=== PATIENT | male | born 1960 | race Caucasian/White ===

== ENCOUNTER → 2016-04-15 | Outpatient (CLI) | payer OTHER ==
[~2016-04-15] MED LIST: BUPR300T43 PO; CYAN100T PO; ERYTOIN6 OPL; IBUP-1451 PO; KETO2SHA TOP; LANS30CA12 PO; LISI-725 PO; METO-217 PO; NRN/300 PO; OXYC-643 PO; POLYSOL4 OPL; PRAV20TA PO; ROSU20TA PO; VENL-273 PO
--- NOTE | 2016-04-15 08:53 | DIAGNOSTIC IMAGING REPORT ---
MRI OF THE LEFT KNEE CLINICAL HISTORY: Left knee effusion. COMPARISON STUDY: Radiographs of left knee dated 04/04/2016. TECHNIQUE: MRI of the left knee was performed utilizing proton density, T1, and T2-weighted sequences in the axial, sagittal, coronal planes. IV contrast was not administered for this examination. FINDINGS: Menisci: The medial and lateral menisci are intact. Ligaments: The anterior and posterior cruciate ligaments are intact. The medial and lateral collateral ligaments are within normal limits. Extensor mechanism: The extensor mechanism is intact. There is nonspecific edema identified within the suprapatellar fat pad. Hoffa's fat pad is normal in appearance. Articular cartilage and bone: The articular cartilage is intact and well maintained all 3 compartments. Normal marrow signal is preserved of the visualized bony structures. Joint effusion: There is a small joint effusion. Soft tissues: The musculature surrounding the knee joint is normal in bulk and signal intensity. IMPRESSION: 1. There is no evidence of meniscal or ligamentous injury in the left knee. 2. There is a small joint effusion. 3. There is nonspecific edema within the suprapatellar fat pad. This could be seen in the setting of the quadriceps fat pad impingement syndrome. Clinical correlation will be required. Electronically signed by: Jesse Peguero M.D. 04/15/2016 8:50 AM Dictated Date/Time: 04/15/2016 8:42 AM
== END | disposition home or self-care (01) ==
LOC: C.MRI 07:44
PROVIDERS: ATTEND Family Medicine
DX: M23.8X2 Other internal derangements of left knee (principal); M25.462 Effusion, left knee; R60.0 Localized edema

== ENCOUNTER 2016-09-27 19:51 | Emergency (ER) | payer OTHER ==
[~2016-09-27] VITALS: Ht 185.4 cm; Wt 119.6 kg
[~2016-09-27 19:51] MED LIST changes: -CYAN100T PO; -LISI-725 PO; -OXYC-643 PO; -ROSU20TA PO
[2016-09-27 19:58] VITALS: TEMP 37.4; Ht 185.4 cm; Wt 119.6 kg
[2016-09-27] MEDS ORDERED: ROSU20TA PO (20:18)
[2016-09-27] MEDS ORDERED: CYAN100T PO (20:18)
[2016-09-27] MEDS ORDERED: LISI-725 PO (20:18)
[2016-09-27] MEDS ORDERED: OXYC-643 PO (20:18)
[2016-09-27] MEDS ORDERED: DEXAMETHASONE SOD INJ 10 MG/ML VIAL IV ONE (21:30)
[2016-09-27] MEDS ORDERED: PROCHLORPERAZINE 5 MG/ML 2 ML VIAL IV STA (21:30)
[2016-09-27] MEDS ORDERED: KETOROLAC TROMETHAMINE 30 MG/ML VIAL IV STA (21:30)
[2016-09-27] MEDS ORDERED: SODIUM CHLORIDE 0.9% 1000ML 1,000 ML IV STA (21:30)
[2016-09-27 21:31] LABS: BASO % 0.3 %; BASO ABS # 0.03 K/uL (0-0.2); COMPLETE YES; EOS % 0.7 %; HEMATOCRIT 44.1 % (42-52); IG% 0.2 %; LYMPH % 19.9 %; LYMPH ABS # 2.24 K/uL (1.2-3.4); MEAN CELL VOLUME 87.7 fL (80-100); MEAN CORPUSCULAR HEMOGLOBIN 29.6 pg (25-34); MEAN CORPUSCULAR HGB CONC 33.8 g/dl (32-36); MEAN PLATELET VOLUME 10.2 fL (7.4-10.4); MONO % 10.4 %; NEUT % 68.5 %; PLATELET COUNT 215 K/uL (130-400); RED BLOOD COUNT 5.03 M/uL (4.7-6.1); WHITE BLOOD COUNT 11.23 K/uL (4.8-10.8)
[2016-09-27 21:45] LABS: ALB/GLOB RATIO 1.2 (0.9-2); CALCIUM 8.9 mg/dl (8.5-10.1); CREATININE 1.4 mg/dl (0.60-1.40); POTASSIUM 4.2 mmol/L (3.5-5.1)
[2016-09-27 21:55] LABS: INR 0.9 (0.9-1.1); PROTHROMBIN TIME (PATIENT) 10.1 SECONDS (9.0-12.0)
--- NOTE | 2016-09-27 21:55 | DIAGNOSTIC IMAGING REPORT ---
SINGLE VIEW CHEST CLINICAL HISTORY: Change in mental status. Weakness. FINDINGS: An AP, portable, upright chest radiograph is compared to study dated 03/19/2013. The examination is degraded by portable technique, apical lordotic positioning, and patient rotation. The heart is top normal for projection. The pulmonary vasculature is noncongested. There is minimal bibasilar atelectasis. The lungs and pleural spaces are otherwise clear. No pneumothorax is seen. The bony thorax is grossly intact. IMPRESSION: No acute cardiopulmonary abnormality. Electronically signed by: Jesse Peguero M.D. 09/27/2016 9:53 PM Dictated Date/Time: 09/27/2016 9:52 PM
[2016-09-27 22:01] LABS: MAGNESIUM 2.1 mg/dl (1.8-2.4)
--- NOTE | 2016-09-27 22:24 | DIAGNOSTIC IMAGING REPORT ---
CT SCAN OF THE BRAIN WITHOUT IV CONTRAST CLINICAL HISTORY: Weakness. Change in mental status. COMPARISON STUDY: MRI of the brain dated 09/12/2012. TECHNIQUE: Unenhanced axial CT scan of the brain is performed from the vertex to the skull base. Automated dose control exposure was utilized. CT DOSE: 537.48 mGy.cm FINDINGS: Brain parenchyma: The brain parenchyma is normal in appearance. There is no hemorrhage, mass effect, or evidence of acute territorial ischemia by CT criteria. Thomas-white matter is preserved. No extra-axial fluid collection is seen. Ventricles, sulci, cisterns: Normal in configuration. Intracranial vasculature: The visualized intracranial vasculature at the skull base is normal in appearance. Calvarium: Unremarkable. Sinuses and mastoids: The visualized paranasal sinuses are clear. The mastoid air cells are well pneumatized. Orbits: The bony orbits are grossly intact. IMPRESSION: There is no hemorrhage, mass effect, or evidence of acute territorial ischemia by CT criteria. Electronically signed by: Jesse Peguero M.D. 09/27/2016 10:22 PM Dictated Date/Time: 09/27/2016 10:20 PM
--- NOTE | 2016-09-27 22:38 | EMERGENCY ROOM VISIT NOTE ---
History Report prepared by Beth: Shin Mccartney Under the Supervision of: Dr. Jian Whittington D.O. First contact with patient: 21:22 Chief Complaint: HEAD PAIN Stated Complaint: SEVERE HEAD PAIN History of Present Illness The patient is a 56 year old male who presents to the Emergency Room with complaints of a worsening headache starting three days ago. He rates his pain as a 9/10 in severity. The patient states he has had headaches before, but denies any similar to the severity of his current headache. The patient reports that he has a history of herniated discs and back surgeries. He reports that he has been feeling a recent tightness in his back and neck that has been causing pain. He reports that the recent pain has prompted him to visit his chiropractor yesterday, but denies any relief of symptoms. The patient states that the chiropractor told him to report to the ED if his symptoms worsened. He reports that he took medication to relieve his symptoms, but denies any relief of symptoms. The patient states that the headache has been worsening and is worse with movement and coughing. The patient states that due to the pain in his neck and head, his eustachian tubes feel like "they are going to burst." The patient reports that he took Oxycodone last night to aid him with sleeping. He reports that the tightness in his neck has improved since yesterday. The patient also reports a leg pain that it feels like it is bruising, a heavy sensation in his chest, and a shortness of breath. He reports that he has a history of PTSD and panic attacks and feels as if his chest pain and SOB may be stemming from these issues. He also reports that his temperature has been 99 and he always feels cold. The patient denies any history of migraines or concussions. Source of History: patient Onset: three days ago Position: head Symptom Intensity: 9/10 Quality: ache Timing: worsening Modifying Factors (Worsening): movement, other (coughing) Associated Symptoms: + neck pain, + chest pain, + SOB, + back pain Review of Systems See HPI for pertinent positives & negatives. A total of 10 systems reviewed and were otherwise negative. Past Medical & Surgical Medical Problems: (1) GERD (gastroesophageal reflux disease) (2) Herniated disc (3) Hypertension Surgical Problems: (1) Previous back surgery (2) [place] teeth removed Family History Cancer Diabetes mellitus Hypertension Social History Smoking Status: Never Smoker Marital Status: Housing Status: lives with significant other Occupation Status: employed Current/Historical Medications Scheduled Bupropion Hcl (Bupropion Hcl Xl), 300 MG PO DAILY Cyanocobalamin (Vitamin B-12), 100 MCG PO DAILY Gabapentin (Neurontin), 300 MG PO BID Ketoconazole (Topical) (Ketoconazole), 1 APPLN TOP WK Lansoprazole (Prevacid), 30 MG PO DAILY Lisinopril (Zestril), 20 MG PO QAM Metoprolol Succinate (Toprol Xl), 50 MG PO DAILY Polyethylene Glycol-Propylene (Systane), 1 DROP OPL TID Rosuvastatin Calcium (Crestor), 20 MG PO QPM Venlafaxine Hcl (Venlafaxine Hcl Er), 75 MG PO DAILY Scheduled PRN Ibuprofen Tab (Motrin), 800 MG PO TID PRN for Pain Oxycodone/Acetaminophen 5MG/325MG (Oxycodone/Acetaminophen 5MG/325MG), 1-2 TABLETS PO Q6 PRN for Pain Allergies Coded Allergies: No Known Allergies (Unverified , 09/27/16) Physical Exam Vital Signs Date Time Temp Pulse Resp B/P (MAP) Pulse Ox O2 Delivery O2 Flow Rate FiO2 09/27/16 22:21 56 16 154/95 95 09/27/16 19:58 37.4 64 20 161/101 93 Room Air Physical Exam CONSTITUTIONAL/VITAL SIGNS: Reviewed / noted above. GENERAL: Increased head pain with sitting up. Non-toxic in appearance. INTEGUMENTARY: Warm, dry, and [place]. HEAD: Normocephalic. EYES: without scleral icterus or trauma. ENT/OROPHARYNX: clear and moist. LYMPHADENOPATHY/NECK: Is supple without lymphadenopathy or meningismus. RESPIRATORY: Lungs clear and equal. CARDIOVASCULAR: Regular rate and rhythm. GI/ABDOMEN: Soft and nontender. No organomegaly or pulsatile mass. No rebound or guarding. Normal bowel sounds. EXTREMITIES: Warm and well perfused. BACK: No CVA tenderness. NEUROLOGICAL: Intact without focal deficits. PSYCHIATRIC: normal affect. MUSCULOSKELETAL: Normally developed with good muscle tone. Medical Decision & Procedures ER Provider Diagnostic Interpretation: Radiology results as stated below per my review and radiologist interpretation: CT SCAN OF THE BRAIN WITHOUT IV CONTRAST CLINICAL HISTORY: Weakness. Change in mental status. COMPARISON STUDY: MRI of the brain dated 09/12/2012. TECHNIQUE: Unenhanced axial CT scan of the brain is performed from the vertex to the skull base. Automated dose control exposure was utilized. CT DOSE: 537.48 mGy.cm FINDINGS: Brain parenchyma: The brain parenchyma is normal in appearance. There is no hemorrhage, mass effect, or evidence of acute territorial ischemia by CT criteria. Thomas-white matter is preserved. No extra-axial fluid collection is seen. Ventricles, sulci, cisterns: Normal in configuration. Intracranial vasculature: The visualized intracranial vasculature at the skull base is normal in appearance. Calvarium: Unremarkable. Sinuses and mastoids: The visualized paranasal sinuses are clear. The mastoid air cells are well pneumatized. Orbits: The bony orbits are grossly intact. IMPRESSION: There is no hemorrhage, mass effect, or evidence of acute territorial ischemia by CT criteria. Electronically signed by: Jesse Peguero M.D. 09/27/2016 10:22 PM Dictated Date/Time: 09/27/2016 10:20 PM SINGLE VIEW CHEST CLINICAL HISTORY: Change in mental status. Weakness. FINDINGS: An AP, portable, upright chest radiograph is compared to study dated 03/19/2013. The examination is degraded by portable technique, apical lordotic positioning, and patient rotation. The heart is top normal for projection. The pulmonary vasculature is noncongested. There is minimal bibasilar atelectasis. The lungs and pleural spaces are otherwise clear. No pneumothorax is seen. The bony thorax is grossly intact. IMPRESSION: No acute cardiopulmonary abnormality. Electronically signed by: Jesse Peguero M.D. 09/27/2016 9:53 PM Dictated Date/Time: 09/27/2016 9:52 PM Laboratory Results 09/27/16 20:42 Red Blood Count 5.03, Mean Corpuscular Volume 87.7, Mean Corpuscular Hemoglobin 29.6, Mean Corpuscular Hemoglobin Concent 33.8, Mean Platelet Volume 10.2, Neutrophils (%) (Auto) 68.5, Lymphocytes (%) (Auto) 19.9, Monocytes (%) (Auto) 10.4, Eosinophils (%) (Auto) 0.7, Basophils (%) (Auto) 0.3, Neutrophils # (Auto ) 7.69, Lymphocytes # (Auto) 2.24, Monocytes # (Auto) 1.17, Eosinophils # (Auto ) 0.08, Basophils # (Auto) 0.03 09/27/16 20:42 Test 09/27/16 20:40 09/27/16 20:42 Prothrombin Time 10.1 SECONDS (9.0-12.0) Prothromb Time International Ratio 0.9 (0.9-1.1) Activated Partial Thromboplast Time 26.3 SECONDS (21.0-31.0) Partial Thromboplastin Ratio 1.0 White Blood Count 11.23 K/uL (4.8-10.8) Red Blood Count 5.03 M/uL (4.7-6.1) Hemoglobin 14.9 g/dL (14.0-18.0) Hematocrit 44.1 % (42-52) Mean Corpuscular Volume 87.7 fL (80-100) Mean Corpuscular Hemoglobin 29.6 pg (25-34) Mean Corpuscular Hemoglobin Concent 33.8 g/dl (32-36) Platelet Count 215 K/uL (130-400) Mean Platelet Volume 10.2 fL (7.4-10.4) Neutrophils (%) (Auto) 68.5 % Lymphocytes (%) (Auto) 19.9 % Monocytes (%) (Auto) 10.4 % Eosinophils (%) (Auto) 0.7 % Basophils (%) (Auto) 0.3 % Neutrophils # (Auto) 7.69 K/uL (1.4-6.5) Lymphocytes # (Auto) 2.24 K/uL (1.2-3.4) Monocytes # (Auto) 1.17 K/uL (0.11-0.59) Eosinophils # (Auto) 0.08 K/uL (0-0.5) Basophils # (Auto) 0.03 K/uL (0-0.2) RDW Standard Deviation 39.6 fL (36.4-46.3) RDW Coefficient of Variation 12.4 % (11.5-14.5) Immature Granulocyte % (Auto) 0.2 % Immature Granulocyte # (Auto) 0.02 K/uL (0.00-0.02) Anion Gap 8.0 mmol/L (3-11) Est Creatinine Clear Calc Drug Dose 81.7 ml/min Estimated GFR () 65.6 Estimated GFR (Non- 56.6 BUN/Creatinine Ratio 7.0 (10-20) Calcium Level 8.9 mg/dl (8.5-10.1) Magnesium Level 2.1 mg/dl (1.8-2.4) Total Bilirubin 1.4 mg/dl (0.2-1) Aspartate Amino Transf (AST/SGOT) 18 U/L (15-37) Alanine Aminotransferase (ALT/SGPT) 29 U/L (12-78) Alkaline Phosphatase 67 U/L (45-117) Total Creatine Kinase 70 U/L (39-308) Creatine Kinase MB < 0.5 ng/ml (0.5-3.6) Creatine Kinase MB Ratio (0-3.0) Troponin I < 0.015 ng/ml (0-0.045) Total Protein 7.0 gm/dl (6.4-8.2) Albumin 3.8 gm/dl (3.4-5.0) Globulin 3.2 gm/dl (2.5-4.0) Albumin/Globulin Ratio 1.2 (0.9-2) Lipase 105 U/L (73-393) Chemistry Specimen Hemolysis Laboratory results as stated above per my review. Medications Administered Medications (Trade) Dose Ordered Sig/Christina Route Start Time Stop Time Status Last Admin Dose Admin Sodium Chloride 1,000 ml @ 999 mls/hr Q1H1M STAT IV 09/27/16 21:30 09/27/16 22:30 DC 09/27/16 21:48 999 MLS/HR Ketorolac Tromethamine (Toradol Inj) 30 mg NOW STAT IV 09/27/16 21:30 09/27/16 21:33 DC 09/27/16 21:48 30 MG Dexamethasone Sodium Phosphate (Decadron Inj) 10 mg NOW ONCE IV 09/27/16 21:30 09/27/16 21:33 DC 09/27/16 21:48 10 MG Prochlorperazine Edisylate (Compazine Inj) 10 mg NOW STAT IV 09/27/16 21:30 09/27/16 21:33 DC 09/27/16 21:48 10 MG ECG Indication: chest pain Rate (beats per minute): 60 Findings: no acute ischemic change, no ectopy ED Course 2115: Previous medical records were reviewed. The patient was evaluated in room C07. A complete history and physical examination was performed. 2129: Compazine Injection 10 mg Iv, Decadron Injection 10 mg IV, Toradol Injection 30 mg IV, Sodium Chloride 1000 ml @ 999 mls/hr 5: On reevaluation, the patient is resting comfortably. I discussed the results and findings with the patient. He verbalized agreement of the treatment plan. He was discharged home. Medical Decision Differential includes: Acute intracranial bleed, trauma, meningitis, encephalitis, increased intracranial pressure, mass or mass effect, facial or dental infection, temporal arteritis, CVA, TIA, acute hypertensive emergency, sinusitis, carbon monoxide exposure. Medication Reconciliation: I attest that I have personally reviewed the patient' s current medication list. Patient was found to have a slightly elevated blood pressure due to circumstances. I do not believe that the patient requires hypertension monitoring. This is a 56-year-old male who presents to the ED with a chief complaint of a headache for the past 4 days. He is headache is worse when he moves. He states that it is increased with coughing. He denies any recent fevers or illness. Further details are listed above. His blood pressure was hypertensive. This is likely situational. He is afebrile. His exam is essentially unremarkable other than some discomfort with sitting up during exam. He states this increases pain. He does report some sensation of eustachian tube pressure. His tympanic membranes are clear. The patient's lungs clear abdomen soft and nontender. Extremities did not reveal any abnormalities. A CT scan of the brain did not show any acute process. A chest x-ray was also negative for acute disease. CBC and complete metabolic panel were unremarkable. Troponin was negative. EKG shows a normal sinus rhythm. The patient was told the results. He was treated with IV Compazine, IV Decadron , IV fluids and IV Toradol. He is felt to be stable for discharge and outpatient follow-up. Impression Primary Impression: Headache Scribe Attestation The scribe's documentation has been prepared under my direction and personally reviewed by me in its entirety. I confirm that the note above accurately reflects all work, treatment, procedures, and medical decision making performed by me. Departure Information Dispostion Home / Self-Care Referrals Fidel Dodge MD (PCP) Patient Instructions My [facility] Additional Instructions Follow-up with your doctor for further care and evaluation in 1-2 days. Return to the emergency department for worsening or new symptoms or any concerns. You have been examined and treated today on an emergency basis only. This is not a substitute for, or an effort to provide, complete comprehensive medical care. It is impossible to recognize and treat all injuries or illnesses in a single emergency department visit. It is therefore important that you follow up closely with your doctor. Call as soon as possible for an appointment.
[2016-09-27] MEDS ORDERED: PERCOCET HOME PACK PO ONE (23:00)
[2016-09-27 23:30] VITALS: BP 158/82; PULSE 57; O2SAT 95
[2016-09-27] MEDS ORDERED: NORCO 5/325MG HOME PACK PO ONE (23:30)
== END 2016-09-27 22:30 | disposition home or self-care (01) ==
LOC: C.EDB 19:52 → C.EDC 22:30
DX: R51 Headache (principal); K21.9 Gastro-esophageal reflux disease without esophagitis; I10 Essential (primary) hypertension

== ENCOUNTER 2017-01-07 11:51 | Emergency (ER) | payer OTHER ==
[~2017-01-07] VITALS: Ht 185.4 cm; Wt 117.4 kg
[~2017-01-07 11:51] MED LIST changes: +CYAN100T PO; -ERYTOIN6 OPL; +LISI-725 PO; +OXYC-643 PO; -PRAV20TA PO; +ROSU20TA PO
[2017-01-07 11:56] VITALS: TEMP 36.8; Ht 185.4 cm; Wt 117.4 kg
[2017-01-07] MEDS ORDERED: DICL1GEL12 TOP (12:25)
[2017-01-07] MEDS ORDERED: FAMOTIDINE 20 MG TAB PO ONE (12:45)
--- NOTE | 2017-01-07 13:36 | EMERGENCY ROOM VISIT NOTE ---
History Report prepared by Beth: Lila Jorge Under the Supervision of: Dr. Nikhil Hardin M.D. First contact with patient: 12:05 Chief Complaint: ALLERGIC REACTION Stated Complaint: SWOLLEN LIPS History of Present Illness The patient is a 56 year old white male with a past medical history of HTN who presents to the ED with a cc of an episode of an allergic reaction beginning this morning. The patient woke up this morning and had some swelling of his right upper lip. He states that this has been worsening over the past 3 hours. Positive facial numbness, difficulty swallowing. Negative dental pain. Pt took a Benadryl en route to the ED. Pt denies any recent changes in creams or detergents. He had a gluten free carrot cake yesterday but denies any other new foods. He had a flu shot this week. Pt takes takes lisinopril. He has been taking a different brand of Sudafed for the past 3 days for URI symptoms. Source of History: patient, spouse/significant other Onset: this morning Position: lip Quality: other (allergic rxn) Timing: worsening, other (episode) Modifying Factors (Worsening): other (time) Note: Positive facial numbness, difficulty swallowing. Negative dental pain. Review of Systems See HPI for pertinent positives and negatives. A total of ten systems were reviewed and were otherwise negative. Past Medical & Surgical Medical Problems: (1) GERD (gastroesophageal reflux disease) (2) Herniated disc (3) Hypertension Surgical Problems: (1) Previous back surgery (2) [employer] teeth removed Family History Cancer Diabetes mellitus Hypertension Social History Smoking Status: Never Smoker Marital Status: Housing Status: lives with significant other Occupation Status: employed Current/Historical Medications Scheduled Bupropion Hcl (Bupropion Hcl Xl), 300 MG PO DAILY Cyanocobalamin (Vitamin B-12), 100 MCG PO DAILY Diclofenac Sodium (Topical) (Voltaren 1% Top Gel), 1 APPLN TOP UD Epinephrine (Epipen), 0.3 MG IM UD Gabapentin (Neurontin), 300 MG PO BID Lansoprazole (Prevacid), 30 MG PO DAILY Lisinopril (Zestril), 20 MG PO QAM Metoprolol Succinate (Toprol Xl), 50 MG PO DAILY Prednisone (Prednisone), 50 MG PO DAILY Rosuvastatin Calcium (Crestor), 20 MG PO QPM Venlafaxine Hcl (Venlafaxine Hcl Er), 75 MG PO DAILY Scheduled PRN Ibuprofen Tab (Motrin), 800 MG PO TID PRN for Pain Allergies Coded Allergies: Acetaminophen (Verified Adverse Reaction, Intermediate, extreme vomiting, 01/07/17) Oxycodone (Verified Adverse Reaction, Intermediate, extreme vomiting, ) Physical Exam Vital Signs Date Time Temp Pulse Resp B/P (MAP) Pulse Ox O2 Delivery O2 Flow Rate FiO2 01/07/17 14:52 52 16 133/84 99 01/07/17 12:56 58 18 160/88 96 Room Air 01/07/17 12:25 96 Room Air 01/07/17 12:15 Room Air 01/07/17 12:10 57 01/07/17 12:06 60 20 159/91 97 Room Air 01/07/17 11:56 36.8 59 17 154/96 99 Room Air Physical Exam GENERAL: Awake, alert, well-appearing, NAD HENT: Normocephalic, atraumatic. Fat upper lip, no stridor, no wheezing, no rash , no dental pain or swelling. Posterior oropharynx is clear. EYES: Normal conjunctiva. Sclera non-icteric. NECK: Supple. No nuchal rigidity. FROM. RESPIRATORY: CTAB, no rhonchi, wheezing, crackles CARDIAC: RRR, no MRG ABDOMEN: Soft, NTND, BS+ MSK: No chest wall TTP, no LE edema NEURO: GCS 15, CN 2-12 intact, moves all 4s on command SKIN: No rash or jaundice noted. Medical Decision & Procedures Medications Administered Medications (Trade) Dose Ordered Sig/Christina Route Start Time Stop Time Status Last Admin Dose Admin Prednisone (PredniSONE TAB) 60 mg NOW STAT PO 01/07/17 12:44 01/07/17 12:45 DC 01/07/17 12:55 60 MG Diphenhydramine HCl (Benadryl Cap) 25 mg NOW ONCE PO 01/07/17 12:45 01/07/17 12:47 DC 01/07/17 12:54 25 MG Famotidine (Pepcid Tab) 40 mg NOW ONCE PO 01/07/17 12:45 01/07/17 12:47 DC 01/07/17 12:54 40 MG ED Course 1205: The patient was evaluated in room C8. A complete history and physical exam was performed. 1244: Prednisone 60 mg PO 1245: Pepcid 40 mg PO, Benadryl 25 mg PO 1313: Upon reevaluation the patient is doing well. 1429: I reassessed the patient at this time. He is feeling better and resting comfortably. I discussed the results and treatment plan with the patient. I answered all pertaining questions that he had. He expressed understanding and verbalized agreement. The patient will be discharged home. Medical Decision The patient is a 56 year old white male with a past medical history of HTN who presents to the ED with a cc of an episode of an allergic reaction beginning this morning. Differential diagnosis: Etiologies such as allergic reaction, anaphylaxis, urticaria, Loera-Reginaldo syndrome, toxic epidermal necrolysis, erythema multiforme, cellulitis, as well as others were entertained. Patient was seen and evaluated at the bedside. Patient does have notable upper lip swelling. Patient does not have any stridor or wheezing. Patient has no evidence of urticaria. Patient denies any recent changes in lyubov, detergents, lotions, travel, diet. Patient did have a flu shot one week ago. Patient denies any other acute complaints. Patient does take lisinopril. Patient did take it this morning. Patient noticed that after waking this morning. Patient did go hunting but noticed it got progressively worse. Patient was given Benadryl, steroids, and Pepcid. Upon reassessment patient had no stridor, wheezing. His swelling did look mildly improved. Patient was told to stop taking his lisinopril. Patient was given strict follow-up, return precautions, and discharge instructions. Patient was told to return if anything got worse. Patient was also told to follow-up with his PCP as he is on multiple antihypertensives and should discuss introducing an alternative agent to the lisinopril. Patient agreed with plan of care was safely discharged home. Medication Reconcilliation Current Medication List: was personally reviewed by me Blood Pressure Screening Patient's blood pressure: Elevated blood pressure Blood pressure disposition: Referred to PCP Impression Primary Impression: Angioedema of lips Scribe Attestation The scribe's documentation has been prepared under my direction and personally reviewed by me in its entirety. I confirm that the note above accurately reflects all work, treatment, procedures, and medical decision making performed by me. Departure Information Dispostion Home / Self-Care Prescriptions Epinephrine (EPIPEN) 0.3 Mg/0.3 Ml Inj 0.3 MG IM UD, #1 BOX Prov: Nikhil Hardin M.D. 01/07/17 Prednisone (PREDNISONE) 50 Mg Tab 50 MG PO DAILY for 4 Days, #4 TAB Prov: Nikhil Hardin M.D. 01/07/17 Referrals Fidel Dodge MD (PCP) Patient Instructions My [facility] Additional Instructions Please return to the emergency department if you have worsening or recurrent symptoms not amenable to at-home treatment. Please call for a follow-up appointment with her primary care physician. Please take your medications as prescribed. If you have other concerns and/or complaints please feel free to also call your primary care physician's office or return the ED for further evaluation, management, and treatment. You may take 600 mg Ibuprofen every 6 hours as needed for pain with food for no more than 2 consecutive days. You may take tylenol 1000mg every 6 hours as needed for pain. You may take motrin and tylenol separately or at the same time. Please stop taking your lisinopril and discuss an alternative anti-hypertensive medication with your primary care physician. Take the steroids in the morning with food. You have been examined and treated today on an emergency basis only. This is not a substitute for, or an effort to provide, complete comprehensive medical care. It is impossible to recognize and treat all injuries or illnesses in a single emergency department visit. It is therefore important that you follow up closely with [facility]. Call as soon as possible for an appointment. Thank you for your time and consideration. I look forward to speaking with you again soon. Please don't hesitate to call us if you have any questions. Problem Qualifiers Primary Impression: Angioedema of lips Encounter type: initial encounter Qualified Codes: T78.3XXA - Angioneurotic edema, initial encounter
[2017-01-07] MEDS ORDERED: EPP3/2 IM (14:34)
[2017-01-07] MEDS ORDERED: PRED50TA PO (14:34)
[2017-01-07 14:52] VITALS: BP 133/84; PULSE 52; O2SAT 99
== END 2017-01-07 14:53 | disposition home or self-care (01) ==
LOC: C.EDB 11:52 → C.EDC 14:53
DX: T78.3XXA Angioneurotic edema, initial encounter (principal); X58.XXXA Exposure to other specified factors, initial encounter; I10 Essential (primary) hypertension; K21.9 Gastro-esophageal reflux disease without esophagitis; Z83.3 Family history of diabetes mellitus; Z82.49 Family history of ischemic heart disease and other diseases of the circulatory system

== ENCOUNTER 2021-02-28 20:05 | Inpatient (IN) ==
[2021-02-28] MEDS ORDERED: dexAMETHasone 6 MG in SYRINGE 0 ML IV ONE (20:22)
[2021-02-28] MEDS ORDERED: SODIUM CHLORIDE 0.9% 1000ML 1,000 ML IV ONE (20:23)
[2021-02-28 20:56] LABS: Hematocrit (blood only) 38.3 % (42-52); Hemoglobin 13.6 g/dL (14.0-18.0); Immature Granulocytes # (auto) 0.04 K/uL (0.00-0.02); Immature Granulocytes % (auto) 0.6 %; Lymphocytes # (auto) 0.66 K/uL (1.2-3.4); Lymphocytes % (auto) 9.2 %; Mean Corpuscular Hemoglobin 30.5 pg (25-34); Mean Corpuscular Hgb Conc 35.5 g/dL (32-36); Mean Corpuscular Volume 85.9 fL (80-100); Mean Platelet Volume 9.6 fL (7.4-10.4); Monocytes # (auto) 0.79 K/uL (0.11-0.59); Neutrophils # (auto) 5.67 K/uL (1.4-6.5); Neutrophils % (auto) 79.2 %; Platelet Count 197 K/uL (130-400); RDW Standard Deviation 37.9 fL (36.4-46.3); Red Blood Count 4.46 M/uL (4.7-6.1); White Blood Count 7.16 K/uL (4.8-10.8)
[2021-02-28 20:59] LABS: iSTAT Creatinine 0.8 mg/dl (0.6-1.3); iSTAT Hemoglobin 13.3 g/dl (14.0-18.0); iSTAT Ionized Calcium 1.07 mmol/l (1.12-1.32); iSTAT Potassium 3.2 mmol/L (3.3-5.0)
[2021-02-28 21:07] LABS: Partial Thromboplastin Ratio 1.2; Prothrombin Time 9.9 Seconds (9.0-12.0)
[2021-02-28 21:14] LABS: Albumin Level 2.7 gm/dl (3.4-5.0); Aspartate Aminotransferase 42 U/L (15-37); BUN Creatinine Ratio 11.5 (10-20); Blood Urea Nitrogen 10 mg/dl (7-18); Calcium 7.5 mg/dl (8.5-10.1); Carbon Dioxide 25 mmol/L (21-32); Chloride 98 mmol/L (98-107); Creatinine Clr Calc Pharmacy 120.1 ml/min; Est GFR (African American) 108.7 ml/min; Est GFR (Non-African American) 93.8 ml/min; Glucose 109 mg/dl (70-99); Magnesium 1.8 mg/dl (1.8-2.4); Potassium 3.2 mmol/L (3.5-5.1); Sodium 132 mmol/L (136-145)
[2021-02-28 21:15] LABS: Oxygen Saturation VBG 73.5 %; pH VBG 7.49 (7.36-7.41)
[2021-02-28 21:19] LABS: Alanine Aminotransferase 33 (12-78); Albumin Globulin Ratio 0.6 (0.9-2); Alkaline Phosphatase 77 U/L (45-117); Bilirubin,Total 0.7 mg/dl (0.2-1); Globulin 4.5 gm/dl (2.5-4.0); Total Protein 7.2 gm/dl (6.4-8.2); Troponin I < 0.015 ng/ml (0-0.045)
[2021-02-28] MEDS ORDERED: OPTIRAY 320 125ml IV ONE (21:35)
[2021-02-28] MEDS ORDERED: ACETAMINOPHEN 500 MG TAB PO STA (21:41)
--- NOTE | 2021-02-28 21:55 | Emergency Department Note ---
History of Present Illness General Chief Complaint: Shortness of Breath/Dyspnea Stated Complaint: COVID+, SOB, DIZZY Time Seen by Provider: 02/28/21 20:21 History of Present Illness Provider Complaint: shortness of breath and cough Onset (ago): day(s) (8) Severity: moderate Maximum Pain Intensity: 7 Current Pain Intensity: 7 Relieved By: + nothing Exacerbated By: + exertion and + coughing Context: + recent illness (Diagnosed with Covid 8 days ago) Associated symptoms: + fever, + cough, + wheezing, + sputum production and + chest congestion; no palpitations, no hemoptysis, no syncope or no abdominal sheree n Related Data Home oxygen amount: none Home Medications Medication Instructions Recorded Confirmed Type amlodipine 5 mg tablet (Norvasc) 5 mg PO QAM 01/14/21 02/12/21 History bupropion HCl 300 mg 24 hr tablet, 300 mg PO PM 01/14/21 02/12/21 History extended release carvedilol 6.25 mg tablet 6.25 mg PO BID 01/14/21 02/12/21 History cholecalciferol (vitamin D3) 25 25 mcg PO HS 01/14/21 02/12/21 History mcg (1,000 unit) capsule cyanocobalamin (vitamin B-12) 1,000 mcg PO HS 01/14/21 02/12/21 History 1,000 mcg capsule ezetimibe 10 mg tablet 10 mg PO QAM 01/14/21 02/12/21 History fluoxetine 40 mg capsule (Prozac) 40 mg PO QAM 01/14/21 02/12/21 History fluticasone propionate 50 2 spray INTRANASAL DAILY 01/14/21 02/12/21 History mcg/actuation nasal spray,suspension (Children's Flonase Allergy Relief) gabapentin 400 mg capsule 400 mg PO TID 01/14/21 02/12/21 History hydrochlorothiazide 25 mg tablet 25 mg PO QAM 01/14/21 02/12/21 History ketoconazole 2 % shampoo 1 applic TOPICAL Q14D 01/14/21 02/12/21 History lansoprazole 30 mg capsule,delayed 30 mg PO BID 01/14/21 02/12/21 History release hydrocodone bitartrate 10 mg 10 mg PO Q12H PRN 01/15/21 02/12/21 History capsule, oral only, extended rel 12 hr ibuprofen 200 mg tablet (Motrin IB) 200 mg PO Q6H PRN 01/15/21 02/12/21 History pseudoephedrine HCl 120 mg 120 mg PO Q12H PRN 01/15/21 02/12/21 History tablet,extended release (Sudafed 12 Hour) Allergies Allergy/AdvReac Type Severity Reaction Status Date / Time lisinopril Allergy Intermediate Angioedema Verified 02/28/21 21:58 pentazocine [From [facility]win] AdvReac Mild Vomiting Verified 02/28/21 21:58 Past Med/Surg History Medical History Acoustic neuroma Left ear Anxiety 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 intermittent migraines Depression GERD (gastroesophageal reflux disease) Herniated disc Lumbar/cervical > partially limitation cervical ROM per pt Hyperlipidemia Hypertension Obesity Osteoarthritis PTSD (post-traumatic stress disorder) Hx PTSD (work-related) Sleep apnea No device Spinal stenosis Surgical History H/O colonoscopy H/O excision of dermoid cyst H/O knee surgery Left x1, right x2 H/O shoulder surgery Right x2 History of anesthesia reaction Difficulty with anesthesia induction with prior colonoscopies per pt History of carpal tunnel release R/L History of esophagogastroduodenoscopy (EGD) + dilation History of tooth extraction Hx laparoscopic cholecystectomy (02/01/21) Laparoscopic cholecystectomy Dr. Lorenzo 02/01/2021 Family History Mother Colorectal cancer Father Diabetes Hypertension Social History Smoking Status: Never smoker Second Hand Exposure: No; Hx Alcohol Use: Yes Alcohol type: beer, wine and hard liquor Hx Substance Use: No Preferred Language: Tamaz[place] Communication Ability: Effective Voltage Inspector Required: No Beliefs That Will Affect Care: None marital status: Current Living Situation: Spouse current occupational status: employed and retired How many Children do You have: 2 Feels Safe at Home: Yes during the past year weight has: remained stable Assistive Devices: Contacts, Glasses and Hearing Aid - Left Review of Systems A total of 10 systems reviewed and were otherwise negative Physical Exam Vital Signs: Vital Signs - 24 hr 02/28/21 20:09 02/28/21 20:16 02/28/21 20:52 Temperature 37.2 C Temperature Source Oral Pulse Rate 82 Pulse Rate [Left A pical] Respiratory Rate 22 Respiratory Effort / Characteristics Respiratory Depth Blood Pressure 134/79 Blood Pressure [Ri ght Arm] Blood Pressure Linda n 97 Blood Pressure Linda n [Right Arm] Blood Pressure Pos ition Sitting Blood Pressure Pos ition [Right Arm] Pulse Oximetry 87 L 92 93 Oxygen Delivery Me thod Nasal Cannula Nasal Cannula Nasal Cannula Oxygen Flow Rate 4 4 Sepsis Recent Feve r Within 48 Hours Yes Sepsis New/Unexpla ined Change in Men rosalia Status N/A Sepsis Action Take n by Nursing No Action Required Pulse Oximetry Pos t Tiitration 92 02/28/21 20:53 Temperature Temperature Source Pulse Rate Pulse Rate [Left A pical] 73 Respiratory Rate 22 Respiratory Effort / Characteristics Non-Labored Sponta neous Respiratory Depth Normal Blood Pressure Blood Pressure [Ri ght Arm] 174/96 H Blood Pressure Linda n Blood Pressure Linda n [Right Arm] 122 Blood Pressure Pos ition Blood Pressure Pos ition [Right Arm] Lying Pulse Oximetry 94 Oxygen Delivery Me thod Nasal Cannula Oxygen Flow Rate 6 Sepsis Recent Feve r Within 48 Hours Sepsis New/Unexpla ined Change in Men rosalia Status Sepsis Action Take n by Nursing Pulse Oximetry Pos t Tiitration Physical Exam: Physical Exam GENERAL: He is oriented to person, place, and time. He appears well-developed and well-nourished. He does not appear distressed. HENT: Exam performed. - Head: Normocephalic and atraumatic. - Right Ear: External ear normal. No mastoid tenderness. - Left Ear: External ear normal. No mastoid tenderness. - Mouth/Throat: The oropharynx is clear and moist. No trismus in the jaw. No dental abscesses or uvula swelling. No oropharyngeal exudate or tonsillar abscesses. EYES: Conjunctivae and EOM are normal. Pupils are equal, round, and reactive to light. Right eye exhibits no discharge. Left eye exhibits no discharge. No scleral icterus. NECK: Normal range of motion. Neck supple. No JVD present. No spinous process tenderness present. No carotid bruit present. No rigidity. No tracheal deviation and normal range of motion present. No Brudzinski's sign and no Kernig's sign noted. CV: Normal rate, regular rhythm, normal heart sounds and intact distal pulses. There is no peripheral edema. Palpable radial pulses bue. PULM/CHEST: Rhonchi bilaterally. Tachypneic. ABD: The abdomen is soft. Bowel sounds are normal. He has no distension. No mass is present. There is no tenderness. There is no rebound, no guarding, no Yanes's sign and no tenderness at McBurney's point. Rovsig negative. MUSC/SKEL: Normal range of motion. There is no peripheral edema, tenderness or deformity. LYMPH: No cervical adenopathy. NEURO: He is alert and oriented to person, place, and time. He has normal strength. No cranial nerve deficit or sensory deficit. Coordination and gait normal. GCS eye subscore is 4. GCS verbal subscore is 5. GCS motor subscore is 6. Cerebellar tests wnl. SKIN: Skin is warm and dry. He is not diaphoretic. PSYCH: He has a normal mood and affect. Behavior is normal. Judgment and thought content normal. Course Course 2020: The patient was evaluated in room B7. A complete history and physical exam was performed Cardiac monitoring: An order was placed for continuous cardiac monitoring. The monitor shows a rate of 70 with sinusrhythm Patient was found to be hypoxic on room air. Patient was placed on supplemental oxygen via nasal cannula which improved his oxygen saturation. Decadron 6 mg IV ordered for the patient. 2157: Vital signs stable on supplemental oxygen. Labs are within normal limits. CTA shows no PE and shows bilateral groundglass opacities. [facility] team Dr. Beltran notified. Administered Medications Discontinued Medications Acetaminophen (Acetaminophen 500 Mg Tab) 1,000 mg PO NOW STA Stop: 02/28/21 21:42 Last Admin: 02/28/21 21:44 Dose: 1,000 mg Documented by: [id number] Dexamethasone 6 mg/ Syringe 1.5 mls @ 1 mls/min IV ONE ONE Stop: 02/28/21 20:23 Last Admin: 02/28/21 21:02 Dose: 1 mls/min Documented by: [id number] Sodium Chloride (Nss 1000ml) 1,000 mls @ 999 mls/hr IV .Q1H1M ONE Stop: 02/28/21 21:23 Last Infusion: 02/28/21 21:51 Dose: 0 mls/hr Documented by: [id number] Admin: 02/28/21 20:43 Dose: 999 mls/hr Documented by: [id number] Ioversol (Optiray 320 125ml) 120 ml IV ONCE ONE Stop: 02/28/21 21:36 Last Admin: 02/28/21 21:36 Dose: 120 ml Documented by: [id number] Medical Decision Making Laboratory Data Result diagrams: 02/28/21 20:43 02/28/21 20:43 Lab Results 02/28/21 02/28/21 02/28/21 Range/Units 20:43 20:43 20:43 WBC 7.16 (4.8-10.8) K/uL RBC 4.46 L (4.7-6.1) M/uL Hgb 13.6 L (14.0-18.0) g/dL POC Hgb (14.0-18.0) g/dl Hct 38.3 L (42-52) % POC Hct (42-52) % MCV 85.9 (80-100) fL MCH 30.5 (25-34) pg MCHC 35.5 (32-36) g/dL RDW Std Deviation 37.9 (36.4-46.3) fL RDW Coeff of Natali 12.0 (11.5-14.5) % Plt Count 197 (130-400) K/uL MPV 9.6 (7.4-10.4) fL Immature Gran % (Auto) 0.6 % Neut % (Auto) 79.2 % Lymph % (Auto) 9.2 % [place] % (Auto) 11.0 % Eos % (Auto) 0.0 % Baso % (Auto) 0.0 % Neut # (Auto) 5.67 (1.4-6.5) K/uL Lymph # (Auto) 0.66 L (1.2-3.4) K/uL [place] # (Auto) 0.79 H (0.11-0.59) K/uL Eos # (Auto) 0.00 (0-0.5) K/uL Baso # (Auto) 0.00 (0-0.2) K/uL Immature Gran # (Auto) 0.04 H (0.00-0.02) K/uL PT 9.9 (9.0-12.0) Seconds INR 1.0 (0.9-1.1) APTT 31.0 (21.0-31.0) Seconds PTT Ratio 1.2 VBG pH (7.36-7.41) VBG pCO2 (38-50) mmHg VBG pO2 mmHg VBG HCO3 mmol/L VBG O2 Saturation % VBG Base Excess mEq/L Barometric Pressure mm/Hg POC Sodium (135-144) mmol/L Sodium 132 L (136-145) mmol/L POC Potassium (3.3-5.0) mmol/L Potassium 3.2 L (3.5-5.1) mmol/L POC Chloride (101-112) mmol/L Chloride 98 (98-107) mmol/L Carbon Dioxide 25 (21-32) mmol/L POC Total CO2 (24-31) mmol/L Anion Gap 9.0 (3-11) POC Anion Gap (16-25) mmol/L POC BUN (7-18) mg/dl BUN 10 (7-18) mg/dl Creatinine 0.90 (0.6-1.4) mg/dl POC Creatinine (0.6-1.3) mg/dl Est Cr Clr Drug Dosing 120.1 ml/min Est GFR ( Amer) 108.7 ml/min Est GFR (Non-Af Amer) 93.8 ml/min BUN/Creatinine Ratio 11.5 (10-20) Glucose 109 H (70-99) mg/dl POC Glucose (other) (70-99) mg/dl Lactate (0.4-2.0) mmol/L Calcium 7.5 L (8.5-10.1) mg/dl POC Ioniz Calcium Sharon (1.12-1.32) mmol/l Magnesium 1.8 (1.8-2.4) mg/dl Total Bilirubin 0.7 (0.2-1) mg/dl AST 42 H (15-37) U/L ALT 33 (12-78) Alkaline Phosphatase 77 (45-117) U/L Troponin I < 0.015 (0-0.045) ng/ml Total Protein 7.2 (6.4-8.2) gm/dl Albumin 2.7 L (3.4-5.0) gm/dl Globulin 4.5 H (2.5-4.0) gm/dl Albumin/Globulin Ratio 0.6 L (0.9-2) Procalcitonin (0-0.5) ng/ml 02/28/21 02/28/21 02/28/21 Range/Units 20:43 20:43 20:46 WBC (4.8-10.8) K/uL RBC (4.7-6.1) M/uL Hgb (14.0-18.0) g/dL POC Hgb 13.3 L (14.0-18.0) g/dl Hct (42-52) % POC Hct 39 L (42-52) % MCV (80-100) fL MCH (25-34) pg MCHC (32-36) g/dL RDW Std Deviation (36.4-46.3) fL RDW Coeff of Natali (11.5-14.5) % Plt Count (130-400) K/uL MPV (7.4-10.4) fL Immature Gran % (Auto) % Neut % (Auto) % Lymph % (Auto) % [place] % (Auto) % Eos % (Auto) % Baso % (Auto) % Neut # (Auto) (1.4-6.5) K/uL Lymph # (Auto) (1.2-3.4) K/uL [place] # (Auto) (0.11-0.59) K/uL Eos # (Auto) (0-0.5) K/uL Baso # (Auto) (0-0.2) K/uL Immature Gran # (Auto) (0.00-0.02) K/uL PT (9.0-12.0) Seconds INR (0.9-1.1) APTT (21.0-31.0) Seconds PTT Ratio VBG pH (7.36-7.41) VBG pCO2 (38-50) mmHg VBG pO2 mmHg VBG HCO3 mmol/L VBG O2 Saturation % VBG Base Excess mEq/L Barometric Pressure mm/Hg POC Sodium 132 L (135-144) mmol/L Sodium (136-145) mmol/L POC Potassium 3.2 L (3.3-5.0) mmol/L Potassium (3.5-5.1) mmol/L POC Chloride 94 L (101-112) mmol/L Chloride (98-107) mmol/L Carbon Dioxide (21-32) mmol/L POC Total CO2 24 (24-31) mmol/L Anion Gap (3-11) POC Anion Gap 17.0 (16-25) mmol/L POC BUN 10 (7-18) mg/dl BUN (7-18) mg/dl Creatinine (0.6-1.4) mg/dl POC Creatinine 0.8 (0.6-1.3) mg/dl Est Cr Clr Drug Dosing ml/min Est GFR ( Amer) ml/min Est GFR (Non-Af Amer) ml/min BUN/Creatinine Ratio (10-20) Glucose (70-99) mg/dl POC Glucose (other) 112 H (70-99) mg/dl Lactate 1.2 (0.4-2.0) mmol/L Calcium (8.5-10.1) mg/dl POC Ioniz Calcium Sharon 1.07 L (1.12-1.32) mmol/l Magnesium (1.8-2.4) mg/dl Total Bilirubin (0.2-1) mg/dl AST (15-37) U/L ALT (12-78) Alkaline Phosphatase (45-117) U/L Troponin I (0-0.045) ng/ml Total Protein (6.4-8.2) gm/dl Albumin (3.4-5.0) gm/dl Globulin (2.5-4.0) gm/dl Albumin/Globulin Ratio (0.9-2) Procalcitonin < 0.05 (0-0.5) ng/ml 02/28/21 Range/Units 20:58 WBC (4.8-10.8) K/uL RBC (4.7-6.1) M/uL Hgb (14.0-18.0) g/dL POC Hgb (14.0-18.0) g/dl Hct (42-52) % POC Hct (42-52) % MCV (80-100) fL MCH (25-34) pg MCHC (32-36) g/dL RDW Std Deviation (36.4-46.3) fL RDW Coeff of Natali (11.5-14.5) % Plt Count (130-400) K/uL MPV (7.4-10.4) fL Immature Gran % (Auto) % Neut % (Auto) % Lymph % (Auto) % [place] % (Auto) % Eos % (Auto) % Baso % (Auto) % Neut # (Auto) (1.4-6.5) K/uL Lymph # (Auto) (1.2-3.4) K/uL [place] # (Auto) (0.11-0.59) K/uL Eos # (Auto) (0-0.5) K/uL Baso # (Auto) (0-0.2) K/uL Immature Gran # (Auto) (0.00-0.02) K/uL PT (9.0-12.0) Seconds INR (0.9-1.1) APTT (21.0-31.0) Seconds PTT Ratio VBG pH 7.49 H (7.36-7.41) VBG pCO2 33 L (38-50) mmHg VBG pO2 38 mmHg VBG HCO3 25 mmol/L VBG O2 Saturation 73.5 % VBG Base Excess 2.0 mEq/L Barometric Pressure 733.9 mm/Hg POC Sodium (135-144) mmol/L Sodium (136-145) mmol/L POC Potassium (3.3-5.0) mmol/L Potassium (3.5-5.1) mmol/L POC Chloride (101-112) mmol/L Chloride (98-107) mmol/L Carbon Dioxide (21-32) mmol/L POC Total CO2 (24-31) mmol/L Anion Gap (3-11) POC Anion Gap (16-25) mmol/L POC BUN (7-18) mg/dl BUN (7-18) mg/dl Creatinine (0.6-1.4) mg/dl POC Creatinine (0.6-1.3) mg/dl Est Cr Clr Drug Dosing ml/min Est GFR ( Amer) ml/min Est GFR (Non-Af Amer) ml/min BUN/Creatinine Ratio (10-20) Glucose (70-99) mg/dl POC Glucose (other) (70-99) mg/dl Lactate (0.4-2.0) mmol/L Calcium (8.5-10.1) mg/dl POC Ioniz Calcium Sharon (1.12-1.32) mmol/l Magnesium (1.8-2.4) mg/dl Total Bilirubin (0.2-1) mg/dl AST (15-37) U/L ALT (12-78) Alkaline Phosphatase (45-117) U/L Troponin I (0-0.045) ng/ml Total Protein (6.4-8.2) gm/dl Albumin (3.4-5.0) gm/dl Globulin (2.5-4.0) gm/dl Albumin/Globulin Ratio (0.9-2) Procalcitonin (0-0.5) ng/ml ECG Data Interpretation: Sinus rhythm with rate of 74. OH QRS and QTc intervals within normal limits. No ST elevation or ST depression. [facility] Narrative 2020: The patient was evaluated in room B7. A complete history and physical exam was performed Cardiac monitoring: An order was placed for continuous cardiac monitoring. The monitor shows a rate of 70 with sinusrhythm Patient was found to be hypoxic on room air. Patient was placed on supplemental oxygen via nasal cannula which improved his oxygen saturation. Decadron 6 mg IV ordered for the patient. 2157: Vital signs stable on supplemental oxygen. Labs are within normal limits. CTA shows no PE and shows bilateral groundglass opacities. Patient be admitted to the [facility] team Dr. Beltran notified. Impression & Plan Hypoxia, Pneumonia due to COVID-19 virus Critical Care Time Critical Care Time: Yes Total Critical Care Time: 58 I have personally spent greater than 58 minutes of critical care time in the direct management of this patient. This includes bedside care, interpretation of diagnostic studies, and testing, discussion with consultants, patient, and family members, and other required patient management activities. This 58 minutes is in excess of all separately billable procedures. Discharge Plan Visit Data Chief Complaint: Shortness of Breath/Dyspnea Stated Complaint: COVID+, SOB, DIZZY Discharge Problem: Hypoxia, Pneumonia due to COVID-19 virus Patient Disposition: Admitted As Inpatient Forms Stand Alone Forms: My [facility] Prescriptions Prescriptions: No Action fluoxetine [Prozac] 40 mg capsule 40 mg PO QAM RF: 0 bupropion HCl 300 mg tablet extended release 24 hr 300 mg PO PM RF: 0 lansoprazole 30 mg capsule,delayed release(DR/EC) 30 mg PO BID RF: 0 carvedilol 6.25 mg tablet 6.25 mg PO BID RF: 0 ezetimibe 10 mg tablet 10 mg PO QAM RF: 0 hydrochlorothiazide 25 mg tablet 25 mg PO QAM RF: 0 amlodipine [Norvasc] 5 mg tablet 5 mg PO QAM RF: 0 gabapentin 400 mg capsule 400 mg PO TID RF: 0 cyanocobalamin (vitamin B-12) 1,000 mcg capsule 1,000 mcg PO HS RF: 0 ketoconazole 2 % shampoo 1 applic topical Q14D RF: 0 fluticasone propionate [Children's Flonase Allergy Rlf] 50 mcg/actuation spray,suspension 2 spray intranasal DAILY RF: 0 cholecalciferol (vitamin D3) 25 mcg (1,000 unit) capsule 25 mcg PO HS RF: 0 pseudoephedrine HCl [Sudafed 12 Hour] 120 mg tablet extended release 120 mg PO Q12H PRN (Reason: nasal congestion) RF: 0 hydrocodone bitartrate 10 mg capsule, oral only, ER 12hr 10 mg PO Q12H PRN (Reason: Pain) RF: 0 ibuprofen [Motrin IB] 200 mg tablet 200 mg PO Q6H PRN (Reason: Pain) RF: 0 Referrals Referrals: Fidel Dodge MD [Primary Care Provider] -
[2021-02-28 22:34] LABS: Influenza A virus by PCR Negative (Neg); Influenza B virus by PCR Negative (Neg); RSV by PCR Negative (Neg)
[2021-02-28] MEDS ORDERED: POTASSIUM CHLORIDE CRTAB 20 MEQ TABCR PO STA (22:48)
[2021-02-28] MEDS ORDERED: ALBUT/IPRATROP 3MG/0.5MG NEB 3 ML VIAL NEB STA (22:49)
[2021-02-28] MEDS ORDERED: carvediloL 6.25 MG TAB PO STA (22:52)
[2021-02-28] MEDS ORDERED: MAGNESIUM SULFATE / D5W 1 GM/100 ML BAG IV ONE (23:00)
[2021-02-28 23:26] LABS: NT Pro B Type Natriuretic Pept 227 pg/ml (0-900)
--- NOTE | 2021-03-01 00:49 | History & Physical Report ---
Date of Service March 01, 2021 Assessment & Plan (1) Acute hypoxemic respiratory failure: Plan: Secondary to severe COVID-19 pneumonia hypertension, slight elevated chronic back pain, outpatient neurosurgical consultation contemplated mood disorder/PTSD, at baseline Hypokalemia secondary to poor Po intake, home diuretic Rx past tobacco abuse Medical telemetry Supplemental O2 Decadron and Remdesivir for severe COVID-19 pneumonia. (Patient was counseled regarding potential adverse effects from Remdesivir therapy and provided with patient education sheet.) Pulmonary consult if without improvement. Replace potassium, hold home diuretic until patient euvolemic DVT prophylaxis per Lovenox subcu Full code Text document was generated using [employer] voice recognition software. It may contain grammatical or spelling errors. Kindly contact undersigned for clarification of any documentation item in question. History of Present Illness Chief Complaint: Worsening shortness of breath, COVID-19 infection Primary Care Provider: Fidel Dodge MD History obtained from patient and records. Medical history significant for hypertension, hyperlipidemia, chronic back pain, mood disorder/PTSD, past tobacco abuse. Patient noted dry cough symptoms and shortness of breath about 8 days ago. Not sure about sick contacts but patient got sick at the same time as patient. Has not received COVID-19 vaccination. Chest pain with coughing. Fever chills at home poor appetite. O2 sats 70s upon arrival at the ER. Decadron administered at the ER. 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 Allergies Allergy/AdvReac Type Severity Reaction Status Date / Time lisinopril Allergy Intermediate Angioedema Verified 02/28/21 21:58 pentazocine [From [place]] AdvReac Mild Vomiting Verified 02/28/21 21:58 Home Medications Medication Instructions Recorded Confirmed Type amlodipine 5 mg tablet (Norvasc) 5 mg PO QAM 01/14/21 02/28/21 History bupropion HCl 300 mg 24 hr tablet, 300 mg PO PM 01/14/21 02/28/21 History extended release carvedilol 6.25 mg tablet 6.25 mg PO BID 01/14/21 02/28/21 History cholecalciferol (vitamin D3) 25 25 mcg PO HS 01/14/21 02/28/21 History mcg (1,000 unit) capsule cyanocobalamin (vitamin B-12) 1,000 mcg PO HS 01/14/21 02/28/21 History 1,000 mcg capsule ezetimibe 10 mg tablet 10 mg PO QAM 01/14/21 02/28/21 History fluoxetine 40 mg capsule (Prozac) 40 mg PO QAM 01/14/21 02/28/21 History fluticasone propionate 50 2 spray INTRANASAL DAILY 01/14/21 02/28/21 History mcg/actuation nasal spray,suspension (Children's Flonase Allergy Relief) gabapentin 400 mg capsule 400 mg PO TID 01/14/21 02/28/21 History hydrochlorothiazide 25 mg tablet 25 mg PO QAM 01/14/21 02/28/21 History ketoconazole 2 % shampoo 1 applic TOPICAL Q14D 01/14/21 02/28/21 History lansoprazole 30 mg capsule,delayed 30 mg PO BID 01/14/21 02/28/21 History release hydrocodone bitartrate 10 mg 10 mg PO Q12H PRN 01/15/21 02/28/21 History capsule, oral only, extended rel 12 hr ibuprofen 200 mg tablet (Motrin IB) 200 mg PO Q6H PRN 01/15/21 02/28/21 History pseudoephedrine HCl 120 mg 120 mg PO Q12H PRN 01/15/21 02/28/21 History tablet,extended release (Sudafed 12 Hour) Past Med/Surg History Medical History Acoustic neuroma Left ear Anxiety 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 intermittent migraines Depression GERD (gastroesophageal reflux disease) Herniated disc Lumbar/cervical > partially limitation cervical ROM per pt Hyperlipidemia Hypertension Obesity Osteoarthritis PTSD (post-traumatic stress disorder) Hx PTSD (work-related) Sleep apnea No device Spinal stenosis Surgical History H/O colonoscopy H/O excision of dermoid cyst H/O knee surgery Left x1, right x2 H/O shoulder surgery Right x2 History of anesthesia reaction Difficulty with anesthesia induction with prior colonoscopies per pt History of carpal tunnel release R/L History of esophagogastroduodenoscopy (EGD) + dilation History of tooth extraction Hx laparoscopic cholecystectomy (02/01/21) Laparoscopic cholecystectomy Dr. Lorenzo 02/01/2021 Family History Mother Colorectal cancer Father Diabetes Hypertension Social History Smoking Status: Never smoker Second Hand Exposure: No; Hx Alcohol Use: Yes Alcohol type: beer and hard liquor Hx Substance Use: No Preferred Language: Libyan Communication Ability: Effective Rug Clipper Required: No Beliefs That Will Affect Care: None marital status: Current Living Situation: Spouse current occupational status: employed and retired How many Children do You have: 2 Other Information That Helps Us Care for You: No Feels Safe at Home: Yes Safety Concerns: Feels Safe At This Time during the past year weight has: remained stable Assistive Devices: Contacts Review of Systems Review of Systems: As per HPI, all 10 systems reviewed, occasional memory problems attributed to multiple concussions as per patient, back pain issues; all other ROS negative Physical Exam Physical Exam: GENERAL: Slightly uncomfortable, obese, pleasant, no respiratory distress SKIN: Normal color, warm HEENT: Alopecia, Otis palpebral conjunctivae, no ptosis, dry buccal mucosa, nasal cannula in place NECK : Supple, short neck, no tenderness CHEST : Decreased breath sounds, no tenderness HEART : RRR, no obvious murmurs ABDOMEN: Some distention, nontender EXTREMITIES : No LE swelling/tenderness, no other conspicuous deformities noted NEUROLOGIC : Coherent, no facial asymmetry, no other gross focality Results & Data Results & Data ([facility]) Vital Signs (Past 12 Hours) Vital Signs Temp Pulse Pulse Resp BP BP Pulse Ox 03/01/21 00:00 69 128/83 92 02/28/21 23:41 78 22 93 02/28/21 23:02 37.7 C H 02/28/21 23:00 70 150/103 H 92 02/28/21 20:53 73 22 174/96 H 94 02/28/21 20:52 93 02/28/21 20:16 92 02/28/21 20:09 37.2 C 82 22 134/79 87 L Laboratory Results Laboratory Results WBC 7.16 K/uL (4.8-10.8) 02/28/21 20:43 RBC 4.46 M/uL (4.7-6.1) L 02/28/21 20:43 Hgb 13.6 g/dL (14.0-18.0) L 02/28/21 20:43 POC Hgb 13.3 g/dl (14.0-18.0) L 02/28/21 20:46 Hct 38.3 % (42-52) L 02/28/21 20:43 POC Hct 39 % (42-52) L 02/28/21 20:46 MCV 85.9 fL (80-100) 02/28/21 20:43 MCH 30.5 pg (25-34) 02/28/21 20:43 MCHC 35.5 g/dL (32-36) 02/28/21 20:43 RDW Std Deviation 37.9 fL (36.4-46.3) 02/28/21 20:43 RDW Coeff of Natali 12.0 % (11.5-14.5) 02/28/21 20:43 Plt Count 197 K/uL (130-400) 02/28/21 20:43 MPV 9.6 fL (7.4-10.4) 02/28/21 20:43 Immature Gran % (Auto) 0.6 % 02/28/21 20:43 Neut % (Auto) 79.2 % 02/28/21 20:43 Lymph % (Auto) 9.2 % 02/28/21 20:43 Quay % (Auto) 11.0 % 02/28/21 20:43 Eos % (Auto) 0.0 % 02/28/21 20:43 Baso % (Auto) 0.0 % 02/28/21 20:43 Neut # (Auto) 5.67 K/uL (1.4-6.5) 02/28/21 20:43 Lymph # (Auto) 0.66 K/uL (1.2-3.4) L 02/28/21 20:43 Quay # (Auto) 0.79 K/uL (0.11-0.59) H 02/28/21 20:43 Eos # (Auto) 0.00 K/uL (0-0.5) 02/28/21 20:43 Baso # (Auto) 0.00 K/uL (0-0.2) 02/28/21 20:43 Immature Gran # (Auto) 0.04 K/uL (0.00-0.02) H 02/28/21 20:43 PT 9.9 Seconds (9.0-12.0) 02/28/21 20:43 INR 1.0 (0.9-1.1) 02/28/21 20:43 APTT 31.0 Seconds (21.0-31.0) 02/28/21 20:43 PTT Ratio 1.2 02/28/21 20:43 VBG pH 7.49 (7.36-7.41) H 02/28/21 20:58 VBG pCO2 33 mmHg (38-50) L 02/28/21 20:58 VBG pO2 38 mmHg 02/28/21 20:58 VBG HCO3 25 mmol/L 02/28/21 20:58 VBG O2 Saturation 73.5 % 02/28/21 20:58 VBG Base Excess 2.0 mEq/L 02/28/21 20:58 Barometric Pressure 733.9 mm/Hg 02/28/21 20:58 POC Sodium 132 mmol/L (135-144) L 02/28/21 20:46 Sodium 132 mmol/L (136-145) L 02/28/21 20:43 POC Potassium 3.2 mmol/L (3.3-5.0) L 02/28/21 20:46 Potassium 3.2 mmol/L (3.5-5.1) L 02/28/21 20:43 POC Chloride 94 mmol/L (101-112) L 02/28/21 20:46 Chloride 98 mmol/L (98-107) 02/28/21 20:43 Carbon Dioxide 25 mmol/L (21-32) 02/28/21 20:43 POC Total CO2 24 mmol/L (24-31) 02/28/21 20:46 Anion Gap 9.0 (3-11) 02/28/21 20:43 POC Anion Gap 17.0 mmol/L (16-25) 02/28/21 20:46 POC BUN 10 mg/dl (7-18) 02/28/21 20:46 BUN 10 mg/dl (7-18) 02/28/21 20:43 Creatinine 0.90 mg/dl (0.6-1.4) 02/28/21 20:43 POC Creatinine 0.8 mg/dl (0.6-1.3) 02/28/21 20:46 Est Cr Clr Drug Dosing 120.1 ml/min 02/28/21 20:43 Est GFR ( Amer) 108.7 ml/min 02/28/21 20:43 Est GFR (Non-Af Amer) 93.8 ml/min 02/28/21 20:43 BUN/Creatinine Ratio 11.5 (10-20) 02/28/21 20:43 Glucose 109 mg/dl (70-99) H 02/28/21 20:43 POC Glucose (other) 112 mg/dl (70-99) H 02/28/21 20:46 Lactate 1.2 mmol/L (0.4-2.0) 02/28/21 20:43 Calcium 7.5 mg/dl (8.5-10.1) L 02/28/21 20:43 POC Ioniz Calcium Sharon 1.07 mmol/l (1.12-1.32) L 02/28/21 20:46 Magnesium 1.8 mg/dl (1.8-2.4) 02/28/21 20:43 Total Bilirubin 0.7 mg/dl (0.2-1) 02/28/21 20:43 AST 42 U/L (15-37) H 02/28/21 20:43 ALT 33 (12-78) 02/28/21 20:43 Alkaline Phosphatase 77 U/L (45-117) 02/28/21 20:43 Troponin I < 0.015 ng/ml (0-0.045) 02/28/21 20:43 NT-Pro-B Natriuret Pep 227 pg/ml (0-900) 02/28/21 20:43 NT-Pro-B Natriuret Pep Cancelled 02/28/21 20:43 Total Protein 7.2 gm/dl (6.4-8.2) 02/28/21 20:43 Albumin 2.7 gm/dl (3.4-5.0) L 02/28/21 20:43 Globulin 4.5 gm/dl (2.5-4.0) H 02/28/21 20:43 Albumin/Globulin Ratio 0.6 (0.9-2) L 02/28/21 20:43 Procalcitonin < 0.05 ng/ml (0-0.5) 02/28/21 20:43 SARS-CoV-2 (PCR) POSITIVE (Negative) A* 02/28/21 20:43 Influenza Type A (PCR) Negative (Neg) 02/28/21 20:43 Influenza Type B (PCR) Negative (Neg) 02/28/21 20:43 RSV (RT-PCR) Negative (Neg) 02/28/21 20:[address] chest initial read: No pulmonaryembolism. Extensive airspace opacities consistent with Covid EKG as per my interpretation:Rate 75, NSR, normal axis, T wave abnormalities over inferior and septal leads
[2021-03-01] MEDS ORDERED: BENZONATATE 100 MG CAPSULE PO ONE (00:50)
[2021-03-01] MEDS ORDERED: guaiFENesin 600 MG TABCR PO STA (00:50)
[2021-03-01] MEDS ORDERED: POTASSIUM CHLORIDE 40 MEQ in SODIUM CHLORIDE 0.9% 1000ML 1,000 ML IV ONE (01:30)
[2021-03-01] MEDS ORDERED: MELATONIN 3 MG TAB PO ONE (01:30)
[2021-03-01] MEDS ORDERED: REMDESIVIR 200 MG in SODIUM CHLORIDE 0.9% 210 ML IV ONE (01:30)
[2021-03-01] MEDS ORDERED: BENZONATATE 100 MG CAPSULE PO PRN (03:04)
[2021-03-01] MEDS ORDERED: oxyCODONE HCL IR 5 MG TAB (IMMEDIATE RELEASE) PO PRN (03:04)
[2021-03-01] MEDS ORDERED: XOPENEX/ATROVENT 1.25mg/0.5MG NEB COMBO NEB PRN (03:04)
[2021-03-01] MEDS ORDERED: PROMETHAZINE HCL 12.5 MG in SODIUM CHLORIDE 0.9% 50 ML IV PRN (03:04)
[2021-03-01] MEDS: SODIUM CHLORIDE 0.9% 10ML FLUSH IV SCH ×2 (03:15→22:48)
[2021-03-01] MEDS: IPRATROPIUM BROMIDE NEB SOLN 0.02% 2.5 ML VIAL INH PRN (05:09)
[2021-03-01] MEDS: LEVALBUTEROL 1.25MG/0.5ML NEB INH PRN (05:09)
[2021-03-01 06:20] LABS: Hematocrit (blood only) 36.9 % (42-52); Hemoglobin 12.8 g/dL (14.0-18.0); Immature Granulocytes # (auto) 0.01 K/uL (0.00-0.02); Immature Granulocytes % (auto) 0.2 %; Lymphocytes # (auto) 0.56 K/uL (1.2-3.4); Lymphocytes % (auto) 10.4 %; Mean Corpuscular Hemoglobin 29.8 pg (25-34); Mean Corpuscular Hgb Conc 34.7 g/dL (32-36); Mean Platelet Volume 9.5 fL (7.4-10.4); Monocytes # (auto) 0.47 K/uL (0.11-0.59); Monocytes % (auto) 8.7 %; Neutrophils # (auto) 4.34 K/uL (1.4-6.5); Neutrophils % (auto) 80.7 %; Platelet Count 187 K/uL (130-400); RDW Coefficient of Variation 12.1 % (11.5-14.5); RDW Standard Deviation 38.2 fL (36.4-46.3); Red Blood Count 4.29 M/uL (4.7-6.1); White Blood Count 5.38 K/uL (4.8-10.8)
[2021-03-01 06:47] LABS: Albumin Level 2.4 gm/dl (3.4-5.0); Calcium 8.3 mg/dl (8.5-10.1); Creatinine Clr Calc Pharmacy 130.6 ml/min; Est GFR (African American) 112.4 ml/min; Potassium 3.6 mmol/L (3.5-5.1)
[2021-03-01 06:49] LABS: Albumin Globulin Ratio 0.6 (0.9-2); Bilirubin,Total 0.7 mg/dl (0.2-1); C Reactive Protein 14.9 mg/dl (0-0.29); Globulin 4.2 gm/dl (2.5-4.0); Total Protein 6.6 gm/dl (6.4-8.2)
[2021-03-01] MEDS: dexAMETHasone 6 MG in SYRINGE 0 ML IV SCH (06:56)
--- NOTE | 2021-03-01 07:22 | XRay Report ---
XR chest 1V portable CLINICAL HISTORY: low o2 COMPARISON STUDY: Chest CT and chest radiograph February 28, 2021. FINDINGS: Lung volumes are normal. There is no pneumothorax or pleural the effusion. Extensive bilate ral airspace opacities are again noted. Cardiomegaly is unchanged. There has been no significant stewart ge in appearance of the chest. IMPRESSION: No significant change in extensive bilateral airspace opacities suggestive of viral pneu monia. Radiographic follow-up to ensure resolution is recommended. ACT 112: Negative or not required by law. Electronically signed by: Joseph Hurley M.D. 03/01/2021 7:20 AM
--- NOTE | 2021-03-01 07:26 | XRay Report ---
XR chest 1V portable CLINICAL HISTORY: Shortness of breath. COMPARISON STUDY: Chest radiograph September 27, 2016. Chest CT performed earlier today. FINDINGS: Lung lung volumes are at the lower limits of normal. There is no pneumothorax or pleural ef fusion. Note is made of cardiomegaly. Extensive bilateral airspace opacities persist. IMPRESSION: 1. Extensive bilateral airspace opacities suggestive of viral pneumonia. 2. Cardiomegaly. ACT 112: Negative or not required by law. Electronically signed by: Joseph Hurley M.D. 03/01/2021 7:25 AM
--- NOTE | 2021-03-01 07:37 | CT Scan Report ---
CT angio chest PE protocol CLINICAL HISTORY: Shortness of breath. Covid positive. Evaluate for pulmonary embolus COMPARISON STUDY: Portable chest from 02/28/2021 CT DOSE: 613.06 mGy.cm TECHNIQUE: CT Angio of the chest was performed.followed by image post processing with coronal, and s agittal MIP reformats. * Contrast Volume: Optiray 320, 120 ml FINDINGS: Vasculature: There is homogeneous perfusion of the pulmonary vasculature bilaterally. No intraluminal filling defects or evidence for pulmonary embolus is seen. Airway: The airway is clear. No endobronchial lesion is identified. Lungs: Extensive groundglass opacities are present throughout both lungs characteristic of a viral ty pe pneumonitis and Covid 19 pneumonia. The lungs are otherwise clear of confluent alveolar opacities, air bronchograms or pulmonary nodules. Pleura: There is no evidence for pleural effusion. There is no evidence for pneumothorax. Mediastinum: There is no evidence for pathologic adenopathy. The heart size is within normal limits. The thoracic aorta is within normal limits. There is no evidence for pericardial effusion. Upper abdomen:The adrenal glands are normal bilaterally. Surgical clips are present from previous cho lecystectomy. Osseous structures: There is no acute osseous pathology. Impression: 1. No CTA evidence for pulmonary embolus. 2. Extensive groundglass opacities are present throughout both lungs characteristic of a viral type p neumonitis and Covid 19 pneumonia. ACT 112: Negative or not required by law. Electronically signed by: Jose Emerson M.D. 03/01/2021 7:36 AM
[2021-03-01 08:46] LABS: HCO3 ABG 24 mmol/L (19-24); Oxygen Saturation ABG 97.9 % (90-95); PCO2 ABG 33 mmHg (35-46); PO2 ABG 101 mmHg (80-95); pH ABG 7.48 (7.35-7.45)
[2021-03-01] MEDS ORDERED: dexAMETHasone 6 MG in SYRINGE 0 ML IV SCH (09:00)
[2021-03-01] MEDS ORDERED: ENOXAPARIN INJ 40 MG/0.4 ML SYR SQ SCH (09:00)
[2021-03-01 09:03] LABS: Allen Test Pos (Pos)
[2021-03-01] MEDS: PANTOprazole 40 MG TAB PO SCH ×2 (10:26→22:12)
[2021-03-01] MEDS: amLODIPine BESYLATE 5 MG TAB PO SCH (10:26)
[2021-03-01] MEDS: guaiFENesin 600 MG TABCR PO SCH ×2 (10:26→22:11)
[2021-03-01] MEDS: carvediloL 6.25 MG TAB PO SCH ×2 (10:27→22:11)
[2021-03-01] MEDS: FLUTICASONE PROPIONATE NA SPR 16 GM BTL SCH (10:28)
[2021-03-01] MEDS: FLUoxetine HCL 20 MG CAP PO SCH (10:28)
[2021-03-01] MEDS: GABAPENTIN 400 MG CAP PO SCH ×3 (10:28→22:11)
[2021-03-01] MEDS: EZETIMIBE 10 MG TABLET PO SCH (10:28)
[2021-03-01] MEDS: BENZONATATE 100 MG CAPSULE PO SCH ×2 (14:09→22:10)
[2021-03-01] MEDS: ALBUT/IPRATROP 3MG/0.5MG NEB 3 ML VIAL NEB SCH ×2 (14:47→18:08)
[2021-03-01] MEDS ORDERED: LORazepam 0.5 MG TAB PO ONE (15:42)
--- NOTE | 2021-03-01 15:54 | Electrocardiogram Report ---
Test Reason : Blood Pressure : / mmHG Vent. Rate : 074 BPM Atrial Rate : 074 BPM P-R Int : 116 ms QRS Dur : 084 ms QT Int : 378 ms P-R-T Axes : 007 -01 008 degrees QTc Int : 419 ms Normal sinus rhythm Nonspecific T wave abnormality Abnormal ECG When compared with ECG of 15-JAN-2021 10:57, Nonspecific T wave abnormality now evident in Inferior leads Confirmed by Bowen Woods ([id number]) on 03/01/2021 3:53:52 PM Referred By: REFERRED SELF Confirmed By:Bowen Woods
--- NOTE | 2021-03-01 16:38 | Hospitalist Progress Note ---
Date of Service March 01, 2021 Assessment & Plan (1) Acute hypoxemic respiratory failure: Plan: Acute respiratory failure with hypoxia Multifocal COVID pneumonia COVID Screen: Positive 02/28/21 --CTA:No CTA evidence for pulmonary embolus. Extensive groundglass opacities are present throughout both lungs characteristic of a viral type pneumonitis and Covid 19 pneumonia. Procalcitonin Negative CRP:14.9 Continue Remdesivir, Dexamethasone Isolation precautions--Airborne/Contact Consult Pulmonology if needed Encourage frequent Proning Lasix as needed Albuterol PRN Continue Supplemental Oxygen as needed DVT prophylaxis on Lovenox Monitor LFTs, renal function while on Remdesivir Hyponatremia Hypokalemia Likely due to dehydration Sodium 132 Replace electrolytes as needed Home diuretics on hold Monitor Hypertension Continue Amlodipine, Carvedilol Monitor Chronic back pain Patient plans to follow up with Neurosurgery as outpatient Mood disorder/PTSD at baseline DVT Px: Lovenox SQ Code Status Full code Admission and Anticipated Discharge Date Admission Date: March 01, 2021 Subjective Patient is seen and examined at bedside States having cough with expectoration Also states shortness of breath Minimal right upper quadrant discomfort from cough, recent surgery Denies any chest pain, dizziness, nausea, abdominal pain Offers no other complaints Review of Systems Review of Systems: All systems reviewed & are unremarkable except as noted in Subjective Physical Exam Physical Exam: Physical Exam: Vitals signs as noted above General Appearance:Moderately built and nourished, no apparent distress Head: normocephalic, Atraumatic Eyes: normal inspection, EOMI Neck: supple, Trachea midline Respiratory/Chest: Decreased breath sounds, CTA Cardiovascular: S1, S2, No murmur Abdomen/GI:Soft, Non tender, Bowel sounds present Extremities/Musculoskeletal:normal inspection, no edema Neurologic/Psych:AAOX3, grossly no focal neurological deficits Skin: normal color, warm Results & Data Results & Data ([facility]) Vital Signs (Past 12 Hours) Vital Signs Pulse Pulse Pulse Resp BP Pulse Ox Pulse Ox 03/01/21 15:00 60 03/01/21 14:48 62 19 90 03/01/21 12:00 64 20 126/71 91 03/01/21 11:21 58 L 18 91 03/01/21 08:00 60 23 136/86 99 03/01/21 06:38 58 L 22 93 03/01/21 05:10 60 18 93 03/01/21 04:45 92 12/06/21 04:44 79 L Laboratory Results Short CBC 02/28/21 03/01/21 Range/Units 20:43 05:50 WBC 7.16 5.38 (4.8-10.8) K/uL Hgb 13.6 L 12.8 L (14.0-18.0) g/dL Hct 38.3 L 36.9 L (42-52) % Plt Count 197 187 (130-400) K/uL BMP 02/28/21 03/01/21 20:43 05:50 Sodium 132 L 132 L Potassium 3.2 L 3.6 Chloride 98 101 Carbon Dioxide 25 26 BUN 10 12 Creatinine 0.90 0.83 Glucose 109 H 140 H Calcium 7.5 L 8.3 L Cardiac Enzymes 02/28/21 Range/Units 20:43 Troponin I < 0.015 (0-0.045) ng/ml Liver Function 02/28/21 03/01/21 Range/Units 20:43 05:50 Total Bilirubin 0.7 0.7 (0.2-1) mg/dl AST 42 H 36 (15-37) U/L ALT 33 31 (12-78) Alkaline Phosphatase 77 72 (45-117) U/L Albumin 2.7 L 2.4 L (3.4-5.0) gm/dl
[2021-03-01] MEDS: HYDROcodone/HOMATROPINE SYRUP 5MG/1.5MG 5ML UDP PO PRN (17:16)
[2021-03-01 18:27] LABS: SARS CoV2 RNA(COVID-19) InHosp POSITIVE (Negative)
[2021-03-01] MEDS ORDERED: BARICITINIB COMMUNICATION ONE (18:28)
--- NOTE | 2021-03-01 18:36 | Communication Note ---
Date of Service: March 01, 2021 Discussed with patient regarding risks and benefits of Baricitinib. Patient understand and agrees with Proceeding to use Baricitinib. Patient states that he did not received Monoclonal antibody therapy as outpatient. Low threshold to transfer to ICU.
[2021-03-01 19:45] LABS: Allen Test Pos (Pos); Base Excess ABG -0.3 mEq/L (-9-1.8); HCO3 ABG 23 mmol/L (19-24); Oxygen Saturation ABG 96.4 % (90-95); PCO2 ABG 32 mmHg (35-46); PO2 ABG 77 mmHg (80-95); pH ABG 7.47 (7.35-7.45)
[2021-03-01] MEDS ORDERED: REMDESIVIR 100 MG in SODIUM CHLORIDE 0.9% 230 ML IV SCH (20:00)
[2021-03-01] MEDS ORDERED: CYANOCOBALAMIN (B-12) 500 MCG TABLET PO SCH (21:00)
[2021-03-01] MEDS: ENOXAPARIN INJ 40 MG/0.4 ML SYR SQ SCH (22:09)
[2021-03-01] MEDS: buPROPion XL 300 MG TABCR PO SCH (22:10)
[2021-03-01] MEDS: BARICITINIB 2 MG TAB PO SCH (22:20)
[2021-03-02] MEDS: HYDROcodone/HOMATROPINE SYRUP 5MG/1.5MG 5ML UDP PO PRN ×2 (02:49→15:23)
[2021-03-02] MEDS: ALBUT/IPRATROP 3MG/0.5MG NEB 3 ML VIAL NEB SCH (07:30)
[2021-03-02] MEDS: EZETIMIBE 10 MG TABLET PO SCH (08:00)
[2021-03-02] MEDS: BENZONATATE 100 MG CAPSULE PO SCH ×3 (08:00→19:38)
[2021-03-02] MEDS: FLUoxetine HCL 20 MG CAP PO SCH (08:00)
[2021-03-02] MEDS: PANTOprazole 40 MG TAB PO SCH ×2 (08:00→19:40)
[2021-03-02] MEDS: GABAPENTIN 400 MG CAP PO SCH ×3 (08:01→19:47)
[2021-03-02] MEDS: guaiFENesin 600 MG TABCR PO SCH ×2 (08:01→19:40)
[2021-03-02] MEDS: amLODIPine BESYLATE 5 MG TAB PO SCH (08:01)
[2021-03-02] MEDS: ENOXAPARIN INJ 40 MG/0.4 ML SYR SQ SCH ×2 (08:02→19:39)
[2021-03-02] MEDS: dexAMETHasone 6 MG in SYRINGE 0 ML IV SCH (08:03)
[2021-03-02] MEDS: FLUTICASONE PROPIONATE NA SPR 16 GM BTL SCH (08:05)
[2021-03-02] MEDS: carvediloL 6.25 MG TAB PO SCH ×2 (08:14→19:47)
[2021-03-02 09:39] LABS: Albumin Level 2.4 gm/dl (3.4-5.0); BUN Creatinine Ratio 20.6 (10-20); Bilirubin Direct 0.2 mg/dl (0-0.2); Calcium 8.5 mg/dl (8.5-10.1); Creatinine Clr Calc Pharmacy 127.4 ml/min; Est GFR (African American) 110.3 ml/min; Est GFR (Non-African American) 95.1 ml/min; Magnesium 2.2 mg/dl (1.8-2.4)
[2021-03-02 09:42] LABS: Bilirubin,Total 0.7 mg/dl (0.2-1); Total Protein 6.7 gm/dl (6.4-8.2)
[2021-03-02 10:54] LABS: Hematocrit (blood only) 38.8 % (42-52); Hemoglobin 13.2 g/dL (14.0-18.0); Mean Corpuscular Hemoglobin 29.9 pg (25-34); Mean Platelet Volume 9.5 fL (7.4-10.4); Platelet Count 286 K/uL (130-400); RDW Coefficient of Variation 12.4 % (11.5-14.5); RDW Standard Deviation 40.1 fL (36.4-46.3); Red Blood Count 4.41 M/uL (4.7-6.1); White Blood Count 11.18 K/uL (4.8-10.8)
--- NOTE | 2021-03-02 14:53 | Pulmonary Consultation ---
Date of Consultation March 02, 2021 Assessment & Plan (1) ARDS (adult respiratory distress syndrome): (2) Acute hypoxemic respiratory failure: (3) Pneumonia due to COVID-19 virus: Impression: 60-year-old unvaccinated male now with COVID-19 pneumonia, progressive hypoxemic respiratory failure and diffuse pulmonary infiltrates. Recommendations: 1. Hypoxemic respiratory failure: Secondary to ARDS. Continue supplemental oxygen titrated to keep saturations at or above 88%. If he fails oxygen, would initiate CPAP. Does not need BiPAP unless he is intolerant of the pressure. Should he fail BiPAP, could consider intubation mechanical ventilation. The patient is unclear if he wishes to pursue these interventions. He is taking it under advisement. He understands that he will likely be in the hospital for quite some time. Recommend checking BNP. Procalcitonin was normal. Try to keep a euvolemic to slightly on the dry side 2. Covid pneumonitis: The patient is appropriate for dexamethasone 6 mg daily until hypoxemia resolves or he is discharged from the hospital. He met criteria for baricitinib and this has been initiated by the primary service. Recommend self proning is much as possible. 3. DVT prophylaxis per [employer] guidelines. While the patient has a high oxygen requirement currently. He appears very comfortable and in no respiratory distress. He is at risk for clinical deterioration. Pulmonary will sign off at this point time. Feel free to contact us should he worsen clinically and require intubation or mechanical ventilation. Recommend addressing CODE STATUS and end-of-life issues before that becomes imminent. History of Present Illness Attending Physician: Froy Conway MD History of Present Illness Asked by hospitalist to evaluate this patient with hypoxemic respiratory failure secondary to COVID-19 pneumonitis. History is obtained from reviewed electronic medical record as well as interview the patient bedside. The patient is a 60-year-old unvaccinated male with a questionable prior lung history presented to the emergency room 03/01/2021 with complaints of a day history of cough. He and his have not yet received the vaccine. He had fevers chills and poor appetite. His oxygen saturations were 70% in the emergency room. He was administered Decadron and admitted to the hospitalist service. His oxygenation worsened last night. He required high flow and then BiPAP. He was initiated on baricitinib. Pulmonary was consulted for additional management. When I assessed the patient in the room he is sitting up awake and alert. He is just eaten lunch. His oxygen saturations are in the high 80% range but he exhibits no distress and states he is breathing very comfortably. He does believe that the CPAP was helpful. He is unable to proning as he recently underwent cholecystectomy but he is trying to sleep in the lateral decubitus position. He is coughing but not expectorating phlegm. No chest pain or palpitations. No significant lower extremity edema. Allergies Allergy/AdvReac Type Severity Reaction Status Date / Time lisinopril Allergy Intermediate Angioedema Verified 02/28/21 21:58 pentazocine [From [facility]] AdvReac Mild Vomiting Verified 02/28/21 21:58 Home Medications Medication Instructions Recorded Confirmed Type amlodipine 5 mg tablet (Norvasc) 5 mg PO QAM 01/14/21 02/28/21 History bupropion HCl 300 mg 24 hr tablet, 300 mg PO PM 01/14/21 02/28/21 History extended release carvedilol 6.25 mg tablet 6.25 mg PO BID 01/14/21 02/28/21 History cholecalciferol (vitamin D3) 25 25 mcg PO HS 01/14/21 02/28/21 History mcg (1,000 unit) capsule cyanocobalamin (vitamin B-12) 1,000 mcg PO HS 01/14/21 02/28/21 History 1,000 mcg capsule ezetimibe 10 mg tablet 10 mg PO QAM 01/14/21 02/28/21 History fluoxetine 40 mg capsule (Prozac) 40 mg PO QAM 01/14/21 02/28/21 History fluticasone propionate 50 2 spray INTRANASAL DAILY 01/14/21 02/28/21 History mcg/actuation nasal spray,suspension (Children's Flonase Allergy Relief) gabapentin 400 mg capsule 400 mg PO TID 01/14/21 02/28/21 History hydrochlorothiazide 25 mg tablet 25 mg PO QAM 01/14/21 02/28/21 History ketoconazole 2 % shampoo 1 applic TOPICAL Q14D 01/14/21 02/28/21 History lansoprazole 30 mg capsule,delayed 30 mg PO BID 01/14/21 02/28/21 History release hydrocodone bitartrate 10 mg 10 mg PO Q12H PRN 10/22/21 12/05/21 History capsule, oral only, extended rel 12 hr ibuprofen 200 mg tablet (Motrin IB) 200 mg PO Q6H PRN 01/15/21 02/28/21 History pseudoephedrine HCl 120 mg 120 mg PO Q12H PRN 01/15/21 02/28/21 History tablet,extended release (Sudafed 12 Hour) Patient History Medical History Acoustic neuroma Left ear Anxiety 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 intermittent migraines Depression GERD (gastroesophageal reflux disease) Herniated disc Lumbar/cervical > partially limitation cervical ROM per pt Hyperlipidemia Hypertension Obesity Osteoarthritis PTSD (post-traumatic stress disorder) Hx PTSD (work-related) Sleep apnea No device Spinal stenosis Surgical History H/O colonoscopy H/O excision of dermoid cyst H/O knee surgery Left x1, right x2 H/O shoulder surgery Right x2 History of anesthesia reaction Difficulty with anesthesia induction with prior colonoscopies per pt History of carpal tunnel release R/L History of esophagogastroduodenoscopy (EGD) + dilation History of tooth extraction Hx laparoscopic cholecystectomy (02/01/21) Laparoscopic cholecystectomy Dr. Lorenzo 02/01/2021 Family History Mother Colorectal cancer Father Diabetes Hypertension Social History Smoking Status: Never smoker Second Hand Exposure: No; Hx Alcohol Use: Yes Alcohol type: beer and hard liquor Hx Substance Use: No Preferred Language: Algerian Communication Ability: Effective Measurement And Sensing Technician Required: No Beliefs That Will Affect Care: None marital status: Current Living Situation: Spouse current occupational status: employed and retired How many Children do You have: 2 Other Information That Helps Us Care for You: No Feels Safe at Home: Yes Safety Concerns: Feels Safe At This Time during the past year weight has: remained stable Assistive Devices: BiPap Review of Systems Review of Systems: Please refer to admission H&P. No additions or deletions Physical Exam Constitutional: WD/WN, vitals as above Neck: trachea midline, no thyromegaly Respiratory: normal respiratory effort; no respiratory distress, no labored breathing and not tachypneic Auscultation: + crackles and + wheezes Cardiovascular: RRR, no murmur, no edema Gastrointestinal (Abdomen): normal bowel sounds, soft, nontender, no hepatosplenomegaly Musculoskeletal: Extremities: extremities normal to inspection Skin: no rashes, warm and dry Neurologic: Nonfocal exam Lymphatic: no cervical lymphadenopathy Results & Data Results & Data ([facility]) Vital Signs (Past 12 Hours) Vital Signs Temp Pulse Pulse Pulse Resp BP Pulse Ox 03/02/21 14:20 70 20 90 03/02/21 11:03 60 16 132/60 90 03/02/21 10:50 60 20 94 03/02/21 10:45 03/02/21 09:39 55 L 03/02/21 07:36 36.7 C 57 L 22 123/92 03/02/21 07:32 57 L 24 89 L 03/02/21 07:30 55 L 26 H 89 L 03/02/21 03:20 36.6 C 57 L 20 121/76 94 Pulse Ox 03/02/21 14:20 03/02/21 11:03 03/02/21 10:50 03/02/21 10:45 95 03/02/21 09:39 03/02/21 07:36 03/02/21 07:32 03/02/21 07:30 03/02/21 03:20 Critical Care Results & Data Vital Signs (Past 12 Hours) Vital Signs Temp Pulse Pulse Pulse Resp BP Pulse Ox 03/02/21 14:20 70 20 90 03/02/21 11:03 60 16 132/60 90 03/02/21 10:50 60 20 94 03/02/21 10:45 03/02/21 09:39 55 L 03/02/21 07:36 36.7 C 57 L 22 123/92 03/02/21 07:32 57 L 24 89 L 03/02/21 07:30 55 L 26 H 89 L 03/02/21 03:20 36.6 C 57 L 20 121/76 94 Pulse Ox 03/02/21 14:20 03/02/21 11:03 03/02/21 10:50 03/02/21 10:45 95 03/02/21 09:39 03/02/21 07:36 03/02/21 07:32 03/02/21 07:30 03/02/21 03:20 Lab & Micro Results (Past 24 Hours) RBC 4.41 M/uL (4.7-6.1) L 03/02/21 WBC 11.18 K/uL (4.8-10.8) H 03/02/21 Hgb 13.2 g/dL (14.0-18.0) L 03/02/21 Hct 38.8 % (42-52) L 03/02/21 MCV 88.0 fL (80-100) 03/02/21 MCH 29.9 pg (25-34) 03/02/21 MCHC 34.0 g/dL (32-36) 03/02/21 RDW Standard Deviation 40.1 fL (36.4-46.3) 03/02/21 RDW Coefficient of Variation 12.4 % (11.5-14.5) 03/02/21 Plt Count 286 K/uL (130-400) 03/02/21 MPV 9.5 fL (7.4-10.4) 03/02/21 Na 137 mmol/L (136-145) 03/02/21 K 4.0 mmol/L (3.5-5.1) 03/02/21 Cl 103 mmol/L (98-107) 03/02/21 CO2 27 mmol/L (21-32) 03/02/21 Anion Gap 7.0 (3-11) 03/02/21 BUN 18 mg/dl (7-18) 03/02/21 Creatinine 0.87 mg/dl (0.6-1.4) 03/02/21 Estimated GFR ( Amer) 110.3 ml/min 03/02/21 Estimated GFR (Non-Af Amer) 95.1 ml/min 03/02/21 BUN/Creatinine Ratio 20.6 (10-20) H 03/02/21 Glu 124 mg/dl (70-99) H 03/02/21 Ca 8.5 mg/dl (8.5-10.1) 03/02/21 Total Bilirubin 0.7 mg/dl (0.2-1) 03/02/21 Direct Bilirubin 0.2 mg/dl (0-0.2) 03/02/21 AST 48 U/L (15-37) H 03/02/21 ALT 42 (12-78) 03/02/21 Alkaline Phosphatase 80 U/L (45-117) 03/02/21 TP 6.7 gm/dl (6.4-8.2) 03/02/21 Albumin 2.4 gm/dl (3.4-5.0) L 03/02/21 Mg 2.2 mg/dl (1.8-2.4) 03/02/21 08:52 03/02/21 Calcium Level 8.5 mg/dl (8.5-10.1) 03/02/21 08:52 03/02/21 Blood Gas Barometric Pressure 729.1 mm/Hg 03/01/21 18:47 03/01/21 Arterial Blood pH 7.47 (7.35-7.45) H 03/01/21 18:47 03/01/21 Arterial Blood Partial Pressure CO2 32 mmHg (35-46) L 03/01/21 18:47 03/01/21 Arterial Blood Partial Pressure O2 77 mmHg (80-95) L 03/01/21 18:47 03/01/21 Arterial Blood HCO3 23 mmol/L (19-24) 03/01/21 18:47 03/01/21 Arterial Blood Base Excess -0.3 mEq/L (-9-1.8) 03/01/21 18:47 03/01/21 Arterial Blood Oxygen Saturation 96.4 % (90-95) H 03/01/21 18:47 03/01/21 Blood Gas Oxygen Given 70% 03/01/21 18:47 03/01/21 Rafa Test Pos (Pos) 03/01/21 18:47 03/01/21 Blood Gas Barometric Pressure 729.1 mm/Hg 03/01/21 18:47 03/01/21 I & O Totals 24 Hours 03/01/21 03/02/21 03/03/21 06:59 06:59 06:59 Intake Total 1350 / 1350 3080 / 3080 Output Total 1751 / 1751 Balance 1350 / 1350 1329 / 1329 Cumulative 02/28/21 20:05 thru 03/02/21 14:00 Intake Total 4430 Output Total 1751 Balance 2679 RT Ventilator Mngmt (Last Documented) Ventilator Ordered Settings Respiratory Rate 20 03/02/21 14:20 Fraction of Inspired Oxygen 100 03/02/21 14:20 Ventilator - PT Measurements Respiratory Rate 20 PG Care Time/CCT Total # of Minutes Spent Total Time Spent with Patient: Total time spent is greater than 50% in coordination of care (as documented) at patient's floor/unit and/or counseling patient: Coding Level of Care Code 16697 Inpt Consult Level 4 Diagnoses ARDS (adult respiratory distress syndrome) J80 Acute hypoxemic respiratory failure J96.01 Pneumonia due to COVID-19 virus U07.1; J12.82
[2021-03-02] MEDS ORDERED: diphenhydrAMINE Capsule 25 MG CAP PO PRN (17:25)
--- NOTE | 2021-03-02 17:44 | Hospitalist Progress Note ---
Date of Service March 02, 2021 Assessment & Plan (1) Acute hypoxemic respiratory failure: Plan: Acute respiratory failure with hypoxia Multifocal COVID pneumonia COVID Screen: Positive 02/28/21 --CTA:No CTA evidence for pulmonary embolus. Extensive groundglass opacities are present throughout both lungs characteristic of a viral type pneumonitis and Covid 19 pneumonia. Procalcitonin Negative CRP:14.9 Continue Remdesivir, Dexamethasone Also started on Baricitinib Isolation precautions--Airborne/Contact Consult Pulmonology if needed Encourage frequent Proning Lasix as needed Albuterol PRN Continue Supplemental Oxygen as needed DVT prophylaxis on Lovenox Monitor LFTs, renal function while on Remdesivir Appreciate pulmonary input Currently on high flow oxygen Hyponatremia Hypokalemia Likely due to dehydration Sodium 132>137 Replace electrolytes as needed Home diuretics on hold Monitor Resume home diuretics as able Hypertension Continue Amlodipine, Carvedilol Monitor Chronic back pain Patient plans to follow up with Neurosurgery as outpatient Mood disorder/PTSD at baseline DVT Px: Lovenox SQ Code Status Full code Admission and Anticipated Discharge Date Admission Date: March 01, 2021 Subjective Patient is seen and examined at bedside Less dyspnea today Persistent intermittent cough Denies any chest pain, dizziness, nausea, abdominal pain Currently on high flow oxygen Review of Systems Review of Systems: All systems reviewed & are unremarkable except as noted in Subjective Physical Exam Physical Exam: Physical Exam: Vitals signs as noted above General Appearance:Moderately built and nourished, no apparent distress Head: normocephalic, Atraumatic Eyes: normal inspection, EOMI Neck: supple, Trachea midline Respiratory/Chest: Decreased breath sounds, CTA Cardiovascular: S1, S2, No murmur Abdomen/GI:Soft, Non tender, Bowel sounds present Extremities/Musculoskeletal:normal inspection, no edema Neurologic/Psych:AAOX3, grossly no focal neurological deficits Skin: normal color, warm Results & Data Results & Data ([facility]) Vital Signs (Past 12 Hours) Vital Signs Temp Pulse Pulse Resp BP Pulse Ox Pulse Ox 03/02/21 14:51 37 C 61 20 124/80 93 03/02/21 14:20 70 20 90 03/02/21 11:03 60 16 132/60 90 03/02/21 10:50 60 20 94 03/02/21 10:45 95 03/02/21 09:39 55 L 03/02/21 07:36 36.7 C 57 L 22 123/92 03/02/21 07:32 57 L 24 89 L 03/02/21 07:30 55 L 26 H 89 L Laboratory Results Short CBC 03/02/21 Range/Units 08:52 WBC 11.18 H (4.8-10.8) K/uL Hgb 13.2 L (14.0-18.0) g/dL Hct 38.8 L (42-52) % Plt Count 286 D (130-400) K/uL BMP 03/02/21 08:52 Sodium 137 Potassium 4.0 Chloride 103 Carbon Dioxide 27 BUN 18 Creatinine 0.87 Glucose 124 H Calcium 8.5 Liver Function 03/02/21 Range/Units 08:52 Total Bilirubin 0.7 (0.2-1) mg/dl Direct Bilirubin 0.2 (0-0.2) mg/dl AST 48 H (15-37) U/L ALT 42 (12-78) Alkaline Phosphatase 80 (45-117) U/L Albumin 2.4 L (3.4-5.0) gm/dl
[2021-03-02] MEDS: BARICITINIB 2 MG TAB PO SCH (19:38)
[2021-03-02] MEDS: buPROPion XL 300 MG TABCR PO SCH (19:39)
[2021-03-03] MEDS: HYDROcodone/HOMATROPINE SYRUP 5MG/1.5MG 5ML UDP PO PRN ×3 (01:18→17:51)
[2021-03-03 07:14] LABS: Hematocrit (blood only) 39.5 % (42-52); Hemoglobin 13.5 g/dL (14.0-18.0); Mean Corpuscular Hemoglobin 30.4 pg (25-34); Mean Corpuscular Hgb Conc 34.2 g/dL (32-36); Mean Platelet Volume 9.4 fL (7.4-10.4); Platelet Count 321 K/uL (130-400); RDW Coefficient of Variation 12.4 % (11.5-14.5); RDW Standard Deviation 40.6 fL (36.4-46.3); Red Blood Count 4.44 M/uL (4.7-6.1); White Blood Count 12.81 K/uL (4.8-10.8)
[2021-03-03] MEDS: dexAMETHasone 6 MG in SYRINGE 0 ML IV SCH (08:00)
[2021-03-03 08:01] LABS: Albumin Level 2.5 gm/dl (3.4-5.0); BUN Creatinine Ratio 20.8 (10-20); Calcium 8.6 mg/dl (8.5-10.1); Creatinine Clr Calc Pharmacy 139.8 ml/min; Est GFR (African American) 114.1 ml/min; Est GFR (Non-African American) 98.5 ml/min; Potassium 3.8 mmol/L (3.5-5.1)
[2021-03-03] MEDS: ENOXAPARIN INJ 40 MG/0.4 ML SYR SQ SCH ×2 (08:01→20:35)
[2021-03-03] MEDS: PANTOprazole 40 MG TAB PO SCH ×2 (08:02→20:34)
[2021-03-03] MEDS: amLODIPine BESYLATE 5 MG TAB PO SCH (08:03)
[2021-03-03] MEDS: guaiFENesin 600 MG TABCR PO SCH ×2 (08:03→20:34)
[2021-03-03] MEDS: EZETIMIBE 10 MG TABLET PO SCH (08:03)
[2021-03-03] MEDS: FLUoxetine HCL 20 MG CAP PO SCH (08:03)
[2021-03-03] MEDS: GABAPENTIN 400 MG CAP PO SCH ×3 (08:03→20:34)
[2021-03-03] MEDS: BENZONATATE 100 MG CAPSULE PO SCH ×3 (08:04→20:50)
[2021-03-03] MEDS: FLUTICASONE PROPIONATE NA SPR 16 GM BTL SCH (08:05)
[2021-03-03] MEDS: carvediloL 6.25 MG TAB PO SCH ×2 (08:05→20:34)
[2021-03-03 08:48] LABS: Bilirubin Direct 0.2 mg/dl (0-0.2); Bilirubin,Total 0.8 mg/dl (0.2-1); Total Protein 6.6 gm/dl (6.4-8.2)
--- NOTE | 2021-03-03 20:21 | Hospitalist Progress Note ---
Date of Service March 03, 2021 Assessment & Plan (1) Acute hypoxemic respiratory failure: Plan: Acute respiratory failure with hypoxia Multifocal COVID pneumonia COVID Screen: Positive 02/28/21 --CTA:No CTA evidence for pulmonary embolus. Extensive groundglass opacities are present throughout both lungs characteristic of a viral type pneumonitis and Covid 19 pneumonia. Procalcitonin Negative CRP:14.9 03/04/2021 Remains on high flow O2 Increased from 30 to 40 L, 100% FiO2 Had low-grade fever today Repeat chest x-ray pending We will add cefepime and doxycycline for possible bacterial pneumonia component Lasix 20 mg IV 1 dose Continue dexamethasone day #4 Renal function, AST/ALT okay, continue baricitinib day #4 Remdesivir discontinued by pulmonary service Continue proning, incentive spirometry, flutter valve DVT prophylaxis on Lovenox Monitor LFTs, renal function while on Remdesivir Mild indirect bilirubinemia, elevated alk phos Check liver ultrasound Hyponatremia Hypokalemia Likely due to dehydration Sodium 132>137 Stable Hypertension Continue Amlodipine, Carvedilol HCTZ held Chronic back pain Patient plans to follow up with Neurosurgery as outpatient Mood disorder/PTSD at baseline DVT Px: Lovenox SQ Code Status Full code plan of care discussed with patient and his in detail and at length all questions answered they are understanding, agreeable, comfortable with the plan of care Admission and Anticipated Discharge Date Admission Date: March 01, 2021 Subjective Follow-up for COVID-19 pneumonia, hypoxic respiratory failure, etc. Seen sitting up in bed, not in distress States he feels tired Breathing is about the same, somewhat worse compared to yesterday Still has some dry cough No chest pain No abdominal pain, nausea vomiting, fevers or chills No leg pain Appetite is fair No other symptoms Review of Systems Review of Systems: all noted and negative except for above Physical Exam Physical Exam: General- oriented x 3, not in distress, speaks in sentences with no effort or accessory muscle use Eyes- anicteric Neck- no JVD Lungs-positive mild rhonchi bilaterally, no wheezing Heart- normal rate, regular rhythm; no murmurs Abdomen- normal bowel sounds, nondistended, soft, nontender Extremities- no pretibial edema, no calf tenderness Neuro- alert, oriented x 3; no gross focal neurologic deficits Skin- warm & dry Results & Data Results & Data ([facility]) Vital Signs (Past 12 Hours) Vital Signs Temp Pulse Pulse Resp BP Pulse Ox Pulse Ox 03/03/21 19:02 36.9 C 66 18 139/80 87 L 03/03/21 18:06 67 22 94 03/03/21 15:43 37.0 C 60 21 136/84 93 03/03/21 15:00 62 03/03/21 14:50 84 22 88 L 03/03/21 11:52 36.9 C 62 25 H 113/81 92 03/03/21 10:41 63 22 97 03/03/21 10:02 56 L 03/03/21 10:00 91 all noted and reviewed including below
[2021-03-03] MEDS: buPROPion XL 300 MG TABCR PO SCH (20:34)
[2021-03-03] MEDS: BARICITINIB 2 MG TAB PO SCH (20:50)
[2021-03-03] MEDS: IPRATROPIUM BROMIDE NEB SOLN 0.02% 2.5 ML VIAL INH PRN (21:19)
[2021-03-03] MEDS: LEVALBUTEROL 1.25MG/0.5ML NEB INH PRN ×2 (21:19→21:20)
[2021-03-04] MEDS: HYDROcodone/HOMATROPINE SYRUP 5MG/1.5MG 5ML UDP PO PRN ×2 (03:19→22:50)
[2021-03-04] MEDS: BENZONATATE 100 MG CAPSULE PO SCH ×3 (09:23→19:30)
[2021-03-04] MEDS: carvediloL 6.25 MG TAB PO SCH ×2 (09:23→19:30)
[2021-03-04] MEDS: dexAMETHasone 6 MG in SYRINGE 0 ML IV SCH (09:23)
[2021-03-04] MEDS: FLUoxetine HCL 20 MG CAP PO SCH (09:24)
[2021-03-04] MEDS: guaiFENesin 600 MG TABCR PO SCH ×2 (09:25→19:29)
[2021-03-04] MEDS: GABAPENTIN 400 MG CAP PO SCH ×4 (09:25→19:37)
[2021-03-04] MEDS: EZETIMIBE 10 MG TABLET PO SCH (09:25)
[2021-03-04] MEDS: amLODIPine BESYLATE 5 MG TAB PO SCH (09:25)
[2021-03-04] MEDS: FLUTICASONE PROPIONATE NA SPR 16 GM BTL SCH (09:25)
[2021-03-04] MEDS: PANTOprazole 40 MG TAB PO SCH ×2 (09:26→19:30)
[2021-03-04] MEDS: ENOXAPARIN INJ 40 MG/0.4 ML SYR SQ SCH ×2 (09:30→22:50)
[2021-03-04 11:19] LABS: Albumin Level 2.6 gm/dl (3.4-5.0); BUN Creatinine Ratio 19.4 (10-20); Bilirubin Direct 0.5 mg/dl (0-0.2); Bilirubin,Total 1.8 mg/dl (0.2-1); Calcium 8.7 mg/dl (8.5-10.1); Creatinine Clr Calc Pharmacy 120.2 ml/min; Est GFR (African American) 105.9 ml/min; Est GFR (Non-African American) 91.4 ml/min; Total Protein 6.6 gm/dl (6.4-8.2)
[2021-03-04] MEDS: ACETAMINOPHEN 325 MG TAB PO PRN (16:00)
[2021-03-04] MEDS ORDERED: CONSULT PHARMACY STA (17:51)
[2021-03-04] MEDS ORDERED: FUROSEMIDE INJ 20 MG/2 ML VIAL IV ONE (18:00)
[2021-03-04 18:06] LABS: Basophils # (auto) 0.02 K/uL (0-0.2); Basophils % (auto) 0.1 %; Hematocrit (blood only) 39.1 % (42-52); Hemoglobin 13.5 g/dL (14.0-18.0); Immature Granulocytes # (auto) 0.23 K/uL (0.00-0.02); Immature Granulocytes % (auto) 1.6 %; Lymphocytes # (auto) 1.76 K/uL (1.2-3.4); Lymphocytes % (auto) 12.2 %; Mean Corpuscular Hemoglobin 30.5 pg (25-34); Mean Corpuscular Hgb Conc 34.5 g/dL (32-36); Mean Corpuscular Volume 88.5 fL (80-100); Mean Platelet Volume 9.6 fL (7.4-10.4); Monocytes # (auto) 0.22 K/uL (0.11-0.59); Monocytes % (auto) 1.5 %; Neutrophils # (auto) 12.22 K/uL (1.4-6.5); Neutrophils % (auto) 84.6 %; Platelet Count 193 K/uL (130-400); RDW Coefficient of Variation 12.3 % (11.5-14.5); RDW Standard Deviation 39.8 fL (36.4-46.3); Red Blood Count 4.42 M/uL (4.7-6.1); White Blood Count 14.45 K/uL (4.8-10.8)
[2021-03-04] MEDS: CEFEPIME 2,000 MG in SYRINGE 0 ML IV SCH (18:47)
--- NOTE | 2021-03-04 19:25 | XRay Report ---
XR chest 1V portable CLINICAL HISTORY: ff up covid pneumonia. Low oxygen saturation COMPARISON STUDY: 03/01/2021 TECHNIQUE: 1 view of the chest FINDINGS: Single frontal view of the chest demonstrates the cardiomediastinal silhouette to be within normal li mits. Compared to the previous examination, extensive interstitial and alveolar opacities are again s een bilaterally and essentially unchanged. There is a decreased inspiratory effort on the current leonila dy with crowding the bronchovascular markings at the lung bases. There is no evidence for pleural eff usion. There is no evidence for vascular congestion. There is no acute osseous pathology. IMPRESSION: Decreased inspiration with extensive interstitial and alveolar opacities again seen bilat erally characteristic of Covid pneumonia. ACT 112: Negative or not required by law. Electronically signed by: Jose Emerson M.D. 03/04/2021 7:23 PM
[2021-03-04] MEDS: buPROPion XL 300 MG TABCR PO SCH (19:30)
[2021-03-04] MEDS: BARICITINIB 2 MG TAB PO SCH (19:31)
[2021-03-04] MEDS ORDERED: DOXYCYCLINE HYCLATE 100 MG CAP PO SCH (21:00)
--- NOTE | 2021-03-04 21:54 | Ultrasound Report ---
US liver CLINICAL HISTORY: indirect bilirubinemia, elevated alk phos. COMPARISON: None. TECHNIQUE: Multiple grayscale and color images of the right upper quadrant of the abdomen. FINDINGS: The study is limited by overlying bowel gas. Pancreas: Valgus cannot be visualized. Liver: The liver is homogeneous in echogenicity There is no evidence for a focal mass. There is no in trahepatic biliary duct dilatation. There is hepatopedal flow within the main portal vein. There is e vidence for small cysts of the liver adjacent to this site measuring 1.3 cm. Gallbladder: The patient is status post cholecystectomy. Common Bile Duct: (CBD): It is normal in size measuring 3 mm. Inferior Vena Cava (IVC): The imaged IVC is patent. Right kidney: There is no evidence for hydronephrosis, calculus or gross renal mass. The kidney is n ormal in size. IMPRESSION: 1. Limited study with nonvisualization of the pancreas. 2. The liver is normal in size and echogenicity. Incidental note is made of a small cyst within the liver. ACT 112: Negative or not required by law. Electronically signed by: Jose Emerson M.D. 03/04/2021 9:52 PM
[2021-03-04] MEDS: DOXYCYCLINE SUSP 25 MG/5 ML 60ML PO SCH (22:50)
[2021-03-05] MEDS: CEFEPIME 2,000 MG in SYRINGE 0 ML IV SCH ×3 (01:52→18:11)
[2021-03-05 07:59] LABS: Basophils # (auto) 0.02 K/uL (0-0.2); Basophils % (auto) 0.1 %; Eosinophils # (auto) 0.01 K/uL (0-0.5); Eosinophils % (auto) 0.1 %; Hematocrit (blood only) 36.6 % (42-52); Hemoglobin 12.4 g/dL (14.0-18.0); Immature Granulocytes % (auto) 3.7 %; Lymphocytes # (auto) 1.14 K/uL (1.2-3.4); Lymphocytes % (auto) 8.4 %; Mean Corpuscular Hemoglobin 29.9 pg (25-34); Mean Corpuscular Hgb Conc 33.9 g/dL (32-36); Mean Corpuscular Volume 88.2 fL (80-100); Mean Platelet Volume 10.3 fL (7.4-10.4); Monocytes # (auto) 1.24 K/uL (0.11-0.59); Monocytes % (auto) 9.2 %; Neutrophils # (auto) 10.63 K/uL (1.4-6.5); Neutrophils % (auto) 78.5 %; Platelet Count 168 K/uL (130-400); RDW Coefficient of Variation 12.4 % (11.5-14.5); Red Blood Count 4.15 M/uL (4.7-6.1); White Blood Count 13.54 K/uL (4.8-10.8)
[2021-03-05 08:37] LABS: Albumin Level 2.3 gm/dl (3.4-5.0); BUN Creatinine Ratio 22.7 (10-20); Calcium 8.2 mg/dl (8.5-10.1); Creatinine Clr Calc Pharmacy 134.9 ml/min; Est GFR (African American) 113.5 ml/min; Potassium 3.8 mmol/L (3.5-5.1)
[2021-03-05 08:39] LABS: Bilirubin Direct 0.3 mg/dl (0-0.2); Bilirubin,Total 1.4 mg/dl (0.2-1); Total Protein 5.9 gm/dl (6.4-8.2)
[2021-03-05] MEDS: PANTOprazole 40 MG TAB PO SCH ×2 (09:07→20:34)
[2021-03-05] MEDS: BENZONATATE 100 MG CAPSULE PO SCH ×3 (09:07→20:30)
[2021-03-05] MEDS: EZETIMIBE 10 MG TABLET PO SCH (09:07)
[2021-03-05] MEDS: FLUoxetine HCL 20 MG CAP PO SCH (09:07)
[2021-03-05] MEDS: amLODIPine BESYLATE 5 MG TAB PO SCH (09:07)
[2021-03-05] MEDS: DOXYCYCLINE SUSP 25 MG/5 ML 60ML PO SCH ×2 (09:08→20:32)
[2021-03-05] MEDS: carvediloL 6.25 MG TAB PO SCH ×2 (09:08→20:32)
[2021-03-05] MEDS: FLUTICASONE PROPIONATE NA SPR 16 GM BTL SCH (09:08)
[2021-03-05] MEDS: ENOXAPARIN INJ 40 MG/0.4 ML SYR SQ SCH ×2 (09:08→20:33)
[2021-03-05] MEDS: dexAMETHasone 6 MG in SYRINGE 0 ML IV SCH (09:08)
[2021-03-05] MEDS: guaiFENesin 600 MG TABCR PO SCH ×2 (09:09→20:34)
[2021-03-05] MEDS: GABAPENTIN 400 MG CAP PO SCH ×3 (09:09→20:34)
[2021-03-05] MEDS ORDERED: FUROSEMIDE INJ 20 MG/2 ML VIAL IV ONE (10:11)
--- NOTE | 2021-03-05 17:18 | Hospitalist Progress Note ---
Date of Service March 05, 2021 Assessment & Plan (1) Acute hypoxemic respiratory failure: Plan: Acute respiratory failure with hypoxia Multifocal COVID pneumonia COVID Screen: Positive 02/28/21 --CTA:No CTA evidence for pulmonary embolus. Extensive groundglass opacities are present throughout both lungs characteristic of a viral type pneumonitis and Covid 19 pneumonia. Procalcitonin Negative CRP:14.9 03/05/21 Remains on high flow O2 100%, 4 L Intermittently on BiPAP while sleeping Appears slightly clinically improved compared to yesterday Continue dexamethasone day #5, baricitinib day #5 Continue cefepime and doxycycline day #2 Lasix 20 g IV given this morning Renal function, AST/ALT okay Remdesivir discontinued by pulmonary service Continue proning, incentive spirometry, flutter valve DVT prophylaxis on Lovenox Mild indirect bilirubinemia, elevated alk phos Improving Liver ultrasound:The liver is normal in size and echogenicity. Incidental note is made of a small cyst within the liver. Hyponatremia Hypokalemia Likely due to dehydration Sodium 132>137 Stable Hypertension Continue Amlodipine, Carvedilol, HCTZ Chronic back pain Patient plans to follow up with Neurosurgery as outpatient Mood disorder/PTSD at baseline DVT Px: Lovenox SQ Code Status Full code plan of care discussed with patient and his in detail and at length all questions answered they are understanding, agreeable, comfortable with the plan of care Admission and Anticipated Discharge Date Admission Date: March 01, 2021 Subjective Follow-up for COVID-19 pneumonia with acute hypoxic respiratory failure, etc. Seen sitting up in chair, not in distress On BiPAP States he feels slightly better today Breathing slightly better No chest pain No leg pain No other symptoms Review of Systems Review of Systems: all noted and negative except for above Physical Exam Physical Exam: General- oriented x 3, not in distress, speaks in sentences wi th no effort or accessory muscle use Eyes- anicteric Neck- no JVD Lungs- mild rhonchi bilaterally, better air entry bilaterally No wheezing Heart- normal rate, regular rhythm; no murmurs Abdomen- normal bowel sounds, nondistended, soft, nontender Extremities- no pretibial edema, no calf tenderness Neuro- alert, oriented x 3; no gross focal neurologic deficits Skin- warm & dry Results & Data Results & Data ([facility]) Vital Signs (Past 12 Hours) Vital Signs Temp Pulse Pulse Resp BP Pulse Ox Pulse Ox 03/05/21 15:47 36.4 C L 66 21 129/65 98 03/05/21 14:19 58 L 27 H 92 03/05/21 11:19 81 20 88 L 03/05/21 10:00 100 03/05/21 07:45 58 L 03/05/21 07:09 36.9 C 59 L 18 125/64 96 03/05/21 06:54 58 L 24 93 all noted and reviewed including below
[2021-03-05] MEDS: BARICITINIB 2 MG TAB PO SCH (20:30)
[2021-03-05] MEDS: buPROPion XL 300 MG TABCR PO SCH (20:33)
[2021-03-06] MEDS ORDERED: ENOXAPARIN INJ 60 MG/0.6 ML SYR SQ ONE (00:45)
[2021-03-06] MEDS: CEFEPIME 2,000 MG in SYRINGE 0 ML IV SCH ×3 (01:55→17:13)
[2021-03-06] MEDS ORDERED: ENOXAPARIN INJ 120 MG/0.8 ML SYR SQ SCH (05:00)
[2021-03-06 06:23] LABS: Basophils # (auto) 0.04 K/uL (0-0.2); Basophils % (auto) 0.3 %; Eosinophils # (auto) 0.03 K/uL (0-0.5); Eosinophils % (auto) 0.2 %; Hematocrit (blood only) 36.4 % (42-52); Hemoglobin 12.3 g/dL (14.0-18.0); Immature Granulocytes # (auto) 0.66 K/uL (0.00-0.02); Immature Granulocytes % (auto) 4.2 %; Lymphocytes # (auto) 1.35 K/uL (1.2-3.4); Lymphocytes % (auto) 8.6 %; Mean Corpuscular Hemoglobin 29.9 pg (25-34); Mean Corpuscular Hgb Conc 33.8 g/dL (32-36); Mean Corpuscular Volume 88.6 fL (80-100); Mean Platelet Volume 9.8 fL (7.4-10.4); Monocytes # (auto) 1.97 K/uL (0.11-0.59); Monocytes % (auto) 12.5 %; Neutrophils # (auto) 11.66 K/uL (1.4-6.5); Neutrophils % (auto) 74.2 %; Platelet Count 246 K/uL (130-400); RDW Coefficient of Variation 12.4 % (11.5-14.5); Red Blood Count 4.11 M/uL (4.7-6.1); White Blood Count 15.71 K/uL (4.8-10.8)
[2021-03-06 06:54] LABS: Albumin Level 2.2 gm/dl (3.4-5.0); Calcium 8.4 mg/dl (8.5-10.1); Creatinine Clr Calc Pharmacy 124.9 ml/min; Est GFR (African American) 110.3 ml/min; Est GFR (Non-African American) 95.1 ml/min; Potassium 3.9 mmol/L (3.5-5.1)
[2021-03-06 06:59] LABS: Bilirubin Direct 0.3 mg/dl (0-0.2); C Reactive Protein 9.4 mg/dl (0-0.29); Total Protein 6.1 gm/dl (6.4-8.2)
--- NOTE | 2021-03-06 08:10 | Ultrasound Report ---
US venous doppler LE RT CLINICAL HISTORY: right calf pain and swelling. covid. dvt? COMPARISON: None available at the time of this dictation. TECHNIQUE: Right lower extremity real-time compression venous ultrasound with Color Doppler imaging. Utilizing real-time ultrasonic imaging multiple real time high-resolution ultrasonic images with comp ression and noncompression maneuvers of the deep venous system in addition to color doppler imaging w ere performed from the common femoral vein through the proximal calf veins. FINDINGS: There is evidence for thrombus within the posterior tibial vein and peroneal vein. However, does not extend more proximally into the popliteal vein. The common femoral and superficial femoral veins are also patent. Impression: Deep vein is thrombosis within the posterior tibial and peroneal veins of the calf. ACT 112: Negative or not required by law. Electronically signed by: Jose Emerson M.D. 03/06/2021 8:08 AM
[2021-03-06] MEDS: BENZONATATE 100 MG CAPSULE PO SCH ×3 (09:43→20:20)
[2021-03-06] MEDS: PANTOprazole 40 MG TAB PO SCH ×2 (09:43→20:22)
[2021-03-06] MEDS: ENOXAPARIN INJ 120 MG/0.8 ML SYR SQ SCH ×2 (09:43→20:22)
[2021-03-06] MEDS: dexAMETHasone 6 MG in SYRINGE 0 ML IV SCH (09:43)
[2021-03-06] MEDS: guaiFENesin 600 MG TABCR PO SCH ×2 (09:43→20:23)
[2021-03-06] MEDS: carvediloL 6.25 MG TAB PO SCH ×2 (09:44→20:21)
[2021-03-06] MEDS: DOXYCYCLINE SUSP 25 MG/5 ML 60ML PO SCH ×2 (09:44→20:23)
[2021-03-06] MEDS: FLUTICASONE PROPIONATE NA SPR 16 GM BTL SCH (09:44)
[2021-03-06] MEDS: amLODIPine BESYLATE 5 MG TAB PO SCH (09:45)
[2021-03-06] MEDS: EZETIMIBE 10 MG TABLET PO SCH (09:45)
[2021-03-06] MEDS: GABAPENTIN 400 MG CAP PO SCH ×3 (09:45→20:20)
[2021-03-06] MEDS: FLUoxetine HCL 20 MG CAP PO SCH (09:45)
--- NOTE | 2021-03-06 18:45 | Hospitalist Progress Note ---
Date of Service March 06, 2021 Assessment & Plan (1) Acute hypoxemic respiratory failure: Plan: Acute respiratory failure with hypoxia Multifocal COVID pneumonia COVID Screen: Positive 02/28/21 --CTA:No CTA evidence for pulmonary embolus. Extensive groundglass opacities are present throughout both lungs characteristic of a viral type pneumonitis and Covid 19 pneumonia. Procalcitonin Negative CRP:14.9 03/06/2021 Subjectively feels better today Was able to decrease high flow O2 from 100% to 75% Intermittently on BiPAP while sleeping Continue dexamethasone day #6/10 baricitinib day #6--> discussed with skull grinder Dr. Mcmanus, recommend to discontinue for now in light of acute DVTs Continue cefepime and doxycycline day #3 Lasix 20 g IV tomorrow Renal function, AST/ALT good Remdesivir discontinued by pulmonary service Continue proning, incentive spirometry, flutter valve Deep venous thrombosis posterior tibial and peroneal veins In the setting of COVID-19 infection, baricitinib use Patient reports family history of blood clots Lovenox prophylactic dose changed to therapeutic dose 120 mg subcu twice daily Consider NOACs on discharge Mild indirect bilirubinemia, elevated alk phos Resolved Liver ultrasound:The liver is normal in size and echogenicity. Incidental note is made of a small cyst within the liver. Hyponatremia Hypokalemia Likely due to dehydration Sodium 132>137 Stable Hypertension Continue Amlodipine, Carvedilol, HCTZ Chronic back pain Patient plans to follow up with Neurosurgery as outpatient Mood disorder/PTSD at baseline DVT Px: Lovenox SQ Code Status Full code plan of care discussed with patient and his in detail and at length all questions answered they are understanding, agreeable, comfortable with the plan of care Admission and Anticipated Discharge Date Admission Date: March 01, 2021 Subjective Follow-up for acute hypoxic respiratory failure, COVID-19 pneumonia, etc. Seen sitting up in edge of the bed, on high flow oxygen 75% States he feels improved today compared to yesterday Breathing seems to be easier today No chest pain, minimal cough Reports mild discomfort right lower leg Appetite improving No other symptoms Review of Systems Review of Systems: all noted and negative except for above Physical Exam Physical Exam: General- oriented x 3, not in distress, speaks in sentences with no effort or accessory muscle use Eyes- anicteric Neck- no JVD Lungs-bilateral bibasilar crackles, no wheezing Heart- normal rate, regular rhythm; no murmurs Abdomen- normal bowel sounds, nondistended, soft, nontender Extremities-right lower extremity: Mild edema, warmth, no tenderness Left lower extremity: Trace edema No warmth or tenderness Neuro- alert, oriented x 3; no gross focal neurologic deficits Skin- warm & dry Results & Data Results & Data ([facility]) Vital Signs (Past 12 Hours) Vital Signs Temp Pulse Pulse Resp BP Pulse Ox Pulse Ox 03/06/21 16:11 36.8 C 68 18 136/82 92 03/06/21 14:56 81 24 94 03/06/21 13:48 18 93 03/06/21 12:46 36.8 C 64 20 125/78 95 03/06/21 10:42 87 26 H 94 03/06/21 10:00 85 L 03/06/21 08:08 36.8 C 68 22 129/76 92 03/06/21 07:49 89 24 96 03/06/21 07:48 89 24 99 all noted and reviewed including below
[2021-03-06] MEDS: hydroCHLOROthiazide 25 MG TAB PO SCH (20:19)
[2021-03-06] MEDS: buPROPion XL 300 MG TABCR PO SCH (20:22)
[2021-03-06] MEDS: MELATONIN 3 MG TAB PO PRN (20:26)
[2021-03-07] MEDS: CEFEPIME 2,000 MG in SYRINGE 0 ML IV SCH ×3 (03:11→17:13)
[2021-03-07 08:06] LABS: Basophils # (auto) 0.04 K/uL (0-0.2); Basophils % (auto) 0.2 %; Eosinophils # (auto) 0.13 K/uL (0-0.5); Eosinophils % (auto) 0.7 %; Hematocrit (blood only) 36.5 % (42-52); Hemoglobin 12.4 g/dL (14.0-18.0); Immature Granulocytes # (auto) 0.86 K/uL (0.00-0.02); Immature Granulocytes % (auto) 4.8 %; Lymphocytes % (auto) 7.9 %; Mean Corpuscular Hemoglobin 29.9 pg (25-34); Mean Platelet Volume 10.4 fL (7.4-10.4); Monocytes # (auto) 1.66 K/uL (0.11-0.59); Monocytes % (auto) 9.3 %; Neutrophils # (auto) 13.72 K/uL (1.4-6.5); Neutrophils % (auto) 77.1 %; Platelet Count 328 K/uL (130-400); RDW Coefficient of Variation 12.4 % (11.5-14.5); RDW Standard Deviation 40.1 fL (36.4-46.3); Red Blood Count 4.15 M/uL (4.7-6.1); White Blood Count 17.81 K/uL (4.8-10.8)
[2021-03-07 08:41] LABS: Albumin Level 2.2 gm/dl (3.4-5.0); BUN Creatinine Ratio 26.2 (10-20); Bilirubin Direct 0.2 mg/dl (0-0.2); C Reactive Protein 4.93 mg/dl (0-0.29); Calcium 8.4 mg/dl (8.5-10.1); Creatinine Clr Calc Pharmacy 134.3 ml/min; Est GFR (African American) 113.5 ml/min; Potassium 4.1 mmol/L (3.5-5.1)
[2021-03-07 08:45] LABS: Bilirubin,Total 0.8 mg/dl (0.2-1)
[2021-03-07] MEDS ORDERED: FUROSEMIDE INJ 20 MG/2 ML VIAL IV ONE (09:15)
[2021-03-07] MEDS: GABAPENTIN 400 MG CAP PO SCH ×3 (09:28→20:49)
[2021-03-07] MEDS: BENZONATATE 100 MG CAPSULE PO SCH ×3 (09:32→20:48)
[2021-03-07] MEDS: FLUTICASONE PROPIONATE NA SPR 16 GM BTL SCH (09:32)
[2021-03-07] MEDS: dexAMETHasone 6 MG in SYRINGE 0 ML IV SCH (09:32)
[2021-03-07] MEDS: DOXYCYCLINE SUSP 25 MG/5 ML 60ML PO SCH ×2 (09:33→20:46)
[2021-03-07] MEDS: EZETIMIBE 10 MG TABLET PO SCH (09:33)
[2021-03-07] MEDS: carvediloL 6.25 MG TAB PO SCH ×2 (09:33→20:47)
[2021-03-07] MEDS: ENOXAPARIN INJ 120 MG/0.8 ML SYR SQ SCH ×2 (09:33→20:47)
[2021-03-07] MEDS: amLODIPine BESYLATE 5 MG TAB PO SCH (09:33)
[2021-03-07] MEDS: FLUoxetine HCL 20 MG CAP PO SCH (09:34)
[2021-03-07] MEDS: hydroCHLOROthiazide 25 MG TAB PO SCH (09:34)
[2021-03-07] MEDS: PANTOprazole 40 MG TAB PO SCH ×2 (09:34→20:48)
[2021-03-07] MEDS: guaiFENesin 600 MG TABCR PO SCH ×2 (09:35→20:48)
--- NOTE | 2021-03-07 11:15 | Hospitalist Progress Note ---
Date of Service March 07, 2021 Assessment & Plan (1) Acute hypoxemic respiratory failure: Plan: Acute respiratory failure with hypoxia Multifocal COVID pneumonia COVID Screen: Positive 02/28/21 --CTA:No CTA evidence for pulmonary embolus. Extensive groundglass opacities are present throughout both lungs characteristic of a viral type pneumonitis and Covid 19 pneumonia. Procalcitonin Negative CRP:14.9 03/07/2021 Subjectively feels about the same CRP down from 13 to 4 Was able to decrease high flow O2 from 100% to 75%--> remains on 60-80% Intermittently on BiPAP while sleeping Continue dexamethasone day #7/ baricitinib day #6--> discussed with professor of surgery Dr. Mcmanus, recommend to discontinue for now in light of acute DVTs (03/06/21) Continue cefepime and doxycycline day #4/7 Lasix 20 g IV Renal function, AST/ALT good Remdesivir discontinued by pulmonary service Continue proning, incentive spirometry, flutter valve Deep venous thrombosis posterior tibial and peroneal veins In the setting of COVID-19 infection, baricitinib use Patient reports family history of blood clots Lovenox prophylactic dose changed to therapeutic dose 120 mg subcu twice daily Consider NOACs on discharge Mild indirect bilirubinemia, elevated alk phos Resolved Liver ultrasound:The liver is normal in size and echogenicity. Incidental note is made of a small cyst within the liver. Hyponatremia Hypokalemia Likely due to dehydration Sodium 132>137 Stable Hypertension Continue Amlodipine, Carvedilol, HCTZ Chronic back pain Patient plans to follow up with Neurosurgery as outpatient Mood disorder/PTSD at baseline DVT Px: Lovenox SQ Code Status Full code plan of care discussed with patient and his in detail and at length all questions answered they are understanding, agreeable, comfortable with the plan of care Admission and Anticipated Discharge Date Admission Date: March 01, 2021 Subjective ff up for acute respiratory failure, covid 19 pneumonia, etc. seen sitting up at the edge of the bed on high flo2 o2, 80% Fi02 not in distress, conversant, very pleasant states he feels about the same as yesterday breathing is about the same has intermittent dry cough no chest pain no palpitations, dizziness, nausea/vomiting no leg pain no other symptoms Review of Systems Review of Systems: all noted and negative except for above Physical Exam Physical Exam: General- oriented x 3, not in distress, speaks in sentences with no effort or accessory muscle use Eyes- anicteric Neck- no JVD Lungs- mild rales at the bases, no wheezing good air entry BL Heart- normal rate, regular rhythm; no murmurs Abdomen- normal bowel sounds, nondistended, soft, nontender Extremities- RLE mild edema, no erythema/warmth/tenderness LLE essentially normal Neuro- alert, oriented x 3; no gross focal neurologic deficits Skin- warm & dry Results & Data Results & Data ([facility]) Vital Signs (Past 12 Hours) Vital Signs Temp Pulse Pulse Resp BP Pulse Ox Pulse Ox 03/07/21 10:00 91 03/07/21 08:05 36.9 C 63 22 138/77 90 03/07/21 07:43 59 L 03/07/21 03:36 36.6 C 70 20 136/80 96 03/07/21 03:09 62 23 95 all noted and reviewed including below
[2021-03-07] MEDS: buPROPion XL 300 MG TABCR PO SCH (20:49)
[2021-03-08] MEDS: CEFEPIME 2,000 MG in SYRINGE 0 ML IV SCH ×3 (03:13→17:00)
[2021-03-08 07:18] LABS: Hematocrit (blood only) 37.8 % (42-52); Hemoglobin 12.8 g/dL (14.0-18.0); Mean Corpuscular Hemoglobin 29.9 pg (25-34); Mean Corpuscular Hgb Conc 33.9 g/dL (32-36); Mean Corpuscular Volume 88.3 fL (80-100); Mean Platelet Volume 10.5 fL (7.4-10.4); Platelet Count 384 K/uL (130-400); RDW Coefficient of Variation 12.5 % (11.5-14.5); Red Blood Count 4.28 M/uL (4.7-6.1); White Blood Count 20.19 K/uL (4.8-10.8)
[2021-03-08 07:35] LABS: Basophils # (auto) 0.03 K/uL (0-0.2); Basophils % (auto) 0.1 %; Eosinophils # (auto) 0.15 K/uL (0-0.5); Eosinophils % (auto) 0.7 %; Immature Granulocytes # (auto) 1.11 K/uL (0.00-0.02); Immature Granulocytes % (auto) 5.5 %; Lymphocytes % (auto) 6.9 %; Monocytes # (auto) 1.92 K/uL (0.11-0.59); Monocytes % (auto) 9.5 %; Neutrophils # (auto) 15.58 K/uL (1.4-6.5); Neutrophils % (auto) 77.3 %
[2021-03-08 07:38] LABS: Albumin Level 2.3 gm/dl (3.4-5.0); BUN Creatinine Ratio 25.3 (10-20); Bilirubin Direct 0.2 mg/dl (0-0.2); Calcium 8.8 mg/dl (8.5-10.1); Est GFR (African American) 109.2 ml/min; Est GFR (Non-African American) 94.3 ml/min; Potassium 3.9 mmol/L (3.5-5.1)
[2021-03-08 07:41] LABS: C Reactive Protein 7.12 mg/dl (0-0.29); Total Protein 6.6 gm/dl (6.4-8.2)
[2021-03-08] MEDS: DOXYCYCLINE SUSP 25 MG/5 ML 60ML PO SCH ×2 (07:59→20:38)
[2021-03-08] MEDS: dexAMETHasone 6 MG in SYRINGE 0 ML IV SCH (07:59)
[2021-03-08] MEDS: FLUTICASONE PROPIONATE NA SPR 16 GM BTL SCH (07:59)
[2021-03-08] MEDS: carvediloL 6.25 MG TAB PO SCH ×2 (08:00→20:38)
[2021-03-08] MEDS: amLODIPine BESYLATE 5 MG TAB PO SCH (08:00)
[2021-03-08] MEDS: BENZONATATE 100 MG CAPSULE PO SCH ×3 (08:00→20:38)
[2021-03-08] MEDS: PANTOprazole 40 MG TAB PO SCH ×2 (08:00→20:38)
[2021-03-08] MEDS: EZETIMIBE 10 MG TABLET PO SCH (08:01)
[2021-03-08] MEDS: ENOXAPARIN INJ 120 MG/0.8 ML SYR SQ SCH ×2 (08:01→20:38)
[2021-03-08] MEDS: FLUoxetine HCL 20 MG CAP PO SCH (08:01)
[2021-03-08] MEDS: guaiFENesin 600 MG TABCR PO SCH ×2 (08:02→20:38)
[2021-03-08] MEDS: GABAPENTIN 400 MG CAP PO SCH ×3 (08:02→20:37)
[2021-03-08] MEDS: hydroCHLOROthiazide 25 MG TAB PO SCH (08:02)
[2021-03-08] MEDS ORDERED: FUROSEMIDE INJ 20 MG/2 ML VIAL IV ONE ×2 (11:50→16:14)
--- NOTE | 2021-03-08 12:56 | XRay Report ---
XR chest 1V portable HISTORY: Shortness of breath. ff up covid pneumonia COMPARISON: Chest 03/04/2021. FINDINGS: No pneumothorax. No pleural effusions. The heart remains mildly enlarged. Extensive bilater al airspace opacities most pronounced within the lower lung zones are again noted. This is similar to the prior study and consistent with a viral pneumonia. IMPRESSION: No significant change in extensive bilateral airspace opacities consistent with a viral pneumonia. ACT 112: Negative or not required by law. Electronically signed by: Sree Natarajan M.D. 03/08/2021 12:55 PM
--- NOTE | 2021-03-08 16:32 | Hospitalist Progress Note ---
Date of Service March 08, 2021 Assessment & Plan (1) Acute hypoxemic respiratory failure: Plan: Acute respiratory failure with hypoxia Multifocal COVID pneumonia COVID Screen: Positive 02/28/21 --CTA:No CTA evidence for pulmonary embolus. Extensive groundglass opacities are present throughout both lungs characteristic of a viral type pneumonitis and Covid 19 pneumonia. Procalcitonin Negative CRP:14.9 03/08/2021 Clinically the same as yesterday CRP down from 13 to 4.9--> 7 Was able to decrease high flow O2 from 100% to 75%--> remains at 75% Intermittently on BiPAP while sleeping Continue dexamethasone day #8/10 baricitinib day #6--> discussed with water resources engineer Dr. Mcmanus, recommend to discontinue for now in light of acute DVTs (03/06/21) Continue cefepime and doxycycline day #5/7 Lasix 20 g IV given today Renal function, AST/ALT good Remdesivir discontinued by pulmonary service Continue proning, incentive spirometry, flutter valve Deep venous thrombosis posterior tibial and peroneal veins In the setting of COVID-19 infection, baricitinib use Patient reports family history of blood clots Lovenox prophylactic dose changed to therapeutic dose 120 mg subcu twice daily Consider NOACs on discharge Mild indirect bilirubinemia, elevated alk phos Resolved Liver ultrasound:The liver is normal in size and echogenicity. Incidental note is made of a small cyst within the liver. Hyponatremia Hypokalemia Likely due to dehydration Sodium 132>137 Stable Hypertension Continue Amlodipine, Carvedilol, HCTZ Chronic back pain Patient plans to follow up with Neurosurgery as outpatient Mood disorder/PTSD at baseline DVT Px: Lovenox SQ Code Status Full code plan of care discussed with patient and his over the phone in detail and at length all questions answered they are understanding, agreeable, comfortable with the plan of care Admission and Anticipated Discharge Date Admission Date: March 01, 2021 Subjective Follow-up for acute hypoxic respiratory failure, COVID-19 pneumonia, etc. Seen resting in bed, sitting in bed, comfortable, not in distress, on high flow oxygen 7 5% FiO2 States he has some dyspnea today but feels it might be psychological Intermittent dry cough No chest pain No fevers or chills No abdominal pain, nausea vomiting, leg pain No other symptoms Patient reassured Review of Systems Review of Systems: all noted and negative except for above Physical Exam Physical Exam: General- oriented x 3, not in distress, speaks in sentences with no effort or accessory muscle use Eyes- anicteric Neck- no JVD Lungs-positive mild rales bilateral bases, no wheezing Heart- normal rate, regular rhythm; no murmurs Abdomen- normal bowel sounds, nondistended, soft, nontender Extremities-no edema right lower leg, no warmth or tenderness Left lower extremity essentially normal Neuro- alert, oriented x 3; no gross focal neurologic deficits Skin- warm & dry Results & Data Results & Data ([facility]) Vital Signs (Past 12 Hours) Vital Signs Temp Pulse Pulse Pulse Resp BP Pulse Ox 03/08/21 15:45 80 20 93 03/08/21 15:38 36.5 C 64 25 H 126/79 94 03/08/21 12:03 36.8 C 61 25 H 131/60 97 03/08/21 11:22 65 25 H 98 03/08/21 10:00 03/08/21 09:23 94 03/08/21 07:52 67 26 H 91 03/08/21 07:41 36.7 C 62 23 137/70 92 03/08/21 07:19 60 Pulse Ox 03/08/21 15:45 03/08/21 15:38 03/08/21 12:03 03/08/21 11:22 03/08/21 10:00 96 03/08/21 09:23 03/08/21 07:52 03/08/21 07:41 03/08/21 07:19 all noted and reviewed including below
[2021-03-08] MEDS: buPROPion XL 300 MG TABCR PO SCH (20:38)
[2021-03-09] MEDS: CEFEPIME 2,000 MG in SYRINGE 0 ML IV SCH ×3 (01:43→17:26)
[2021-03-09 06:57] LABS: Hematocrit (blood only) 37.7 % (42-52); Hemoglobin 12.7 g/dL (14.0-18.0); Mean Corpuscular Hemoglobin 29.5 pg (25-34); Mean Corpuscular Hgb Conc 33.7 g/dL (32-36); Mean Corpuscular Volume 87.7 fL (80-100); Platelet Count 414 K/uL (130-400); RDW Coefficient of Variation 12.5 % (11.5-14.5); RDW Standard Deviation 40.1 fL (36.4-46.3); White Blood Count 21.66 K/uL (4.8-10.8)
[2021-03-09 07:27] LABS: Basophils # (auto) 0.06 K/uL (0-0.2); Basophils % (auto) 0.3 %; Eosinophils # (auto) 0.16 K/uL (0-0.5); Eosinophils % (auto) 0.7 %; Immature Granulocytes # (auto) 0.95 K/uL (0.00-0.02); Immature Granulocytes % (auto) 4.4 %; Lymphocytes # (auto) 1.32 K/uL (1.2-3.4); Lymphocytes % (auto) 6.1 %; Monocytes # (auto) 2.18 K/uL (0.11-0.59); Monocytes % (auto) 10.1 %; Neutrophils # (auto) 16.99 K/uL (1.4-6.5); Neutrophils % (auto) 78.4 %
[2021-03-09 07:32] LABS: Albumin Level 2.3 gm/dl (3.4-5.0); BUN Creatinine Ratio 25.4 (10-20); Bilirubin Direct 0.2 mg/dl (0-0.2); Calcium 9.2 mg/dl (8.5-10.1); Creatinine Clr Calc Pharmacy 118.5 ml/min; Est GFR (African American) 107.3 ml/min; Est GFR (Non-African American) 92.6 ml/min; Potassium 3.7 mmol/L (3.5-5.1)
[2021-03-09 07:34] LABS: Bilirubin,Total 0.9 mg/dl (0.2-1); C Reactive Protein 7.15 mg/dl (0-0.29); Total Protein 6.6 gm/dl (6.4-8.2)
[2021-03-09] MEDS: PANTOprazole 40 MG TAB PO SCH ×2 (08:21→20:21)
[2021-03-09] MEDS: hydroCHLOROthiazide 25 MG TAB PO SCH (08:21)
[2021-03-09] MEDS: guaiFENesin 600 MG TABCR PO SCH ×2 (08:21→20:21)
[2021-03-09] MEDS: FLUTICASONE PROPIONATE NA SPR 16 GM BTL SCH (08:22)
[2021-03-09] MEDS: FLUoxetine HCL 20 MG CAP PO SCH (08:22)
[2021-03-09] MEDS: GABAPENTIN 400 MG CAP PO SCH ×3 (08:22→20:20)
[2021-03-09] MEDS: ENOXAPARIN INJ 120 MG/0.8 ML SYR SQ SCH ×2 (08:23→20:21)
[2021-03-09] MEDS: EZETIMIBE 10 MG TABLET PO SCH (08:23)
[2021-03-09] MEDS: dexAMETHasone 6 MG in SYRINGE 0 ML IV SCH (08:24)
[2021-03-09] MEDS: DOXYCYCLINE SUSP 25 MG/5 ML 60ML PO SCH ×2 (08:24→20:21)
[2021-03-09] MEDS: BENZONATATE 100 MG CAPSULE PO SCH ×3 (08:25→20:20)
[2021-03-09] MEDS: amLODIPine BESYLATE 5 MG TAB PO SCH (08:25)
[2021-03-09] MEDS: carvediloL 6.25 MG TAB PO SCH ×2 (12:48→20:20)
--- NOTE | 2021-03-09 13:21 | Hospitalist Progress Note ---
Date of Service March 09, 2021 Assessment & Plan (1) Acute hypoxemic respiratory failure: Plan: Acute respiratory failure with hypoxia Multifocal COVID pneumonia COVID Screen: Positive 02/28/21 --CTA:No CTA evidence for pulmonary embolus. Extensive groundglass opacities are present throughout both lungs characteristic of a viral type pneumonitis and Covid 19 pneumonia. Procalcitonin Negative CRP:14.9 03/09/2021 Subjectively feels improved today CRP down from 13 to 4.9--> 7--> 7 Was able to decrease high flow O2 from 100% to 75%--> remains at 75% ( 3 days now) Intermittently on BiPAP while sleeping Continue dexamethasone day 9/ baricitinib given for 6 days--> discussed with capping machine operator Dr. Mcmanus, recommended to discontinue for now in light of acute DVTs (03/06/21) Continue cefepime and doxycycline day #6/7 Received Lasix 20 g IV yesterday Renal function, AST/ALT good Remdesivir discontinued by pulmonary service Continue proning, incentive spirometry, flutter valve Deep venous thrombosis posterior tibial and peroneal veins In the setting of COVID-19 infection, baricitinib use Patient reports family history of blood clots Continue Lovenox 120 mg subcu twice daily Consider NOAC on discharge Mild indirect bilirubinemia, elevated alk phos Resolved Liver ultrasound:The liver is normal in size and echogenicity. Incidental note is made of a small cyst within the liver. Hyponatremia Hypokalemia Likely due to dehydration Sodium 132>137 Stable Hypertension Continue Amlodipine, Carvedilol, HCTZ Chronic back pain Patient plans to follow up with Neurosurgery as outpatient Mood disorder/PTSD at baseline DVT Px: Lovenox SQ Code Status Full code plan of care discussed with patient and his over the phone in detail and at length all questions answered they are understanding, agreeable, comfortable with the plan of care Admission and Anticipated Discharge Date Admission Date: March 01, 2021 Subjective Follow-up for acute hypoxic respiratory failure, Covid pneumonia, etc. Seen sitting up at the edge of the bed, resting, on high flow oxygen at 75% FiO2 States he feels slightly better today Breathing slightly better No chest pain Mild right lower extremity discomfort No other symptoms Review of Systems Review of Systems: all noted and negative except for above Physical Exam Physical Exam: General- oriented x 3, not in distress, speaks in sentences with no effort or accessory muscle use Eyes- anicteric Neck- no JVD Lungs-mild crackles at the bases, no wheezing Heart- normal rate, regular rhythm; no murmurs Abdomen- normal bowel sounds, nondistended, soft, nontender Extremities-minimal right lower extremity edema, no calf tenderness Neuro- alert, oriented x 3; no gross focal neurologic deficits Skin- warm & dry Results & Data Results & Data ([facility]) Vital Signs (Past 12 Hours) Vital Signs Temp Pulse Pulse Pulse Resp BP Pulse Ox 03/09/21 11:36 36.8 C 62 22 129/63 96 03/09/21 11:20 65 18 92 03/09/21 08:00 62 03/09/21 07:40 36.9 C 62 22 91/68 L 92 03/09/21 07:15 88 22 93 03/09/21 04:40 60 26 H 90 03/09/21 03:52 36.8 C 61 24 147/83 H 84 L all noted and reviewed including below
[2021-03-09] MEDS: buPROPion XL 300 MG TABCR PO SCH (20:21)
[2021-03-10] MEDS: CEFEPIME 2,000 MG in SYRINGE 0 ML IV SCH ×3 (01:07→17:18)
[2021-03-10 08:23] LABS: Albumin Level 2.3 gm/dl (3.4-5.0); BUN Creatinine Ratio 26.9 (10-20); Bilirubin Direct 0.2 mg/dl (0-0.2); C Reactive Protein 6.68 mg/dl (0-0.29); Creatinine Clr Calc Pharmacy 123.9 ml/min; Est GFR (African American) 110.3 ml/min; Est GFR (Non-African American) 95.1 ml/min; Potassium 3.9 mmol/L (3.5-5.1)
[2021-03-10 08:26] LABS: Bilirubin,Total 0.9 mg/dl (0.2-1); Total Protein 6.3 gm/dl (6.4-8.2)
[2021-03-10] MEDS: dexAMETHasone 6 MG in SYRINGE 0 ML IV SCH (08:49)
[2021-03-10] MEDS: DOXYCYCLINE SUSP 25 MG/5 ML 60ML PO SCH ×2 (08:49→20:05)
[2021-03-10] MEDS: carvediloL 6.25 MG TAB PO SCH ×2 (08:50→20:05)
[2021-03-10] MEDS: ENOXAPARIN INJ 120 MG/0.8 ML SYR SQ SCH ×2 (08:50→20:06)
[2021-03-10] MEDS: GABAPENTIN 400 MG CAP PO SCH ×3 (08:51→20:06)
[2021-03-10] MEDS: PANTOprazole 40 MG TAB PO SCH ×2 (08:51→20:06)
[2021-03-10] MEDS: hydroCHLOROthiazide 25 MG TAB PO SCH (08:51)
[2021-03-10] MEDS: FLUTICASONE PROPIONATE NA SPR 16 GM BTL SCH (08:51)
[2021-03-10] MEDS: FLUoxetine HCL 20 MG CAP PO SCH (08:52)
[2021-03-10] MEDS: amLODIPine BESYLATE 5 MG TAB PO SCH (08:52)
[2021-03-10] MEDS: EZETIMIBE 10 MG TABLET PO SCH (08:52)
[2021-03-10] MEDS: BENZONATATE 100 MG CAPSULE PO SCH ×3 (08:52→20:06)
[2021-03-10] MEDS: guaiFENesin 600 MG TABCR PO SCH ×2 (08:53→20:06)
[2021-03-10] MEDS: buPROPion XL 300 MG TABCR PO SCH (20:06)
--- NOTE | 2021-03-10 21:59 | Hospitalist Progress Note ---
Date of Service March 10, 2021 Assessment & Plan (1) Acute hypoxemic respiratory failure: Plan: Acute respiratory failure with hypoxia Multifocal COVID pneumonia COVID Screen: Positive 02/28/21 --CTA:No CTA evidence for pulmonary embolus. Extensive groundglass opacities are present throughout both lungs characteristic of a viral type pneumonitis and Covid 19 pneumonia. Procalcitonin Negative CRP:14.9 03/09/2021 Subjectively feels improved today CRP down from 13 to 4.9--> 7--> 7 Was able to decrease high flow O2 from 100% to 75%--> remains at 75% ( 3 days now) Intermittently on BiPAP while sleeping Continue dexamethasone day 12/04 baricitinib given for 6 days--> discussed with examiner of currency Dr. Mcmanus, recommended to discontinue for now in light of acute DVTs (03/06/21) Continue cefepime and doxycycline day #7/ Will discontinue IV abx Renal function, AST/ALT good Remdesivir discontinued by pulmonary service Continue proning, incentive spirometry, flutter valve Will consider to give lasix 20mg x1 Deep venous thrombosis posterior tibial and peroneal veins In the setting of COVID-19 infection, baricitinib use Patient reports family history of blood clots Continue Lovenox 120 mg subcu twice daily Consider NOAC on discharge Mild indirect bilirubinemia, elevated alk phos Resolved Liver ultrasound:The liver is normal in size and echogenicity. Incidental note is made of a small cyst within the liver. Hyponatremia Hypokalemia Likely due to dehydration Sodium 132>137 Stable Hypertension Continue Amlodipine, Carvedilol, HCTZ Chronic back pain Patient plans to follow up with Neurosurgery as outpatient Mood disorder/PTSD at baseline DVT Px: Lovenox SQ Code Status Full code plan of care discussed with patient and his over the phone in detail and at length all questions answered they are understanding, agreeable, comfortable with the plan of care Admission and Anticipated Discharge Date Admission Date: March 01, 2021 Subjective Pt was seen and examined for follow up acute hypoxic respiratory failure due to Covid pneumonia Sitting at the the edge of the bed, resting, on high flow oxygen oxygen supplement He said that he feels a little better today compare to yesterday He said that with minimal exertion his oxygen level dropped denies any chest pain, palpitation, dizziness and fever Review of Systems Review of Systems: All systems reviewed & are unremarkable except as noted in Subjective Physical Exam Physical Exam: General- No acute distress Head- atraumatic Eyes- PERRL, EOMI, ENT- oropharynx clear Neck- supple, no JVD Lungs- diminished BS Heart- regular rhythm; no murmur Abdomen- normal bowel sounds, soft, nontender Extremities- no calf tenderness Neuro- alert, oriented x 3; PERRL, EOMI; no facial palsy; no dysarthria Skin- warm & dry Results & Data Results & Data ([facility]) Vital Signs (Past 12 Hours) Vital Signs Temp Pulse Pulse Resp BP Pulse Ox 03/10/21 19:33 68 24 98 03/10/21 19:01 36.6 C 67 18 137/78 99 03/10/21 15:54 65 03/10/21 15:47 36.6 C 59 L 23 120/63 97 03/10/21 15:12 63 24 98 03/10/21 11:22 59 L 15 96 03/10/21 11:02 36.4 C L 55 L 23 119/69 95 03/10/21 10:13 60
[2021-03-11] MEDS: CEFEPIME 2,000 MG in SYRINGE 0 ML IV SCH ×2 (01:43→09:15)
[2021-03-11] MEDS: dexAMETHasone 6 MG in SYRINGE 0 ML IV SCH (08:29)
[2021-03-11] MEDS: FLUTICASONE PROPIONATE NA SPR 16 GM BTL SCH (08:30)
[2021-03-11] MEDS: FLUoxetine HCL 20 MG CAP PO SCH (08:30)
[2021-03-11] MEDS: hydroCHLOROthiazide 25 MG TAB PO SCH (08:30)
[2021-03-11] MEDS: ENOXAPARIN INJ 120 MG/0.8 ML SYR SQ SCH ×2 (08:30→19:27)
[2021-03-11] MEDS: DOXYCYCLINE SUSP 25 MG/5 ML 60ML PO SCH (08:30)
[2021-03-11] MEDS: PANTOprazole 40 MG TAB PO SCH ×2 (08:31→19:28)
[2021-03-11] MEDS: carvediloL 6.25 MG TAB PO SCH ×2 (08:31→19:27)
[2021-03-11] MEDS: GABAPENTIN 400 MG CAP PO SCH ×3 (08:31→19:27)
[2021-03-11] MEDS: BENZONATATE 100 MG CAPSULE PO SCH ×3 (08:31→19:25)
[2021-03-11] MEDS: amLODIPine BESYLATE 5 MG TAB PO SCH (08:32)
[2021-03-11] MEDS: guaiFENesin 600 MG TABCR PO SCH ×2 (08:32→19:28)
[2021-03-11] MEDS: EZETIMIBE 10 MG TABLET PO SCH (08:33)
[2021-03-11] MEDS ORDERED: FUROSEMIDE INJ 20 MG/2 ML VIAL IV ONE (08:55)
[2021-03-11] MEDS: buPROPion XL 300 MG TABCR PO SCH (19:26)
[2021-03-11] MEDS: ACETYLCYSTEINE 10% INHAL SOLN 4 ML **DISPENSED BY RESP. INH SCH (20:31)
[2021-03-11] MEDS: LEVALBUTEROL 1.25MG/0.5ML NEB INH PRN (20:31)
--- NOTE | 2021-03-11 22:08 | Hospitalist Progress Note ---
Date of Service March 11, 2021 Assessment & Plan (1) Acute hypoxemic respiratory failure: Plan: Acute respiratory failure with hypoxia Multifocal COVID pneumonia COVID Screen: Positive 02/28/21 CTA:No CTA evidence for pulmonary embolus. Extensive groundglass opacities are present throughout both lungs characteristic of a viral type pneumonitis Procalcitonin Negative CRP down from 13 to 4.9--> 7--> 7-->6 Continue to require high flow oxygen at 80% Intermittently on BiPAP while sleeping Completed dexamethasone 10 days course baricitinib given for 6 days--> discussed with farmworker dairy Dr. Mcmanus, recommended to discontinue for now in light of acute DVTs (03/06/21) Completed 7days course of abx with cefepime and doxycycline day #09/30 Remdesivir discontinued by pulmonary service Continue proning, incentive spirometry, flutter valve Lasix 20mg IV given today x1 Deep venous thrombosis posterior tibial and peroneal veins In the setting of COVID-19 infection, baricitinib use Patient reports family history of blood clots Continue Lovenox 120 mg subcu twice daily Consider NOAC on discharge Mild indirect bilirubinemia, elevated alk phos Resolved Liver ultrasound:The liver is normal in size and echogenicity. Incidental note is made of a small cyst within the liver. Hyponatremia Hypokalemia Likely due to dehydration Sodium 132>137 Stable Hypertension Continue Amlodipine, Carvedilol, HCTZ Chronic back pain Patient plans to follow up with Neurosurgery as outpatient Mood disorder/PTSD at baseline DVT Px: Lovenox SQ Code Status Full code Disposition Spoke to and provided with updates and answered all her questions Admission and Anticipated Discharge Date Admission Date: March 01, 2021 Subjective Pt was seen and examined for follow up acute hypoxic respiratory failure due to Covid pneumonia Sitting at the the edge of the bed, resting, on high flow oxygen oxygen supplement He said that he feels a l better today compare to yesterday I spoke to today over the phone and provided with update and answered all the questions denies any chest pain, palpitation, dizziness and fever Review of Systems Review of Systems: All systems reviewed & are unremarkable except as noted in Subjective Physical Exam Physical Exam: General- No acute distress Head- atraumatic Eyes- PERRL, EOMI, ENT- oropharynx clear Neck- supple, no JVD Lungs- diminished BS Heart- regular rhythm; no murmur Abdomen- normal bowel sounds, soft, nontender Extremities- no calf tenderness Neuro- alert, oriented x 3; PERRL, EOMI; no facial palsy; no dysarthria Skin- warm & dry Results & Data Results & Data ([facility]) Vital Signs (Past 12 Hours) Vital Signs Temp Pulse Pulse Pulse Resp BP Pulse Ox 03/11/21 20:31 74 18 97 03/11/21 19:24 36.5 C 64 25 H 139/81 95 03/11/21 15:07 72 22 96 03/11/21 14:30 70 03/11/21 11:25 37.3 C 87 22 118/69 97 03/11/21 11:11 68 22 89 L
[2021-03-12] MEDS: ACETYLCYSTEINE 10% INHAL SOLN 4 ML **DISPENSED BY RESP. INH SCH ×2 (07:00→20:23)
[2021-03-12] MEDS: EZETIMIBE 10 MG TABLET PO SCH (07:54)
[2021-03-12] MEDS: PANTOprazole 40 MG TAB PO SCH ×2 (07:54→19:46)
[2021-03-12] MEDS: FLUoxetine HCL 20 MG CAP PO SCH (07:55)
[2021-03-12] MEDS: hydroCHLOROthiazide 25 MG TAB PO SCH (07:55)
[2021-03-12] MEDS: amLODIPine BESYLATE 5 MG TAB PO SCH (07:56)
[2021-03-12] MEDS: GABAPENTIN 400 MG CAP PO SCH ×3 (07:56→19:47)
[2021-03-12] MEDS: guaiFENesin 600 MG TABCR PO SCH ×2 (07:57→19:45)
[2021-03-12] MEDS: BENZONATATE 100 MG CAPSULE PO SCH ×3 (07:57→19:46)
[2021-03-12] MEDS: carvediloL 6.25 MG TAB PO SCH ×2 (07:57→19:47)
[2021-03-12] MEDS: FLUTICASONE PROPIONATE NA SPR 16 GM BTL SCH (07:57)
[2021-03-12] MEDS: dexAMETHasone 6 MG in SYRINGE 0 ML IV SCH (07:58)
[2021-03-12] MEDS: ENOXAPARIN INJ 120 MG/0.8 ML SYR SQ SCH ×2 (07:58→19:48)
[2021-03-12] MEDS: HYDROcodone/HOMATROPINE SYRUP 5MG/1.5MG 5ML UDP PO PRN (19:45)
[2021-03-12] MEDS: buPROPion XL 300 MG TABCR PO SCH (19:47)
[2021-03-12] MEDS: ALBUT/IPRATROP 3MG/0.5MG NEB 3 ML VIAL NEB PRN (20:23)
--- NOTE | 2021-03-12 22:42 | Hospitalist Progress Note ---
Date of Service March 12, 2021 Assessment & Plan (1) Acute hypoxemic respiratory failure: Plan: Acute respiratory failure with hypoxia Multifocal COVID pneumonia COVID Screen: Positive 02/28/21 CTA:No CTA evidence for pulmonary embolus. Extensive groundglass opacities are present throughout both lungs characteristic of a viral type pneumonitis Procalcitonin Negative CRP down from 13 to 4.9--> 7--> 7-->6 Continue to require high flow oxygen at 80% Intermittently on BiPAP while sleeping Completed dexamethasone 10 days course baricitinib given for 6 days--> discussed with slat basket maker helper machine Dr. Mcmanus, recommended to discontinue for now in light of acute DVTs (03/06/21) Completed 7days course of abx with cefepime and doxycycline day #09/30 Remdesivir discontinued by pulmonary service Continue proning, incentive spirometry, flutter valve Will consider to give Lasix 20mg today Deep venous thrombosis posterior tibial and peroneal veins In the setting of COVID-19 infection, baricitinib use Patient reports family history of blood clots Continue Lovenox 120 mg subcu twice daily Consider NOAC on discharge Mild indirect bilirubinemia, elevated alk phos Resolved Liver ultrasound:The liver is normal in size and echogenicity. Incidental note is made of a small cyst within the liver. Hyponatremia Hypokalemia Likely due to dehydration Sodium 132>137 Stable Hypertension Continue Amlodipine, Carvedilol, HCTZ Chronic back pain Patient plans to follow up with Neurosurgery as outpatient Mood disorder/PTSD at baseline DVT Px: Lovenox SQ Code Status Full code Disposition Spoke to yesterday and provided with updates and answered all her questions Admission and Anticipated Discharge Date Admission Date: March 01, 2021 Subjective Pt was seen and examined for follow up acute hypoxic respiratory failure due to Covid pneumonia Sitting at the the edge of the bed, resting, on high flow oxygen oxygen suppleme nt He said that he feels a l better today compare to yesterday denies any chest pain, palpitation, dizziness and fever Physical Exam Physical Exam: General- No acute distress Head- atraumatic Eyes- PERRL, EOMI, ENT- oropharynx clear Neck- supple, no JVD Lungs- diminished BS Heart- regular rhythm; no murmur Abdomen- normal bowel sounds, soft, nontender Extremities- no calf tenderness Neuro- alert, oriented x 3; PERRL, EOMI; no facial palsy; no dysarthria Skin- warm & dry Results & Data Results & Data ([facility]) Vital Signs (Past 12 Hours) Vital Signs Temp Pulse Pulse Pulse Resp BP Pulse Ox 03/12/21 20:24 64 24 96 03/12/21 19:45 36.4 C L 65 22 130/80 97 03/12/21 15:10 36.3 C L 67 33 H 130/75 94 03/12/21 12: 36.3 C L 62 26 H 149/81 H 93 03/12/21 12:02 77 20 96 03/12/21 11:00 56 L
[2021-03-13] MEDS: HYDROcodone/HOMATROPINE SYRUP 5MG/1.5MG 5ML UDP PO PRN ×3 (04:20→17:00)
[2021-03-13] MEDS: ACETYLCYSTEINE 10% INHAL SOLN 4 ML **DISPENSED BY RESP. INH SCH ×2 (07:57→20:28)
[2021-03-13] MEDS: carvediloL 6.25 MG TAB PO SCH ×2 (08:21→19:44)
[2021-03-13] MEDS: PANTOprazole 40 MG TAB PO SCH ×2 (08:21→19:45)
[2021-03-13] MEDS: GABAPENTIN 400 MG CAP PO SCH ×3 (08:21→19:45)
[2021-03-13] MEDS: ENOXAPARIN INJ 120 MG/0.8 ML SYR SQ SCH ×2 (08:22→19:44)
[2021-03-13] MEDS: hydroCHLOROthiazide 25 MG TAB PO SCH (08:22)
[2021-03-13] MEDS: amLODIPine BESYLATE 5 MG TAB PO SCH (08:22)
[2021-03-13] MEDS: guaiFENesin 600 MG TABCR PO SCH ×2 (08:22→19:45)
[2021-03-13] MEDS: FLUoxetine HCL 20 MG CAP PO SCH (08:22)
[2021-03-13] MEDS: BENZONATATE 100 MG CAPSULE PO SCH ×3 (08:22→19:45)
[2021-03-13] MEDS: EZETIMIBE 10 MG TABLET PO SCH (08:22)
[2021-03-13] MEDS: FLUTICASONE PROPIONATE NA SPR 16 GM BTL SCH (08:23)
[2021-03-13 09:23] LABS: Hematocrit (blood only) 39.6 % (42-52); Hemoglobin 13.1 g/dL (14.0-18.0); Mean Corpuscular Hemoglobin 29.6 pg (25-34); Mean Corpuscular Hgb Conc 33.1 g/dL (32-36); Mean Corpuscular Volume 89.4 fL (80-100); Mean Platelet Volume 10.3 fL (7.4-10.4); Platelet Count 474 K/uL (130-400); RDW Coefficient of Variation 12.5 % (11.5-14.5); Red Blood Count 4.43 M/uL (4.7-6.1); White Blood Count 17.47 K/uL (4.8-10.8)
[2021-03-13 09:49] LABS: BUN Creatinine Ratio 22.4 (10-20); Calcium 9.2 mg/dl (8.5-10.1); Creatinine Clr Calc Pharmacy 114.4 ml/min; Est GFR (African American) 103.2 ml/min; Potassium 3.4 mmol/L (3.5-5.1)
[2021-03-13 09:50] LABS: C Reactive Protein 4.14 mg/dl (0-0.29)
[2021-03-13] MEDS ORDERED: POTASSIUM CHLORIDE CRTAB 20 MEQ TABCR PO STA ×2 (11:08→21:00)
[2021-03-13] MEDS ORDERED: COUGH DROP (SUGAR FREE) LOZ 24 LOZ/1 BOX BUCCAL PRN (17:30)
[2021-03-13] MEDS: buPROPion XL 300 MG TABCR PO SCH (19:44)
[2021-03-13] MEDS: ALBUT/IPRATROP 3MG/0.5MG NEB 3 ML VIAL NEB PRN (20:32)
[2021-03-13] MEDS ORDERED: FUROSEMIDE INJ 20 MG/2 ML VIAL IV ONE (20:56)
[2021-03-13] MEDS ORDERED: MELATONIN 3 MG TAB PO PRN (20:57)
[2021-03-13] MEDS: MELATONIN 3 MG TAB PO PRN (21:52)
--- NOTE | 2021-03-13 23:51 | Hospitalist Progress Note ---
Date of Service March 13, 2021 Assessment & Plan (1) Acute hypoxemic respiratory failure: Plan: Acute respiratory failure with hypoxia Multifocal COVID pneumonia COVID Screen: Positive 02/28/21 CTA:No CTA evidence for pulmonary embolus. Extensive groundglass opacities are present throughout both lungs characteristic of a viral type pneumonitis Procalcitonin Negative CRP down from 13 to 4.9--> 7--> 7-->6 Continue to require high flow oxygen at 80% Intermittently on BiPAP while sleeping Completed dexamethasone 10 days course baricitinib given for 6 days--> discussed with continuing education specialist Dr. Mcmanus, recommended to discontinue for now in light of acute DVTs (03/06/21) Completed 7days course of abx with cefepime and doxycycline day #09/30 Remdesivir discontinued by pulmonary service Continue proning, incentive spirometry, flutter valve, mucomyst Lasix 20mg PRN Deep venous thrombosis posterior tibial and peroneal veins In the setting of COVID-19 infection, baricitinib use Patient reports family history of blood clots Continue Lovenox 120 mg subcu twice daily Consider NOAC on discharge Mild indirect bilirubinemia, elevated alk phos Resolved Liver ultrasound:The liver is normal in size and echogenicity. Incidental note is made of a small cyst within the liver. Hyponatremia Hypokalemia Likely due to dehydration Sodium 135 today Stable Hypertension Continue Amlodipine, Carvedilol, HCTZ Chronic back pain Patient plans to follow up with Neurosurgery as outpatient Mood disorder/PTSD at baseline DVT Px: Lovenox SQ Code Status Full code Disposition Spoke to 03/11 and provided with updates and answered all her questions Admission and Anticipated Discharge Date Admission Date: March 01, 2021 Subjective Pt was seen and examined for follow up acute hypoxic respiratory failure due to Covid pneumonia Sitting at the the edge of the bed, resting, on high flow oxygen oxygen supplement He said that his cough is slightly better compared to the last few days denies any chest pain, palpitation, dizziness and fever Review of Systems Review of Systems: All systems reviewed & are unremarkable except as noted in Subjective Physical Exam Physical Exam: General- No acute distress Head- atraumatic Eyes- PERRL, EOMI, ENT- oropharynx clear Neck- supple, no JVD Lungs- diminished BS Heart- regular rhythm; no murmur Abdomen- normal bowel sounds, soft, nontender Extremities- no calf tenderness Neuro- alert, oriented x 3; PERRL, EOMI; no facial palsy; no dysarthria Skin- warm & dry Results & Data Results & Data ([facility]) Vital Signs (Past 12 Hours) Vital Signs Temp Pulse Pulse Resp BP Pulse Ox 03/13/21 20:33 75 20 89 L 03/13/21 19:49 36.6 C 74 22 122/67 96 03/13/21 16:00 36.4 C L 64 19 128/72 90 03/13/21 15:23 76 23 94
[2021-03-14] MEDS: ACETYLCYSTEINE 10% INHAL SOLN 4 ML **DISPENSED BY RESP. INH SCH (07:23)
[2021-03-14] MEDS: ALBUT/IPRATROP 3MG/0.5MG NEB 3 ML VIAL NEB PRN (07:23)
[2021-03-14 07:55] LABS: Hematocrit (blood only) 35.3 % (42-52); Hemoglobin 11.8 g/dL (14.0-18.0); Mean Corpuscular Hemoglobin 30.2 pg (25-34); Mean Corpuscular Hgb Conc 33.4 g/dL (32-36); Mean Corpuscular Volume 90.3 fL (80-100); Mean Platelet Volume 10.4 fL (7.4-10.4); Platelet Count 407 K/uL (130-400); RDW Coefficient of Variation 12.8 % (11.5-14.5); RDW Standard Deviation 42.1 fL (36.4-46.3); Red Blood Count 3.91 M/uL (4.7-6.1); White Blood Count 15.33 K/uL (4.8-10.8)
[2021-03-14] MEDS: HYDROcodone/HOMATROPINE SYRUP 5MG/1.5MG 5ML UDP PO PRN ×3 (07:55→22:17)
[2021-03-14] MEDS: PANTOprazole 40 MG TAB PO SCH ×2 (07:55→21:12)
[2021-03-14] MEDS: BENZONATATE 100 MG CAPSULE PO SCH ×3 (07:56→19:42)
[2021-03-14] MEDS: hydroCHLOROthiazide 25 MG TAB PO SCH (07:56)
[2021-03-14] MEDS: FLUTICASONE PROPIONATE NA SPR 16 GM BTL SCH (07:56)
[2021-03-14] MEDS: guaiFENesin 600 MG TABCR PO SCH ×2 (07:56→19:45)
[2021-03-14] MEDS: FLUoxetine HCL 20 MG CAP PO SCH (07:56)
[2021-03-14] MEDS: amLODIPine BESYLATE 5 MG TAB PO SCH (07:56)
[2021-03-14] MEDS: EZETIMIBE 10 MG TABLET PO SCH (07:56)
[2021-03-14] MEDS: ENOXAPARIN INJ 120 MG/0.8 ML SYR SQ SCH (07:57)
[2021-03-14] MEDS: GABAPENTIN 400 MG CAP PO SCH ×3 (07:57→21:13)
[2021-03-14] MEDS: carvediloL 6.25 MG TAB PO SCH ×2 (07:57→21:13)
[2021-03-14 08:26] LABS: BUN Creatinine Ratio 20.8 (10-20); Est GFR (African American) 110.8 ml/min; Est GFR (Non-African American) 95.6 ml/min; Potassium 3.9 mmol/L (3.5-5.1)
[2021-03-14] MEDS ORDERED: POTASSIUM CHLORIDE 10 MEQ TABCR PO STA (10:17)
[2021-03-14] MEDS ORDERED: FUROSEMIDE INJ 20 MG/2 ML VIAL IV ONE (10:17)
[2021-03-14] MEDS: SODIUM CHLOR 7% 4 ML NEB NEB SCH (19:52)
[2021-03-14] MEDS ORDERED: ALBUT/IPRATROP 3MG/0.5MG NEB 3 ML VIAL NEB STA (20:05)
--- NOTE | 2021-03-14 20:10 | Communication Note ---
Date of Service: March 14, 2021 Patient with increasing O2 requirement and hemoptysis symptoms as per RN. Hold Lovenox for now. Resume if hemoglobin stable. Will relay to AM provider.
[2021-03-14] MEDS ORDERED: methylPREDNISolone 40 MG in SYRINGE 0 ML IV ONE (20:30)
--- NOTE | 2021-03-14 20:59 | XRay Report ---
XR chest 1V portable CLINICAL HISTORY: low o2. Follow-up airspace opacities COMPARISON STUDY: 03/08/2021 TECHNIQUE: 1 view of the chest FINDINGS: Single frontal view of the chest demonstrates the heart to again be mildly enlarged. Compared to the previous examination , there is a decreased inspiratory effort with crowding of the bronchovascular m arkings bilaterally. However, there is still evidence for worsening of diffuse interstitial and alveo lar opacities bilaterally. There is also haziness at both lung bases suspicious for small bilateral p leural effusions. There is no evidence for vascular congestion. There is no acute osseous pathology. IMPRESSION: Decreased inspiration with worsening of bilateral interstitial and alveolar opacities. Th ere is also suspicion of small bilateral pleural effusions. ACT 112: Negative or not required by law. Electronically signed by: Jose Emerson M.D. 03/14/2021 8:57 PM
[2021-03-14] MEDS: buPROPion XL 300 MG TABCR PO SCH (21:13)
[2021-03-14 21:20] LABS: Base Excess ABG 3.8 mEq/L (-9-1.8); HCO3 ABG 28 mmol/L (19-24); Oxygen Saturation ABG 97.3 % (90-95); PCO2 ABG 40 mmHg (35-46); PO2 ABG 91 mmHg (80-95); pH ABG 7.46 (7.35-7.45)
[2021-03-14 21:21] LABS: Allen Test Pos (Pos)
[2021-03-14 21:24] LABS: Hematocrit (blood only) 35.9 % (42-52); Hemoglobin 12.2 g/dL (14.0-18.0); Mean Corpuscular Volume 88.4 fL (80-100); Platelet Count 389 K/uL (130-400); RDW Coefficient of Variation 12.6 % (11.5-14.5); RDW Standard Deviation 40.6 fL (36.4-46.3); Red Blood Count 4.06 M/uL (4.7-6.1); White Blood Count 18.85 K/uL (4.8-10.8)
[2021-03-14 21:27] LABS: Partial Thromboplastin Time 25.1 Seconds (21.0-31.0)
[2021-03-14 21:35] LABS: BUN Creatinine Ratio 17.3 (10-20); Calcium 8.7 mg/dl (8.5-10.1); Creatinine Clr Calc Pharmacy 103.4 ml/min; Est GFR (African American) 91.3 ml/min; Est GFR (Non-African American) 78.8 ml/min; Magnesium 1.7 mg/dl (1.8-2.4); Potassium 3.6 mmol/L (3.5-5.1)
[2021-03-14 21:42] LABS: ALC (manual) 2.45 K/uL (1.2-3.4); ANC (manual) 14.76 K/uL (1.4-6.5); Echinocytes 1+; Eosinophils # (manual) 0.17 K/uL (0-0.5); Eosinophils % (manual) 0.9 %; Lymphocytes # (manual) 2.45 K/uL (1.2-3.4); Monocytes # (manual) 1.47 K/uL (0.11-0.59); Monocytes % (manual) 7.8 %; Neutrophils # (manual) 14.76 K/uL (1.4-6.5); Neutrophils % (manual) 78.3 %
[2021-03-14] MEDS: MAGNESIUM SULFATE / D5W 1 GM/100 ML BAG IV SCH (22:19)
--- NOTE | 2021-03-14 22:21 | Hospitalist Progress Note ---
Date of Service March 14, 2021 Assessment & Plan (1) Acute hypoxemic respiratory failure: Plan: Acute respiratory failure with hypoxia Multifocal COVID pneumonia COVID Screen: Positive 02/28/21 CTA:No CTA evidence for pulmonary embolus. Extensive groundglass opacities are present throughout both lungs characteristic of a viral type pneumonitis Procalcitonin Negative CRP down from 13 to 4.9--> 7--> 7-->6 Continue to require high flow oxygen at 80% Intermittently on BiPAP while sleeping Completed dexamethasone 10 days course baricitinib given for 6 days--> discussed with patient financial advocate Dr. Mcmanus, recommended to discontinue for now in light of acute DVTs (03/06/21) Completed 7 d/ays course of abx with cefepime and doxycycline Remdesivir discontinued by pulmonary service Case discussed with pulmonary and agreed to discontinue dexamethasone since CRP continue to trend down Patient received 12-day of dexamethasone Continue proning, incentive spirometry, flutter valve Will discontinue mucomyst Hypertonic saline nebulizer treatment added Continue Lasix 20mg PRN Deep venous thrombosis posterior tibial and peroneal veins In the setting of COVID-19 infection, baricitinib use Patient reports family history of blood clots Continue Lovenox 120 mg subcu twice daily Consider NOAC on discharge Mild indirect bilirubinemia, elevated alk phos Resolved Liver ultrasound:The liver is normal in size and echogenicity. Incidental note is made of a small cyst within the liver. Hyponatremia Hypokalemia Likely due to dehydration Sodium 135 today Stable Hypertension Continue Amlodipine, Carvedilol, HCTZ Chronic back pain Patient plans to follow up with Neurosurgery as outpatient Mood disorder/PTSD at baseline DVT Px: Lovenox SQ Code Status Full code Disposition Spoke to 03/14 and provided with updates and answered all her questions Admission and Anticipated Discharge Date Admission Date: March 01, 2021 Subjective Pt was seen and examined for follow up acute hypoxic respiratory failure due to Covid pneumonia Sitting at the the edge of the bed on high flow oxygen oxygen supplement Continue to cough and during the spelling cough is oxygen saturation dropped Spoke to today and provided with updates and answer all the question denies any chest pain, palpitation, dizziness and fever Review of Systems Review of Systems: All systems reviewed & are unremarkable except as noted in Subjective Physical Exam Physical Exam: General- No acute distress Head- atraumatic Eyes- PERRL, EOMI, ENT- oropharynx clear Neck- supple, no JVD Lungs- diminished BS Heart- regular rhythm; no murmur Abdomen- normal bowel sounds, soft, nontender Extremities- no calf tenderness Neuro- alert, oriented x 3; PERRL, EOMI; no facial palsy; no dysarthria Skin- warm & dry Results & Data Results & Data ([facility]) Vital Signs (Past 12 Hours) Vital Signs Temp Pulse Pulse Resp BP Pulse Ox 03/14/21 21:50 91 03/14/21 20:58 97 03/14/21 20:37 78 24 96 03/14/21 20:19 70 22 98 03/14/21 19:50 36.6 C 79 19 128/69 92 03/14/21 15:32 36.8 C 70 20 127/79 93 03/14/21 15:25 77 20 90 03/14/21 15:00 66 03/14/21 14:46 95 03/14/21 11:24 63 20 94 03/14/21 11:23 37.3 C 65 22 117/68 94
[2021-03-15] MEDS: MAGNESIUM SULFATE / D5W 1 GM/100 ML BAG IV SCH (00:35)
[2021-03-15] MEDS: SODIUM CHLOR 7% 4 ML NEB NEB SCH ×2 (08:08→18:46)
[2021-03-15] MEDS: HYDROcodone/HOMATROPINE SYRUP 5MG/1.5MG 5ML UDP PO PRN ×2 (08:45→21:54)
[2021-03-15] MEDS: FLUoxetine HCL 20 MG CAP PO SCH (08:46)
[2021-03-15] MEDS: GABAPENTIN 400 MG CAP PO SCH ×3 (08:46→20:04)
[2021-03-15] MEDS: FLUTICASONE PROPIONATE NA SPR 16 GM BTL SCH (08:46)
[2021-03-15] MEDS: amLODIPine BESYLATE 5 MG TAB PO SCH (08:46)
[2021-03-15] MEDS: EZETIMIBE 10 MG TABLET PO SCH (08:46)
[2021-03-15] MEDS: carvediloL 6.25 MG TAB PO SCH ×2 (08:47→20:03)
[2021-03-15] MEDS: PANTOprazole 40 MG TAB PO SCH ×2 (08:47→20:03)
[2021-03-15] MEDS: BENZONATATE 100 MG CAPSULE PO SCH ×3 (08:47→20:03)
[2021-03-15] MEDS: hydroCHLOROthiazide 25 MG TAB PO SCH (08:48)
[2021-03-15] MEDS: guaiFENesin 600 MG TABCR PO SCH ×2 (08:49→20:02)
[2021-03-15] MEDS ORDERED: ENOXAPARIN INJ 120 MG/0.8 ML SYR SQ ONE (14:34)
[2021-03-15] MEDS: buPROPion XL 300 MG TABCR PO SCH (20:02)
--- NOTE | 2021-03-15 21:21 | Hospitalist Progress Note ---
Date of Service March 15, 2021 Assessment & Plan (1) Acute hypoxemic respiratory failure: Plan: Acute respiratory failure with hypoxia Multifocal COVID pneumonia COVID Screen: Positive 02/28/21 CTA:No CTA evidence for pulmonary embolus. Extensive groundglass opacities are present throughout both lungs characteristic of a viral type pneumonitis Procalcitonin Negative CRP down from 13 to 4.9--> 7--> 7-->6 Continue to require high flow oxygen at 80% Intermittently on BiPAP while sleeping Completed dexamethasone 10 days course baricitinib given for 6 days--> discussed with cutting table operator Dr. Mcmanus, recommended to discontinue for now in light of acute DVTs (03/06/21) Completed 7 d/ays course of abx with cefepime and doxycycline Remdesivir discontinued by pulmonary service Case discussed with pulmonary and agreed to discontinue dexamethasone since CRP continue to trend down Patient received 12-day of dexamethasone Continue proning, incentive spirometry, flutter valve Mucomyst discontinued Continue Hypertonic saline nebulizer treatment Continue Lasix 20mg PRN Deep venous thrombosis posterior tibial and peroneal veins In the setting of COVID-19 infection, baricitinib use Patient reports family history of blood clots Continue Lovenox 120 mg subcu twice daily Consider NOAC on discharge Mild indirect bilirubinemia, elevated alk phos Resolved Liver ultrasound:The liver is normal in size and echogenicity. Incidental note is made of a small cyst within the liver. Hyponatremia Hypokalemia Likely due to dehydration Sodium 135 today Stable Hypertension Continue Amlodipine, Carvedilol, HCTZ Chronic back pain Patient plans to follow up with Neurosurgery as outpatient Mood disorder/PTSD at baseline DVT Px: Lovenox SQ Code Status Full code Disposition Spoke to 03/14 and provided with updates and answered all her questions Admission and Anticipated Discharge Date Admission Date: March 01, 2021 Subjective Pt was seen and examined for follow up acute hypoxic respiratory failure due to Covid pneumonia Sitting at the the edge of the bed on high flow oxygen oxygen supplement Continue to cough and during the spelling cough is oxygen saturation dropped denies any chest pain, palpitation, dizziness and fever Review of Systems Review of Systems: All systems reviewed & are unremarkable except as noted in Subjective Physical Exam Physical Exam: General- No acute distress Head- atraumatic Eyes- PERRL, EOMI, ENT- oropharynx clear Neck- supple, no JVD Lungs- diminished BS Heart- regular rhythm; no murmur Abdomen- normal bowel sounds, soft, nontender Extremities- no calf tenderness Neuro- alert, oriented x 3; PERRL, EOMI; no facial palsy; no dysarthria Skin- warm & dry Results & Data Results & Data ([facility]) Vital Signs (Past 12 Hours) Vital Signs Temp Pulse Pulse Resp BP Pulse Ox 03/15/21 18:08 69 20 96 03/15/21 16:02 37.1 C 63 14 110/69 97 03/15/21 15:33 65 89 L 03/15/21 12:00 59 L 20 29 L 03/15/21 11:05 36.9 C 78 123/73 92 03/15/21 10:19 58 L
[2021-03-15] MEDS: ENOXAPARIN INJ 120 MG/0.8 ML SYR SQ SCH (23:16)
[2021-03-16] MEDS: HYDROcodone/HOMATROPINE SYRUP 5MG/1.5MG 5ML UDP PO PRN ×2 (06:25→19:16)
[2021-03-16] MEDS: SODIUM CHLOR 7% 4 ML NEB NEB SCH (08:03)
[2021-03-16] MEDS: FLUTICASONE PROPIONATE NA SPR 16 GM BTL SCH (09:49)
[2021-03-16] MEDS: LORazepam 0.5 MG TAB PO PRN ×2 (09:49→20:59)
[2021-03-16] MEDS: FLUoxetine HCL 20 MG CAP PO SCH (09:50)
[2021-03-16] MEDS: guaiFENesin 600 MG TABCR PO SCH ×2 (09:50→20:09)
[2021-03-16] MEDS: EZETIMIBE 10 MG TABLET PO SCH (09:50)
[2021-03-16] MEDS: ENOXAPARIN INJ 120 MG/0.8 ML SYR SQ SCH ×2 (09:50→20:10)
[2021-03-16] MEDS: PANTOprazole 40 MG TAB PO SCH ×2 (09:50→20:09)
[2021-03-16] MEDS: BENZONATATE 100 MG CAPSULE PO SCH ×3 (09:50→20:55)
[2021-03-16] MEDS: carvediloL 6.25 MG TAB PO SCH ×2 (09:50→20:09)
[2021-03-16] MEDS: hydroCHLOROthiazide 25 MG TAB PO SCH (09:50)
[2021-03-16] MEDS: GABAPENTIN 400 MG CAP PO SCH ×3 (09:50→20:08)
[2021-03-16] MEDS: amLODIPine BESYLATE 5 MG TAB PO SCH (09:51)
[2021-03-16] MEDS: buPROPion XL 300 MG TABCR PO SCH (20:09)
--- NOTE | 2021-03-16 22:37 | Hospitalist Progress Note ---
Date of Service March 16, 2021 Assessment & Plan (1) Acute hypoxemic respiratory failure: Plan: Acute respiratory failure with hypoxia Multifocal COVID pneumonia COVID Screen: Positive 02/28/21 CTA:No CTA evidence for pulmonary embolus. Extensive groundglass opacities are present throughout both lungs characteristic of a viral type pneumonitis Procalcitonin Negative CRP down from 13 to 4.9--> 7--> 7-->6 Continue to require high flow oxygen at 80% Intermittently on BiPAP while sleeping Completed dexamethasone 10 days course baricitinib given for 6 days--> discussed with comfort station attendant Dr. Mcmanus, recommended to discontinue for now in light of acute DVTs (03/06/21) Completed 7 d/ays course of abx with cefepime and doxycycline Remdesivir discontinued by pulmonary service Case discussed with pulmonary and agreed to discontinue dexamethasone since CRP continue to trend down Patient received 12-day of dexamethasone Continue proning, incentive spirometry, flutter valve Mucomyst discontinued Continue Hypertonic saline nebulizer treatment Continue Lasix 20mg PRN We will continue to wean off oxygen gradually since patient is very anxious to try nasal cannula Deep venous thrombosis posterior tibial and peroneal veins In the setting of COVID-19 infection, baricitinib use Patient reports family history of blood clots Continue Lovenox 120 mg subcu twice daily Consider NOAC on discharge Mild indirect bilirubinemia, elevated alk phos Resolved Liver ultrasound:The liver is normal in size and echogenicity. Incidental note is made of a small cyst within the liver. Hyponatremia Hypokalemia Likely due to dehydration Sodium 135 today Stable Hypertension Continue Amlodipine, Carvedilol, HCTZ Chronic back pain Patient plans to follow up with Neurosurgery as outpatient Mood disorder/PTSD at baseline DVT Px: Lovenox SQ Code Status Full code Disposition Spoke to 03/14 and provided with updates and answered all her questions Admission and Anticipated Discharge Date Admission Date: March 01, 2021 Subjective Pt was seen and examined for follow up acute hypoxic respiratory failure due to Covid pneumonia Sitting at the the edge of the bed on high flow oxygen oxygen supplement Continue to cough and during the spelling cough is oxygen saturation dropped Today patient oxygen dropped below 70 when he got up to use the bathroom, he became very anxious and was placed back in CPAP denies any chest pain, palpitation, dizziness and fever Review of Systems Review of Systems: All systems reviewed & are unremarkable except as noted in Subjective Physical Exam Physical Exam: General- No acute distress Head- atraumatic Eyes- PERRL, EOMI, ENT- oropharynx clear Neck- supple, no JVD Lungs- diminished BS Heart- regular rhythm; no murmur Abdomen- normal bowel sounds, soft, nontender Extremities- no calf tenderness Neuro- alert, oriented x 3; PERRL, EOMI; no facial palsy; no dysarthria Skin- warm & dry Results & Data Results & Data ([facility]) Vital Signs (Past 12 Hours) Vital Signs Temp Pulse Pulse Resp BP Pulse Ox 03/16/21 19:51 36.7 C 71 22 115/73 88 L 03/16/21 19:27 71 20 93 03/16/21 15:46 36.8 C 64 107/70 97 03/16/21 15:36 63 03/16/21 15:24 66 22 91 03/16/21 12:00 36.7 C 69 16 107/67 94
[2021-03-17] MEDS: HYDROcodone/HOMATROPINE SYRUP 5MG/1.5MG 5ML UDP PO PRN (04:16)
[2021-03-17 06:58] LABS: Hematocrit (blood only) 32.9 % (42-52); Hemoglobin 10.9 g/dL (14.0-18.0); Mean Corpuscular Hemoglobin 29.3 pg (25-34); Mean Corpuscular Hgb Conc 33.1 g/dL (32-36); Mean Corpuscular Volume 88.4 fL (80-100); Mean Platelet Volume 10.3 fL (7.4-10.4); Platelet Count 345 K/uL (130-400); RDW Coefficient of Variation 12.7 % (11.5-14.5); RDW Standard Deviation 41.1 fL (36.4-46.3); Red Blood Count 3.72 M/uL (4.7-6.1); White Blood Count 15.12 K/uL (4.8-10.8)
[2021-03-17 07:31] LABS: BUN Creatinine Ratio 20.2 (10-20); Est GFR (African American) 115.9 ml/min; Potassium 3.7 mmol/L (3.5-5.1)
[2021-03-17 07:32] LABS: C Reactive Protein 9.58 mg/dl (0-0.29)
[2021-03-17] MEDS: GABAPENTIN 400 MG CAP PO SCH ×3 (09:13→20:40)
[2021-03-17] MEDS: amLODIPine BESYLATE 5 MG TAB PO SCH (09:14)
[2021-03-17] MEDS: carvediloL 6.25 MG TAB PO SCH ×2 (09:14→20:39)
[2021-03-17] MEDS: hydroCHLOROthiazide 25 MG TAB PO SCH (09:15)
[2021-03-17] MEDS: guaiFENesin 600 MG TABCR PO SCH ×2 (09:15→20:40)
[2021-03-17] MEDS: EZETIMIBE 10 MG TABLET PO SCH (09:16)
[2021-03-17] MEDS: PANTOprazole 40 MG TAB PO SCH ×2 (09:16→20:41)
[2021-03-17] MEDS: FLUoxetine HCL 20 MG CAP PO SCH (09:16)
[2021-03-17] MEDS: FLUTICASONE PROPIONATE NA SPR 16 GM BTL SCH (09:17)
[2021-03-17] MEDS: ENOXAPARIN INJ 120 MG/0.8 ML SYR SQ SCH ×2 (09:17→20:41)
[2021-03-17] MEDS: BENZONATATE 100 MG CAPSULE PO SCH ×3 (09:18→20:37)
[2021-03-17] MEDS ORDERED: guaiFENesin 600 MG TABCR PO ONE (10:00)
[2021-03-17] MEDS ORDERED: FUROSEMIDE INJ 20 MG/2 ML VIAL IV ONE (10:00)
[2021-03-17] MEDS: LORazepam 0.5 MG TAB PO PRN (11:45)
--- NOTE | 2021-03-17 11:55 | Hospitalist Progress Note ---
Date of Service March 17, 2021 Assessment & Plan (1) Acute hypoxemic respiratory failure: Plan: Acute respiratory failure with hypoxia Multifocal COVID pneumonia COVID Screen: Positive 02/28/21 CTA:No CTA evidence for pulmonary embolus. Extensive groundglass opacities are present throughout both lungs characteristic of a viral type pneumonitis Completed dexamethasone 10 days course Got baricitinib given for 6 days but discontinued due to acute DVTs (03/06/21) Completed 7 d/ays course of abx with cefepime and doxycycline Remdesivir discontinued by pulmonary service CRP had been trending down but trended up today. Monitor Patient reports difficulty proning but states he tries to lay on the side Continue incentive spirometry, flutter valve Optimize cough control sine patient reports that coughing bouts usually worsens his symptoms and cause his ox sats to drop Increase guaifenesin to 1200mg bid Stop hycodan. Patient reports better control with tessalon perrles. This was resumed Continue Hypertonic saline nebulizer treatment CXR from 03/14/21 reports possible small b/l pleural effusion. IV lasix 20mg daily for now and monitor Wean as tolerated Deep venous thrombosis posterior tibial and peroneal veins In the setting of COVID-19 infection, baricitinib use Patient reports family history of blood clots Continue Lovenox 120 mg subcu twice daily Will do NOAC on discharge Mild indirect bilirubinemia, elevated alk phos Resolved Liver ultrasound:The liver is normal in size and echogenicity. Incidental note is made of a small cyst within the liver. Hyponatremia Hypokalemia Sodium 131 today K is 3.7 today Monitor Hold HCTZ for now while on iv lasix as needed Hypertension Continue Amlodipine, Carvedilol Chronic back pain Patient plans to follow up with Neurosurgery as outpatient Mood disorder/PTSD at baseline DVT Px: Lovenox SQ Code Status Full code Admission and Anticipated Discharge Date Admission Date: March 01, 2021 Subjective 60 year old man with h/o hypertension, hyperlipidemia, chronic back pain, mood disorder/PTSD, past tobacco abuse who presented with cough and shortness of breath Managed for acute hypoxic respiratory failure due to COVID-19 pneumonia. Completed COVID-19 specific therapies. However still requiring a lot of oxygen. Patient seen and examined this morning. Reports occasional bouts of coughing which leads to worsening oxygen saturation, increased shortness of breath and lightheadedness. Reported some earlier this morning. The time of my evaluation, patient was on CPAP. Denies any chest pain, nausea, vomiting Denies any abdominal pain, diarrhea Denies dysuria, frequency, urgency. Denies fevers, chills Physical Exam Constitutional: + well hydrated and + obese; no acute distress Eyes: PERRL, conjunctivae normal, anicteric sclerae ENMT: external ear and nose normal, oropharynx normal Respiratory: Coughing, BiPAP. Diminished breath sounds. Basilar crackles Cardiovascular: Rate/Rhythm: regular rate and regular rhythm S1-S2 Gastrointestinal (Abdomen): normal bowel sounds, soft, nontender, no hepatosplenomegaly Musculoskeletal: no cyanosis or clubbing, extremities motor strength 5/5 Neurologic: PERRL, EOMI, accommodation nl, no face palsy, no dysarthria Psychiatric: A+Ox3, euthymic affect Results & Data Results & Data ([facility]) Vital Signs (Past 12 Hours) Vital Signs Temp Pulse Pulse Resp BP Pulse Ox 03/17/21 10:47 69 20 91 03/17/21 08:00 37.0 C 72 20 139/70 98 03/17/21 07:18 67 20 92 03/17/21 07:00 65 03/17/21 03:57 36.6 C 69 22 100/63 95 03/17/21 03:20 68 28 H 95 03/17/21 00:02 36.9 C 66 20 101/63 95 Laboratory Results Abnormal lab results 03/17/21 03/17/21 Range/Units 06:11 06:11 WBC 15.12 H (4.8-10.8) K/uL RBC 3.72 L (4.7-6.1) M/uL Hgb 10.9 L (14.0-18.0) g/dL Hct 32.9 L (42-52) % Sodium 131 L (136-145) mmol/L Chloride 96 L (98-107) mmol/L BUN/Creatinine Ratio 20.2 H (10-20) C-Reactive Protein 9.58 H (0-0.29) mg/dl
[2021-03-17] MEDS: buPROPion XL 300 MG TABCR PO SCH (20:39)
[2021-03-18] MEDS: LORazepam 0.5 MG TAB PO PRN ×3 (04:34→22:30)
[2021-03-18 08:16] LABS: Hematocrit (blood only) 32.2 % (42-52); Hemoglobin 10.8 g/dL (14.0-18.0); Mean Corpuscular Hemoglobin 30.2 pg (25-34); Mean Corpuscular Hgb Conc 33.5 g/dL (32-36); Mean Corpuscular Volume 89.9 fL (80-100); Mean Platelet Volume 9.5 fL (7.4-10.4); Platelet Count 301 K/uL (130-400); RDW Coefficient of Variation 12.8 % (11.5-14.5); RDW Standard Deviation 41.9 fL (36.4-46.3); Red Blood Count 3.58 M/uL (4.7-6.1); White Blood Count 13.51 K/uL (4.8-10.8)
[2021-03-18 08:44] LABS: BUN Creatinine Ratio 17.4 (10-20); Calcium 8.6 mg/dl (8.5-10.1); Creatinine Clr Calc Pharmacy 129.8 ml/min; Est GFR (African American) 112.4 ml/min; Potassium 3.6 mmol/L (3.5-5.1)
[2021-03-18] MEDS: BENZONATATE 100 MG CAPSULE PO SCH ×3 (09:05→22:30)
[2021-03-18] MEDS: PANTOprazole 40 MG TAB PO SCH ×2 (09:06→22:29)
[2021-03-18] MEDS: carvediloL 6.25 MG TAB PO SCH ×2 (09:06→22:29)
[2021-03-18] MEDS: amLODIPine BESYLATE 5 MG TAB PO SCH (09:06)
[2021-03-18] MEDS: EZETIMIBE 10 MG TABLET PO SCH (09:07)
[2021-03-18] MEDS: GABAPENTIN 400 MG CAP PO SCH ×3 (09:07→22:30)
[2021-03-18] MEDS: FLUoxetine HCL 20 MG CAP PO SCH (09:07)
[2021-03-18] MEDS: guaiFENesin 600 MG TABCR PO SCH ×2 (09:07→22:30)
[2021-03-18] MEDS: FLUTICASONE PROPIONATE NA SPR 16 GM BTL SCH (09:08)
[2021-03-18] MEDS: ENOXAPARIN INJ 120 MG/0.8 ML SYR SQ SCH ×2 (09:08→22:31)
[2021-03-18] MEDS: FUROSEMIDE INJ 20 MG/2 ML VIAL IV SCH (09:09)
--- NOTE | 2021-03-18 10:10 | XRay Report ---
XR chest 1V portable CLINICAL HISTORY: Reeval, hypoxic. Follow-up bilateral interstitial and alveolar opacities COMPARISON STUDY: No previous studies for comparison. TECHNIQUE: 1 view of the chest FINDINGS: Single frontal view of the chest demonstrates the heart to again be mildly enlarged. Compared to prev ious examination, there is again a decreased inspiratory effort with worsening of diffuse interstitia l and alveolar opacities bilaterally. There is no evidence for pleural effusion. There is no evidence for vascular congestion. There is no acute osseous pathology. IMPRESSION: Decreased inspiratory effort is again seen with continued worsening of bilateral intersti tial and alveolar opacities. ACT 112: Negative or not required by law. Electronically signed by: Jose Emerson M.D. 03/18/2021 10:09 AM
--- NOTE | 2021-03-18 11:44 | Hospitalist Progress Note ---
Date of Service March 18, 2021 Assessment & Plan (1) Acute hypoxemic respiratory failure: Plan: Acute respiratory failure with hypoxia Multifocal COVID pneumonia COVID Screen: Positive 02/28/21 CTA:No CTA evidence for pulmonary embolus. Extensive groundglass opacities are present throughout both lungs characteristic of a viral type pneumonitis Completed dexamethasone 10 days course Got baricitinib given for 6 days but discontinued due to acute DVTs (03/06/21) Completed 7 days course of abx with cefepime and doxycycline Remdesivir discontinued by pulmonary service CRP had been trending down but trended up in the past few days CXR today showing Worsening bilateral interstitial and alveolar opacities. Started on azithromycin Procalcitonin is 0.18. Send sputum culture Discussed with bench worker hollow handle. Agrees with plan. BNP is 218. We will continue to keep patient in negative fluid balance with Lasix Deep venous thrombosis posterior tibial and peroneal veins In the setting of COVID-19 infection, baricitinib use Patient reports family history of blood clots Continue Lovenox 120 mg subcu twice daily Will do NOAC on discharge Mild indirect bilirubinemia, elevated alk phos Resolved Liver ultrasound:The liver is normal in size and echogenicity. Incidental note is made of a small cyst within the liver. Hyponatremia Hypokalemia Sodium 133 today K is 3.6 today Monitor Hold HCTZ for now while on iv lasix as needed Hypertension Continue Amlodipine, Carvedilol Chronic back pain Patient plans to follow up with Neurosurgery as outpatient Mood disorder/PTSD at baseline DVT Px: Lovenox SQ Code Status Full code Called and updated her as well Admission and Anticipated Discharge Date Admission Date: March 01, 2021 Subjective 60 year old man with h/o hypertension, hyperlipidemia, chronic back pain, mood disorder/PTSD, past tobacco abuse who presented with cough and shortness of breath Managed for acute hypoxic respiratory failure due to COVID-19 pneumonia. Completed COVID-19 specific therapies. However still requiring a lot of oxygen. Patient seen and examined this morning. Patient continues to report persistent productive cough and shortness of breath Denies any chest pain, nausea, vomiting Denies any abdominal pain, diarrhea Denies dysuria, frequency, urgency. Denies fevers, chills Physical Exam Constitutional: + well hydrated and + obese; no acute distress Eyes: PERRL, conjunctivae normal, anicteric sclerae ENMT: external ear and nose normal, oropharynx normal Respiratory: On HFNC Diminished breath sounds globally Coughing Cardiovascular: Rate/Rhythm: regular rate and regular rhythm S1 S2 Gastrointestinal (Abdomen): normal bowel sounds, soft, nontender, no hepatosplenomegaly Musculoskeletal: no cyanosis or clubbing, extremities motor strength 5/5 Neurologic: PERRL, EOMI, accommodation nl, no face palsy, no dysarthria Psychiatric: A+Ox3, euthymic affect Results & Data Results & Data ([facility]) Vital Signs (Past 12 Hours) Vital Signs Temp Pulse Pulse Resp BP Pulse Ox 03/18/21 11:11 75 24 90 03/18/21 08:19 68 03/18/21 07:15 69 26 H 94 03/18/21 07:00 37.2 C 92 H 22 127/82 91 03/18/21 03:49 36.5 C 71 24 110/68 92 03/18/21 03:00 74 32 H 92 Laboratory Results Abnormal lab results 03/18/21 03/18/21 Range/Units 07:58 07:58 WBC 13.51 H (4.8-10.8) K/uL RBC 3.58 L (4.7-6.1) M/uL Hgb 10.8 L (14.0-18.0) g/dL Hct 32.2 L (42-52) % Sodium 133 L (136-145) mmol/L Chloride 97 L (98-107) mmol/L Glucose 113 H (70-99) mg/dl C-Reactive Protein 17.00 H (0-0.29) mg/dl
[2021-03-18] MEDS: HYDROcodone/HOMATROPINE SYRUP 5MG/1.5MG 5ML UDP PO PRN ×2 (12:42→22:32)
[2021-03-18] MEDS ORDERED: FUROSEMIDE INJ 20 MG/2 ML VIAL IV ONE (14:43)
[2021-03-18] MEDS: AZITHROMYCIN 500 MG in DEXTROSE 5% 250 ML IV SCH (15:11)
[2021-03-18] MEDS: buPROPion XL 300 MG TABCR PO SCH (22:31)
[2021-03-19] MEDS: HYDROcodone/HOMATROPINE SYRUP 5MG/1.5MG 5ML UDP PO PRN (03:15)
[2021-03-19] MEDS ORDERED: FUROSEMIDE 40 MG/4 ML VIAL IV ONE ×2 (03:49→03:52)
[2021-03-19 04:12] LABS: iSTAT Allen Test Pass; iSTAT Arterial Blood Gas HCO3 30 meg/L (19-24); iSTAT Arterial Blood Gas pCO2 41 mmHg (35-46); iSTAT Arterial Blood Gas pH 7.48 (7.35-7.45); iSTAT Arterial Blood Gas pO2 47 mmHg (80-95); iSTAT Carbon Dioxide 31 mmol/L (24-31); iSTAT FiO2 100 %; iSTAT Site R Radial
[2021-03-19 05:12] LABS: Basophils # (auto) 0.02 K/uL (0-0.2); Basophils % (auto) 0.1 %; Eosinophils # (auto) 0.16 K/uL (0-0.5); Eosinophils % (auto) 0.9 %; Hematocrit (blood only) 34.9 % (42-52); Hemoglobin 11.8 g/dL (14.0-18.0); Immature Granulocytes # (auto) 0.18 K/uL (0.00-0.02); Lymphocytes # (auto) 1.22 K/uL (1.2-3.4); Lymphocytes % (auto) 6.6 %; Mean Corpuscular Hgb Conc 33.8 g/dL (32-36); Mean Corpuscular Volume 88.8 fL (80-100); Mean Platelet Volume 9.9 fL (7.4-10.4); Monocytes # (auto) 2.12 K/uL (0.11-0.59); Monocytes % (auto) 11.4 %; Neutrophils # (auto) 14.85 K/uL (1.4-6.5); Platelet Count 354 K/uL (130-400); RDW Coefficient of Variation 12.7 % (11.5-14.5); RDW Standard Deviation 41.5 fL (36.4-46.3); Red Blood Count 3.93 M/uL (4.7-6.1); White Blood Count 18.55 K/uL (4.8-10.8)
[2021-03-19 05:37] LABS: Alanine Aminotransferase 82 (12-78); Albumin Level 2.1 gm/dl (3.4-5.0); Aspartate Aminotransferase 41 U/L (15-37); BUN Creatinine Ratio 19.5 (10-20); BUN Creatinine Ratio 20.4 (10-20); Blood Urea Nitrogen 19 mg/dl (7-18); Calcium 9.1 mg/dl (8.5-10.1); Calcium 9.2 mg/dl (8.5-10.1); Carbon Dioxide 30 mmol/L (21-32); Chloride 94 mmol/L (98-107); Creatinine Clr Calc Pharmacy 106.4 ml/min; Creatinine Clr Calc Pharmacy 109.7 ml/min; Est GFR (African American) 101.9 ml/min; Est GFR (African American) 98.1 ml/min; Est GFR (Non-African American) 84.6 ml/min; Est GFR (Non-African American) 87.9 ml/min; Glucose 121 mg/dl (70-99); Magnesium 2.1 mg/dl (1.8-2.4); Potassium 3.6 mmol/L (3.5-5.1); Sodium 131 mmol/L (136-145)
[2021-03-19 05:46] LABS: Albumin Globulin Ratio 0.4 (0.9-2); Alkaline Phosphatase 137 U/L (45-117); Bilirubin,Total 1.2 mg/dl (0.2-1); C Reactive Protein 28.5 mg/dl (0-0.29); Globulin 5.3 gm/dl (2.5-4.0); Phosphorus 4.1 mg/dl (2.5-4.9); Total Protein 7.4 gm/dl (6.4-8.2); Troponin I < 0.015 ng/ml (0-0.045)
--- NOTE | 2021-03-19 08:18 | Hospitalist Progress Note ---
Date of Service March 19, 2021 Assessment & Plan Admission and Anticipated Discharge Date Admission Date: March 01, 2021 Subjective Code purple was called as patient oxygen sats dropped into low 80's and 70's. Patient sitting on the BEd . Seems ok. No tachycardia. Mild tachyapnea. Respiratory adjusted bipap settings. His oxygen sats hovered around 81% for sometime and very slowly climbed up and stayed around 88-90%. Patient says he is feeling somewhat better. Regarding intubation he wanted to talk with his . Per Nursing staff wanted to have detailed discussion about intubation with patient with doctors and respiratory therapist involved in discussions.Later his Oxygen sats seemed improved to low 90's. Results & Data Results & Data ([facility]) Vital Signs (Past 12 Hours) Vital Signs Temp Pulse Pulse Pulse Resp BP BP 03/19/21 07:46 74 24 03/19/21 07:23 37.1 C 75 15 106/70 03/19/21 04:15 77 34 H 03/19/21 03:49 74 147/74 H 03/19/21 00:27 80 24 03/18/21 23:00 36.6 C 72 18 92/54 L 03/18/21 22:52 76 03/18/21 22:20 82 36 H 03/18/21 20:15 74 30 H Pulse Ox 03/19/21 07:46 88 L 03/19/21 07:23 93 03/19/21 04:15 89 L 03/19/21 03:49 03/19/21 00:27 94 03/18/21 23:00 96 03/18/21 22:52 03/18/21 22:20 89 L 03/18/21 20:15 94
--- NOTE | 2021-03-19 08:19 | Hospitalist Progress Note ---
Date of Service March 19, 2021 Assessment & Plan Admission and Anticipated Discharge Date Admission Date: March 01, 2021 Subjective Also received a dose of iv lasix 40mg last night during code purle. thanks Results & Data Results & Data ([facility]) Vital Signs (Past 12 Hours) Vital Signs Temp Pulse Pulse Pulse Resp BP BP 03/19/21 07:46 74 24 03/19/21 07:23 37.1 C 75 15 106/70 03/19/21 04:15 77 34 H 03/19/21 03:49 74 147/74 H 03/19/21 00:27 80 24 03/18/21 23:00 36.6 C 72 18 92/54 L 03/18/21 22:52 76 03/18/21 22:20 82 36 H Pulse Ox 03/19/21 07:46 88 L 03/19/21 07:23 93 03/19/21 04:15 89 L 03/19/21 03:49 03/19/21 00:27 94 03/18/21 23:00 96 03/18/21 22:52 03/18/21 22:20 89 L
--- NOTE | 2021-03-19 08:33 | XRay Report ---
XR chest 1V portable CLINICAL HISTORY: hypoxia TECHNIQUE: Single frontal radiograph of the chest was obtained. Comparison: Comparison is made to chest one view 03/18/2021 FINDINGS: No lines and tubes are seen. The cardiomediastinal silhouette is stable. Diffuse airspace opacities a re seen bilaterally, minimally improved from prior exam. No evidence of pleural effusion or pneumotho rax. IMPRESSION: Minimal interval improvement of diffuse airspace opacities bilaterally. ACT 112: Negative or not required by law. Electronically signed by: Marcos Esposito M.D. 03/19/2021 8:31 AM
--- NOTE | 2021-03-19 09:39 | Hospitalist Progress Note ---
Date of Service March 19, 2021 Assessment & Plan (1) Acute hypoxemic respiratory failure: Plan: Acute respiratory failure with hypoxia Multifocal COVID pneumonia COVID Screen: Positive 02/28/21 CTA:No CTA evidence for pulmonary embolus. Extensive groundglass opacities are present throughout both lungs characteristic of a viral type pneumonitis Completed dexamethasone 10 days course Got baricitinib given for 6 days but discontinued due to acute DVTs (03/06/21) Completed 7 days course of abx with cefepime and doxycycline Remdesivir discontinued by pulmonary service CRP had been trending down but trended up in the past few days Started on azithromycin yesterday Worsening respiratory status. Reviewed XRays Patient is on maximum NIV. Discussed with Rehabilitation Program Coordinator Dr Rowland. Patient may be developing fibrosing changes I called patient's on the phone with patient and his RN present and we discussed patient's clinical deterioration. Patient will need to be intubated. Patient and stated they want him intubated. We discussed guarded prognosis/expectations and answered all their questions. Patient confirmed he is ok with mechanical ventilation for up to 2 weeks but would not want any tracheostomy. and daughter on their way to see him Will intubate and move patient to ICU. Rehabilitation Program Coordinator aware Deep venous thrombosis posterior tibial and peroneal veins In the setting of COVID-19 infection, baricitinib use Patient reports family history of blood clots Continue Lovenox 120 mg subcu twice daily Can do NOAC on discharge Mild indirect bilirubinemia, elevated alk phos Resolved Liver ultrasound:The liver is normal in size and echogenicity. Incidental note is made of a small cyst within the liver. Hyponatremia Hypokalemia Sodium 131 today K is 3.6 today Monitor Hold HCTZ for now while on iv lasix as needed Hypertension Continue Amlodipine, Carvedilol Chronic back pain Patient plans to follow up with Neurosurgery as outpatient Mood disorder/PTSD DVT Px: Lovenox SQ Code Status Full code Patient is ok with CPR, intubation/mechanical vent for up to 2 weeks if appropriate Does not want tracheostomy Admission and Anticipated Discharge Date Admission Date: March 01, 2021 Subjective 60 year old man with h/o hypertension, hyperlipidemia, chronic back pain, mood disorder/PTSD, past tobacco abuse who presented with cough and shortness of breath Managed for acute hypoxic respiratory failure due to COVID-19 pneumonia. Completed COVID-19 specific therapies and antibiotics Due to worsening oxygen requirement and worsening infiltrate on XR yesterday, was started on azithromycin Patient had worsening oxygen requirement overnight and barely keeping ox sats at or above 88% Patient seen and examined this morning. Patient is in respiratory distress on BIPAP and not able to talk. Typing out his responses. Hence review of systems not able to be obtained Physical Exam Constitutional: + acute distress, + well hydrated and + obese Eyes: PERRL, conjunctivae normal, anicteric sclerae ENMT: external ear and nose normal, oropharynx normal Respiratory: In respiratory distress with tachypnea/use of accessory muscles, on NIV, diminished breath sounds globally Cardiovascular: Rate/Rhythm: regular rate and regular rhythm S1 S2 Gastrointestinal (Abdomen): normal bowel sounds, soft, nontender, no hepatosplenomegaly Musculoskeletal: no cyanosis or clubbing, extremities motor strength 5/5 Neurologic: PERRL, EOMI, accommodation nl, no face palsy, no dysarthria Results & Data Results & Data ([facility]) Vital Signs (Past 12 Hours) Vital Signs Temp Pulse Pulse Pulse Resp BP BP 03/19/21 07:46 74 24 03/19/21 07:23 37.1 C 75 15 106/70 03/19/21 04:15 77 34 H 03/19/21 03:49 74 147/74 H 03/19/21 00:27 80 24 03/18/21 23:00 36.6 C 72 18 92/54 L 03/18/21 22:52 76 03/18/21 22:20 82 36 H Pulse Ox 03/19/21 07:46 88 L 03/19/21 07:23 93 03/19/21 04:15 89 L 03/19/21 03:49 03/19/21 00:27 94 03/18/21 23:00 96 03/18/21 22:52 03/18/21 22:20 89 L Laboratory Results Abnormal lab results 03/19/21 03/19/21 03/19/21 Range/Units 03:55 04:41 04:41 WBC 18.55 H (4.8-10.8) K/uL RBC 3.93 L (4.7-6.1) M/uL Hgb 11.8 L (14.0-18.0) g/dL Hct 34.9 L (42-52) % Neut # (Auto) 14.85 H (1.4-6.5) K/uL Nelson # (Auto) 2.12 H (0.11-0.59) K/uL Immature Gran # (Auto) 0.18 H (0.00-0.02) K/uL POC pH 7.48 H (7.35-7.45) POC pO2 47 L (80-95) mmHg POC HCO3 30 H (19-24) cheri/L POC Base Excess 7.0 H (-9-1.8) cheri/L POC ABG O2 Sat 85.0 L (90-95) % Sodium 132 L (136-145) mmol/L Chloride 94 L (98-107) mmol/L BUN 19 H (7-18) mg/dl BUN/Creatinine Ratio 20.4 H (10-20) Glucose 121 H (70-99) mg/dl Total Bilirubin (0.2-1) mg/dl AST (15-37) U/L ALT (12-78) Alkaline Phosphatase (45-117) U/L C-Reactive Protein 28.50 H (0-0.29) mg/dl Albumin (3.4-5.0) gm/dl Globulin (2.5-4.0) gm/dl Albumin/Globulin Ratio (0.9-2) 03/19/21 Range/Units 04:41 WBC (4.8-10.8) K/uL RBC (4.7-6.1) M/uL Hgb (14.0-18.0) g/dL Hct (42-52) % Neut # (Auto) (1.4-6.5) K/uL Nelson # (Auto) (0.11-0.59) K/uL Immature Gran # (Auto) (0.00-0.02) K/uL POC pH (7.35-7.45) POC pO2 (80-95) mmHg POC HCO3 (19-24) cheri/L POC Base Excess (-9-1.8) cheri/L POC ABG O2 Sat (90-95) % Sodium 131 L (136-145) mmol/L Chloride 94 L (98-107) mmol/L BUN 19 H (7-18) mg/dl BUN/Creatinine Ratio (10-20) Glucose 121 H (70-99) mg/dl Total Bilirubin 1.2 H (0.2-1) mg/dl AST 41 H (15-37) U/L ALT 82 H (12-78) Alkaline Phosphatase 137 H (45-117) U/L C-Reactive Protein 29.30 H (0-0.29) mg/dl Albumin 2.1 L (3.4-5.0) gm/dl Globulin 5.3 H (2.5-4.0) gm/dl Albumin/Globulin Ratio 0.4 L (0.9-2)
[2021-03-19] MEDS: BENZONATATE 100 MG CAPSULE PO SCH ×3 (10:54→19:26)
[2021-03-19] MEDS: amLODIPine BESYLATE 5 MG TAB PO SCH (10:54)
[2021-03-19] MEDS: carvediloL 6.25 MG TAB PO SCH ×2 (10:54→20:49)
[2021-03-19] MEDS: FLUTICASONE PROPIONATE NA SPR 16 GM BTL SCH (10:55)
[2021-03-19] MEDS: GABAPENTIN 400 MG CAP PO SCH ×3 (10:55→19:27)
[2021-03-19] MEDS: PANTOprazole 40 MG TAB PO SCH (10:55)
[2021-03-19] MEDS: guaiFENesin 600 MG TABCR PO SCH ×2 (10:55→19:27)
[2021-03-19] MEDS: FLUoxetine HCL 20 MG CAP PO SCH (10:55)
[2021-03-19] MEDS: EZETIMIBE 10 MG TABLET PO SCH (10:55)
[2021-03-19] MEDS: propofoL 1,000 MG/100 ML VIAL IV SCH ×4 (11:30→22:18)
[2021-03-19] MEDS ORDERED: PROPOFOL IV EMULSION 10 MG/ML 100 ML VIAL IV ONE (11:40)
[2021-03-19] MEDS: fentaNYL citrate 2,500 MCG/250 ML BAG IV SCH ×2 (11:45→20:50)
[2021-03-19] MEDS ORDERED: ICU PROTOCOL FOR HYPERGLYCEMIA PRN (11:52)
[2021-03-19] MEDS ORDERED: fentaNYL citrate 2,500 MCG/250 ML BAG IV ONE (12:00)
[2021-03-19] MEDS ORDERED: PROPOFOL IV EMULSION 10 MG/ML 20 ML VIAL IV ONE (12:07)
[2021-03-19] MEDS ORDERED: ROCURONIUM BROMIDE 10 MG/ML 5 ML VIAL IV ONE (12:07)
[2021-03-19] MEDS ORDERED: SUCCINYLCHOLINE 100MG/5ML SYR IV ONE (12:07)
--- NOTE | 2021-03-19 12:09 | Anesthesia Procedure Note ---
Anesthesia Procedure Note Arterial Line Note Date of procedure: 03/19/21 Consent: Risk / Benefits Reviewed With: PT / POA / Parent / Guardian, Accepts Plan and Informed Consent Obtained (verbal consent) Monitors attached: Blood Pressure, CO2, EKG and Pulse Oximetry Oxygen delivery method: ETT Time out completed: Yes Premedication: Propofol (mg) (50 mcg/k/min) Laterality: Right Location: Radial Hand hygeine: Alcohol based hand rub Equipment/Supplies: Cap, Mask, Sterile gown, Sterile gloves, Sterile drapes and Sterile procedures used Skin prep: Chloraprep Ultrasound used: No Attempts: 1 Procedure Summary: procedure done by Stephanie EL with my direct supervision. Post-Procedure: Pt hemodynamically stable, Pt tolerates well and No complication Central Line Note Date of procedure: 03/19/21 Indication: Central intravenous access Consent: Risk / Benefits Reviewed With: PT / POA / Parent / Guardian, Accepts Plan and Informed Consent Obtained (verbal consent) Monitors attached: Blood Pressure, CO2, EKG and Pulse Oximetry Oxygen delivery method: ETT Time out completed: Yes Premedication: Propofol (mg) (50mcg/k/min drip) Laterality: Right Location: Internal Jugular Surgical Prep: Hand hygeine: Alcohol based hand rub Equipment/Supplies: Cap, Mask, Sterile gown, Sterile gloves, Sterile drapes and Sterile procedures used Skin prep: Chloraprep Ultrasound Guidance: Ultrasound used: Yes (no picture saved) US equipment and supplies: Sterile Gel and Sterile Probe Cover Central line lumen: Triple Attempts: 1 Procedure Summary: Procedure performed by me personally Post-Procedure: Pt hemodynamically stable Intubation Note Date of procedure: 03/19/21 Indication for intubation: Failure to ventilate, Failure to oxygenate and Respiratory distress Consent: Risk / Benefits Reviewed With: PT / POA / Parent / Guardian, Accepts Plan and Informed Consent Obtained (verbal) Monitors attached: Blood Pressure, CO2, EKG and Pulse Oximetry Time out completed: Yes Premedication: Propofol (mg) (200) Paralytic medication: Succinylcholine (mg) (100) Intubation technique: RSI and Airway suctioned Equipment: Glidescope View: Grade 3 Endotracheal tube: Oral and 8.0 Attempts: 1 Tube placement confirmation: auscultation and Positive CO2 detection Procedure Summary: Intubation performed by R. Jose A KINDERGARTEN TUTOR under my direct supervision Post-procedure: Pt hemodynamically stable, Pt tolerates well and No complication Anesthesia Charges Central Line C1751 Central Venous Catheter Arterial Line A Line Charges: 42581 Insert Art line Stephie/Rod/[place]
--- NOTE | 2021-03-19 12:40 | XRay Report ---
XR chest 1V portable HISTORY: 60 years-old Male central line placement status post placement of a right IJ central venous catheter COMPARISON: Chest radiograph of same day at 3:23 AM TECHNIQUE: Portable AP view of the chest FINDINGS: Endotracheal tube overlies the midline, 3.8 cm superior to the christie. Enteric tube distal tip projec ts superiorly within the region of the gastric fundus. Cholecystectomy. Right IJ central venous lion ter is noted with distal tip overlying the right atrium. No pneumothorax. Small pleural effusions. Ex tensive bilateral airspace opacities appear stable. Degenerative changes of the shoulders and spine. IMPRESSION: 1. Lines and tubes as above. No pneumothorax. 2. Unchanged extensive bilateral airspace opacities suggestive of multifocal pneumonia. ACT 112: Negative or not required by law. The above report was generated using voice recognition software. It may contain grammatical, syntax o r spelling errors. Electronically signed by: Omer Coto M.D. 03/19/2021 12:39 PM
[2021-03-19] MEDS ORDERED: STAT IV Infusion **Titration per Protocol STA ×3 (12:41→13:05)
[2021-03-19] MEDS ORDERED: PROPOFOL BOLUS FROM BAG IV PRN (12:41)
[2021-03-19] MEDS: CISATRACURIUM BESYLATE 40 MG in 0.9 % SODIUM CHLORIDE 80 ML IV SCH ×3 (12:58→21:14)
[2021-03-19] MEDS ORDERED: NOREPINEPHRINE/D5W 8 MG/508 ML IV ONE (13:04)
[2021-03-19] MEDS ORDERED: VECURONIUM BROMIDE 10 MG VIAL IV ONE (13:04)
[2021-03-19] MEDS ORDERED: VECURONIUM BROMIDE 10 MG VIAL IV STA (13:14)
[2021-03-19] MEDS ORDERED: VECURONIUM BROMIDE 10 MG in 0.9 % SODIUM CHLORIDE 100 ML IV SCH (13:15)
[2021-03-19] MEDS: ENOXAPARIN INJ 120 MG/0.8 ML SYR SQ SCH ×2 (13:28→20:49)
[2021-03-19 14:37] LABS: iSTAT Arterial Blood Gas HCO3 34 meg/L (19-24); iSTAT Arterial Blood Gas pCO2 65 mmHg (35-46); iSTAT Arterial Blood Gas pH 7.33 (7.35-7.45); iSTAT Arterial Blood Gas pO2 89 mmHg (80-95); iSTAT Carbon Dioxide 36 mmol/L (24-31); iSTAT FiO2 100 %; iSTAT Site Art Line
[2021-03-19] MEDS: ARTIFICIAL TEARS OP OINT 3.5 GM TUBE OP SCH ×7 (17:08→22:10)
[2021-03-19] MEDS: FUROSEMIDE INJ 20 MG/2 ML VIAL IV SCH (17:08)
[2021-03-19] MEDS: dexAMETHasone 20 MG in DEXTROSE 5% 25 ML IV SCH (17:15)
[2021-03-19] MEDS: AZITHROMYCIN 500 MG in DEXTROSE 5% 250 ML IV SCH (17:59)
--- NOTE | 2021-03-19 19:19 | Critical Care Consultation ---
Date of Consultation March 19, 2021 Assessment & Plan (1) ARDS (adult respiratory distress syndrome): (2) Acute hypoxemic respiratory failure: (3) Pneumonia due to COVID-19 virus: -- VDRF with acute hypoxic respiratory failure Secondary to multilobar COVID-19 pneumonia COVID-19 PCR positive Started on azithromycin on 03/18/2021 Patient has completed 7 days of cefepime and doxycycline He has completed 10 days of dexamethasone He did get 6 days of baricitinib which was discontinued due to acute DVTs on 03/06/2021 Continue with lung protective ventilation High PEEP, low tidal volume to keep Plateau < 30 with permissive hypercapnea if need be. Monitor ABGs Continue with ventilatory support --DVTs Continue with therapeutic Lovenox --Mood disorder with PTSD --history of hypertension --History of chronic low back pain --Prophylaxis VTE: Therapeutic Lovenox GI: Protonix twice daily Lines: Right IJ, right radial, positive Hernandez Diet: N.p.o. Plan: We will paralyzed in prone the patient Patient chest x-ray does seem to have show fibrosis given the prolonged course We will still give late dose DEXA ARDS along with Protonix Patient does have very stiff lungs which was evident by increased plateau with even PEEP of 12. Permissive hypercapnia Monitor ABGs We will continue with blood pressure medications for the time being. I have personally spent 58 minutes of critical care time in the direct management of this patient. This is a life/limb threatening event. This includes time spent evaluating patient, direct bedside care, chart review, placing orders, interpretation of diagnostic studies, discussion with consultants, patient, and family members, as well as other required patient management activities. This time is exclusive of all separately billable procedures, and teaching time and separate from and in addition to any other critical care service time. Please note the above document was generated using voice recognition software. It may contain grammatical, syntax or spelling errors. History of Present Illness Attending Physician: Jennifer Paris MD History of Present Illness 60-year-old male who has been in the hospital since 03/01/2021 for COVID-19 pneumonia He was not vaccinated. He was given taken off isolation and was on the floor On the floor since the last couple of days he was getting progressively worse He was on 100% BiPAP not doing well and ultimately plan to intubate was made Patient was intubated by anesthesia At the time of examination patient was bucking the vent. 8 mg of rocuronium was given to the patient and Nimbex was started Propofol and fentanyl were also started to keep the patient sedated Rest of the history obtained from hospitalist and previous notes Allergies Allergy/AdvReac Type Severity Reaction Status Date / Time lisinopril Allergy Intermediate Angioedema Verified 02/28/21 21:58 pentazocine [From [facility]] AdvReac Mild Vomiting Verified 02/28/21 21:58 Home Medications Medication Instructions Recorded Confirmed Type amlodipine 5 mg tablet (Norvasc) 5 mg PO QAM 01/14/21 02/28/21 History bupropion HCl 300 mg 24 hr tablet, 300 mg PO PM 01/14/21 02/28/21 History extended release carvedilol 6.25 mg tablet 6.25 mg PO BID 01/14/21 02/28/21 History cholecalciferol (vitamin D3) 25 25 mcg PO HS 01/14/21 02/28/21 History mcg (1,000 unit) capsule cyanocobalamin (vitamin B-12) 1,000 mcg PO HS 01/14/21 02/28/21 History 1,000 mcg capsule ezetimibe 10 mg tablet 10 mg PO QAM 01/14/21 02/28/21 History fluoxetine 40 mg capsule (Prozac) 40 mg PO QAM 01/14/21 02/28/21 History fluticasone propionate 50 2 spray INTRANASAL DAILY 01/14/21 02/28/21 History mcg/actuation nasal spray,suspension (Children's Flonase Allergy Relief) gabapentin 400 mg capsule 400 mg PO TID 01/14/21 02/28/21 History hydrochlorothiazide 25 mg tablet 25 mg PO QAM 01/14/21 02/28/21 History ketoconazole 2 % shampoo 1 applic TOPICAL Q14D 01/14/21 02/28/21 History lansoprazole 30 mg capsule,delayed 30 mg PO BID 01/14/21 02/28/21 History release hydrocodone bitartrate 10 mg 10 mg PO Q12H PRN 01/15/21 02/28/21 History capsule, oral only, extended rel 12 hr ibuprofen 200 mg tablet (Motrin IB) 200 mg PO Q6H PRN 01/15/21 02/28/21 History pseudoephedrine HCl 120 mg 120 mg PO Q12H PRN 01/15/21 02/28/21 History tablet,extended release (Sudafed 12 Hour) Patient History Medical History Acoustic neuroma Left ear Anxiety 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 intermittent migraines Depression GERD (gastroesophageal reflux disease) Herniated disc Lumbar/cervical > partially limitation cervical ROM per pt Hyperlipidemia Hypertension Obesity Osteoarthritis PTSD (post-traumatic stress disorder) Hx PTSD (work-related) Sleep apnea No device Spinal stenosis Surgical History H/O colonoscopy H/O excision of dermoid cyst H/O knee surgery Left x1, right x2 H/O shoulder surgery Right x2 History of anesthesia reaction Difficulty with anesthesia induction with prior colonoscopies per pt History of carpal tunnel release R/L History of esophagogastroduodenoscopy (EGD) + dilation History of tooth extraction Hx laparoscopic cholecystectomy (02/01/21) Laparoscopic cholecystectomy Dr. Lorenzo 02/01/2021 Family History Mother Colorectal cancer Father Diabetes Hypertension Social History Smoking Status: Never smoker Second Hand Exposure: No; Hx Alcohol Use: Yes Alcohol type: beer and hard liquor Hx Substance Use: No Preferred Language: Lithuanian Communication Ability: Effective Regional Business Manager Required: No Beliefs That Will Affect Care: None marital status: Current Living Situation: Spouse current occupational status: employed and retired How many Children do You have: 2 Other Information That Helps Us Care for You: No Feels Safe at Home: Yes Safety Concerns: Feels Safe At This Time during the past year weight has: remained stable Assistive Devices: BiPap Review of Systems Review of Systems: Unobtainable due to endotracheal tube Physical Exam Physical Exam: Constitutional: No acute distress HEENT: PERRLA Respiratory system: Decreased entry bilaterally, no wheeze, no rhonchi, positive crackles bilaterally CVS: S1-S2 positive, no murmurs or gallops Abdomen: Soft, nontender, nondistended, positive bowel sounds x4, obese Extremities: +2 pulses bilaterally radialis/ dorsalis pedis, no cyanosis, no edema Neuro: Sedated, breathing over the vent Psych: Unable to assess G/U: Positive Hernandez Skin: no rashes, warm and dry Lymphatic: no cervical or axillary lymphadenopathy Results & Data Results & Data ([facility]) Vital Signs (Past 12 Hours) Vital Signs Temp Pulse Pulse Resp BP BP Pulse Ox 03/19/21 18:44 37 C 64 26 H 128/83 03/19/21 18:30 36.6 C 64 23 91 03/19/21 18:00 36.7 C 64 23 91 03/19/21 17:30 36.7 C 67 26 H 90 03/19/21 17:00 36.7 C 67 30 H 87 L 03/19/21 16:34 64 03/19/21 16:30 36.7 C 64 26 H 88 L 03/19/21 16:00 36.9 C 65 26 H 87 L 03/19/21 15:30 37.0 C 65 26 H 87 L 03/19/21 15:00 37.3 C 65 26 H 88 L 03/19/21 14:35 65 26 H 92 03/19/21 14:30 37.5 C 64 26 H 91 03/19/21 14:00 37.7 C H 67 26 H 93 03/19/21 13:30 66 22 93 03/19/21 13:00 65 20 86 L 03/19/21 12:30 37 C 71 28 H 03/19/21 12:00 88 19 90 03/19/21 11:30 77 37 H 89 L 03/19/21 11:20 83 23 90 03/19/21 11:00 79 33 H 88 L 03/19/21 10:56 78 39 H 89 L 03/19/21 07:46 74 24 88 L 03/19/21 07:23 37.1 C 75 15 106/70 93 Laboratory Results 03/19/21 04:41 03/19/21 04:41 Coding Level of Care Code Critical Care 1st 30-74 mins Diagnoses ARDS (adult respiratory distress syndrome) J80 Acute hypoxemic respiratory failure J96.01 Pneumonia due to COVID-19 virus U07.1; J12.82 Time Spent (min) 58
[2021-03-19] MEDS: buPROPion XL 300 MG TABCR PO SCH (19:27)
[2021-03-19] MEDS: PANTOprazole 40 MG in SYRINGE 0 ML IV SCH (20:48)
[2021-03-20] MEDS: CISATRACURIUM BESYLATE 40 MG in 0.9 % SODIUM CHLORIDE 80 ML IV SCH ×9 (00:05→23:38)
[2021-03-20] MEDS: ARTIFICIAL TEARS OP OINT 3.5 GM TUBE OP SCH ×12 (01:20→20:12)
[2021-03-20] MEDS: propofoL 1,000 MG/100 ML VIAL IV SCH ×7 (02:03→23:39)
[2021-03-20 04:23] LABS: iSTAT Art Bld Gas pCO2 Correct 77 mmHg (35-46); iSTAT Art Bld Gas pH Corrected 7.293 (7.35-7.45); iSTAT Arterial Blood Gas HCO3 37 meg/L (19-24); iSTAT Arterial Blood Gas pCO2 79 mmHg (35-46); iSTAT Arterial Blood Gas pH 7.28 (7.35-7.45); iSTAT Arterial Blood Gas pO2 94 mmHg (80-95); iSTAT Arterial Blood Gas pO2 C 90; iSTAT Carbon Dioxide > 40 mmol/L (24-31); iSTAT FiO2 10 %; iSTAT Hematocrit 31 % (42-52); iSTAT Hemoglobin 10.5 g/dl (14.0-18.0); iSTAT Potassium 4.5 mmol/L (3.3-5.0); iSTAT Site Art Line; iSTAT Sodium 134 mmol/L (135-144)
[2021-03-20 04:56] LABS: Hematocrit (blood only) 27.9 % (42-52); Hemoglobin 8.9 g/dL (14.0-18.0); Mean Corpuscular Hemoglobin 29.2 pg (25-34); Mean Corpuscular Hgb Conc 31.9 g/dL (32-36); Mean Corpuscular Volume 91.5 fL (80-100); Mean Platelet Volume 9.5 fL (7.4-10.4); Platelet Count 241 K/uL (130-400); RDW Coefficient of Variation 12.6 % (11.5-14.5); RDW Standard Deviation 42.7 fL (36.4-46.3); Red Blood Count 3.05 M/uL (4.7-6.1); White Blood Count 9.29 K/uL (4.8-10.8)
[2021-03-20 05:12] LABS: BUN Creatinine Ratio 39.2 (10-20); C Reactive Protein 18.6 mg/dl (0-0.29); Calcium 6.9 mg/dl (8.5-10.1); Creatinine Clr Calc Pharmacy 208.5 ml/min; Est GFR (African American) 138.5 ml/min; Est GFR (Non-African American) 119.5 ml/min; Magnesium 2.1 mg/dl (1.8-2.4); Phosphorus 4.2 mg/dl (2.5-4.9); Potassium 3.5 mmol/L (3.5-5.1)
[2021-03-20] MEDS: POTASSIUM CHLORIDE / WTR 20 MEQ/100 ML PLCT IV SCH ×2 (08:34→10:08)
[2021-03-20] MEDS: carvediloL 6.25 MG TAB PO SCH ×2 (08:35→19:27)
[2021-03-20] MEDS: FUROSEMIDE 40 MG/4 ML VIAL IV SCH (08:35)
[2021-03-20] MEDS: FLUoxetine HCL 20 MG CAP PO SCH (08:35)
[2021-03-20] MEDS: FLUTICASONE PROPIONATE NA SPR 16 GM BTL SCH (08:35)
[2021-03-20] MEDS: dexAMETHasone 20 MG in DEXTROSE 5% 25 ML IV SCH (08:35)
[2021-03-20] MEDS: guaiFENesin 600 MG TABCR PO SCH ×2 (08:36→19:22)
[2021-03-20] MEDS: BENZONATATE 100 MG CAPSULE PO SCH ×3 (08:36→19:22)
[2021-03-20] MEDS: GABAPENTIN 400 MG CAP PO SCH ×3 (08:36→19:22)
[2021-03-20] MEDS: PANTOprazole 40 MG in SYRINGE 0 ML IV SCH ×2 (08:36→20:11)
[2021-03-20] MEDS: amLODIPine BESYLATE 5 MG TAB PO SCH (10:08)
[2021-03-20] MEDS: fentaNYL citrate 2,500 MCG/250 ML BAG IV SCH ×2 (10:08→22:14)
[2021-03-20] MEDS: EZETIMIBE 10 MG TABLET PO SCH (10:09)
[2021-03-20 11:07] LABS: Hematocrit (blood only) 32.2 % (42-52); Hemoglobin 10.4 g/dL (14.0-18.0)
--- NOTE | 2021-03-20 12:27 | XRay Report ---
XR chest 1V portable CLINICAL HISTORY: placed from prone to supine TECHNIQUE: Single frontal radiograph of the chest was obtained. Comparison: Comparison is made to chest one view 03/19/2021 FINDINGS: Lines and tubes are stable. The cardiomediastinal silhouette is obscured. Multifocal airspace opaciti es are seen. No evidence of pleural effusion or pneumothorax. IMPRESSION: Multifocal airspace opacities may represent atelectasis, pneumonia, and/or aspiration. This is essent ially unchanged from prior exam allowing for larger lung volumes on today's exam. ACT 112: Negative or not required by law. Electronically signed by: Marcos Esposito M.D. 03/20/2021 12:26 PM
[2021-03-20 12:28] LABS: iSTAT Art Bld Gas pCO2 Correct 66 mmHg (35-46); iSTAT Arterial Blood Gas HCO3 38 meg/L (19-24); iSTAT Arterial Blood Gas pCO2 69 mmHg (35-46); iSTAT Arterial Blood Gas pH 7.34 (7.35-7.45); iSTAT Arterial Blood Gas pO2 71 mmHg (80-95); iSTAT Arterial Blood Gas pO2 C 66; iSTAT Carbon Dioxide > 40 mmol/L (24-31); iSTAT FiO2 80 %; iSTAT Hematocrit 29 % (42-52); iSTAT Hemoglobin 9.9 g/dl (14.0-18.0); iSTAT Potassium 4.9 mmol/L (3.3-5.0); iSTAT Site Art Line; iSTAT Sodium 135 mmol/L (135-144)
--- NOTE | 2021-03-20 14:01 | Hospitalist Progress Note ---
Date of Service March 20, 2021 Assessment & Plan (1) Acute hypoxemic respiratory failure: Plan: Acute respiratory failure with hypoxia Multifocal COVID pneumonia COVID Screen: Positive 02/28/21 CTA:No CTA evidence for pulmonary embolus. Extensive groundglass opacities are present throughout both lungs characteristic of a viral type pneumonitis Completed dexamethasone 10 days course Got baricitinib given for 6 days but discontinued due to acute DVTs (03/06/21) Completed 7 days course of abx with cefepime and doxycycline Remdesivir discontinued by pulmonary service Was on HFNC and with worsening resp status, was put on NIV and subsequently intubated on 03/19/21 Finishing Inspector on board with vent/sedation management Continue azithromycin Concern for developing fibrosis Dexamethasone was resumed by Finishing Inspector Deep venous thrombosis posterior tibial and peroneal veins In the setting of COVID-19 infection, baricitinib use Patient reports family history of blood clots Continue Lovenox 120 mg subcu twice daily Can do NOAC on discharge Mild indirect bilirubinemia, elevated alk phos Resolved Liver ultrasound:The liver is normal in size and echogenicity. Incidental note is made of a small cyst within the liver. Hyponatremia Hypokalemia Sodium 135 today K is 4.9 today Monitor Hold HCTZ for now while on iv lasix Hypertension Continue Amlodipine, Carvedilol Chronic back pain Patient plans to follow up with Neurosurgery as outpatient Mood disorder/PTSD DVT Px: Lovenox SQ Code Status Full code Patient is ok with CPR, intubation/mechanical vent for up to 2 weeks if appropriate Does not want tracheostomy Admission and Anticipated Discharge Date Admission Date: March 01, 2021 Subjective 60 year old man with h/o hypertension, hyperlipidemia, chronic back pain, mood disorder/PTSD, past tobacco abuse who presented with cough and shortness of breath Managed for acute hypoxic respiratory failure due to COVID-19 pneumonia. Completed COVID-19 specific therapies and antibiotics Was started on azithromycin for worsening oxygen requirement Intubated on 03/19/21 Currently sedated and paralyzed Review of Systems Review of Systems: Unobtainable due to endotracheal tube Physical Exam Constitutional: Intubated and sedated ENMT: ETT in situ Respiratory: Intubated, diminished breath sounds globally Cardiovascular: Rate/Rhythm: regular rate and regular rhythm S1 S2 Gastrointestinal (Abdomen): normal bowel sounds, soft, nontender, no hepatosplenomegaly Musculoskeletal: No pedal edema Neurologic: Intubated, sedated and paralyzed Genitourinary: Hernandez in situ Results & Data Results & Data ([facility]) Vital Signs (Past 12 Hours) Vital Signs Temp Pulse Resp Pulse Ox 03/20/21 12:00 35.9 C L 50 L 33 H 92 03/20/21 11:00 35.9 C L 53 L 32 H 90 03/20/21 10:00 35.8 C L 52 L 32 H 92 03/20/21 09:00 35.8 C L 52 L 34 H 91 03/20/21 08:08 52 L 32 H 94 03/20/21 08:00 35.9 C L 53 L 32 H 94 03/20/21 07:00 36.0 C L 54 L 32 H 94 03/20/21 06:00 36.0 C L 53 L 32 H 94 03/20/21 05:00 36.1 C L 54 L 32 H 91 03/20/21 04:00 36.2 C L 56 L 32 H 91 03/20/21 03:00 36.3 C L 57 L 32 H 94 03/20/21 02:51 55 L 32 H 93 Laboratory Results Hgb 10.4 g/dL (14.0-18.0) L 03/20/21 10:59 Hct 32.2 % (42-52) L 03/20/21 10:59
[2021-03-20] MEDS: ENOXAPARIN INJ 120 MG/0.8 ML SYR SQ SCH ×2 (15:29→20:10)
[2021-03-20] MEDS: AZITHROMYCIN 500 MG in DEXTROSE 5% 250 ML IV SCH (16:00)
--- NOTE | 2021-03-20 17:58 | Critical Care Progress Note ---
Date of Service March 20, 2021 Assessment & Plan (1) ARDS (adult respiratory distress syndrome): (2) Acute hypoxemic respiratory failure: (3) Pneumonia due to COVID-19 virus: Plan: -- VDRF with acute hypoxic respiratory failure Secondary to multilobar COVID-19 pneumonia Patient has very noncompliant lungs. COVID-19 PCR positive Started on azithromycin on 03/18/2021 Patient has completed 7 days of cefepime and doxycycline He has completed 10 days of dexamethasone He did get 6 days of baricitinib which was discontinued due to acute DVTs on 03/06/2021 Continue with lung protective ventilation High PEEP, low tidal volume to keep Plateau < 30 with permissive hypercapnea if need be. Monitor ABGs Continue with ventilatory support --DVTs Continue with therapeutic Lovenox --History of hypertension Continue to hold blood pressure medications --History of chronic low back pain --Mood disorder with PTSD --Prognosis guarded --Prophylaxis VTE: Therapeutic Lovenox GI: Protonix twice daily Lines: Right IJ, right radial, positive Hernandez Diet: N.p.o. Plan: In/out: +48, urine output 1550 AB.28/79/94 on PEEP of 10, 350 tidal volume 100% When I was in the room the plateau pressure of the patient was high. I had to go down on the PEEP to 6. I increased the respiratory to 33 and went down to the tidal volume 340. Plateau was able to be brought down to 32 Patient has very stiff lungs which usually goes with fibrosis. Patient had a drop in hemoglobin on the morning labs. Repeat hemoglobin was back to with the previous one. We will continue with therapeutic Lovenox I have increased the patient's Lasix to 40 mg Potassium being replaced Patient's family was at bedside and I personally briefed them about the patient's current critical condition. All questions queries were answered in depth I have personally spent 42 minutes of critical care time in the direct management of this patient. This is a life/limb threatening event. This includes time spent evaluating patient, direct bedside care, chart review, placing orders, interpretation of diagnostic studies, discussion with consultants, patient, and family members, as well as other required patient management activities. This time is exclusive of all separately billable procedures, and teaching time and separate from and in addition to any other critical care service time. Please note the above document was generated using voice recognition software. It may contain grammatical, syntax or spelling errors. Admission and Anticipated Discharge Date Admission Date: March 01, 2021 Subjective Patient seen and family bedside. No acute distress, no adverse events overnight. Patient was made supine early in the morning We were able to successfully go down on the FiO2 to 80%. Patient is on propofol and fentanyl for sedation. Review of Systems Review of Systems: Unobtainable due to endotracheal tube Physical Exam Physical Exam: Constitutional: No acute distress HEENT: PERRLA, positive ETT Respiratory system: Decreased entry bilaterally, no wheeze, no rhonchi, positive crackles bilaterally CVS: S1-S2 positive, no murmurs or gallops Abdomen: Soft, nontender, nondistended, positive bowel sounds x4, obese Extremities: +2 pulses bilaterally radialis/ dorsalis pedis, no cyanosis, no edema Neuro: Paralyzed and sedated Psych: Unable to assess G/U: Positive Hernandez Skin: no rashes, warm and dry Lymphatic: no cervical or axillary lymphadenopathy Results & Data Results & Data ([facility]) Vital Signs (Past 12 Hours) Vital Signs Temp Pulse Resp Pulse Ox 03/20/21 17:00 36.0 C L 54 L 33 H 89 L 03/20/21 16:36 54 L 33 H 90 03/20/21 16:00 36.0 C L 52 L 33 H 91 03/20/21 15:00 36.0 C L 51 L 33 H 91 03/20/21 14:00 35.9 C L 52 L 29 H 92 03/20/21 13:00 35.9 C L 51 L 29 H 90 03/20/21 12:06 50 L 33 H 92 03/20/21 12:00 35.9 C L 50 L 33 H 92 03/20/21 11:00 35.9 C L 53 L 32 H 90 03/20/21 10:00 35.8 C L 52 L 32 H 92 03/20/21 09:00 35.8 C L 52 L 34 H 91 03/20/21 08:08 52 L 32 H 94 03/20/21 08:00 35.9 C L 53 L 32 H 94 03/20/21 07:00 36.0 C L 54 L 32 H 94 03/20/21 06:00 36.0 C L 53 L 32 H 94 Laboratory Results 03/20/21 10:59 03/20/21 04:25 Coding Level of Care Code Critical Care 1st 30-74 mins Diagnoses ARDS (adult respiratory distress syndrome) J80 Acute hypoxemic respiratory failure J96.01 Pneumonia due to COVID-19 virus U07.1; J12.82 Time Spent (min) 42
[2021-03-20] MEDS: ICU ELECTROLYTE REPLACEMENT PROTOCOL SCH (17:59)
[2021-03-20] MEDS: buPROPion XL 300 MG TABCR PO SCH (19:22)
[2021-03-21] MEDS: ARTIFICIAL TEARS OP OINT 3.5 GM TUBE OP SCH ×12 (01:02→23:51)
[2021-03-21] MEDS: CISATRACURIUM BESYLATE 40 MG in 0.9 % SODIUM CHLORIDE 80 ML IV SCH ×13 (01:55→23:51)
[2021-03-21] MEDS: propofoL 1,000 MG/100 ML VIAL IV SCH ×10 (03:50→23:04)
[2021-03-21 04:00] LABS: iSTAT Art Bld Gas pCO2 Correct 75 mmHg (35-46); iSTAT Art Bld Gas pH Corrected 7.335 (7.35-7.45); iSTAT Arterial Blood Gas HCO3 40 meg/L (19-24); iSTAT Arterial Blood Gas pCO2 76 mmHg (35-46); iSTAT Arterial Blood Gas pH 7.33 (7.35-7.45); iSTAT Arterial Blood Gas pO2 83 mmHg (80-95); iSTAT Arterial Blood Gas pO2 C 81; iSTAT Carbon Dioxide > 40 mmol/L (24-31); iSTAT FiO2 65 %; iSTAT Hematocrit 35 % (42-52); iSTAT Hemoglobin 11.9 g/dl (14.0-18.0); iSTAT Potassium 4.6 mmol/L (3.3-5.0); iSTAT Site Art Line; iSTAT Sodium 137 mmol/L (135-144)
[2021-03-21 04:40] LABS: Basophils # (auto) 0.01 K/uL (0-0.2); Basophils % (auto) 0.1 %; Hematocrit (blood only) 29.8 % (42-52); Hemoglobin 9.4 g/dL (14.0-18.0); Immature Granulocytes # (auto) 0.09 K/uL (0.00-0.02); Immature Granulocytes % (auto) 0.7 %; Lymphocytes # (auto) 1.15 K/uL (1.2-3.4); Lymphocytes % (auto) 8.5 %; Mean Corpuscular Hemoglobin 29.5 pg (25-34); Mean Corpuscular Hgb Conc 31.5 g/dL (32-36); Mean Corpuscular Volume 93.4 fL (80-100); Mean Platelet Volume 9.6 fL (7.4-10.4); Monocytes # (auto) 1.81 K/uL (0.11-0.59); Monocytes % (auto) 13.4 %; Neutrophils # (auto) 10.41 K/uL (1.4-6.5); Neutrophils % (auto) 77.3 %; Platelet Count 303 K/uL (130-400); RDW Coefficient of Variation 12.4 % (11.5-14.5); RDW Standard Deviation 42.3 fL (36.4-46.3); Red Blood Count 3.19 M/uL (4.7-6.1); White Blood Count 13.47 K/uL (4.8-10.8)
[2021-03-21 05:19] LABS: BUN Creatinine Ratio 42.2 (10-20); Calcium 7.6 mg/dl (8.5-10.1); Creatinine Clr Calc Pharmacy 197.4 ml/min; Est GFR (African American) 135.2 ml/min; Est GFR (Non-African American) 116.6 ml/min; Magnesium 2.2 mg/dl (1.8-2.4); Potassium 3.8 mmol/L (3.5-5.1)
[2021-03-21] MEDS: ICU ELECTROLYTE REPLACEMENT PROTOCOL SCH ×2 (06:12→18:10)
[2021-03-21 07:25] LABS: Phosphorus 3.3 mg/dl (2.5-4.9)
[2021-03-21] MEDS: BENZONATATE 100 MG CAPSULE PO SCH ×3 (08:02→19:49)
[2021-03-21] MEDS: FLUoxetine HCL 20 MG CAP PO SCH (08:02)
[2021-03-21] MEDS: GABAPENTIN 400 MG CAP PO SCH ×3 (08:02→19:50)
[2021-03-21] MEDS: EZETIMIBE 10 MG TABLET PO SCH (08:02)
[2021-03-21] MEDS: FLUTICASONE PROPIONATE NA SPR 16 GM BTL SCH (08:02)
[2021-03-21] MEDS: FUROSEMIDE 40 MG/4 ML VIAL IV SCH (08:02)
[2021-03-21] MEDS: PANTOprazole 40 MG in SYRINGE 0 ML IV SCH ×2 (08:03→20:19)
[2021-03-21] MEDS: guaiFENesin 600 MG TABCR PO SCH (08:03)
[2021-03-21] MEDS: dexAMETHasone 20 MG in DEXTROSE 5% 25 ML IV SCH (08:05)
[2021-03-21] MEDS: carvediloL 6.25 MG TAB PO SCH (08:06)
[2021-03-21] MEDS: amLODIPine BESYLATE 5 MG TAB PO SCH (08:07)
[2021-03-21] MEDS: ENOXAPARIN INJ 120 MG/0.8 ML SYR SQ SCH ×2 (10:25→20:19)
[2021-03-21] MEDS: fentaNYL citrate 2,500 MCG/250 ML BAG IV SCH ×2 (10:27→20:19)
[2021-03-21] MEDS ORDERED: NOREPINEPHRINE/D5W 8 MG/508 ML IV ONE (11:46)
[2021-03-21] MEDS ORDERED: STAT IV Infusion **Titration per Protocol STA ×2 (11:49→15:23)
[2021-03-21] MEDS ORDERED: NOREPINEPHRINE/D5W 8 MG/508 ML BAG IV SCH (12:00)
--- NOTE | 2021-03-21 12:09 | XRay Report ---
XR chest 1V portable CLINICAL HISTORY: Follow-up bilateral alveolar opacities. COMPARISON STUDY: 03/20/2021 TECHNIQUE: 1 supine view of the chest FINDINGS: Single frontal view of the chest demonstrates the heart to be enlarged. Tubes and catheters are uncha nged. Compared to the previous examination, extensive interstitial and alveolar opacities are again s een bilaterally. There is also blunting left costophrenic angle characteristic of a small pleural eff usion. There is no evidence for vascular congestion. There is no acute osseous pathology. IMPRESSION: Extensive interstitial and alveolar opacities are again seen bilaterally which are not si gnificantly changed. There is evidence for left pleural effusion. ACT 112: Negative or not required by law. Electronically signed by: Jose Emerson M.D. 03/21/2021 12:08 PM
--- NOTE | 2021-03-21 13:01 | Hospitalist Progress Note ---
Date of Service March 21, 2021 Assessment & Plan (1) Acute hypoxemic respiratory failure: Plan: Acute respiratory failure with hypoxia Multifocal COVID pneumonia COVID Screen: Positive 02/28/21 CTA:No CTA evidence for pulmonary embolus. Extensive groundglass opacities are present throughout both lungs characteristic of a viral type pneumonitis Completed dexamethasone 10 days course Got baricitinib given for 6 days but discontinued due to acute DVTs (03/06/21) Completed 7 days course of abx with cefepime and doxycycline Remdesivir discontinued by pulmonary service Was on HFNC and with worsening resp status, was put on NIV and subsequently intubated on 03/19/21 Filing Or Registry Clerk on board with vent/sedation management Continue azithromycin Concern for developing fibrosis Dexamethasone was resumed Deep venous thrombosis posterior tibial and peroneal veins In the setting of COVID-19 infection, baricitinib use Patient reports family history of blood clots Continue Lovenox 120 mg subcu twice daily Can do NOAC on discharge Mild indirect bilirubinemia, elevated alk phos Resolved Liver ultrasound:The liver is normal in size and echogenicity. Incidental note is made of a small cyst within the liver. Hyponatremia Hypokalemia Sodium 138 today K is 4 today Monitor Hold HCTZ for now while on iv lasix Hypertension Antihypertensive on hold while on sedation Chronic back pain Patient plans to follow up with Neurosurgery as outpatient Mood disorder/PTSD DVT Px: On Lovenox SQ Code Status Full code Patient is ok with CPR, intubation/mechanical vent for up to 2 weeks if appropriate Does not want tracheostomy Admission and Anticipated Discharge Date Admission Date: March 01, 2021 Subjective 60 year old man with h/o hypertension, hyperlipidemia, chronic back pain, mood disorder/PTSD, past tobacco abuse who presented with cough and shortness of breath Managed for acute hypoxic respiratory failure due to COVID-19 pneumonia. Completed COVID-19 specific therapies and antibiotics Intubated on 03/19/21. Azithromycin started. Dexamethasone resumed Currently sedated Review of Systems Review of Systems: Unobtainable due to endotracheal tube Physical Exam Constitutional: Intubated and sedated ENMT: ETT in situ Respiratory: On ventilator, diminished breath sounds Cardiovascular: Rate/Rhythm: regular rate and regular rhythm S1 S2 Gastrointestinal (Abdomen): normal bowel sounds, soft, nontender, no hepatosplenomegaly Musculoskeletal: No pedal edema Neurologic: Sedated and paralyzed Genitourinary: Hernandez Results & Data Results & Data ([facility]) Vital Signs (Past 12 Hours) Vital Signs Temp Pulse Resp Pulse Ox 03/21/21 11:00 37.0 C 57 L 33 H 88 L 03/21/21 10:00 36.9 C 60 33 H 91 03/21/21 09:00 36.9 C 74 33 H 90 03/21/21 08:35 85 33 H 92 03/21/21 08:00 36.9 C 86 33 H 92 03/21/21 07:00 36.9 C 86 33 H 92 03/21/21 06:00 36.8 C 87 33 H 92 03/21/21 05:00 36.8 C 85 33 H 91 03/21/21 04:00 36.7 C 85 33 H 91 03/21/21 03:18 88 33 H 91 03/21/21 03:00 36.7 C 88 33 H 91 03/21/21 02:00 36.7 C 92 H 33 H 90
[2021-03-21 13:36] LABS: iSTAT Art Bld Gas pCO2 Correct 72 mmHg (35-46); iSTAT Art Bld Gas pH Corrected 7.348 (7.35-7.45); iSTAT Arterial Blood Gas HCO3 40 meg/L (19-24); iSTAT Arterial Blood Gas pCO2 73 mmHg (35-46); iSTAT Arterial Blood Gas pH 7.35 (7.35-7.45); iSTAT Arterial Blood Gas pO2 66 mmHg (80-95); iSTAT Arterial Blood Gas pO2 C 65; iSTAT Carbon Dioxide > 40 mmol/L (24-31); iSTAT FiO2 50 %; iSTAT Hematocrit 33 % (42-52); iSTAT Hemoglobin 11.2 g/dl (14.0-18.0); iSTAT Site Art Line; iSTAT Sodium 138 mmol/L (135-144)
[2021-03-21] MEDS: AZITHROMYCIN 500 MG in DEXTROSE 5% 250 ML IV SCH (14:31)
--- NOTE | 2021-03-21 14:48 | Critical Care Progress Note ---
Date of Service March 21, 2021 Assessment & Plan (1) ARDS (adult respiratory distress syndrome): (2) Acute hypoxemic respiratory failure: (3) Pneumonia due to COVID-19 virus: Plan: -- VDRF with acute hypoxic respiratory failure Secondary to multilobar COVID-19 pneumonia Patient has very noncompliant lungs. COVID-19 PCR positive Started on azithromycin on 03/18/2021 Patient has completed 7 days of cefepime and doxycycline He has completed 10 days of dexamethasone He did get 6 days of baricitinib which was discontinued due to acute DVTs on 03/06/2021 Continue with lung protective ventilation High PEEP, low tidal volume to keep Plateau < 30 with permissive hypercapnea if need be. Monitor ABGs Continue with ventilatory support S/p proning. Last proning was 03/21/2021 --Shock Combination of sepsis plus sedation Continue with vasopressor support to keep MAP greater than 65 --Acute DVTs Continue with therapeutic Lovenox --History of chronic low back pain --Mood disorder with PTSD --Prognosis guarded --Prophylaxis VTE: Therapeutic Lovenox GI: Protonix twice daily Lines: Right IJ, right radial, positive Hernandez Diet: N.p.o. Plan: In/out: -252, urine output 2450 AB.33//83 on 65%, PEEP of 5 At the time of examinations patient to was 33-34. I went down on the respiratory to 24 and increase the tidal volume to 370. It has been 48 hours since patient has been paralyzed. I will try to gradually take the paralysis off. It is very important to make sure the patient is not bucking the vent. If he becomes significantly asynchronous or starts fighting the ventilator I will have to paralyze him again given the severe decrease in compliance Patient's hemoglobin is stable. Continue with therapeutic Lovenox I was present when patient was made supine. No more proning. We will start the patient on tube feeds Patient's Mellissa complained [phone] I have personally spent 41 minutes of critical care time in the direct management of this patient. This is a life/limb threatening event. This includes time spent evaluating patient, direct bedside care, chart review, placing orders, interpretation of diagnostic studies, discussion with consultants, patient, and family members, as well as other required patient management activities. This time is exclusive of all separately billable procedures, and teaching time and separate from and in addition to any other critical care service time. Please note the above document was generated using voice recognition software. It may contain grammatical, syntax or spelling errors. Admission and Anticipated Discharge Date Admission Date: March 01, 2021 Subjective Patient seen and examined at bedside. No acute distress Patient was on 40 of propofol, 175 fentanyl the time of examination He was paralyzed He is suspected was 33. I went down respiratory to 24 and increase his tidal volume to keep the minute ventilation the same Peaks were in the high 30s to low 40s following that. Review of Systems Review of Systems: Unobtainable due to endotracheal tube Physical Exam Physical Exam: Constitutional: No acute distress HEENT: PERRLA, positive ETT Respiratory system: Decreased entry bilaterally, no wheeze, no rhonchi, positive crackles bilaterally CVS: S1-S2 positive, no murmurs or gallops Abdomen: Soft, nontender, nondistended, positive bowel sounds x4, obese Extremities: +2 pulses bilaterally radialis/ dorsalis pedis, no cyanosis, no edema Neuro: Paralyzed and sedated Psych: Unable to assess G/U: Positive Hernandez Skin: no rashes, warm and dry Lymphatic: no cervical or axillary lymphadenopathy Results & Data Results & Data ([facility]) Vital Signs (Past 12 Hours) Vital Signs Temp Pulse Resp Pulse Ox 03/21/21 13:39 89 03/21/21 13:00 36.7 C 63 24 91 03/21/21 12:00 36.8 C 69 33 H 90 03/21/21 11:00 37.0 C 57 L 33 H 88 L 03/21/21 10:52 56 L 33 H 90 03/21/21 10:00 36.9 C 60 33 H 91 03/21/21 09:00 36.9 C 74 33 H 90 03/21/21 08:35 85 33 H 92 03/21/21 08:00 36.9 C 89 33 H 92 03/21/21 07:00 36.9 C 86 33 H 92 03/21/21 06:00 36.8 C 87 33 H 92 03/21/21 05:00 36.8 C 85 33 H 91 03/21/21 04:00 36.7 C 85 33 H 91 12/26/21 03:18 88 33 H 91 03/21/21 03:00 36.7 C 88 33 H 91 Laboratory Results 03/21/21 04:23 03/21/21 04:23 Coding Level of Care Code Critical Care 1st 30-74 mins Diagnoses ARDS (adult respiratory distress syndrome) J80 Acute hypoxemic respiratory failure J96.01 Pneumonia due to COVID-19 virus U07.1; J12.82 Time Spent (min) 41
[2021-03-21] MEDS ORDERED: MIDAZOLAM BOLUS FROM BAG IV PRN (15:23)
[2021-03-21] MEDS ORDERED: MIDAZOLAM HCL 125MG/250ML D5W ONE (15:24)
[2021-03-21] MEDS: MIDAZOLAM HCL 125 MG/250 ML BAG IV SCH (15:27)
[2021-03-21] MEDS: PEPTAMEN INTENSE VHP 1.0 CAL 1,000 ML BAG OG SCH (17:29)
[2021-03-21] MEDS: TUBE FEEDING WATER FLUSH OG SCH ×3 (18:09→23:50)
[2021-03-21] MEDS: buPROPion XL 300 MG TABCR PO SCH (19:50)
[2021-03-21] MEDS: ACETAMINOPHEN 325 MG TAB PO PRN (23:50)
[2021-03-22] MEDS: CISATRACURIUM BESYLATE 40 MG in 0.9 % SODIUM CHLORIDE 80 ML IV SCH ×2 (01:52→05:17)
[2021-03-22] MEDS: ARTIFICIAL TEARS OP OINT 3.5 GM TUBE OP SCH ×10 (01:52→19:21)
[2021-03-22] MEDS: propofoL 1,000 MG/100 ML VIAL IV SCH ×4 (02:50→11:23)
[2021-03-22 03:48] LABS: iSTAT Art Bld Gas pCO2 Correct 67 mmHg (35-46); iSTAT Art Bld Gas pH Corrected 7.357 (7.35-7.45); iSTAT Arterial Blood Gas HCO3 37 meg/L (19-24); iSTAT Arterial Blood Gas pCO2 63 mmHg (35-46); iSTAT Arterial Blood Gas pH 7.38 (7.35-7.45); iSTAT Arterial Blood Gas pO2 62 mmHg (80-95); iSTAT Arterial Blood Gas pO2 C 69; iSTAT Carbon Dioxide 39 mmol/L (24-31); iSTAT FiO2 70 %; iSTAT Hematocrit 33 % (42-52); iSTAT Hemoglobin 11.2 g/dl (14.0-18.0); iSTAT Potassium 4.2 mmol/L (3.3-5.0); iSTAT Site Art Line; iSTAT Sodium 137 mmol/L (135-144)
[2021-03-22] MEDS: ACETAMINOPHEN 325 MG TAB PO PRN (04:02)
[2021-03-22] MEDS: TUBE FEEDING WATER FLUSH OG SCH ×5 (04:03→21:56)
[2021-03-22] MEDS: fentaNYL citrate 2,500 MCG/250 ML BAG IV SCH ×3 (05:03→21:56)
[2021-03-22 05:31] LABS: Hematocrit (blood only) 36.4 % (42-52); Hemoglobin 11.4 g/dL (14.0-18.0); Mean Corpuscular Hemoglobin 29.5 pg (25-34); Mean Corpuscular Hgb Conc 31.3 g/dL (32-36); Mean Corpuscular Volume 94.1 fL (80-100); Mean Platelet Volume 10.3 fL (7.4-10.4); Platelet Count 308 K/uL (130-400); RDW Coefficient of Variation 12.7 % (11.5-14.5); RDW Standard Deviation 43.7 fL (36.4-46.3); Red Blood Count 3.87 M/uL (4.7-6.1); White Blood Count 12.89 K/uL (4.8-10.8)
[2021-03-22 06:04] LABS: BUN Creatinine Ratio 40.3 (10-20); Calcium 9.2 mg/dl (8.5-10.1); Creatinine Clr Calc Pharmacy 121.6 ml/min; Est GFR (African American) 110.8 ml/min; Est GFR (Non-African American) 95.6 ml/min; Magnesium 2.5 mg/dl (1.8-2.4); Phosphorus 3.8 mg/dl (2.5-4.9)
[2021-03-22] MEDS: ICU ELECTROLYTE REPLACEMENT PROTOCOL SCH ×2 (06:06→17:48)
--- NOTE | 2021-03-22 07:53 | XRay Report ---
XR chest 1V portable CLINICAL HISTORY: f/u COMPARISON STUDY: Chest radiograph March 21, 2021. FINDINGS: Tip of endotracheal tube is 3.2 cm above the christie. Nasogastric tube is coiled within the stomach. Tip projects over the gastric cardia. Right internal jugular central line remains in place. Cardiomegaly is unchanged. There are suspected small bilateral pleural effusions. There is no pneumot horax. Cardiomediastinal silhouette is stable. Extensive bilateral airspace opacities are noted. Righ t lung airspace opacity has slightly improved. IMPRESSION: 1. Satisfactory positioning of lines and tubes. 2. Extensive bilateral airspace opacities suggestive of multifocal pneumonia. Slight improvement in r ight lung airspace opacity. 3. Suspected small bilateral pleural effusions. ACT 112: Negative or not required by law. Electronically signed by: Joseph Hurley M.D. 03/22/2021 7:51 AM
[2021-03-22] MEDS: ENOXAPARIN INJ 120 MG/0.8 ML SYR SQ SCH ×2 (07:59→21:57)
[2021-03-22] MEDS: EZETIMIBE 10 MG TABLET PO SCH (08:00)
[2021-03-22] MEDS: FLUTICASONE PROPIONATE NA SPR 16 GM BTL SCH (08:00)
[2021-03-22] MEDS: GABAPENTIN 400 MG CAP PO SCH ×3 (08:00→21:56)
[2021-03-22] MEDS: FUROSEMIDE 40 MG/4 ML VIAL IV SCH (08:00)
[2021-03-22] MEDS: FLUoxetine HCL 20 MG CAP PO SCH (08:00)
[2021-03-22] MEDS: dexAMETHasone 20 MG in DEXTROSE 5% 25 ML IV SCH (08:03)
[2021-03-22] MEDS: PANTOprazole 40 MG in SYRINGE 0 ML IV SCH (08:04)
[2021-03-22] MEDS: BENZONATATE 100 MG CAPSULE PO SCH (08:07)
--- NOTE | 2021-03-22 08:32 | Critical Care Progress Note ---
Date of Service March 22, 2021 Assessment & Plan (1) ARDS (adult respiratory distress syndrome): (2) Acute hypoxemic respiratory failure: (3) Pneumonia due to COVID-19 virus: Plan: Reason Critically Ill: Acute hypoxic respiratory failure secondary to COVID-19 pneumonia PLAN: Neuro: Sedation: Propofol, versed Analgesia: Fentanyl --History of chronic low back pain --Mood disorder with PTSD Resp: -- VDRF with acute hypoxic respiratory failure Secondary to multilobar COVID-19 pneumonia Intubation 03/19: Day 3 Patient has very noncompliant lungs. COVID-19 PCR positive Started on azithromycin on 03/18/2021 Patient has completed 7 days of cefepime and doxycycline He has completed 10 days of dexamethasone He did get 6 days of baricitinib which was discontinued due to acute DVTs on 03/06/2021 Continue with lung protective ventilation High PEEP, low tidal volume to keep Plateau < 30 with permissive hypercapnea if need be. Monitor ABGs Continue with ventilatory support S/p proning. Last proning was 03/21/2021 CV: --Shock Combination of sepsis plus sedation Continue with vasopressor support to keep MAP greater than 65 ID: As per respiratory GI/Nutrition: Tube feeding: Heme: --Acute DVTs Continue with therapeutic Lovenox DVT prophylaxis: Therapeutic Lovenox Endocrine: ICU hyperglycemia protocol Vascular access: Right internal jugular placed 03/18, right radial Code Status: Full Disposition: ICU --Prognosis guarded Patient's Mellissa: [phone] Admission and Anticipated Discharge Date Admission Date: March 01, 2021 Supervising Physician Co-Signing Physician Notes I have personally spent 35 minutes of critical care time in the direct management of this patient. This is a life/limb threatening event. This includes time spent evaluating patient, direct bedside care, chart review, placing orders, interpretation of diagnostic studies, discussion with consultants, patient, and/or family members regarding treatment decisions, as well as other required patient management activities. This time is exclusive of all separately billable procedures, and teaching time and separate from and in addition to any other critical care service time. Subjective No overnight events Review of Systems Review of Systems: Unable to obtain due to endotracheal tube Physical Exam Physical Exam: General: Sedated. nontoxic. Supine position Skin: Warm, dry, Head: Atraumatic Ears, nose, mouth and throat: airway obscured by endotracheal tube Cardiovascular: Normal peripheral perfusion Respiratory: no respiratory distress Gastrointestinal: Non distended Musculoskeletal: No deformity Results & Data Results & Data ([facility]) Vital Signs (Past 12 Hours) Vital Signs Temp Pulse Resp Pulse Ox 03/22/21 06:00 38.2 C H 71 24 90 03/22/21 05:00 38.3 C H 74 23 90 03/22/21 04:00 38.4 C H 73 23 91 03/22/21 03:30 73 25 H 91 03/22/21 03:00 38.3 C H 71 24 90 03/22/21 02:00 38.2 C H 70 23 03/22/21 01:00 38.2 C H 69 28 H 90 03/22/21 00:00 38.1 C H 75 27 H 91 03/21/21 23:20 70 27 H 91 03/21/21 23:00 37.9 C H 67 26 H 92 03/21/21 22:00 37.8 C H 68 25 H 92 03/21/21 21:00 37.6 C H 63 26 H 91 Laboratory Results 03/22/21 03/22/21 03/22/21 Range/Units 04:36 04:36 03:31 WBC 12.89 H (4.8-10.8) K/uL RBC 3.87 L (4.7-6.1) M/uL Hgb 11.4 L (14.0-18.0) g/dL POC Hgb 11.2 L (14.0-18.0) g/dl Hct 36.4 L (42-52) % POC Hct 33 L (42-52) % MCV 94.1 (80-100) fL MCH 29.5 (25-34) pg MCHC 31.3 L (32-36) g/dL RDW Std Deviation 43.7 (36.4-46.3) fL RDW Coeff of Natali 12.7 (11.5-14.5) % Plt Count 308 (130-400) K/uL MPV 10.3 (7.4-10.4) fL Sample Site Art Line POC pH 7.38 (7.35-7.45) POC pCO2 63 H (35-46) mmHg POC pO2 62 L (80-95) mmHg POC HCO3 37 H (19-24) cheri/L POC Total CO2 39 H (24-31) mmol/L POC Base Excess 12.0 H (-9-1.8) cheri/L ABG pH (Temp Correct) 7.357 (7.35-7.45) ABG pCO2 (Temp Corrct 67 H (35-46) mmHg POC ABG pO2 at Pt Temp 69 POC ABG O2 Sat 90.0 (90-95) % Rafa Test NA O2 Delivery Device Ventilator POC O2 Rate 24 Minute Ventilation 9.1 POC FiO2 70 % Tidal Volume 370 PEEP 5 POC Sodium 137 (135-144) mmol/L Sodium 135 L (136-145) mmol/L POC Potassium 4.2 (3.3-5.0) mmol/L Potassium 4.0 (3.5-5.1) mmol/L Chloride 98 (98-107) mmol/L Carbon Dioxide 33 H (21-32) mmol/L Anion Gap 4.0 (3-11) BUN 35 H D (7-18) mg/dl Creatinine 0.86 D (0.6-1.4) mg/dl Est Cr Clr Drug Dosing 121.6 ml/min Est GFR ( Amer) 110.8 ml/min Est GFR (Non-Af Amer) 95.6 ml/min BUN/Creatinine Ratio 40.3 H (10-20) Glucose 97 (70-99) mg/dl POC Glucose (70-99) mg/dl Calcium 9.2 D (8.5-10.1) mg/dl Phosphorus 3.8 (2.5-4.9) mg/dl Magnesium 2.5 H (1.8-2.4) mg/dl 03/21/21 03/21/21 03/21/21 Range/Units 23:53 17:35 13:20 WBC (4.8-10.8) K/uL RBC (4.7-6.1) M/uL Hgb (14.0-18.0) g/dL POC Hgb 11.2 L (14.0-18.0) g/dl Hct (42-52) % POC Hct 33 L (42-52) % MCV (80-100) fL MCH (25-34) pg MCHC (32-36) g/dL RDW Std Deviation (36.4-46.3) fL RDW Coeff of Natali (11.5-14.5) % Plt Count (130-400) K/uL MPV (7.4-10.4) fL Sample Site Art Line POC pH 7.35 (7.35-7.45) POC pCO2 73 H (35-46) mmHg POC pO2 66 L (80-95) mmHg POC HCO3 40 H (19-24) cheri/L POC Total CO2 > 40 H* (24-31) mmol/L POC Base Excess 14.0 H (-9-1.8) cheri/L ABG pH (Temp Correct) 7.348 L (7.35-7.45) ABG pCO2 (Temp Corrct 72 H (35-46) mmHg POC ABG pO2 at Pt Temp 65 POC ABG O2 Sat 90.0 (90-95) % Rafa Test NA O2 Delivery Device Ventilator POC O2 Rate 24 Minute Ventilation 8.9 POC FiO2 50 % Tidal Volume 370 PEEP 5 POC Sodium 138 (135-144) mmol/L Sodium (136-145) mmol/L POC Potassium 4.0 (3.3-5.0) mmol/L Potassium (3.5-5.1) mmol/L Chloride (98-107) mmol/L Carbon Dioxide (21-32) mmol/L Anion Gap (3-11) BUN (7-18) mg/dl Creatinine (0.6-1.4) mg/dl Est Cr Clr Drug Dosing ml/min Est GFR ( Amer) ml/min Est GFR (Non-Af Amer) ml/min BUN/Creatinine Ratio (10-20) Glucose (70-99) mg/dl POC Glucose 79 112 H (70-99) mg/dl Calcium (8.5-10.1) mg/dl Phosphorus (2.5-4.9) mg/dl Magnesium (1.8-2.4) mg/dl 03/21/21 Range/Units 11:56 WBC (4.8-10.8) K/uL RBC (4.7-6.1) M/uL Hgb (14.0-18.0) g/dL POC Hgb (14.0-18.0) g/dl Hct (42-52) % POC Hct (42-52) % MCV (80-100) fL MCH (25-34) pg MCHC (32-36) g/dL RDW Std Deviation (36.4-46.3) fL RDW Coeff of Natali (11.5-14.5) % Plt Count (130-400) K/uL MPV (7.4-10.4) fL Sample Site POC pH (7.35-7.45) POC pCO2 (35-46) mmHg POC pO2 (80-95) mmHg POC HCO3 (19-24) cheri/L POC Total CO2 (24-31) mmol/L POC Base Excess (-9-1.8) cheri/L ABG pH (Temp Correct) (7.35-7.45) ABG pCO2 (Temp Corrct (35-46) mmHg POC ABG pO2 at Pt Temp POC ABG O2 Sat (90-95) % Rafa Test O2 Delivery Device POC O2 Rate Minute Ventilation POC FiO2 % Tidal Volume PEEP POC Sodium (135-144) mmol/L Sodium (136-145) mmol/L POC Potassium (3.3-5.0) mmol/L Potassium (3.5-5.1) mmol/L Chloride (98-107) mmol/L Carbon Dioxide (21-32) mmol/L Anion Gap (3-11) BUN (7-18) mg/dl Creatinine (0.6-1.4) mg/dl Est Cr Clr Drug Dosing ml/min Est GFR ( Amer) ml/min Est GFR (Non-Af Amer) ml/min BUN/Creatinine Ratio (10-20) Glucose (70-99) mg/dl POC Glucose 96 (70-99) mg/dl Calcium (8.5-10.1) mg/dl Phosphorus (2.5-4.9) mg/dl Magnesium (1.8-2.4) mg/dl Coding Level of Care Code Critical Care 1st 30-74 mins Diagnoses ARDS (adult respiratory distress syndrome) J80 Acute hypoxemic respiratory failure J96.01 Pneumonia due to COVID-19 virus U07.1; J12.82
[2021-03-22] MEDS: AZITHROMYCIN 500 MG in DEXTROSE 5% 250 ML IV SCH (13:40)
--- NOTE | 2021-03-22 13:59 | Hospitalist Progress Note ---
Date of Service March 22, 2021 Assessment & Plan (1) Acute hypoxemic respiratory failure: Plan: Acute respiratory failure with hypoxia Multifocal COVID pneumonia COVID Screen: Positive 02/28/21 CTA:No CTA evidence for pulmonary embolus. Extensive groundglass opacities are present throughout both lungs characteristic of a viral type pneumonitis Completed dexamethasone 10 days course Got baricitinib given for 6 days but discontinued due to acute DVTs (03/06/21) Had completed abx with cefepime and doxycycline Remdesivir discontinued by pulmonary service Was on HFNC and with worsening resp status, was put on NIV and subsequently intubated on 03/19/21 Anthropology Faculty Member on board with vent/sedation management. Recommendations noted Continue azithromycin Concern for developing fibrosis Dexamethasone was resumed Deep venous thrombosis posterior tibial and peroneal veins In the setting of COVID-19 infection, baricitinib use Patient reports family history of blood clots Continue Lovenox 120 mg subcu twice daily Can do NOAC on discharge Mild indirect bilirubinemia, elevated alk phos Resolved Liver ultrasound:The liver is normal in size and echogenicity. Incidental note is made of a small cyst within the liver. Hyponatremia Hypokalemia Sodium 135 today K is 4 today Monitor Hold HCTZ for now while on iv lasix Hypertension Antihypertensive on hold while on sedation Chronic back pain Patient plans to follow up with Neurosurgery as outpatient Mood disorder/PTSD DVT Px: On Lovenox SQ Code Status Full code Per conversation with patient prior to intubation, Patient is ok with CPR, intubation/mechanical vent for up to 2 weeks if appropriate Does not want tracheostomy Called and updated her She stated she has a family meeting with Anthropology Faculty Member tomorrow Admission and Anticipated Discharge Date Admission Date: March 01, 2021 Subjective 60 year old man with h/o hypertension, hyperlipidemia, chronic back pain, mood disorder/PTSD, past tobacco abuse who presented with cough and shortness of breath Managed for acute hypoxic respiratory failure due to COVID-19 pneumonia. Completed COVID-19 specific therapies and antibiotics Intubated on 03/19/21. Azithromycin started. Dexamethasone resumed Currently sedated Review of Systems Review of Systems: Unobtainable due to endotracheal tube Physical Exam Constitutional: Intubated and sedated ENMT: Endotracheal tube in situ Respiratory: On mechanical ventilation, diminished breath sounds Cardiovascular: Rate/Rhythm: regular rate and regular rhythm S1-S2 Gastrointestinal (Abdomen): Soft, not distended, bowel sounds present Musculoskeletal: No pedal edema Neurologic: Intubated and sedated Genitourinary: Hernandez in situ Results & Data Results & Data ([facility]) Vital Signs (Past 12 Hours) Vital Signs Temp Pulse Resp Pulse Ox 03/22/21 11:21 63 25 H 92 03/22/21 09:00 37.8 C H 67 24 90 03/22/21 08:50 37.9 C H 67 20 91 03/22/21 08:40 37.9 C H 68 25 H 91 03/22/21 08:30 37.9 C H 67 24 91 03/22/21 08:22 63 27 H 93 03/22/21 08:20 37.9 C H 67 21 91 03/22/21 08:10 37.9 C H 64 23 90 03/22/21 08:00 37.9 C H 70 25 H 95 03/22/21 07:50 37.9 C H 69 23 90 03/22/21 07:40 38.0 C H 67 23 89 L 03/22/21 07:30 38.0 C H 69 21 90 03/22/21 07:20 38.0 C H 69 24 90 03/22/21 07:10 38.0 C H 69 24 91 03/22/21 07:00 38.0 C H 69 21 89 L 03/22/21 06:50 38.1 C H 70 24 90 03/22/21 06:40 38.1 C H 69 24 90 03/22/21 06:30 38.1 C H 69 24 90 03/22/21 06:20 38.1 C H 72 24 90 03/22/21 06:10 38.2 C H 70 24 90 03/22/21 06:00 38.2 C H 71 24 90 03/22/21 05:00 38.3 C H 74 23 90 03/22/21 04:00 38.4 C H 73 23 91 03/22/21 03:30 73 25 H 91 03/22/21 03:00 38.3 C H 71 24 90 03/22/21 02:00 38.2 C H 70 23 91 Laboratory Results Abnormal lab results 03/21/21 03/22/21 03/22/21 Range/Units 17:35 03:31 04:36 WBC (4.8-10.8) K/uL RBC (4.7-6.1) M/uL Hgb (14.0-18.0) g/dL POC Hgb 11.2 L (14.0-18.0) g/dl Hct (42-52) % POC Hct 33 L (42-52) % MCHC (32-36) g/dL POC pCO2 63 H (35-46) mmHg POC pO2 62 L (80-95) mmHg POC HCO3 37 H (19-24) cheri/L POC Total CO2 39 H (24-31) mmol/L POC Base Excess 12.0 H (-9-1.8) cheri/L ABG pCO2 (Temp Corrct 67 H (35-46) mmHg Sodium 135 L (136-145) mmol/L Carbon Dioxide 33 H (21-32) mmol/L BUN 35 H D (7-18) mg/dl BUN/Creatinine Ratio 40.3 H (10-20) POC Glucose 112 H (70-99) mg/dl Magnesium 2.5 H (1.8-2.4) mg/dl 03/22/21 Range/Units 04:36 WBC 12.89 H (4.8-10.8) K/uL RBC 3.87 L (4.7-6.1) M/uL Hgb 11.4 L (14.0-18.0) g/dL POC Hgb (14.0-18.0) g/dl Hct 36.4 L (42-52) % POC Hct (42-52) % MCHC 31.3 L (32-36) g/dL POC pCO2 (35-46) mmHg POC pO2 (80-95) mmHg POC HCO3 (19-24) cheri/L POC Total CO2 (24-31) mmol/L POC Base Excess (-9-1.8) cheri/L ABG pCO2 (Temp Corrct (35-46) mmHg Sodium (136-145) mmol/L Carbon Dioxide (21-32) mmol/L BUN (7-18) mg/dl BUN/Creatinine Ratio (10-20) POC Glucose (70-99) mg/dl Magnesium (1.8-2.4) mg/dl
[2021-03-23] MEDS: ARTIFICIAL TEARS OP OINT 3.5 GM TUBE OP SCH ×4 (00:14→08:52)
[2021-03-23] MEDS: TUBE FEEDING WATER FLUSH OG SCH ×6 (00:15→20:01)
[2021-03-23] MEDS: MIDAZOLAM HCL 125 MG/250 ML BAG IV SCH ×4 (03:47→16:21)
[2021-03-23 04:35] LABS: iSTAT Art Bld Gas pCO2 Correct 67 mmHg (35-46); iSTAT Art Bld Gas pH Corrected 7.364 (7.35-7.45); iSTAT Arterial Blood Gas HCO3 38 meg/L (19-24); iSTAT Arterial Blood Gas pCO2 66 mmHg (35-46); iSTAT Arterial Blood Gas pH 7.37 (7.35-7.45); iSTAT Arterial Blood Gas pO2 70 mmHg (80-95); iSTAT Arterial Blood Gas pO2 C 72; iSTAT Carbon Dioxide > 40 mmol/L (24-31); iSTAT FiO2 55 %; iSTAT Hematocrit 33 % (42-52); iSTAT Hemoglobin 11.2 g/dl (14.0-18.0); iSTAT Potassium 4.3 mmol/L (3.3-5.0); iSTAT Site Art Line; iSTAT Sodium 137 mmol/L (135-144)
[2021-03-23] MEDS: PEPTAMEN INTENSE VHP 1.0 CAL 1,000 ML BAG OG SCH (04:51)
[2021-03-23 05:15] LABS: Basophils # (auto) 0.01 K/uL (0-0.2); Basophils % (auto) 0.1 %; Eosinophils # (auto) 0.16 K/uL (0-0.5); Eosinophils % (auto) 1.2 %; Hematocrit (blood only) 35.6 % (42-52); Hemoglobin 11.3 g/dL (14.0-18.0); Immature Granulocytes # (auto) 0.12 K/uL (0.00-0.02); Immature Granulocytes % (auto) 0.9 %; Lymphocytes # (auto) 1.94 K/uL (1.2-3.4); Lymphocytes % (auto) 14.7 %; Mean Corpuscular Hemoglobin 29.4 pg (25-34); Mean Corpuscular Hgb Conc 31.7 g/dL (32-36); Mean Corpuscular Volume 92.7 fL (80-100); Monocytes # (auto) 1.66 K/uL (0.11-0.59); Monocytes % (auto) 12.6 %; Neutrophils # (auto) 9.29 K/uL (1.4-6.5); Neutrophils % (auto) 70.5 %; Platelet Count 312 K/uL (130-400); RDW Coefficient of Variation 12.5 % (11.5-14.5); RDW Standard Deviation 42.4 fL (36.4-46.3); Red Blood Count 3.84 M/uL (4.7-6.1); White Blood Count 13.18 K/uL (4.8-10.8)
[2021-03-23 05:58] LABS: BUN Creatinine Ratio 50.2 (10-20); Calcium 9.4 mg/dl (8.5-10.1); Creatinine Clr Calc Pharmacy 170.1 ml/min; Est GFR (African American) 126.7 ml/min; Est GFR (Non-African American) 109.3 ml/min; Magnesium 2.7 mg/dl (1.8-2.4); Potassium 4.3 mmol/L (3.5-5.1)
[2021-03-23 05:59] LABS: Phosphorus 3.3 mg/dl (2.5-4.9)
[2021-03-23] MEDS: ICU ELECTROLYTE REPLACEMENT PROTOCOL SCH ×2 (06:03→17:11)
[2021-03-23] MEDS: fentaNYL citrate 2,500 MCG/250 ML BAG IV SCH ×2 (07:27→17:14)
--- NOTE | 2021-03-23 08:37 | XRay Report ---
XR chest 1V portable CLINICAL HISTORY: Follow-up extensive bilateral airspace opacities and pleural effusions. COMPARISON STUDY: 03/22/2021 TECHNIQUE: 1 view of the chest FINDINGS: Single frontal view of the chest demonstrates the heart size to again be enlarged. Tubes and catheter s are unchanged. Extensive interstitial and alveolar opacities are again seen bilaterally. There is a lso suspicion of bilateral pleural effusions again seen. There is no evidence for vascular congestion . There is no acute osseous pathology. IMPRESSION: Extensive interstitial and alveolar opacities are again seen bilaterally and essentially unchanged. There is again evidence for small bilateral pleural effusions. ACT 112: Negative or not required by law. Electronically signed by: Jose Emerson M.D. 03/23/2021 8:36 AM
[2021-03-23] MEDS: dexAMETHasone 20 MG in DEXTROSE 5% 25 ML IV SCH (08:50)
[2021-03-23] MEDS: ENOXAPARIN INJ 120 MG/0.8 ML SYR SQ SCH ×2 (08:50→20:01)
[2021-03-23] MEDS: FLUTICASONE PROPIONATE NA SPR 16 GM BTL SCH (08:51)
[2021-03-23] MEDS: GABAPENTIN 400 MG CAP PO SCH ×3 (08:52→20:02)
[2021-03-23] MEDS: FUROSEMIDE 40 MG/4 ML VIAL IV SCH (08:52)
[2021-03-23] MEDS: SENNOSIDES 8.8 MG/5 ML UDC PO SCH (08:54)
[2021-03-23] MEDS ORDERED: LACTULOSE SYRUP 30 GM/45 ML UDP PO STA (09:43)
--- NOTE | 2021-03-23 09:46 | Critical Care Progress Note ---
Date of Service March 23, 2021 Assessment & Plan (1) ARDS (adult respiratory distress syndrome): (2) Acute hypoxemic respiratory failure: (3) Pneumonia due to COVID-19 virus: Plan: Reason Critically Ill: Acute hypoxic respiratory failure secondary to COVID-19 pneumonia PLAN: Neuro: Sedation: Propofol, versed Analgesia: Fentanyl --History of chronic low back pain --Mood disorder with PTSD -Convert Wellbutrin XR to immediate release, add liquid Prozac Resp: -- VDRF with acute hypoxic respiratory failure Secondary to multilobar COVID-19 pneumonia Intubation 03/19: Day 5 Patient has very noncompliant lungs. COVID-19 PCR positive Started on azithromycin on 03/18/2021 Patient has completed 7 days of cefepime and doxycycline He has completed 10 days of dexamethasone He did get 6 days of baricitinib which was discontinued due to acute DVTs on 03/06/2021 Continue with lung protective ventilation High PEEP, low tidal volume to keep Plateau < 30 with permissive hypercapnea if need be. Monitor ABGs Continue with ventilatory support S/p proning. Last proning was 03/21/2021 CV: --Shock resolved Hypertension -5 mg amlodipine per home medication ID: As per respiratory GI/Nutrition: Tube feeding: Peptamen Heme: --Acute DVTs Continue with therapeutic Lovenox DVT prophylaxis: Therapeutic Lovenox Endocrine: ICU hyperglycemia protocol Vascular access: Right internal jugular placed 03/18, right radial Code Status: Full Disposition: ICU --Prognosis guarded Patient's Mellissa: [phone] Admission and Anticipated Discharge Date Admission Date: March 01, 2021 Supervising Physician Co-Signing Physician Notes I have personally spent 45 minutes of critical care time in the direct management of this patient. This is a life/limb threatening event. This includes time spent evaluating patient, direct bedside care, chart review, placing orders, interpretation of diagnostic studies, discussion with consultants, patient, and/or family members regarding treatment decisions, as well as other required patient management activities. This time is exclusive of all separately billable procedures, and teaching time and separate from and in addition to any other critical care service time. Subjective No overnight events. Had extensive discussion with family regarding risk benefits of tracheostomy, percutaneous/open surgical, timing, prognosis. Consent obtained to proceed with formal percutaneous tracheostomy. Review of Systems Review of Systems: Unable to obtain due to endotracheal tube Physical Exam Physical Exam: General: Sedated. nontoxic. Supine position Skin: Warm, dry, Head: Atraumatic Ears, nose, mouth and throat: airway obscured by endotracheal tube Cardiovascular: Normal peripheral perfusion Respiratory: no respiratory distress Gastrointestinal: Non distended Musculoskeletal: No deformity Results & Data Results & Data ([facility]) Vital Signs (Past 12 Hours) Vital Signs Temp Pulse Resp Pulse Ox 03/23/21 07:10 60 27 H 90 03/23/21 06:05 37.3 C 59 L 24 94 03/23/21 05:09 37.4 C 61 24 03/23/21 04:08 37.3 C 64 24 92 03/23/21 03:38 61 27 H 92 03/23/21 01:24 37.5 C 62 24 90 03/23/21 00:07 37.6 C H 66 24 91 03/22/21 23:18 62 28 H 90 03/22/21 23:12 37.6 C H 69 24 92 03/22/21 22:16 37.5 C 66 24 89 L Coding Level of Care Code Critical Care 1st 30-74 mins Diagnoses ARDS (adult respiratory distress syndrome) J80 Acute hypoxemic respiratory failure J96.01 Pneumonia due to COVID-19 virus U07.1; J12.82
[2021-03-23] MEDS: amLODIPine BESYLATE 5 MG TAB PO SCH (11:22)
[2021-03-23] MEDS: PANTOprazole 40 MG in SYRINGE 0 ML IV SCH (11:25)
[2021-03-23] MEDS ORDERED: VECURONIUM BROMIDE 10 MG VIAL IV ONE (11:39)
--- NOTE | 2021-03-23 12:28 | Procedure Note ---
Procedure Note Date of Service March 23, 2021 Note Procedure Date: Noted Above Procedure: Percutaneous Dilatational Tracheotomy with Bronchoscopic Guidance Pre-procedure Diagnosis & Indication: Chronic respiratory failure and need for ongoing mechanical ventilation Post-procedure Diagnosis: same as above Prior to Procedure: Informed Consent: The risks, benefits, indications, potential complications, and alternatives were explained to the patient's family and informed consent was obtained. Performed by: Miko Singh DO Bronchoscopy Prosthetics Technician: Meghann Preprocedure: The identity of the patient was confirmed and a bedside time out was performed. [place] protocol was followed for this procedure. Prior to the initiation of sedation or the procedure, a timeout was performed. The patients identity was verified by confirming the patients wrist band for name, date of , and medical record number. Everyone in the room was in agreement with the patient identify, the procedure to be performed, consent was in place and matched the planned procedure, and the procedure site. The area was cleaned with a CHG scrub and draped with large sterile barrier. Hand hygiene was performed, mask, sterile gown, and sterile gloves were worn. The patient was covered by a large sterile drape. Sterile technique was maintained for the entire procedure. Anesthesia: The patient was intubated and sedated prior to the procedure. Additional midazolam and fentanyl was given for deep sedation. Please refer to the accompanying procedural sedation form for additional details. Once the patient was adequately sedated and vecuronium was administered for neuromuscular blockade. Description of Procedure: The patient was placed in the supine position. The anterior neck was prepped and draped in usual sterile fashion. 1% lidocaine was administered approximately 2 fingerbreadths above the sternal notch for local anesthesia. The bronchoscope was introduced through the endotracheal tube and the trachea was properly visualized. The endotracheal tube was then gradually withdrawn within the trachea under direct bronchoscopic visualization. The area of the surgical site was initially transilluminated, and proper midline position was confirmed by bouncing the needle from the tracheostomy tray over the trachea with bronchoscopic examination. The needle was advanced into the trachea and proper positioning was confirmed with direct visualization. The needle was then removed leaving a white outer cannula in position. The wire from the tracheostomy tray was then advanced through the white outer cannula. The cannula was then removed. The initial small, blue dilator was then advanced over the wire into the trachea for initial dilation. The large, tapered dilator was then advanced over the wire into the trachea. The dilator was removed leaving the wire and white inner cannula in position. A number 8 percutaneous Shiley tracheostomy tube with appropriate inner cannula was then advanced over the wire and white inner cannula into the trachea. Proper positioning was confirmed with bronchoscopic visualization. The tracheostomy tube was then sutured in place with four nylon sutures. It was further secured with a tracheostomy tie. Estimated blood loss: Less than 5 mL. Complications: None immediate. Coding CPT Codes ENT - ENT: 18828 Incision of windpipe ([id number]) [facility] [place] Procedure Codes (Charges) ENT ENT: 29486 Incision of windpipe
--- NOTE | 2021-03-23 12:36 | Procedure Note ---
Procedure Note Date of Service March 23, 2021 Note BRONCHOSCOPY for percutaneous tracheostomy and bal lavage Procedure: Flexible Bronchoscopy Attending: Dr. Singh Dryer Feeder: Marcio WATSON ([facility]) Anesthetic/Sedation: Fentanyl, Propofol continuous infusion Indication: Percutaneous tracheostomy placement Consent was obtained by Dr. Singh from family, signed and placed on the chart prior to procedure. Indication, risks, and benefits were explained at length by Dr. Singh A time-out was completed verifying correct patient, procedure, site, positioning, and implant(s) or special equipment if applicable. Procedure: Endotracheal tube was entered and christie visualized. The ETT and the bronchoscope was backed out to just below the vocal cords and transillumination through the skin was noted by Dr. Singh. The skin was entered with seeker needle by Dr. Singh, needle visualized with bronchoscope, needle advanced and visulaized progressing downwards towards the christie. The site was then dilated and percutaneous tracheostomy was placed. ETT and bronchoscope was withdrawn intact. Trachea normal Main Christie normal LEFT Mainstem Bronchus: IVIS clear LLL scant thick clear secretions irrigated and suctioined out sample for culture and gram stain RIGHT Mainstem Bronchus: RUL: clean RIGHT Bronchus Intermedius: RML clear, small amount of thick clear secretions irrigated RLL no secretions normal airways visualized Specimens: BAL [x] RmL x [LT] lower Lobe Complications: NONE Impression: Scant thick clear secretions, normal appearing airway Plan: Sent BAL for Culture & Sensitivities, Gram Stain, AFB Images: Print out of images added to patients physical chart. Coding CPT Codes Pulmonary/Thoracic - Pulmonary and Thoracic: 45336 Bronchoscopy, reclear airway ([id number]) [facility] [place] (Charges) Pulmonary/Thoracic Procedure 1: Pulmonary and Thoracic: 07987 Bronchoscopy, reclear airway
--- NOTE | 2021-03-23 13:06 | Hospitalist Progress Note ---
Date of Service March 23, 2021 Assessment & Plan (1) Acute hypoxemic respiratory failure: Plan: Acute respiratory failure with hypoxia Multifocal COVID pneumonia COVID Screen: Positive 02/28/21 CTA:No CTA evidence for pulmonary embolus. 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 Incidental note is made of a small cyst within the liver. Hyponatremia Hypokalemia Sodium 137 today K is 4.3 today Monitor Hold HCTZ for now while on iv lasix Hypertension Antihypertensive on hold while on sedation Chronic back pain Patient plans to follow up with Neurosurgery as outpatient Mood disorder/PTSD DVT Px: On Lovenox SQ Code Status Full code Admission and Anticipated Discharge Date Admission Date: March 01, 2021 Subjective 60 year old man with h/o hypertension, hyperlipidemia, chronic back pain, mood disorder/PTSD, past tobacco abuse who presented with cough and shortness of breath Managed for acute hypoxic respiratory failure due to COVID-19 pneumonia. Completed COVID-19 specific therapies and antibiotics Intubated on 03/19/21. Azithromycin started. Dexamethasone resumed Had tracheostomy done earlier today Currently on mechanical ventilation and sedated Review of Systems 2 Review of Systems: Other Physical Exam Constitutional: Sedated on mechanical ventilation ENMT: Nasogastric tube in situ Neck: Tracheostomy in situ connected to vent Respiratory: Diminished breath sounds Mechanical ventilation Cardiovascular: Rate/Rhythm: regular rate and regular rhythm S1-S2 Gastrointestinal (Abdomen): Soft, nondistended, positive bowel sounds Musculoskeletal: No pedal edema Neurologic: Sedated Genitourinary: Hernandez in situ Results & Data Results & Data ([facility]) Vital Signs (Past 12 Hours) Vital Signs Temp Pulse Resp Pulse Ox 03/23/21 11:25 68 28 H 90 03/23/21 08:00 58 L 03/23/21 07:10 60 27 H 90 03/23/21 06:05 37.3 C 59 L 24 94 03/23/21 05:09 37.4 C 61 24 03/23/21 04:08 37.3 C 64 24 92 03/23/21 03:38 61 27 H 92 03/23/21 01:24 37.5 C 62 24 90 Laboratory Results Abnormal lab results 03/22/21 03/23/21 03/23/21 Range/Units 23:38 03:47 04:33 WBC (4.8-10.8) K/uL RBC (4.7-6.1) M/uL Hgb (14.0-18.0) g/dL POC Hgb 11.2 L (14.0-18.0) g/dl Hct (42-52) % POC Hct 33 L (42-52) % MCHC (32-36) g/dL Neut # (Auto) (1.4-6.5) K/uL Mckinley # (Auto) (0.11-0.59) K/uL Immature Gran # (Auto) (0.00-0.02) K/uL POC pCO2 66 H (35-46) mmHg POC pO2 70 L (80-95) mmHg POC HCO3 38 H (19-24) cheri/L POC Total CO2 > 40 H* (24-31) mmol/L POC Base Excess 13.0 H (-9-1.8) cheri/L ABG pCO2 (Temp Corrct 67 H (35-46) mmHg Sodium 135 L (136-145) mmol/L Carbon Dioxide 34 H (21-32) mmol/L BUN 31 H (7-18) mg/dl BUN/Creatinine Ratio 50.2 H (10-20) Glucose 114 H (70-99) mg/dl POC Glucose 110 H (70-99) mg/dl Magnesium 2.7 H (1.8-2.4) mg/dl 03/23/21 Range/Units 04:33 WBC 13.18 H (4.8-10.8) K/uL RBC 3.84 L (4.7-6.1) M/uL Hgb 11.3 L (14.0-18.0) g/dL POC Hgb (14.0-18.0) g/dl Hct 35.6 L (42-52) % POC Hct (42-52) % MCHC 31.7 L (32-36) g/dL Neut # (Auto) 9.29 H (1.4-6.5) K/uL Mckinley # (Auto) 1.66 H (0.11-0.59) K/uL Immature Gran # (Auto) 0.12 H (0.00-0.02) K/uL POC pCO2 (35-46) mmHg POC pO2 (80-95) mmHg POC HCO3 (19-24) cheri/L POC Total CO2 (24-31) mmol/L POC Base Excess (-9-1.8) cheri/L ABG pCO2 (Temp Corrct (35-46) mmHg Sodium (136-145) mmol/L Carbon Dioxide (21-32) mmol/L BUN (7-18) mg/dl BUN/Creatinine Ratio (10-20) Glucose (70-99) mg/dl POC Glucose (70-99) mg/dl Magnesium (1.8-2.4) mg/dl
--- NOTE | 2021-03-23 13:22 | XRay Report ---
KUB CLINICAL HISTORY: confirm Core safe placement COMPARISON STUDY: Chest radiograph performed earlier today. FINDINGS: The tip of the feeding tube is coiled within the stomach. The tip projects over the gastric cardia or proximal body of the stomach. Visualized bowel gas pattern is normal. There are cholecyste ctomy clips. Airspace opacities are noted within visualized portions of the lungs. IMPRESSION: Feeding tube coiled within the stomach. Tip projects over the gastric cardia or proximal body of the stomach. ACT 112: Negative or not required by law. Electronically signed by: Joseph Hurley M.D. 03/23/2021 1:21 PM
[2021-03-23] MEDS: AZITHROMYCIN 500 MG in DEXTROSE 5% 250 ML IV SCH (15:06)
[2021-03-23] MEDS: buPROPion HCl 100 MG TABLET PO SCH ×2 (15:07→20:01)
[2021-03-24] MEDS: TUBE FEEDING WATER FLUSH OG SCH ×6 (00:49→19:46)
[2021-03-24] MEDS: fentaNYL citrate 2,500 MCG/250 ML BAG IV SCH (01:51)
[2021-03-24 04:49] LABS: Hematocrit (blood only) 36.7 % (42-52); Hemoglobin 11.4 g/dL (14.0-18.0); Mean Corpuscular Hemoglobin 29.3 pg (25-34); Mean Corpuscular Hgb Conc 31.1 g/dL (32-36); Mean Corpuscular Volume 94.3 fL (80-100); Mean Platelet Volume 9.9 fL (7.4-10.4); Platelet Count 330 K/uL (130-400); RDW Coefficient of Variation 12.7 % (11.5-14.5); RDW Standard Deviation 43.4 fL (36.4-46.3); Red Blood Count 3.89 M/uL (4.7-6.1); White Blood Count 19.18 K/uL (4.8-10.8)
[2021-03-24 04:57] LABS: iSTAT Art Bld Gas pCO2 Correct 77 mmHg (35-46); iSTAT Art Bld Gas pH Corrected 7.337 (7.35-7.45); iSTAT Arterial Blood Gas HCO3 41 meg/L (19-24); iSTAT Arterial Blood Gas pCO2 75 mmHg (35-46); iSTAT Arterial Blood Gas pH 7.35 (7.35-7.45); iSTAT Arterial Blood Gas pO2 91 mmHg (80-95); iSTAT Arterial Blood Gas pO2 C 95; iSTAT Carbon Dioxide > 40 mmol/L (24-31); iSTAT FiO2 60 %; iSTAT Hematocrit 34 % (42-52); iSTAT Hemoglobin 11.6 g/dl (14.0-18.0); iSTAT Potassium 4.3 mmol/L (3.3-5.0); iSTAT Site Art Line; iSTAT Sodium 137 mmol/L (135-144)
[2021-03-24 05:24] LABS: Calcium 9.6 mg/dl (8.5-10.1); Creatinine Clr Calc Pharmacy 151.8 ml/min; Est GFR (African American) 121.3 ml/min; Est GFR (Non-African American) 104.6 ml/min; Magnesium 2.4 mg/dl (1.8-2.4); Potassium 4.1 mmol/L (3.5-5.1)
[2021-03-24 05:25] LABS: Phosphorus 3.2 mg/dl (2.5-4.9)
[2021-03-24] MEDS: ACETAMINOPHEN 325 MG TAB PO PRN ×4 (05:31→19:57)
[2021-03-24] MEDS: ICU ELECTROLYTE REPLACEMENT PROTOCOL SCH ×2 (06:05→18:39)
[2021-03-24] MEDS ORDERED: STAT IV Infusion **Titration per Protocol STA ×2 (08:09→23:18)
--- NOTE | 2021-03-24 08:15 | Critical Care Progress Note ---
Date of Service March 24, 2021 Assessment & Plan (1) ARDS (adult respiratory distress syndrome): (2) Acute hypoxemic respiratory failure: (3) Pneumonia due to COVID-19 virus: Plan: Reason Critically Ill: Acute hypoxic respiratory failure secondary to COVID-19 pneumonia PLAN: Neuro: Sedation: versed: To be discontinued transition to Precedex as needed Analgesia: Fentanyl to be discontinued transition to oxycodone p.o. taper ordered --History of chronic low back pain -Continue gabapentin --Mood disorder with PTSD -Converted Wellbutrin XR to immediate release, add liquid Prozac Resp: -- VDRF with acute hypoxic respiratory failure Secondary to multilobar COVID-19 pneumonia Intubation 03/19 Tracheostomy: 03/23: Postop day 1 COVID-19 PCR positive Started on azithromycin on 03/18/2021 Patient has completed 7 days of cefepime and doxycycline He has completed 10 days of dexamethasone He did get 6 days of baricitinib which was discontinued due to acute DVTs on 03/06/2021 Continue with ventilatory support -Wean proning as able S/p proning. Last proning was 03/21/2021 CV: --Shock: Resolved Hypertension -5 mg amlodipine per home medication ID: As per respiratory GI/Nutrition: Tube feeding: Peptamen at goal via core safe feeding tube Constipation last bowel movement 03/16 -Relistor x1 -Lactulose 30 mL x 1 Heme: --Acute DVTs Continue with therapeutic Lovenox DVT prophylaxis: Therapeutic Lovenox Endocrine: ICU hyperglycemia protocol Vascular access: Right internal jugular placed 03/18, right radial -Consider discontinue CVL Code Status: Full Disposition: ICU --Prognosis guarded Patient's Mellissa: [phone] Admission and Anticipated Discharge Date Admission Date: March 01, 2021 Supervising Physician Co-Signing Physician Notes I have personally spent 35 minutes of critical care time in the direct management of this patient. This is a life/limb threatening event. This includes time spent evaluating patient, direct bedside care, chart review, placing orders, interpretation of diagnostic studies, discussion with consultants, patient, and/or family members regarding treatment decisions, as well as other required patient management activities. This time is exclusive of all separately billable procedures, and teaching time and separate from and in addition to any other critical care service time. Subjective No overnight events Review of Systems Review of Systems: Other Unobtainable due to tracheostomy tube Physical Exam Physical Exam: General: Somnolent. nontoxic. Skin: Warm, dry, Head: Atraumatic Ears, nose, mouth and throat: airway patent, tracheostomy tube in place dried blood around the edges no cellulitis Cardiovascular: Normal peripheral perfusion Respiratory: Ventilator settings reviewed Gastrointestinal: Non distended Musculoskeletal: No deformity Results & Data Results & Data ([facility]) Vital Signs (Past 12 Hours) Vital Signs Temp Pulse Resp BP Pulse Ox 03/24/21 07:36 84 03/24/21 06:00 38.2 C H 84 26 H 92 03/24/21 05:00 38.1 C H 85 29 H 89 L 03/24/21 04:17 37.9 C H 86 23 153/80 H 92 03/24/21 03:17 37.7 C H 80 27 H 144/82 H 95 03/24/21 03:00 37.7 C H 84 24 96 03/24/21 02:47 37.6 C H 82 27 H 142/72 H 95 03/24/21 02:25 82 27 H 94 03/24/21 02:17 37.6 C H 80 28 H 148/69 H 94 03/24/21 02:00 37.6 C H 101 H 29 H 97 03/24/21 01:47 37.6 C H 77 32 H 143/72 H 85 L 03/24/21 01:33 37.6 C H 81 28 H 138/77 91 03/24/21 01:18 37.6 C H 95 H 37 H 204/107 H 87 L 03/24/21 01:00 37.7 C H 82 32 H 88 L 03/24/21 00:17 37.7 C H 67 28 H 129/69 92 03/23/21 23:17 140/73 03/23/21 23:00 37.6 C H 68 27 H 93 03/23/21 22:45 68 27 H 93 03/23/21 22:00 37.5 C 66 23 93 03/23/21 20:17 37.3 C 70 27 H 143/70 H 92 Laboratory Results 03/24/21 03/24/21 03/24/21 Range/Units 04:24 04:24 03:52 WBC 19.18 H (4.8-10.8) K/uL RBC 3.89 L (4.7-6.1) M/uL Hgb 11.4 L (14.0-18.0) g/dL POC Hgb 11.6 L (14.0-18.0) g/dl Hct 36.7 L (42-52) % POC Hct 34 L (42-52) % MCV 94.3 (80-100) fL MCH 29.3 (25-34) pg MCHC 31.1 L (32-36) g/dL RDW Std Deviation 43.4 (36.4-46.3) fL RDW Coeff of Natali 12.7 (11.5-14.5) % Plt Count 330 (130-400) K/uL MPV 9.9 (7.4-10.4) fL Sample Site Art Line POC pH 7.35 (7.35-7.45) POC pCO2 75 H (35-46) mmHg POC pO2 91 (80-95) mmHg POC HCO3 41 H (19-24) cheri/L POC Total CO2 > 40 H* (24-31) mmol/L POC Base Excess 15.0 H (-9-1.8) cheri/L ABG pH (Temp Correct) 7.337 L (7.35-7.45) ABG pCO2 (Temp Corrct 77 H (35-46) mmHg POC ABG pO2 at Pt Temp 95 POC ABG O2 Sat 96.0 H (90-95) % Rafa Test NA O2 Delivery Device Ventilator POC O2 Rate 24 Minute Ventilation 9 POC FiO2 60 % Tidal Volume 370 PEEP 5 POC Sodium 137 (135-144) mmol/L Sodium 136 (136-145) mmol/L POC Potassium 4.3 (3.3-5.0) mmol/L Potassium 4.1 (3.5-5.1) mmol/L Chloride 97 L (98-107) mmol/L Carbon Dioxide 37 H (21-32) mmol/L Anion Gap 2.0 L (3-11) BUN 35 H (7-18) mg/dl Creatinine 0.69 (0.6-1.4) mg/dl Est Cr Clr Drug Dosing 151.8 ml/min Est GFR ( Amer) 121.3 ml/min Est GFR (Non-Af Amer) 104.6 ml/min BUN/Creatinine Ratio 51.0 H (10-20) Glucose 128 H (70-99) mg/dl POC Glucose (70-99) mg/dl Calcium 9.6 (8.5-10.1) mg/dl Phosphorus 3.2 (2.5-4.9) mg/dl Magnesium 2.4 (1.8-2.4) mg/dl 03/24/21 Range/Units 00:34 WBC (4.8-10.8) K/uL RBC (4.7-6.1) M/uL Hgb (14.0-18.0) g/dL POC Hgb (14.0-18.0) g/dl Hct (42-52) % POC Hct (42-52) % MCV (80-100) fL MCH (25-34) pg MCHC (32-36) g/dL RDW Std Deviation (36.4-46.3) fL RDW Coeff of Natali (11.5-14.5) % Plt Count (130-400) K/uL MPV (7.4-10.4) fL Sample Site POC pH (7.35-7.45) POC pCO2 (35-46) mmHg POC pO2 (80-95) mmHg POC HCO3 (19-24) cheri/L POC Total CO2 (24-31) mmol/L POC Base Excess (-9-1.8) cheri/L ABG pH (Temp Correct) (7.35-7.45) ABG pCO2 (Temp Corrct (35-46) mmHg POC ABG pO2 at Pt Temp POC ABG O2 Sat (90-95) % Rafa Test O2 Delivery Device POC O2 Rate Minute Ventilation POC FiO2 % Tidal Volume PEEP POC Sodium (135-144) mmol/L Sodium (136-145) mmol/L POC Potassium (3.3-5.0) mmol/L Potassium (3.5-5.1) mmol/L Chloride (98-107) mmol/L Carbon Dioxide (21-32) mmol/L Anion Gap (3-11) BUN (7-18) mg/dl Creatinine (0.6-1.4) mg/dl Est Cr Clr Drug Dosing ml/min Est GFR ( Amer) ml/min Est GFR (Non-Af Amer) ml/min BUN/Creatinine Ratio (10-20) Glucose (70-99) mg/dl POC Glucose 103 H (70-99) mg/dl Calcium (8.5-10.1) mg/dl Phosphorus (2.5-4.9) mg/dl Magnesium (1.8-2.4) mg/dl Coding Level of Care Code Critical Care 1st 30-74 mins Diagnoses ARDS (adult respiratory distress syndrome) J80 Acute hypoxemic respiratory failure J96.01 Pneumonia due to COVID-19 virus U07.1; J12.82
[2021-03-24] MEDS: buPROPion HCl 100 MG TABLET PO SCH ×3 (08:20→19:58)
[2021-03-24] MEDS: FUROSEMIDE 40 MG/4 ML VIAL IV SCH (08:20)
[2021-03-24] MEDS: ENOXAPARIN INJ 120 MG/0.8 ML SYR SQ SCH ×2 (08:20→19:58)
[2021-03-24] MEDS: amLODIPine BESYLATE 5 MG TAB PO SCH (08:20)
[2021-03-24] MEDS: FLUoxetine HCL 20 MG/5 ML 120ML BTL PO SCH (08:20)
[2021-03-24] MEDS: SENNOSIDES 8.8 MG/5 ML UDC PO SCH (08:21)
[2021-03-24] MEDS: oxyCODONE HCL IR 5 MG TAB (IMMEDIATE RELEASE) PO SCH ×3 (08:21→19:57)
[2021-03-24] MEDS: dexAMETHasone 10 MG in SYRINGE 0 ML IV SCH (08:23)
[2021-03-24] MEDS: DEXMEDETOMIDINE HCL 200 MCG in SODIUM CHLORIDE 0.9% 48 ML IV SCH ×3 (08:26→19:47)
--- NOTE | 2021-03-24 08:52 | XRay Report ---
XR chest 1V portable HISTORY: Shortness of breath. Follow-up. COMPARISON: Chest 03/23/2021. FINDINGS: Interval placement of tracheostomy tube which appears in good position. Feeding tube is loo ped within the stomach. Right jugular central venous catheter is at the right atrium. This is also un changed. No pneumothorax. No pleural effusions. There are low lung volumes. The heart remains enlarge d. Extensive bilateral airspace opacities persist. IMPRESSION: 1. Satisfactory support line placement with interval placement of a tracheostomy tube. 2. No change in the extensive bilateral airspace opacities consistent with a viral pneumonia. ACT 112: Negative or not required by law. Electronically signed by: Sree Natarajan M.D. 03/24/2021 8:50 AM
[2021-03-24] MEDS: MIDAZOLAM HCL 125 MG/250 ML BAG IV SCH (08:54)
[2021-03-24] MEDS ORDERED: dexAMETHasone 10 MG in SYRINGE 0 ML IV SCH (09:00)
[2021-03-24] MEDS ORDERED: LACTULOSE SYRUP 30 GM/45 ML UDP PO ONE (10:00)
[2021-03-24] MEDS: MIDAZOLAM HCL 1 MG/ML 2ML VIAL IV PRN ×6 (10:11→22:31)
[2021-03-24] MEDS ORDERED: MIDAZOLAM HCL 1 MG/ML 2ML VIAL ONE (10:11)
[2021-03-24] MEDS: GABAPENTIN 250 MG/5 ML 470 ML BTL PO SCH ×3 (11:19→20:00)
[2021-03-24] MEDS: METHYLNALTREXONE BROMIDE 12 MG/0.6 ML VIAL SQ SCH (11:32)
[2021-03-24] MEDS: PANTOprazole 40 MG in SYRINGE 0 ML IV SCH (11:34)
[2021-03-24] MEDS: DEXMEDETOMIDINE HCL 400 MCG in 0.9 % SODIUM CHLORIDE 96 ML IV SCH ×5 (12:37→22:41)
[2021-03-24] MEDS: AZITHROMYCIN 500 MG in DEXTROSE 5% 250 ML IV SCH (14:55)
[2021-03-24] MEDS ORDERED: SODIUM CHLORIDE 0.9% IV ONE (15:15)
[2021-03-24] MEDS ORDERED: KETAMINE HCL IV ONE (15:15)
[2021-03-24] MEDS ORDERED: Nursing to Pharmacy Communication SCH (15:45)
[2021-03-24] MEDS: KETAMINE / NSS 500 MG/500 ML BAG IV SCH (15:47)
[2021-03-24] MEDS: PEPTAMEN INTENSE VHP 1.0 CAL 1,000 ML BAG OG SCH (16:30)
--- NOTE | 2021-03-24 20:01 | Hospitalist Progress Note ---
Date of Service March 24, 2021 Assessment & Plan (1) Acute hypoxemic respiratory failure: Plan: Acute respiratory failure with hypoxia Multifocal COVID pneumonia COVID Screen: Positive 02/28/21 CTA:No CTA evidence for pulmonary embolus. Extensive groundglass opacities are present throughout both lungs characteristic of a viral type pneumonitis Completed dexamethasone 10 days course Got baricitinib given for 6 days but discontinued due to acute DVTs (03/06/21) Had completed abx with cefepime and doxycycline Remdesivir discontinued by pulmonary service Was on HFNC and with worsening resp status, was put on NIV and subsequently intubated on 03/19/21 Tracheostomy 03/23, on MV Vent and sedation management per branch service associate Concern for developing fibrosis On azithromycin and dexamethasone Deep venous thrombosis posterior tibial and peroneal veins In the setting of COVID-19 infection & baricitinib use Patient reports family history of blood clots Continue Lovenox 120 mg subcu twice daily Can do NOAC on discharge Mild indirect bilirubinemia, elevated alk phos Resolved Liver ultrasound:The liver is normal in size and echogenicity. Incidental note is made of a small cyst within the liver. Hyponatremia Hypokalemia Sodium 136 today K is 4.1 today Monitor Hold HCTZ for now while on iv lasix Hypertension Antihypertensive on hold while on sedation Chronic back pain Patient plans to follow up with Neurosurgery as outpatient Mood disorder/PTSD DVT Px: On Lovenox SQ Full code Admission and Anticipated Discharge Date Admission Date: March 01, 2021 Subjective Patient lying in bed, sedated with Precedex, status post tracheostomy on mechanical ventilation, ROS not assessable. Physical Exam Physical Exam: GENERAL: Sedated, tracheostomy status, on mechanical ventilation. HEENT: No pallor, no icterus. Pupils equal, round and reactive to light. Oral mucosa moist. NECK: No JVD, no neck masses. HEART: S1 and S2 heard. Regular rate and rhythm. No murmur, no gallop. RESPIRATORY SYSTEM: Normal AP diameter. No accessory muscle use. No wheezing, crackles at bases, decreased breath sounds. ABDOMEN: Soft, bowel sounds present, no distention. CENTRAL NERVOUS SYSTEM: n/a EXTREMITIES: No edema, no erythema seen. Results & Data Results & Data ([facility]) Vital Signs (Past 12 Hours) Vital Signs Temp Pulse Pulse Resp BP Pulse Ox 03/24/21 19:10 39.0 C H 76 13 94 03/24/21 19:00 38.9 C H 75 41 H 94 03/24/21 18:50 38.9 C H 78 30 H 94 03/24/21 18:47 38.9 C H 80 21 118/72 94 03/24/21 18:40 38.9 C H 79 31 H 94 03/24/21 18:30 38.9 C H 74 35 H 91 03/24/21 18:20 38.9 C H 78 24 93 03/24/21 18:17 38.9 C H 79 24 122/74 93 03/24/21 18:10 38.9 C H 76 31 H 94 03/24/21 18:00 39.0 C H 78 0 L 93 03/24/21 17:50 39.0 C H 71 25 H 92 03/24/21 17:48 39.1 C H 73 34 H 117/65 92 03/24/21 17:40 39.1 C H 86 33 H 92 03/24/21 17:30 39.1 C H 69 26 H 94 03/24/21 17:20 39.1 C H 68 22 94 03/24/21 17:17 39.1 C H 70 54 H 91/45 L 94 03/24/21 17:10 39.1 C H 69 0 L 94 03/24/21 17:00 39.0 C H 71 0 L 94 03/24/21 16:50 39.0 C H 69 26 H 94 03/24/21 16:48 39.0 C H 70 49 H 99/54 L 94 03/24/21 16:40 38.9 C H 71 23 92 03/24/21 16:30 38.9 C H 82 35 H 94 03/24/21 16:20 38.8 C H 76 29 H 92 03/24/21 16:17 38.8 C H 77 48 H 138/79 90 03/24/21 16:10 38.8 C H 76 30 H 94 03/24/21 16:00 38.8 C H 76 43 H 91 03/24/21 15:50 38.7 C H 81 19 94 03/24/21 15:47 38.7 C H 82 58 H 141/67 H 94 03/24/21 15:40 38.7 C H 81 29 H 93 03/24/21 15:30 38.6 C H 73 16 94 03/24/21 15:20 38.5 C H 83 37 H 89 L 03/24/21 15:18 38.5 C H 77 0 L 130/100 88 L 03/24/21 15:10 38.5 C H 83 29 H 93 03/24/21 15:09 90 78 03/24/21 15:00 38.4 C H 90 27 H 93 03/24/21 14:50 38.4 C H 82 7 L 89 L 03/24/21 14:47 38.4 C H 84 38 H 162/92 H 91 03/24/21 14:40 38.4 C H 86 27 H 94 03/24/21 14:35 90 38 H 96 03/24/21 14:30 38.4 C H 94 H 38 H 98 03/24/21 14:20 38.4 C H 87 12 97 03/24/21 14:17 38.4 C H 85 26 H 147/89 H 96 03/24/21 13:00 38.4 C H 92 H 39 H 96 03/24/21 12:50 38.4 C H 95 H 24 95 03/24/21 12:48 38.4 C H 92 H 29 H 143/88 H 94 03/24/21 12:40 38.4 C H 81 23 96 03/24/21 12:30 38.4 C H 96 H 42 H 93 03/24/21 12:20 38.4 C H 91 H 31 H 03/24/21 12:17 38.4 C H 98 H 12 151/85 H 89 L 03/24/21 12:10 38.4 C H 101 H 39 H 98 03/24/21 12:00 38.4 C H 97 H 8 L 93 03/24/21 11:50 38.4 C H 98 H 32 H 89 L 03/24/21 11:48 38.4 C H 88 40 H 146/91 H 92 03/24/21 11:40 38.5 C H 96 H 35 H 91 03/24/21 11:30 38.5 C H 93 H 32 H 91 03/24/21 11:20 38.6 C H 94 H 41 H 91 03/24/21 11:18 38.6 C H 93 H 31 H 156/94 H 90 12/29/21 11:15 94 H 39 H 90 03/24/21 11:10 38.6 C H 102 H 32 H 86 L 03/24/21 11:00 38.5 C H 95 H 39 H 88 L 03/24/21 10:50 38.5 C H 97 H 32 H 86 L 03/24/21 10:48 38.4 C H 100 H 28 H 149/97 H 87 L 03/24/21 10:40 38.4 C H 102 H 35 H 81 L 03/24/21 10:30 38.3 C H 105 H 33 H 98 03/24/21 10:20 38.3 C H 97 H 32 H 82 L 03/24/21 10:18 38.3 C H 97 H 35 H 201/92 H 84 L 03/24/21 10:10 38.2 C H 101 H 25 H 98 03/24/21 10:00 38.1 C H 96 H 21 91 03/24/21 09:50 38.1 C H 93 H 32 H 90 03/24/21 09:47 38.1 C H 91 H 28 H 176/88 H 90 03/24/21 09:40 38.0 C H 84 23 91 03/24/21 09:30 37.9 C H 88 26 H 92 03/24/21 09:20 37.8 C H 81 17 92 03/24/21 09:17 37.8 C H 85 0 L 158/85 H 94 03/24/21 09:10 37.8 C H 95 H 0 L 73 L 03/24/21 09:00 37.8 C H 91 H 21 92 03/24/21 08:50 37.9 C H 84 17 93 03/24/21 08:49 37.9 C H 83 21 163/88 H 93 03/24/21 08:48 37.9 C H 82 24 162/87 H 93 03/24/21 08:40 37.9 C H 80 19 94 03/24/21 08:30 37.9 C H 79 19 93 03/24/21 08:20 38.0 C H 79 19 94 03/24/21 08:17 128/70
[2021-03-24] MEDS ORDERED: fentaNYL citrate 100 MCG/2 ML VIAL IV STA ×2 (20:40→22:01)
[2021-03-24] MEDS ORDERED: fentaNYL citrate 2,500 MCG/250 ML BAG IV SCH (23:30)
[2021-03-24] MEDS ORDERED: MIDAZOLAM HCL 125 MG/250 ML BAG IV SCH (23:30)
[2021-03-24] MEDS: MIDAZOLAM BOLUS FROM BAG IV PRN (23:57)
[2021-03-25] MEDS: MIDAZOLAM BOLUS FROM BAG IV PRN (00:57)
[2021-03-25] MEDS: DEXMEDETOMIDINE HCL 400 MCG in 0.9 % SODIUM CHLORIDE 96 ML IV SCH ×12 (01:08→19:15)
[2021-03-25] MEDS: oxyCODONE HCL IR 5 MG TAB (IMMEDIATE RELEASE) PO SCH ×4 (02:00→19:59)
[2021-03-25 03:37] LABS: iSTAT Allen Test Pass; iSTAT Art Bld Gas pCO2 Correct 89 mmHg (35-46); iSTAT Arterial Blood Gas HCO3 39 meg/L (19-24); iSTAT Arterial Blood Gas pCO2 83 mmHg (35-46); iSTAT Arterial Blood Gas pH 7.28 (7.35-7.45); iSTAT Arterial Blood Gas pO2 88 mmHg (80-95); iSTAT Arterial Blood Gas pO2 C 98; iSTAT Carbon Dioxide > 40 mmol/L (24-31); iSTAT FiO2 70 %; iSTAT Hematocrit 31 % (42-52); iSTAT Hemoglobin 10.5 g/dl (14.0-18.0); iSTAT Potassium 4.4 mmol/L (3.3-5.0); iSTAT Site L Brachial; iSTAT Sodium 140 mmol/L (135-144)
[2021-03-25] MEDS: TUBE FEEDING WATER FLUSH OG SCH ×6 (03:45→22:18)
[2021-03-25 05:50] LABS: Nucleated RBC # (auto) 0.05 K/uL (0-0); Nucleated RBC % (auto) 0.4 %
[2021-03-25 06:19] LABS: BUN Creatinine Ratio 50.8 (10-20); Calcium 8.6 mg/dl (8.5-10.1); Creatinine Clr Calc Pharmacy 170.9 ml/min; Est GFR (African American) 127.6 ml/min; Est GFR (Non-African American) 110.1 ml/min; Magnesium 2.3 mg/dl (1.8-2.4)
[2021-03-25 06:20] LABS: Phosphorus 2.9 mg/dl (2.5-4.9)
[2021-03-25] MEDS: KETAMINE / NSS 500 MG/500 ML BAG IV SCH (06:21)
[2021-03-25 06:41] LABS: Hemoglobin 9.5 g/dL (14.0-18.0); Mean Corpuscular Hemoglobin 27.7 pg (25-34); Mean Corpuscular Hgb Conc 29.7 g/dL (32-36); Mean Corpuscular Volume 93.3 fL (80-100); Mean Platelet Volume 11.3 fL (7.4-10.4); Platelet Count 147 K/uL (130-400); RDW Coefficient of Variation 16.2 % (11.5-14.5); RDW Standard Deviation 54.3 fL (36.4-46.3); Red Blood Count 3.43 M/uL (4.7-6.1); White Blood Count 12.62 K/uL (4.8-10.8)
[2021-03-25 06:42] LABS: Basophils # (auto) 0.02 K/uL (0-0.2); Basophils % (auto) 0.2 %; Eosinophils # (auto) 0.99 K/uL (0-0.5); Eosinophils % (auto) 7.8 %; Immature Granulocytes # (auto) 0.29 K/uL (0.00-0.02); Immature Granulocytes % (auto) 2.3 %; Lymphocytes # (auto) 0.56 K/uL (1.2-3.4); Lymphocytes % (auto) 4.4 %; Monocytes # (auto) 0.38 K/uL (0.11-0.59); Neutrophils # (auto) 10.38 K/uL (1.4-6.5); Neutrophils % (auto) 82.3 %; Platelet Estimate Decreased (Normal); Polychromasia 1+
[2021-03-25] MEDS: ICU ELECTROLYTE REPLACEMENT PROTOCOL SCH ×2 (06:44→17:55)
--- NOTE | 2021-03-25 08:03 | XRay Report ---
XR chest 1V portable CLINICAL HISTORY: Follow-up bilateral airspace opacities. Status post jugular catheter removal. COMPARISON STUDY: 03/24/2021 TECHNIQUE: 1 view of the chest FINDINGS: Single frontal view of the chest demonstrates the heart to again be enlarged. Tracheostomy tube is ag ain seen. Right jugular catheter has been removed. Diffuse interstitial and alveolar opacities are ag ain seen throughout both lungs and essentially unchanged. There is also evidence for left lower lobe atelectasis and left pleural effusion. There is no evidence for vascular congestion. There is no acut e osseous pathology. IMPRESSION: Diffuse interstitial and alveolar opacities are again seen and essentially unchanged. The re is also left lower lobe atelectasis/collapse and left pleural effusion. ACT 112: Negative or not required by law. Electronically signed by: Jose Emerson M.D. 03/25/2021 8:01 AM
--- NOTE | 2021-03-25 08:37 | Critical Care Progress Note ---
Date of Service March 25, 2021 Assessment & Plan (1) ARDS (adult respiratory distress syndrome): (2) Acute hypoxemic respiratory failure: (3) Pneumonia due to COVID-19 virus: Plan: Reason Critically Ill: Acute hypoxic respiratory failure secondary to COVID-19 pneumonia PLAN: Neuro: Sedation: versed individual single boluses to augment ketamine, ketamine: Wean today Precedex: Wean today Analgesia: Fentanyl to be discontinued transition to oxycodone p.o. taper ordered --History of chronic low back pain -Continue gabapentin --Mood disorder with PTSD -Converted Wellbutrin XR to immediate release, add liquid Prozac Resp: -- VDRF with acute hypoxic respiratory failure Secondary to multilobar COVID-19 pneumonia PS 15/10 55%, decrease ventilator requirements as tolerated Intubation 03/19 Tracheostomy: 03/23: Postop day 2 -Ultimately required increase sedation and intermittent neuromuscular blockade secondary to head movements and increased swelling around trach site I do not want a significant hematoma and we cannot discontinue anticoagulant secondary to acute DVTs COVID-19 PCR positive Finished azithromycin on 03/24/2021 Patient has completed 7 days of cefepime and doxycycline He has completed 10 days of dexamethasone He did get 6 days of baricitinib which was discontinued due to acute DVTs on 03/06/2021 S/p proning. Last proning was 03/21/2021 CV: --Shock: Resolved Hypertension -5 mg amlodipine per home medication ID: Febrile illness continue to monitor -Repeat blood cultures obtained 03/24 -White blood cell count decreasing -Central line and arterial line removed 03/24 GI/Nutrition: Tube feeding: Peptamen at goal via core safe feeding tube Constipation last bowel movement 03/16 -Lactulose 30 mL x 1 -Colace twice daily Heme: --Acute DVTs Continue with therapeutic Lovenox DVT prophylaxis: Therapeutic Lovenox Endocrine: ICU hyperglycemia protocol Vascular access: Peripheral IVs invasive lines discontinued 03/24 Code Status: Full Disposition: ICU --Prognosis guarded Patient's Mellissa: [phone] Updated the patient's of status Admission and Anticipated Discharge Date Admission Date: March 01, 2021 Supervising Physician Co-Signing Physician Notes I have personally spent 55 minutes of critical care time in the direct management of this patient. This is a life/limb threatening event. This includes time spent evaluating patient, direct bedside care, chart review, placing orders, interpretation of diagnostic studies, discussion with consultants, patient, and/or family members regarding treatment decisions, as well as other required patient management activities. This time is exclusive of all separately billable procedures, and teaching time and separate from and in addition to any other critical care service time. Subjective Required sedation overnight for increasing movements moving head back and forth irritating trach which is oozing Review of Systems Review of Systems: Unobtainable due to tracheostomy tube Physical Exam Physical Exam: General: Somnolent. nontoxic. CAM ICU positive Skin: Warm, dry, Head: Atraumatic Ears, nose, mouth and throat: airway patent, tracheostomy tube in place -Area of hematoma around tube with ecchymosis Cardiovascular: Normal peripheral perfusion Respiratory: Ventilator settings reviewed Gastrointestinal: Non distended Musculoskeletal: No deformity Results & Data Results & Data ([facility]) Vital Signs (Past 12 Hours) Vital Signs Temp Pulse Resp BP Pulse Ox 03/25/21 08:21 80 36 H 91 03/25/21 05:57 35.8 C L 03/25/21 04:00 36.8 C 57 L 25 H 91 03/25/21 03:48 57 L 32 H 103/59 L 91 03/25/21 03:30 60 29 H 90 03/25/21 03:25 26 H 03/25/21 03:18 64 23 110/55 L 95 03/25/21 03:00 61 21 93 03/25/21 02:54 38.9 C H 03/25/21 02:48 65 21 110/72 93 03/25/21 02:30 61 22 93 03/25/21 02:18 66 26 H 137/60 94 03/25/21 02:15 25 H 92 03/25/21 02:05 73 24 91 03/25/21 02:00 39.2 C H 03/25/21 01:48 80 22 161/69 H 90 03/25/21 01:40 84 29 H 163/93 H 89 L 03/25/21 01:30 85 29 H 89 L 03/25/21 01:15 85 24 88 L 03/25/21 01:03 87 28 H 203/113 H 88 L 03/25/21 01:00 86 33 H 88 L 03/25/21 00:45 39.5 C H 85 22 88 L 03/25/21 00:30 39.3 C H 83 33 H 87 L 03/25/21 00:21 83 03/25/21 00:19 39.2 C H 86 38 H 188/115 H 90 03/25/21 00:18 39.2 C H 86 48 H 190/104 H 90 03/25/21 00:15 39.2 C H 80 43 H 91 03/25/21 00:05 20 03/25/21 00:00 39.2 C H 72 39 H 94 03/24/21 23:47 39.1 C H 79 38 H 133/79 91 03/24/21 23:45 39.1 C H 76 0 L 92 03/24/21 23:30 39.1 C H 78 21 92 03/24/21 23:17 39.2 C H 80 23 104/76 93 03/24/21 23:15 39.2 C H 77 14 98 03/24/21 23:00 39.2 C H 71 0 L 94 03/24/21 22:48 39.1 C H 67 27 H 109/60 93 03/24/21 22:45 39.1 C H 66 26 H 93 03/24/21 22:30 39.1 C H 73 32 H 93 03/24/21 22:18 39.1 C H 77 20 136/65 88 L 03/24/21 22:15 39.1 C H 74 31 H 91 03/24/21 22:00 39.1 C H 70 25 H 91 03/24/21 21:48 39.1 C H 70 35 H 91/65 L 91 03/24/21 21:45 39.1 C H 69 34 H 95 03/24/21 21:30 39.2 C H 66 31 H 94 03/24/21 21:25 39.2 C H 66 26 H 98/51 L 94 03/24/21 21:18 39.2 C H 65 27 H 85/47 L 93 03/24/21 21:15 39.2 C H 65 22 93 03/24/21 21:00 39.1 C H 63 24 93 03/24/21 20:47 39.1 C H 78 0 L 127/67 93 03/24/21 20:45 39.1 C H 80 26 H 93 Laboratory Results 03/25/21 03/25/21 03/25/21 Range/Units 12:25 05:22 05:22 WBC 12.62 H (4.8-10.8) K/uL RBC 3.43 L (4.7-6.1) M/uL Hgb 9.5 L (14.0-18.0) g/dL POC Hgb (14.0-18.0) g/dl Hct 32.0 L (42-52) % POC Hct (42-52) % MCV 93.3 (80-100) fL MCH 27.7 (25-34) pg MCHC 29.7 L (32-36) g/dL RDW Std Deviation 54.3 H (36.4-46.3) fL RDW Coeff of Natali 16.2 H (11.5-14.5) % Plt Count 147 D (130-400) K/uL MPV 11.3 H (7.4-10.4) fL Immature Gran % (Auto) 2.3 % Neut % (Auto) 82.3 % Lymph % (Auto) 4.4 % [place] % (Auto) 3.0 % Eos % (Auto) 7.8 % Baso % (Auto) 0.2 % Neut # (Auto) 10.38 H (1.4-6.5) K/uL Lymph # (Auto) 0.56 L (1.2-3.4) K/uL [place] # (Auto) 0.38 (0.11-0.59) K/uL Eos # (Auto) 0.99 H (0-0.5) K/uL Baso # (Auto) 0.02 (0-0.2) K/uL Immature Gran # (Auto) 0.29 H (0.00-0.02) K/uL Absolute Nucleated RBC 0.05 H (0-0) K/uL Nucleated RBC % (auto) 0.4 % Platelet Estimate Decreased L (Normal) Polychromasia 1+ Sample Site POC pH (7.35-7.45) POC pCO2 (35-46) mmHg POC pO2 (80-95) mmHg POC HCO3 (19-24) cheri/L POC Total CO2 (24-31) mmol/L POC Base Excess (-9-1.8) cheri/L ABG pH (Temp Correct) (7.35-7.45) ABG pCO2 (Temp Corrct (35-46) mmHg POC ABG pO2 at Pt Temp POC ABG O2 Sat (90-95) % Rafa Test O2 Delivery Device POC O2 Rate POC FiO2 % Tidal Volume PEEP POC Sodium (135-144) mmol/L Sodium 141 (136-145) mmol/L POC Potassium (3.3-5.0) mmol/L Potassium 4.0 (3.5-5.1) mmol/L Chloride 108 H (98-107) mmol/L Carbon Dioxide 31 (21-32) mmol/L Anion Gap 2.0 L (3-11) BUN 31 H (7-18) mg/dl Creatinine 0.61 (0.6-1.4) mg/dl Est Cr Clr Drug Dosing 170.9 ml/min Est GFR ( Amer) 127.6 ml/min Est GFR (Non-Af Amer) 110.1 ml/min BUN/Creatinine Ratio 50.8 H (10-20) Glucose 182 H (70-99) mg/dl POC Glucose 131 H (70-99) mg/dl Calcium 8.6 (8.5-10.1) mg/dl Phosphorus 2.9 (2.5-4.9) mg/dl Magnesium 2.3 (1.8-2.4) mg/dl 03/25/21 Range/Units 03:20 WBC (4.8-10.8) K/uL RBC (4.7-6.1) M/uL Hgb (14.0-18.0) g/dL POC Hgb 10.5 L (14.0-18.0) g/dl Hct (42-52) % POC Hct 31 L (42-52) % MCV (80-100) fL MCH (25-34) pg MCHC (32-36) g/dL RDW Std Deviation (36.4-46.3) fL RDW Coeff of Natali (11.5-14.5) % Plt Count (130-400) K/uL MPV (7.4-10.4) fL Immature Gran % (Auto) % Neut % (Auto) % Lymph % (Auto) % [place] % (Auto) % Eos % (Auto) % Baso % (Auto) % Neut # (Auto) (1.4-6.5) K/uL Lymph # (Auto) (1.2-3.4) K/uL [place] # (Auto) (0.11-0.59) K/uL Eos # (Auto) (0-0.5) K/uL Baso # (Auto) (0-0.2) K/uL Immature Gran # (Auto) (0.00-0.02) K/uL Absolute Nucleated RBC (0-0) K/uL Nucleated RBC % (auto) % Platelet Estimate (Normal) Polychromasia Sample Site L Brachial POC pH 7.28 L (7.35-7.45) POC pCO2 83 H (35-46) mmHg POC pO2 88 (80-95) mmHg POC HCO3 39 H (19-24) cheri/L POC Total CO2 > 40 H* (24-31) mmol/L POC Base Excess 12.0 H (-9-1.8) cheri/L ABG pH (Temp Correct) 7.260 L (7.35-7.45) ABG pCO2 (Temp Corrct 89 H (35-46) mmHg POC ABG pO2 at Pt Temp 98 POC ABG O2 Sat 95.0 (90-95) % Rafa Test Pass O2 Delivery Device Ventilator POC O2 Rate 20 POC FiO2 70 % Tidal Volume 370 PEEP 10 POC Sodium 140 (135-144) mmol/L Sodium (136-145) mmol/L POC Potassium 4.4 (3.3-5.0) mmol/L Potassium (3.5-5.1) mmol/L Chloride (98-107) mmol/L Carbon Dioxide (21-32) mmol/L Anion Gap (3-11) BUN (7-18) mg/dl Creatinine (0.6-1.4) mg/dl Est Cr Clr Drug Dosing ml/min Est GFR ( Amer) ml/min Est GFR (Non-Af Amer) ml/min BUN/Creatinine Ratio (10-20) Glucose (70-99) mg/dl POC Glucose (70-99) mg/dl Calcium (8.5-10.1) mg/dl Phosphorus (2.5-4.9) mg/dl Magnesium (1.8-2.4) mg/dl Coding Level of Care Code Critical Care 1st 30-74 mins Diagnoses ARDS (adult respiratory distress syndrome) J80 Acute hypoxemic respiratory failure J96.01 Pneumonia due to COVID-19 virus U07.1; J12.82
[2021-03-25] MEDS ORDERED: MIDAZOLAM HCL 1 MG/ML 2ML VIAL IV STA (08:46)
[2021-03-25] MEDS: MIDAZOLAM HCL 1 MG/ML 2ML VIAL IV PRN ×3 (08:49→23:26)
[2021-03-25] MEDS: FLUoxetine HCL 20 MG/5 ML 120ML BTL PO SCH (09:00)
[2021-03-25] MEDS: FUROSEMIDE 40 MG/4 ML VIAL IV SCH (09:00)
[2021-03-25] MEDS: SENNOSIDES 8.8 MG/5 ML UDC PO SCH (09:00)
[2021-03-25] MEDS: amLODIPine BESYLATE 5 MG TAB PO SCH (09:00)
[2021-03-25] MEDS: GABAPENTIN 250 MG/5 ML 470 ML BTL PO SCH ×3 (09:00→20:01)
[2021-03-25] MEDS: LANSOPRAZOLE 30 MG SOLTAB NG SCH (09:00)
[2021-03-25] MEDS: ENOXAPARIN INJ 120 MG/0.8 ML SYR SQ SCH ×2 (09:01→19:58)
[2021-03-25] MEDS: buPROPion HCl 100 MG TABLET PO SCH ×3 (09:01→19:59)
[2021-03-25] MEDS: dexAMETHasone 10 MG in SYRINGE 0 ML IV SCH (09:02)
[2021-03-25] MEDS ORDERED: LACTULOSE SYRUP 30 GM/45 ML UDP PO STA (09:37)
[2021-03-25] MEDS: DOCUSATE SODIUM SYRUP 100 MG/10 ML UDC PO SCH ×2 (10:49→19:59)
--- NOTE | 2021-03-25 11:59 | XRay Report ---
KUB CLINICAL HISTORY: Enteric tube placement. FINDINGS: An AP, portable, semierect abdominal radiograph is compared to study dated 03/15/2021. An e nteric tube is in place. The tip projects below the diaphragm over the proximal stomach. There is no evidence of bowel obstruction. Moderate fecal retention is noted throughout the imaged colon. Cholecy stectomy clips are seen in the right upper quadrant. Airspace consolidation is noted at both lung bas es. IMPRESSION: An enteric tube is in place as above. Electronically signed by: Jesse Peguero M.D. 03/25/2021 11:58 AM
[2021-03-25] MEDS ORDERED: STAT IV Infusion **Titration per Protocol STA (12:22)
[2021-03-25] MEDS ORDERED: PROPOFOL BOLUS FROM BAG IV PRN (12:22)
[2021-03-25] MEDS: propofoL 1,000 MG/100 ML VIAL IV SCH ×4 (12:36→23:54)
[2021-03-25] MEDS: ROCURONIUM BROMIDE 10 MG/ML 5 ML VIAL IV PRN ×6 (12:36→19:42)
[2021-03-25] MEDS: INSULIN ASPART PER UNIT SC SCH ×2 (12:41→19:20)
[2021-03-25] MEDS: ACETAMINOPHEN 325 MG TAB PO PRN (13:48)
--- NOTE | 2021-03-25 15:22 | Hospitalist Progress Note ---
Date of Service March 25, 2021 Assessment & Plan (1) Acute hypoxemic respiratory failure: Plan: Acute respiratory failure with hypoxia Multifocal COVID pneumonia COVID Screen: Positive 02/28/21 CTA:No CTA evidence for pulmonary embolus. Extensive groundglass opacities are present throughout both lungs characteristic of a viral type pneumonitis Completed dexamethasone 10 days course Got baricitinib given for 6 days but discontinued due to acute DVTs (03/06/21) Had completed abx with cefepime and doxycycline for 7 days Remdesivir discontinued by pulmonary service Was on HFNC and with worsening resp status, was put on NIV and subsequently intubated on 03/19/21 Tracheostomy 03/23, on MV Vent and sedation management per tool crib supervisor Concern for developing fibrosis Finished azithro 03/24 and on dexamethasone WBC trending down as of late. Patient is having low-grade fever, 03/24 blood culture pending, management per ICU. Deep venous thrombosis posterior tibial and peroneal veins In the setting of COVID-19 infection & baricitinib use Patient reports family history of blood clots Continue Lovenox 120 mg subcu twice daily Can do NOAC on discharge Mild indirect bilirubinemia, elevated alk phos Resolved Liver ultrasound:The liver is normal in size and echogenicity. Incidental note is made of a small cyst within the liver. Hyponatremia Hypokalemia monitor and replet as appropriate Hold HCTZ for now while on iv lasix Hypertension Antihypertensive on hold while on sedation Chronic back pain Patient plans to follow up with Neurosurgery as outpatient Mood disorder/PTSD DVT Px: On Lovenox SQ Full code Admission and Anticipated Discharge Date Admission Date: March 01, 2021 Subjective Patient was lying in bed, mechanically ventilated and sedated, tracheostomy status. Per RN patient has twitching movements of head and neck, patient was sedated with Versed and fentanyl overnight as she was more agitated. ROS not assessable. Physical Exam Physical Exam: GENERAL: Sedated, tracheostomy status, on mechanical ventilation. HEENT: No pallor, no icterus. Pupils equal, round and reactive to light. Oral mucosa moist. NECK: No JVD, no neck masses. Jerking movements of head and neck noted. HEART: S1 and S2 heard. Regular rate and rhythm. No murmur, no gallop. RESPIRATORY SYSTEM: Normal AP diameter. No accessory muscle use. No wheezing, bilateral conducted breath sounds. ABDOMEN: Soft, bowel sounds present, no distention. CENTRAL NERVOUS SYSTEM: n/a EXTREMITIES: Trace BLE edema, no erythema seen. Urinary catheter with yellow urine collection. Results & Data Results & Data ([facility]) Vital Signs (Past 12 Hours) Vital Signs Temp Pulse Resp BP Pulse Ox 03/25/21 11:42 85 51 H 96 03/25/21 08:21 80 36 H 91 03/25/21 05:57 35.8 C L 03/25/21 04:00 36.8 C 57 L 25 H 91 03/25/21 03:48 57 L 32 H 103/59 L 91 03/25/21 03:30 60 29 H 90 03/25/21 03:25 26 H
[2021-03-25 18:28] LABS: Appearance Urine Cloudy (Clear); Bacteria Urine Automated Negative (Negative); Bilirubin Urine Negative (Negative); Blood Urine 1+ (Negative); Color Urine Dark Yellow; Epithelial Cell Urine Auto >30 /lpf (0-5); Glucose Urine UA Negative (Negative); Ketones Urine Negative (Negative); Leukocyte Esterase Urine Negative (Negative); Nitrite Urine Negative (Negative); Protein Urine 1+ (Negative); RBC Urine Automated >30 /hpf (0-4); Specific Gravity Urine 1.024 (1.000-1.030); Urobilinogen Urine Negative (Negative); pH Urine 5.5 (4.5-7.5)
[2021-03-25 18:54] LABS: Granular Casts Urine 20-30 /lpf (0)
[2021-03-26] MEDS: INSULIN ASPART PER UNIT SC SCH ×5 (00:05→20:28)
[2021-03-26] MEDS: ROCURONIUM BROMIDE 10 MG/ML 5 ML VIAL IV PRN ×6 (00:27→09:20)
[2021-03-26] MEDS: DEXMEDETOMIDINE HCL 400 MCG in 0.9 % SODIUM CHLORIDE 96 ML IV SCH ×4 (00:41→12:09)
[2021-03-26] MEDS: oxyCODONE HCL IR 5 MG TAB (IMMEDIATE RELEASE) PO SCH ×4 (02:29→20:20)
[2021-03-26] MEDS: propofoL 1,000 MG/100 ML VIAL IV SCH ×6 (03:35→22:07)
[2021-03-26 04:05] LABS: iSTAT Art Bld Gas pCO2 Correct 81 mmHg (35-46); iSTAT Arterial Blood Gas HCO3 42 meg/L (19-24); iSTAT Arterial Blood Gas pCO2 81 mmHg (35-46); iSTAT Arterial Blood Gas pH 7.32 (7.35-7.45); iSTAT Arterial Blood Gas pO2 76 mmHg (80-95); iSTAT Arterial Blood Gas pO2 C 76; iSTAT Carbon Dioxide > 40 mmol/L (24-31); iSTAT FiO2 60 %; iSTAT Hematocrit 33 % (42-52); iSTAT Hemoglobin 11.2 g/dl (14.0-18.0); iSTAT Potassium 4.3 mmol/L (3.3-5.0); iSTAT Site L Brachial; iSTAT Sodium 137 mmol/L (135-144)
[2021-03-26] MEDS: cefTRIAXone SODIUM 2,000 MG in DEXTROSE 5% 50 ML IV SCH (04:11)
[2021-03-26] MEDS: TUBE FEEDING WATER FLUSH OG SCH ×5 (04:11→20:25)
[2021-03-26 05:54] LABS: Hematocrit (blood only) 36.4 % (42-52); Hemoglobin 11.1 g/dL (14.0-18.0); Mean Corpuscular Hemoglobin 29.6 pg (25-34); Mean Corpuscular Hgb Conc 30.5 g/dL (32-36); Mean Corpuscular Volume 97.1 fL (80-100); Platelet Count 367 K/uL (130-400); RDW Coefficient of Variation 13.1 % (11.5-14.5); RDW Standard Deviation 46.5 fL (36.4-46.3); Red Blood Count 3.75 M/uL (4.7-6.1); White Blood Count 19.72 K/uL (4.8-10.8)
[2021-03-26 06:05] LABS: Basophils # (auto) 0.02 K/uL (0-0.2); Basophils % (auto) 0.1 %; Eosinophils # (auto) 0.02 K/uL (0-0.5); Eosinophils % (auto) 0.1 %; Immature Granulocytes # (auto) 0.33 K/uL (0.00-0.02); Immature Granulocytes % (auto) 1.7 %; Lymphocytes # (auto) 1.59 K/uL (1.2-3.4); Lymphocytes % (auto) 8.1 %; Monocytes # (auto) 2.52 K/uL (0.11-0.59); Monocytes % (auto) 12.8 %; Neutrophils # (auto) 15.24 K/uL (1.4-6.5); Neutrophils % (auto) 77.2 %; Polychromasia 1+; Rouleaux 1+
[2021-03-26 06:08] LABS: BUN Creatinine Ratio 61.9 (10-20); Calcium 9.8 mg/dl (8.5-10.1); Creatinine Clr Calc Pharmacy 142.8 ml/min; Est GFR (African American) 118.5 ml/min; Est GFR (Non-African American) 102.2 ml/min; Magnesium 2.8 mg/dl (1.8-2.4); Potassium 4.5 mmol/L (3.5-5.1)
[2021-03-26 06:16] LABS: Phosphorus 3.9 mg/dl (2.5-4.9)
[2021-03-26] MEDS: ICU ELECTROLYTE REPLACEMENT PROTOCOL SCH ×2 (06:18→17:39)
--- NOTE | 2021-03-26 07:37 | XRay Report ---
XR chest 1V portable CLINICAL HISTORY: Resp failure. COMPARISON STUDY: 03/25/2021 TECHNIQUE: 1 view of the chest FINDINGS: Single frontal view of the chest demonstrates the heart to again be enlarged. Tracheostomy tube is un changed. Compared to previous examination, there is slight interval improvement of extensive intersti tial and alveolar opacities bilaterally. There is also blunting of left costophrenic angle characteri stic of a small left pleural effusion. There is no evidence for vascular congestion. There is no acut e osseous pathology. IMPRESSION: Slight interval improvement of extensive interstitial and alveolar opacities bilaterally. This also evidence for a small left pleural effusion. ACT 112: Negative or not required by law. Electronically signed by: Jose Emerson M.D. 03/26/2021 7:36 AM
[2021-03-26] MEDS: SENNOSIDES 8.8 MG/5 ML UDC PO SCH (08:14)
[2021-03-26] MEDS: DOCUSATE SODIUM SYRUP 100 MG/10 ML UDC PO SCH ×2 (08:14→20:21)
[2021-03-26] MEDS: LANSOPRAZOLE 30 MG SOLTAB NG SCH (08:14)
[2021-03-26] MEDS: FUROSEMIDE 40 MG/4 ML VIAL IV SCH (08:14)
[2021-03-26] MEDS: buPROPion HCl 100 MG TABLET PO SCH ×3 (08:15→20:20)
[2021-03-26] MEDS: amLODIPine BESYLATE 5 MG TAB PO SCH (08:15)
[2021-03-26] MEDS: FLUoxetine HCL 20 MG/5 ML 120ML BTL PO SCH (08:15)
[2021-03-26] MEDS: ENOXAPARIN INJ 120 MG/0.8 ML SYR SQ SCH ×2 (08:15→20:21)
[2021-03-26] MEDS: dexAMETHasone 10 MG in SYRINGE 0 ML IV SCH (08:17)
[2021-03-26] MEDS: GABAPENTIN 250 MG/5 ML 470 ML BTL PO SCH ×3 (08:17→20:23)
[2021-03-26] MEDS ORDERED: LACTULOSE SYRUP 20 GM/30 ML UDC PO ONE (09:38)
--- NOTE | 2021-03-26 09:45 | Critical Care Progress Note ---
Date of Service March 26, 2021 Assessment & Plan (1) ARDS (adult respiratory distress syndrome): (2) Acute hypoxemic respiratory failure: (3) Pneumonia due to COVID-19 virus: Plan: Reason Critically Ill: Acute hypoxic respiratory failure secondary to COVID-19 pneumonia PLAN: Neuro: Sedation: Goal RASS -4 -5 Analgesia: Oxycodone 15 mg every 6 hours to continue until weaning sedation further NMB: Reinitiate cis atracurium secondary to induced hematoma at surgical site -We will attempt to limits S atracurium once more deeply sedated --History of chronic low back pain -Continue gabapentin --Mood disorder with PTSD -Converted Wellbutrin XR to immediate release, add liquid Prozac Resp: -- VDRF with acute hypoxic respiratory failure Secondary to multilobar COVID-19 pneumonia 370, RR 26 FiO50 peep 10 -Did not tolerate decreased to FiO2 of 40% somewhat stalled in improvement Intubation 03/19 Tracheostomy: 03/23: Postop day 3 -Ultimately requiring increase sedation and neuromuscular blockade infusion secondary to head movements and increased swelling around trach site I do not want a significant hematoma and we cannot discontinue anticoagulant secondary to acute DVTs COVID-19 PCR positive Finished azithromycin on 03/24/2021 Patient has completed 7 days of cefepime and doxycycline He has completed 10 days of dexamethasone He did get 6 days of baricitinib which was discontinued due to acute DVTs on 03/06/2021 S/p proning. Last proning was 03/21/2021 CV: --Shock: Resolved Hypertension -5 mg amlodipine per home medication ID: Febrile illness -Repeat blood cultures obtained 03/24 -1 bottle positive for cocci in chains -We will order repeat cultures for today -Central line and arterial line removed 03/24 -On Rocephin day 1 -LFTs ordered for a.m. -Oxygen requirements unchanged Renal: Lasix 40 mg daily GI/Nutrition: Tube feeding: Peptamen at goal via core safe feeding tube -As patient has been tolerating tube feeds we will continue despite aggressive sedation/paralytic medication Constipation last bowel movement 03/16 -Getting methylnaltrexone second dose today -Colace twice daily Heme: --Acute DVTs Continue with therapeutic Lovenox DVT prophylaxis: Therapeutic Lovenox Endocrine: ICU hyperglycemia protocol Vascular access: Peripheral IVs invasive lines discontinued 03/24 Code Status: Full Disposition: ICU --Prognosis guarded Patient's Mellissa: [phone] Admission and Anticipated Discharge Date Admission Date: March 01, 2021 Supervising Physician Co-Signing Physician Notes I have personally spent 40 minutes of critical care time in the direct management of this patient. This is a life/limb threatening event. This includes time spent evaluating patient, direct bedside care, chart review, placing orders, interpretation of diagnostic studies, discussion with consultants, patient, and/or family members regarding treatment decisions, as well as other required patient management activities. This time is exclusive of all separately billable procedures, and teaching time and separate from and in addition to any other critical care service time. Subjective Overnight required neuromuscular blockade secondary to continued aggressive movements of the head Review of Systems Review of Systems: Unobtainable due to tracheostomy tube Physical Exam Physical Exam: General: GCS 3 TP Skin: Warm, dry, Head: Atraumatic Ears, nose, mouth and throat: airway patent, tracheostomy tube in place -Area of hematoma around tube with ecchymosis Cardiovascular: Normal peripheral perfusion Respiratory: Ventilator settings reviewed Gastrointestinal: Non distended Musculoskeletal: No deformity Results & Data Results & Data ([facility]) Vital Signs (Past 12 Hours) Vital Signs Temp Pulse Resp BP Pulse Ox 03/26/21 07:45 84 30 H 94 03/26/21 05:20 85 30 H 92 03/26/21 05:10 87 28 H 92 03/26/21 05:00 90 26 H 91 03/26/21 04:50 95 H 26 H 91 03/26/21 04:47 92 H 26 H 175/86 H 91 03/26/21 04:40 83 31 H 91 03/26/21 04:30 81 31 H 91 03/26/21 04:20 82 30 H 92 03/26/21 04:17 82 29 H 161/78 H 92 03/26/21 04:10 80 28 H 92 03/26/21 04:00 37 C 77 29 H 94 03/26/21 03:58 77 26 H 94 03/26/21 03:50 81 29 H 95 03/26/21 03:48 83 24 151/81 H 95 03/26/21 03:40 87 28 H 96 03/26/21 03:30 81 27 H 96 03/26/21 03:20 84 26 H 96 03/26/21 03:17 85 26 H 158/84 H 96 03/26/21 03:10 83 26 H 96 03/26/21 03:00 86 26 H 95 03/26/21 02:50 86 26 H 95 03/26/21 02:48 82 26 H 175/94 H 95 03/26/21 02:40 67 31 H 94 03/26/21 02:30 54 L 26 H 92 03/26/21 02:20 62 25 H 94 03/26/21 02:17 61 24 104/61 94 03/26/21 02:10 61 24 94 03/26/21 02:00 62 23 95 03/26/21 01:50 63 24 95 03/26/21 01:47 62 25 H 106/60 95 03/26/21 01:40 62 24 96 03/26/21 01:30 62 27 H 96 03/26/21 01:20 62 26 H 96 03/26/21 01:17 61 27 H 106/62 96 03/26/21 01:10 62 26 H 97 03/26/21 01:00 63 27 H 97 03/26/21 00:50 64 26 H 96 03/26/21 00:47 65 26 H 112/63 96 03/26/21 00:40 65 26 H 96 03/26/21 00:30 63 25 H 96 03/26/21 00:20 62 24 96 03/26/21 00:17 37 C 111/61 03/26/21 00:00 63 03/25/21 22:25 63 28 H 94 Laboratory Results 03/26/21 03/26/21 03/26/21 Range/Units 05:57 05:22 05:22 WBC 19.72 H (4.8-10.8) K/uL RBC 3.75 L (4.7-6.1) M/uL Hgb 11.1 L (14.0-18.0) g/dL POC Hgb (14.0-18.0) g/dl Hct 36.4 L (42-52) % POC Hct (42-52) % MCV 97.1 (80-100) fL MCH 29.6 (25-34) pg MCHC 30.5 L (32-36) g/dL RDW Std Deviation 46.5 H (36.4-46.3) fL RDW Coeff of Natali 13.1 (11.5-14.5) % Plt Count 367 D (130-400) K/uL MPV 10.0 (7.4-10.4) fL Immature Gran % (Auto) 1.7 % Neut % (Auto) 77.2 % Lymph % (Auto) 8.1 % Storey % (Auto) 12.8 % Eos % (Auto) 0.1 % Baso % (Auto) 0.1 % Neut # (Auto) 15.24 H (1.4-6.5) K/uL Lymph # (Auto) 1.59 (1.2-3.4) K/uL Storey # (Auto) 2.52 H (0.11-0.59) K/uL Eos # (Auto) 0.02 (0-0.5) K/uL Baso # (Auto) 0.02 (0-0.2) K/uL Immature Gran # (Auto) 0.33 H (0.00-0.02) K/uL Polychromasia 1+ Rouleaux 1+ Sample Site POC pH (7.35-7.45) POC pCO2 (35-46) mmHg POC pO2 (80-95) mmHg POC HCO3 (19-24) cheri/L POC Total CO2 (24-31) mmol/L POC Base Excess (-9-1.8) cheri/L ABG pH (Temp Correct) (7.35-7.45) ABG pCO2 (Temp Corrct (35-46) mmHg POC ABG pO2 at Pt Temp POC ABG O2 Sat (90-95) % Rafa Test O2 Delivery Device POC O2 Rate POC FiO2 % Tidal Volume PEEP POC Sodium (135-144) mmol/L Sodium 138 (136-145) mmol/L POC Potassium (3.3-5.0) mmol/L Potassium 4.5 (3.5-5.1) mmol/L Chloride 100 (98-107) mmol/L Carbon Dioxide 38 H (21-32) mmol/L Anion Gap 0 L (3-11) BUN 45 H (7-18) mg/dl Creatinine 0.73 (0.6-1.4) mg/dl Est Cr Clr Drug Dosing 142.8 ml/min Est GFR ( Amer) 118.5 ml/min Est GFR (Non-Af Amer) 102.2 ml/min BUN/Creatinine Ratio 61.9 H (10-20) Glucose 173 H (70-99) mg/dl POC Glucose 151 H (70-99) mg/dl Calcium 9.8 (8.5-10.1) mg/dl Phosphorus 3.9 D (2.5-4.9) mg/dl Magnesium 2.8 H (1.8-2.4) mg/dl Urine Color Urine Appearance (Clear) Urine pH (4.5-7.5) Ur Specific [place] (1.000-1.030) Urine Protein (Negative) Urine Glucose (UA) (Negative) Urine Ketones (Negative) Urine Blood (Negative) Urine Nitrite (Negative) Urine Bilirubin (Negative) Urine Urobilinogen (Negative) Ur Leukocyte Esterase (Negative) Urine WBC (Auto) (0-5) /hpf Urine RBC (Auto) (0-4) /hpf U Hyaline Cast (Auto) (0-5) /lpf U Epithel Cells (Auto) (0-5) /lpf Urine Bacteria (Auto) (Negative) Ur Renal Epithelial Cell Granular Casts (0) /lpf 03/26/21 03/26/21 03/25/21 Range/Units 03:51 00:03 17:50 WBC (4.8-10.8) K/uL RBC (4.7-6.1) M/uL Hgb (14.0-18.0) g/dL POC Hgb 11.2 L (14.0-18.0) g/dl Hct (42-52) % POC Hct 33 L (42-52) % MCV (80-100) fL MCH (25-34) pg MCHC (32-36) g/dL RDW Std Deviation (36.4-46.3) fL RDW Coeff of Natali (11.5-14.5) % Plt Count (130-400) K/uL MPV (7.4-10.4) fL Immature Gran % (Auto) % Neut % (Auto) % Lymph % (Auto) % Storey % (Auto) % Eos % (Auto) % Baso % (Auto) % Neut # (Auto) (1.4-6.5) K/uL Lymph # (Auto) (1.2-3.4) K/uL Storey # (Auto) (0.11-0.59) K/uL Eos # (Auto) (0-0.5) K/uL Baso # (Auto) (0-0.2) K/uL Immature Gran # (Auto) (0.00-0.02) K/uL Polychromasia Rouaux Sample Site L Brachial POC pH 7.32 L (7.35-7.45) POC pCO2 81 H (35-46) mmHg POC pO2 76 L (80-95) mmHg POC HCO3 42 H (19-24) cheri/L POC Total CO2 > 40 H* (24-31) mmol/L POC Base Excess 16.0 H (-9-1.8) cheri/L ABG pH (Temp Correct) 7.320 L (7.35-7.45) ABG pCO2 (Temp Corrct 81 H (35-46) mmHg POC ABG pO2 at Pt Temp 76 POC ABG O2 Sat 93.0 (90-95) % Rafa Test NA O2 Delivery Device Ventilator POC O2 Rate 26 POC FiO2 60 % Tidal Volume 370 PEEP 10 POC Sodium 137 (135-144) mmol/L Sodium (136-145) mmol/L POC Potassium 4.3 (3.3-5.0) mmol/L Potassium (3.5-5.1) mmol/L Chloride (98-107) mmol/L Carbon Dioxide (21-32) mmol/L Anion Gap (3-11) BUN (7-18) mg/dl Creatinine (0.6-1.4) mg/dl Est Cr Clr Drug Dosing ml/min Est GFR ( Amer) ml/min Est GFR (Non-Af Amer) ml/min BUN/Creatinine Ratio (10-20) Glucose (70-99) mg/dl POC Glucose 155 H (70-99) mg/dl Calcium (8.5-10.1) mg/dl Phosphorus (2.5-4.9) mg/dl Magnesium (1.8-2.4) mg/dl Urine Color Dark Yellow Urine Appearance Cloudy A (Clear) Urine pH 5.5 (4.5-7.5) Ur Specific [place] 1.024 (1.000-1.030) Urine Protein 1+ H (Negative) Urine Glucose (UA) Negative (Negative) Urine Ketones Negative (Negative) Urine Blood 1+ H (Negative) Urine Nitrite Negative (Negative) Urine Bilirubin Negative (Negative) Urine Urobilinogen Negative (Negative) Ur Leukocyte Esterase Negative (Negative) Urine WBC (Auto) 5-10 H (0-5) /hpf Urine RBC (Auto) >30 H (0-4) /hpf U Hyaline Cast (Auto) 10-30 H (0-5) /lpf U Epithel Cells (Auto) >30 H (0-5) /lpf Urine Bacteria (Auto) Negative (Negative) Ur Renal Epithelial Cell Not Reportable Granular Casts 20-30 H (0) /lpf 03/25/ Range/Units 12:25 WBC (4.8-10.8) K/uL RBC (4.7-6.1) M/uL Hgb (14.0-18.0) g/dL POC Hgb (14.0-18.0) g/dl Hct (42-52) % POC Hct (42-52) % MCV (80-100) fL MCH (25-34) pg MCHC (32-36) g/dL RDW Std Deviation (36.4-46.3) fL RDW Coeff of Natali (11.5-14.5) % Plt Count (130-400) K/uL MPV (7.4-10.4) fL Immature Gran % (Auto) % Neut % (Auto) % Lymph % (Auto) % Storey % (Auto) % Eos % (Auto) % Baso % (Auto) % Neut # (Auto) (1.4-6.5) K/uL Lymph # (Auto) (1.2-3.4) K/uL [place]y # (Auto) (0.11-0.59) K/uL Eos # (Auto) (0-0.5) K/uL Baso # (Auto) (0-0.2) K/uL Immature Gran # (Auto) (0.00-0.02) K/uL Polychromasia [facility] Sample Site POC pH (7.35-7.45) POC pCO2 (35-46) mmHg POC pO2 (80-95) mmHg POC HCO3 (19-24) cheri/L POC Total CO2 (24-31) mmol/L POC Base Excess (-9-1.8) cheri/L ABG pH (Temp Correct) (7.35-7.45) ABG pCO2 (Temp Corrct (35-46) mmHg POC ABG pO2 at Pt Temp POC ABG O2 Sat (90-95) % Rafa Test O2 Delivery Device POC O2 Rate POC FiO2 % Tidal Volume PEEP POC Sodium (135-144) mmol/L Sodium (136-145) mmol/L POC Potassium (3.3-5.0) mmol/L Potassium (3.5-5.1) mmol/L Chloride (98-107) mmol/L Carbon Dioxide (21-32) mmol/L Anion Gap (3-11) BUN (7-18) mg/dl Creatinine (0.6-1.4) mg/dl Est Cr Clr Drug Dosing ml/min Est GFR ( Amer) ml/min Est GFR (Non-Af Amer) ml/min BUN/Creatinine Ratio (10-20) Glucose (70-99) mg/dl POC Glucose 131 H (70-99) mg/dl Calcium (8.5-10.1) mg/dl Phosphorus (2.5-4.9) mg/dl Magnesium (1.8-2.4) mg/dl Urine Color Urine Appearance (Clear) Urine pH (4.5-7.5) Ur Specific [place] (1.000-1.030) Urine Protein (Negative) Urine Glucose (UA) (Negative) Urine Ketones (Negative) Urine Blood (Negative) Urine Nitrite (Negative) Urine Bilirubin (Negative) Urine Urobilinogen (Negative) Ur Leukocyte Esterase (Negative) Urine WBC (Auto) (0-5) /hpf Urine RBC (Auto) (0-4) /hpf U Hyaline Cast (Auto) (0-5) /lpf U Epithel Cells (Auto) (0-5) /lpf Urine Bacteria (Auto) (Negative) Ur Renal Epithelial Cell Granular Casts (0) /lpf Coding Level of Care Code Critical Care 1st 30-74 mins Diagnoses ARDS (adult respiratory distress syndrome) J80 Acute hypoxemic respiratory failure J96.01 Pneumonia due to COVID-19 virus U07.1; J12.82
[2021-03-26] MEDS: METHYLNALTREXONE BROMIDE 12 MG/0.6 ML VIAL SQ SCH (11:29)
[2021-03-26] MEDS: CISATRACURIUM BESYLATE 40 MG in 0.9 % SODIUM CHLORIDE 80 ML IV SCH ×4 (11:29→21:19)
[2021-03-26] MEDS: MIDAZOLAM HCL 1 MG/ML 2ML VIAL IV PRN (11:30)
--- NOTE | 2021-03-26 13:46 | Hospitalist Progress Note ---
Date of Service March 26, 2021 Assessment & Plan (1) Acute hypoxemic respiratory failure: Plan: Acute respiratory failure with hypoxia Multifocal COVID pneumonia COVID Screen: Positive 02/28/21 CTA:No CTA evidence for pulmonary embolus. Extensive groundglass opacities are present throughout both lungs characteristic of a viral type pneumonitis Completed dexamethasone 10 days course Got baricitinib given for 6 days but discontinued due to acute DVTs (03/06/21) Had completed abx with cefepime and doxycycline for 7 days Remdesivir discontinued by pulmonary service Was on HFNC and with worsening resp status, was put on NIV and subsequently intubated on 03/19/21 Tracheostomy 03/23, on MV Vent and sedation management per income tax preparer, currenlty on nimbex and propofol. Concern for developing fibrosis Finished azithro 03/24 and on dexamethasone WBC fluctuating. Pt on Dexa ARDS protocol. Patient is having low-grade fever, 03/24 blood culture pending, on Rocephin 03/26, management per ICU. Deep venous thrombosis posterior tibial and peroneal veins In the setting of COVID-19 infection & baricitinib use Patient reports family history of blood clots Continue Lovenox 120 mg subcu twice daily Can do NOAC on discharge Mild indirect bilirubinemia, elevated alk phos Resolved Liver ultrasound:The liver is normal in size and echogenicity. Incidental note is made of a small cyst within the liver. Hyponatremia Hypokalemia monitor and replete as appropriate Hold HCTZ for now while on iv lasix Hypertension Antihypertensive on hold while on sedation Chronic back pain Patient plans to follow up with Neurosurgery as outpatient Mood disorder/PTSD DVT Px: On Lovenox SQ Full code Admission and Anticipated Discharge Date Admission Date: March 01, 2021 Subjective Patient was lying in bed, mechanically ventilated and sedated, tracheostomy status, on Nimbex and propofol and tube feeding. Because of his constant thrashing movement/twitching of head and neck, patient is on Nimbex, there is bleeding and bruise/swelling around the tracheostomy site. ROS n/a. Physical Exam Physical Exam: GENERAL: Sedated, tracheostomy status, on mechanical ventilation. HEENT: No pallor, no icterus. Pupils equal, round and reactive to light. Oral mucosa dry. NECK: No JVD, no neck masses. Jerking movements of head and neck noted. HEART: S1 and S2 heard. Regular rate and rhythm. No murmur, no gallop. RESPIRATORY SYSTEM: Normal AP diameter. No accessory muscle use. No wheezing, decreased breath sounds ABDOMEN: Soft, bowel sounds present, no distention. CENTRAL NERVOUS SYSTEM: n/a EXTREMITIES: Trace BLE edema, no erythema seen. Urinary catheter with yellow urine collection. Results & Data Results & Data ([facility]) Vital Signs (Past 12 Hours) Vital Signs Temp Pulse Resp BP Pulse Ox 03/26/21 11:00 70 33 H 91 03/26/21 07:45 84 30 H 94 03/26/21 05:20 85 30 H 92 03/26/21 05:10 87 28 H 92 03/26/21 05:00 90 26 H 91 03/26/21 04:50 95 H 26 H 91 03/26/21 04:47 92 H 26 H 175/86 H 91 03/26/21 04:40 83 31 H 91 03/26/21 04:30 81 31 H 91 03/26/21 04:20 82 30 H 92 03/26/21 04:17 82 29 H 161/78 H 92 03/26/21 04:10 80 28 H 92 03/26/21 04:00 37 C 77 29 H 94 03/26/21 03:58 77 26 H 94 03/26/21 03:50 81 29 H 95 03/26/21 03:48 83 24 151/81 H 95 03/26/21 03:40 87 28 H 96 03/26/21 03:30 81 27 H 96 03/26/21 03:20 84 26 H 96 03/26/21 03:17 85 26 H 158/84 H 96 03/26/21 03:10 83 26 H 96 03/26/21 03:00 86 26 H 95 03/26/21 02:50 86 26 H 95 03/26/21 02:48 82 26 H 175/94 H 95 03/26/21 02:40 67 31 H 94 03/26/21 02:30 54 L 26 H 92 03/26/21 02:20 62 25 H 94 03/26/21 02:17 61 24 104/61 94 03/26/21 02:10 61 24 94 03/26/21 02:00 62 23 95 03/26/21 01:50 63 24 95 03/26/21 01:47 62 25 H 106/60 95
[2021-03-26] MEDS ORDERED: MIDAZOLAM HCL 1 MG/ML 2ML VIAL IV PRN ×2 (13:48→14:15)
[2021-03-26 16:20] LABS: Appearance Urine Clear (Clear); Bacteria Urine Automated Negative (Negative); Bilirubin Urine Negative (Negative); Blood Urine Trace (Negative); Color Urine Yellow; Glucose Urine UA Negative (Negative); Ketones Urine Negative (Negative); Leukocyte Esterase Urine Negative (Negative); Nitrite Urine Negative (Negative); Protein Urine 1+ (Negative); Specific Gravity Urine 1.017 (1.000-1.030); Urobilinogen Urine Negative (Negative)
[2021-03-26] MEDS: METOPROLOL TARTRATE 1 MG/ML VIAL IV PRN (18:17)
[2021-03-26] MEDS ORDERED: LABETALOL HCL IV 5 MG/ML 20ML IV ONE (20:25)
[2021-03-26] MEDS: PEPTAMEN INTENSE VHP 1.0 CAL 1,000 ML BAG OG SCH (21:11)
[2021-03-26] MEDS: LABETALOL HCL IV 5 MG/ML 20ML IV PRN ×2 (21:20→22:21)
[2021-03-27] MEDS: TUBE FEEDING WATER FLUSH OG SCH ×6 (00:13→20:11)
[2021-03-27] MEDS: INSULIN ASPART PER UNIT SC SCH ×6 (00:13→20:04)
[2021-03-27] MEDS: CISATRACURIUM BESYLATE 40 MG in 0.9 % SODIUM CHLORIDE 80 ML IV SCH ×9 (00:47→22:17)
[2021-03-27] MEDS: propofoL 1,000 MG/100 ML VIAL IV SCH ×9 (01:11→21:32)
[2021-03-27] MEDS: oxyCODONE HCL IR 5 MG TAB (IMMEDIATE RELEASE) PO SCH ×4 (01:57→20:11)
[2021-03-27] MEDS: LABETALOL HCL IV 5 MG/ML 20ML IV PRN ×5 (01:59→19:02)
[2021-03-27 03:38] LABS: iSTAT Allen Test Pass; iSTAT Art Bld Gas pCO2 Correct 91 mmHg (35-46); iSTAT Art Bld Gas pH Corrected 7.297 (7.35-7.45); iSTAT Arterial Blood Gas HCO3 44 meg/L (19-24); iSTAT Arterial Blood Gas pCO2 91 mmHg (35-46); iSTAT Arterial Blood Gas pO2 72 mmHg (80-95); iSTAT Arterial Blood Gas pO2 C 72; iSTAT Carbon Dioxide > 40 mmol/L (24-31); iSTAT FiO2 45 %; iSTAT Hematocrit 33 % (42-52); iSTAT Hemoglobin 11.2 g/dl (14.0-18.0); iSTAT Potassium 4.6 mmol/L (3.3-5.0); iSTAT Site R Radial; iSTAT Sodium 143 mmol/L (135-144)
[2021-03-27 05:11] LABS: Hematocrit (blood only) 35.6 % (42-52); Hemoglobin 10.6 g/dL (14.0-18.0); Mean Corpuscular Hemoglobin 29.4 pg (25-34); Mean Corpuscular Hgb Conc 29.8 g/dL (32-36); Mean Corpuscular Volume 98.9 fL (80-100); Mean Platelet Volume 10.1 fL (7.4-10.4); Nucleated RBC # (auto) 0.11 K/uL (0-0); Nucleated RBC % (auto) 0.6 %; Platelet Count 424 K/uL (130-400); RDW Coefficient of Variation 13.1 % (11.5-14.5); RDW Standard Deviation 47.7 fL (36.4-46.3); White Blood Count 19.53 K/uL (4.8-10.8)
[2021-03-27 05:41] LABS: Alanine Aminotransferase 47 (12-78); Albumin Level 1.8 gm/dl (3.4-5.0); Anion Gap 0 (3-11); Aspartate Aminotransferase 17 U/L (15-37); BUN Creatinine Ratio 77.5 (10-20); Bilirubin Direct < 0.1 mg/dl (0-0.2); Blood Urea Nitrogen 46 mg/dl (7-18); Calcium 10.1 mg/dl (8.5-10.1); Carbon Dioxide 40 mmol/L (21-32); Chloride 101 mmol/L (98-107); Creatinine Clr Calc Pharmacy 176.7 ml/min; Est GFR (African American) 129.3 ml/min; Est GFR (Non-African American) 111.6 ml/min; Glucose 175 mg/dl (70-99); Magnesium 2.8 mg/dl (1.8-2.4); Potassium 4.6 mmol/L (3.5-5.1); Sodium 141 mmol/L (136-145)
[2021-03-27 05:54] LABS: Alkaline Phosphatase 112 U/L (45-117); Bilirubin,Total 0.4 mg/dl (0.2-1); Phosphorus 2.8 mg/dl (2.5-4.9); Total Protein 6.9 gm/dl (6.4-8.2)
[2021-03-27] MEDS: cefTRIAXone SODIUM 2,000 MG in DEXTROSE 5% 50 ML IV SCH (06:02)
[2021-03-27 06:32] LABS: Basophils # (auto) 0.03 K/uL (0-0.2); Basophils % (auto) 0.2 %; Eosinophils # (auto) 0.01 K/uL (0-0.5); Eosinophils % (auto) 0.1 %; Immature Granulocytes # (auto) 0.33 K/uL (0.00-0.02); Immature Granulocytes % (auto) 1.7 %; Lymphocytes % (auto) 6.7 %; Monocytes # (auto) 3.05 K/uL (0.11-0.59); Monocytes % (auto) 15.6 %; Neutrophils # (auto) 14.81 K/uL (1.4-6.5); Neutrophils % (auto) 75.7 %; Polychromasia 1+
--- NOTE | 2021-03-27 07:39 | XRay Report ---
XR chest 1V portable HISTORY: 60 years-old Male Resp failure acute respiratory failure COMPARISON: Chest radiograph 03/26/2021 TECHNIQUE: Portable AP view of the chest FINDINGS: Cardiac silhouette is enlarged. A tracheostomy cannula overlies the midline a feeding tube distal tip projects superiorly within the region of the gastric cardia.. There is no pneumothorax. There is sug gestion of a small left and trace right pleural effusions. Interstitial coarsening with patchy bilate ral airspace opacities, stable from prior. Degenerative changes of the shoulders and spine. Cholecyst ectomy. IMPRESSION: 1. Unchanged positioning of the tracheostomy cannula and feeding tube. 2. Cardiomegaly with unchanged mixed interstitial and alveolar opacities. ACT 112: Negative or not required by law. The above report was generated using voice recognition software. It may contain grammatical, syntax o r spelling errors. Electronically signed by: Omer Coto M.D. 03/27/2021 7:38 AM
[2021-03-27] MEDS ORDERED: oxyCODONE HCL IR 5 MG TAB (IMMEDIATE RELEASE) PO SCH (08:15)
[2021-03-27] MEDS: GABAPENTIN 250 MG/5 ML 470 ML BTL PO SCH ×3 (08:19→20:08)
[2021-03-27] MEDS: dexAMETHasone 10 MG in SYRINGE 0 ML IV SCH (08:20)
[2021-03-27] MEDS: ENOXAPARIN INJ 120 MG/0.8 ML SYR SQ SCH ×2 (08:20→20:06)
[2021-03-27] MEDS: LANSOPRAZOLE 30 MG SOLTAB NG SCH (08:21)
[2021-03-27] MEDS: DOCUSATE SODIUM SYRUP 100 MG/10 ML UDC PO SCH ×2 (08:21→20:05)
[2021-03-27] MEDS: SENNOSIDES 8.8 MG/5 ML UDC PO SCH (08:21)
[2021-03-27] MEDS: amLODIPine BESYLATE 5 MG TAB PO SCH (08:22)
[2021-03-27] MEDS: FLUoxetine HCL 20 MG/5 ML 120ML BTL PO SCH (08:22)
[2021-03-27] MEDS: buPROPion HCl 100 MG TABLET PO SCH ×3 (08:22→20:05)
[2021-03-27] MEDS: FUROSEMIDE 40 MG/4 ML VIAL IV SCH (08:23)
[2021-03-27] MEDS: ICU ELECTROLYTE REPLACEMENT PROTOCOL SCH (08:55)
--- NOTE | 2021-03-27 10:12 | Critical Care Progress Note ---
Date of Service March 27, 2021 Assessment & Plan (1) ARDS (adult respiratory distress syndrome): (2) Acute hypoxemic respiratory failure: (3) Pneumonia due to COVID-19 virus: Plan: Reason Critically Ill: Acute hypoxic respiratory failure secondary to COVID-19 pneumonia PLAN: Neuro: Sedation: Goal RASS -4 -5 Analgesia: Oxycodone 15 mg every 6 hours to continue until weaning sedation further NMB: cis atracurium secondary to induced hematoma at surgical site -We will attempt to limits cisatracurium once more deeply sedated --History of chronic low back pain -Continue gabapentin --Mood disorder with PTSD -Converted Wellbutrin XR to immediate release, liquid Prozac Resp: -- VDRF with acute hypoxic respiratory failure Secondary to multilobar COVID-19 pneumonia Intubation 03/19 Tracheostomy: 03/23: Postop day 4 -Hematoma mildly decreased suspect draining at this time COVID-19 PCR positive Finished azithromycin on 03/24/2021 Patient has completed 7 days of cefepime and doxycycline He has completed 10 days of dexamethasone He did get 6 days of baricitinib which was discontinued due to acute DVTs on 03/06/2021 S/p proning. Last proning was 03/21/2021 CV: --Shock: Resolved Hypertension -5 mg amlodipine per home medication ID: Febrile illness -Repeat blood cultures obtained 03/24 -2 bottle positive for cocci in chains -repeat cultures 03/26 no growth to date -Central line and arterial line removed 03/24 -On Rocephin day 2 -LFTs within normal limits. -UA 03/26 unremarkable -Oxygen requirements unchanged Renal: Lasix 40 mg daily GI/Nutrition: Tube feeding: Peptamen at goal via core safe feeding tube -As patient has been tolerating tube feeds we will continue despite aggressive sedation/paralytic medication Constipation last bowel movement 03/16 -Milk of magnesium Heme: --Acute DVTs Continue with therapeutic Lovenox DVT prophylaxis: Therapeutic Lovenox Endocrine: ICU hyperglycemia protocol Vascular access: Peripheral IVs invasive lines discontinued 03/24 Code Status: Full Disposition: ICU --Prognosis guarded Patient's Mellissa: [phone] Admission and Anticipated Discharge Date Admission Date: March 01, 2021 Supervising Physician Co-Signing Physician Notes I have personally spent 45 minutes of critical care time in the direct management of this patient. This is a life/limb threatening event. This includes time spent evaluating patient, direct bedside care, chart review, placing orders, interpretation of diagnostic studies, discussion with consulta nts, patient, and/or family members regarding treatment decisions, as well as other required patient management activities. This time is exclusive of all separately billable procedures, and teaching time and separate from and in addition to any other critical care service time. Subjective When lightening neuromuscular blockade patient continues to move head side to side, will continue neuromuscular blockade and sedation Review of Systems Review of Systems: Unobtainable due to tracheostomy tube Physical Exam Physical Exam: General: GCS 3 TP Skin: Warm, dry, Head: Atraumatic Ears, nose, mouth and throat: airway patent, tracheostomy tube in place -Area of hematoma around tube with ecchymosis -Decreased in size small area draining Cardiovascular: Normal peripheral perfusion Respiratory: Ventilator settings reviewed Gastrointestinal: Non distended Musculoskeletal: No deformity Results & Data Results & Data ([facility]) Vital Signs (Past 12 Hours) Vital Signs Temp Pulse Pulse Resp BP BP Pulse Ox 03/27/21 10:00 37.7 C H 100 H 26 H 86 L 03/27/21 09:48 37.7 C H 100 H 26 H 175/97 H 87 L 03/27/21 09:30 37.7 C H 100 H 26 H 90 03/27/21 09:18 37.6 C H 98 H 26 H 167/99 H 91 03/27/21 09:00 37.6 C H 99 H 26 H 92 03/27/21 08:48 37.6 C H 95 H 26 H 184/103 H 92 03/27/21 08:35 94 H 27 H 92 03/27/21 08:30 37.7 C H 96 H 26 H 91 03/27/21 08:18 37.7 C H 91 H 26 H 161/89 H 92 03/27/21 08:00 37.7 C H 90 89 26 H 157/85 H 91 03/27/21 07:48 37.7 C H 90 27 H 162/87 H 91 03/27/21 07:30 37.7 C H 88 26 H 91 03/27/21 07:18 37.7 C H 86 26 H 157/85 H 91 03/27/21 07:00 37.7 C H 84 26 H 90 03/27/21 04:15 80 27 H 92 03/27/21 00:07 82 29 H 94 Pulse Ox 03/27/21 10:00 03/27/21 09:48 03/27/21 09:30 03/27/21 09:18 03/27/21 09:00 03/27/21 08:48 03/27/21 08:35 03/27/21 08:30 03/27/21 08:18 03/27/21 08:00 92 03/27/21 07:48 03/27/21 07:30 03/27/21 07:18 03/27/21 07:00 03/27/21 04:15 03/27/21 00:07 Laboratory Results 03/27/21 03/27/21 03/27/21 Range/Units 05:00 04:56 04:56 WBC 19.53 H (4.8-10.8) K/uL RBC 3.60 L (4.7-6.1) M/uL Hgb 10.6 L (14.0-18.0) g/dL POC Hgb (14.0-18.0) g/dl Hct 35.6 L (42-52) % POC Hct (42-52) % MCV 98.9 (80-100) fL MCH 29.4 (25-34) pg MCHC 29.8 L (32-36) g/dL RDW Std Deviation 47.7 H (36.4-46.3) fL RDW Coeff of Natali 13.1 (11.5-14.5) % Plt Count 424 H (130-400) K/uL MPV 10.1 (7.4-10.4) fL Immature Gran % (Auto) 1.7 % Neut % (Auto) 75.7 % Lymph % (Auto) 6.7 % Dickey % (Auto) 15.6 % Eos % (Auto) 0.1 % Baso % (Auto) 0.2 % Neut # (Auto) 14.81 H (1.4-6.5) K/uL Lymph # (Auto) 1.30 (1.2-3.4) K/uL Dickey # (Auto) 3.05 H (0.11-0.59) K/uL Eos # (Auto) 0.01 (0-0.5) K/uL Baso # (Auto) 0.03 (0-0.2) K/uL Immature Gran # (Auto) 0.33 H (0.00-0.02) K/uL Absolute Nucleated RBC 0.11 H (0-0) K/uL Nucleated RBC % (auto) 0.6 % Polychromasia 1+ Sample Site POC pH (7.35-7.45) POC pCO2 (35-46) mmHg POC pO2 (80-95) mmHg POC HCO3 (19-24) cheri/L POC Total CO2 (24-31) mmol/L POC Base Excess (-9-1.8) cheri/L ABG pH (Temp Correct) (7.35-7.45) ABG pCO2 (Temp Corrct (35-46) mmHg POC ABG pO2 at Pt Temp POC ABG O2 Sat (90-95) % Rafa Test O2 Delivery Device POC O2 Rate Minute Ventilation POC FiO2 % Tidal Volume PEEP POC Sodium (135-144) mmol/L Sodium 141 (136-145) mmol/L POC Potassium (3.3-5.0) mmol/L Potassium 4.6 (3.5-5.1) mmol/L Chloride 101 (98-107) mmol/L Carbon Dioxide 40 H (21-32) mmol/L Anion Gap 0 L (3-11) BUN 46 H (7-18) mg/dl Creatinine 0.59 L (0.6-1.4) mg/dl Est Cr Clr Drug Dosing 176.7 ml/min Est GFR ( Amer) 129.3 ml/min Est GFR (Non-Af Amer) 111.6 ml/min BUN/Creatinine Ratio 77.5 H (10-20) Glucose 175 H (70-99) mg/dl POC Glucose 162 H (70-99) mg/dl Calcium 10.1 (8.5-10.1) mg/dl Phosphorus 2.8 D (2.5-4.9) mg/dl Magnesium 2.8 H (1.8-2.4) mg/dl Total Bilirubin 0.4 (0.2-1) mg/dl Direct Bilirubin < 0.1 (0-0.2) mg/dl AST 17 (15-37) U/L ALT 47 (12-78) Alkaline Phosphatase 112 (45-117) U/L Total Protein 6.9 (6.4-8.2) gm/dl Albumin 1.8 L (3.4-5.0) gm/dl Urine Color Urine Appearance (Clear) Urine pH (4.5-7.5) Ur Specific Glad[place] (1.000-1.030) Urine Protein (Negative) Urine Glucose (UA) (Negative) Urine Ketones (Negative) Urine Blood (Negative) Urine Nitrite (Negative) Urine Bilirubin (Negative) Urine Urobilinogen (Negative) Ur Leukocyte Esterase (Negative) Urine WBC (Auto) (0-5) /hpf Urine RBC (Auto) (0-4) /hpf U Hyaline Cast (Auto) (0-5) /lpf U Epithel Cells (Auto) (0-5) /lpf Urine Bacteria (Auto) (Negative) Granular Casts (0) /lpf Bld Cult Staph aureus PCR (Negative) Blood Culture MRSA PCR (Negative) 03/27/21 03/27/21 03/26/21 Range/Units 03:21 00:09 20:08 WBC (4.8-10.8) K/uL RBC (4.7-6.1) M/uL Hgb (14.0-18.0) g/dL POC Hgb 11.2 L (14.0-18.0) g/dl Hct (42-52) % POC Hct 33 L (42-52) % MCV (80-100) fL MCH (25-34) pg MCHC (32-36) g/dL RDW Std Deviation (36.4-46.3) fL RDW Coeff of Natali (11.5-14.5) % Plt Count (130-400) K/uL MPV (7.4-10.4) fL Immature Gran % (Auto) % Neut % (Auto) % Lymph % (Auto) % Dickey % (Auto) % Eos % (Auto) % Baso % (Auto) % Neut # (Auto) (1.4-6.5) K/uL Lymph # (Auto) (1.2-3.4) K/uL Dickey # (Auto) (0.11-0.59) K/uL Eos # (Auto) (0-0.5) K/uL Baso # (Auto) (0-0.2) K/uL Immature Gran # (Auto) (0.00-0.02) K/uL Absolute Nucleated RBC (0-0) K/uL Nucleated RBC % (auto) % Polychromasia Sample Site R Radial POC pH 7.30 L (7.35-7.45) POC pCO2 91 H (35-46) mmHg POC pO2 72 L (80-95) mmHg POC HCO3 44 H (19-24) cheri/L POC Total CO2 > 40 H* (24-31) mmol/L POC Base Excess 18.0 H (-9-1.8) cheri/L ABG pH (Temp Correct) 7.297 L (7.35-7.45) ABG pCO2 (Temp Corrct 91 H (35-46) mmHg POC ABG pO2 at Pt Temp 72 POC ABG O2 Sat 91.0 (90-95) % Rafa Test Pass O2 Delivery Device Ventilator POC O2 Rate 26 Minute Ventilation 9.6 POC FiO2 45 % Tidal Volume 370 PEEP 10 POC Sodium 143 (135-144) mmol/L Sodium (136-145) mmol/L POC Potassium 4.6 (3.3-5.0) mmol/L Potassium (3.5-5.1) mmol/L Chloride (98-107) mmol/L Carbon Dioxide (21-32) mmol/L Anion Gap (3-11) BUN (7-18) mg/dl Creatinine (0.6-1.4) mg/dl Est Cr Clr Drug Dosing ml/min Est GFR ( Amer) ml/min Est GFR (Non-Af Amer) ml/min BUN/Creatinine Ratio (10-20) Glucose (70-99) mg/dl POC Glucose 188 H 216 H (70-99) mg/dl Calcium (8.5-10.1) mg/dl Phosphorus (2.5-4.9) mg/dl Magnesium (1.8-2.4) mg/dl Total Bilirubin (0.2-1) mg/dl Direct Bilirubin (0-0.2) mg/dl AST (15-37) U/L ALT (12-78) Alkaline Phosphatase (45-117) U/L Total Protein (6.4-8.2) gm/dl Albumin (3.4-5.0) gm/dl Urine Color Urine Appearance (Clear) Urine pH (4.5-7.5) Ur Specific [place] (1.000-1.030) Urine Protein (Negative) Urine Glucose (UA) (Negative) Urine Ketones (Negative) Urine Blood (Negative) Urine Nitrite (Negative) Urine Bilirubin (Negative) Urine Urobilinogen (Negative) Ur Leukocyte Esterase (Negative) Urine WBC (Auto) (0-5) /hpf Urine RBC (Auto) (0-4) /hpf U Hyaline Cast (Auto) (0-5) /lpf U Epithel Cells (Auto) (0-5) /lpf Urine Bacteria (Auto) (Negative) Granular Casts (0) /lpf Bld Cult Staph aureus PCR (Negative) Blood Culture MRSA PCR (Negative) 03/26/21 03/26/21 03/26/21 Range/Units 17:19 15:30 12:17 WBC (4.8-10.8) K/uL RBC (4.7-6.1) M/uL Hgb (14.0-18.0) g/dL POC Hgb (14.0-18.0) g/dl Hct (42-52) % POC Hct (42-52) % MCV (80-100) fL MCH (25-34) pg MCHC (32-36) g/dL RDW Std Deviation (36.4-46.3) fL RDW Coeff of Natali (11.5-14.5) % Plt Count (130-400) K/uL MPV (7.4-10.4) fL Immature Gran % (Auto) % Neut % (Auto) % Lymph % (Auto) % Dickey % (Auto) % Eos % (Auto) % Baso % (Auto) % Neut # (Auto) (1.4-6.5) K/uL Lymph # (Auto) (1.2-3.4) K/uL Dickey # (Auto) (0.11-0.59) K/uL Eos # (Auto) (0-0.5) K/uL Baso # (Auto) (0-0.2) K/uL Immature Gran # (Auto) (0.00-0.02) K/uL Absolute Nucleated RBC (0-0) K/uL Nucleated RBC % (auto) % Polychromasia Sample Site POC pH (7.35-7.45) POC pCO2 (35-46) mmHg POC pO2 (80-95) mmHg POC HCO3 (19-24) cheri/L POC Total CO2 (24-31) mmol/L POC Base Excess (-9-1.8) cheri/L ABG pH (Temp Correct) (7.35-7.45) ABG pCO2 (Temp Corrct (35-46) mmHg POC ABG pO2 at Pt Temp POC ABG O2 Sat (90-95) % Rafa Test O2 Delivery Device POC O2 Rate Minute Ventilation POC FiO2 % Tidal Volume PEEP POC Sodium (135-144) mmol/L Sodium (136-145) mmol/L POC Potassium (3.3-5.0) mmol/L Potassium (3.5-5.1) mmol/L Chloride (98-107) mmol/L Carbon Dioxide (21-32) mmol/L Anion Gap (3-11) BUN (7-18) mg/dl Creatinine (0.6-1.4) mg/dl Est Cr Clr Drug Dosing ml/min Est GFR ( Amer) ml/min Est GFR (Non-Af Amer) ml/min BUN/Creatinine Ratio (10-20) Glucose (70-99) mg/dl POC Glucose 230 H 205 H (70-99) mg/dl Calcium (8.5-10.1) mg/dl Phosphorus (2.5-4.9) mg/dl Magnesium (1.8-2.4) mg/dl Total Bilirubin (0.2-1) mg/dl Direct Bilirubin (0-0.2) mg/dl AST (15-37) U/L ALT (12-78) Alkaline Phosphatase (45-117) U/L Total Protein (6.4-8.2) gm/dl Albumin (3.4-5.0) gm/dl Urine Color Yellow Urine Appearance Clear (Clear) Urine pH 6.0 (4.5-7.5) Ur Specific Gladwin 1.017 (1.000-1.030) Urine Protein 1+ H (Negative) Urine Glucose (UA) Negative (Negative) Urine Ketones Negative (Negative) Urine Blood Trace H (Negative) Urine Nitrite Negative (Negative) Urine Bilirubin Negative (Negative) Urine Urobilinogen Negative (Negative) Ur Leukocyte Esterase Negative (Negative) Urine WBC (Auto) 1-5 (0-5) /hpf Urine RBC (Auto) 5-10 H (0-4) /hpf U Hyaline Cast (Auto) 1-5 (0-5) /lpf U Epithel Cells (Auto) 10-20 H (0-5) /lpf Urine Bacteria (Auto) Negative (Negative) Granular Casts 1-5 H (0) /lpf Bld Cult Staph aureus PCR (Negative) Blood Culture MRSA PCR (Negative) 03/24/21 Range/Units 17:55 WBC (4.8-10.8) K/uL RBC (4.7-6.1) M/uL Hgb (14.0-18.0) g/dL POC Hgb (14.0-18.0) g/dl Hct (42-52) % POC Hct (42-52) % MCV (80-100) fL MCH (25-34) pg MCHC (32-36) g/dL RDW Std Deviation (36.4-46.3) fL RDW Coeff of Natali (11.5-14.5) % Plt Count (130-400) K/uL MPV (7.4-10.4) fL Immature Gran % (Auto) % Neut % (Auto) % Lymph % (Auto) % Dickey % (Auto) % Eos % (Auto) % Baso % (Auto) % Neut # (Auto) (1.4-6.5) K/uL Lymph # (Auto) (1.2-3.4) K/uL Dickey # (Auto) (0.11-0.59) K/uL Eos # (Auto) (0-0.5) K/uL Baso # (Auto) (0-0.2) K/uL Immature Gran # (Auto) (0.00-0.02) K/uL Absolute Nucleated RBC (0-0) K/uL Nucleated RBC % (auto) % Polychromasia Sample Site POC pH (7.35-7.45) POC pCO2 (35-46) mmHg POC pO2 (80-95) mmHg POC HCO3 (19-24) cheir/L POC Total CO2 (24-31) mmol/L POC Base Excess (-9-1.8) cheri/L ABG pH (Temp Correct) (7.35-7.45) ABG pCO2 (Temp Corrct (35-46) mmHg POC ABG pO2 at Pt Temp POC ABG O2 Sat (90-95) % Rafa Test O2 Delivery Device POC O2 Rate Minute Ventilation POC FiO2 % Tidal Volume PEEP POC Sodium (135-144) mmol/L Sodium (136-145) mmol/L POC Potassium (3.3-5.0) mmol/L Potassium (3.5-5.1) mmol/L Chloride (98-107) mmol/L Carbon Dioxide (21-32) mmol/L Anion Gap (3-11) BUN (7-18) mg/dl Creatinine (0.6-1.4) mg/dl Est Cr Clr Drug Dosing ml/min Est GFR ( Amer) ml/min Est GFR (Non-Af Amer) ml/min BUN/Creatinine Ratio (10-20) Glucose (70-99) mg/dl POC Glucose (70-99) mg/dl Calcium (8.5-10.1) mg/dl Phosphorus (2.5-4.9) mg/dl Magnesium (1.8-2.4) mg/dl Total Bilirubin (0.2-1) mg/dl Direct Bilirubin (0-0.2) mg/dl AST (15-37) U/L ALT (12-78) Alkaline Phosphatase (45-117) U/L Total Protein (6.4-8.2) gm/dl Albumin (3.4-5.0) gm/dl Urine Color Urine Appearance (Clear) Urine pH (4.5-7.5) Ur Specific [place] (1.000-1.030) Urine Protein (Negative) Urine Glucose (UA) (Negative) Urine Ketones (Negative) Urine Blood (Negative) Urine Nitrite (Negative) Urine Bilirubin (Negative) Urine Urobilinogen (Negative) Ur Leukocyte Esterase (Negative) Urine WBC (Auto) (0-5) /hpf Urine RBC (Auto) (0-4) /hpf U Hyaline Cast (Auto) (0-5) /lpf U Epithel Cells (Auto) (0-5) /lpf Urine Bacteria (Auto) (Negative) Granular Casts (0) /lpf Bld Cult Staph aureus PCR Negative (Negative) Blood Culture MRSA PCR Negative (Negative) Coding Level of Care Code Critical Care 1st 30-74 mins Diagnoses ARDS (adult respiratory distress syndrome) J80 Acute hypoxemic respiratory failure J96.01 Pneumonia due to COVID-19 virus U07.1; J12.82
[2021-03-27] MEDS ORDERED: MAGNESIUM HYDROXIDE SUSP 30 ML UDC PO ONE (10:23)
[2021-03-27] MEDS ORDERED: MAGNESIUM HYDROXIDE SUSP 30 ML UDC ONE (12:42)
--- NOTE | 2021-03-27 13:41 | Hospitalist Progress Note ---
Date of Service March 27, 2021 Assessment & Plan (1) Acute hypoxemic respiratory failure: Plan: Acute respiratory failure with hypoxia Multifocal COVID pneumonia COVID Screen: Positive 02/28/21 CTA:No CTA evidence for pulmonary embolus. Extensive groundglass opacities are present throughout both lungs characteristic of a viral type pneumonitis Completed dexamethasone 10 days course Got baricitinib given for 6 days but discontinued due to acute DVTs (03/06/21) Had completed abx with cefepime and doxycycline for 7 days Remdesivir discontinued by pulmonary service Was on HFNC and with worsening resp status, was put on NIV and subsequently intubated on 03/19/21 Tracheostomy 03/23, on MV Vent and sedation management per [employer] consultant, currenlty on nimbex and propofol. Concern for developing fibrosis Finished azithro 03/24 and on dexamethasone ARDS protocol WBC fluctuating. Pt on Dexa ARDS protocol. Patient is having low-grade fever, 03/24 blood culture pending, on Rocephin 03/26, management per ICU. Deep venous thrombosis posterior tibial and peroneal veins In the setting of COVID-19 infection & baricitinib use Patient reports family history of blood clots Continue Lovenox 120 mg subcu twice daily Can do NOAC on discharge Mild indirect bilirubinemia, elevated alk phos Resolved Liver ultrasound:The liver is normal in size and echogenicity. Incidental note is made of a small cyst within the liver. Hyponatremia Hypokalemia monitor and replete as appropriate Hold HCTZ for now while on iv lasix Hypertension Antihypertensive on hold while on sedation Chronic back pain Patient plans to follow up with Neurosurgery as outpatient Mood disorder/PTSD DVT Px: On Lovenox SQ Full code Admission and Anticipated Discharge Date Admission Date: March 01, 2021 Subjective Patient was lying in bed, sedated and on mechanical ventilation, tracheostomy status with swelling and erythema around the stoma, ROS n/a due to sedated status. Physical Exam Physical Exam: GENERAL: Sedated, tracheostomy status, on mechanical ventilation. HEENT: No pallor, no icterus. Pupils equal, round and reactive to light. Oral mucosa dry. NECK: No JVD, no neck masses. Jerking movements of head and neck absent today HEART: S1 and S2 heard. Regular rate and rhythm. No murmur, no gallop. RESPIRATORY SYSTEM: Normal AP diameter. No accessory muscle use. No wheezing, b/l and diff crackles ABDOMEN: Soft, bowel sounds present, no distention. CENTRAL NERVOUS SYSTEM: n/a EXTREMITIES: Trace BLE edema, no erythema seen. Urinary catheter with yellow urine collection. On Nimbex, propofol and TF. Results & Data Results & Data ([facility]) Vital Signs (Past 12 Hours) Vital Signs Temp Pulse Pulse Resp BP BP Pulse Ox 03/27/21 12:34 37.8 C H 82 26 H 133/75 92 03/27/21 12:18 37.8 C H 96 H 26 H 169/92 H 91 03/27/21 12:00 37.8 C H 94 H 26 H 91 03/27/21 11:48 37.8 C H 94 H 26 H 167/89 H 91 03/27/21 11:18 37.8 C H 91 H 26 H 165/93 H 90 03/27/21 11:00 37.8 C H 88 26 H 89 L 03/27/21 10:48 37.8 C H 85 26 H 159/92 H 89 L 03/27/21 10:25 80 26 H 89 L 03/27/21 10:18 37.7 C H 85 26 H 147/76 H 87 L 03/27/21 10:00 37.7 C H 100 H 26 H 86 L 03/27/21 09:48 37.7 C H 100 H 26 H 175/97 H 87 L 03/27/21 09:30 37.7 C H 100 H 26 H 90 03/27/21 09:18 37.6 C H 98 H 26 H 167/99 H 91 03/27/21 09:00 37.6 C H 99 H 26 H 92 03/27/21 08:48 37.6 C H 95 H 26 H 184/103 H 92 03/27/21 08:35 94 H 27 H 92 03/27/21 08:30 37.7 C H 96 H 26 H 91 03/27/21 08:18 37.7 C H 91 H 26 H 161/89 H 92 03/27/21 08:00 37.7 C H 90 89 26 H 157/85 H 91 03/27/21 07:48 37.7 C H 90 27 H 162/87 H 91 03/27/21 07:30 37.7 C H 88 26 H 91 03/27/21 07:18 37.7 C H 86 26 H 157/85 H 91 03/27/21 07:00 37.7 C H 84 26 H 90 03/27/21 04:15 80 27 H 92 Pulse Ox 03/27/21 12:34 03/27/21 12:18 03/27/21 12:00 03/27/21 11:48 03/27/21 11:18 03/27/21 11:00 03/27/21 10:48 03/27/21 10:25 03/27/21 10:18 03/27/21 10:00 03/27/21 09:48 03/27/21 09:30 03/27/21 09:18 03/27/21 09:00 03/27/21 08:48 03/27/21 08:35 03/27/21 08:30 03/27/21 08:18 03/27/21 08:00 92 03/27/21 07:48 03/27/21 07:30 03/27/21 07:18 03/27/21 07:00 03/27/21 04:15
[2021-03-27] MEDS: PEPTAMEN INTENSE VHP 1.0 CAL 1,000 ML BAG OG SCH (14:24)
[2021-03-27] MEDS: ACETAMINOPHEN 325 MG TAB PO PRN (15:02)
[2021-03-28] MEDS: CISATRACURIUM BESYLATE 40 MG in 0.9 % SODIUM CHLORIDE 80 ML IV SCH ×9 (00:11→23:08)
[2021-03-28] MEDS: propofoL 1,000 MG/100 ML VIAL IV SCH ×5 (01:21→20:45)
[2021-03-28] MEDS: TUBE FEEDING WATER FLUSH OG SCH ×5 (01:22→16:00)
[2021-03-28] MEDS: INSULIN ASPART PER UNIT SC SCH ×6 (01:22→20:39)
[2021-03-28] MEDS: oxyCODONE HCL IR 5 MG TAB (IMMEDIATE RELEASE) PO SCH ×4 (02:22→20:31)
[2021-03-28 03:55] LABS: iSTAT Allen Test Pass; iSTAT Art Bld Gas pCO2 Correct 95 mmHg (35-46); iSTAT Art Bld Gas pH Corrected 7.315 (7.35-7.45); iSTAT Arterial Blood Gas HCO3 48 meg/L (19-24); iSTAT Arterial Blood Gas pCO2 92 mmHg (35-46); iSTAT Arterial Blood Gas pH 7.33 (7.35-7.45); iSTAT Arterial Blood Gas pO2 78 mmHg (80-95); iSTAT Arterial Blood Gas pO2 C 82; iSTAT Carbon Dioxide > 50 mmol/L (24-31); iSTAT FiO2 45 %; iSTAT Hematocrit 31 % (42-52); iSTAT Hemoglobin 10.5 g/dl (14.0-18.0); iSTAT Potassium 5.4 mmol/L (3.3-5.0); iSTAT Site R Radial; iSTAT Sodium 144 mmol/L (135-144)
[2021-03-28 04:51] LABS: Hematocrit (blood only) 34.2 % (42-52); Hemoglobin 10.2 g/dL (14.0-18.0); Mean Corpuscular Hemoglobin 29.1 pg (25-34); Mean Corpuscular Hgb Conc 29.8 g/dL (32-36); Mean Corpuscular Volume 97.7 fL (80-100); Mean Platelet Volume 10.3 fL (7.4-10.4); Nucleated RBC # (auto) 0.05 K/uL (0-0); Nucleated RBC % (auto) 0.2 %; Platelet Count 418 K/uL (130-400); RDW Coefficient of Variation 13.6 % (11.5-14.5); RDW Standard Deviation 48.4 fL (36.4-46.3); White Blood Count 23.11 K/uL (4.8-10.8)
[2021-03-28] MEDS: LABETALOL HCL IV 5 MG/ML 20ML IV PRN ×2 (04:54→20:55)
[2021-03-28 05:10] LABS: Basophilic Stippling Occasional; Basophils % (auto) 0.4 %; Immature Granulocytes # (auto) 0.61 K/uL (0.00-0.02); Immature Granulocytes % (auto) 2.6 %; Lymphocytes # (auto) 1.71 K/uL (1.2-3.4); Lymphocytes % (auto) 7.4 %; Monocytes # (auto) 3.77 K/uL (0.11-0.59); Monocytes % (auto) 16.3 %; Neutrophils # (auto) 16.92 K/uL (1.4-6.5); Neutrophils % (auto) 73.3 %; Polychromasia 1+
[2021-03-28 05:11] LABS: BUN Creatinine Ratio 76.7 (10-20); Calcium 10.2 mg/dl (8.5-10.1); Creatinine Clr Calc Pharmacy 146.9 ml/min; Est GFR (African American) 119.9 ml/min; Est GFR (Non-African American) 103.4 ml/min; Magnesium 3.1 mg/dl (1.8-2.4); Phosphorus 3.4 mg/dl (2.5-4.9); Potassium 5.4 mmol/L (3.5-5.1)
[2021-03-28] MEDS: cefTRIAXone SODIUM 2,000 MG in DEXTROSE 5% 50 ML IV SCH (06:31)
--- NOTE | 2021-03-28 08:09 | XRay Report ---
SINGLE VIEW CHEST CLINICAL HISTORY: Respiratory failure FINDINGS: An AP, portable, upright chest radiograph is compared to study dated 03/27/2021. A tracheosto my and an enteric tube are unchanged in position. The heart appears enlarged. Multifocal airspace con solidation has not appreciably changed as compared to yesterday. No large pleural effusion or pneumot horax is identified. The bony thorax is grossly intact. IMPRESSION: 1. Stable lines and tubes. 2. Multifocal airspace consolidation has not appreciably changed from yesterday. ACT 112: Negative or not required by law. Electronically signed by: Jesse Peguero M.D. 03/28/2021 8:08 AM
[2021-03-28] MEDS ORDERED: MINERAL OIL 30 ML UDC PO ONE (08:47)
--- NOTE | 2021-03-28 08:50 | Critical Care Progress Note ---
Date of Service March 28, 2021 Assessment & Plan (1) ARDS (adult respiratory distress syndrome): (2) Acute hypoxemic respiratory failure: (3) Pneumonia due to COVID-19 virus: Plan: Reason Critically Ill: Acute hypoxic respiratory failure secondary to COVID-19 pneumonia PLAN: Neuro: Sedation: Goal RASS -1 -2 Analgesia: Oxycodone 15 mg every 6 hours to continue until weaning sedation further NMB: cis atracurium secondary to induced hematoma at surgical site -Attempt to discontinue today --History of chronic low back pain -Continue gabapentin --Mood disorder with PTSD -Converted Wellbutrin XR to immediate release, liquid Prozac Resp: -- VDRF with acute hypoxic respiratory failure Secondary to multilobar COVID-19 pneumonia Intubation 03/19 Tracheostomy: 03/23: Postop day 5 -Hematoma mildly decreased suspect draining at this time COVID-19 PCR positive Finished azithromycin on 03/24/2021 Patient has completed 7 days of cefepime and doxycycline He has completed 10 days of dexamethasone He did get 6 days of baricitinib which was discontinued due to acute DVTs on 03/06/2021 S/p proning. Last proning was 03/21/2021 CV: --Shock: Resolved Hypertension -5 mg amlodipine per home medication ID: Febrile illness -Repeat blood cultures obtained 03/24 -2 bottle positive for cocci in chains: Gamma strep, coag negative staph -repeat cultures 03/26 no growth to date -Central line and arterial line removed 03/24 -On Rocephin day 3 -LFTs within normal limits. -UA 03/26 unremarkable -Oxygen requirements unchanged Renal: Lasix 40 mg daily GI/Nutrition: Tube feeding: Peptamen at goal via core safe feeding tube -As patient has been tolerating tube feeds we will continue despite aggressive sedation/paralytic medication Constipation last bowel movement 03/16 - Lactulose 30 mL and mineral oil 60 mL Heme: --Acute DVTs Continue with therapeutic Lovenox DVT prophylaxis: Therapeutic Lovenox Endocrine: ICU hyperglycemia protocol Vascular access: Peripheral IVs invasive lines discontinued 03/24 Code Status: Full Disposition: ICU --Prognosis guarded Patient's Mellissa: [phone] Admission and Anticipated Discharge Date Admission Date: March 01, 2021 Supervising Physician Co-Signing Physician Notes I have personally spent 40 minutes of critical care time in the direct manageme nt of this patient. This is a life/limb threatening event. This includes time spent evaluating patient, direct bedside care, chart review, placing orders, interpretation of diagnostic studies, discussion with consultants, patient, and/or family members regarding treatment decisions, as well as other required patient management activities. This time is exclusive of all separately billable procedures, and teaching time and separate from and in addition to any other critical care service time. Subjective No overnight events Review of Systems Review of Systems: Unobtainable due to tracheostomy tube Physical Exam Physical Exam: General: GCS 3 TP Skin: Warm, dry, Head: Atraumatic Ears, nose, mouth and throat: airway patent, tracheostomy tube in place -Area of hematoma around tube with ecchymosis -Decreased in size small area draining Cardiovascular: Normal peripheral perfusion Respiratory: Ventilator settings reviewed Gastrointestinal: Non distended Musculoskeletal: No deformity Results & Data Results & Data ([facility]) Vital Signs (Past 12 Hours) Vital Signs Temp Pulse Resp BP Pulse Ox 03/28/21 07:54 99 H 27 H 03/28/21 03:09 100 H 27 H 03/28/21 01:50 99 H 03/28/21 01:10 37.7 C H 99 H 03/28/21 01:00 37.7 C H 99 H H 03/28/21 00:50 37.7 C H 98 H 26 H 03/28/21 00:40 37.7 C H 99 H 03/28/21 00:34 37.7 C H 98 H 23 166/99 H 03/28/21 00:30 37.7 C H 99 H H 03/28/21 00:20 37.7 C H 97 H 26 H 03/28/21 00:10 37.7 C H 97 H 03/28/21 00:00 37.8 C H 97 H 26 H 03/27/21 23:50 37.8 C H 100 H H 03/27/21 23:40 37.8 C H 102 H H 03/27/21 23:30 37.8 C H 100 H H 03/27/21 23:20 37.8 C H 99 H H 03/27/21 23:10 37.8 C H 94 H 26 H 92 03/27/21 23:00 37.8 C H 98 H 26 H 94 03/27/21 22:50 37.8 C H 98 H 26 H 92 03/27/21 22:45 107 H 27 H 92 03/27/21 22:40 37.8 C H 97 H 26 H 92 03/27/21 22:30 37.8 C H 95 H 26 H 92 03/27/21 22:20 37.8 C H 97 H 26 H 92 03/27/21 22:10 37.8 C H 96 H 26 H 92 03/27/21 22:00 37.8 C H 98 H 26 H 92 03/27/21 21:50 37.8 C H 95 H 26 H 92 03/27/21 21:40 37.9 C H 96 H 26 H 92 03/27/21 21:30 37.9 C H 92 H 26 H 92 03/27/21 21:20 37.9 C H 93 H 26 H 92 03/27/21 21:10 37.9 C H 91 H 26 H 92 03/27/21 21:00 37.9 C H 89 26 H 93 03/27/21 20:50 37.9 C H 90 26 H 93 Critical Care Results & Data Vital Signs (Past 12 Hours) Vital Signs Temp Pulse Resp BP Pulse Ox 03/28/21 07:54 99 H 27 H 93 03/28/21 03:09 100 H 27 H 03/28/21 01:50 99 H 03/28/21 01:10 37.7 C H 99 H 23 03/28/21 01:00 37.7 C H 99 H 26 H 03/28/21 00:50 37.7 C H 98 H 26 H 92 03/28/21 00:40 37.7 C H 99 H 23 03/28/21 00:34 37.7 C H 98 H 23 166/99 H 92 03/28/21 00:30 37.7 C H 99 H 26 H 92 03/28/21 00:20 37.7 C H 97 H 26 H 92 03/28/21 00:10 37.7 C H 97 H 23 92 03/28/21 00:00 37.8 C H 97 H 26 H 92 03/27/21 23:50 37.8 C H 100 H 26 H 92 03/27/22 23:40 37.8 C H 102 H 26 H 03/27/21 23:30 37.8 C H 100 H 26 H 03/27/21 23:20 37.8 C H 99 H 26 H 03/27/21 23:10 37.8 C H 94 H 26 H 03/27/21 23:00 37.8 C H 98 H 26 H 03/27/21 22:50 37.8 C H 98 H 26 H 03/27/21 22:45 107 H 27 H 03/27/21 22:40 37.8 C H 97 H 26 H 03/27/21 22:30 37.8 C H 95 H 26 H 03/27/21 22:20 37.8 C H 97 H 26 H 03/27/21 22:10 37.8 C H 96 H 26 H 03/27/21 22:00 37.8 C H 98 H 26 H 03/27/21 21:50 37.8 C H 95 H 26 H 03/27/21 21:40 37.9 C H 96 H 26 H 03/27/21 21:30 37.9 C H 92 H 26 H 03/27/21 21:20 37.9 C H 93 H 26 H 03/27/21 21:10 37.9 C H 91 H 26 H 03/27/21 21:00 37.9 C H 89 26 H 03/27/21 20:50 37.9 C H 90 26 H 93 Lab & Micro Results (Past 24 Hours) RBC 3.50 M/uL (4.7-6.1) L 03/28/21 WBC 23.11 K/uL (4.8-10.8) H 03/28/21 Hgb 10.2 g/dL (14.0-18.0) L 03/28/21 Hct 34.2 % (42-52) L 03/28/21 MCV 97.7 fL (80-100) 03/28/21 MCH 29.1 pg (25-34) 03/28/21 MCHC 29.8 g/dL (32-36) L 03/28/21 RDW Standard Deviation 48.4 fL (36.4-46.3) H 03/28/21 RDW Coefficient of Variation 13.6 % (11.5-14.5) 03/28/21 Plt Count 418 K/uL (130-400) H 03/28/21 MPV 10.3 fL (7.4-10.4) 03/28/21 Nucleated Red Blood Cells % (auto) 0.2 % 03/28/21 Nucleated RBC Absolute Count (auto) 0.05 K/uL (0-0) H 03/28/21 Neutrophils (%) (Auto) 73.3 % 03/28/21 Lymphocytes (%) (Auto) 7.4 % 03/28/21 Monocytes # (Auto) 3.77 K/uL (0.11-0.59) H 03/28/21 Eosinophils # (Auto) 0.00 K/uL (0-0.5) 03/28/21 Immature Granulocyte % (Auto) 2.6 % 03/28/21 Neutrophils # (Auto) 16.92 K/uL (1.4-6.5) H 03/28/21 Lymphocytes # (Auto) 1.71 K/uL (1.2-3.4) 03/28/21 Monocytes # (Auto) 3.77 K/uL (0.11-0.59) H 03/28/21 Eosinophils # (Auto) 0.00 K/uL (0-0.5) 03/28/21 Basophils # (Auto) 0.10 K/uL (0-0.2) 03/28/21 Immature Granulocyte # (Auto) 0.61 K/uL (0.00-0.02) H 03/28/21 Polychromasia 1+ 03/28/21 Basophilic Stippling Occasional 03/28/21 Na 143 mmol/L (136-145) 03/28/21 K 5.4 mmol/L (3.5-5.1) H 03/28/21 Cl 102 mmol/L (98-107) 03/28/21 CO2 41 mmol/L (21-32) H* 03/28/21 Anion Gap 0 (3-11) L 03/28/21 BUN 55 mg/dl (7-18) H 03/28/21 Creatinine 0.71 mg/dl (0.6-1.4) 03/28/21 Estimated GFR ( Amer) 119.9 ml/min 03/28/21 Estimated GFR (Non-Af Amer) 103.4 ml/min 03/28/21 BUN/Creatinine Ratio 76.7 (10-20) H 03/28/21 Glu 175 mg/dl (70-99) H 03/28/21 Ca 10.2 mg/dl (8.5-10.1) H 03/28/21 Phosphorus Level 3.4 mg/dl (2.5-4.9) 03/28/21 Mg 3.1 mg/dl (1.8-2.4) H 03/28/21 04:22 03/28/21 Calcium Level 10.2 mg/dl (8.5-10.1) H 03/28/21 04:22 03/28/21 Rafa Test Pass 03/28/21 03:41 03/28/21 Microbiology 03/23/21 12:30 Fungal Smear - Final Bronch Wash,Left Lower Lobe Fungal Culture - Preliminary Yeast- ident to follow 03/26/21 10:35 Aerobic Blood Culture - Preliminary Blood No growth in Aerobic bottle after 24 hours. Anaerobic Blood Culture - Preliminary No growth in Anaerobic bottle after 24 hours. 03/26/21 10:20 Aerobic Blood Culture - Preliminary Blood No growth in Aerobic bottle after 24 hours. Anaerobic Blood Culture - Preliminary No growth in Anaerobic bottle after 24 hours. 03/24/21 17:40 Aerobic Blood Culture - Preliminary Blood No growth in Aerobic bottle after 48 hours. Anaerobic Blood Culture - Preliminary Gamma strep not enterococcus 03/24/21 17:55 Aerobic Blood Culture - Preliminary Blood Coag neg staph not lugdunensis Anaerobic Blood Culture - Final Diagnostic Findings (Past 24 Hours) Chest X-Ray 03/28/21 07:00 SINGLE VIEW CHEST CLINICAL HISTORY: Respiratory failure FINDINGS: An AP, portable, upright chest radiograph is compared to study dated 03/27/2021. A tracheostomy and an enteric tube are unchanged in position. The heart appears enlarged. Multifocal airspace consolidation has not appreciably changed as compared to yesterday. No large pleural effusion or pneumothorax is identified. The bony thorax is grossly intact. IMPRESSION: 1. Stable lines and tubes. 2. Multifocal airspace consolidation has not appreciably changed from yesterday. ACT 112: Negative or not required by law. Electronically signed by: Jesse Peguero M.D. 03/28/2021 8:08 AM I & O Totals 24 Hours 03/27/21 03/28/21 03/29/21 06:59 06:59 06:59 Intake Total 3062.797 / 3062.797 4811.011 / 4811.011 Output Total 2885 / 2885 2810 / 2810 Balance 177.797 / 142.965 2596.011 / 2000.011 Cumulative 02/28/21 20:05 thru 03/28/21 06:29 Intake Total 93771.118 Output Total 43374 Balance -1185.882 RT Ventilator Mngmt (Last Documented) Ventilator Ordered Settings Ventilator Support Mode Assist Control 03/28/21 07:54 Respiratory Rate 27 03/28/21 07:54 Ventilator Tidal Volume 370 03/28/21 07:54 Setting Minute Ventilation 10.1 03/28/21 07:54 Ventilator Positive Pressure 15 03/25/21 12:00 Support Setting Positive End Expiratory 8 03/28/21 07:54 Pressure Fraction of Inspired Oxygen 45 03/28/21 07:54 Peak Inspiratory Flow 42 03/25/21 16:49 Machine Comment filter changed at this time 03/28/21 03:09 Ventilator - PT Measurements Respiratory Rate 27 Exhaled Tidal Volume 368 Minute Ventilation 10.1 Peak Inspiratory Airway 38 Pressure Plateau Pressure 17 Respiratory Cycle Inspiratory: 1:2.3 Expiratory Ratio Inspiratory Phase Time 0.70 End-Tidal CO2 68 Static Lung Compliance 40.89 Dynamic Lung Compliance 12.27 Normal Static Lung Compliance 42.00 Patient Measurements Comment trach site cleaned and new dressing applied Coding Level of Care Code Critical Care 1st 30-74 mins Diagnoses ARDS (adult respiratory distress syndrome) J80 Acute hypoxemic respiratory failure J96.01 Pneumonia due to COVID-19 virus U07.1; J12.82
[2021-03-28] MEDS: SENNOSIDES 8.8 MG/5 ML UDC PO SCH (09:08)
[2021-03-28] MEDS: DOCUSATE SODIUM SYRUP 100 MG/10 ML UDC PO SCH ×2 (09:08→20:32)
[2021-03-28] MEDS: FUROSEMIDE 40 MG/4 ML VIAL IV SCH (09:09)
[2021-03-28] MEDS: amLODIPine BESYLATE 5 MG TAB PO SCH (09:09)
[2021-03-28] MEDS: ENOXAPARIN INJ 120 MG/0.8 ML SYR SQ SCH ×2 (09:09→20:33)
[2021-03-28] MEDS: LANSOPRAZOLE 30 MG SOLTAB NG SCH (09:09)
[2021-03-28] MEDS: GABAPENTIN 250 MG/5 ML 470 ML BTL PO SCH ×3 (09:10→20:36)
[2021-03-28] MEDS: FLUoxetine HCL 20 MG/5 ML 120ML BTL PO SCH (09:10)
[2021-03-28] MEDS: buPROPion HCl 100 MG TABLET PO SCH ×3 (09:11→20:32)
[2021-03-28] MEDS: dexAMETHasone 10 MG in SYRINGE 0 ML IV SCH (09:48)
[2021-03-28] MEDS ORDERED: LACTULOSE SYRUP 30 GM/45 ML UDP PO SCH (11:00)
--- NOTE | 2021-03-28 12:03 | Hospitalist Progress Note ---
Date of Service March 28, 2021 Assessment & Plan (1) Acute hypoxemic respiratory failure: Plan: Acute respiratory failure with hypoxia Multifocal COVID pneumonia COVID Screen: Positive 02/28/21 CTA:No CTA evidence for pulmonary embolus. Extensive groundglass opacities are present throughout both lungs characteristic of a viral type pneumonitis Completed dexamethasone 10 days course Got baricitinib given for 6 days but discontinued due to acute DVTs (03/06/21) Had completed abx with cefepime and doxycycline for 7 days Remdesivir discontinued by pulmonary service Was on HFNC and with worsening resp status, was put on NIV and subsequently intubated on 03/19/21 Tracheostomy 03/23, on MV Vent and sedation management per tool lapper hand, currenlty on nimbex and propofol. Concern for developing fibrosis Finished azithro 03/24 and on dexamethasone ARDS protocol WBC fluctuating. Pt on Dexa ARDS protocol. Patient is having low-grade fever, 03/24 blood culture likely contaminant; 03/26 Bl Cx: NG 24 H. On Rocephin 03/26, management per ICU. Deep venous thrombosis posterior tibial and peroneal veins In the setting of COVID-19 infection & baricitinib use Patient reports family history of blood clots Continue Lovenox 111 mg subcu twice daily Can do NOAC on discharge Mild indirect bilirubinemia, elevated alk phos Resolved Liver ultrasound:The liver is normal in size and echogenicity. Incidental note is made of a small cyst within the liver. Hyponatremia Hypokalemia monitor and replete as appropriate Hold HCTZ for now while on iv lasix Hypertension Antihypertensive on hold while on sedation Chronic back pain Patient plans to follow up with Neurosurgery as outpatient Mood disorder/PTSD DVT Px: On Lovenox SQ Full code Admission and Anticipated Discharge Date Admission Date: March 01, 2021 Subjective Patient lying in bed, sedated and mechanically ventilated, tracheostomy status with bleeding/swelling/bruise around the tracheostomy site. Patient still on propofol and Nimbex, plan to taper him off of Nimbex. Per RN no new acute events overnight. ROS n/a. Physical Exam Physical Exam: GENERAL: Sedated, tracheostomy status, on mechanical ventilation. HEENT: No pallor, no icterus. Pupils equal, round and reactive to light. Oral mucosa dry. NECK: No JVD, no neck masses. Jerking movements of head and neck absent today, pt on nimbex HEART: S1 and S2 heard. Regular rate and rhythm. No murmur, no gallop. RESPIRATORY SYSTEM: Normal AP diameter. No accessory muscle use. No wheezing, b/l and diff crackles ABDOMEN: Soft, bowel sounds present, no distention. CENTRAL NERVOUS SYSTEM: n/a EXTREMITIES: Trace BLE edema, no erythema seen. Urinary catheter with yellow urine collection. On Nimbex, propofol and TF. Results & Data Results & Data ([facility]) Vital Signs (Past 12 Hours) Vital Signs Temp Pulse Resp BP Pulse Ox Pulse Ox 03/28/21 10:36 104 H 27 H 91 03/28/21 08:00 37.8 C H 90 03/28/21 07:54 99 H 27 H 03/28/21 03:09 100 H 27 H 03/28/21 01:50 99 H 03/28/21 01:10 37.7 C H 99 H 23 03/28/21 01:00 37.7 C H 99 H 26 H 03/28/21 00:50 37.7 C H 98 H 26 H 03/28/21 00:40 37.7 C H 99 H 23 03/28/21 00:34 37.7 C H 98 H 23 166/99 H 03/28/21 00:30 37.7 C H 99 H 26 H 03/28/21 00:20 37.7 C H 97 H 26 H 03/28/21 00:10 37.7 C H 97 H 23 92
[2021-03-28] MEDS: ACETAMINOPHEN 325 MG TAB PO PRN ×2 (12:36→21:11)
[2021-03-28] MEDS ORDERED: PROPOFOL IV EMULSION 10 MG/ML 100 ML VIAL IV ONE (16:01)
[2021-03-28] MEDS ORDERED: PROPOFOL BOLUS FROM BAG IV PRN (16:06)
[2021-03-28] MEDS ORDERED: STAT IV Infusion **Titration per Protocol STA (16:06)
[2021-03-29] MEDS: CISATRACURIUM BESYLATE 40 MG in 0.9 % SODIUM CHLORIDE 80 ML IV SCH ×6 (00:18→10:43)
[2021-03-29] MEDS: propofoL 1,000 MG/100 ML VIAL IV SCH ×5 (00:18→12:04)
[2021-03-29] MEDS: INSULIN ASPART PER UNIT SC SCH ×6 (00:22→20:42)
[2021-03-29] MEDS: TUBE FEEDING WATER FLUSH OG SCH ×7 (00:27→20:46)
[2021-03-29] MEDS: oxyCODONE HCL IR 5 MG TAB (IMMEDIATE RELEASE) PO SCH ×4 (02:32→20:45)
[2021-03-29] MEDS: PEPTAMEN INTENSE VHP 1.0 CAL 1,000 ML BAG OG SCH (02:35)
[2021-03-29] MEDS: cefTRIAXone SODIUM 2,000 MG in DEXTROSE 5% 50 ML IV SCH (05:10)
[2021-03-29 05:30] LABS: Albumin Level 1.8 gm/dl (3.4-5.0); BUN Creatinine Ratio 82.8 (10-20); Bilirubin,Total 0.3 mg/dl (0.2-1); Calcium 10.4 mg/dl (8.5-10.1); Creatinine Clr Calc Pharmacy 148.9 ml/min; Est GFR (African American) 120.6 ml/min; Magnesium 2.8 mg/dl (1.8-2.4); Phosphorus 4.4 mg/dl (2.5-4.9); Potassium 4.8 mmol/L (3.5-5.1); Total Protein 6.4 gm/dl (6.4-8.2)
[2021-03-29 05:44] LABS: iSTAT Art Bld Gas pCO2 Correct 81 mmHg (35-46); iSTAT Art Bld Gas pH Corrected 7.383 (7.35-7.45); iSTAT Arterial Blood Gas HCO3 47 meg/L (19-24); iSTAT Arterial Blood Gas pCO2 76 mmHg (35-46); iSTAT Arterial Blood Gas pH 7.41 (7.35-7.45); iSTAT Arterial Blood Gas pO2 67 mmHg (80-95); iSTAT Arterial Blood Gas pO2 C 74; iSTAT Carbon Dioxide > 40 mmol/L (24-31); iSTAT FiO2 45 %; iSTAT Hematocrit 29 % (42-52); iSTAT Hemoglobin 9.9 g/dl (14.0-18.0); iSTAT Potassium 4.7 mmol/L (3.3-5.0); iSTAT Site L Radial; iSTAT Sodium 145 mmol/L (135-144)
[2021-03-29 06:13] LABS: Hematocrit (blood only) 32.8 % (42-52); Hemoglobin 9.8 g/dL (14.0-18.0); Mean Corpuscular Hemoglobin 29.1 pg (25-34); Mean Corpuscular Hgb Conc 29.9 g/dL (32-36); Mean Corpuscular Volume 97.3 fL (80-100); Mean Platelet Volume 10.3 fL (7.4-10.4); Nucleated RBC # (auto) 0.08 K/uL (0-0); Nucleated RBC % (auto) 0.3 %; Platelet Count 426 K/uL (130-400); RDW Coefficient of Variation 13.8 % (11.5-14.5); RDW Standard Deviation 49.4 fL (36.4-46.3); Red Blood Count 3.37 M/uL (4.7-6.1); White Blood Count 31.35 K/uL (4.8-10.8)
[2021-03-29 06:15] LABS: ALC (manual) 3.35 K/uL (1.2-3.4); ANC (manual) 24.33 K/uL (1.4-6.5); Lymphocytes # (manual) 3.35 K/uL (1.2-3.4); Lymphocytes % (manual) 10.7 %; Metamyelocytes # (manual) 0.85 K/uL (0-0); Metamyelocytes % (manual) 2.7 %; Monocytes # (manual) 1.41 K/uL (0.11-0.59); Monocytes % (manual) 4.5 %; Myelocytes # (manual) 1.41 K/uL (0-0); Myelocytes % (manual) 4.5 %; Neutrophils # (manual) 24.33 K/uL (1.4-6.5); Neutrophils % (manual) 77.6 %
[2021-03-29] MEDS: ACETAMINOPHEN 325 MG TAB PO PRN (06:38)
[2021-03-29] MEDS ORDERED: ADENOSINE IV SOLN 3 MG/ML 2 ML VIAL IV ONE (06:55)
[2021-03-29] MEDS ORDERED: AMIODARONE IV BOLUS & DRIP IV STA (07:20)
[2021-03-29] MEDS ORDERED: 0.2 MICRON FILTER SET 1 EA IV ONE (07:20)
[2021-03-29] MEDS ORDERED: STAT IV Infusion **Titration per Protocol STA ×2 (07:20→13:08)
[2021-03-29] MEDS ORDERED: AMIODARONE / D5W 150 MG/100 ML BAG IV STA (07:20)
[2021-03-29] MEDS: DOCUSATE SODIUM SYRUP 100 MG/10 ML UDC PO SCH ×2 (07:59→20:45)
[2021-03-29] MEDS: ENOXAPARIN INJ 120 MG/0.8 ML SYR SQ SCH ×2 (07:59→20:44)
[2021-03-29] MEDS: FLUoxetine HCL 20 MG/5 ML 120ML BTL PO SCH (08:00)
[2021-03-29] MEDS ORDERED: AMIODARONE / D5W 360 MG/200 ML BAG IV ONE (08:00)
[2021-03-29] MEDS: FUROSEMIDE 40 MG/4 ML VIAL IV SCH (08:00)
[2021-03-29] MEDS: buPROPion HCl 100 MG TABLET PO SCH ×3 (08:00→20:46)
[2021-03-29] MEDS: dexAMETHasone 5 MG in SYRINGE 0 ML IV SCH (08:01)
[2021-03-29] MEDS: LANSOPRAZOLE 30 MG SOLTAB NG SCH (08:01)
[2021-03-29] MEDS: SENNOSIDES 8.8 MG/5 ML UDC PO SCH (08:01)
[2021-03-29] MEDS: amLODIPine BESYLATE 5 MG TAB PO SCH (08:01)
[2021-03-29] MEDS: GABAPENTIN 250 MG/5 ML 470 ML BTL PO SCH ×3 (08:13→20:43)
[2021-03-29 10:40] LABS: Bilirubin Direct 0.2 mg/dl (0-0.2)
[2021-03-29] MEDS ORDERED: METOPROLOL TARTRATE 25 MG TAB PO ONE (11:30)
[2021-03-29] MEDS ORDERED: NORMOSOL-R 500 ML IV SCH (11:30)
--- NOTE | 2021-03-29 11:37 | XRay Report ---
XR chest 1V portable HISTORY: 60 years-old Male Resp failure acute respiratory failure COMPARISON: March 28, 2021 TECHNIQUE: AP view of the chest FINDINGS: Cardiac silhouette is enlarged. Mild right hemidiaphragmatic elevation. Tracheostomy cannula overlies the midline just superior to the clavicular heads. Enteric tube projects superiorly within the regio n of the proximal stomach. No pneumothorax or large pleural effusion. Extensive intermixed interstiti al coarsening with alveolar opacities has slightly improved. Cholecystectomy. Degenerative changes of the shoulders and spine. IMPRESSION: 1. Lines and tubes as above. No pneumothorax. 2. Slightly improved aeration of the lungs. ACT 112: Negative or not required by law. The above report was generated using voice recognition software. It may contain grammatical, syntax o r spelling errors. Electronically signed by: Omer Coto M.D. 03/29/2021 11:35 AM
[2021-03-29] MEDS ORDERED: FLUoxetine HCL 20 MG/5 ML 120ML BTL PO ONE (11:45)
[2021-03-29] MEDS: AMIODARONE / D5W 360 MG/200 ML BAG IV SCH (13:09)
--- NOTE | 2021-03-29 13:13 | Critical Care Progress Note ---
Date of Service March 29, 2021 Assessment & Plan (1) ARDS (adult respiratory distress syndrome): (2) Acute hypoxemic respiratory failure: (3) Pneumonia due to COVID-19 virus: Plan: Reason Critically Ill: Acute hypoxic respiratory failure secondary to COVID-19 pneumonia PLAN: Neuro: Sedation: Goal RASS -1 Analgesia: Oxycodone 15 mg every 6 hours to continue until weaning sedation further Propofol discontinued 03/29/2021 secondary to elevated triglycerides. cis atracurium secondary to induced hematoma at surgical site -Discontinued 03/29/2021 --History of chronic low back pain -Continue gabapentin --Mood disorder with PTSD -Converted Wellbutrin XR to immediate release, continue with Prozac Resp: -- VDRF with acute hypoxic respiratory failure Secondary to multilobar COVID-19 pneumonia Intubation 03/19 Tracheostomy: 03/23 COVID-19 PCR positive Finished azithromycin on 03/24/2021 Patient has completed 7 days of cefepime and doxycycline He has completed 10 days of dexamethasone --> s/p DEXA ARDS He did get 6 days of baricitinib which was discontinued due to acute DVTs on 03/06/2021 S/p proning. Last proning was 03/21/2021 CV: --A flutter with RVR Amiodarone started 03/29/2021 Hypertension - on amlodipine -Metoprolol started 03/29/2021 ID: --Fever -Repeat blood cultures obtained 03/24 -2 bottle positive for cocci in chains: Gamma strep, coag negative staph -repeat cultures 03/26 no growth to date Central line and arterial line removed 03/24 On ceftriaxone -UA 03/26 unremarkable -Caspofungin added 03/29/2021 Renal: Monitor BUNs/creatinine GI/Nutrition: Continue with tube feeding Constipation last bowel movement 03/26 Continue with Colace and senna Heme: --Acute DVTs Continue with therapeutic Lovenox DVT prophylaxis: Therapeutic Lovenox --Hematoma around the trach site Active bleeding is stopped Still swelling present around the site controller H&H Endocrine: ICU hyperglycemia protocol --Hypercalcemia Calcium 10.4 with albumin 1.8 PTH 24.1 which is low normal Primary hyperparathyroidism is also in the differential along with dehydration --Prognosis guarded --Prophylaxis VTE: Therapeutic Lovenox GI: Protonix twice daily Lines: Peripherals, positive Hernandez, positive trach 03/23/2021 Diet: Tube feeds Plan: In/out: -947, urine output 3550 AB.41/76/67 on PEEP of 8, 45% We will discontinue the paralytics. Patient still has swelling around the trach site but as per the nursing as well as RT it is significantly decreased compared to before We will see how it looks like tomorrow and if it is still significant then I will order a CT neck to make sure there is no significant subcu hematoma. Patient's hemoglobin has been stable Patient WBC count went up to 31. Hemoglobin is 9.8. I will give him IV fluids which will help with sodium 145 as well. Fungal cultures has been ordered and patient has been started on caspofungin as he still spiking fevers. Hypertension metoprolol 25 mg twice daily has been started. Patient's hypercalcemia could be from the tube feeds as well as overall dehydration. We will give IV fluids. PTH is on the low normal side. Primary hyperparathyroidism is also a possibility Tube feeds have been changed Repeat sputum culture today. We will try to get a PICC line today. Patient's Mellissa complained [phone] I have personally spent 41 minutes of critical care time in the direct management of this patient. This is a life/limb threatening event. This includes time spent evaluating patient, direct bedside care, chart review, placing orders, interpretation of diagnostic studies, discussion with consultants, patient, and family members, as well as other required patient management activities. This time is exclusive of all separately billable procedures, and teaching time and separate from and in addition to any other critical care service time. Please note the above document was generated using voice recognition software. It may contain grammatical, syntax or spelling errors. Admission and Anticipated Discharge Date Admission Date: March 01, 2021 Review of Systems Review of Systems: Other Physical Exam Physical Exam: Constitutional: No acute distress HEENT: PERRLA, positive trach Respiratory system: Decreased entry bilaterally, no wheeze, no rhonchi, positive crackles bilaterally CVS: S1-S2 positive, no murmurs or gallops Abdomen: Soft, nontender, nondistended, positive bowel sounds x4, obese Extremities: +2 pulses bilaterally radialis/ dorsalis pedis, no cyanosis, no florentin ma Neuro: Paralyzed and sedated Psych: Unable to assess G/U: Positive Hernandez Skin: no rashes, warm and dry Lymphatic: no cervical or axillary lymphadenopathy Results & Data Results & Data ([facility]) Vital Signs (Past 12 Hours) Vital Signs Temp Pulse Resp BP Pulse Ox 03/29/21 10:56 99 H 34 H 94 03/29/21 08:45 173 H 32 H 97 03/29/21 06:00 38.5 C H 108 H 34 H 03/29/21 05:50 38.5 C H 110 H 34 H 03/29/21 05:40 38.5 C H 110 H 35 H 03/29/21 05:34 38.5 C H 105 H 33 H 170/93 H 03/29/21 05:30 38.5 C H 109 H 34 H 03/29/21 05:20 38.5 C H 110 H 33 H 03/29/21 05:10 38.5 C H 111 H 33 H 03/29/21 05:00 38.5 C H 106 H 34 H 03/29/21 04:50 38.5 C H 107 H 34 H 03/29/21 04:40 38.5 C H 108 H 30 H 144/94 H 03/29/21 04:35 38.5 C H 100 H 32 H 180/140 H 03/29/21 04:30 38.5 C H 101 H 30 H 03/29/21 04:28 32 H 03/29/21 04:20 38.5 C H 104 H 32 H 03/29/21 04:10 38.5 C H 106 H 30 H 03/29/21 04:00 38.5 C H 104 H 32 H 03/29/21 03:50 38.5 C H 102 H 30 H 03/29/21 03:40 38.5 C H 103 H 27 H 03/29/21 03:34 38.4 C H 103 H 26 H 148/86 H 89 L 03/29/21 03:30 38.4 C H 102 H 29 H 03/29/21 03:20 38.4 C H 101 H 28 H 03/29/21 03:10 38.4 C H 99 H 31 H 03/29/21 03:00 38.4 C H 101 H 31 H 91 03/29/21 02:50 38.4 C H 105 H 33 H 92 03/29/21 02:40 38.5 C H 105 H 27 H 91 03/29/21 02:34 38.5 C H 97 H 30 H 167/85 H 90 03/29/21 02:30 38.6 C H 99 H 32 H 91 03/29/21 02:20 38.6 C H 112 H 30 H 98 03/29/21 02:10 38.8 C H 119 H 28 H 98 03/29/21 02:00 38.8 C H 113 H 34 H 92 03/29/21 01:50 38.8 C H 112 H 35 H 92 03/29/21 01:40 38.8 C H 111 H 34 H 92 03/29/21 01:34 38.9 C H 110 H 33 H 164/91 H 92 03/29/21 01:30 38.9 C H 109 H 33 H 92 03/29/21 01:20 38.9 C H 108 H 36 H 92 03/29/21 01:10 38.9 C H 109 H 35 H 91 03/29/21 01:00 38.9 C H 111 H 31 H 92 03/29/21 00:56 105 H 03/29/21 04:40 03/29/21 04:40 Coding Level of Care Code Critical Care 1st 30-74 mins Diagnoses ARDS (adult respiratory distress syndrome) J80 Acute hypoxemic respiratory failure J96.01 Pneumonia due to COVID-19 virus U07.1; J12.82 Time Spent (min) 41
--- NOTE | 2021-03-29 13:16 | Electrocardiogram Report ---
Test Reason : Blood Pressure : / mmHG Vent. Rate : 100 BPM Atrial Rate : 340 BPM P-R Int : 000 ms QRS Dur : 068 ms QT Int : 282 ms P-R-T Axes : 250 025 009 degrees QTc Int : 363 ms Atrial flutter with variable A-V block with premature ventricular or aberrantly conducted complexes Abnormal ECG When compared with ECG of 29-MAR-2021 07:00, (unconfirmed) Vent. rate has decreased BY [address] less depressed in Anterior leads Confirmed by Bowen Woods ([id number]) on 03/29/2021 1:16:09 PM Referred By: REFERRED SELF Confirmed By:Bowen Woods
--- NOTE | 2021-03-29 13:16 | Electrocardiogram Report ---
Test Reason : Blood Pressure : / mmHG Vent. Rate : 162 BPM Atrial Rate : 324 BPM P-R Int : 000 ms QRS Dur : 070 ms QT Int : 302 ms P-R-T Axes : 246 017 -34 degrees QTc Int : 495 ms Poor data quality, interpretation may be adversely affected Atrial flutter with 2:1 A-V conduction Abnormal ECG When compared with ECG of 28-FEB-2021 20:34, Significant changes have occurred Confirmed by Bowen Woods ([id number]) on 03/29/2021 1:15:51 PM Referred By: REFERRED SELF Confirmed By:Bowen Woods
--- NOTE | 2021-03-29 13:17 | Electrocardiogram Report ---
Test Reason : Blood Pressure : / mmHG Vent. Rate : 085 BPM Atrial Rate : 357 BPM P-R Int : 000 ms QRS Dur : 076 ms QT Int : 286 ms P-R-T Axes : 218 021 012 degrees QTc Int : 340 ms Atrial flutter with variable A-V block with premature ventricular or aberrantly conducted complexes Abnormal ECG When compared with ECG of 29-MAR-2021 07:13, (unconfirmed) T wave inversion now evident in Anterior leads Confirmed by Bowen Woods ([id number]) on 03/29/2021 1:16:41 PM Referred By: REFERRED SELF Confirmed By:Bowen Woods
[2021-03-29] MEDS: MIDAZOLAM HCL 125 MG/250 ML BAG IV SCH (14:15)
--- NOTE | 2021-03-29 15:23 | Hospitalist Progress Note ---
Date of Service March 29, 2021 Assessment & Plan (1) Acute hypoxemic respiratory failure: Plan: Acute respiratory failure with hypoxia Multifocal COVID pneumonia COVID Screen: Positive 02/28/21 CTA:No CTA evidence for pulmonary embolus. Extensive groundglass opacities are present throughout both lungs characteristic of a viral type pneumonitis Completed dexamethasone 10 days course Got baricitinib given for 6 days but discontinued due to acute DVTs (03/06/21) Had completed abx with cefepime and doxycycline for 7 days Remdesivir discontinued by pulmonary service Was on HFNC and with worsening resp status, was put on NIV and subsequently intubated on 03/19/21 Tracheostomy 03/23, on MV Vent and sedation management per network relay tester, currenlty on propofol. Off on Nimbex today. Concern for developing fibrosis Finished azithro 03/24 and on dexamethasone ARDS protocol WBC fluctuating. Pt on Dexa ARDS protocol. Patient is having low-grade fever, 03/24 blood culture likely contaminant; 03/26 Bl Cx: NG so far. On Rocephin 03/26, Plan to add Caspofungin 03/29/21, management per ICU. Sputum Cx sent today. Deep venous thrombosis posterior tibial and peroneal veins In the setting of COVID-19 infection & baricitinib use Patient reports family history of blood clots Continue Lovenox 111 mg subcu twice daily Can do NOAC on discharge Mild indirect bilirubinemia, elevated alk phos Resolved Liver ultrasound:The liver is normal in size and echogenicity. Incidental note is made of a small cyst within the liver. Hyponatremia Hypokalemia monitor and replete as appropriate Hold HCTZ for now while on iv lasix Hypertension Antihypertensive on hold while on sedation Chronic back pain Patient plans to follow up with Neurosurgery as outpatient Mood disorder/PTSD DVT Px: On Lovenox SQ Full code Admission and Anticipated Discharge Date Admission Date: March 01, 2021 Subjective Patient lying in bed, sedated and mechanically ventilated, tracheostomy status with bleeding/swelling/bruise around the tracheostomy site and crusted blood in oral and nasal cavity. Patient on propofol and off of Nimbex in AM not very long ago at the time of bedside exam. Per RN, patient went into a flutter with rate in 160s to 180s overnight, started on amiodarone drip, turned sinus rhythm in the morning. ROS n/a. Physical Exam Physical Exam: GENERAL: Sedated, tracheostomy status, on mechanical ventilation. HEENT: No pallor, no icterus. Pupils equal, round and reactive to light. Oral mucosa dry. NECK: No JVD, no neck masses. Jerking movements of head and neck absent today, pt recently off on nimbex in AM. HEART: S1 and S2 heard. Regular rate and rhythm. No murmur, no gallop. RESPIRATORY SYSTEM: Normal AP diameter. No accessory muscle use. No wheezing, b/l and diff crackles ABDOMEN: Soft, bowel sounds present, no distention. CENTRAL NERVOUS SYSTEM: n/a EXTREMITIES: Trace BLE edema, no erythema seen. Urinary catheter with yellow urine collection. On propofol and TF. Results & Data Results & Data ([facility]) Vital Signs (Past 12 Hours) Vital Signs Temp Pulse Resp BP Pulse Ox Pulse Ox 03/29/21 14:47 77 26 H 97 03/29/21 13:30 38.2 C H 74 22 97 03/29/21 13:27 38.2 C H 72 24 120/65 97 03/29/21 13:00 38.3 C H 94 H 33 H 96 03/29/21 12:56 38.3 C H 94 H 30 H 144/75 H 96 03/29/21 12:30 38.3 C H 94 H 25 H 97 03/29/21 12:27 38.4 C H 98 H 27 H 130/75 97 03/29/21 12:00 38.5 C H 94 H 27 H 96 03/29/21 11:57 38.5 C H 92 H 26 H 145/73 H 96 03/29/21 11:30 38.6 C H 28 H 97 03/29/21 11:27 38.6 C H 92 H 26 H 123/69 96 03/29/21 11:01 38.8 C H 97 H 32 H 95 03/29/21 10:56 38.8 C H 96 H 26 H 131/73 96 03/29/21 10:30 38.9 C H 94 H 28 H 95 03/29/21 10:26 39.0 C H 104 H 34 H 118/70 97 03/29/21 10:00 39.0 C H 107 H 26 H 98 03/29/21 09:30 39.1 C H 110 H 27 H 98 03/29/21 09:26 39.1 C H 110 H 27 H 127/71 98 03/29/21 09:00 39.1 C H 109 H 28 H 98 03/29/21 08:45 173 H 32 H 97 03/29/21 08:30 39.2 C H 170 H 31 H 98 03/29/21 08:28 39.2 C H 166 H 33 H 112/69 98 03/29/21 08:00 39.0 C H 165 H 32 H 98 98 03/29/21 07:56 39.0 C H 162 H 46 H 115/76 03/29/21 07:55 39.0 C H 170 H 40 H 131/78 98 03/29/21 07:50 38.9 C H 167 H 44 H 122/85 95 03/29/21 07:49 38.9 C H 163 H 44 H 117/81 98 03/29/21 07:47 38.9 C H 163 H 45 H 113/80 98 03/29/21 07:42 38.9 C H 163 H 44 H 41/32 L 98 03/29/21 07:39 38.8 C H 163 H 42 H 156/120 H 98 03/29/21 07:37 38.8 C H 163 H 40 H 152/104 H 98 03/29/21 07:34 38.8 C H 162 H 44 H 157/121 H 98 03/29/21 07:31 38.8 C H 162 H 44 H 133/93 98 03/29/21 06:00 38.5 C H 108 H 34 H 92 03/29/21 05:50 38.5 C H 110 H 34 H 92 03/29/21 05:40 38.5 C H 110 H 35 H 03/29/21 05:34 38.5 C H 105 H 33 H 170/93 H 91 03/29/21 05:30 38.5 C H 109 H 34 H 03/29/21 05:20 38.5 C H 110 H 33 H 91 03/29/21 05:10 38.5 C H 111 H 33 H 03/29/21 05:00 38.5 C H 106 H 34 H 03/29/21 04:50 38.5 C H 107 H 34 H 03/29/21 04:40 38.5 C H 108 H 30 H 144/94 H 91 03/29/21 04:35 38.5 C H 100 H 32 H 180/140 H 91 03/29/21 04:30 38.5 C H 101 H 30 H 93 03/29/21 04:28 32 H 03/29/21 04:20 38.5 C H 104 H 32 H 91 03/29/21 04:10 38.5 C H 106 H 30 H 03/29/21 04:00 38.5 C H 104 H 32 H 03/29/21 03:50 38.5 C H 102 H 30 H 91 03/29/21 03:40 38.5 C H 103 H 27 H 91 03/29/21 03:34 38.4 C H 103 H 26 H 148/86 H 89 L 03/29/21 03:30 38.4 C H 102 H 29 H 91
[2021-03-29] MEDS: NOVASOURCE RENAL 2.0 CAL 1000ML BAG NG SCH (17:18)
[2021-03-29] MEDS: METOPROLOL TARTRATE 25 MG TAB PO SCH (20:45)
[2021-03-30] MEDS: INSULIN ASPART PER UNIT SC SCH ×6 (00:44→20:17)
[2021-03-30] MEDS: AMIODARONE / D5W 360 MG/200 ML BAG IV SCH ×2 (00:45→11:36)
[2021-03-30] MEDS: TUBE FEEDING WATER FLUSH OG SCH ×6 (00:49→20:33)
[2021-03-30] MEDS: oxyCODONE HCL IR 5 MG TAB (IMMEDIATE RELEASE) PO SCH ×4 (02:42→21:43)
[2021-03-30 04:54] LABS: Hemoglobin 8.6 g/dL (14.0-18.0); Mean Corpuscular Hemoglobin 28.5 pg (25-34); Mean Corpuscular Hgb Conc 29.7 g/dL (32-36); Mean Platelet Volume 10.6 fL (7.4-10.4); Nucleated RBC # (auto) 0.07 K/uL (0-0); Nucleated RBC % (auto) 0.4 %; Platelet Count 356 K/uL (130-400); RDW Coefficient of Variation 14.2 % (11.5-14.5); RDW Standard Deviation 50.2 fL (36.4-46.3); Red Blood Count 3.02 M/uL (4.7-6.1); White Blood Count 18.94 K/uL (4.8-10.8)
[2021-03-30 05:02] LABS: Partial Thromboplastin Time 26.8 Seconds (21.0-31.0); Prothrombin Time 10.5 Seconds (9.0-12.0)
[2021-03-30 05:21] LABS: Basophils # (auto) 0.06 K/uL (0-0.2); Basophils % (auto) 0.3 %; Immature Granulocytes # (auto) 0.57 K/uL (0.00-0.02); Lymphocytes # (auto) 2.04 K/uL (1.2-3.4); Lymphocytes % (auto) 10.8 %; Monocytes # (auto) 1.74 K/uL (0.11-0.59); Monocytes % (auto) 9.2 %; Neutrophils # (auto) 14.53 K/uL (1.4-6.5); Neutrophils % (auto) 76.7 %
[2021-03-30 05:24] LABS: BUN Creatinine Ratio 59.1 (10-20); Calcium 9.4 mg/dl (8.5-10.1); Creatinine Clr Calc Pharmacy 81.8 ml/min; Est GFR (African American) 71.7 ml/min; Est GFR (Non-African American) 61.9 ml/min; Magnesium 2.6 mg/dl (1.8-2.4); Phosphorus 3.6 mg/dl (2.5-4.9); Potassium 4.5 mmol/L (3.5-5.1)
[2021-03-30] MEDS ORDERED: STAT IV Infusion **Titration per Protocol STA ×3 (05:35→20:06)
[2021-03-30] MEDS ORDERED: NOREPINEPHRINE/D5W 8 MG/508 ML IV ONE (05:38)
[2021-03-30] MEDS: ACETAMINOPHEN 325 MG TAB PO PRN ×2 (05:41→13:54)
[2021-03-30] MEDS ORDERED: NOREPINEPHRINE/D5W 8 MG/508 ML BAG IV SCH (05:45)
[2021-03-30] MEDS ORDERED: CASPOFUNGIN 70 MG in SODIUM CHLORIDE 0.9% 250 ML IV STA (05:53)
[2021-03-30] MEDS: cefTRIAXone SODIUM 2,000 MG in DEXTROSE 5% 50 ML IV SCH (05:55)
[2021-03-30] MEDS: METOPROLOL TARTRATE 25 MG TAB PO SCH (07:26)
--- NOTE | 2021-03-30 07:53 | XRay Report ---
SINGLE VIEW CHEST CLINICAL HISTORY: Respiratory failure FINDINGS: An AP, portable, upright chest radiograph is compared to study dated 03/29/2021. A right PICC line is new from previous. The tip projects over the SVC. A tracheostomy and an enteric tube are unc hanged in position. The heart appears enlarged. Multifocal airspace consolidation has not appreciably changed as compared to yesterday. Question a trace right pneumothorax. The bony thorax is grossly in tact. IMPRESSION: 1. A right-sided PICC line is new from previous. Remaining lines and tubes are stable. 2. Question a trace right-sided pneumothorax. Attention at follow-up is recommended. 3. Multifocal airspace consolidation has not appreciably changed from yesterday. ACT 112: Negative or not required by law. Electronically signed by: Jesse Peguero M.D. 03/30/2021 7:51 AM
[2021-03-30] MEDS ORDERED: oxyCODONE HCL IR 5 MG TAB (IMMEDIATE RELEASE) PO SCH (08:15)
--- NOTE | 2021-03-30 08:26 | Critical Care Progress Note ---
Date of Service March 30, 2021 Assessment & Plan (1) ARDS (adult respiratory distress syndrome): (2) Acute hypoxemic respiratory failure: (3) Pneumonia due to COVID-19 virus: Plan: Reason Critically Ill: Acute hypoxic respiratory failure secondary to COVID-19 pneumonia PLAN: Neuro: Sedation: On Versed drip Analgesia: Oxycodone 15 mg every 6 hours to continue until weaning sedation further Propofol discontinued 03/29/2021 secondary to elevated triglycerides. cis atracurium secondary to induced hematoma at surgical site -Discontinued 03/29/2021 --History of chronic low back pain -Continue gabapentin --Mood disorder with PTSD -Converted Wellbutrin XR to immediate release, continue with Prozac Resp: --Pneumothorax Spontaneous Small right-sided Continue to monitor -- VDRF with acute hypoxic respiratory failure Secondary to multilobar COVID-19 pneumonia Intubation 03/19 Tracheostomy: 03/23 COVID-19 PCR positive Finished azithromycin on 03/24/2021 Patient has completed 7 days of cefepime and doxycycline He has completed 10 days of dexamethasone --> s/p DEXA ARDS He did get 6 days of baricitinib which was discontinued due to acute DVTs on 03/06/2021 S/p proning. Last proning was 03/21/2021 CV: --A flutter with RVR Amiodarone started 03/29/2021, another bolus given 03/30/2021 S/p cardioversion 200 J x 2 03/30/2021 Cardiology has been consulted -Hypotension Continue with vasopressor support to keep MAP greater than 65 ID: --Fever -Repeat blood cultures obtained 03/24 -2 bottle positive for cocci in chains: Gamma strep, coag negative staph -repeat cultures 03/26 no growth to date Central line and arterial line removed 03/24 -UA 03/26 unremarkable -Caspofungin added 03/29/2021 -Sputum culture growing gram-negative bacilli --> antibiotics changed from Rocephin to meropenem on 03/30/2021 Renal: Monitor BUNs/creatinine GI/Nutrition: Continue with tube feeding Constipation last bowel movement 03/26 Continue with Colace and senna Heme: --Acute DVTs Continue with therapeutic Lovenox DVT prophylaxis: Therapeutic Lovenox --Hematoma around the trach site Active bleeding is stopped Still swelling present around the onsite case manager H&H Endocrine: ICU hyperglycemia protocol --S/p hypercalcemia Calcium 10.4 with albumin 1.8 PTH 24.1 which is low normal Primary hyperparathyroidism is also in the differential along with dehydration --Prognosis guarded --Prophylaxis VTE: Therapeutic Lovenox on hold GI: Protonix twice daily Lines: Right arm PICC 03/29/2021, peripherals, positive Hernandez, positive trach 03/23/2021 Diet: Tube feeds Plan: In/out: +1.1 L, urine output 2350 T-max 40.1 Patient is getting significantly febrile. Patient is on medications which might lead to serotonin-like syndrome. I am going to stop Prozac, start Wellbutrin as well as give the patient a dose of cyproheptadine. Midazolam will also help with possible serotonin syndrome. Patient creatinine went up a little bit. Hold Lasix for today. Decrease tube feeds to 20/h given the patient is on vasopressors Follow-up CT neck chest and abdominal pelvis to look at the source of new infection. Hold Lovenox given the drop in hemoglobin. Repeat H&H later today. Patient is having bouts of a flutter with RVR. I did cardiovert him twice with 200 J. I bolused him with amiodarone 150 mg twice Change Levophed to phenylephrine which will help with heart rate. Addition of digoxin with loading dose can be thought of. Cardiology consulted Overall prognosis is guarded Patient's Mellissa complained [phone] I have personally spent 48 minutes of critical care time in the direct management of this patient. This is a life/limb threatening event. This includes time spent evaluating patient, direct bedside care, chart review, placing orders, interpretation of diagnostic studies, discussion with consultants, patient, and family members, as well as other required patient management activities. This time is exclusive of all separately billable procedures, and teaching time and separate from and in addition to any other critical care service time. Please note the above document was generated using voice recognition software. It may contain grammatical, syntax or spelling errors. Admission and Anticipated Discharge Date Admission Date: March 01, 2021 Subjective Patient seen and examined at bedside. He was on 4 of Versed at the time of examination Not following commands He was breathing over the vent. Overnight patient did have some bloody secretions from the trach as well as from the mouth On Levophed Review of Systems Review of Systems: Unobtainable due to endotracheal tube Physical Exam Physical Exam: Constitutional: No acute distress HEENT: PERRLA, positive trach, positive indurated edema around the trach site Respiratory system: Decreased entry bilaterally, no wheeze, no rhonchi, positive crackles bilaterally CVS: S1-S2 positive, no murmurs or gallops Abdomen: Soft, nontender, nondistended, positive bowel sounds x4, obese Extremities: +2 pulses bilaterally radialis/ dorsalis pedis, no cyanosis, no edema Neuro: Sedated Psych: Unable to assess G/U: Positive Hernandez Skin: no rashes, warm and dry Lymphatic: no cervical or axillary lymphadenopathy Results & Data Results & Data ([facility]) Vital Signs (Past 12 Hours) Vital Signs Temp Pulse Resp BP Pulse Ox 03/30/21 06:26 119 H 30 H 94/51 L 89 L 03/30/21 06:00 114 H 29 H 90 03/30/21 05:56 115 H 35 H 108/52 L 89 L 03/30/21 05:55 116 H 31 H 93 03/30/21 05:51 114 H 33 H 101/59 L 95 03/30/21 05:26 118 H 23 80/49 L 94 03/30/21 05:18 117 H 30 H 89/50 L 94 03/30/21 05:09 119 H 29 H 89/48 L 93 03/30/21 04:56 116 H 30 H 85/48 L 92 03/30/21 04:26 115 H 28 H 92/41 L 91 03/30/21 04:00 40.1 C H 116 H 30 H 91 03/30/21 03:56 115 H 37 H 83/47 L 91 03/30/21 03:26 115 H 25 H 90/45 L 91 03/30/21 02:56 118 H 30 H 88/48 L 90 03/30/21 02:26 115 H 31 H 100/54 L 90 03/30/21 02:00 115 H 62 H 90 03/30/21 01:56 115 H 23 98/51 L 90 03/30/21 01:26 113 H 24 95/55 L 91 03/30/21 00:56 114 H 25 H 113/51 L 90 01/04/22 00:00 39.0 C H 105 H 41 H 91 03/29/21 23:59 92 H 03/29/21 23:30 30 H 03/29/21 22:26 92 H 30 H 119/59 L 94 03/29/21 22:00 84 30 H 93 03/29/21 21:56 83 33 H 114/59 L 93 03/29/21 21:27 84 26 H 117/62 94 03/29/21 20:56 104 H 30 H 146/74 H 92 03/30/21 04:39 03/30/21 04:39 Coding Level of Care Code Critical Care 1st 30-74 mins Diagnoses ARDS (adult respiratory distress syndrome) J80 Acute hypoxemic respiratory failure J96.01 Pneumonia due to COVID-19 virus U07.1; J12.82 Time Spent (min) 48
[2021-03-30] MEDS ORDERED: NORMOSOL-R 1,000 ML IV SCH (08:30)
[2021-03-30] MEDS: GABAPENTIN 250 MG/5 ML 470 ML BTL PO SCH ×3 (08:46→20:14)
[2021-03-30] MEDS: dexAMETHasone 5 MG in SYRINGE 0 ML IV SCH (08:48)
[2021-03-30] MEDS: DOCUSATE SODIUM SYRUP 100 MG/10 ML UDC PO SCH ×2 (08:48→20:12)
[2021-03-30] MEDS: SENNOSIDES 8.8 MG/5 ML UDC PO SCH (08:48)
[2021-03-30] MEDS: LANSOPRAZOLE 30 MG SOLTAB NG SCH (08:48)
[2021-03-30] MEDS: buPROPion HCl 100 MG TABLET PO SCH (08:49)
[2021-03-30] MEDS: amLODIPine BESYLATE 5 MG TAB PO SCH (08:49)
[2021-03-30] MEDS ORDERED: FLUoxetine HCL 20 MG/5 ML 120ML BTL PO SCH (09:00)
[2021-03-30] MEDS ORDERED: CEFEPIME 2,000 MG in SYRINGE 0 ML IV SCH (09:00)
[2021-03-30] MEDS ORDERED: CYPROHEPTADINE HCL 4 MG TAB PO STA (09:59)
[2021-03-30] MEDS ORDERED: PANTOprazole 40 MG in SYRINGE 0 ML IV ONE (10:15)
[2021-03-30] MEDS ORDERED: LACTULOSE SYRUP 20 GM/30 ML UDC PO ONE (10:30)
[2021-03-30] MEDS ORDERED: AMIODARONE 200 MG TAB PO ONE (10:30)
[2021-03-30] MEDS ORDERED: OPTIRAY 320 100ml IV ONE (11:02)
[2021-03-30] MEDS ORDERED: METOPROLOL TARTRATE 1 MG/ML VIAL IV PRN (11:30)
--- NOTE | 2021-03-30 11:42 | CT Scan Report ---
CT soft tissue neck w con CLINICAL HISTORY: hematoma r/o active bleed, r/o abscess Technique: Axial CT images of the soft tissues of the neck were obtained following intravenous admini stration of 100 cc of Omnipaque 300. Automated dose lowering techniques and/or adjustment according t o patient size were utilized for this exam. Comparison: Comparison is made to CT neck to 05/16/2019 Findings: Patient is status post tracheostomy. There is soft tissue thickening about the insertion site as well as significant subcutaneous emphysema. Centimeter lymph nodes are seen in the cervical chains. The parotid glands, submandibular glands, and thyroid gland are unremarkable. The oropharynx, hypophary nx, larynx, and trachea are patent. Imaged portions of the brain parenchyma are unremarkable. Significant soft tissue is seen in the sph enoid sinuses bilaterally as well as air cells. Impression: Soft tissue thickening and subcutaneous emphysema about the tracheostomy insertion site which may ref lect hematoma. ACT 112: Negative or not required by law. Electronically signed by: Marcos Esposito M.D. 03/30/2021 11:41 AM
[2021-03-30] MEDS: MEROPENEM 500 MG in SYRINGE 0 ML IV SCH ×3 (11:45→21:46)
[2021-03-30] MEDS: METOPROLOL TARTRATE 1 MG/ML VIAL IV PRN ×2 (11:46→23:32)
--- NOTE | 2021-03-30 11:46 | CT Scan Report ---
CT chest diagnostic w con CLINICAL HISTORY: PNA, pneumo TECHNIQUE: Multidetector row helical CT of the chest was performed. Coronal and sagittal reformations were obtained. Automated dose lowering techniques and/or adjustment according to patient size were u tilized for this exam. Comparison: None available at the time of this dictation. FINDINGS: Lungs and pleura: Multifocal airspace opacities are seen compatible with history of pneumonia. There is trace pneumothorax on the right. Heart and pericardium: Heart size is normal. No pericardial effusion. Vessels: Unremarkable. Mediastinum and abdulkadir: Unremarkable. Chest wall and lower neck: Again noted is soft tissue thickening and subcutaneous emphysema about the tracheostomy insertion site. Abdomen: For findings below the diaphragm, please refer to CT of the abdomen dated the same. Bones: Degenerative changes in the thoracic spine. IMPRESSION: 1. Diffuse airspace opacities compatible with history of pneumonia. Trace pneumothorax on the right. 2. Please see CT soft tissue neck for findings of likely hematoma about the tracheostomy insertion s ite. ACT 112: Negative or not required by law. Electronically signed by: Marcos Esposito M.D. 03/30/2021 11:45 AM
--- NOTE | 2021-03-30 11:57 | Electrocardiogram Report ---
Test Reason : Blood Pressure : / mmHG Vent. Rate : 081 BPM Atrial Rate : 081 BPM P-R Int : 154 ms QRS Dur : 082 ms QT Int : 350 ms P-R-T Axes : 155 010 017 degrees QTc Int : 406 ms Unusual P axis, possible ectopic atrial rhythm Abnormal ECG When compared with ECG of 29-MAR-2021 07:16, Significant changes have occurred Confirmed by Bowen Woods ([id number]) on 03/30/2021 11:56:49 AM Referred By: REFERRED SELF Confirmed By:Bowen Woods
--- NOTE | 2021-03-30 11:58 | CT Scan Report ---
CT abd pelvis IV con only CLINICAL HISTORY: fever TECHNIQUE: Helical axial images of the abdomen and pelvis were obtained and displayed. Automated dose lowering techniques and/or adjustment according to patient size were utilized for this exam. This e xam was performed with intravenous contrast. COMPARISON: None available at the time of this dictation. FINDINGS: Lower chest: For findings above the diaphragm, please see CT chest performed same day. Liver: Unremarkable. No focal lesions are seen. Gallbladder and biliary tree: Patient is status post cholecystectomy. No intra- or extrahepatic bilia ry ductal dilation. Pancreas: Unremarkable, no focal lesions. Spleen: Splenule is incidentally noted. Adrenals: Unremarkable. Kidneys and ureters: Unremarkable. Bladder: Hernandez catheter is seen. Reproductive organs: Unremarkable. Bowel: Large stool burden is seen in the rectum. The appendix is normal. No evidence of bowel obstruc tion. Lymph nodes Retroperitoneal: Unremarkable. Mesenteric: Unremarkable. Pelvic: Unremarkable. Peritoneum: Normal Vessels: Unremarkable. Abdominal wall: Continuous emphysema and soft tissue densities are seen in the anterior abdomen subcu taneous fat likely represent injection granulomata. Bones: Degenerative changes in the visualized spine. IMPRESSION: 1. No acute abnormalities below the diaphragm. 2. Large rectal stool burden. Surrounding gas may suggest developing impaction. ACT 112: Negative or not required by law. Electronically signed by: Marcos Esposito M.D. 03/30/2021 11:56 AM
[2021-03-30] MEDS ORDERED: AMIODARONE 150MG / 100ML D5W IV ONE (12:37)
[2021-03-30 12:39] LABS: Hematocrit (blood only) 27.7 % (42-52); Hemoglobin 8.3 g/dL (14.0-18.0)
[2021-03-30 13:32] LABS: Thyroid Stimulating Hormone 0.011 uIu/ml (0.300-4.500)
[2021-03-30 13:45] LABS: T4 Free Thyroxine 1.07 ng/dl (0.8-1.6)
--- NOTE | 2021-03-30 14:14 | Electrocardiogram Report ---
Test Reason : Blood Pressure : / mmHG Vent. Rate : 154 BPM Atrial Rate : 308 BPM P-R Int : 000 ms QRS Dur : 078 ms QT Int : 278 ms P-R-T Axes : 240 004 019 degrees QTc Int : 445 ms Atrial flutter with 2:1 A-V conduction Septal infarct , age undetermined Abnormal ECG When compared with ECG of 29-MAR-2021 14:25, Significant changes have occurred Confirmed by Bowen Woods ([id number]) on 03/30/2021 2:13:32 PM Referred By: REFERRED SELF Confirmed By:Bowen Woods
[2021-03-30] MEDS ORDERED: MINERAL OIL ENEMA 133 ML BTL PR ONE (14:30)
[2021-03-30] MEDS: PHENYLEPHRINE HCL 20 MG in DEXTROSE 5% 500 ML IV SCH ×3 (14:34→23:23)
--- NOTE | 2021-03-30 15:21 | Hospitalist Progress Note ---
Date of Service March 30, 2021 Assessment & Plan (1) Acute hypoxemic respiratory failure: Plan: Acute respiratory failure with hypoxia Multifocal COVID pneumonia COVID Screen: Positive 02/28/21 CTA:No CTA evidence for pulmonary embolus. Extensive groundglass opacities are present throughout both lungs characteristic of a viral type pneumonitis Completed dexamethasone 10 days course Got baricitinib given for 6 days but discontinued due to acute DVTs (03/06/21) Had completed abx with cefepime and doxycycline for 7 days Remdesivir discontinued by pulmonary service Was on HFNC and with worsening resp status, was put on NIV and subsequently intubated on 03/19/21 Tracheostomy 03/23, on MV Vent and sedation management per book packer, currenlty on propofol. Off on Nimbex today. Concern for developing fibrosis Finished azithro 03/24 and on dexamethasone ARDS protocol WBC fluctuating. Pt on Dexa ARDS protocol. Patient is having low-grade fever, 03/24 blood culture likely contaminant; 03/26 Bl Cx: NG so far. On Rocephin 03/26 --> changed to meropenem 03/30 (d/t sputum Cx growing GNB), On Caspofungin 03/29/21, management per ICU. Deep venous thrombosis posterior tibial and peroneal veins In the setting of COVID-19 infection & baricitinib use Patient reports family history of blood clots Was on therapeutic lovenox. Lovenox held d/t drop in Hb, continue to monitor Hb. Can do NOAC on discharge #. Aflutter w/ RVR bout of aflutter w/ rvr, cardioverted twice, bolused with amio twice, on amio drip. cardiology consulted Per CCM team. Mild indirect bilirubinemia, elevated alk phos Resolved Liver ultrasound:The liver is normal in size and echogenicity. Incidental note is made of a small cyst within the liver. Hyponatremia Hypokalemia monitor and replete as appropriate Hold HCTZ for now while on iv lasix Hypertension Antihypertensive on hold while on sedation Chronic back pain Patient plans to follow up with Neurosurgery as outpatient Mood disorder/PTSD DVT Px: Lovenox held, SCDs while off of Anticoagulation Prognosis guarded. Full code Admission and Anticipated Discharge Date Admission Date: March 01, 2021 Subjective Patient was lying in bed, sedated and mechanically ventilated, tracheostomy status, no active bleeding noted today. Per RN patient is getting CT neck to rule out hematoma/source of infection, patient has not been thrashing/twitching his head or neck after being off of Nimbex since yesterday, is currently on Levophed/amiodarone drip/Versed. FiO2 of 40%. ROS n/a. Physical Exam Physical Exam: GENERAL: Sedated, tracheostomy status, on mechanical ventilation. bleeding around trach site improved today. HEENT: No pallor, no icterus. Pupils equal, round and reactive to light. Oral mucosa dry. NECK: No JVD, no neck masses. Jerking movements of head and neck absent today, pt off of nimbex yesterday HEART: S1 and S2 heard. Regular rate and rhythm. No murmur, no gallop. RESPIRATORY SYSTEM: Normal AP diameter. No accessory muscle use. No wheezing, b/l and diff crackles ABDOMEN: Soft, bowel sounds present, no distention. CENTRAL NERVOUS SYSTEM: n/a EXTREMITIES: Trace BLE edema, no erythema seen. Urinary catheter with yellow urine collection. On versed/amio drip/levophed Results & Data Results & Data ([facility]) Vital Signs (Past 12 Hours) Vital Signs Temp Pulse Resp BP Pulse Ox Pulse Ox 03/30/21 12:40 93 H 26 H 112/61 90 03/30/21 12:36 150 H 25 H 111/65 87 L 03/30/21 12:08 169 H 27 H 98/61 L 89 L 03/30/21 12:00 38.8 C H 164 H 25 H 89 L 03/30/21 11:46 166 H 114/67 03/30/21 11:35 156 H 29 H 91 03/30/21 11:08 155 H 16 114/67 03/30/21 10:26 38.8 C H 105 H 30 H 117/57 L 91 03/30/21 10:00 106 H 28 H 91 03/30/21 09:56 105 H 29 H 114/60 90 03/30/21 09:27 38.8 C H 111 H 30 H 90/69 L 92 03/30/21 08:56 38.9 C H 109 H 27 H 105/58 L 89 L 03/30/21 08:26 110 H 33 H 105/54 L 90 03/30/21 08:25 111 H 28 H 94 03/30/21 08:00 39.0 C H 113 H 30 H 89 L 89 L 03/30/21 07:56 39.1 C H 111 H 30 H 105/55 L 90 03/30/21 07:26 38.9 C H 111 H 29 H 94/53 L 89 L 03/30/21 06:56 114 H 34 H 100/55 L 88 L 03/30/21 06:26 119 H 30 H 94/51 L 89 L 03/30/21 06:00 114 H 29 H 90 03/30/21 05:56 115 H 35 H 108/52 L 89 L 03/30/21 05:55 116 H 31 H 93 03/30/21 05:51 114 H 33 H 101/59 L 95 03/30/21 05:26 118 H 23 80/49 L 94 03/30/21 05:18 117 H 30 H 89/50 L 94 03/30/21 05:09 119 H 29 H 89/48 L 93 03/30/21 04:56 116 H 30 H 85/48 L 92 03/30/21 04:26 115 H 28 H 92/41 L 91 03/30/21 04:00 40.1 C H 116 H 30 H 91 03/30/21 03:56 115 H 37 H 83/47 L 91 03/30/21 03:26 115 H 25 H 90/45 L 91
--- NOTE | 2021-03-30 15:22 | Cardiology Consultation ---
Date of Consultation March 30, 2021 Assessment & Plan (1) ARDS (adult respiratory distress syndrome): (2) Hypoxia: (3) Pneumonia due to COVID-19 virus: (4) Atrial flutter: With the patient's ARDS and lung inflammation, it will be hard and unlikely to convert him to sinus rhythm and maintain sinus rhythm. The Levophed is probably not helping his cardiac arrhythmias and I agree with transitioning to Ken-Synephrine and stopping Levophed. Also in the setting of ARDS, due to the pulmonary inflammation, amiodarone lung toxicity is likely and I feel we should stop this medication as it has not helped even through 3 cardioversions. I would recommend rate control with an AV jose lakisha such as verapamil IV. I will write for verapamil 5 mg every 4 hours on a as needed basis to start for heart rates over 120. Patient has not had an echocardiogram this admission and it would be helpful to know his LV function as well as RV function in the setting of severe pulmonary disease with probable pulmonary hypertension. If he has severe pulmonary hypertension, then this can be contributing to his atrial arrhythmias. The patient is anticoagulated due to a DVT. History of Present Illness Attending Physician: Crow Tuttle MD History of Present Illness This is a critically ill 60-year-old male patient in the ICU for approximately 1 month with Covid pneumonia, ventilated with ARDS. He may be septic from a staph bacteremia. He is currently on Levophed which is being to Ken-Synephrine. He has no significant cardiac history. No previous history of atrial arrhythmias according to our records. The patient had been in sinus rhythm throughout his hospital stay however this morning he developed atrial flutter with RVR. Amiodarone was started and the patient was cardioverted 3 times by the hospice chaplain, quickly returning to atrial flutter with RVR. He is not responsive. His is currently at his bedside. Most of the information is taken from the medical record and nursing staff. Allergies Allergy/AdvReac Type Severity Reaction Status Date / Time lisinopril Allergy Intermediate Angioedema Verified 02/28/21 21:58 pentazocine [From [place]ana] AdvReac Mild Vomiting Verified 02/28/21 21:58 Home Medications Medication Instructions Recorded Confirmed Type amlodipine 5 mg tablet (Norvasc) 5 mg PO QAM 01/14/21 02/28/21 History bupropion HCl 300 mg 24 hr tablet, 300 mg PO PM 01/14/21 02/28/21 History extended release carvedilol 6.25 mg tablet 6.25 mg PO BID 01/14/21 02/28/21 History cholecalciferol (vitamin D3) 25 25 mcg PO HS 01/14/21 02/28/21 History mcg (1,000 unit) capsule cyanocobalamin (vitamin B-12) 1,000 mcg PO HS 01/14/21 02/28/21 History 1,000 mcg capsule ezetimibe 10 mg tablet 10 mg PO QAM 01/14/21 02/28/21 History fluoxetine 40 mg capsule (Prozac) 40 mg PO QAM 01/14/21 02/28/21 History fluticasone propionate 50 2 spray INTRANASAL DAILY 01/14/21 02/28/21 History mcg/actuation nasal spray,suspension (Children's Flonase Allergy Relief) gabapentin 400 mg capsule 400 mg PO TID 01/14/21 02/28/21 History hydrochlorothiazide 25 mg tablet 25 mg PO QAM 01/14/21 02/28/21 History ketoconazole 2 % shampoo 1 applic TOPICAL Q14D 01/14/21 02/28/21 History lansoprazole 30 mg capsule,delayed 30 mg PO BID 01/14/21 02/28/21 History release hydrocodone bitartrate 10 mg 10 mg PO Q12H PRN 01/15/21 02/28/21 History capsule, oral only, extended rel 12 hr ibuprofen 200 mg tablet (Motrin IB) 200 mg PO Q6H PRN 01/15/21 02/28/21 History pseudoephedrine HCl 120 mg 120 mg PO Q12H PRN 01/15/21 02/28/21 History tablet,extended release (Sudafed 12 Hour) Patient History Medical History Acoustic neuroma Left ear Anxiety 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 intermittent migraines Depression GERD (gastroesophageal reflux disease) Herniated disc Lumbar/cervical > partially limitation cervical ROM per pt Hyperlipidemia Hypertension Obesity Osteoarthritis PTSD (post-traumatic stress disorder) Hx PTSD (work-related) Sleep apnea No device Spinal stenosis Surgical History H/O colonoscopy H/O excision of dermoid cyst H/O knee surgery Left x1, right x2 H/O shoulder surgery Right x2 History of anesthesia reaction Difficulty with anesthesia induction with prior colonoscopies per pt History of carpal tunnel release R/L History of esophagogastroduodenoscopy (EGD) + dilation History of tooth extraction Hx laparoscopic cholecystectomy (02/01/21) Laparoscopic cholecystectomy Dr. 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 Required: No Beliefs That Will Affect Care: None marital status: Current Living Situation: Spouse current occupational status: employed and retired How many Children do You have: 2 Other Information That Helps Us Care for You: No Feels Safe at Home: Yes Safety Concerns: Feels Safe At This Time during the past year weight has: remained stable Assistive Devices: Oxygen - Continuous Review of Systems Review of Systems: Not obtainable Physical Exam Physical Exam: General: The patient is on a ventilator trached Head: normocephalic, no masses, lesions, tenderness or abnormalities Eyes: conjunctiva are pink and non-injected, sclera clear Neck: supple, no adenopathy, no bruits, normal jugular venous pulse, no hepatojugular reflux Chest: normal shape and normal respiratory effort Lungs: Equal breath sounds bilaterally Cardiac Exam: - irregular rate & rhythm, no murmurs gallops or rubs - normal S1, normal S2 Pulses: 2(+) throughout Abdomen: abdomen soft, non-tender, no abnormal masses and no hepatosplenomegaly Musculoskeletal: no gait disturbance, no joint inflammation, no deforming arthritis Extremities: no edema and no cyanosis Neuro: grossly normal exam Results & Data ([facility]) Vital Signs (Past 12 Hours) Vital Signs Temp Pulse Resp BP Pulse Ox 03/30/21 12:40 93 H 26 H 112/61 90 03/30/21 12:36 150 H 25 H 111/65 87 L 03/30/21 12:08 169 H 27 H 98/61 L 89 L 03/30/21 12:00 38.8 C H 164 H 25 H 89 L 03/30/21 11:46 166 H 114/67 03/30/21 11:35 156 H 29 H 91 03/30/21 11:08 155 H 16 114/67 03/30/21 10:26 38.8 C H 105 H 30 H 117/57 L 91 03/30/21 10:00 106 H 28 H 91 03/30/21 09:56 105 H 29 H 114/60 90 03/30/21 09:27 38.8 C H 111 H 30 H 90/69 L 92 03/30/21 08:56 38.9 C H 109 H 27 H 105/58 L 89 L 03/30/21 08:26 110 H 33 H 105/54 L 90 03/30/21 08:25 111 H 28 H 94 03/30/21 08:00 39.0 C H 113 H 30 H 89 L 03/30/21 07:56 39.1 C H 111 H 30 H 105/55 L 90 03/30/21 07:26 38.9 C H 111 H 29 H 94/53 L 89 L 03/30/21 06:56 114 H 34 H 100/55 L 88 L 03/30/21 06:26 119 H 30 H 94/51 L 89 L 03/30/21 06:00 114 H 29 H 90 03/30/21 05:56 115 H 35 H 108/52 L 89 L 03/30/21 05:55 116 H 31 H 93 03/30/21 05:51 114 H 33 H 101/59 L 95 03/30/21 05:26 118 H 23 80/49 L 94 03/30/21 05:18 117 H 30 H 89/50 L 94 03/30/21 05:09 119 H 29 H 89/48 L 93 03/30/21 04:56 116 H 30 H 85/48 L 92 03/30/21 04:26 115 H 28 H 92/41 L 91 03/30/21 04:00 40.1 C H 116 H 30 H 91 03/30/21 03:56 115 H 37 H 83/47 L 91 03/30/21 03:26 115 H 25 H 90/45 L 91 Laboratory Results Laboratory Results - last 24 hr 03/29/21 03/29/21 03/30/21 16:49 20:33 00:22 WBC RBC Hgb Hct MCV MCH MCHC RDW Std Deviation RDW Coeff of Natali Plt Count MPV Immature Gran % (Auto) Neut % (Auto) Lymph % (Auto) Swisher % (Auto) Eos % (Auto) Baso % (Auto) Neut # (Auto) Lymph # (Auto) Swisher # (Auto) Eos # (Auto) Baso # (Auto) Immature Gran # (Auto) Absolute Nucleated RBC Nucleated RBC % (auto) PT INR APTT PTT Ratio Sodium Potassium Chloride Carbon Dioxide Anion Gap BUN Creatinine Est Cr Clr Drug Dosing Est GFR ( Amer) Est GFR (Non-Af Amer) BUN/Creatinine Ratio Glucose POC Glucose 149 H 138 H 140 H POC Glucose (other) Calcium Phosphorus Magnesium Procalcitonin TSH Free T4 Blood Type Antibody Screen 03/30/21 03/30/21 03/30/21 04:39 04:39 04:39 WBC 18.94 H D RBC 3.02 L Hgb 8.6 L Hct 29.0 L MCV 96.0 MCH 28.5 MCHC 29.7 L RDW Std Deviation 50.2 H RDW Coeff of Natali 14.2 Plt Count 356 MPV 10.6 H Immature Gran % (Auto) 3.0 Neut % (Auto) 76.7 Lymph % (Auto) 10.8 Swisher % (Auto) 9.2 Eos % (Auto) 0.0 Baso % (Auto) 0.3 Neut # (Auto) 14.53 H Lymph # (Auto) 2.04 Swisher # (Auto) 1.74 H Eos # (Auto) 0.00 Baso # (Auto) 0.06 Immature Gran # (Auto) 0.57 H Absolute Nucleated RBC 0.07 H Nucleated RBC % (auto) 0.4 PT 10.5 INR 1.0 APTT 26.8 PTT Ratio 1.0 Sodium 144 Potassium 4.5 Chloride 101 Carbon Dioxide 41 H* Anion Gap 2.0 L BUN 75 H Creatinine 1.27 D Est Cr Clr Drug Dosing 81.8 Est GFR ( Amer) 71.7 Est GFR (Non-Af Amer) 61.9 BUN/Creatinine Ratio 59.1 H Glucose 159 H POC Glucose POC Glucose (other) Calcium 9.4 Phosphorus 3.6 Magnesium 2.6 H Procalcitonin TSH Free T4 Blood Type Antibody Screen 03/30/21 03/30/21 03/30/21 05:08 08:24 08:40 WBC RBC Hgb Hct MCV MCH MCHC RDW Std Deviation RDW Coeff of Natali Plt Count MPV Immature Gran % (Auto) Neut % (Auto) Lymph % (Auto) Swisher % (Auto) Eos % (Auto) Baso % (Auto) Neut # (Auto) Lymph # (Auto) Swisher # (Auto) Eos # (Auto) Baso # (Auto) Immature Gran # (Auto) Absolute Nucleated RBC Nucleated RBC % (auto) PT INR APTT PTT Ratio Sodium Potassium Chloride Carbon Dioxide Anion Gap BUN Creatinine Est Cr Clr Drug Dosing Est GFR ( Amer) Est GFR (Non-Af Amer) BUN/Creatinine Ratio Glucose POC Glucose 122 H POC Glucose (other) 271 H Calcium Phosphorus Magnesium Procalcitonin TSH Free T4 Blood Type O Positive Antibody Screen NEGATIVE 03/30/21 03/30/21 03/30/21 11:47 12:28 12:28 WBC RBC Hgb 8.3 L Hct 27.7 L MCV MCH MCHC RDW Std Deviation RDW Coeff of Natali Plt Count MPV Immature Gran % (Auto) Neut % (Auto) Lymph % (Auto) Swisher % (Auto) Eos % (Auto) Baso % (Auto) Neut # (Auto) Lymph # (Auto) Swisher # (Auto) Eos # (Auto) Baso # (Auto) Immature Gran # (Auto) Absolute Nucleated RBC Nucleated RBC % (auto) PT INR APTT PTT Ratio Sodium Potassium Chloride Carbon Dioxide Anion Gap BUN Creatinine Est Cr Clr Drug Dosing Est GFR ( Amer) Est GFR (Non-Af Amer) BUN/Creatinine Ratio Glucose POC Glucose POC Glucose (other) 198 H Calcium Phosphorus Magnesium Procalcitonin TSH 0.011 L Free T4 1.07 Blood Type Antibody Screen 03/30/21 12:28 WBC RBC Hgb Hct MCV MCH MCHC RDW Std Deviation RDW Coeff of Natali Plt Count MPV Immature Gran % (Auto) Neut % (Auto) Lymph % (Auto) Swisher % (Auto) Eos % (Auto) Baso % (Auto) Neut # (Auto) Lymph # (Auto) Swisher # (Auto) Eos # (Auto) Baso # (Auto) Immature Gran # (Auto) Absolute Nucleated RBC Nucleated RBC % (auto) PT INR APTT PTT Ratio Sodium Potassium Chloride Carbon Dioxide Anion Gap BUN Creatinine Est Cr Clr Drug Dosing Est GFR ( Amer) Est GFR (Non-Af Amer) BUN/Creatinine Ratio Glucose POC Glucose POC Glucose (other) Calcium Phosphorus Magnesium Procalcitonin 10.80 H TSH Free T4 Blood Type Antibody Screen Medications Administered Current Inpatient Medications Acetaminophen (Acetaminophen 325 Mg Tab) 650 mg PO Q4H PRN PRN Reason: Pain or Fever Stop: 03/31/21 03:03 Last Admin: 03/30/21 13:54 Dose: 650 mg Documented by: Albuterol (Albut/Ipratrop 3mg/0.5mg Neb 3 Ml Vial) 3 ml NEB Q4 PRN PRN Reason: Shortness Of Breath Or Wheezing Stop: 04/01/21 09:21 Last Admin: 03/14/21 07:23 Dose: 3 ml Documented by: Amlodipine Besylate (Amlodipine Besylate 5 Mg Tab) 5 mg PO QAM [facility] Stop: 04/22/21 09:44 Last Admin: 03/30/21 08:49 Dose: 5 mg Documented by: Bupropion HCl (Bupropion Hcl 100 Mg Tablet) 100 mg PO TID [facility] Stop: 04/22/21 13:59 Last Admin: 03/30/21 08:49 Dose: 100 mg Documented by: Diphenhydramine HCl (Diphenhydramine Capsule 25 Mg Cap) 25 mg PO Q8H PRN PRN Reason: Itching Stop: 04/01/21 17:24 Last Admin: 03/02/21 17:36 Dose: 25 mg Documented by: Docusate Sodium (Docusate Sodium Syrup 100 Mg/10 Ml Udc) 100 mg PO BID [facility] Stop: 04/24/21 09:44 Last Admin: 03/30/21 08:48 Dose: 100 mg Documented by: Ezetimibe (Ezetimibe 10 Mg Tablet) 10 mg PO QAM [facility] Stop: 03/31/21 08:59 Last Admin: 03/22/21 08:00 Dose: 10 mg Documented by: Enoxaparin Sodium (Enoxaparin Inj 120 Mg/0.8 Ml Syr) 111 mg SQ Q12H [facility] Stop: 04/24/21 20:59 Last Admin: 03/29/21 20:44 Dose: 111 mg Documented by: Enteral Nutritional Formula (Novasource Renal 2.0 Nelson 1000ml Bag) 1,000 ml NG UD RICARDO; Protocol Stop: 04/28/21 13:44 Last Admin: 03/29/21 17:18 Dose: 1,000 ml Documented by: Fluoxetine HCl (Fluoxetine Hcl 20 Mg/5 Ml 120ml Btl) 60 mg PO QAM [facility] Stop: 04/29/21 08:59 Last Admin: 03/30/21 08:50 Dose: 60 mg Documented by: Furosemide (Furosemide 40 Mg/4 Ml Vial) 40 mg IV DAILY [facility]ICARD[facility] Stop: 04/19/21 08:59 Last Admin: 03/29/21 08:00 Dose: 40 mg Documented by: Gabapentin (Gabapentin 250 Mg/5 Ml 470 Ml Btl) 400 mg PO TID [facility] Stop: 04/23/21 08:59 Last Admin: 03/30/21 13:54 Dose: 400 mg Documented by: Promethazine HCl 12.5 mg/ (Sodium Chloride) 50.5 mls @ 202 mls/hr IV Q6H PRN PRN Reason: Nausea And Vomiting Stop: 03/31/21 03:03 Dexamethasone 5 mg/ Syringe 1.25 mls @ 1 mls/min IV DAILY [facility] Stop: 04/02/21 09:02 Last Admin: 03/30/21 08:48 Dose: 1 mls/min Documented by: Dexamethasone 2.5 mg/ Syringe 0.625 mls @ 1 mls/min IV DAILY [facility] Stop: 04/07/21 09:01 Midazolam HCl (Versed) 125 mg in 250 mls @ 8 mls/hr IV .[id number] [facility]; Protocol Stop: 04/28/21 13:14 Last Titration: 03/29/21 19:05 Dose: 4 mg/hr, 8 mls/hr Documented by: Caspofungin 50 mg/ Sodium (Chloride) 260 mls @ 260 mls/hr IV Q24H [facility] Stop: 04/07/21 05:59 Meropenem 500 mg/ Syringe 10 mls @ 2 mls/min IV Q6H [facility]; Protocol Stop: 04/06/21 09:59 Last Admin: 03/30/21 11:45 Dose: 2 mls/min Documented by: Pantoprazole Sodium 40 mg/ (Syringe) 10 mls @ 5 mls/min IV BID [facility] Stop: 04/29/21 20:59 Phenylephrine HCl 20 mg/ (Dextrose) 502 mls @ 81.324 mls/hr IV .Q6H11M [facility]; Protocol Stop: 04/29/21 14:14 Last Admin: 03/30/21 14:34 Dose: 0.5 mcg/kg/min, 81.3 mls/hr Documented by: Insulin Aspart (Insulin Aspart Per Unit) 0 units SC Q4 [facility] Stop: 04/24/21 11:59 Last Admin: 03/30/21 11:51 Dose: 5 units Documented by: Ipratropium [place] (Ipratropium [place] Neb Soln 0.02% 2.5 Ml Vial) 0.5 mg INH Q4R PRN PRN Reason: Shortness Of Breath Or Wheezing Stop: 03/31/21 03:03 Last Admin: 03/03/21 21:19 Dose: 0.5 mg Documented by: Levalbuterol HCl (Levalbuterol 1.25mg/0.5ml Neb) 1.25 mg INH Q4R PRN PRN Reason: Shortness Of Breath Or Wheezing Stop: 03/31/21 03:03 Last Admin: 03/11/21 20:31 Dose: 1.25 mg Documented by: Melatonin (Melatonin 3 Mg Tab) 3 mg PO HS PRN PRN Reason: Sleep Stop: 03/31/21 00:49 Last Admin: 03/13/21 21:52 Dose: 3 mg Documented by: Metoprolol Tartrate (Metoprolol Tartrate 1 Mg/Ml Vial) 5 mg IV Q4 PRN PRN Reason: HR >135bpm Stop: 04/05/21 17:53 Last Admin: 03/30/21 11:46 Dose: 5 mg Documented by: Midazolam HCl (Midazolam Hcl 1 Mg/Ml 2ml Vial) 2 mg IV Q2H PRN PRN Reason: RASS (-4) Stop: 04/25/21 14:14 Last Admin: 03/26/21 14:41 Dose: 2 mg Documented by: Midazolam HCl (Midazolam Bolus From Bag) 2 mg IV Q60M PRN PRN Reason: Sedation Stop: 04/28/21 13:07 Oxycodone HCl (Oxycodone Hcl Ir 5 Mg Tab (Immediate Release)) 10 mg PO Q8H [facility] Stop: 04/13/21 13:59 Last Admin: 03/30/21 13:54 Dose: 10 mg Documented by: Sennosides (Sennosides 8.8 Mg/5 Ml Udc) 17.6 mg PO QAM [facility] Stop: 04/22/21 08:59 Last Admin: 03/30/21 08:48 Dose: 17.6 mg Documented by: Sterile Water (Tube Feeding Water Flush) 30 ml OG Q4H [facility] Stop: 04/20/21 15:59 Last Admin: 03/30/21 11:45 Dose: 30 ml Documented by: Verapamil HCl (Verapamil Hcl 2.5 Mg/Ml 2 Ml Vial) 5 mg IV Q4 PRN PRN Reason: Tachycardia Stop: 04/29/21 14:55
[2021-03-30] MEDS: MIDAZOLAM HCL 125 MG/250 ML BAG IV SCH (16:43)
[2021-03-30] MEDS: VERAPAMIL HCL 2.5 MG/ML 2 ML VIAL IV PRN ×2 (16:45→22:00)
[2021-03-30] MEDS: PANTOprazole 40 MG in SYRINGE 0 ML IV SCH (20:15)
[2021-03-30] MEDS: dilTIAZem HCL 125 MG in DEXTROSE 5% 100 ML IV SCH (20:31)
[2021-03-30] MEDS ORDERED: AMIODARONE 200 MG TAB PO SCH (21:00)
[2021-03-31] MEDS: INSULIN ASPART PER UNIT SC SCH ×6 (00:17→20:35)
[2021-03-31] MEDS: TUBE FEEDING WATER FLUSH OG SCH ×7 (00:21→23:52)
[2021-03-31] MEDS ORDERED: PHENYLEPHRINE HCL 40 MG in DEXTROSE 5% 500 ML IV SCH (02:30)
[2021-03-31] MEDS: VERAPAMIL HCL 2.5 MG/ML 2 ML VIAL IV PRN ×2 (02:52→13:30)
[2021-03-31 03:48] LABS: iSTAT Arterial Blood Gas HCO3 40 meg/L (19-24); iSTAT Arterial Blood Gas pCO2 67 mmHg (35-46); iSTAT Arterial Blood Gas pH 7.39 (7.35-7.45); iSTAT Arterial Blood Gas pO2 77 mmHg (80-95); iSTAT Carbon Dioxide > 40 mmol/L (24-31); iSTAT Site R Radial
[2021-03-31] MEDS: MEROPENEM 500 MG in SYRINGE 0 ML IV SCH ×2 (04:33→09:17)
[2021-03-31] MEDS: dilTIAZem HCL 125 MG in DEXTROSE 5% 100 ML IV SCH (04:40)
[2021-03-31 04:47] LABS: Basophils # (auto) 0.03 K/uL (0-0.2); Basophils % (auto) 0.2 %; Hemoglobin 7.8 g/dL (14.0-18.0); Immature Granulocytes % (auto) 2.6 %; Lymphocytes % (auto) 10.3 %; Mean Corpuscular Hemoglobin 28.6 pg (25-34); Mean Corpuscular Volume 95.2 fL (80-100); Mean Platelet Volume 10.7 fL (7.4-10.4); Monocytes # (auto) 1.23 K/uL (0.11-0.59); Monocytes % (auto) 6.3 %; Neutrophils # (auto) 15.67 K/uL (1.4-6.5); Neutrophils % (auto) 80.6 %; Nucleated RBC # (auto) 0.06 K/uL (0-0); Nucleated RBC % (auto) 0.3 %; Platelet Count 360 K/uL (130-400); RDW Coefficient of Variation 14.3 % (11.5-14.5); RDW Standard Deviation 49.5 fL (36.4-46.3); Red Blood Count 2.73 M/uL (4.7-6.1); White Blood Count 19.43 K/uL (4.8-10.8)
[2021-03-31 05:09] LABS: BUN Creatinine Ratio 72.3 (10-20); Calcium 8.2 mg/dl (8.5-10.1); Creatinine Clr Calc Pharmacy 103.8 ml/min; Est GFR (African American) 95.7 ml/min; Est GFR (Non-African American) 82.6 ml/min; Magnesium 2.4 mg/dl (1.8-2.4); Phosphorus 3.8 mg/dl (2.5-4.9); Potassium 3.3 mmol/L (3.5-5.1)
[2021-03-31 05:31] LABS: RBC Morphology Unremarkable
[2021-03-31] MEDS: oxyCODONE HCL IR 5 MG TAB (IMMEDIATE RELEASE) PO SCH ×3 (05:34→21:33)
[2021-03-31] MEDS ORDERED: CASPOFUNGIN 50 MG in SODIUM CHLORIDE 0.9% 250 ML IV SCH (06:00)
[2021-03-31] MEDS ORDERED: POTASSIUM CHLORIDE 20 MEQ/15 ML UDC PO STA (06:24)
[2021-03-31] MEDS: DOCUSATE SODIUM SYRUP 100 MG/10 ML UDC PO SCH ×2 (07:57→20:14)
[2021-03-31] MEDS: SENNOSIDES 8.8 MG/5 ML UDC PO SCH (07:57)
--- NOTE | 2021-03-31 08:10 | XRay Report ---
XR chest 1V portable HISTORY: Respiratory failure. COMPARISON: Chest 03/30/2021. FINDINGS: No definite pneumothorax. A right PICC terminates at the distal SVC. Tracheostomy tube marci ins in good position. A feeding tube is curled within the stomach. There are low lung volumes. The he art remains enlarged. Patchy bilateral airspace opacities persist. IMPRESSION: 1. No change in the patchy bilateral airspace opacities likely representing a viral pneumonia. 2. Satisfactory support line placement. 3. Stable cardiomegaly. ACT 112: Negative or not required by law. Electronically signed by: Sree Natarajan M.D. 03/31/2021 8:09 AM
[2021-03-31] MEDS: GABAPENTIN 250 MG/5 ML 470 ML BTL PO SCH ×3 (08:21→20:13)
[2021-03-31] MEDS: PANTOprazole 40 MG in SYRINGE 0 ML IV SCH ×2 (08:21→20:13)
[2021-03-31] MEDS: dexAMETHasone 5 MG in SYRINGE 0 ML IV SCH (08:22)
[2021-03-31] MEDS: POTASSIUM CHLORIDE / WTR 20 MEQ/100 ML PLCT IV SCH ×2 (08:29→11:16)
[2021-03-31] MEDS: PHENYLEPHRINE HCL IV SCH (09:16)
[2021-03-31] MEDS: DEXTROSE 5% IV SCH (09:16)
[2021-03-31] MEDS ORDERED: PIPERACILL/TAZOBAC CONSULT ACTIVE PRN (10:24)
[2021-03-31] MEDS ORDERED: SOD PHOSPHATE/SOD BIPHOSPHATE ENEMA 132 ML BTL PR SCH (11:00)
[2021-03-31] MEDS: VERAPAMIL HCL 2.5 MG/ML 2 ML VIAL IV SCH ×3 (11:17→20:16)
[2021-03-31 11:54] LABS: Hematocrit (blood only) 30.4 % (42-52); Hemoglobin 8.9 g/dL (14.0-18.0)
--- NOTE | 2021-03-31 12:13 | Cardiology Progress Note ---
Date of Service March 31, 2021 Assessment & Plan (1) ARDS (adult respiratory distress syndrome): (2) Hypoxia: (3) Pneumonia due to COVID-19 virus: (4) Atrial flutter: Plan: I reviewed the patient's echocardiogram. It was a limited study but he does have good LV function. I have increased his verapamil to 5 mg IV every 4 hours as scheduled. His heart rate seems to be better controlled. I would not restart the diltiazem. I would use the as needed for high heart rates but so far his heart rates have been improved with the current dose of verapamil. Admission and Anticipated Discharge Date Admission Date: March 01, 2021 Subjective The patient is status quo, still on the ventilator and sedated. Review of Systems Review of Systems: Not obtainable Physical Exam Physical Exam: General: The patient is on a ventilator trached Head: normocephalic, no masses, lesions, tenderness or abnormalities Eyes: conjunctiva are pink and non-injected, sclera clear Neck: supple, no adenopathy, no bruits, normal jugular venous pulse, no hepatojugular reflux Chest: normal shape and normal respiratory effort Lungs: Equal breath sounds bilaterally Cardiac Exam: - irregular rate & rhythm, no murmurs gallops or rubs - normal S1, normal S2 Pulses: 2(+) throughout Abdomen: abdomen soft, non-tender, no abnormal masses and no hepatosplenomegaly Musculoskeletal: no gait disturbance, no joint inflammation, no deforming arthritis Extremities: no edema and no cyanosis Neuro: grossly normal exam Results & Data ([facility]) Vital Signs (Past 12 Hours) Vital Signs Temp Pulse Resp BP Pulse Ox 03/31/21 11:40 86 26 H 96 03/31/21 11:26 96 H 23 83/57 L 93 03/31/21 10:56 125 H 18 129/89 93 03/31/21 10:27 97 H 25 H 106/75 94 03/31/21 10:00 99 H 27 H 96 03/31/21 09:56 109 H 17 121/71 97 03/31/21 09:26 103 H 30 H 103/61 95 03/31/21 08:56 90 18 109/74 95 03/31/21 08:26 113 H 22 120/69 96 03/31/21 08:14 104 H 25 H 95 03/31/21 08:00 37.0 C 115 H 20 95 03/31/21 07:56 109 H 21 114/79 95 03/31/21 07:50 100 H 03/31/21 07:27 115 H 22 109/62 95 03/31/21 06:56 113 H 24 98/74 L 89 L 03/31/21 06:15 102 H 16 93 03/31/21 06:00 100 H 17 94 03/31/21 05:56 109 H 20 121/66 93 03/31/21 05:45 115 H 18 93 03/31/21 05:30 102 H 21 93 03/31/21 05:26 101 H 21 115/66 94 03/31/21 05:15 108 H 20 93 03/31/21 05:00 117 H 20 93 03/31/21 04:56 117 H 21 136/90 92 03/31/21 04:45 112 H 24 93 03/31/21 04:30 105 H 21 91 03/31/21 04:26 106 H 21 111/76 91 03/31/21 04:15 115 H 20 85 L 03/31/21 04:00 37.6 C H 108 H 21 87 L 03/31/21 03:56 108 H 21 128/59 L 87 L 03/31/21 03:45 99 H 22 87 L 03/31/21 03:36 91 H 22 97 03/31/21 03:30 84 18 78 L 03/31/21 03:26 105 H 20 111/82 91 03/31/21 03:15 103 H 27 H 89 L 03/31/21 03:00 98 H 19 93 03/31/21 02:56 93 H 17 99/70 L 94 03/31/21 02:45 112 H 22 93 03/31/21 02:30 124 H 19 94 03/31/21 02:26 114 H 17 113/67 91 03/31/21 02:15 104 H 22 93 03/31/21 02:00 110 H 18 91 03/31/21 01:56 113 H 18 99/64 L 93 03/31/21 01:45 125 H 25 H 96 03/31/21 01:30 111 H 19 94 03/31/21 01:26 100 H 19 108/68 93 03/31/21 01:15 108 H 17 92 03/31/21 01:00 114 H 23 94 03/31/21 00:45 115 H 20 92 03/31/21 00:30 119 H 20 94 03/31/21 00:26 117 H 19 76/62 L 95 03/31/21 00:15 131 H 21 95 Laboratory Results Laboratory Results - last 24 hr 03/30/21 03/30/21 03/30/21 11:47 12:28 12:28 WBC RBC Hgb 8.3 L Hct 27.7 L MCV MCH MCHC RDW Std Deviation RDW Coeff of Natali Plt Count MPV Immature Gran % (Auto) Neut % (Auto) Lymph % (Auto) Peach % (Auto) Eos % (Auto) Baso % (Auto) Neut # (Auto) Lymph # (Auto) Peach # (Auto) Eos # (Auto) Baso # (Auto) Immature Gran # (Auto) Absolute Nucleated RBC Nucleated RBC % (auto) RBC Morphology Sample Site POC pH POC pCO2 POC pO2 POC HCO3 POC Total CO2 POC Base Excess POC ABG O2 Sat Rafa Test O2 Delivery Device POC O2 Rate Tidal Volume PEEP Sodium Potassium Chloride Carbon Dioxide Anion Gap BUN Creatinine Est Cr Clr Drug Dosing Est GFR ( Amer) Est GFR (Non-Af Amer) BUN/Creatinine Ratio Glucose POC Glucose (other) 198 H Calcium Phosphorus Magnesium Total Creatine Kinase Procalcitonin TSH 0.011 L Free T4 1.07 03/30/21 03/30/21 03/30/21 12:28 16:38 20:09 WBC RBC Hgb Hct MCV MCH MCHC RDW Std Deviation RDW Coeff of Natali Plt Count MPV Immature Gran % (Auto) Neut % (Auto) Lymph % (Auto) Peach % (Auto) Eos % (Auto) Baso % (Auto) Neut # (Auto) Lymph # (Auto) Peach # (Auto) Eos # (Auto) Baso # (Auto) Immature Gran # (Auto) Absolute Nucleated RBC Nucleated RBC % (auto) RBC Morphology Sample Site POC pH POC pCO2 POC pO2 POC HCO3 POC Total CO2 POC Base Excess POC ABG O2 Sat Rafa Test O2 Delivery Device POC O2 Rate Tidal Volume PEEP Sodium Potassium Chloride Carbon Dioxide Anion Gap BUN Creatinine Est Cr Clr Drug Dosing Est GFR ( Amer) Est GFR (Non-Af Amer) BUN/Creatinine Ratio Glucose POC Glucose (other) 278 H 196 H Calcium Phosphorus Magnesium Total Creatine Kinase Procalcitonin 10.80 H TSH Free T4 03/31/21 03/31/21 03/31/21 00:14 03:35 04:27 WBC 19.43 H RBC 2.73 L Hgb 7.8 L Hct 26.0 L MCV 95.2 MCH 28.6 MCHC 30.0 L RDW Std Deviation 49.5 H RDW Coeff of Natali 14.3 Plt Count 360 MPV 10.7 H Immature Gran % (Auto) 2.6 Neut % (Auto) 80.6 Lymph % (Auto) 10.3 Peach % (Auto) 6.3 Eos % (Auto) 0.0 Baso % (Auto) 0.2 Neut # (Auto) 15.67 H Lymph # (Auto) 2.00 Peach # (Auto) 1.23 H Eos # (Auto) 0.00 Baso # (Auto) 0.03 Immature Gran # (Auto) 0.50 H Absolute Nucleated RBC 0.06 H Nucleated RBC % (auto) 0.3 RBC Morphology Unremarkable Sample Site R Radial POC pH 7.39 POC pCO2 67 H POC pO2 77 L POC HCO3 40 H POC Total CO2 > 40 H* POC Base Excess 15.0 H POC ABG O2 Sat 94.0 Rafa Test NA O2 Delivery Device Ventilator POC O2 Rate 20 Tidal Volume 370 PEEP 6 Sodium Potassium Chloride Carbon Dioxide Anion Gap BUN Creatinine Est Cr Clr Drug Dosing Est GFR ( Amer) Est GFR (Non-Af Amer) BUN/Creatinine Ratio Glucose POC Glucose (other) 197 H Calcium Phosphorus Magnesium Total Creatine Kinase Procalcitonin TSH Free T4 03/31/21 03/31/21 03/31/21 04:27 04:27 04:31 WBC RBC Hgb Hct MCV MCH MCHC RDW Std Deviation RDW Coeff of Natali Plt Count MPV Immature Gran % (Auto) Neut % (Auto) Lymph % (Auto) Peach % (Auto) Eos % (Auto) Baso % (Auto) Neut # (Auto) Lymph # (Auto) Peach # (Auto) Eos # (Auto) Baso # (Auto) Immature Gran # (Auto) Absolute Nucleated RBC Nucleated RBC % (auto) RBC Morphology Sample Site POC pH POC pCO2 POC pO2 POC HCO3 POC Total CO2 POC Base Excess POC ABG O2 Sat Rafa Test O2 Delivery Device POC O2 Rate Tidal Volume PEEP Sodium 140 Potassium 3.3 L D Chloride 101 Carbon Dioxide 34 H Anion Gap 5.0 BUN 72 H Creatinine 1.00 Est Cr Clr Drug Dosing 103.8 Est GFR ( Amer) 95.7 Est GFR (Non-Af Amer) 82.6 BUN/Creatinine Ratio 72.3 H Glucose 229 H POC Glucose (other) 185 H Calcium 8.2 L Phosphorus 3.8 Magnesium 2.4 Total Creatine Kinase 205 Procalcitonin TSH Free T4 03/31/21 03/31/21 03/31/21 08:06 11:17 11:45 WBC RBC Hgb 8.9 L Hct 30.4 L MCV MCH MCHC RDW Std Deviation RDW Coeff of Natali Plt Count MPV Immature Gran % (Auto) Neut % (Auto) Lymph % (Auto) Peach % (Auto) Eos % (Auto) Baso % (Auto) Neut # (Auto) Lymph # (Auto) Peach # (Auto) Eos # (Auto) Baso # (Auto) Immature Gran # (Auto) Absolute Nucleated RBC Nucleated RBC % (auto) RBC Morphology Sample Site POC pH POC pCO2 POC pO2 POC HCO3 POC Total CO2 POC Base Excess POC ABG O2 Sat Rafa Test O2 Delivery Device POC O2 Rate Tidal Volume PEEP Sodium Potassium Chloride Carbon Dioxide Anion Gap BUN Creatinine Est Cr Clr Drug Dosing Est GFR ( Amer) Est GFR (Non-Af Amer) BUN/Creatinine Ratio Glucose POC Glucose (other) 260 H 172 H Calcium Phosphorus Magnesium Total Creatine Kinase Procalcitonin TSH Free T4 Medications Administered Current Inpatient Medications Albuterol (Albut/Ipratrop 3mg/0.5mg Neb 3 Ml Vial) 3 ml NEB Q4 PRN PRN Reason: Shortness Of Breath Or Wheezing Stop: 04/01/21 09:21 Last Admin: 03/14/21 07:23 Dose: 3 ml Documented by: Bupropion HCl (Bupropion Hcl 100 Mg Tablet) 100 mg PO TID [facility] Stop: 04/22/21 13:59 Last Admin: 03/30/21 08:49 Dose: 100 mg Documented by: Diphenhydramine HCl (Diphenhydramine Capsule 25 Mg Cap) 25 mg PO Q8H PRN PRN Reason: Itching Stop: 04/01/21 17:24 Last Admin: 03/02/21 17:36 Dose: 25 mg Documented by: Docusate Sodium (Docusate Sodium Syrup 100 Mg/10 Ml Udc) 100 mg PO BID [facility] Stop: 04/24/21 09:44 Last Admin: 03/31/21 07:57 Dose: 100 mg Documented by: Enoxaparin Sodium (Enoxaparin Inj 120 Mg/0.8 Ml Syr) 111 mg SQ Q12H RICARDO Stop: 04/24/21 20:59 Last Admin: 03/29/21 20:44 Dose: 111 mg Documented by: Enteral Nutritional Formula (Novasource Renal 2.0 Nelson 1000ml Bag) 1,000 ml NG UD RICARDO; Protocol Stop: 04/28/21 13:44 Last Admin: 03/29/21 17:18 Dose: 1,000 ml Documented by: Fluoxetine HCl (Fluoxetine Hcl 20 Mg/5 Ml 120ml Btl) 60 mg PO QAM [facility] Stop: 04/29/21 08:59 Last Admin: 03/30/21 08:50 Dose: 60 mg Documented by: Furosemide (Furosemide 40 Mg/4 Ml Vial) 40 mg IV DAILY RICARDO Stop: 04/19/21 08:59 Last Admin: 03/29/21 08:00 Dose: 40 mg Documented by: Gabapentin (Gabapentin 250 Mg/5 Ml 470 Ml Btl) 400 mg PO TID RICARDO Stop: 04/23/21 08:59 Last Admin: 03/31/21 08:21 Dose: 400 mg Documented by: Midazolam HCl (Versed) 125 mg in 250 mls @ 0 mls/hr IV .Q0M [facility]; Protocol Stop: 04/28/21 13:14 Last Titration: 03/31/21 11:50 Dose: 0 mg/hr, 0 mls/hr Documented by: Pantoprazole Sodium 40 mg/ (Syringe) 10 mls @ 5 mls/min IV BID RICARDO Stop: 04/29/21 20:59 Last Admin: 03/31/21 08:21 Dose: 5 mls/min Documented by: Potassium Chloride (K Prashanth / Wtr) 20 meq in 100 mls @ 50 mls/hr IV Q2H [facility]; Protocol Stop: 03/31/21 12:14 Last Admin: 03/31/21 11:16 Dose: 50 mls/hr Documented by: Phenylephrine HCl 100 mg/ (Dextrose) 500 mls @ 25.92 mls/hr IV .[id number] [facility]; Protocol Stop: 04/30/21 08:29 Last Titration: 03/31/21 11:50 Dose: 0.8 mcg/kg/min, 25.9 mls/hr Documented by: Dexamethasone 2.5 mg/ Syringe 0.625 mls @ 1 mls/min IV DAILY [facility] Stop: 04/03/21 09:01 Piperacillin Sod/Tazobactam (Sod 4.5 gm/ Dextrose) 120 mls @ 240 mls/hr IV TODAY@1600 ONE; Protocol Stop: 03/31/21 16:29 Piperacillin Sod/Tazobactam (Sod 4.5 gm/ Dextrose) 120 mls @ 30 mls/hr IV Q8H [facility]; Protocol Stop: 04/07/21 21:59 Insulin Aspart (Insulin Aspart Per Unit) 0 units SC Q4 [facility] Stop: 04/24/21 11:59 Last Admin: 03/31/21 11:22 Dose: 4 units Documented by: Midazolam HCl (Midazolam Bolus From Bag) 2 mg IV Q60M PRN PRN Reason: Sedation Stop: 04/28/21 13:07 Miscellaneous Information (Piperacill/Tazobac Consult Active) 1 ea N/A UD PRN PRN Reason: Consult Stop: 04/30/21 10:23 Oxycodone HCl (Oxycodone Hcl Ir 5 Mg Tab (Immediate Release)) 10 mg PO Q8H [facility] Stop: 04/13/21 13:59 Last Admin: 03/31/21 05:34 Dose: 10 mg Documented by: Sennosides (Sennosides 8.8 Mg/5 Ml Udc) 17.6 mg PO QAM [facility] Stop: 04/22/21 08:59 Last Admin: 03/31/21 07:57 Dose: 17.6 mg Documented by: Sodium Biphosphate/Sodium Phosphate (Sod Phosphate/Sod Biphosphate Enema 132 Ml Btl) 132 ml MO TODAY@1100 [facility] Stop: 03/31/21 16:00 Last Admin: 03/31/21 11:21 Dose: 132 ml Documented by: Sterile Water (Tube Feeding Water Flush) 30 ml OG Q4H [facility] Stop: 04/20/21 15:59 Last Admin: 03/31/21 11:17 Dose: 30 ml Documented by: Verapamil HCl (Verapamil Hcl 2.5 Mg/Ml 2 Ml Vial) 5 mg IV Q4 PRN PRN Reason: Tachycardia Stop: 04/29/21 14:55 Last Admin: 03/31/21 02:52 Dose: 5 mg Documented by: Verapamil HCl (Verapamil Hcl 2.5 Mg/Ml 2 Ml Vial) 5 mg IV Q4 [facility] Stop: 04/30/21 11:59 Last Admin: 03/31/21 11:17 Dose: 5 mg Documented by:
[2021-03-31 12:24] LABS: iSTAT Potassium 4.5 mmol/L (3.3-5.0); iSTAT Sodium 143 mmol/L (135-144)
[2021-03-31 12:25] LABS: iSTAT Arterial Blood Gas HCO3 44 meg/L (19-24); iSTAT Arterial Blood Gas pCO2 72 mmHg (35-46); iSTAT Arterial Blood Gas pO2 61 mmHg (80-95); iSTAT Carbon Dioxide 46 mmol/L (24-31); iSTAT Hematocrit 26 % (42-52); iSTAT Hemoglobin 8.8 g/dl (14.0-18.0)
[2021-03-31 12:26] LABS: Patient Temperature 40.3; iSTAT Allen Test Not Performed
[2021-03-31 12:27] LABS: iSTAT Sample Type Arterial; iSTAT Site R Radial
[2021-03-31 12:31] LABS: iSTAT FiO2 50 %
[2021-03-31 12:34] LABS: iSTAT SpO2 93
[2021-03-31] MEDS: MIDAZOLAM HCL 125 MG/250 ML BAG IV SCH (15:24)
[2021-03-31] MEDS ORDERED: PIPERACILLIN/TAZOBACTAM 4.5 GM in DEXTROSE 5% 100 ML IV ONE (16:00)
--- NOTE | 2021-03-31 16:53 | Critical Care Progress Note ---
Date of Service March 31, 2021 Assessment & Plan (1) ARDS (adult respiratory distress syndrome): (2) Acute hypoxemic respiratory failure: (3) Pneumonia due to COVID-19 virus: Plan: Reason Critically Ill: Acute hypoxic respiratory failure secondary to COVID-19 pneumonia PLAN: Neuro: Sedation: On Versed drip Analgesia: On tapering oxycodone Propofol discontinued 03/29/2021 secondary to elevated triglycerides. cis atracurium secondary to induced hematoma at surgical site --> Discontinued 03/29/2021 --History of chronic low back pain -Continue gabapentin --Mood disorder with PTSD -Converted Wellbutrin XR to immediate release, continue with Prozac Resp: --Pneumothorax Spontaneous Small right-sided Continue to monitor -- VDRF with acute hypoxic respiratory failure Secondary to multilobar COVID-19 pneumonia Intubation 03/19 Tracheostomy: 03/23 COVID-19 PCR positive Finished azithromycin on 03/24/2021 Patient has completed 7 days of cefepime and doxycycline He has completed 10 days of dexamethasone --> s/p DEXA ARDS He did get 6 days of baricitinib which was discontinued due to acute DVTs on 03/06/2021 S/p proning. Last proning was 03/21/2021 CV: --A flutter with RVR Amiodarone started 03/29/2021, another bolus given 03/30/2021, discontinued 03/30/2021 S/p cardioversion 200 J x 3 03/30/2021 Cardiology has been consulted -Hypotension Continue with vasopressor support to keep MAP greater than 65 ID: --Fever -Repeat blood cultures obtained 03/24 -2 bottle positive for cocci in chains: Gamma strep, coag negative staph -repeat cultures 03/26 no growth to date Central line and arterial line removed 03/24 -UA 03/26 unremarkable -Caspofungin added 03/29/2021, discontinued 03/31/2021 -Sputum culture Serratia--> antibiotics changed from Rocephin to meropenem on 03/30/2021--> changed to Zosyn 03/31/2021 S/p dose of cyproheptadine for possible serotonin syndrome on 03/30/2021 Renal: Monitor BUNs/creatinine GI/Nutrition: Continue with tube feeding Constipation last bowel movement 12/31 Continue with Colace and senna Heme: --Acute DVTs Continue with therapeutic Lovenox --Hematoma around the trach site Active bleeding is stopped 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 Decrease the dexamethasone taper to 2.5 mg for 3 days and then stop Change meropenem to Zosyn given the sputum culture is growing Serratia which is sensitive. I would like to give anaerobic coverage given the collection/hematoma around the trach site. Diltiazem has been discontinued by cardiology and patient will be started on verapamil scheduled along with as needed verapamil if need be. Patient will be given another dose of enema today. Hemoglobin is trending down. Repeat H&H later today. Continue to hold Lovenox for the time being. If hemoglobin is stable can resume with next dose. Patient's Mellissa haas [phone] I have personally spent 37 minutes of critical care time in the direct kamari gement of this patient. This is a life/limb threatening event. This includes time spent evaluating patient, direct bedside care, chart review, placing orders, interpretation of diagnostic studies, discussion with consultants, patient, and family members, as well as other required patient management activities. This time is exclusive of all separately billable procedures, and teaching time and separate from and in addition to any other critical care service time. Please note the above document was generated using voice recognition software. It may contain grammatical, syntax or spelling errors. Admission and Anticipated Discharge Date Admission Date: March 01, 2021 Subjective Patient seen and examined at bedside. No acute distress, no adverse events overnight Patient was on diltiazem drip while in the morning. He is on phenylephrine one MCG, I went down to 0.8 He was on 4 of midazolam. I went down to 3. He was breathing over the vent. I change his vent to pressure support and he was doing well. Has been having low-grade fevers. Review of Systems Review of Systems: Unobtainable due to endotracheal tube Physical Exam Physical Exam: Constitutional: No acute distress HEENT: PERRLA, positive trach, positive indurated edema around the trach site Respiratory system: Decreased entry bilaterally, no wheeze, no rhonchi, positive crackles bilaterally CVS: S1-S2 positive, no murmurs or gallops Abdomen: Soft, nontender, nondistended, positive bowel sounds x4, obese Extremities: +2 pulses bilaterally radialis/ dorsalis pedis, no cyanosis, no edema Neuro: Sedated, breathing over the vent Psych: Unable to assess G/U: Positive Hernandez Skin: no rashes, warm and dry Lymphatic: no cervical or axillary lymphadenopathy Results & Data Results & Data ([facility]) Vital Signs (Past 12 Hours) Vital Signs Temp Pulse Resp BP Pulse Ox 03/31/21 16:30 130 H 19 94 03/31/21 16:26 123 H 23 124/94 93 03/31/21 16:00 106 H 21 94 03/31/21 15:56 105 H 21 103/61 03/31/21 15:51 113 H 03/31/21 15:30 127 H 21 92 03/31/21 15:26 126 H 23 109/79 03/31/21 15:09 142 H 28 H 92 03/31/21 15:00 124 H 22 91 03/31/21 14:56 148 H 20 133/44 L 03/31/21 14:30 125 H 23 91 03/31/21 14:26 145 H 25 H 112/78 92 03/31/21 14:00 37.2 C 136 H 24 90 03/31/21 13:56 126 H 33 H 127/64 98 03/31/21 13:30 150 H 17 100 03/31/21 13:27 118 H 19 140/95 91 03/31/21 13:00 112 H 41 H 89 L 03/31/21 12:57 120 H 18 148/86 H 88 L 03/31/21 12:30 133 H 25 H 91 03/31/21 12:26 124 H 24 117/84 92 03/31/21 12:00 37.3 C 127 H 25 H 92 03/31/21 11:56 124 H 33 H 123/89 91 03/31/21 11:40 86 26 H 96 03/31/21 11:30 110 H 38 H 100 03/31/21 11:26 96 H 23 83/57 L 93 03/31/21 10:56 125 H 18 129/89 93 03/31/21 10:27 97 H 25 H 106/75 94 03/31/21 10:00 37.1 C 99 H 27 H 96 03/31/21 09:56 109 H 17 121/71 97 03/31/21 09:26 103 H 30 H 103/61 95 03/31/21 08:56 90 18 109/74 95 03/31/21 08:26 113 H 22 120/69 96 03/31/21 08:14 104 H 25 H 95 03/31/21 08:00 37.0 C 115 H 20 95 03/31/21 07:56 109 H 21 114/79 95 03/31/21 07:50 100 H 03/31/21 07:27 115 H 22 109/62 95 03/31/21 06:56 113 H 24 98/74 L 89 L 03/31/21 06:15 102 H 16 93 03/31/21 06:00 100 H 17 94 03/31/21 05:56 109 H 20 121/66 93 03/31/21 05:45 115 H 18 93 03/31/21 05:30 102 H 21 93 03/31/21 05:26 101 H 21 115/66 94 03/31/21 05:15 108 H 20 93 03/31/21 05:00 117 H 20 93 03/31/21 04:56 117 H 21 136/90 92 Laboratory Results 03/31/21 11:45 03/31/21 04:27 Coding Level of Care Code Critical Care 1st 30-74 mins Diagnoses ARDS (adult respiratory distress syndrome) J80 Acute hypoxemic respiratory failure J96.01 Pneumonia due to COVID-19 virus U07.1; J12.82 Time Spent (min) 37
[2021-03-31] MEDS ORDERED: LANTUS PER UNIT CHARGE SQ ONE (17:00)
--- NOTE | 2021-03-31 18:41 | Hospitalist Progress Note ---
Date of Service March 31, 2021 Assessment & Plan (1) Acute hypoxemic respiratory failure: Plan: per Dr. Tuttle's notes with addendum: Acute respiratory failure with hypoxia Multifocal COVID pneumonia COVID Screen: Positive 02/28/21 CTA:No CTA evidence for pulmonary embolus. Extensive groundglass opacities are present throughout both lungs characteristic of a viral type pneumonitis Completed dexamethasone 10 days course Got baricitinib given for 6 days but discontinued due to acute DVTs (03/06/21) Had completed abx with cefepime and doxycycline for 7 days Remdesivir discontinued by pulmonary service 03/31/21 afebrile now on Zosyn on Dexamethasone taper Vent Mgt per [employer] Deep venous thrombosis posterior tibial and peroneal veins In the setting of COVID-19 infection & baricitinib use Patient reports family history of blood clots Lovenox held #. Aflutter w/ RVR Verapamil started Mild indirect bilirubinemia, elevated alk phos Resolved Liver ultrasound:The liver is normal in size and echogenicity. Incidental note is made of a small cyst within the liver. Hyponatremia Hypokalemia monitor and replete as appropriate Hold HCTZ for now while on iv lasix Hypertension Antihypertensive on hold while on sedation Chronic back pain Patient plans to follow up with Neurosurgery as outpatient Mood disorder/PTSD DVT Px: Lovenox held, SCDs while off of Anticoagulation Prognosis guarded. Full code Admission and Anticipated Discharge Date Admission Date: March 01, 2021 Subjective ff up for acute hypoxic respiratory failure, covid 19 PNA, etc sedate, on trach not in distress no signs of pain afebrile no other issues noted Review of Systems Review of Systems: Unobtainable due to endotracheal tube and Unobtainable due to reduced consciousness Physical Exam Physical Exam: General-not in distress, breathing with no effort or accessory muscle use Eyes- anicteric Neck- no JVD trach in place: no bleeding, discharge Lungs- (+) crackles BL anteriorly Heart- normal rate, regular rhythm; no murmurs Abdomen- normal bowel sounds, nondistended, soft Extremities- mild extremity edema, no calf tenderness Neuro- sedate; no gross focal neurologic deficits Skin- warm & dry Results & Data Results & Data ([facility]) Vital Signs (Past 12 Hours) Vital Signs Temp Pulse Resp BP Pulse Ox 03/31/21 16:30 130 H 19 94 03/31/21 16:26 123 H 23 124/94 93 03/31/21 16:00 106 H 21 94 03/31/21 15:56 105 H 21 103/61 03/31/21 15:51 113 H 03/31/21 15:30 127 H 21 92 03/31/21 15:26 126 H 23 109/79 03/31/21 15:09 142 H 28 H 92 03/31/21 15:00 124 H 22 91 03/31/21 14:56 148 H 20 133/44 L 03/31/21 14:30 125 H 23 91 03/31/21 14:26 145 H 25 H 112/78 92 03/31/21 14:00 37.2 C 136 H 24 90 03/31/21 13:56 126 H 33 H 127/64 98 03/31/21 13:30 150 H 17 100 03/31/21 13:27 118 H 19 140/95 91 03/31/21 13:00 112 H 41 H 89 L 03/31/21 12:57 120 H 18 148/86 H 88 L 03/31/21 12:30 133 H 25 H 91 03/31/21 12:26 124 H 24 117/84 92 03/31/21 12:00 37.3 C 127 H 25 H 92 03/31/21 11:56 124 H 33 H 123/89 91 03/31/21 11:40 86 26 H 96 03/31/21 11:30 110 H 38 H 100 03/31/21 11:26 96 H 23 83/57 L 93 03/31/21 10:56 125 H 18 129/89 93 03/31/21 10:27 97 H 25 H 106/75 94 03/31/21 10:00 37.1 C 99 H 27 H 96 03/31/21 09:56 109 H 17 121/71 97 03/31/21 09:26 103 H 30 H 103/61 95 03/31/21 08:56 90 18 109/74 95 03/31/21 08:26 113 H 22 120/69 96 03/31/21 08:14 104 H 25 H 95 03/31/21 08:00 37.0 C 115 H 20 95 03/31/21 07:56 109 H 21 114/79 95 03/31/21 07:50 100 H 03/31/21 07:27 115 H 22 109/62 95 03/31/21 06:56 113 H 24 98/74 L 89 L all noted and reviewed including below
[2021-03-31] MEDS: PIPERACILLIN/TAZOBACTAM 4.5 GM in DEXTROSE 5% 100 ML IV SCH (21:31)
[2021-04-01] MEDS: VERAPAMIL HCL 2.5 MG/ML 2 ML VIAL IV SCH ×6 (00:35→20:21)
[2021-04-01] MEDS: INSULIN ASPART PER UNIT SC SCH ×6 (00:39→20:49)
[2021-04-01] MEDS ORDERED: METOPROLOL TARTRATE 1 MG/ML VIAL IV STA ×2 (01:11→06:06)
[2021-04-01] MEDS: NOVASOURCE RENAL 2.0 CAL 1000ML BAG NG SCH (02:16)
[2021-04-01] MEDS: TUBE FEEDING WATER FLUSH OG SCH ×5 (03:45→20:21)
[2021-04-01 05:03] LABS: Hematocrit (blood only) 28.2 % (42-52); Hemoglobin 8.5 g/dL (14.0-18.0); Mean Corpuscular Hemoglobin 28.7 pg (25-34); Mean Corpuscular Hgb Conc 30.1 g/dL (32-36); Mean Corpuscular Volume 95.3 fL (80-100); Nucleated RBC # (auto) 0.12 K/uL (0-0); Nucleated RBC % (auto) 0.5 %; Platelet Count 441 K/uL (130-400); RDW Coefficient of Variation 14.2 % (11.5-14.5); RDW Standard Deviation 49.1 fL (36.4-46.3); Red Blood Count 2.96 M/uL (4.7-6.1); White Blood Count 24.31 K/uL (4.8-10.8)
[2021-04-01 05:21] LABS: BUN Creatinine Ratio 73.3 (10-20); Calcium 9.1 mg/dl (8.5-10.1); Creatinine Clr Calc Pharmacy 136.6 ml/min; Est GFR (African American) 116.6 ml/min; Est GFR (Non-African American) 100.6 ml/min; Magnesium 2.6 mg/dl (1.8-2.4); Phosphorus 2.5 mg/dl (2.5-4.9); Potassium 4.1 mmol/L (3.5-5.1)
[2021-04-01 05:22] LABS: Basophils # (auto) 0.02 K/uL (0-0.2); Basophils % (auto) 0.1 %; Immature Granulocytes # (auto) 0.27 K/uL (0.00-0.02); Immature Granulocytes % (auto) 1.1 %; Lymphocytes # (auto) 1.97 K/uL (1.2-3.4); Lymphocytes % (auto) 8.1 %; Monocytes # (auto) 1.62 K/uL (0.11-0.59); Monocytes % (auto) 6.7 %; Neutrophils # (auto) 20.43 K/uL (1.4-6.5)
[2021-04-01] MEDS: MIDAZOLAM HCL 125 MG/250 ML BAG IV SCH ×2 (05:28→15:27)
[2021-04-01] MEDS: oxyCODONE HCL IR 5 MG TAB (IMMEDIATE RELEASE) PO SCH ×3 (05:30→21:50)
[2021-04-01] MEDS: PIPERACILLIN/TAZOBACTAM 4.5 GM in DEXTROSE 5% 100 ML IV SCH ×3 (05:30→21:49)
[2021-04-01 05:46] LABS: iSTAT Allen Test Pass; iSTAT Arterial Blood Gas HCO3 40 meg/L (19-24); iSTAT Arterial Blood Gas pCO2 48 mmHg (35-46); iSTAT Arterial Blood Gas pH 7.54 (7.35-7.45); iSTAT Arterial Blood Gas pO2 61 mmHg (80-95); iSTAT Carbon Dioxide > 40 mmol/L (24-31); iSTAT Site R Radial
--- NOTE | 2021-04-01 07:47 | XRay Report ---
XR chest 1V portable HISTORY: Respiratory failure. Shortness of breath. COMPARISON: Chest 03/31/2021. FINDINGS: Small right pneumothorax is increased in size. This measures a maximal pleural gap of 7 mm. Patchy bilateral airspace opacities persist. Lines and tubes remain unchanged in position. IMPRESSION: 1. Increase in size in the small right pneumothorax. Continued follow-up recommended. 2. Satisfactory support line placement. 3. No change in the multifocal pneumonia. ACT 112: Negative or not required by law. Electronically signed by: Sree Natarajan M.D. 04/01/2021 7:45 AM
[2021-04-01] MEDS: PANTOprazole 40 MG in SYRINGE 0 ML IV SCH ×2 (08:42→20:28)
[2021-04-01] MEDS: DEXAMETHASONE IV SCH (08:42)
[2021-04-01] MEDS: SENNOSIDES 8.8 MG/5 ML UDC PO SCH (08:42)
[2021-04-01] MEDS: DOCUSATE SODIUM SYRUP 100 MG/10 ML UDC PO SCH ×2 (08:42→20:22)
[2021-04-01] MEDS: GABAPENTIN 250 MG/5 ML 470 ML BTL PO SCH ×3 (08:42→20:26)
[2021-04-01] MEDS: MIDAZOLAM BOLUS FROM BAG IV PRN ×2 (09:12→15:28)
[2021-04-01] MEDS ORDERED: DIGOXIN 500 MCG in SYRINGE 9 ML IV STA (09:34)
--- NOTE | 2021-04-01 09:36 | Cardiology Progress Note ---
Date of Service April 01, 2021 Assessment & Plan (1) ARDS (adult respiratory distress syndrome): (2) Hypoxia: (3) Pneumonia due to COVID-19 virus: (4) Atrial flutter: Plan: The patient at first did well with IV verapamil with good heart rate control. Unfortunately, he is now having atrial flutter with heart rates in the 150s and 160s consistently despite IV verapamil and boluses of IV metoprolol. At this point I believe the only other AV jose blocking agent that we can utilize to help bring his heart rate under control is digoxin. I realized that there is some risk with the combination of verapamil and digoxin but I do not really see an alternative. I will try a bolus of 500 mcg IV now. We will not start him on additional doses to load him for daily dose yet until we see how he responds. Admission and Anticipated Discharge Date Admission Date: March 01, 2021 Subjective The patient remains intubated and sedated. Review of Systems Review of Systems: Not obtainable Physical Exam Physical Exam: General: The patient is on a ventilator trached Head: normocephalic, no masses, lesions, tenderness or abnormalities Eyes: conjunctiva are pink and non-injected, sclera clear Neck: supple, no adenopathy, no bruits, normal jugular venous pulse, no hepatojugular reflux Chest: normal shape and normal respiratory effort Lungs: Equal breath sounds bilaterally Cardiac Exam: - irregular rate & rhythm, no murmurs gallops or rubs - normal S1, normal S2 Pulses: 2(+) throughout Abdomen: abdomen soft, non-tender, no abnormal masses and no hepatosplenomegaly Musculoskeletal: no gait disturbance, no joint inflammation, no deforming arthritis Extremities: no edema and no cyanosis Neuro: grossly normal exam Results & Data ([facility]) Vital Signs (Past 12 Hours) Vital Signs Temp Pulse Resp BP Pulse Ox 04/01/21 09:00 157 H 8 L 89 L 04/01/21 08:56 150 H 0 L 105/85 04/01/21 08:30 163 H 13 92 04/01/21 08:26 169 H 0 L 94/68 L 04/01/21 08:00 37.9 C H 161 H 1 L 93 04/01/21 07:56 170 H 2 L 107/65 04/01/21 07:30 168 H 3 L 93 04/01/21 07:26 155 H 2 L 115/78 04/01/21 07:00 155 H 0 L 87 L 04/01/21 06:56 140 H 9 L 114/81 92 04/01/21 06:30 149 H 22 103/75 94 04/01/21 06:27 150 H 04/01/21 06:00 149 H 24 90/64 L 95 04/01/21 05:30 149 H 20 131/82 92 04/01/21 05:00 150 H 20 114/79 93 04/01/21 04:30 130 H 22 97/60 L 94 04/01/21 04:00 37.7 C H 136 H 22 103/73 93 04/01/21 03:35 124 H 22 91 04/01/21 03:30 143 H 24 104/73 93 04/01/21 03:00 141 H 24 109/71 94 04/01/21 02:30 150 H 22 89/76 L 96 04/01/21 02:00 112 H 20 92/66 L 96 04/01/21 01:35 140 H 04/01/21 01:30 142 H 20 88/74 L 94 04/01/21 01:00 133 H 22 108/65 93 04/01/21 00:30 160 H 24 103/60 92 04/01/21 00:00 37.1 C 142 H 24 121/82 95 03/31/21 23:50 119 H 23 92 03/31/21 23:30 144 H 22 115/83 96 03/31/21 23:00 139 H 20 110/85 94 03/31/21 22:30 138 H 20 96 03/31/21 22:00 126 H 22 129/79 95 Laboratory Results Laboratory Results - last 24 hr 03/30/21 03/31/21 03/31/21 05:45 04:27 11:17 WBC RBC Hgb POC Hgb 8.8 L Hct POC Hct 26 L MCV MCH MCHC RDW Std Deviation RDW Coeff of Natali Plt Count MPV Immature Gran % (Auto) Neut % (Auto) Lymph % (Auto) [place] % (Auto) Eos % (Auto) Baso % (Auto) Neut # (Auto) Lymph # (Auto) [place] # (Auto) Eos # (Auto) Baso # (Auto) Immature Gran # (Auto) Absolute Nucleated RBC Nucleated RBC % (auto) Specimen Type Arterial Sample Site R Radial Patient Temperature 40.3 POC pH 7.40 POC pCO2 72 H POC pO2 61 L POC HCO3 44 H POC Total CO2 46 H* POC Base Excess 19.0 H O2 Sat Pulse Oximetry 93 POC ABG O2 Sat 89.0 L Rafa Test Not Performed O2 Delivery Device Ventilator POC O2 Rate 26 Minute Ventilation Vent Mode AC POC FiO2 50 Tidal Volume End Tidal CO2 63 PEEP 6 POC Sodium 143 Sodium POC Potassium 4.5 Potassium Chloride Carbon Dioxide Anion Gap BUN Creatinine Est Cr Clr Drug Dosing Est GFR ( Amer) Est GFR (Non-Af Amer) BUN/Creatinine Ratio Glucose POC Glucose POC Glucose (other) 172 H Calcium Phosphorus Magnesium Total Creatine Kinase 205 03/31/21 03/31/21 03/31/21 11:45 15:22 20:20 WBC RBC Hgb 8.9 L POC Hgb Hct 30.4 L POC Hct MCV MCH MCHC RDW Std Deviation RDW Coeff of Natali Plt Count MPV Immature Gran % (Auto) Neut % (Auto) Lymph % (Auto) [place] % (Auto) Eos % (Auto) Baso % (Auto) Neut # (Auto) Lymph # (Auto) [place] # (Auto) Eos # (Auto) Baso # (Auto) Immature Gran # (Auto) Absolute Nucleated RBC Nucleated RBC % (auto) Specimen Type Sample Site Patient Temperature POC pH POC pCO2 POC pO2 POC HCO3 POC Total CO2 POC Base Excess O2 Sat Pulse Oximetry POC ABG O2 Sat Rafa Test O2 Delivery Device POC O2 Rate Minute Ventilation Vent Mode POC FiO2 Tidal Volume End Tidal CO2 PEEP POC Sodium Sodium POC Potassium Potassium Chloride Carbon Dioxide Anion Gap BUN Creatinine Est Cr Clr Drug Dosing Est GFR ( Amer) Est GFR (Non-Af Amer) BUN/Creatinine Ratio Glucose POC Glucose 165 H POC Glucose (other) 221 H Calcium Phosphorus Magnesium Total Creatine Kinase 04/01/21 04/01/21 04/01/21 00:22 03:50 04:41 WBC RBC Hgb POC Hgb Hct POC Hct MCV MCH MCHC RDW Std Deviation RDW Coeff of Natali Plt Count MPV Immature Gran % (Auto) Neut % (Auto) Lymph % (Auto) [place] % (Auto) Eos % (Auto) Baso % (Auto) Neut # (Auto) Lymph # (Auto) [place] # (Auto) Eos # (Auto) Baso # (Auto) Immature Gran # (Auto) Absolute Nucleated RBC Nucleated RBC % (auto) Specimen Type Sample Site Patient Temperature POC pH POC pCO2 POC pO2 POC HCO3 POC Total CO2 POC Base Excess O2 Sat Pulse Oximetry POC ABG O2 Sat Rafa Test O2 Delivery Device POC O2 Rate Minute Ventilation Vent Mode POC FiO2 Tidal Volume End Tidal CO2 PEEP POC Sodium Sodium 139 POC Potassium Potassium 4.1 D Chloride 101 Carbon Dioxide 37 H Anion Gap 1.0 L BUN 56 H Creatinine 0.76 Est Cr Clr Drug Dosing 136.6 Est GFR ( Amer) 116.6 Est GFR (Non-Af Amer) 100.6 BUN/Creatinine Ratio 73.3 H Glucose 207 H POC Glucose 179 H 153 H POC Glucose (other) Calcium 9.1 Phosphorus 2.5 D Magnesium 2.6 H Total Creatine Kinase 04/01/21 04/01/21 04/01/21 04:41 05:06 08:01 WBC 24.31 H RBC 2.96 L Hgb 8.5 L POC Hgb Hct 28.2 L POC Hct MCV 95.3 MCH 28.7 MCHC 30.1 L RDW Std Deviation 49.1 H RDW Coeff of Natali 14.2 Plt Count 441 H MPV 11.0 H Immature Gran % (Auto) 1.1 Neut % (Auto) 84.0 Lymph % (Auto) 8.1 [place] % (Auto) 6.7 Eos % (Auto) 0.0 Baso % (Auto) 0.1 Neut # (Auto) 20.43 H Lymph # (Auto) 1.97 [place] # (Auto) 1.62 H Eos # (Auto) 0.00 Baso # (Auto) 0.02 Immature Gran # (Auto) 0.27 H Absolute Nucleated RBC 0.12 H Nucleated RBC % (auto) 0.5 Specimen Type Sample Site R Radial Patient Temperature POC pH 7.54 H* POC pCO2 48 H POC pO2 61 L POC HCO3 40 H POC Total CO2 > 40 H* POC Base Excess 18.0 H O2 Sat Pulse Oximetry POC ABG O2 Sat 93.0 Rafa Test Pass O2 Delivery Device Ventilator POC O2 Rate 28 Minute Ventilation 8 Vent Mode POC FiO2 Tidal Volume 370 End Tidal CO2 PEEP 6 POC Sodium Sodium POC Potassium Potassium Chloride Carbon Dioxide Anion Gap BUN Creatinine Est Cr Clr Drug Dosing Est GFR ( Amer) Est GFR (Non-Af Amer) BUN/Creatinine Ratio Glucose POC Glucose POC Glucose (other) 283 H Calcium Phosphorus Magnesium Total Creatine Kinase Medications Administered Current Inpatient Medications Bupropion HCl (Bupropion Hcl 100 Mg Tablet) 100 mg PO TID [facility] Stop: 04/22/21 13:59 Last Admin: 03/30/21 08:49 Dose: 100 mg Documented by: Diphenhydramine HCl (Diphenhydramine Capsule 25 Mg Cap) 25 mg PO Q8H PRN PRN Reason: Itching Stop: 04/01/21 17:24 Last Admin: 03/02/21 17:36 Dose: 25 mg Documented by: Docusate Sodium (Docusate Sodium Syrup 100 Mg/10 Ml Udc) 100 mg PO BID RICARDO Stop: 04/24/21 09:44 Last Admin: 04/01/21 08:42 Dose: 100 mg Documented by: Enoxaparin Sodium (Enoxaparin Inj 120 Mg/0.8 Ml Syr) 111 mg SQ Q12H RICARDO Stop: 04/24/21 20:59 Last Admin: 03/29/21 20:44 Dose: 111 mg Documented by: Enteral Nutritional Formula (Novasource Renal 2.0 Nelson 1000ml Bag) 1,000 ml NG UD [facility]; Protocol Stop: 04/28/21 13:44 Last Admin: 04/01/21 02:16 Dose: 1,000 ml Documented by: Fluoxetine HCl (Fluoxetine Hcl 20 Mg/5 Ml 120ml Btl) 60 mg PO QAM RICARDO Stop: 04/29/21 08:59 Last Admin: 03/30/21 08:50 Dose: 60 mg Documented by: Furosemide (Furosemide 40 Mg/4 Ml Vial) 40 mg IV DAILY RICARDO Stop: 04/19/21 08:59 Last Admin: 03/29/21 08:00 Dose: 40 mg Documented by: Gabapentin (Gabapentin 250 Mg/5 Ml 470 Ml Btl) 400 mg PO TID RICARDO Stop: 04/23/21 08:59 Last Admin: 04/01/21 08:42 Dose: 400 mg Documented by: Midazolam HCl (Versed) 125 mg in 250 mls @ 8 mls/hr IV .[id number] [facility]; Protocol Stop: 04/28/21 13:14 Last Titration: 04/01/21 07:17 Dose: 4 mg/hr, 8 mls/hr Documented by: Pantoprazole Sodium 40 mg/ (Syringe) 10 mls @ 5 mls/min IV BID [facility] Stop: 04/29/21 20:59 Last Admin: 04/01/21 08:42 Dose: 5 mls/min Documented by: Phenylephrine HCl 100 mg/ (Dextrose) 500 mls @ 11.016 mls/hr IV .Q24H [facility]; Protocol Stop: 04/30/21 08:29 Last Titration: 04/01/21 09:11 Dose: 0.34 mcg/kg/min, 11 mls/hr Documented by: Dexamethasone 2.5 mg/ Syringe 0.625 mls @ 1 mls/min IV DAILY [facility] Stop: 04/03/21 09:01 Last Admin: 04/01/21 08:42 Dose: 1 mls/min Documented by: Piperacillin Sod/Tazobactam (Sod 4.5 gm/ Dextrose) 120 mls @ 30 mls/hr IV Q8H [facility]; Protocol Stop: 04/07/21 21:59 Last Admin: 04/01/21 05:30 Dose: 30 mls/hr Documented by: Digoxin 500 mcg/ Syringe 11 mls @ 2 mls/min IV NOW STA Stop: 04/01/21 09:34 Insulin Aspart (Insulin Aspart Per Unit) 0 units SC Q4 [facility] Stop: 04/24/21 11:59 Last Admin: 04/01/21 08:41 Dose: 8 units Documented by: Midazolam HCl (Midazolam Bolus From Bag) 2 mg IV Q60M PRN PRN Reason: Sedation Stop: 04/28/21 13:07 Last Admin: 04/01/21 09:12 Dose: 2 mg Documented by: Miscellaneous Information (Piperacill/Tazobac Consult Active) 1 ea N/A UD PRN PRN Reason: Consult Stop: 04/30/21 10:23 Oxycodone HCl (Oxycodone Hcl Ir 5 Mg Tab (Immediate Release)) 10 mg PO Q8H [facility] Stop: 04/13/21 13:59 Last Admin: 04/01/21 05:30 Dose: 10 mg Documented by: Sennosides (Sennosides 8.8 Mg/5 Ml Udc) 17.6 mg PO QAM [facility] Stop: 04/22/21 08:59 Last Admin: 04/01/21 08:42 Dose: 17.6 mg Documented by: Sterile Water (Tube Feeding Water Flush) 30 ml OG Q4H [facility] Stop: 04/20/21 15:59 Last Admin: 04/01/21 03:45 Dose: 30 ml Documented by: Verapamil HCl (Verapamil Hcl 2.5 Mg/Ml 2 Ml Vial) 5 mg IV Q4 PRN PRN Reason: Tachycardia Stop: 04/29/21 14:55 Last Admin: 03/31/21 13:30 Dose: 5 mg Documented by: Verapamil HCl (Verapamil Hcl 2.5 Mg/Ml 2 Ml Vial) 5 mg IV Q4 [facility] Stop: 04/30/21 11:59 Last Admin: 04/01/21 03:45 Dose: 5 mg Documented by:
[2021-04-01] MEDS ORDERED: PHARMACY GLYCEMIC MGMT CONSULT PRN (09:51)
[2021-04-01] MEDS: DEXTROSE 5% IV SCH (10:36)
[2021-04-01] MEDS: PHENYLEPHRINE HCL IV SCH (10:36)
[2021-04-01] MEDS ORDERED: LANTUS PER UNIT CHARGE SQ ONE (11:00)
--- NOTE | 2021-04-01 11:10 | Ultrasound Report ---
ULTRASOUND BILATERAL LOWER EXTREMITY VENOUS CLINICAL HISTORY: Deep venous thrombosis. COMPARISON STUDY: Right lower extremity venous ultrasound dated 03/05/2021 TECHNIQUE: Real-time, grayscale, and color Doppler sonography of the deep veins of the right and left lower extremity was performed from the inguinal crease to the calf. Compression and augmentation wer e utilized. FINDINGS: Right lower extremity: There is likely persistent deep venous thrombosis within the right posterior t ibial and peroneal veins. The common femoral, superficial femoral, and popliteal veins are patent and normally compressible. The greater saphenous vein and the profunda femoris vein at the junction with the common femoral vein are clear. Superficial venous thrombus is again seen within the gastrocnemiu s veins. This approaches but does not extend into the popliteal vein. Left lower extremity: There is no sonographic evidence of deep venous thrombosis in the left lower ex tremity. The common femoral, superficial femoral, and popliteal veins are patent and normally timothy sible. The greater saphenous vein and the profunda femoris vein at the junction with the common femor al vein are clear. The visualized deep veins of the calf appear patent. Superficial venous thrombus i s identified in the calf. IMPRESSION: 1. Deep venous thrombosis is again seen in the right calf within the posterior tibial and peroneal ve ins. This is likely unchanged from 03/05/2021. 2. Superficial venous thrombus is present within both lower extremities. 3. There is no sonographic evidence of left lower extremity deep venous thrombosis. ACT 112: Negative or not required by law. Electronically signed by: Jesse Peguero M.D. 04/01/2021 11:09 AM
[2021-04-01] MEDS ORDERED: SODIUM CHLORIDE 0.9% IV SCH (12:30)
[2021-04-01] MEDS ORDERED: PHENYLEPHRINE HCL IV SCH (12:30)
--- NOTE | 2021-04-01 12:38 | Pharmacy Report ---
Pharmacy Glycemic Short Note 2 - Date of Service April 01, 2021 - Glycemic Short BSG Results (Last 24 hours): 03/31/21 03/31/21 04/01/21 15:22 20:20 00:22 Glucose POC Glucose 165 H 179 H POC Glucose (other) 221 H 04/01/21 04/01/21 04/01/21 03:50 04:41 08:01 Glucose 207 H POC Glucose 153 H POC Glucose (other) 283 H 04/01/21 12:00 Glucose POC Glucose POC Glucose (other) 157 H OUTPATIENT ANTIDIABETIC REGIMEN: * N/A * A1c = ? ASSESSMENT: * Patient currently admitted to ICU for multiple medical issues. He was initially admitted for resp failure due to COVID19 viral pna. He remains vent dependent s/p trach. He is receiving abx for serratia VAP. Dexamethasone IV continues however the dose is being tapered (he received a lesser dose today vs yesterday). A flutter has led to initiation of verapamil IV along w/ pheny.ephrine for pressor support. He has been receiving Novasource Renal tube feeds at 20cc/hr continuous. * BSGs checked via iSTAT tend to be much higher than those checked with Accuchek. iSTAT is preferred while receiving pressors. * Will adjust Novolog regimen to allow for greater doses to cover carbs in continous tube feeds. Will change base solution of pressors to NS to minimize IV dextrose. Will give a single dose of Lantus x 1 today. PLAN FOR INPATIENT GLYCEMIC CONTROL: * Basal insulin * Lantus 10 units x 1 * Bolus insulin * NovoLog per scale Q 4 hrs * Goal Range: Low 110 mg/dL - High 140 mg/dL * Correction Factor: 20 mg/dL/unit * Nutritional / Prandial insulin per carb ratio of 1 unit per 7 grams CHO consumed PLAN FOR DISCHARGE: * to be determined
[2021-04-01] MEDS ORDERED: DIGOXIN 250 MCG in SYRINGE 9 ML IV ONE (13:30)
--- NOTE | 2021-04-01 18:36 | Critical Care Progress Note ---
Date of Service April 01, 2021 Assessment & Plan (1) ARDS (adult respiratory distress syndrome): (2) Acute hypoxemic respiratory failure: (3) Pneumonia due to COVID-19 virus: Plan: Reason Critically Ill: Acute hypoxic respiratory failure secondary to COVID-19 pneumonia PLAN: Neuro: Sedation: On Versed drip Analgesia: On tapering oxycodone Propofol discontinued 03/29/2021 secondary to elevated triglycerides. cis atracurium secondary to induced hematoma at surgical site --> Discontinued 03/29/2021 --History of chronic low back pain -Continue gabapentin --Mood disorder with PTSD -Converted Wellbutrin XR to immediate release, continue with Prozac Resp: --Pneumothorax Spontaneous Right-sided Continue to monitor -- VDRF with acute hypoxic respiratory failure Secondary to multilobar COVID-19 pneumonia Intubation 03/19 Tracheostomy: 03/23 COVID-19 PCR positive Finished azithromycin on 03/24/2021 Patient has completed 7 days of cefepime and doxycycline He has completed 10 days of dexamethasone --> s/p DEXA ARDS He did get 6 days of baricitinib which was discontinued due to acute DVTs on 03/06/2021 S/p proning. Last proning was 03/21/2021 CV: --A flutter with RVR Amiodarone started 03/29/2021, another bolus given 03/30/2021, discontinued 03/30/2021 S/p cardioversion 200 J x 3 03/30/2021 Cardiology has been consulted -Hypotension Continue with vasopressor support to keep MAP greater than 65 ID: --Fever -Repeat blood cultures obtained 03/24 -2 bottle positive for cocci in chains: Gamma strep, coag negative staph -repeat cultures 03/26 no growth to date Central line and arterial line removed 03/24 -UA 03/26 unremarkable -Caspofungin added 03/29/2021, discontinued 03/31/2021 -Sputum culture Serratia--> antibiotics changed from Rocephin to meropenem on 03/30/2021--> changed to Zosyn 03/31/2021 S/p dose of cyproheptadine for possible serotonin syndrome on 03/30/2021 Renal: Monitor BUNs/creatinine GI/Nutrition: Constipation last bowel movement 03/26 Continue with Colace and senna Heme: --Acute DVTs Continue with therapeutic Lovenox --Hematoma around the trach site Active bleeding is stopped 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 fib with RVR. He has been getting preoperative [id number] and even got as needed pushes of metoprolol. Digoxin 500 MCG will be given today as per cardiology I will repeat Doppler bilateral lower extremity today to see if the patient still has a clot. Hold Lovenox today in the morning. He did get overnight dose and his hemoglobin has been stable Overall prognosis of the patient is guarded. Discussion regarding making the patient comfortable should be considered Patient's Mellissa complained [phone] I have personally spent 38 minutes of critical care time in the direct management of this patient. This is a life/limb threatening event. This includes time spent evaluating patient, direct bedside care, chart review, placing orders, interpretation of diagnostic studies, discussion with consultants, patient, and family members, as well as other required patient management activities. This time is exclusive of all separately billable procedures, and teaching time and separate from and in addition to any other critical care service time. Please note the above document was generated using voice recognition software. It may contain grammatical, syntax or spelling errors. Admission and Anticipated Discharge Date Admission Date: March 01, 2021 Subjective Patient seen and examined at bedside. Patient is still having low-grade fevers He was on midazolam 3 at the time of examination He still has occasional bouts where he moves his head and neck. Still having bleeding from the mouth as well as around the trach site On 0.33 of phenylephrine Review of Systems Review of Systems: Unobtainable due to endotracheal tube Physical Exam Physical Exam: Constitutional: No acute distress HEENT: PERRLA, positive trach, positive indurated edema around the trach site Respiratory system: Decreased entry bilaterally, no wheeze, no rhonchi, positive crackles bilaterally CVS: S1-S2 positive, no murmurs or gallops Abdomen: Soft, nontender, nondistended, positive bowel sounds x4, obese Extremities: +2 pulses bilaterally radialis/ dorsalis pedis, no cyanosis, no edema Neuro: Sedated, breathing over the vent Psych: Unable to assess G/U: Positive Hernandez Skin: no rashes, warm and dry Lymphatic: no cervical or axillary lymphadenopathy Results & Data Results & Data ([facility]) Vital Signs (Past 12 Hours) Vital Signs Temp Temp Pulse Resp BP Pulse Ox 04/01/21 18:00 37.7 C H 04/01/21 16:13 137 H 31 H 95 04/01/21 15:36 37.7 C H 04/01/21 15:35 37.7 C H 04/01/21 15:30 144 H 28 H 94 04/01/21 15:28 155 H 28 H 103/70 93 04/01/21 15:00 163 H 26 H 94 04/01/21 14:56 133 H 34 H 117/77 93 04/01/21 14:30 171 H 20 92 04/01/21 14:26 134 H 28 H 99/73 L 92 04/01/21 14:00 38.1 C H 147 H 28 H 93 04/01/21 13:56 142 H 30 H 115/79 94 04/01/21 13:30 168 H 31 H 94 04/01/21 13:27 141 H 24 112/66 94 04/01/21 13:22 150 H 04/01/21 13:00 38.5 C H 38.4 C H 152 H 25 H 94 04/01/21 12:56 172 H 29 H 89/60 L 93 04/01/21 12:30 151 H 28 H 92 04/01/21 12:27 145 H 17 79/62 L 93 04/01/21 12:00 38.5 C H 38.5 C H 163 H 91 04/01/21 11:57 166 H 106/64 92 04/01/21 11:30 160 H 91 04/01/21 11:26 167 H 35 H 124/77 92 04/01/21 11:25 155 H 25 H 91 01/06/22 11:00 143 H 91 04/01/21 10:56 132 H 116/75 04/01/21 10:30 163 H 109/75 93 04/01/21 10:26 168 H 120/77 04/01/21 10:00 37.9 C H 169 H 92 04/01/21 09:30 164 H 92/62 L 91 04/01/21 09:27 163 H 80/57 L 92 04/01/21 09:00 157 H 8 L 89 L 04/01/21 08:56 150 H 0 L 105/85 04/01/21 08:30 163 H 13 92 04/01/21 08:26 169 H 0 L 94/68 L 04/01/21 08:25 150 H 23 94 04/01/21 08:00 37.9 C H 161 H 1 L 93 04/01/21 07:56 170 H 2 L 107/65 04/01/21 07:30 168 H 3 L 93 04/01/21 07:26 155 H 2 L 115/78 04/01/21 07:00 155 H 0 L 87 L 04/01/21 06:56 140 H 9 L 114/81 92 Laboratory Results 04/01/21 04:41 04/01/21 04:41 Coding Level of Care Code Critical Care 1st 30-74 mins Diagnoses ARDS (adult respiratory distress syndrome) J80 Acute hypoxemic respiratory failure J96.01 Pneumonia due to COVID-19 virus U07.1; J12.82 Time Spent (min) 38
[2021-04-01] MEDS: ENOXAPARIN INJ 120 MG/0.8 ML SYR SQ SCH (20:22)
--- NOTE | 2021-04-01 20:43 | Hospitalist Progress Note ---
Date of Service April 01, 2021 Assessment & Plan (1) Acute hypoxemic respiratory failure: Plan: per Dr. Tuttle's notes with addendum: Acute respiratory failure with hypoxia Multifocal COVID pneumonia COVID Screen: Positive 02/28/21 CTA:No CTA evidence for pulmonary embolus. Extensive groundglass opacities are present throughout both lungs characteristic of a viral type pneumonitis Completed dexamethasone 10 days course Got baricitinib given for 6 days but discontinued due to acute DVTs (03/06/21) Had completed abx with cefepime and doxycycline for 7 days Remdesivir discontinued by pulmonary service Was on HFNC and with worsening resp status, was put on NIV and subsequently intubated on 03/19/21 Tracheostomy 03/23, on MV Vent and sedation management per community artist, andrew on propofol. Off on Nimbex today. Concern for developing fibrosis Finished azithro 03/24 and on dexamethasone ARDS protocol WBC fluctuating. Pt on Dexa ARDS protocol. Patient is having low-grade fever, 03/24 blood culture likely contaminant; 03/26 Bl Cx: NG so far. On Rocephin 03/26 --> changed to meropenem 03/30 (d/t sputum Cx growing GNB), On Caspofungin 03/29/21, management per ICU. 04/01/21 sedated, on trach (+) fever sputum culture: (+) Serratia abx changed to Zosyn IV on Dexamathasone, Lasix remains on Levophed Deep venous thrombosis posterior tibial and peroneal veins In the setting of COVID-19 infection & baricitinib use Patient reports family history of blood clots Lovenox BID #. Aflutter w/ RVR bout of aflutter w/ rvr, cardioverted twice, bolused with amio twice, on amio drip. cardiology consulted 04/01/21 on Verapamil on Lovenox Mild indirect bilirubinemia, elevated alk phos Resolved Liver ultrasound:The liver is normal in size and echogenicity. Incidental note is made of a small cyst within the liver. Hypertension Antihypertensive on hold while on sedation Chronic back pain Patient plans to follow up with Neurosurgery as outpatient Mood disorder/PTSD DVT Px: Lovenox held, SCDs while off of Anticoagulation Prognosis guarded. Full code Admission and Anticipated Discharge Date Admission Date: March 01, 2021 Subjective ff up for acute hypoxic respiratory failure, covid 19 pneumonia, etc sedated, on trach still on Levophed (+) atrial fibrillation , RVR (+) fever no signs of distress, pain no other issues per collections curator of Systems Review of Systems: all noted and negative except for above Physical Exam Physical Exam: General- sedated, breathing with no effort or accessory muscle use Eyes- anicteric Neck-(+) trach in place, no JVD Lungs- (+) rhonchi BL anteriorly Heart- mild tachy, irregularly irregular rhythm; no murmurs Abdomen- normal bowel sounds, nondistended, soft, nontender Extremities- no pretibial edema, no calf tenderness Neuro-sedated Skin- warm & dry Results & Data Results & Data ([facility]) Vital Signs (Past 12 Hours) Vital Signs Temp Temp Pulse Resp BP Pulse Ox 04/01/21 18:00 37.7 C H 04/01/21 16:13 137 H 31 H 95 04/01/21 15:36 37.7 C H 04/01/21 15:35 37.7 C H 04/01/21 15:30 144 H 28 H 94 04/01/21 15:28 155 H 28 H 103/70 93 04/01/21 15:00 163 H 26 H 94 04/01/21 14:56 133 H 34 H 117/77 93 04/01/21 14:30 171 H 20 92 04/01/21 14:26 134 H 28 H 99/73 L 92 04/01/21 14:00 38.1 C H 147 H 28 H 93 04/01/21 13:56 142 H 30 H 115/79 94 04/01/21 13:30 168 H 31 H 94 04/01/21 13:27 141 H 24 112/66 94 04/01/21 13:22 150 H 04/01/21 13:00 38.5 C H 38.4 C H 152 H 25 H 94 04/01/21 12:56 172 H 29 H 89/60 L 93 04/01/21 12:30 151 H 28 H 92 04/01/21 12:27 145 H 17 79/62 L 93 04/01/21 12:00 38.5 C H 38.5 C H 163 H 91 04/01/21 11:57 166 H 106/64 92 04/01/21 11:30 160 H 91 04/01/21 11:26 167 H 35 H 124/77 92 04/01/21 11:25 155 H 25 H 91 04/01/21 11:00 143 H 91 04/01/21 10:56 132 H 116/75 04/01/21 10:30 163 H 109/75 93 04/01/21 10:26 168 H 120/77 04/01/21 10:00 37.9 C H 169 H 92 04/01/21 09:30 164 H 92/62 L 91 04/01/21 09:27 163 H 80/57 L 92 04/01/21 09:00 157 H 8 L 89 L 04/01/21 08:56 150 H 0 L 105/85 all noted and reviewed including below
[2021-04-01] MEDS: VERAPAMIL HCL 2.5 MG/ML 2 ML VIAL IV PRN (22:45)
[2021-04-02] MEDS: TUBE FEEDING WATER FLUSH OG SCH ×7 (00:29→23:13)
[2021-04-02] MEDS: VERAPAMIL HCL 2.5 MG/ML 2 ML VIAL IV SCH ×7 (00:29→23:14)
[2021-04-02] MEDS: INSULIN ASPART PER UNIT SC SCH ×7 (00:51→23:32)
[2021-04-02] MEDS: MIDAZOLAM HCL 125 MG/250 ML BAG IV SCH ×2 (03:39→12:07)
[2021-04-02 04:56] LABS: Basophils # (auto) 0.02 K/uL (0-0.2); Basophils % (auto) 0.1 %; Eosinophils # (auto) 0.02 K/uL (0-0.5); Eosinophils % (auto) 0.1 %; Hematocrit (blood only) 27.9 % (42-52); Hemoglobin 8.5 g/dL (14.0-18.0); Immature Granulocytes # (auto) 0.18 K/uL (0.00-0.02); Immature Granulocytes % (auto) 0.9 %; Lymphocytes # (auto) 1.98 K/uL (1.2-3.4); Mean Corpuscular Hemoglobin 28.8 pg (25-34); Mean Corpuscular Hgb Conc 30.5 g/dL (32-36); Mean Corpuscular Volume 94.6 fL (80-100); Monocytes # (auto) 1.44 K/uL (0.11-0.59); Monocytes % (auto) 7.3 %; Neutrophils # (auto) 16.14 K/uL (1.4-6.5); Neutrophils % (auto) 81.6 %; Platelet Count 439 K/uL (130-400); RDW Coefficient of Variation 14.2 % (11.5-14.5); Red Blood Count 2.95 M/uL (4.7-6.1); White Blood Count 19.78 K/uL (4.8-10.8)
[2021-04-02 05:14] LABS: Creatinine Clr Calc Pharmacy 138.4 ml/min; Est GFR (African American) 117.2 ml/min; Est GFR (Non-African American) 101.1 ml/min; Magnesium 2.5 mg/dl (1.8-2.4); Potassium 3.9 mmol/L (3.5-5.1)
[2021-04-02 05:16] LABS: Phosphorus 3.9 mg/dl (2.5-4.9)
[2021-04-02] MEDS: PIPERACILLIN/TAZOBACTAM 4.5 GM in DEXTROSE 5% 100 ML IV SCH ×3 (05:36→21:02)
[2021-04-02] MEDS: oxyCODONE HCL IR 5 MG TAB (IMMEDIATE RELEASE) PO SCH ×3 (05:37→20:45)
[2021-04-02] MEDS: VERAPAMIL HCL 2.5 MG/ML 2 ML VIAL IV PRN (05:39)
[2021-04-02 05:49] LABS: iSTAT Allen Test Pass; iSTAT Arterial Blood Gas HCO3 39 meg/L (19-24); iSTAT Arterial Blood Gas pCO2 50 mmHg (35-46); iSTAT Arterial Blood Gas pO2 102 mmHg (80-95); iSTAT Carbon Dioxide > 40 mmol/L (24-31); iSTAT Site R Radial
--- NOTE | 2021-04-02 07:56 | XRay Report ---
SINGLE VIEW CHEST CLINICAL HISTORY: Respiratory failure FINDINGS: 2 AP, portable, upright chest radiographs are compared to study dated 04/01/2021 and correlat ed with chest CT dated 03/30/2021. An enteric tube has been removed. A tracheostomy and a right-sided P ICC line are unchanged in position. The heart appears enlarged. Multifocal airspace consolidation has not appreciably changed as compared to yesterday. Trace right-sided pneumothorax is unchanged to min imally decreased in size from yesterday. There is approximately 5 mm of pleural separation. The skele rosalia structures are osteopenic. The bony thorax is grossly intact. Cholecystectomy clips are noted in the right upper quadrant. IMPRESSION: 1. Enteric tube has been removed. The remaining lines and tubes are stable. 2. A trace right-sided pneumothorax is unchanged to minimally decreased in size from yesterday. 3. Multifocal airspace consolidation has not appreciably changed from yesterday. ACT 112: Negative or not required by law. Electronically signed by: Jesse Peguero M.D. 04/02/2021 7:55 AM
[2021-04-02] MEDS: ENOXAPARIN INJ 120 MG/0.8 ML SYR SQ SCH ×2 (08:01→19:50)
[2021-04-02] MEDS: DEXAMETHASONE IV SCH (08:01)
[2021-04-02] MEDS: PANTOprazole 40 MG in SYRINGE 0 ML IV SCH ×2 (08:01→19:17)
--- NOTE | 2021-04-02 08:21 | Critical Care Progress Note ---
Date of Service April 02, 2021 Assessment & Plan (1) ARDS (adult respiratory distress syndrome): (2) Acute hypoxemic respiratory failure: (3) Pneumonia due to COVID-19 virus: Plan: Reason Critically Ill: Acute hypoxic respiratory failure secondary to COVID-19 pneumonia PLAN: Neuro: Sedation: On Versed drip Analgesia: On tapering oxycodone Propofol discontinued 03/29/2021 secondary to elevated triglycerides. cis atracurium secondary to induced hematoma at surgical site --> Discontinued 03/29/2021 --History of chronic low back pain -Continue gabapentin --Mood disorder with PTSD -Converted Wellbutrin XR to immediate release, continue with Prozac Resp: --Pneumothorax Spontaneous Right-sided Continue to monitor -- VDRF with acute hypoxic respiratory failure Secondary to multilobar COVID-19 pneumonia Intubation 03/19 Tracheostomy: 03/23 COVID-19 PCR positive Finished azithromycin on 03/24/2021 Patient has completed 7 days of cefepime and doxycycline He has completed 10 days of dexamethasone --> s/p DEXA ARDS He did get 6 days of baricitinib which was discontinued due to acute DVTs on 03/06/2021 S/p proning. Last proning was 03/21/2021 CV: --A flutter with RVR Amiodarone started 03/29/2021, another bolus given 03/30/2021, discontinued 03/30/2021 S/p cardioversion 200 J x 3 03/30/2021 Status post loading digoxin 750mcg on 04/01/21 Cardiology on board -Hypotension Continue with vasopressor support to keep MAP greater than 65 ID: --Fever -Repeat blood cultures obtained 03/24 -2 bottle positive for cocci in chains: Gamma strep, coag negative staph -repeat cultures 03/26 no growth to date Central line and arterial line removed 03/24 -UA 03/26 unremarkable -Caspofungin added 03/29/2021, discontinued 03/31/2021 -Sputum culture Serratia--> antibiotics changed from Rocephin to meropenem on 03/30/2021--> changed to Zosyn 03/31/2021 S/p dose of cyproheptadine for possible serotonin syndrome on 03/30/2021 Renal: Monitor BUNs/creatinine GI/Nutrition: Constipation last bowel movement 03/26 Continue with Colace and senna Heme: --Acute DVTs Continue with therapeutic Lovenox --Hematoma around the trach site Active bleeding is stopped Still swelling present around the fruit harvester H&H Endocrine: ICU hyperglycemia protocol --S/p hypercalcemia Calcium 10.4 with albumin 1.8 PTH 24.1 which is low normal Primary hyperparathyroidism is also in the differential along with dehydration --Prognosis guarded --DNR --Prophylaxis VTE: Therapeutic Lovenox GI: Protonix twice daily Lines: Right arm PICC 03/29/2021, peripherals, positive Hernandez, positive trach Diet: Tube feeds Plan: In/out: Positive 333, urine output 1626 AB.5/50/102 Patient is very asynchronous on the vent when he is off sedation patient Fortunately mental status has not been coming back. Patient is already on oxycodone for pain. We will add fentanyl for breakthrough discomfort. Small right-sided pneumothorax unchanged. Patient's Mellissa complained [phone] I have personally spent 35 minutes of critical care time in the direct manag ement of this patient. This is a life/limb threatening event. This includes time spent evaluating p atient, direct bedside care, chart review, placing orders, interpretation of diagnostic studies, discussion with consultants, patient, and family members, as well as other required patient management activities. This time is exclusive of all separately billable procedures, and teaching time and separate from and in addition to any other critical care service time. Please note the above document was generated using voice recognition software. It may contain grammatical, syntax or spelling errors. Admission and Anticipated Discharge Date Admission Date: March 01, 2021 Subjective Patient seen and examined at bedside. Patient is having mild amount of bleeding coming from around the trach site as well as from the bowel. On suctioning personally today I just found thick phlegm. No active bleeding appreciated. Patient has been spiking low-grade fever. Has been off phenylephrine. On midazolam 6 at the time of examination Review of Systems Review of Systems: Unobtainable due to endotracheal tube Physical Exam Physical Exam: Constitutional: No acute distress HEENT: PERRLA, positive trach, positive indurated edema around the trach site Respiratory system: Decreased entry bilaterally, no wheeze, no rhonchi, positive crackles bilaterally CVS: S1-S2 positive, no murmurs or gallops Abdomen: Soft, nontender, nondistended, positive bowel sounds x4, obese Extremities: +2 pulses bilaterally radialis/ dorsalis pedis, no cyanosis, no edema Neuro: Sedated, breathing over the vent Psych: Unable to assess G/U: Positive Hernandez Skin: no rashes, warm and dry Lymphatic: no cervical or axillary lymphadenopathy Results & Data Results & Data ([facility]) Vital Signs (Past 12 Hours) Vital Signs Temp Pulse Resp BP Pulse Ox 04/02/21 06:26 110 H 35 H 142/106 H 04/02/21 06:00 106 H 27 H 94 04/02/21 05:27 119 H 25 H 133/81 93 04/02/21 04:26 37.2 C 134 H 25 H 102/63 04/02/21 04:02 137 H 25 H 98 04/02/21 03:27 139 H 27 H 131/81 97 04/02/21 02:26 106 H 24 149/78 H 98 04/02/21 01:27 140 H 25 H 113/72 97 04/02/21 01:00 147 H 22 97 04/02/21 00:56 121 H 22 145/70 H 04/02/21 00:26 37.8 C H 139 H 21 115/82 04/02/21 00:00 147 H 23 97 04/01/21 23:57 149 H 22 124/101 H 97 04/01/21 23:26 38.0 C H 133 H 21 140/73 04/01/21 22:38 178 H 24 93 04/01/21 22:27 167 H 35 H 142/48 H 91 04/01/21 22:00 160 H 5 L 100 04/01/21 21:57 117 H 143/86 H 95 04/01/21 20:41 150 H 31 H 94 04/01/21 20:28 145 H 124/41 L Laboratory Results 04/02/21 04:08 04/02/21 04:08 Coding Level of Care Code Critical Care 1st 30-74 mins Diagnoses ARDS (adult respiratory distress syndrome) J80 Acute hypoxemic respiratory failure J96.01 Pneumonia due to COVID-19 virus U07.1; J12.82 Time Spent (min) 35
[2021-04-02] MEDS ORDERED: FUROSEMIDE INJ 20 MG/2 ML VIAL IV ONE (08:30)
[2021-04-02] MEDS ORDERED: DIGOXIN 250 MCG in SYRINGE 9 ML IV ONE (08:45)
--- NOTE | 2021-04-02 09:24 | XRay Report ---
XR KUB/Abdomen 1 view CLINICAL HISTORY: Placement of feeding tube. TECHNIQUE: 1 view of the abdomen was obtained. Comparison: Comparison is made to abdomen one view 03/25/2021 FINDINGS: Cholecystomy clips are seen. An enteric tube tip is in the stomach. The osseous structures are grossl y unremarkable. The bowel gas pattern is nonobstructive. A moderate amount of stool is noted within t he large bowel. IMPRESSION: Nonobstructive bowel gas pattern. ACT 112: Negative or not required by law. Electronically signed by: Marcos Esposito M.D. 04/02/2021 9:23 AM
--- NOTE | 2021-04-02 09:39 | Cardiology Progress Note ---
Date of Service April 02, 2021 Assessment & Plan (1) ARDS (adult respiratory distress syndrome): (2) Hypoxia: (3) Pneumonia due to COVID-19 virus: (4) Atrial flutter: Plan: The patient was loaded with digoxin yesterday and his heart rate seem to have improved. He remains in atrial fibrillation/flutter with improved heart rates. I would continue the IV verapamil and add provided daily dose of digoxin. Use as needed metoprolol as needed for high heart rates. Admission and Anticipated Discharge Date Admission Date: March 01, 2021 Subjective The patient is status quo. No significant changes overnight. Review of Systems Review of Systems: Not obtainable Physical Exam Physical Exam: General: The patient is on a ventilator trached Head: normocephalic, no masses, lesions, tenderness or abnormalities Eyes: conjunctiva are pink and non-injected, sclera clear Neck: supple, no adenopathy, no bruits, normal jugular venous pulse, no hepatojugular reflux Chest: normal shape and normal respiratory effort Lungs: Equal breath sounds bilaterally Cardiac Exam: - irregular rate & rhythm, no murmurs gallops or rubs - normal S1, normal S2 Pulses: 2(+) throughout Abdomen: abdomen soft, non-tender, no abnormal masses and no hepatosplenomegaly Musculoskeletal: no gait disturbance, no joint inflammation, no deforming arthritis Extremities: no edema and no cyanosis Neuro: grossly normal exam Results & Data ([facility]) Vital Signs (Past 12 Hours) Vital Signs Temp Pulse Resp BP Pulse Ox 04/02/21 06:26 110 H 35 H 142/106 H 04/02/21 06:00 106 H 27 H 94 04/02/21 05:27 119 H 25 H 133/81 93 04/02/21 04:26 37.2 C 134 H 25 H 102/63 04/02/21 04:02 137 H 25 H 98 04/02/21 03:27 139 H 27 H 131/81 97 04/02/21 02:26 106 H 24 149/78 H 98 04/02/21 01:27 140 H 25 H 113/72 97 04/02/21 01:00 147 H 22 97 04/02/21 00:56 121 H 22 145/70 H 04/02/21 00:26 37.8 C H 139 H 21 115/82 04/02/21 00:00 147 H 23 97 01/06/22 23:57 149 H 22 124/101 H 97 04/01/21 23:26 38.0 C H 133 H 21 140/73 04/01/21 22:38 178 H 24 93 04/01/21 22:27 167 H 35 H 142/48 H 91 04/01/21 22:00 160 H 5 L 100 04/01/21 21:57 117 H 143/86 H 95 Laboratory Results Laboratory Results - last 24 hr 04/01/21 04/01/21 04/01/21 12:00 16:48 20:37 WBC RBC Hgb Hct MCV MCH MCHC RDW Std Deviation RDW Coeff of Natali Plt Count MPV Immature Gran % (Auto) Neut % (Auto) Lymph % (Auto) Rankin % (Auto) Eos % (Auto) Baso % (Auto) Neut # (Auto) Lymph # (Auto) Rankin # (Auto) Eos # (Auto) Baso # (Auto) Immature Gran # (Auto) Sample Site POC pH POC pCO2 POC pO2 POC HCO3 POC Total CO2 POC Base Excess POC ABG O2 Sat Rafa Test O2 Delivery Device POC O2 Rate Tidal Volume PEEP Sodium Potassium Chloride Carbon Dioxide Anion Gap BUN Creatinine Est Cr Clr Drug Dosing Est GFR ( Amer) Est GFR (Non-Af Amer) BUN/Creatinine Ratio Glucose POC Glucose POC Glucose (other) 157 H 199 H 136 H Calcium Phosphorus Magnesium 04/02/21 04/02/21 04/02/21 00:40 03:33 04:08 WBC 19.78 H RBC 2.95 L Hgb 8.5 L Hct 27.9 L MCV 94.6 MCH 28.8 MCHC 30.5 L RDW Std Deviation 49.0 H RDW Coeff of Natali 14.2 Plt Count 439 H MPV 11.0 H Immature Gran % (Auto) 0.9 Neut % (Auto) 81.6 Lymph % (Auto) 10.0 Rankin % (Auto) 7.3 Eos % (Auto) 0.1 Baso % (Auto) 0.1 Neut # (Auto) 16.14 H Lymph # (Auto) 1.98 Rankin # (Auto) 1.44 H Eos # (Auto) 0.02 Baso # (Auto) 0.02 Immature Gran # (Auto) 0.18 H Sample Site POC pH POC pCO2 POC pO2 POC HCO3 POC Total CO2 POC Base Excess POC ABG O2 Sat Rafa Test O2 Delivery Device POC O2 Rate Tidal Volume PEEP Sodium Potassium Chloride Carbon Dioxide Anion Gap BUN Creatinine Est Cr Clr Drug Dosing Est GFR ( Amer) Est GFR (Non-Af Amer) BUN/Creatinine Ratio Glucose POC Glucose 119 H POC Glucose (other) 201 H Calcium Phosphorus Magnesium 04/02/21 04/02/21 04/02/21 04:08 04:15 07:38 WBC RBC Hgb Hct MCV MCH MCHC RDW Std Deviation RDW Coeff of Natali Plt Count MPV Immature Gran % (Auto) Neut % (Auto) Lymph % (Auto) Rankin % (Auto) Eos % (Auto) Baso % (Auto) Neut # (Auto) Lymph # (Auto) Rankin # (Auto) Eos # (Auto) Baso # (Auto) Immature Gran # (Auto) Sample Site R Radial POC pH 7.50 H POC pCO2 50 H POC pO2 102 H POC HCO3 39 H POC Total CO2 > 40 H* POC Base Excess 16.0 H POC ABG O2 Sat 98.0 H Rafa Test Pass O2 Delivery Device Ventilator POC O2 Rate 20 Tidal Volume 370 PEEP 6 Sodium 141 Potassium 3.9 Chloride 102 Carbon Dioxide 36 H Anion Gap 3.0 BUN 45 H Creatinine 0.75 Est Cr Clr Drug Dosing 138.4 Est GFR ( Amer) 117.2 Est GFR (Non-Af Amer) 101.1 BUN/Creatinine Ratio 60.0 H Glucose 158 H POC Glucose 116 H POC Glucose (other) Calcium 9.0 Phosphorus 3.9 D Magnesium 2.5 H Medications Administered Current Inpatient Medications Acetaminophen (Acetaminophen Susp 325 Mg/10.15 Ml Udc) 650 mg NG Q6H PRN PRN Reason: Fever or headache Stop: 05/01/21 15:28 Bupropion HCl (Bupropion Hcl 100 Mg Tablet) 100 mg PO TID [facility] Stop: 04/22/21 13:59 Last Admin: 03/30/21 08:49 Dose: 100 mg Documented by: Docusate Sodium (Docusate Sodium Syrup 100 Mg/10 Ml Udc) 100 mg PO BID [facility] Stop: 04/24/21 09:44 Last Admin: 04/01/21 20:22 Dose: 100 mg Documented by: Enoxaparin Sodium (Enoxaparin Inj 120 Mg/0.8 Ml Syr) 111 mg SQ Q12H [facility] Stop: 04/24/21 20:59 Last Admin: 04/02/21 08:01 Dose: 111 mg Documented by: Enteral Nutritional Formula (Novasource Renal 2.0 Nelson 1000ml Bag) 1,000 ml NG UD [facility]; Protocol Stop: 04/28/21 13:44 Last Admin: 04/01/21 02:16 Dose: 1,000 ml Documented by: Fluoxetine HCl (Fluoxetine Hcl 20 Mg/5 Ml 120ml Btl) 60 mg PO QAM RICARDO Stop: 04/29/21 08:59 Last Admin: 03/30/21 08:50 Dose: 60 mg Documented by: Gabapentin (Gabapentin 250 Mg/5 Ml 470 Ml Btl) 400 mg PO TID RICARDO Stop: 04/23/21 08:59 Last Admin: 04/01/21 20:26 Dose: 400 mg Documented by: Midazolam HCl (Versed) 125 mg in 250 mls @ 13 mls/hr IV .[id number] [facility]; Protocol Stop: 04/28/21 13:14 Last Titration: 04/02/21 06:55 Dose: 6.5 mg/hr, 13 mls/hr Documented by: Pantoprazole Sodium 40 mg/ (Syringe) 10 mls @ 5 mls/min IV BID RICARDO Stop: 04/29/21 20:59 Last Admin: 04/02/21 08:01 Dose: 5 mls/min Documented by: Dexamethasone 2.5 mg/ Syringe 0.625 mls @ 1 mls/min IV DAILY RICARDO Stop: 04/03/21 09:01 Last Admin: 04/02/21 08:01 Dose: 1 mls/min Documented by: Piperacillin Sod/Tazobactam (Sod 4.5 gm/ Dextrose) 120 mls @ 30 mls/hr IV Q8H [facility]; Protocol Stop: 04/07/21 21:59 Last Admin: 04/02/21 05:36 Dose: 30 mls/hr Documented by: Phenylephrine HCl 100 mg/ (Sodium Chloride) 500 mls @ 0 mls/hr IV .Q0M [facility]; Protocol Stop: 05/01/21 12:29 Last Titration: 04/02/21 01:09 Dose: 0 mcg/kg/min, 0 mls/hr Documented by: Digoxin 250 mcg/ Syringe 10 mls @ 2 mls/min IV DAILY [facility] Stop: 05/03/21 08:59 Insulin Aspart (Insulin Aspart Per Unit) 0 units SC Q4 RICARDO Stop: 04/24/21 11:59 Last Admin: 04/02/21 08:02 Dose: Not Given Documented by: Midazolam HCl (Midazolam Bolus From Bag) 2 mg IV Q60M PRN PRN Reason: Sedation Stop: 04/28/21 13:07 Last Admin: 04/01/21 15:28 Dose: 2 mg Documented by: Miscellaneous Information (Piperacill/Tazobac Consult Active) 1 ea N/A UD PRN PRN Reason: Consult Stop: 04/30/21 10:23 Miscellaneous Information (Pharmacy Glycemic Mgmt Consult) 1 ea N/A UD PRN PRN Reason: Consult Stop: 05/01/21 09:50 Oxycodone HCl (Oxycodone Hcl Ir 5 Mg Tab (Immediate Release)) 10 mg PO Q8H [facility] Stop: 04/13/21 13:59 Last Admin: 04/02/21 05:37 Dose: 10 mg Documented by: Sennosides (Sennosides 8.8 Mg/5 Ml Udc) 17.6 mg PO QAM [facility] Stop: 04/22/21 08:59 Last Admin: 04/01/21 08:42 Dose: 17.6 mg Documented by: Sterile Water (Tube Feeding Water Flush) 30 ml OG Q4H [facility] Stop: 04/20/21 15:59 Last Admin: 04/02/21 08:02 Dose: Not Given Documented by: Verapamil HCl (Verapamil Hcl 2.5 Mg/Ml 2 Ml Vial) 5 mg IV Q4 PRN PRN Reason: Tachycardia Stop: 04/29/21 14:55 Last Admin: 04/02/21 05:39 Dose: 5 mg Documented by: Verapamil HCl (Verapamil Hcl 2.5 Mg/Ml 2 Ml Vial) 5 mg IV Q4 [facility] Stop: 04/30/21 11:59 Last Admin: 04/02/21 08:02 Dose: 5 mg Documented by:
[2021-04-02] MEDS: DOCUSATE SODIUM SYRUP 100 MG/10 ML UDC PO SCH ×2 (10:25→19:18)
[2021-04-02] MEDS: SENNOSIDES 8.8 MG/5 ML UDC PO SCH (10:25)
[2021-04-02] MEDS: GABAPENTIN 250 MG/5 ML 470 ML BTL PO SCH ×3 (10:26→19:16)
--- NOTE | 2021-04-02 11:50 | XRay Report ---
XR chest 1V portable HISTORY: 60 years-old Male hypoxia acute hypoxia COMPARISON: Chest radiograph 04/02/2021 at 6:34 AM TECHNIQUE: Portable AP view of the chest FINDINGS: Cardiac silhouette is enlarged. Tracheostomy cannula appears unchanged. A feeding tube is present wit h distal tip projected over the gastric cardia. A right-sided PICC is noted with distal tip in the ex pected location of the superior cavoatrial junction. Unchanged right-sided pneumothorax with pleural separation of 6 mm. Interstitial coarsening with multifocal airspace opacities appears unchanged. Cho lecystectomy. Bones appear grossly intact. IMPRESSION: 1. Stable lines and tubes. 2. Unchanged subcentimeter right-sided pneumothorax. 3. Extensive airspace opacities appear unchanged. ACT 112: Negative or not required by law. The above report was generated using voice recognition software. It may contain grammatical, syntax o r spelling errors. Electronically signed by: Omer Coto M.D. 04/02/2021 11:48 AM
--- NOTE | 2021-04-02 14:49 | Pharmacy Report ---
Pharmacy Glycemic Short Note 2 - Date of Service April 02, 2021 - Glycemic Short BSG Results (Last 24 hours): 04/01/21 04/01/21 04/02/21 16:48 20:37 00:40 Glucose POC Glucose POC Glucose (other) 199 H 136 H 201 H 04/02/21 04/02/21 04/02/21 03:33 04:08 07:38 Glucose 158 H POC Glucose 119 H 116 H POC Glucose (other) 04/02/21 12:02 Glucose POC Glucose 151 H POC Glucose (other) OUTPATIENT ANTIDIABETIC REGIMEN: * N/A * A1c = ? ASSESSMENT: 04/02 * BSGs reasonably well controlled over last 24 hrs. Phenylephrine has been weaned off. Novasource Renal tube feeds were held this am, but have been resumed and are currently running at 35cc/hr. Dexamethasone 2.5mg IV Q AM continues, however no further doses are ordered after tomorrow's dose. Will continue w/ current insulin doses another 24 hrs. 04/01 * Patient currently admitted to ICU for multiple medical issues. He was initially admitted for resp failure due to COVID19 viral pna. He remains vent dependent s/p trach. He is receiving abx for serratia VAP. Dexamethasone IV continues however the dose is being tapered (he received a lesser dose today vs yesterday). A flutter has led to initiation of verapamil IV along w/ pheny.ephrine for pressor support. He has been receiving Novasource Renal tube feeds at 20cc/hr continuous. * BSGs checked via iSTAT tend to be much higher than those checked with Accuchek. iSTAT is preferred while receiving pressors. * Will adjust Novolog regimen to allow for greater doses to cover carbs in continous tube feeds. Will change base solution of pressors to NS to minimize IV dextrose. Will give a single dose of Lantus x 1 today. PLAN FOR INPATIENT GLYCEMIC CONTROL: * Basal insulin * Lantus 10 units x 1 * Bolus insulin * NovoLog per scale Q 4 hrs * Goal Range: Low 110 mg/dL - High 140 mg/dL * Correction Factor: 20 mg/dL/unit * Nutritional / Prandial insulin per carb ratio of 1 unit per 7 grams CHO consumed PLAN FOR DISCHARGE: * to be determined
[2021-04-02] MEDS ORDERED: LANTUS PER UNIT CHARGE SQ ONE (16:00)
[2021-04-02] MEDS ORDERED: STAT IV Infusion **Titration per Protocol STA (17:36)
[2021-04-02] MEDS: DEXMEDETOMIDINE HCL 200 MCG in SODIUM CHLORIDE 0.9% 48 ML IV SCH ×2 (18:17→21:01)
--- NOTE | 2021-04-02 20:07 | XRay Report ---
XR chest 1V portable HISTORY: Hypoxia COMPARISON: Chest 04/02/2021. FINDINGS: Lines and tubes remain in good position. Small right pneumothorax remain stable in size wit h a maximal pleural gap of 6 mm. The heart remains enlarged. Patchy bilateral airspace opacities and interstitial thickening are not significantly changed. No pleural effusions. Trace right neck base diaz bcutaneous emphysema is again noted. IMPRESSION: 1. Satisfactory support line placement. 2. Unchanged small right pneumothorax. 3. No change in the bilateral multifocal airspace opacities. This favors a viral pneumonia. ACT 112: Negative or not required by law. Electronically signed by: Sree Natarajan M.D. 04/02/2021 8:06 PM
[2021-04-02] MEDS: fentaNYL citrate 100 MCG/2 ML VIAL IV PRN ×2 (20:20→23:36)
[2021-04-02] MEDS: NOVASOURCE RENAL 2.0 CAL 1000ML BAG NG SCH (20:46)
--- NOTE | 2021-04-02 21:02 | Hospitalist Progress Note ---
Date of Service April 02, 2021 delayed entry date of service noted above Assessment & Plan (1) Acute hypoxemic respiratory failure: Plan: per Dr. Tuttle's notes with addendum: Acute respiratory failure with hypoxia Multifocal COVID pneumonia COVID Screen: Positive 02/28/21 CTA:No CTA evidence for pulmonary embolus. Extensive groundglass opacities are present throughout both lungs characteristic of a viral type pneumonitis Completed dexamethasone 10 days course Got baricitinib given for 6 days but discontinued due to acute DVTs (03/06/21) Had completed abx with cefepime and doxycycline for 7 days Remdesivir discontinued by pulmonary service Was on HFNC and with worsening resp status, was put on NIV and subsequently intubated on 03/19/21 Tracheostomy 03/23, on MV Vent and sedation management per labor relations director, andrew on propofol. Off on Nimbex today. Concern for developing fibrosis Finished azithro 03/24 and on dexamethasone ARDS protocol WBC fluctuating. Pt on Dexa ARDS protocol. Patient is having low-grade fever, 03/24 blood culture likely contaminant; 03/26 Bl Cx: NG so far. On Rocephin 03/26 --> changed to meropenem 03/30 (d/t sputum Cx growing GNB), On Caspofungin 03/29/21, management per ICU. 04/02/21 sedated on versed, on trach sputum culture: (+) Serratia on Zosyn IV on Dexamethasone, Lasix PRN CT head ordered Deep venous thrombosis posterior tibial and peroneal veins In the setting of COVID-19 infection & baricitinib use Patient reports family history of blood clots Lovenox BID #. Aflutter w/ RVR bout of aflutter w/ rvr, cardioverted twice, bolused with amio twice, on amio drip. cardiology consulted 04/02/21 on Digoxin on Lovenox Mild indirect bilirubinemia, elevated alk phos Resolved Liver ultrasound:The liver is normal in size and echogenicity. Incidental note is made of a small cyst within the liver. Hypertension Antihypertensive on hold while on sedation Chronic back pain Patient plans to follow up with Neurosurgery as outpatient Mood disorder/PTSD DVT Px: Lovenox held, SCDs while off of Anticoagulation Prognosis guarded. Full code Admission and Anticipated Discharge Date Admission Date: March 01, 2021 Subjective ff up for acute hypoxic respiratory failure, covid 19 pneumonia, etc sedated, intubated drowsy, occasionally opens eyes does not follow commands not in distress, no signs of pain no other issues per gift shop assistant of Systems Review of Systems: Unobtainable due to endotracheal tube and Unobtainable due to reduced consciousness Physical Exam Physical Exam: General- sedated, breathing no effort or accessory muscle use Eyes- anicteric Neck- no JVD Lungs-(+) rhonchi BL anteriorly Heart- mild tachy, irregularly irregular rhythm; no murmurs Abdomen- normal bowel sounds, nondistended, soft, nontender Extremities- mild extremity edema Neuro- sedated Skin- warm & dry Results & Data Results & Data ([facility]) Vital Signs (Past 12 Hours) Vital Signs Pulse Resp BP Pulse Ox 04/02/21 17:26 147 H 125/65 96 04/02/21 17:00 119 H 95 04/02/21 16:27 115 H 116/84 95 04/02/21 16:00 106 H 94 04/02/21 15:56 104 H 108/60 94 04/02/21 15:27 151 H 113/89 95 04/02/21 15:24 30 H 04/02/21 15:00 149 H 97 04/02/21 14:57 143 H 104/77 96 04/02/21 14:27 158 H 109/59 L 04/02/21 14:00 145 H 97 04/02/21 13:57 113 H 127/73 98 04/02/21 13:26 118 H 122/78 96 04/02/21 13:00 132 H 0 L 95 04/02/21 12:56 154 H 107/70 95 04/02/21 12:26 153 H 91/71 L 99 04/02/21 12:00 167 H 99 04/02/21 11:57 124 H 102/44 L 04/02/21 11:26 154 H 111/71 83 L 04/02/21 11:00 168 H 28 H 93 04/02/21 10:56 139 H 19 120/78 93 04/02/21 10:35 140 H 99/75 L 04/02/21 10:26 131 H 25 H 179/154 H 90 04/02/21 10:25 125 H 04/02/21 10:00 125 H 90 04/02/21 09:27 130 H 19 119/81 87 L all noted and reviewed including below
[2021-04-03] MEDS: DEXMEDETOMIDINE HCL 200 MCG in SODIUM CHLORIDE 0.9% 48 ML IV SCH ×5 (01:41→12:22)
[2021-04-03] MEDS: fentaNYL citrate 100 MCG/2 ML VIAL IV PRN ×8 (01:42→23:47)
[2021-04-03] MEDS: INSULIN ASPART PER UNIT SC SCH ×5 (03:35→21:06)
[2021-04-03] MEDS: TUBE FEEDING WATER FLUSH OG SCH ×6 (03:37→23:47)
[2021-04-03] MEDS: VERAPAMIL HCL 2.5 MG/ML 2 ML VIAL IV SCH ×6 (03:37→23:48)
[2021-04-03 04:59] LABS: iSTAT Allen Test Pass; iSTAT Arterial Blood Gas HCO3 41 meg/L (19-24); iSTAT Arterial Blood Gas pCO2 61 mmHg (35-46); iSTAT Arterial Blood Gas pH 7.43 (7.35-7.45); iSTAT Arterial Blood Gas pO2 109 mmHg (80-95); iSTAT Carbon Dioxide > 40 mmol/L (24-31); iSTAT FiO2 50 %; iSTAT Site R Radial
[2021-04-03] MEDS: PIPERACILLIN/TAZOBACTAM 4.5 GM in DEXTROSE 5% 100 ML IV SCH ×3 (05:53→21:07)
[2021-04-03 05:54] LABS: Basophils # (auto) 0.04 K/uL (0-0.2); Basophils % (auto) 0.2 %; Eosinophils # (auto) 0.04 K/uL (0-0.5); Eosinophils % (auto) 0.2 %; Hematocrit (blood only) 27.8 % (42-52); Hemoglobin 8.4 g/dL (14.0-18.0); Immature Granulocytes # (auto) 0.34 K/uL (0.00-0.02); Immature Granulocytes % (auto) 1.4 %; Lymphocytes # (auto) 2.18 K/uL (1.2-3.4); Lymphocytes % (auto) 9.2 %; Mean Corpuscular Hemoglobin 28.7 pg (25-34); Mean Corpuscular Hgb Conc 30.2 g/dL (32-36); Mean Corpuscular Volume 94.9 fL (80-100); Mean Platelet Volume 10.6 fL (7.4-10.4); Monocytes # (auto) 1.75 K/uL (0.11-0.59); Monocytes % (auto) 7.4 %; Neutrophils # (auto) 19.38 K/uL (1.4-6.5); Neutrophils % (auto) 81.6 %; Nucleated RBC # (auto) 0.06 K/uL (0-0); Nucleated RBC % (auto) 0.3 %; Platelet Count 463 K/uL (130-400); RDW Coefficient of Variation 14.3 % (11.5-14.5); RDW Standard Deviation 49.4 fL (36.4-46.3); Red Blood Count 2.93 M/uL (4.7-6.1); White Blood Count 23.73 K/uL (4.8-10.8)
[2021-04-03 06:41] LABS: Calcium 8.8 mg/dl (8.5-10.1); Creatinine Clr Calc Pharmacy 125.1 ml/min; Est GFR (African American) 112.4 ml/min; Magnesium 2.5 mg/dl (1.8-2.4); Phosphorus 4.6 mg/dl (2.5-4.9); Potassium 4.1 mmol/L (3.5-5.1)
[2021-04-03] MEDS: DEXAMETHASONE IV SCH (08:12)
[2021-04-03] MEDS: PANTOprazole 40 MG in SYRINGE 0 ML IV SCH ×2 (08:13→20:20)
[2021-04-03] MEDS: oxyCODONE HCL IR 5 MG TAB (IMMEDIATE RELEASE) PO SCH ×2 (08:30→20:18)
[2021-04-03] MEDS ORDERED: DIGOXIN 250 MCG in SYRINGE 9 ML IV SCH (09:00)
[2021-04-03] MEDS ORDERED: DEXAMETHASONE IV SCH (09:00)
--- NOTE | 2021-04-03 09:03 | CT Scan Report ---
CT head/brain wo con CLINICAL HISTORY: r/o stroke/bleed Technique: Contiguous axial CT images of the head were acquired from the base of the skull to the fiona farrukh without intravenous contrast administration. Images were viewed in brain, subdural and [facility]. Automated dose lowering techniques and/or adjustment according to patient size were utilized for this exam. Comparison: Comparison is made to CT head 04/28/2019 Findings: The ventricles, basal cisterns, and cerebral sulci are normal. There is no acute intracranial hemorrh age or evidence of acute territorial infarction. Neither mass effect, shift of the midline structures , nor abnormal extra-axial fluid collections are shown. Imaged portions of the paranasal sinuses and mastoid air cells are clear. The orbits appear normal. There are no acute fractures of the calvaria or scalp swelling. Impression: No acute intracranial hemorrhage, no evidence of acute territorial infarction or other acute intracra nial disease process. ACT 112: Negative or not required by law. Electronically signed by: Marcos Esposito M.D. 04/03/2021 9:01 AM
[2021-04-03] MEDS: SENNOSIDES 8.8 MG/5 ML UDC PO SCH (10:09)
[2021-04-03] MEDS: GABAPENTIN 250 MG/5 ML 470 ML BTL PO SCH ×3 (10:10→20:18)
[2021-04-03] MEDS: DOCUSATE SODIUM SYRUP 100 MG/10 ML UDC PO SCH ×2 (10:11→20:20)
--- NOTE | 2021-04-03 10:29 | Cardiology Progress Note ---
Date of Service April 03, 2021 Assessment & Plan (1) Atrial fibrillation: (2) Atrial flutter: (3) ARDS (adult respiratory distress syndrome): (4) Hypoxia: (5) Pneumonia due to COVID-19 virus: Plan: Heart rate improved with IV verapamil and digoxin loading. 2 episodes of bradycardia this morning with associated 2.8-second pause. Recommend holding digoxin. Continue IV verapamil at this time. Monitor telemetry. Continue anticoagulation as previously ordered with enoxaparin. Admission and Anticipated Discharge Date Admission Date: March 01, 2021 Subjective Patient seen and examined at the bedside. Sedated on ventilator with tracheostomy. Telemetry reveals atrial fibrillation overnight with improved rate control. There were 2, 2.8-second pauses recorded this morning. Currently treated with intravenous verapamil plus digoxin. Review of Systems Review of Systems: Unobtainable due to reduced consciousness (Sedated) Physical Exam Constitutional: + ill appearing and + obese Respiratory: normal respiratory effort; no retractions Auscultation: no crackles, no rales, no rhonchi and no wheezes Cardiovascular: Rate/Rhythm: + irregularly irregular Heart Sounds: normal S1 and normal S2; no murmur Vessels: no JVD Gastrointestinal (Abdomen): Inspection/Auscultation: normal bowel sounds; abdomen not distended Percussion/Palpation: abdomen soft; abdomen nontender, no guarding and abdomen not rigid Results & Data ([facility]) Vital Signs (Past 12 Hours) Vital Signs Temp Pulse Resp BP Pulse Ox 04/03/21 08:12 110 H 04/03/21 07:10 86 31 H 95 04/03/21 06:27 109 H 25 H 99/54 L 96 04/03/21 05:26 77 29 H 135/77 93 04/03/21 05:00 90 39 H 92 04/03/21 04:27 37.2 C 89 39 H 108/58 L 95 04/03/21 03:02 79 27 H 95 04/03/21 02:27 79 40 H 124/59 L 97 04/03/21 01:27 99 H 23 94/45 L 93 04/03/21 00:27 37.2 C 91 H 24 106/61 96 04/02/21 23:27 91 H 44 H 114/59 L 96 04/02/21 23:10 104 H 28 H 98 04/02/21 22:27 108 H 24 91/61 L 96
[2021-04-03] MEDS ORDERED: LANTUS PER UNIT CHARGE SQ ONE (11:00)
--- NOTE | 2021-04-03 12:12 | XRay Report ---
XR chest 1V portable CLINICAL HISTORY: Hypoxia TECHNIQUE: Single frontal radiograph of the chest was obtained. Comparison: Comparison is made to chest one view 04/02/2021 FINDINGS: Lines and tubes are stable. The cardiomediastinal silhouette is normal. Multifocal airspace opacities are seen. Small right pneumothorax is similar in size allowing for differences in positioning. IMPRESSION: Stable multifocal airspace opacities and small right pneumothorax. ACT 112: Negative or not required by law. Electronically signed by: Marcos Esposito M.D. 04/03/2021 12:11 PM
[2021-04-03] MEDS: ENOXAPARIN INJ 120 MG/0.8 ML SYR SQ SCH ×2 (12:21→20:19)
[2021-04-03] MEDS: DEXMEDETOMIDINE HCL 400 MCG in 0.9 % SODIUM CHLORIDE 96 ML IV SCH ×3 (12:22→21:08)
--- NOTE | 2021-04-03 12:44 | Critical Care Progress Note ---
Date of Service April 03, 2021 Assessment & Plan (1) ARDS (adult respiratory distress syndrome): (2) Acute hypoxemic respiratory failure: (3) Pneumonia due to COVID-19 virus: Plan: Reason Critically Ill: Acute hypoxic respiratory failure secondary to COVID-19 pneumonia PLAN: Neuro: Sedation: Versed drip stopped 04/02/2021, on Precedex drip since Analgesia: On tapering oxycodone Propofol discontinued 03/29/2021 secondary to elevated triglycerides. cis atracurium secondary to induced hematoma at surgical site --> Discontinued 03/29/2021 CT head 04/03/2021: - negative for any acute abnormalities --History of chronic low back pain -Continue gabapentin --Mood disorder with PTSD -Converted Wellbutrin XR to immediate release, continue with Prozac Resp: --Pneumothorax Spontaneous Right-sided Continue to monitor -- VDRF with acute hypoxic respiratory failure Secondary to multilobar COVID-19 pneumonia Intubation 03/19 Tracheostomy: 03/23 COVID-19 PCR positive Finished azithromycin on 03/24/2021 Patient has completed 7 days of cefepime and doxycycline He has completed 10 days of dexamethasone --> s/p DEXA ARDS He did get 6 days of baricitinib which was discontinued due to acute DVTs on 03/06/2021 S/p proning. Last proning was 03/21/2021 CV: --A flutter with RVR Amiodarone started 03/29/2021, another bolus given 03/30/2021, discontinued 03/30/2021 S/p cardioversion 200 J x 3 03/30/2021 Status post loading digoxin 750mcg on 04/01/21, followed by 250 MCG on a daily basis Digoxin level 0.9 on 04/03/2021 Cardiology on board ID: --S/p fever -Repeat blood cultures obtained 03/24 -2 bottle positive for cocci in chains: Gamma strep, coag negative staph -repeat cultures 03/26 no growth to date Central line and arterial line removed 03/24 -UA 03/26 unremarkable -Caspofungin added 03/29/2021, discontinued 03/31/2021 -Sputum culture Serratia--> antibiotics changed from Rocephin to meropenem on 03/30/2021--> changed to Zosyn 03/31/2021 S/p dose of cyproheptadine for possible serotonin syndrome on 03/30/2021 Renal: Monitor BUNs/creatinine GI/Nutrition: Constipation last bowel movement 03/26 Continue with Colace and senna Heme: --Acute DVTs Continue with therapeutic Lovenox --Hematoma around the trach site Active bleeding is stopped Still swelling present around the property site manager H&H Endocrine: ICU hyperglycemia protocol --S/p hypercalcemia Calcium 10.4 with albumin 1.8 PTH 24.1 which is low normal Primary hyperparathyroidism is also in the differential along with dehydration --Prognosis guarded --DNR --Prophylaxis VTE: Therapeutic Lovenox GI: Protonix twice daily Lines: Right arm PICC 03/29/2021, peripherals, positive Hernandez, positive trach 03/23/2021 Diet: Tube feeds Plan: In/out: Positive to 60, urine output 1877 AB.43/61/109 on PEEP of six, 50% Chest x-ray does not show any significant change with respect to alveolar opacities. Right-sided pneumothorax seems to be decreased in size Patient seems to be more alert today but unfortunately still not following commands. Oxycodone has been decreased to 10 mg every 12 Getting as needed fentanyl 50 MCG every 3 hours I had spoken with patient's as well as patient's daughter in depth on 04/02/2021 and discussed the current condition and prognosis. All questions inquiries of family were answered in depth. Patient's Mellissa haas [phone] I have personally spent 36 minutes of critical care time in the direct management of this patient. This is a life/limb threatening event. This includes time spent evaluating patient, direct bedside care, chart review, placing orders, interpretation of diagnostic studies, discussion with consultants, patient, and family members, as well as other required patient management activities. This time is exclusive of all separately billable procedures, and teaching time and separate from and in addition to any other critical care service time. Please note the above document was generated using voice recognition software. It may contain grammatical, syntax or spelling errors. Admission and Anticipated Discharge Date Admission Date: March 01, 2021 Subjective Patient seen and examined at bedside. No acute distress. Overnight patient was having issues with getting volumes of the trach. It was repositioned without taking the sutures out and he started to get good volumes. He was appointed to [facility] at the time of examination. Midazolam drip has been stopped as of 04/02/2021 He is more alert today. Doesn't follow commands but has his eyes open. Review of Systems Review of Systems: Other Physical Exam Physical Exam: Constitutional: No acute distress HEENT: PERRLA, positive trach, positive indurated edema around the trach site Respiratory system: Decreased entry bilaterally, no wheeze, no rhonchi, positive crackles bilaterally CVS: S1-S2 positive, no murmurs or gallops Abdomen: Soft, nontender, nondistended, positive bowel sounds x4, obese Extremities: +2 pulses bilaterally radialis/ dorsalis pedis, no cyanosis, +2 pitting edema bilateral lower extremity Neuro: Awake and alert, doesn't follow commands Psych: Unable to assess G/U: Positive Hernandez Skin: no rashes, warm and dry Lymphatic: no cervical or axillary lymphadenopathy Results & Data Results & Data ([facility]) Vital Signs (Past 12 Hours) Vital Signs Temp Pulse Resp BP Pulse Ox 04/03/21 08:12 110 H 04/03/21 07:10 86 31 H 95 04/03/21 06:27 109 H 25 H 99/54 L 96 04/03/21 05:26 77 29 H 135/77 93 04/03/21 05:00 90 39 H 92 04/03/21 04:27 37.2 C 89 39 H 108/58 L 95 04/03/21 03:02 79 27 H 95 04/03/21 02:27 79 40 H 124/59 L 97 04/03/21 01:27 99 H 23 94/45 L 93 Laboratory Results 04/03/21 05:35 04/03/21 05:35 Coding Level of Care Code Critical Care 1st 30-74 mins Diagnoses ARDS (adult respiratory distress syndrome) J80 Acute hypoxemic respiratory failure J96.01 Pneumonia due to COVID-19 virus U07.1; J12.82 Time Spent (min) 36
--- NOTE | 2021-04-03 15:36 | Hospitalist Progress Note ---
Date of Service April 03, 2021 delayed entry date of service noted above completed 04/04/21 Assessment & Plan (1) Acute hypoxemic respiratory failure: Plan: per Dr. Tuttle's notes with addendum: Acute respiratory failure with hypoxia Multifocal COVID pneumonia COVID Screen: Positive 02/28/21 CTA:No CTA evidence for pulmonary embolus. Extensive groundglass opacities are present throughout both lungs characteristic of a viral type pneumonitis Completed dexamethasone 10 days course Got baricitinib given for 6 days but discontinued due to acute DVTs (03/06/21) Had completed abx with cefepime and doxycycline for 7 days Remdesivir discontinued by pulmonary service Was on HFNC and with worsening resp status, was put on NIV and subsequently intubated on 03/19/21 Tracheostomy 03/23, on MV Vent and sedation management per hedis analyst, currenlty on propofol. Off on Nimbex today. Concern for developing fibrosis Finished azithro 03/24 and on dexamethasone ARDS protocol WBC fluctuating. Pt on Dexa ARDS protocol. Patient is having low-grade fever, 03/24 blood culture likely contaminant; 03/26 Bl Cx: NG so far. On Rocephin 03/26 --> changed to meropenem 03/30 (d/t sputum Cx growing GNB), On Caspofungin 03/29/21, management per ICU. 04/03/21 sedated on precedex, on trach sputum culture: (+) Serratia on Zosyn IV on Dexamethasone, Lasix PRN CT head ordered: no acute process Deep venous thrombosis posterior tibial and peroneal veins In the setting of COVID-19 infection & baricitinib use Patient reports family history of blood clots Lovenox BID #. Aflutter w/ RVR bout of aflutter w/ rvr, cardioverted twice, bolused with amio twice, on amio drip. cardiology consulted 04/03/21 Digoxin held, on Verapamil on Lovenox Mild indirect bilirubinemia, elevated alk phos Resolved Liver ultrasound:The liver is normal in size and echogenicity. Incidental note is made of a small cyst within the liver. Hypertension Antihypertensive on hold while on sedation Chronic back pain Patient plans to follow up with Neurosurgery as outpatient Mood disorder/PTSD DVT Px: Lovenox held, SCDs while off of Anticoagulation Prognosis guarded. Full code Admission and Anticipated Discharge Date Admission Date: March 01, 2021 Subjective ff up for acute hypoxic respiratory failure, etc on Precedex, trach with ventilator patient mostly sleeping not in distress, no signs of pain no other issues per tester printed circuit boards of Systems Review of Systems: all noted and negative except for above Physical Exam Physical Exam: General- on precedex, breathing no effort or accessory muscle use Eyes- anicteric Neck- no JVD Lungs- (+) mild crackles anteriorly, BL Heart- normal rate, regular rhythm; no murmurs Abdomen- normal bowel sounds, nondistended, soft, nontender Extremities- no pretibial edema, no calf tenderness Neuro- alert, oriented x 3; no gross focal neurologic deficits Skin- warm & dry Results & Data Results & Data ([facility]) Vital Signs (Past 12 Hours) Vital Signs Temp Pulse Resp BP Pulse Ox 04/03/21 15:00 90 40 H 92 04/03/21 14:47 66 38 H 140/93 91 04/03/21 14:30 84 33 H 91 04/03/21 14:17 81 29 H 104/65 93 04/03/21 14:00 82 31 H 91 04/03/21 13:47 69 40 H 105/59 L 95 04/03/21 13:30 86 20 95 04/03/21 13:16 66 31 H 113/65 95 04/03/21 13:00 80 23 96 04/03/21 12:47 62 21 92/51 L 04/03/21 12:30 85 33 H 97 04/03/21 12:17 67 22 100/54 L 97 04/03/21 12:00 37 C 82 23 97 04/03/21 11:30 67 40 H 95 04/03/21 11:16 78 39 H 100/56 L 96 04/03/21 11:15 91 H 34 H 98 04/03/21 11:00 75 22 99 04/03/21 10:46 67 21 106/66 98 04/03/21 10:30 68 21 98 04/03/21 10:16 76 21 100/63 99 04/03/21 10:00 84 24 98 04/03/21 09:30 85 29 H 96 04/03/21 09:01 89 35 H 90 04/03/21 08:30 82 38 H 92 04/03/21 08:28 72 34 H 122/64 92 04/03/21 08:12 110 H 04/03/21 08:00 36.9 C 125 H 45 H 90 04/03/21 07:58 95 H 12 122/64 90 04/03/21 07:30 95 H 41 H 94 04/03/21 07:28 94 H 45 H 162/92 H 93 04/03/21 07:10 86 31 H 95 04/03/21 07:00 110 H 53 H 96 04/03/21 06:56 89 22 87/69 L 95 04/03/21 06:30 98 H 30 H 96 04/03/21 06:27 109 H 25 H 99/54 L 96 04/03/21 05:26 77 29 H 135/77 93 04/03/21 05:00 90 39 H 92 04/03/21 04:27 37.2 C 89 39 H 108/58 L 95
--- NOTE | 2021-04-03 15:42 | XRay Report ---
XR KUB/Abdomen 1 view CLINICAL HISTORY: feeding tube placement TECHNIQUE: 1 view of the abdomen was obtained. Comparison: Comparison is made to abdomen one view 04/02/2021 FINDINGS: Bilateral airspace opacities are seen in the lungs. Enteric tube tip lies within the stomach. The oss eous structures are grossly unremarkable. The bowel gas pattern is nonobstructive. A moderate amount of stool is noted within the large bowel. IMPRESSION: Satisfactory position of enteric tube. ACT 112: Negative or not required by law. Electronically signed by: Marcos Esposito M.D. 04/03/2021 3:41 PM
[2021-04-04] MEDS: INSULIN ASPART PER UNIT SC SCH ×7 (00:01→23:23)
[2021-04-04] MEDS: DEXMEDETOMIDINE HCL 400 MCG in 0.9 % SODIUM CHLORIDE 96 ML IV SCH ×6 (01:38→23:17)
[2021-04-04] MEDS: fentaNYL citrate 100 MCG/2 ML VIAL IV PRN ×5 (01:38→23:23)
[2021-04-04] MEDS: VERAPAMIL HCL 2.5 MG/ML 2 ML VIAL IV SCH ×4 (03:15→22:08)
[2021-04-04] MEDS: TUBE FEEDING WATER FLUSH OG SCH ×6 (03:17→23:18)
[2021-04-04] MEDS: PIPERACILLIN/TAZOBACTAM 4.5 GM in DEXTROSE 5% 100 ML IV SCH ×3 (06:15→22:09)
[2021-04-04 06:41] LABS: BUN Creatinine Ratio 67.4 (10-20); Calcium 8.9 mg/dl (8.5-10.1); Creatinine Clr Calc Pharmacy 136.6 ml/min; Est GFR (African American) 116.6 ml/min; Est GFR (Non-African American) 100.6 ml/min; Magnesium 2.6 mg/dl (1.8-2.4); Potassium 3.3 mmol/L (3.5-5.1)
[2021-04-04] MEDS: ENOXAPARIN INJ 120 MG/0.8 ML SYR SQ SCH ×2 (07:42→20:21)
[2021-04-04] MEDS: DOCUSATE SODIUM SYRUP 100 MG/10 ML UDC PO SCH ×2 (07:42→20:21)
[2021-04-04] MEDS: SENNOSIDES 8.8 MG/5 ML UDC PO SCH (07:42)
[2021-04-04] MEDS: PANTOprazole 40 MG in SYRINGE 0 ML IV SCH ×2 (07:43→20:21)
[2021-04-04] MEDS: oxyCODONE HCL IR 5 MG TAB (IMMEDIATE RELEASE) PO SCH ×2 (07:50→20:20)
[2021-04-04] MEDS: GABAPENTIN 250 MG/5 ML 470 ML BTL PO SCH ×3 (07:50→20:21)
[2021-04-04] MEDS: NOVASOURCE RENAL 2.0 CAL 1000ML BAG NG SCH (08:13)
[2021-04-04 08:36] LABS: Basophils # (auto) 0.02 K/uL (0-0.2); Basophils % (auto) 0.1 %; Eosinophils # (auto) 0.14 K/uL (0-0.5); Eosinophils % (auto) 0.8 %; Hematocrit (blood only) 26.1 % (42-52); Immature Granulocytes # (auto) 0.25 K/uL (0.00-0.02); Immature Granulocytes % (auto) 1.4 %; Lymphocytes # (auto) 2.09 K/uL (1.2-3.4); Lymphocytes % (auto) 11.6 %; Mean Corpuscular Hemoglobin 28.7 pg (25-34); Mean Corpuscular Hgb Conc 30.7 g/dL (32-36); Mean Corpuscular Volume 93.5 fL (80-100); Mean Platelet Volume 10.1 fL (7.4-10.4); Monocytes % (auto) 7.2 %; Neutrophils # (auto) 14.14 K/uL (1.4-6.5); Neutrophils % (auto) 78.9 %; Nucleated RBC # (auto) 0.02 K/uL (0-0); Nucleated RBC % (auto) 0.1 %; Platelet Count 536 K/uL (130-400); RDW Coefficient of Variation 13.9 % (11.5-14.5); RDW Standard Deviation 47.5 fL (36.4-46.3); Red Blood Count 2.79 M/uL (4.7-6.1); White Blood Count 17.94 K/uL (4.8-10.8)
[2021-04-04] MEDS: POTASSIUM CHLORIDE / WTR 20 MEQ/100 ML PLCT IV SCH ×2 (09:46→11:21)
[2021-04-04] MEDS ORDERED: VERAPAMIL HCL 2.5 MG/ML 2 ML VIAL IV SCH (12:00)
--- NOTE | 2021-04-04 13:43 | Critical Care Progress Note ---
Date of Service April 04, 2021 Assessment & Plan (1) ARDS (adult respiratory distress syndrome): (2) Acute hypoxemic respiratory failure: (3) Pneumonia due to COVID-19 virus: Plan: Reason Critically Ill: Acute hypoxic respiratory failure secondary to COVID-19 pneumonia PLAN: Neuro: Sedation: Versed drip stopped 04/02/2021, on Precedex drip since Analgesia: On tapering oxycodone Propofol discontinued 03/29/2021 secondary to elevated triglycerides. cis atracurium secondary to induced hematoma at surgical site --> Discontinued 03/29/2021 CT head 04/03/2021: - negative for any acute abnormalities --History of chronic low back pain -Continue gabapentin --Mood disorder with PTSD -Converted Wellbutrin XR to immediate release, continue with Prozac Resp: --Pneumothorax Spontaneous Right-sided Continue to monitor -- VDRF with acute hypoxic respiratory failure Secondary to multilobar COVID-19 pneumonia Intubation 03/19 Tracheostomy: 03/23 COVID-19 PCR positive Finished azithromycin on 03/24/2021 Patient has completed 7 days of cefepime and doxycycline He has completed 10 days of dexamethasone --> s/p DEXA ARDS He did get 6 days of baricitinib which was discontinued due to acute DVTs on 03/06/2021 S/p proning. Last proning was 03/21/2021 CV: --A flutter with RVR Amiodarone started 03/29/2021, another bolus given 03/30/2021, discontinued 03/30/2021 S/p cardioversion 200 J x 3 03/30/2021 Status post loading digoxin 750mcg on 04/01/21, followed by 250 MCG on a daily basis Digoxin level 0.9 on 04/03/2021. 0.8 on 04/04/2021 Cardiology on board ID: --S/p fever -Repeat blood cultures obtained 03/24 -2 bottle positive for cocci in chains: Gamma strep, coag negative staph -repeat cultures 03/26 no growth to date Central line and arterial line removed 03/24 -UA 03/26 unremarkable -Caspofungin added 03/29/2021, discontinued 03/31/2021 -Sputum culture Serratia--> antibiotics changed from Rocephin to meropenem on 03/30/2021--> changed to Zosyn 03/31/2021 S/p dose of cyproheptadine for possible serotonin syndrome on 03/30/2021 Renal: Monitor BUNs/creatinine GI/Nutrition: Constipation last bowel movement 03/26 Continue with Colace and senna Heme: --Acute DVTs Continue with therapeutic Lovenox --Hematoma around the trach site Active bleeding is stopped 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 Patient's urine output is decreasing. I will give a dose of 20 mg of Lasix For the bradycardic episode I will do decrease the frequency of verapamil to every 8 hours. Digoxin is also on hold. Digoxin level today was 0.8 Hypokalemia being replaced Patient is still unable to tolerate pressure support. Continue with SIMV Patient's Mellissa haas [phone] I have personally spent 35 minutes of critical care time in the direct management of this patient. This is a life/limb threatening event. This includes time spent evaluating patient, direct bedside care, chart review, placing orders, interpretation of diagnostic studies, discussion with consultants, patient, and family members, as well as other required patient management activities. This time is exclusive of all separately billable procedures, and teaching time and separate from and in addition to any other critical care service time. Please note the above document was generated using voice recognition software. It may contain grammatical, syntax or spelling errors. Admission and Anticipated Discharge Date Admission Date: March 01, 2021 Subjective Patient seen and examined at bedside. No acute distress. Patient did have episode of bradycardia overnight and his verapamil was not given. At the time of examination he is awake and alert. He tries to answer some questions. Denies any headache, no chest pain Review of Systems Review of Systems: All systems reviewed & are unremarkable except as noted in Subjective Physical Exam Physical Exam: Constitutional: No acute distress HEENT: PERRLA, positive trach, positive indurated edema around the trach site Respiratory system: Decreased entry bilaterally, no wheeze, no rhonchi, positive crackles bilaterally CVS: S1-S2 positive, no murmurs or gallops Abdomen: Soft, nontender, nondistended, positive bowel sounds x4, obese Extremities: +2 pulses bilaterally radialis/ dorsalis pedis, no cyanosis, +2 pitting edema bilateral lower extremity Neuro: Awake and alert, doesn't follow commands Psych: Unable to assess G/U: Positive Hernandez Skin: no rashes, warm and dry Lymphatic: no cervical or axillary lymphadenopathy Results & Data Results & Data ([facility]) Vital Signs (Past 12 Hours) Vital Signs Temp Pulse Resp BP Pulse Ox 04/04/21 10:10 79 31 H 97 04/04/21 08:00 75 34 H 93 04/04/21 05:45 37.1 C 79 29 H 106/59 L 98 04/04/21 04:15 36.9 C 68 43 H 105/63 96 04/04/21 03:15 36.8 C 65 29 H 85/61 L 99 04/04/21 03:00 36.8 C 62 35 H 85/61 L 97 04/04/21 02:45 36.9 C 69 21 90/59 L 93 04/04/21 02:30 36.9 C 67 31 H 97 04/04/21 02:14 36.9 C 68 36 H 96/65 L 96 Laboratory Results 04/04/21 08:27 04/04/21 05:42 Coding Level of Care Code Critical Care 1st 30-74 mins Diagnoses ARDS (adult respiratory distress syndrome) J80 Acute hypoxemic respiratory failure J96.01 Pneumonia due to COVID-19 virus U07.1; J12.82 Time Spent (min) 35
--- NOTE | 2021-04-04 14:24 | Cardiology Progress Note ---
Date of Service April 04, 2021 Assessment & Plan (1) Atrial fibrillation: (2) Atrial flutter: (3) ARDS (adult respiratory distress syndrome): (4) Hypoxia: (5) Pneumonia due to COVID-19 virus: Plan: Telemetry reveals rate controlled atrial fibrillation with asymptomatic bradycardia recorded overnight. Verapamil reduced to 5 mg every 8 hours. Continue to monitor telemetry. Digoxin will remain on hold. Continue anticoagulation as previously ordered with enoxaparin. Admission and Anticipated Discharge Date Admission Date: March 01, 2021 Subjective Patient seen examined the bedside. More alert today. Attempting to converse, however, difficult to understand with tracheostomy. Intermittent bradycardia recorded overnight. 2 doses of verapamil held. Digoxin discontinued yesterday. Review of Systems Review of Systems: Unobtainable due to cognitive status Physical Exam Constitutional: + ill appearing and + obese Respiratory: normal respiratory effort; no retractions Auscultation: no crackles, no rales, no rhonchi and no wheezes Cardiovascular: Rate/Rhythm: + irregularly irregular Heart Sounds: normal S1 and normal S2; no murmur Vessels: no JVD Gastrointestinal (Abdomen): Inspection/Auscultation: normal bowel sounds; abdomen not distended Percussion/Palpation: abdomen soft; abdomen nontender, no guarding and abdomen not rigid Results & Data ([facility]) Vital Signs (Past 12 Hours) Vital Signs Temp Pulse Resp BP Pulse Ox 04/04/21 10:10 79 31 H 97 04/04/21 08:00 75 34 H 93 04/04/21 05:45 37.1 C 79 29 H 106/59 L 98 04/04/21 04:15 36.9 C 68 43 H 105/63 96 04/04/21 03:15 36.8 C 65 29 H 85/61 L 99 04/04/21 03:00 36.8 C 62 35 H 85/61 L 97 04/04/21 02:45 36.9 C 69 21 90/59 L 93 04/04/21 02:30 36.9 C 67 31 H 97
[2021-04-04 15:02] LABS: Hematocrit (blood only) 25.4 % (42-52); Hemoglobin 7.9 g/dL (14.0-18.0)
[2021-04-04] MEDS ORDERED: FUROSEMIDE INJ 20 MG/2 ML VIAL IV ONE (15:23)
--- NOTE | 2021-04-04 16:48 | Hospitalist Progress Note ---
Date of Service April 04, 2021 Assessment & Plan (1) Acute hypoxemic respiratory failure: Plan: per Dr. Tuttle's notes with addendum: Acute respiratory failure with hypoxia Multifocal COVID pneumonia COVID Screen: Positive 02/28/21 CTA:No CTA evidence for pulmonary embolus. Extensive groundglass opacities are present throughout both lungs characteristic of a viral type pneumonitis Completed dexamethasone 10 days course Got baricitinib given for 6 days but discontinued due to acute DVTs (03/06/21) Had completed abx with cefepime and doxycycline for 7 days Remdesivir discontinued by pulmonary service Was on HFNC and with worsening resp status, was put on NIV and subsequently intubated on 03/19/21 Tracheostomy 03/23, on MV Vent and sedation management per guest services, andrew on propofol. Off on Nimbex today. Concern for developing fibrosis Finished azithro 03/24 and on dexamethasone ARDS protocol WBC fluctuating. Pt on Dexa ARDS protocol. Patient is having low-grade fever, 03/24 blood culture likely contaminant; 03/26 Bl Cx: NG so far. On Rocephin 03/26 --> changed to meropenem 03/30 (d/t sputum Cx growing GNB), On Caspofungin 03/29/21, management per ICU. 04/04/21 on precedex, on trach sputum culture: (+) Serratia on Zosyn IV on Dexamethasone, Lasix PRN CT head ordered: no acute process Deep venous thrombosis posterior tibial and peroneal veins In the setting of COVID-19 infection & baricitinib use Patient reports family history of blood clots Lovenox BID #. Aflutter w/ RVR bout of aflutter w/ rvr, cardioverted twice, bolused with amio twice, on amio drip. cardiology consulted 04/04/21 Digoxin held, on Verapamil- reduced to q8h on Lovenox Mild indirect bilirubinemia, elevated alk phos Resolved Liver ultrasound:The liver is normal in size and echogenicity. Incidental note is made of a small cyst within the liver. Hypertension Antihypertensive on hold while on sedation Chronic back pain Patient plans to follow up with Neurosurgery as outpatient Mood disorder/PTSD DVT Px: Lovenox held, SCDs while off of Anticoagulation Prognosis guarded. Full code Admission and Anticipated Discharge Date Admission Date: March 01, 2021 Subjective ff up for acute hypoxic respiratory failure, covid 19 pneumonia, etc on precedex, on trach more alert trying to speak shakes head when asked if he is having pain no signs of distress no other issues per coil former of Systems Review of Systems: all noted and negative except for above Physical Exam Physical Exam: General- breathing with no effort or accessory muscle use Eyes- anicteric Neck- no JVD Lungs- mild rales BL anteriorly Heart- normal rate, irregularly irregular rhythm; no murmurs Abdomen- normal bowel sounds, nondistended, soft, nontender Extremities-mild generalized edema, no calf tenderness Neuro- more alert, trying to speak Skin- warm & dry Results & Data Results & Data ([facility]) Vital Signs (Past 12 Hours) Vital Signs Temp Pulse Resp BP Pulse Ox 04/04/21 15:05 85 32 H 95 04/04/21 10:10 79 31 H 97 04/04/21 08:00 75 34 H 93 04/04/21 05:45 37.1 C 79 29 H 106/59 L 98 all noted and reviewed including below
[2021-04-05] MEDS: fentaNYL citrate 100 MCG/2 ML VIAL IV PRN ×6 (01:16→20:49)
[2021-04-05] MEDS: DEXMEDETOMIDINE HCL 400 MCG in 0.9 % SODIUM CHLORIDE 96 ML IV SCH ×10 (01:23→22:55)
[2021-04-05] MEDS: oxyCODONE HCL IR 5 MG TAB (IMMEDIATE RELEASE) PO SCH ×3 (03:08→20:47)
[2021-04-05] MEDS: TUBE FEEDING WATER FLUSH OG SCH ×5 (03:09→20:47)
[2021-04-05] MEDS: INSULIN ASPART PER UNIT SC SCH ×5 (03:09→21:24)
[2021-04-05 05:22] LABS: Basophils # (auto) 0.01 K/uL (0-0.2); Basophils % (auto) 0.1 %; Eosinophils # (auto) 0.06 K/uL (0-0.5); Eosinophils % (auto) 0.4 %; Hematocrit (blood only) 25.6 % (42-52); Hemoglobin 7.8 g/dL (14.0-18.0); Immature Granulocytes # (auto) 0.27 K/uL (0.00-0.02); Immature Granulocytes % (auto) 1.8 %; Lymphocytes # (auto) 2.06 K/uL (1.2-3.4); Lymphocytes % (auto) 13.7 %; Mean Corpuscular Hemoglobin 28.4 pg (25-34); Mean Corpuscular Hgb Conc 30.5 g/dL (32-36); Mean Corpuscular Volume 93.1 fL (80-100); Mean Platelet Volume 9.9 fL (7.4-10.4); Monocytes # (auto) 1.32 K/uL (0.11-0.59); Monocytes % (auto) 8.8 %; Neutrophils % (auto) 75.2 %; Platelet Count 603 K/uL (130-400); RDW Standard Deviation 47.4 fL (36.4-46.3); Red Blood Count 2.75 M/uL (4.7-6.1); White Blood Count 15.02 K/uL (4.8-10.8)
[2021-04-05 05:41] LABS: BUN Creatinine Ratio 57.3 (10-20); Calcium 8.4 mg/dl (8.5-10.1); Creatinine Clr Calc Pharmacy 133.1 ml/min; Est GFR (African American) 115.3 ml/min; Est GFR (Non-African American) 99.5 ml/min; Magnesium 2.5 mg/dl (1.8-2.4); Potassium 3.2 mmol/L (3.5-5.1)
[2021-04-05] MEDS: PIPERACILLIN/TAZOBACTAM 4.5 GM in DEXTROSE 5% 100 ML IV SCH ×3 (05:41→22:56)
[2021-04-05] MEDS: VERAPAMIL HCL 2.5 MG/ML 2 ML VIAL IV SCH ×2 (05:41→14:07)
[2021-04-05 05:45] LABS: iSTAT Art Bld Gas pCO2 Correct 49 mmHg (35-46); iSTAT Arterial Blood Gas HCO3 38 meg/L (19-24); iSTAT Arterial Blood Gas pCO2 49 mmHg (35-46); iSTAT Arterial Blood Gas pH 7.49 (7.35-7.45); iSTAT Arterial Blood Gas pO2 90 mmHg (80-95); iSTAT Arterial Blood Gas pO2 C 90; iSTAT Carbon Dioxide 39 mmol/L (24-31); iSTAT FiO2 40 %; iSTAT Hematocrit 23 % (42-52); iSTAT Hemoglobin 7.8 g/dl (14.0-18.0); iSTAT Potassium 3.2 mmol/L (3.3-5.0); iSTAT Site R Radial; iSTAT Sodium 143 mmol/L (135-144)
[2021-04-05 05:50] LABS: Phosphorus 3.6 mg/dl (2.5-4.9)
[2021-04-05 05:58] LABS: RBC Morphology Unremarkable
[2021-04-05] MEDS ORDERED: POTASSIUM CHLORIDE 20 MEQ/15 ML UDC PO STA (06:37)
[2021-04-05] MEDS: ENOXAPARIN INJ 120 MG/0.8 ML SYR SQ SCH ×2 (08:32→20:48)
[2021-04-05] MEDS: DOCUSATE SODIUM SYRUP 100 MG/10 ML UDC PO SCH ×2 (08:33→20:47)
[2021-04-05] MEDS: SENNOSIDES 8.8 MG/5 ML UDC PO SCH (08:33)
[2021-04-05] MEDS: GABAPENTIN 250 MG/5 ML 470 ML BTL PO SCH ×3 (08:33→20:47)
[2021-04-05] MEDS: PANTOprazole 40 MG in SYRINGE 0 ML IV SCH ×2 (08:33→20:48)
--- NOTE | 2021-04-05 08:39 | XRay Report ---
XR chest 1V portable CLINICAL HISTORY: f/u COMPARISON STUDY: Chest CT March 30, 2021. Chest radiograph April 03, 2021. FINDINGS: Tracheostomy tube is in place. Gas within the right neck is again noted. This was shown on prior exam. Tip of feeding tube is within the body of the stomach. Right PICC is in place. A small ri ght pneumothorax has nearly completely resolved. Multifocal airspace opacities within the lungs are s imilar to prior exam. Cardiomediastinal silhouette is stable. IMPRESSION: 1. Near complete resolution of the right pneumothorax. Redemonstration of a small amount of gas withi n the right neck. 2. No significant change in bilateral airspace opacities suggestive of viral pneumonia. ACT 112: Negative or not required by law. Electronically signed by: Joseph Hurley M.D. 04/05/2021 8:37 AM
--- NOTE | 2021-04-05 11:53 | Critical Care Progress Note ---
Date of Service April 05, 2021 Assessment & Plan (1) ARDS (adult respiratory distress syndrome): (2) Acute hypoxemic respiratory failure: (3) Pneumonia due to COVID-19 virus: Plan: Impression: 60-year-old male acute hypoxic respiratory failure secondary to COVID-19 pneumonia. Patient was admitted to the facility 03/01/2021. He was transferred to the ICU 03/19/2021 where he was intubated. Tracheostomy performed 03/23/2021 24-hour events: Patient has been weaned off of Versed. Propofol is now off. Neuromuscular blockade off. Currently on Precedex. Trach tube appears high. Recommendations: Neuro: Continue oral oxycodone. Weaning precedex as tolerated. Will place on 5 mg Zyprexa twice daily to see if this helps with agitation. Discontinue neuromuscular blockade. Continue Neurontin for chronic back pain. Continue Prozac and Wellbutrin given prior history of PTSD/mood disorder. Will monitor QTC Resp: Intubated 03/19/2021, tracheostomy 03/23/2021. Continue vent weaning proc ess. Completed antibiotics as well as dexamethasone and baricitinib. Consult for LTAC. No evidence of recurrent pneumothorax. Will replace tracheostomy today with XLT. Hematoma around trach site appears stable. Continue to follow CV: A. fib/flutter with rapid ventricular response. Status post cardioversion. Appreciate cardiology consultation. Fully anticoagulated with Lovenox. Blood pressures on the low side related to verapamil. Will defer decision regarding amiodarone to cardiology however risk-benefit may favor as low risk amiodarone may have negligible pulmonary toxicity. If continued issues, may need to discuss ablation. ID: Fevers appear resolved. White count decreasing. Central lines out. Completing course of Zosyn for Serratia in sputum. Continue to follow clinic ally Renal: No current issues. Continue electrolyte replacement. Hypercalcemia appears resolved. Initiate ICU replacement protocol GI/Nutrition: Tube feeding per nutrition. Will consult GI for PEG tube. Continue bowel protocol Heme: DVTs: On therapeutic Lovenox. Mild anemia. No indication for transfusion currently. Continue to trend. Endocrine: Glycemic control per protocol Full Code --Prophylaxis VTE: Therapeutic Lovenox GI: Protonix twice daily Lines: Right arm PICC 03/29/2021, peripherals, positive Hernandez, positive trach 03/23/2021 Diet: Tube feeds Patient's Mellissa complained [phone] I have personally spent 50 minutes of critical care time in the direct management of this patient. Patient is critically ill with significant possibility of clinical deterioration and This is a life/limb threatening event. This includes time spent evaluating patient, direct bedside care, chart review, placing orders, interpretation of diagnostic studies, discussion with consultants, patient, and family members, as well as other required patient management activities. This time is exclusive of all separately billable procedures, and teaching time and separate from and in addition to any other critical care service time. Please note the above document was generated using voice recognition software. It may contain grammatical, syntax or spelling errors. Admission and Anticipated Discharge Date Admission Date: March 01, 2021 Subjective intubated and sedated. Review of Systems Review of Systems: Unobtainable due to endotracheal tube Physical Exam Constitutional: WD/WN, vitals as above Neck: trachea midline, no thyromegaly Respiratory: normal respiratory effort; no respiratory distress, no labored breathing and not tachypneic Auscultation: + crackles and + wheezes Cardiovascular: RRR, no murmur, no edema Gastrointestinal (Abdomen): normal bowel sounds, soft, nontender, no hepatosplenomegaly Musculoskeletal: Extremities: extremities normal to inspection Skin: no rashes, warm and dry Lymphatic: no cervical lymphadenopathy Results & Data Results & Data ([facility]) Vital Signs (Past 12 Hours) Vital Signs Temp Pulse Resp BP Pulse Ox 04/05/21 08:29 83 30 H 95/54 L 04/05/21 08:00 36.9 C 04/05/21 07:45 97 H 22 89 L 04/05/21 07:41 110/67 04/05/21 07:30 103 H 34 H 89 L 04/05/21 07:15 113 H 34 H 118/65 90 04/05/21 07:00 90 40 H 79/64 L 87 L 04/05/21 05:29 89 29 H 100/51 L 95 04/05/21 05:15 83 21 89/68 L 96 04/05/21 05:00 90 24 94/49 L 96 04/05/21 04:15 37.0 C 95 H 29 H 107/61 97 04/05/21 03:15 102 H 38 H 122/75 84 L 01/10/22 03:05 69 25 H 93 04/05/21 02:14 71 27 H 91/53 L 04/05/21 01:03 83 29 H 100/48 L 04/05/21 00:00 37.0 C 92 H 28 H 96/45 L 94 Critical Care Results & Data Vital Signs (Past 12 Hours) Vital Signs Temp Pulse Resp BP Pulse Ox 04/05/21 08:29 83 30 H 95/54 L 04/05/21 08:00 36.9 C 04/05/21 07:45 97 H 22 89 L 04/05/21 07:41 110/67 04/05/21 07:30 103 H 34 H 89 L 04/05/21 07:15 113 H 34 H 118/65 90 04/05/21 07:00 90 40 H 79/64 L 87 L 04/05/21 05:29 89 29 H 100/51 L 95 04/05/21 05:15 83 21 89/68 L 96 04/05/21 05:00 90 24 94/49 L 96 04/05/21 04:15 37.0 C 95 H 29 H 107/61 97 04/05/21 03:15 102 H 38 H 122/75 84 L 04/05/21 03:05 69 25 H 93 04/05/21 02:14 71 27 H 91/53 L 04/05/21 01:03 83 29 H 100/48 L 04/05/21 00:00 37.0 C 92 H 28 H 96/45 L 94 Lab & Micro Results (Past 24 Hours) RBC 2.75 M/uL (4.7-6.1) L 04/05/21 WBC 15.02 K/uL (4.8-10.8) H 04/05/21 Hgb 7.8 g/dL (14.0-18.0) L 04/05/21 Hct 25.6 % (42-52) L 04/05/21 MCV 93.1 fL (80-100) 04/05/21 MCH 28.4 pg (25-34) 04/05/21 MCHC 30.5 g/dL (32-36) L 04/05/21 RDW Standard Deviation 47.4 fL (36.4-46.3) H 04/05/21 RDW Coefficient of Variation 14.0 % (11.5-14.5) 04/05/21 Plt Count 603 K/uL (130-400) H 04/05/21 MPV 9.9 fL (7.4-10.4) 04/05/21 Neutrophils (%) (Auto) 75.2 % 04/05/21 Lymphocytes (%) (Auto) 13.7 % 04/05/21 Monocytes # (Auto) 1.32 K/uL (0.11-0.59) H 04/05/21 Eosinophils # (Auto) 0.06 K/uL (0-0.5) 04/05/21 Immature Granulocyte % (Auto) 1.8 % 04/05/21 Neutrophils # (Auto) 11.30 K/uL (1.4-6.5) H 04/05/21 Lymphocytes # (Auto) 2.06 K/uL (1.2-3.4) 04/05/21 Monocytes # (Auto) 1.32 K/uL (0.11-0.59) H 04/05/21 Eosinophils # (Auto) 0.06 K/uL (0-0.5) 04/05/21 Basophils # (Auto) 0.01 K/uL (0-0.2) 04/05/21 Immature Granulocyte # (Auto) 0.27 K/uL (0.00-0.02) H 04/05/21 Red Blood Cell Morphology Unremarkable 04/05/21 Na 143 mmol/L (136-145) 04/05/21 K 3.2 mmol/L (3.5-5.1) L 04/05/21 Cl 104 mmol/L (98-107) 04/05/21 CO2 36 mmol/L (21-32) H 04/05/21 Anion Gap 3.0 (3-11) 04/05/21 BUN 45 mg/dl (7-18) H 04/05/21 Creatinine 0.78 mg/dl (0.6-1.4) 04/05/21 Estimated GFR ( Amer) 115.3 ml/min 04/05/21 Estimated GFR (Non-Af Amer) 99.5 ml/min 04/05/21 BUN/Creatinine Ratio 57.3 (10-20) H 04/05/21 Glu 120 mg/dl (70-99) H 04/05/21 Ca 8.4 mg/dl (8.5-10.1) L 04/05/21 Phosphorus Level 3.6 mg/dl (2.5-4.9) 04/05/21 Mg 2.5 mg/dl (1.8-2.4) H 04/05/21 05:09 04/05/21 Calcium Level 8.4 mg/dl (8.5-10.1) L 04/05/21 05:09 04/05/21 Rafa Test NA 04/05/21 05:31 04/05/21 Microbiology 03/29/21 10:37 Fungal Smear - Final Blood Fungal Culture - Preliminary No yeast or fungus isolated - Report 1, Additional Report to Follow. Diagnostic Findings (Past 24 Hours) Chest X-Ray 04/05/21 07:00 XR chest 1V portable CLINICAL HISTORY: f/u COMPARISON STUDY: Chest CT March 30, 2021. Chest radiograph April 03, 2021. FINDINGS: Tracheostomy tube is in place. Gas within the right neck is again noted. This was shown on prior exam. Tip of feeding tube is within the body of the stomach. Right PICC is in place. A small right pneumothorax has nearly completely resolved. Multifocal airspace opacities within the lungs are similar to prior exam. Cardiomediastinal silhouette is stable. IMPRESSION: 1. Near complete resolution of the right pneumothorax. Redemonstration of a small amount of gas within the right neck. 2. No significant change in bilateral airspace opacities suggestive of viral pneumonia. ACT 112: Negative or not required by law. Electronically signed by: Joseph Hurley M.D. 04/05/2021 8:37 AM I & O Totals 24 Hours 04/04/21 04/05/21 04/06/21 06:59 06:59 06:59 Intake Total 1971.44 / 1971.44 2936.967 / 2936.967 268.97 / 268.97 Output Total 450 / 450 775 / 775 Balance 1521.44 / 1521.44 2161.967 / 2161.967 268.97 / 268.97 Cumulative 02/28/21 20:05 thru 04/05/21 11:03 Intake Total 77646.028 Output Total 17238 Balance 5295.028 RT Ventilator Mngmt (Last Documented) Ventilator Ordered Settings Ventilator Support Mode Pressure Control 04/05/21 08:00 Respiratory Rate 30 04/05/21 08:29 Ventilator Tidal Volume 400 04/05/21 08:00 Setting Minute Ventilation 8.4 04/05/21 07:45 Ventilator Positive Pressure 4 03/30/21 20:00 Support Setting Positive End Expiratory 5 04/05/21 08:00 Pressure Fraction of Inspired Oxygen 40 04/05/21 08:00 Peak Inspiratory Flow 42 03/25/21 16:49 Machine Comment increased to 40%O2 04/05/21 07:45 Ventilator - PT Measurements Respiratory Rate 30 Exhaled Tidal Volume 415 Minute Ventilation 8.4 Peak Inspiratory Airway 25 Pressure Plateau Pressure 19 Respiratory Cycle Inspiratory: 1:2.3 Expiratory Ratio Inspiratory Phase Time 0.90 End-Tidal CO2 32 Static Lung Compliance 29.64 Dynamic Lung Compliance 20.75 Normal Static Lung Compliance 46.00 Patient Measurements Comment trach manipulated to achieve adequate VT. WILLIAMS and Dr. Rowland aware of difficulty passin sx cath and volumes. Coding Level of Care Code Critical Care 1st 30-74 mins Diagnoses ARDS (adult respiratory distress syndrome) J80 Acute hypoxemic respiratory failure J96.01 Pneumonia due to COVID-19 virus U07.1; J12.82 Time Spent (min) 50
[2021-04-05] MEDS: PEPTAMEN INTENSE VHP 1.0 CAL 1,000 ML BAG OG SCH (11:55)
[2021-04-05] MEDS ORDERED: propofoL 1,000 MG/100 ML VIAL IV SCH (12:00)
[2021-04-05] MEDS ORDERED: STAT IV Infusion **Titration per Protocol STA (12:00)
[2021-04-05] MEDS ORDERED: PROPOFOL BOLUS FROM BAG IV PRN (12:00)
[2021-04-05] MEDS ORDERED: PROPOFOL IV EMULSION 10 MG/ML 20 ML VIAL IV PRN ×2 (12:05→12:15)
--- NOTE | 2021-04-05 12:48 | Procedure Note ---
Procedure Note Date of Service April 05, 2021 Note Procedure: Fiberoptic bronchoscopy Replacement of existing tracheostomy tube Provider: Mateo Mcmanus MD Consent: Procedure was emergent to determine positioning of tracheostomy tube. Patient is intubated sedated and unable to provide consent. No family immediately available Procedure: Patient was in the intensive care unit on the ventilator. His tracheostomy appears to be high and evaluation was required to determine appr opriate placement. He was placed on high percent FiO2. He was on a Precedex infusion. 20 mL of IV propofol was administered in conjunction with 50 mcg of fentanyl The fiberoptic scope was advanced through the existing tracheostomy tube via the Bodai adapter. The tube was approximately 7 cm off the christie. There were some thin secretions identified. The scope was then withdrawn from the existing tracheostomy tube and advanced through the right nares through the posterior oropharynx until the epiglottis was visualized. There were purulent secretions lying above the vocal cords. These were suctioned free. The vocal cords was visualized. I was able to pass the scope through the cords. The balloon of the tracheostomy tube was visualized at the tracheotomy site. This was high and not optimally positioned. Decision was made to replace the existing trach tube. Scope was withdrawn from the nasopharynx. The patient was placed in supine position and a roll placed underneath the shoulders. The neck was extended. The patient was disconnected from the ventilator and the exchange catheter advanced through the existing tracheostomy tube. The sutures were cut and the balloon deflated. The trach tube was removed over the existing exchange catheter. A fresh proximal XLT 8.0 Shiley catheter was loaded on a delivery catheter. This was advanced over the exchange catheter into the airway. The exchange catheter and loading dilator were removed. Prior to ventilation, the fiberoptic bronchoscope was advanced through the newly placed tracheostomy tube and verified to be within the airway just above the main christie. Patient was attached to the ventilator. The fiberoptic scope was then readvanced through the right nares. We were able to pass through the vocal cords. There was significant granulation tissue at the site of the previous tracheostomy where the balloon was abutting the tracheal wall. The newly placed XLT appeared to be in much better position. The bronchoscope was then removed from the airways. The patient tolerated the procedure well without obvious complication. Patient was returned to the recovery room. Impression: 1. Suboptimally positioned 8.0 standard Shiley tracheostomy tube. 2. Status post replacement of proximal XLT 8.0 Shiley trach tube, in good position Coding CPT Codes Pulmonary/Thoracic - Pulmonary and Thoracic: 67927 Dx bronchoscopy/wash ([id number]) Pulmonary/Thoracic - Pulmonary and Thoracic: 05647 Tracheotomy tube change ([id number]) [facility] [place] Codes (Charges) Pulmonary/Thoracic Procedure 1: Pulmonary and Thoracic: 66037 Dx bronchoscopy/wash Procedure 2: Pulmonary and Thoracic: 71685 Tracheotomy tube change
--- NOTE | 2021-04-05 13:10 | Pharmacy Report ---
Pharmacy Glycemic Short Note 2 - Date of Service April 05, 2021 - Glycemic Short BSG Results (Last 24 hours): 04/04/21 04/04/21 04/04/21 17:18 20:24 23:11 Glucose POC Glucose 118 H 110 H 101 H 04/05/21 04/05/21 04/05/21 03:02 05:09 08:27 Glucose 120 H POC Glucose 84 151 H 04/05/21 11:53 Glucose POC Glucose 125 H OUTPATIENT ANTIDIABETIC REGIMEN: * N/A * A1c = ? ASSESSMENT: 04/05: * Patient well controlled on novolog coverage alone over the past 24 hours. TF formula to change today, will monitor for any significant changes in BSG. 04/02 * BSGs reasonably well controlled over last 24 hrs. Phenylephrine has been weaned off. Novasource Renal tube feeds were held this am, but have been resumed and are currently running at 35cc/hr. Dexamethasone 2.5mg IV Q AM con tinues, however no further doses are ordered after tomorrow's dose. Will continue w/ current insulin doses another 24 hrs. 04/01 * Patient currently admitted to ICU for multiple medical issues. He was initially admitted for resp failure due to COVID19 viral pna. He remains vent dependent s/p trach. He is receiving abx for serratia VAP. Dexamethasone IV continues however the dose is being tapered (he received a lesser dose today vs yesterday). A flutter has led to initiation of verapamil IV along w/ pheny.ephrine for pressor support. He has been receiving Novasource Renal tube feeds at 20cc/hr continuous. * BSGs checked via iSTAT tend to be much higher than those checked with Accuchek. iSTAT is preferred while receiving pressors. * Will adjust Novolog regimen to allow for greater doses to cover carbs in continous tube feeds. Will change base solution of pressors to NS to minimize IV dextrose. Will give a single dose of Lantus x 1 today. PLAN FOR INPATIENT GLYCEMIC CONTROL: * Basal insulin * none * Bolus insulin * NovoLog per scale Q 4 hrs * Goal Range: Low 110 mg/dL - High 140 mg/dL * Correction Factor: 20 mg/dL/unit * Nutritional / Prandial insulin per carb ratio of 1 unit per 7 grams CHO consumed PLAN FOR DISCHARGE: * to be determined
[2021-04-05] MEDS: OLANZapine 5 MG TABLET PO SCH ×2 (14:06→20:48)
--- NOTE | 2021-04-05 14:32 | Cardiology Progress Note ---
Date of Service April 05, 2021 Assessment & Plan (1) Atrial fibrillation: (2) Atrial flutter: (3) ARDS (adult respiratory distress syndrome): (4) Hypoxia: (5) Pneumonia due to COVID-19 virus: Plan: Telemetry reveals rate controlled atrial fibrillation in the 70s. One 3 s pause observed just after midnight. Digoxin discontinued due to concerns of bradycardia. Has missed verapamil doses due to hypotension, SBP 70-100 mmHg. Cased discussed with Dr Mcmanus of pulmonary / critical care. Although rates are well controlled at present, we both have concerns about the patient's risk of ongoing tachycardia. At present we agree that at this time, the benefits of a trial of amiodarone outweigh the risks of pulmonary toxicity. LFTs stable a few days ago. TSH low on 03/30/21, but T4 was normal. DC digoxin, fluoxetine (already on hold), and verapamil. Start amiodarone 200 mg via feeding tube BID. Continue anticoagulation with lovenox. Admission and Anticipated Discharge Date Admission Date: March 01, 2021 Subjective Patient with continued ventilator support via tracheostomy. Review of Systems Review of Systems: Unobtainable due to reduced consciousness Physical Exam Physical Exam: Temp Pulse Resp BP Pulse Ox 36.9 C 73 20 106/56 L 96 04/05/21 08:00 04/05/21 14:00 04/05/21 14:00 04/05/21 13:59 04/05/21 14:00 Constitutional: + ill appearing Respiratory: decreased BS at the bases Cardiovascular: Rate/Rhythm: + irregularly irregular Heart Sounds: no murmur Extremities: no edema Gastrointestinal (Abdomen): soft nontender Neurologic: sedated with dexmedetomidine, opens eyes on command Results & Data ([facility]) Vital Signs (Past 12 Hours) Vital Signs Temp Pulse Resp BP Pulse Ox 04/05/21 14:00 73 20 96 04/05/21 13:59 84 23 106/56 L 97 04/05/21 13:54 68 23 125/59 L 97 04/05/21 13:48 73 24 113/70 04/05/21 13:43 70 26 H 120/59 L 04/05/21 13:39 77 29 H 95/59 L 93 04/05/21 13:33 75 24 76/58 L 88 L 04/05/21 13:30 84 28 H 92 04/05/21 13:19 81 33 H 102/48 L 91 04/05/21 13:13 76 28 H 116/69 04/05/21 13:04 86 57 H 80/57 L 88 L 04/05/21 13:00 86 33 H 89 L 04/05/21 12:53 80 28 H 98/67 L 04/05/21 12:48 64 30 H 92/56 L 88 L 04/05/21 12:44 102 H 38 H 96/60 L 88 L 04/05/21 12:39 82 24 98/58 L 98 04/05/21 12:34 95 H 26 H 87/62 L 97 04/05/21 12:30 73 28 H 99 04/05/21 12:18 85 21 90/55 L 04/05/21 12:00 73 28 H 97 04/05/21 11:30 75 35 H 96 04/05/21 11:29 85 21 91/58 L 04/05/21 11:00 77 22 96 04/05/21 10:30 84 25 H 96 04/05/21 10:29 86 29 H 85/54 L 04/05/21 10:00 78 30 H 95 04/05/21 09:30 76 39 H 96 04/05/21 09:29 82 24 92/50 L 04/05/21 08:29 83 30 H 95/54 L 04/05/21 08:00 36.9 C 04/05/21 07:45 97 H 22 89 L 04/05/21 07:41 110/67 04/05/21 07:30 103 H 34 H 89 L 04/05/21 07:15 113 H 34 H 118/65 90 04/05/21 07:00 90 40 H 79/64 L 87 L 04/05/21 05:29 89 29 H 100/51 L 95 04/05/21 05:15 83 21 89/68 L 96 04/05/21 05:00 90 24 94/49 L 96 04/05/21 04:15 37.0 C 95 H 29 H 107/61 97 04/05/21 03:15 102 H 38 H 122/75 84 L 04/05/21 03:05 69 25 H 93
[2021-04-05] MEDS: AMIODARONE 200 MG TAB PO SCH (17:51)
[2021-04-05] MEDS: ICU ELECTROLYTE REPLACEMENT PROTOCOL SCH (17:51)
--- NOTE | 2021-04-05 22:57 | Electroencephalogram ---
EEG Procedure Note Date of Service April 05, 2021 Start / End Times Start Time: 10:44 End Time: 11:[address] Janett MD History A 60 year old male with encephalopaty. EEG performed for evaluation of epileptiform activity. Home Medication List Medication Instructions Recorded Confirmed Type amlodipine 5 mg tablet (Norvasc) 5 mg PO QAM 01/14/21 02/28/21 History bupropion HCl 300 mg 24 hr tablet, 300 mg PO PM 01/14/21 02/28/21 History extended release carvedilol 6.25 mg tablet 6.25 mg PO BID 01/14/21 02/28/21 History cholecalciferol (vitamin D3) 25 25 mcg PO HS 01/14/21 02/28/21 History mcg (1,000 unit) capsule cyanocobalamin (vitamin B-12) 1,000 mcg PO HS 01/14/21 02/28/21 History 1,000 mcg capsule ezetimibe 10 mg tablet 10 mg PO QAM 01/14/21 02/28/21 History fluoxetine 40 mg capsule (Prozac) 40 mg PO QAM 01/14/21 02/28/21 History fluticasone propionate 50 2 spray INTRANASAL DAILY 01/14/21 02/28/21 History mcg/actuation nasal spray,suspension (Children's Flonase Allergy Relief) gabapentin 400 mg capsule 400 mg PO TID 01/14/21 02/28/21 History hydrochlorothiazide 25 mg tablet 25 mg PO QAM 01/14/21 02/28/21 History ketoconazole 2 % shampoo 1 applic TOPICAL Q14D 01/14/21 02/28/21 History lansoprazole 30 mg capsule,delayed 30 mg PO BID 01/14/21 02/28/21 History release hydrocodone bitartrate 10 mg 10 mg PO Q12H PRN 01/15/21 02/28/21 History capsule, oral only, extended rel 12 hr ibuprofen 200 mg tablet (Motrin IB) 200 mg PO Q6H PRN 01/15/21 02/28/21 History pseudoephedrine HCl 120 mg 120 mg PO Q12H PRN 01/15/21 02/28/21 History tablet,extended release (Sudafed 12 Hour) Description This is a 21 electrode EEG with a single channel dedicated to limited EKG. The electrodes were placed in accordance with the International 10-20 system. REPORT: At the onset the EEG the patient is in an altered mental state. The background is symmetric although disorganized. There is a loss of the normal anterior to posterior gradient. The posterior dominant rhythm is not well seen. Instead the background consist of a mixture of theta-delta activity with some intermixed faster frequencies. Eye blink artifact is note. No stage II sleep transients are seen. Photic stimulation does not induce any additional abnormalities. Interpretation IMPRESSION: This is an abnormal routine EEG in a patient with altered mentation due to generalized background slowing suggestive of non specific encephaloapthy. No epileptiform activity is recorded.
[2021-04-06] MEDS: INSULIN ASPART PER UNIT SC SCH ×6 (00:26→20:19)
[2021-04-06] MEDS: fentaNYL citrate 100 MCG/2 ML VIAL IV PRN ×5 (00:27→22:36)
[2021-04-06] MEDS: TUBE FEEDING WATER FLUSH OG SCH ×6 (01:04→20:13)
[2021-04-06] MEDS: DEXMEDETOMIDINE HCL 400 MCG in 0.9 % SODIUM CHLORIDE 96 ML IV SCH ×4 (01:48→13:54)
[2021-04-06] MEDS: oxyCODONE HCL IR 5 MG TAB (IMMEDIATE RELEASE) PO SCH ×3 (03:22→20:13)
[2021-04-06 05:02] LABS: Basophils # (auto) 0.02 K/uL (0-0.2); Basophils % (auto) 0.1 %; Eosinophils # (auto) 0.18 K/uL (0-0.5); Eosinophils % (auto) 1.3 %; Hematocrit (blood only) 25.5 % (42-52); Hemoglobin 7.9 g/dL (14.0-18.0); Immature Granulocytes # (auto) 0.44 K/uL (0.00-0.02); Immature Granulocytes % (auto) 3.2 %; Lymphocytes # (auto) 2.56 K/uL (1.2-3.4); Lymphocytes % (auto) 18.8 %; Mean Corpuscular Hemoglobin 28.7 pg (25-34); Mean Corpuscular Volume 92.7 fL (80-100); Monocytes # (auto) 1.03 K/uL (0.11-0.59); Monocytes % (auto) 7.6 %; Neutrophils # (auto) 9.38 K/uL (1.4-6.5); Platelet Count 628 K/uL (130-400); RDW Coefficient of Variation 14.2 % (11.5-14.5); RDW Standard Deviation 46.7 fL (36.4-46.3); Red Blood Count 2.75 M/uL (4.7-6.1); White Blood Count 13.61 K/uL (4.8-10.8)
[2021-04-06 05:19] LABS: iSTAT Allen Test Pass; iSTAT Art Bld Gas pCO2 Correct 51 mmHg (35-46); iSTAT Art Bld Gas pH Corrected 7.447 (7.35-7.45); iSTAT Arterial Blood Gas HCO3 35 meg/L (19-24); iSTAT Arterial Blood Gas pCO2 52 mmHg (35-46); iSTAT Arterial Blood Gas pH 7.44 (7.35-7.45); iSTAT Arterial Blood Gas pO2 45 mmHg (80-95); iSTAT Arterial Blood Gas pO2 C 43; iSTAT Carbon Dioxide 37 mmol/L (24-31); iSTAT FiO2 30 %; iSTAT Hematocrit 23 % (42-52); iSTAT Hemoglobin 7.8 g/dl (14.0-18.0); iSTAT Site L Radial; iSTAT Sodium 144 mmol/L (135-144)
[2021-04-06] MEDS: PIPERACILLIN/TAZOBACTAM 4.5 GM in DEXTROSE 5% 100 ML IV SCH ×3 (05:21→21:10)
[2021-04-06 05:24] LABS: Calcium 8.2 mg/dl (8.5-10.1); Creatinine Clr Calc Pharmacy 126.6 ml/min; Est GFR (Non-African American) 97.5 ml/min; Magnesium 2.5 mg/dl (1.8-2.4); Phosphorus 3.8 mg/dl (2.5-4.9)
[2021-04-06 05:30] LABS: RBC Morphology Unremarkable
[2021-04-06] MEDS ORDERED: POTASSIUM CHLORIDE 20 MEQ/15 ML UDC PO STA (06:13)
[2021-04-06] MEDS: POTASSIUM CHLORIDE 20 MEQ/15 ML UDC NG SCH ×4 (06:41→20:13)
[2021-04-06] MEDS: ICU ELECTROLYTE REPLACEMENT PROTOCOL SCH ×2 (06:42→17:48)
[2021-04-06 06:49] LABS: Estimated Average Glucose 146 mg/dl; Hemoglobin A1C 6.7 % (4.5-5.6)
[2021-04-06] MEDS: GABAPENTIN 250 MG/5 ML 470 ML BTL PO SCH ×3 (07:55→20:13)
[2021-04-06] MEDS: OLANZapine 5 MG TABLET PO SCH ×2 (07:55→20:14)
[2021-04-06] MEDS: DOCUSATE SODIUM SYRUP 100 MG/10 ML UDC PO SCH ×2 (07:55→20:14)
[2021-04-06] MEDS: AMIODARONE 200 MG TAB PO SCH ×2 (07:55→17:07)
[2021-04-06] MEDS: ENOXAPARIN INJ 120 MG/0.8 ML SYR SQ SCH (07:56)
[2021-04-06] MEDS: SENNOSIDES 8.8 MG/5 ML UDC PO SCH (07:56)
[2021-04-06] MEDS: PANTOprazole 40 MG in SYRINGE 0 ML IV SCH (07:58)
--- NOTE | 2021-04-06 08:27 | Critical Care Progress Note ---
Date of Service April 06, 2021 Assessment & Plan (1) ARDS (adult respiratory distress syndrome): (2) Acute hypoxemic respiratory failure: (3) Pneumonia due to COVID-19 virus: Plan: Impression: 60-year-old male acute hypoxic respiratory failure secondary to COVID-19 pneumonia. Patient was admitted to the facility 03/01/2021. He was transferred to the ICU 03/19/2021 where he was intubated. Tracheostomy performed 03/23/2021 24-hour events: Patient has been weaned off of Versed. Propofol is now off. Neuromuscular blockade off. Currently on Precedex. Trach exchanged yesterday for XLT. He was started on Zyprexa yesterday. GI consulted for PEG yesterday and plan for patient to undergo PEG tube insertion tomorrow. Recommendations: Neuro: Continue oral oxycodone. Weaning precedex as tolerated. Started on 5 mg Zyprexa twice daily yesterday. Discontinue neuromuscular blockade. Continue Neurontin for chronic back pain. Continue Prozac and Wellbutrin given prior history of PTSD/mood disorder. Will monitor QTC Resp: Intubated 03/19/2021, tracheostomy 03/23/2021. Trach exchanged 04/05 for XLT. Continue vent weaning process. Completed antibiotics as well as dexamethasone and baricitinib. Consult for LTAC. No evidence of recurrent pneumothorax. Hematoma around trach site appears stable. Continue to follow CV: A. fib/flutter with rapid ventricular response. Status post cardioversion. Appreciate cardiology consultation. Fully anticoagulated with Lovenox (currently being held for 24 hours for PEG placement tomorrow). Blood pressures on the low side related to verapamil. Started on oral amiodarone per cardiology yesterday. Currently rate controlled. If continued issues, may need to discuss ablation. ID: Fevers appear resolved. White count decreasing. Central lines out. Completing course of Zosyn for Serratia in sputum. Continue to follow clinically Renal: No current issues. Continue electrolyte replacement. Hypercalcemia appears resolved. Initiate ICU replacement protocol GI/Nutrition: Tube feeding per nutrition. GI consulted for PEG tube and plan for PEG tube placement tomorrow. N.p.o. at midnight. Lovenox on hold for 24 hours. Continue bowel protocol Heme: DVTs: Lovenox on hold for PEG tube placement tomorrow. Mild anemia. No indication for transfusion currently. Continue to trend. Endocrine: Glycemic control per protocol Full Code --Prophylaxis VTE: Therapeutic Lovenox on hold for PEG tube placement GI: Protonix twice daily Lines: Right arm PICC 03/29/2021, peripherals, positive Hernandez, positive trach 03/23/2021 Diet: Tube feeds Patient's Mellissa [phone] CRITICAL CARE TIME - I have personally spent 40 minutes of critical care time in the direct management of this patient. This is a life/limb threatening event. This includes time spent evaluating patient, direct bedside care, chart review, placing orders, interpretation of diagnostic studies, discussion with consultants, patient, and family members, as well as other required patient management activities. This time is exclusive of all separately billable procedures, and teaching time and separate from and in addition to any other critical care service time. Please note the above document was generated using voice recognition software. It may contain grammatical, syntax or spelling errors. Admission and Anticipated Discharge Date Admission Date: March 01, 2021 Supervising Physician Co-Signing Physician Notes Patient seen and examined. EMR reviewed. Discussed with critical care nurse at bedside and on multidisciplinary rounds. Spouse updated by phone. The patient is doing well with antipsychotics. His Precedex has been weaned off. We are attempting pressure support trials as tolerated. He intermittently becomes tachypneic and dropped his oxygen saturations with these interventions but will continue to try. Wound care consult for the sacral decubitus ulcer. We will try and get him to a chair today. PEG tube tomorrow. Complete course of antibiotics for Serratia pneumonia. Tolerating tube feeding. Discussed with case management. The patient is appropriate for LTAC once PEG tube is then placed, likely later this week. Review of Systems Review of Systems: Unobtainable due to endotracheal tube Physical Exam Constitutional: WD/WN, vitals as above comfortable and + mechanically ventilated Eyes: PERRL, conjunctivae normal, anicteric sclerae ENMT: external ear and nose normal, oropharynx normal Neck: trachea midline, no thyromegaly Tracheostomy midline with surrounding hematoma stable Respiratory: normal respiratory effort; no respiratory distress, no labored breathing, no cough and not tachypneic Lungs coarse with auscultation bilaterally, no crackles, no wheezes. Symmetrical chest wall movement Cardiovascular: Atrial fibrillation on monitor, rate controlled. S1-S2. No JVD, generalized edema. Gastrointestinal (Abdomen): normal bowel sounds, soft, nontender, no hepatosplenomegaly Musculoskeletal: no cyanosis or clubbing, extremities motor strength 5/5 Skin: no rashes, warm and dry Neurologic: PERRL, EOMI, accommodation nl, no face palsy, no dysarthria Psychiatric: Follows commands. Euthymic affect. Results & Data Results & Data ([facility]) Vital Signs (Past 12 Hours) Vital Signs Temp Pulse Resp BP Pulse Ox 04/06/21 05:33 68 26 H 122/50 L 100 04/06/21 04:33 90 19 103/59 L 100 04/06/21 03:44 78 31 H 114/55 L 90 04/06/21 02:56 65 26 H 99 04/06/21 02:42 47 L 22 86/58 L 98 04/06/21 01:00 77 24 94/54 L 96 04/06/21 00:04 36.6 C 96/53 L 100 04/05/21 22:53 81 27 H 100 04/05/21 22:19 69 28 H 82/55 L 99 04/05/21 22:00 100 H 40 H 97 04/05/21 21:33 88 30 H 134/71 98 04/05/21 21:04 75 39 H 114/52 L 86 L 04/05/21 20:34 37.2 C 89 43 H 138/71 95 04/05/21 20:30 59 L 28 H 95 Coding Level of Care Code 33463 Subseq Hosp Care Lvl 3 Diagnoses ARDS (adult respiratory distress syndrome) J80 Acute hypoxemic respiratory failure J96.01 Pneumonia due to COVID-19 virus U07.1; J12.82
--- NOTE | 2021-04-06 08:37 | XRay Report ---
XR chest 1V portable HISTORY: 60 years-old Male f/u acute shortness of breath COMPARISON: Chest radiograph 04/05/2021 TECHNIQUE: Portable AP view of the chest FINDINGS: Distal tip of a feeding tube projects over the duodenal bulb. A right-sided PICC is noted with distal tip appearing to overlie the right atrium. Tracheostomy cannula overlies the midline at the level th e clavicular heads. Cardiomegaly. No pneumothorax. Possible trace effusions. Interstitial coarsening with multifocal airspace opacities, slightly progressed from prior. Degenerative changes of the shoul ders and spine. Cholecystectomy. Suspected trace gas within the right supraclavicular tissues redemon strated. IMPRESSION: 1. Lines and tubes as above. 2. Mildly progressed multifocal opacities suggestive of viral pneumonia. 3. Suspected trace soft tissue air within the right supraclavicular tissues redemonstrated. No pneumo thorax. ACT 112: Negative or not required by law. The above report was generated using voice recognition software. It may contain grammatical, syntax o r spelling errors. Electronically signed by: Omer Coto M.D. 04/06/2021 8:36 AM
[2021-04-06] MEDS ORDERED: AMIODARONE 200 MG TAB PO SCH (09:00)
--- NOTE | 2021-04-06 10:59 | Gastrointestinal Consultation ---
Date of Consultation April 06, 2021 Assessment & Plan (1) Dysphagia: Due to trach/ventilator. Will need director weights and measures nutritional support. Will plan for EGD with PEG tube insertion tomorrow. Will touch base with his for consent. NPO (stop NG feeding tube feedings) at midnight. Hold Lovenox this evening and tomorrow morning for procedure tomorrow. Supervising Physician Co-Signing Physician Notes Attg add: Pt with COVID pneumonia, being considered for LTAC, s/p trach 03/23 now seen for PEG tube eval. On Zosyn, nl platelets and coags. Nohemy NG feeds. Abd soft and ND, no surg scars. Anticiapte PEG tube tomorrow - please hold TF's at [place]. Spoke to , Mellissa, who is agreeable to procedure. History of Present Illness Reason for Consultation: PEG tube Requesting Physician: Dr. Mata Attending Physician: Luis Manuel Mata MD History of Present Illness Mr. Jason Oscar is a 60 yr old male pt of Dr. Dodge with a hx of HTN, Hyperlipidemia, chronic back pain, mood disorder/PTSD, MADINA, Prior smoker who was admitted with COVID pneumonia/respiratory failure on 03/01 who had a trach/ventilator who is receiving nutrition by NG feeding tube. GI has been asked to provide a PEG tube to meet director weights and measures nutritional needs, prior to transfer to an LTAC facility. He is currently on Zosyn and stable from a cardio/respiratory standpoint. The pt is awake, alert, oriented and seems to understand the explanation of the indication for the procedure, but I am unable to understand his attempts at verbal communication. He indicated a wish to write, but I was unable to understand his writing. Allergies Allergy/AdvReac Type Severity Reaction Status Date / Time lisinopril Allergy Intermediate Angioedema Verified 02/28/21 21:58 pentazocine [From [place]] AdvReac Mild Vomiting Verified 02/28/21 21:58 Home Medications Medication Instructions Recorded Confirmed Type amlodipine 5 mg tablet (Norvasc) 5 mg PO QAM 01/14/21 02/28/21 History bupropion HCl 300 mg 24 hr tablet, 300 mg PO PM 01/14/21 02/28/21 History extended release carvedilol 6.25 mg tablet 6.25 mg PO BID 01/14/21 02/28/21 History cholecalciferol (vitamin D3) 25 25 mcg PO HS 01/14/21 02/28/21 History mcg (1,000 unit) capsule cyanocobalamin (vitamin B-12) 1,000 mcg PO HS 01/14/21 02/28/21 History 1,000 mcg capsule ezetimibe 10 mg tablet 10 mg PO QAM 01/14/21 02/28/21 History fluoxetine 40 mg capsule (Prozac) 40 mg PO QAM 01/14/21 02/28/21 History fluticasone propionate 50 2 spray INTRANASAL DAILY 01/14/21 02/28/21 History mcg/actuation nasal spray,suspension (Children's Flonase Allergy Relief) gabapentin 400 mg capsule 400 mg PO TID 01/14/21 02/28/21 History hydrochlorothiazide 25 mg tablet 25 mg PO QAM 01/14/21 02/28/21 History ketoconazole 2 % shampoo 1 applic TOPICAL Q14D 01/14/21 02/28/21 History lansoprazole 30 mg capsule,delayed 30 mg PO BID 01/14/21 02/28/21 History release hydrocodone bitartrate 10 mg 10 mg PO Q12H PRN 01/15/21 02/28/21 History capsule, oral only, extended rel 12 hr ibuprofen 200 mg tablet (Motrin IB) 200 mg PO Q6H PRN 01/15/21 02/28/21 History pseudoephedrine HCl 120 mg 120 mg PO Q12H PRN 01/15/21 02/28/21 History tablet,extended release (Sudafed 12 Hour) Patient History Medical History Acoustic neuroma Left ear Anxiety 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 intermittent migraines Depression GERD (gastroesophageal reflux disease) Herniated disc Lumbar/cervical > partially limitation cervical ROM per pt Hyperlipidemia Hypertension Obesity Osteoarthritis PTSD (post-traumatic stress disorder) Hx PTSD (work-related) Sleep apnea No device Spinal stenosis Surgical History H/O colonoscopy H/O excision of dermoid cyst H/O knee surgery Left x1, right x2 H/O shoulder surgery Right x2 History of anesthesia reaction Difficulty with anesthesia induction with prior colonoscopies per pt History of carpal tunnel release R/L History of esophagogastroduodenoscopy (EGD) + dilation History of tooth extraction Hx laparoscopic cholecystectomy (02/01/21) Laparoscopic cholecystectomy Dr. Lorenzo 02/01/2021 Family History Mother Colorectal cancer Father Diabetes Hypertension Social History Smoking Status: Never smoker Second Hand Exposure: No; Hx Alcohol Use: Yes Alcohol type: beer and hard liquor Hx Substance Use: No Preferred Language: Citizen Of [place] Communication Ability: Effective Speech Therapy Teacher Required: No Beliefs That Will Affect Care: None marital status: Current Living Situation: Spouse current occupational status: employed and retired How many Children do You have: 2 Other Information That Helps Us Care for You: No Feels Safe at Home: Yes Safety Concerns: Feels Safe At This Time during the past year weight has: remained stable Assistive Devices: None Review of Systems Review of Systems: Unable to obtain ROS from the pt. Physical Exam Constitutional: + ill appearing, + obese (mildly), + physical limitations (extremly weak, minimal ability to move his extremities) and cooperative; no acute distress (not currently sedated) Eyes: PERRL, conjunctivae normal, anicteric sclerae ENMT: external ear and nose normal, oropharynx normal Neck: trachea midline, no thyromegaly (Trach in place) Respiratory: Minimal aeration to the bases; resp via trach and ventilator Cardiovascular: Rate/Rhythm: regular rate and regular rhythm Extremities: + edema (mild, bilat hands, ankles/feet) Gastrointestinal (Abdomen): normal bowel sounds, soft, nontender, no hepatosplenomegaly Skin: no rashes, warm and dry Neurologic: Ext weak. Follows with eyes, attempts to respond verbally but speach is extremely quiet/garbles. Psychiatric: Orientation: alert and cooperative Eye Contact: good eye contact Lymphatic: no cervical or axillary lymphadenopathy Results & Data ([facility]) Vital Signs (Past 12 Hours) Vital Signs Temp Pulse Resp BP Pulse Ox 04/06/21 09:00 36.9 C 63 57 H 96 04/06/21 08:34 74 103/58 L 93 04/06/21 08:30 88 33 H 92 04/06/21 08:20 85 33 H 96 04/06/21 08:03 66 100/62 100 04/06/21 08:00 70 100 04/06/21 07:33 62 115/55 L 100 04/06/21 07:30 66 15 100 04/06/21 07:03 82 21 105/60 100 04/06/21 07:00 53 L 25 H 100 04/06/21 05:33 68 26 H 122/50 L 100 04/06/21 04:33 90 19 103/59 L 100 04/06/21 03:44 78 31 H 114/55 L 90 04/06/21 02:56 65 26 H 99 04/06/21 02:42 47 L 22 86/58 L 98 04/06/21 01:00 77 24 94/54 L 96 04/06/21 00:04 36.6 C 96/53 L 100 04/05/21 22:53 81 27 H 100 Laboratory Results WBC 13, Hb 7.9, Hct 25, Plts 628, Na 144, K 3.0, Cl 106, CO2 33, BUN 43, Cr 0.82, glucose 113. Diagnostic Findings CXR 04/06/21: 1. Lines and tubes as above. 2. Mildly progressed multifocal opacities suggestive of viral pneumonia. 3. Suspected trace soft tissue air within the right supraclavicular tissues redemonstrated. No pneumothorax.
--- NOTE | 2021-04-06 12:03 | Cardiology Progress Note ---
Date of Service April 06, 2021 Assessment & Plan (1) Atrial fibrillation: (2) Atrial flutter: (3) ARDS (adult respiratory distress syndrome): (4) Hypoxia: (5) Pneumonia due to COVID-19 virus: Plan: Telemetry reviewed. Atrial fibrillation at 60-90 bpm noted this am. Several 3 second pauses noted from 950 am to 10 am. Recent SBP in the 70s, however some SBPs of about 100 mm Hg. Continue amiodarone 200 mg BID via feeding tube Continue lovenox for anticoagulation. Admission and Anticipated Discharge Date Admission Date: March 01, 2021 Results & Data ([facility]) Vital Signs (Past 12 Hours) Vital Signs Temp Pulse Resp BP Pulse Ox 04/06/21 09:00 36.9 C 63 57 H 96 04/06/21 08:34 74 103/58 L 93 04/06/21 08:30 88 33 H 92 04/06/21 08:20 85 33 H 96 04/06/21 08:03 66 100/62 100 04/06/21 08:00 70 100 04/06/21 07:33 62 115/55 L 100 04/06/21 07:30 66 15 100 04/06/21 07:03 82 21 105/60 100 04/06/21 07:00 53 L 25 H 100 04/06/21 05:33 68 26 H 122/50 L 100 04/06/21 04:33 90 19 103/59 L 100 04/06/21 03:44 78 31 H 114/55 L 90 04/06/21 02:56 65 26 H 99 04/06/21 02:42 47 L 22 86/58 L 98 04/06/21 01:00 77 24 94/54 L 96 04/06/21 00:04 36.6 C 96/53 L 100
[2021-04-06] MEDS ORDERED: LORazepam 0.5 MG/1 ML VIAL IV ONE (12:12)
[2021-04-06] MEDS ORDERED: LORazepam 2 MG/4 ML VIAL ONE (12:17)
[2021-04-06] MEDS ORDERED: METOPROLOL TARTRATE 1 MG/ML VIAL IV ONE ×2 (12:37→12:42)
[2021-04-06] MEDS ORDERED: METOPROLOL TARTRATE 1 MG/ML VIAL IV PRN (12:52)
[2021-04-06] MEDS: LORazepam 2 MG/4 ML VIAL IV PRN ×2 (14:40→20:15)
[2021-04-06 15:52] LABS: BUN Creatinine Ratio 52.3 (10-20); Calcium 8.1 mg/dl (8.5-10.1); Creatinine Clr Calc Pharmacy 120.7 ml/min; Est GFR (African American) 110.8 ml/min; Est GFR (Non-African American) 95.6 ml/min; Potassium 3.7 mmol/L (3.5-5.1)
[2021-04-06] MEDS: PEPTAMEN INTENSE VHP 1.0 CAL 1,000 ML BAG OG SCH (17:07)
--- NOTE | 2021-04-06 18:05 | Hospitalist Progress Note ---
Date of Service April 06, 2021 delayed entry date of service 04/05/21 Assessment & Plan (1) Acute hypoxemic respiratory failure: Plan: per Dr. Tuttle's notes with addendum: Acute respiratory failure with hypoxia Multifocal COVID pneumonia COVID Screen: Positive 02/28/21 CTA:No CTA evidence for pulmonary embolus. Extensive groundglass opacities are present throughout both lungs characteristic of a viral type pneumonitis Completed dexamethasone 10 days course Got baricitinib given for 6 days but discontinued due to acute DVTs (03/06/21) Had completed abx with cefepime and doxycycline for 7 days Remdesivir discontinued by pulmonary service Was on HFNC and with worsening resp status, was put on NIV and subsequently intubated on 03/19/21 Tracheostomy 03/23, on MV Vent and sedation management per concrete tile machine operator, currenlty on propofol. Off on Nimbex today. Concern for developing fibrosis Finished azithro 03/24 and on dexamethasone ARDS protocol WBC fluctuating. Pt on Dexa ARDS protocol. Patient is having low-grade fever, 03/24 blood culture likely contaminant; 03/26 Bl Cx: NG so far. On Rocephin 03/26 --> changed to meropenem 03/30 (d/t sputum Cx growing GNB), On Caspofungin 03/29/21, management per ICU. 04/05/21 on precedex, s/p trach replacement sputum culture: (+) Serratia on Zosyn IV completed Dexamethasone protocol Lasix PRN mental status seems to be improving Deep venous thrombosis posterior tibial and peroneal veins In the setting of COVID-19 infection & baricitinib use Patient reports family history of blood clots Lovenox BID #. Aflutter w/ RVR bout of aflutter w/ rvr, cardioverted twice, bolused with amio twice, on amio drip. cardiology consulted 04/04/21 Digoxin held, on Verapamil- reduced to q8h on Lovenox Mild indirect bilirubinemia, elevated alk phos Resolved Liver ultrasound:The liver is normal in size and echogenicity. Incidental note is made of a small cyst within the liver. 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 of Systems Review of Systems: all noted and negative except for above Physical Exam Physical Exam: General- on precedex, breathing with no effort or accessory muscle use Eyes- anicteric Neck- no JVD trach in place: no bleeding, discharge Lungs- (+) mild rales anteriorly Heart- normal rate, regular rhythm; no murmurs Abdomen- normal bowel sounds, nondistended, soft, nontender Extremities- edema of extremities- mild Neuro- opens eyes, tries to converse, no other new focal deficits noted Skin- warm & dry Results & Data Results & Data ([facility]) Vital Signs (Past 12 Hours) Vital Signs Temp Pulse Resp BP Pulse Ox 04/06/21 15:16 93 H 44 H 95 04/06/21 15:00 37.3 C 04/06/21 14:00 88 48 H 95 04/06/21 13:33 85 45 H 89/61 L 97 04/06/21 13:30 84 31 H 95 04/06/21 13:03 115 H 37 H 95/69 L 94 04/06/21 13:00 139 H 39 H 93 04/06/21 12:45 139 H 34 H 93/67 L 95 04/06/21 12:42 168 H 100/78 04/06/21 12:40 149 H 43 H 100/78 93 04/06/21 12:38 178 H 110/72 04/06/21 12:34 169 H 42 H 110/68 90 04/06/21 12:30 159 H 47 H 92 04/06/21 12:24 170 H 53 H 86/72 L 95 04/06/21 12:00 175 H 35 H 95 04/06/21 11:55 150 H 47 H 92 04/06/21 11:30 38 H 04/06/21 11:03 91 H 25 H 93/56 L 99 04/06/21 11:00 86 14 98 04/06/21 10:49 71 25 H 83/51 L 99 04/06/21 10:33 93 H 38 H 86/43 L 99 04/06/21 10:30 91 H 33 H 100 04/06/21 10:14 69 22 73/43 L 04/06/21 10:07 73 31 H 82/44 L 98 04/06/21 10:04 88 33 H 55/44 L 04/06/21 10:00 58 L 32 H 100 04/06/21 09:30 55 L 25 H 97 04/06/21 09:04 70 29 H 88/50 L 95 04/06/21 09:00 36.9 C 63 57 H 96 04/06/21 08:34 74 103/58 L 93 04/06/21 08:30 88 33 H 92 04/06/21 08:20 85 33 H 96 04/06/21 08:03 66 100/62 100 04/06/21 08:00 70 100 04/06/21 07:33 62 115/55 L 100 04/06/21 07:30 66 15 100 04/06/21 07:03 82 21 105/60 100 04/06/21 07:00 53 L 25 H 100 all noted and reviewed including below
--- NOTE | 2021-04-06 18:08 | Hospitalist Progress Note ---
Date of Service April 06, 2021 Assessment & Plan (1) Acute hypoxemic respiratory failure: Plan: per Dr. Tuttle's notes with addendum: Acute respiratory failure with hypoxia Multifocal COVID pneumonia COVID Screen: Positive 02/28/21 CTA:No CTA evidence for pulmonary embolus. Extensive groundglass opacities are present throughout both lungs characteristic of a viral type pneumonitis Completed dexamethasone 10 days course Got baricitinib given for 6 days but discontinued due to acute DVTs (03/06/21) Had completed abx with cefepime and doxycycline for 7 days Remdesivir discontinued by pulmonary service Was on HFNC and with worsening resp status, was put on NIV and subsequently intubated on 03/19/21 Tracheostomy 03/23, on MV Vent and sedation management per furnace packer, alejandroeny on propofol. Off on Nimbex today. Concern for developing fibrosis Finished azithro 03/24 and on dexamethasone ARDS protocol WBC fluctuating. Pt on Dexa ARDS protocol. Patient is having low-grade fever, 03/24 blood culture likely contaminant; 03/26 Bl Cx: NG so far. On Rocephin 03/26 --> changed to meropenem 03/30 (d/t sputum Cx growing GNB), On Caspofungin 03/29/21, management per ICU. 04/06/21 s/p trach replacement 04/05/21 being weaned off precedex sputum culture: (+) Serratia on Zosyn IV completed Dexamethasone protocol Lasix PRN weaning off ventilator per Industrial Accountant service mental status improving started on Zyprexa Deep venous thrombosis posterior tibial and peroneal veins In the setting of COVID-19 infection & baricitinib use Patient reports family history of blood clots Lovenox BID #. Aflutter w/ RVR bout of aflutter w/ rvr, cardioverted twice, bolused with amio twice, on amio drip. cardiology consulted 04/06/21 Digoxin and Verapamil discontinued- transitioned to Amiodarone on Lovenox Mild indirect bilirubinemia, elevated alk phos Resolved Liver ultrasound:The liver is normal in size and echogenicity. Incidental note is made of a small cyst within the liver. Hypertension Antihypertensive on hold while on sedation Chronic back pain Patient plans to follow up with Neurosurgery as outpatient Mood disorder/PTSD DVT Px: Lovenox Full code Admission and Anticipated Discharge Date Admission Date: March 01, 2021 Subjective ff up for acute hypoxic respiratory failure, covid 19 pneumonia, s/p trach, etc on Precedex weaning, on mech vent patient awake, squeezes examiners fingers upon command not in distress no signs of pain no other issues per certified coding specialist of Systems Review of Systems: Unobtainable due to cognitive status and Unobtainable due to endotracheal tube Physical Exam Physical Exam: General- breathing no effort or accessory muscle use Eyes- anicteric Neck- no JVD trach in place: no bleeding, discharge Lungs- clear breath sounds bilaterally, anteriorly Heart- normal rate, regular rhythm; no murmurs Abdomen- normal bowel sounds, nondistended, soft, nontender Extremities- mild edema of all extremities, no calf tenderness Neuro- able to squeeze examiner's fingers with both hands; no new gross focal neurologic deficits Skin- warm & dry Results & Data Results & Data ([facility]) Vital Signs (Past 12 Hours) Vital Signs Temp Pulse Resp BP Pulse Ox 04/06/21 15:16 93 H 44 H 95 04/06/21 15:00 37.3 C 04/06/21 14:00 88 48 H 95 04/06/21 13:33 85 45 H 89/61 L 97 04/06/21 13:30 84 31 H 95 04/06/21 13:03 115 H 37 H 95/69 L 94 04/06/21 13:00 139 H 39 H 93 04/06/21 12:45 139 H 34 H 93/67 L 95 04/06/21 12:42 168 H 100/78 04/06/21 12:40 149 H 43 H 100/78 93 04/06/21 12:38 178 H 110/72 04/06/21 12:34 169 H 42 H 110/68 90 04/06/21 12:30 159 H 47 H 92 04/06/21 12:24 170 H 53 H 86/72 L 95 04/06/21 12:00 175 H 35 H 95 04/06/21 11:55 150 H 47 H 92 04/06/21 11:30 38 H 04/06/21 11:03 91 H 25 H 93/56 L 99 04/06/21 11:00 86 14 98 04/06/21 10:49 71 25 H 83/51 L 99 04/06/21 10:33 93 H 38 H 86/43 L 99 04/06/21 10:30 91 H 33 H 100 04/06/21 10:14 69 22 73/43 L 04/06/21 10:07 73 31 H 82/44 L 98 04/06/21 10:04 88 33 H 55/44 L 04/06/21 10:00 58 L 32 H 100 04/06/21 09:30 55 L 25 H 97 04/06/21 09:04 70 29 H 88/50 L 95 04/06/21 09:00 36.9 C 63 57 H 96 04/06/21 08:34 74 103/58 L 93 04/06/21 08:30 88 33 H 92 04/06/21 08:20 85 33 H 96 04/06/21 08:03 66 100/62 100 04/06/21 08:00 70 100 04/06/21 07:33 62 115/55 L 100 04/06/21 07:30 66 15 100 04/06/21 07:03 82 21 105/60 100 04/06/21 07:00 53 L 25 H 100 all noted and reviewed including below
[2021-04-07] MEDS: INSULIN ASPART PER UNIT SC SCH ×6 (00:33→20:55)
[2021-04-07] MEDS: TUBE FEEDING WATER FLUSH OG SCH ×6 (00:34→20:59)
[2021-04-07] MEDS: fentaNYL citrate 100 MCG/2 ML VIAL IV PRN ×3 (00:36→17:38)
[2021-04-07] MEDS: LORazepam 2 MG/4 ML VIAL IV PRN ×2 (02:08→14:17)
[2021-04-07] MEDS: oxyCODONE HCL IR 5 MG TAB (IMMEDIATE RELEASE) PO SCH ×3 (03:05→20:57)
[2021-04-07] MEDS: PIPERACILLIN/TAZOBACTAM 4.5 GM in DEXTROSE 5% 100 ML IV SCH ×3 (05:32→22:26)
[2021-04-07 05:59] LABS: BUN Creatinine Ratio 47.4 (10-20); Calcium 7.9 mg/dl (8.5-10.1); Creatinine Clr Calc Pharmacy 109.3 ml/min; Est GFR (African American) 101.9 ml/min; Est GFR (Non-African American) 87.9 ml/min; Magnesium 2.2 mg/dl (1.7-2.4); Phosphorus 3.4 mg/dl (2.5-4.9); Potassium 3.7 mmol/L (3.5-5.1)
[2021-04-07] MEDS: ICU ELECTROLYTE REPLACEMENT PROTOCOL SCH ×2 (06:42→15:32)
[2021-04-07] MEDS: SENNOSIDES 8.8 MG/5 ML UDC PO SCH (07:30)
[2021-04-07] MEDS: DOCUSATE SODIUM SYRUP 100 MG/10 ML UDC PO SCH ×2 (07:30→20:57)
--- NOTE | 2021-04-07 08:10 | Electrocardiogram Report ---
Test Reason : Blood Pressure : / mmHG Vent. Rate : 089 BPM Atrial Rate : 089 BPM P-R Int : 138 ms QRS Dur : 092 ms QT Int : 394 ms P-R-T Axes : 047 011 047 degrees QTc Int : 479 ms Normal sinus rhythm T-wave inversion in Anteroseptal leads Prolonged QT Abnormal ECG When compared with ECG of 30-MAR-2021 12:26, Sinus rhythm has replaced Atrial flutter Vent. rate has decreased BY 65 BPM Criteria for Septal infarct are no longer Present T-wave inversion in Anteroseptal leads now present Confirmed by Denzel Naranjo ([id number]) on 04/07/2021 8:09:43 AM Referred By: REFERRED SELF Confirmed By:Denzel Naranjo
--- NOTE | 2021-04-07 09:17 | Cardiology Progress Note ---
Date of Service April 07, 2021 Assessment & Plan (1) Atrial fibrillation: (2) Atrial flutter: (3) ARDS (adult respiratory distress syndrome): (4) Hypoxia: (5) Pneumonia due to COVID-19 virus: Plan: Telemetry reviewed. Received amiodarone 200 mg via NG tube am of 04/06/21, then when sedation reduced, AF rates increased from 60s to 150s. Received two doses of metoprolol 5 mg , in afternoon , and then at 13:20 converted to SR without conversion pause. Remains in sinus rhythm, 98-103 bpm. Lovenox on hold for PEG tube today. Continue amiodarone 200 mg BID. BP improved. Will consider adding back low dose metoprolol after PEG tube. Admission and Anticipated Discharge Date Admission Date: March 01, 2021 Subjective Patient seen. More alert this am , but not conversant. Still on full ventilator support. Physical Exam Constitutional: + ill appearing Cardiovascular: Rate/Rhythm: + irregularly irregular Heart Sounds: no murmur Extremities: no edema Results & Data ([facility]) Vital Signs (Past 12 Hours) Vital Signs Temp Pulse Resp BP Pulse Ox 04/07/21 06:00 93 H 37 H 131/64 97 04/07/21 05:30 91 H 27 H 135/68 97 04/07/21 04:00 36.8 C 94 H 33 H 129/67 94 04/07/21 03:27 94 H 33 H 94 04/07/21 03:00 108 H 41 H 129/64 92 04/07/21 02:00 103 H 27 H 134/65 98 04/07/21 01:03 109 H 20 126/70 98 04/07/21 00:03 36.6 C 100 H 25 H 121/62 98 04/06/21 23:04 98 H 22 97 04/06/21 23:03 103 H 41 H 121/65 97 04/06/21 22:03 102 H 25 H 131/57 L 97
--- NOTE | 2021-04-07 10:37 | Gastroenterology Progress Note ---
Date of Service April 07, 2021 Assessment & Plan (1) Dysphagia: Plan: Due to trach/ventilator. Will need care home nutritional support. Plan: Will go forward with EGD with PEG by Dr. Jones with my assistance this morning. Check EGD records when available for PEG tube instructions (but typically can be used for meds and flush a few hours after insertion and for feedings approx 24 hrs after insertion). Admission and Anticipated Discharge Date Admission Date: March 01, 2021 Supervising Physician Co-Signing Physician Notes Attg add: I interviewed and examined pt, reviewed chart and labs. Pt on Zosyn. Abd soft, ND. Plan for PEG. Subjective 60 yr old male pt admitted for COVID pneumonia/respiratory failure on 03/01 who has been mechanically ventilated. Trach placed 03/23. 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 He is currently on Zosyn and stable from a cardio/respiratory standpoint. Dr. Jones spoke with the pt's yesterday afternoon, obtaining informed consent. The pt's RN and I both spoke with the pt's by phone this morning at 9:45AM, verifying that she is the pt's NOK and that Dr. Jones did obtain informed consent yesterday. She understands that this is needed to go forward with transfer to LTAC and would like to proceed. NG tube feedings stopped at midnight. On Zosyn. Lovenox held 24 hrs. Review of Systems Review of Systems: Unable to obtain ROS from the pt. Physical Exam Constitutional: + ill appearing, + obese (mildly), + physical limitations (extremly weak, minimal ability to move his extremities) and cooperative; no acute distress (not currently sedated) Eyes: PERRL, conjunctivae normal, anicteric sclerae ENMT: external ear and nose normal, oropharynx normal Neck: trachea midline, no thyromegaly (Trach in place) Respiratory: normal respiratory effort (with trach/ventilator) minimal aeration of the mid and lower air field bilat ant/posterior Cardiovascular: Rate/Rhythm: regular rate and regular rhythm Extremities: + edema (mild, bilat hands, ankles/feet) Gastrointestinal (Abdomen): normal bowel sounds, soft, nontender, no hepatosplenomegaly Skin: no rashes, warm and dry Psychiatric: Orientation: alert and cooperative Eye Contact: good eye contact Lymphatic: no cervical or axillary lymphadenopathy Results & Data ([facility]) Vital Signs (Past 12 Hours) Vital Signs Temp Pulse Resp BP Pulse Ox 04/07/21 07:55 102 H 33 H 99 04/07/21 07:50 96 H 33 H 98 04/07/21 06:00 93 H 37 H 131/64 97 04/07/21 05:30 91 H 27 H 135/68 97 04/07/21 04:00 36.8 C 94 H 33 H 129/67 94 04/07/21 03:27 94 H 33 H 94 04/07/21 03:00 108 H 41 H 129/64 92 04/07/21 02:00 103 H 27 H 134/65 98 04/07/21 01:03 109 H 20 126/70 98 04/07/21 00:03 36.6 C 100 H 25 H 121/62 98 04/06/21 23:04 98 H 22 97 04/06/21 23:03 103 H 41 H 121/65 97 Laboratory Results Na 140, K 3.7, Cl 106, CO2 31, BUN 45, Cr 0.95. Diagnostic Findings CXR 04/06/21: 1. Lines and tubes as above. 2. Mildly progressed multifocal opacities suggestive of viral pneumonia. 3. Suspected trace soft tissue air within the right supraclavicular tissues re demonstrated. No pneumothorax.
[2021-04-07] MEDS ORDERED: PROPOFOL IV EMULSION 10 MG/ML 100 ML VIAL IV ONE (11:15)
--- NOTE | 2021-04-07 11:40 | GI REPORT ---
Patient Name: Jason Oscar Procedure Date: 04/07/2021 10:45 AM Date of : 1960 Admit Type: Inpatient Age: 60 Gender: Male Attending MD: Noah Jones MD Procedure: Upper GI endoscopy Providers: Noah Jones MD Referring MD: Luis Manuel Jameslievie Indications: Dysphagia Medicines: See the Anesthesia note for documentation of the administered medications Complications: No immediate complications. Estimated Blood Loss: Estimated blood loss: none. Procedure: Pre-Anesthesia Assessment: - ASA Grade Assessment: III - A patient with severe systemic disease. After obtaining informed consent, the endoscope was passed under direct vision. Throughout the procedure, the patient's blood pressure, pulse, and oxygen saturations were monitored continuously. The Endoscope was introduced through the mouth, and advanced to the second part of duodenum. The upper GI endoscopy was accomplished without difficulty. The patient tolerated the procedure well. Findings: THe esophagus was normal. The Z-line was found 40 cm from the incisors. The stomach was normal. The examined duodenum was normal. The patient was placed in the supine position for PEG placement. The stomach was insufflated to appose gastric and abdominal english. A site was located in the body of the stomach with excellent transillumination and manual external pressure for placement. The abdominal wall was marked and prepped in a sterile manner. The area was anesthetized with 5 mL of 0.5% lidocaine. The trocar needle was introduced through the abdominal wall and into the stomach under direct endoscopic view. A snare was introduced through the endoscope and opened in the gastric lumen. The guide wire was passed through the trocar and into the open snare. The snare was closed around the guide wire. The endoscope and snare were removed, pulling the wire out through the mouth. A skin incision was made at the site of needle insertion. The externally removable 20 Fr Armani-Cook gastrostomy tube was lubricated. The G-tube was tied to the guide wire and pulled through the mouth and into the stomach. The trocar needle was removed, and the gastrostomy tube was pulled out from the stomach through the skin. The external bumper was attached to the gastrostomy tube, and the tube was cut to remove the guide wire. The final position of the gastrostomy tube was confirmed by relook endoscopy, and skin marking noted to be 3.5 cm at the external bumper. The final tension and compression of the abdominal wall by the PEG tube and external bumper were checked and revealed that the bumper was moderately tight and mildly deforming the skin. The feeding tube was capped, and the tube site cleaned and dressed. Impression: - Z-line, 40 cm from the incisors. - Normal stomach. - Normal examined duodenum. - An externally removable PEG placement was successfully completed. Recommendation: - Discharge patient to other providers. - Please follow the post-PEG recommendations including: external bolster 1 cm from abdominal wall, change dressing once per day, remove dressing after 2 weeks, NPO x4 hrs then water today, may use PEG today for meds and water, may use PEG tomorrow for feedings and antibiotic ointment to site. Noah Jones M.D. Noah Jones MD 04/07/2021 11:40:29 AM This report has been signed electronically. Note Initiated On: 04/07/2021 10:45 AM Number of Addenda: 0 I attest to the content of the Intraoperative Record and orders documented therein, exceptions below {[id number]}
[2021-04-07] MEDS: GABAPENTIN 250 MG/5 ML 470 ML BTL PO SCH ×3 (12:06→21:04)
[2021-04-07] MEDS: AMIODARONE 200 MG TAB PO SCH ×2 (12:10→16:08)
[2021-04-07] MEDS: OLANZapine 5 MG TABLET PO SCH ×2 (12:10→20:58)
[2021-04-07] MEDS: PANTOprazole 40 MG in SYRINGE 0 ML IV SCH (12:10)
[2021-04-07] MEDS: POTASSIUM CHLORIDE 20 MEQ/15 ML UDC NG SCH ×2 (12:10→12:12)
--- NOTE | 2021-04-07 13:06 | Critical Care Progress Note ---
Date of Service April 07, 2021 Assessment & Plan (1) ARDS (adult respiratory distress syndrome): (2) Acute hypoxemic respiratory failure: (3) Pneumonia due to COVID-19 virus: Plan: Impression: 60-year-old male acute hypoxic respiratory failure secondary to COVID-19 pneumonia. Patient was admitted to the facility 03/01/2021. He was transferred to the ICU 03/19/2021 where he was intubated. Tracheostomy performed 03/23/2021 24-hour events: No acute events overnight. Patient underwent PEG tube placement this morning. We will continue to hold Lovenox for 24 hours post procedure and continue tube feeds 24 hours post procedure as well. Transfer to LTAC pending. Recommendations: Neuro: Continue oral oxycodone and Zyprexa Precedex weaned. Continue Neurontin for chronic back pain. Continue Prozac and Wellbutrin given prior history of PTSD/mood disorder. Will monitor QTC Resp: Intubated 03/19/2021, tracheostomy 03/23/2021. Trach exchanged 04/05 for XLT. Continue vent weaning process. Completed antibiotics as well as dexamethasone and baricitinib. Consult for LTAC. No evidence of recurrent pneumothorax. Hematoma around trach site appears stable. Continue to follow CV: A. fib/flutter with rapid ventricular response. Status post cardioversion. Appreciate cardiology consultation. Fully anticoagulated with Lovenox (currently being held for 24 hours for PEG placement). Blood pressures on the low side related to verapamil. Continue oral amiodarone. Currently rate controlled. If continued issues, may need to discuss ablation. ID: Fevers appear resolved. White count decreasing. Central lines out. Completing course of Zosyn for Serratia in sputum. Continue to follow clinically Renal: No current issues. Continue electrolyte replacement. Hypercalcemia appears resolved. Initiate ICU replacement protocol GI/Nutrition: Tube feeding per nutrition, currently on hold for 24 hours due to PEG tube placement. Can restart tomorrow morning. Continue bowel protocol Heme: DVTs: Lovenox on hold for PEG tube placement. Mild anemia. No indication for transfusion currently. Continue to trend. Endocrine: Glycemic control per protocol Full Code --Prophylaxis VTE: Therapeutic Lovenox on hold for PEG tube placement GI: Protonix twice daily Lines: Right arm PICC 03/29/2021, peripherals, positive Hernandez, positive trach 03/23/2021 Diet: Tube feeds Patient's Mellissa [phone] CRITICAL CARE TIME - I have personally spent 35 minutes of critical care time in the direct management of this patient. This is a life/limb threatening event. This includes time spent evaluating patient, direct bedside care, chart review, placing orders, interpretation of diagnostic studies, discussion with consultants, pat ient, and family members, as well as other required patient management activities. This time is exclusive of all separately billable procedures, and teaching time and separate from and in addition to any other critical care service time. Please note the above document was generated using voice recognition software. It may contain grammatical, syntax or spelling errors. Admission and Anticipated Discharge Date Admission Date: March 01, 2021 Supervising Physician Co-Signing Physician Notes Patient seen and independently examined. Seen and examined with nurse practitioner Tata. Discussed with bedside nurse and on multidisciplinary rounds. Discussed with GI consultants as well and with case management. The patient is making some progress. Continue to wean as tolerated. He is complaining of pain due to the sacral decubitus ulcer. We will continue his pain management strategy for now. PEG tube to be placed today. Will continue to work on transition to LTAC. Continuing pressure support ventilation trials as tolerated. PT and OT reordered. Will defer speech therapy as the patient's balloon is still inflated. Once he is able to proceed to trach collar, will need aggressive speech therapy as well. Review of Systems Review of Systems: Unobtainable due to endotracheal tube Physical Exam Constitutional: cooperative, comfortable and + mechanically ventilated Eyes: PERRL, conjunctivae normal, anicteric sclerae ENMT: external ear and nose normal, oropharynx normal Neck: trachea midline, no thyromegaly Tracheostomy midline, hematoma stable. Respiratory: Symmetrical chest wall movement. Rhonchi auscultated bilaterally in all lobes, lungs diminished in bases bilaterally. Cardiovascular: RRR, no murmur, no edema Heart Sounds: normal S1 and normal S2 Vessels: no JVD Gastrointestinal (Abdomen): normal bowel sounds, soft, nontender, no hepatosplenomegaly Musculoskeletal: no cyanosis or clubbing, extremities motor strength 5/5 Skin: Pressure ulcer sacrum Neurologic: PERRL, EOMI, accommodation nl, no face palsy, no dysarthria (Follows commands.) Psychiatric: Unable to assess due to tracheostomy/ventilator Genitourinary: Dwelling Hernandez catheter present Results & Data Results & Data ([facility]) Vital Signs (Past 12 Hours) Vital Signs Temp Pulse Pulse Resp BP BP Pulse Ox 04/07/21 11:54 93 H 39 H 99 04/07/21 11:52 87 31 H 114/70 99 04/07/21 11:50 81 29 H 108/66 04/07/21 11:48 87 48 H 108/72 99 04/07/21 11:46 82 22 114/59 L 04/07/21 11:44 85 22 113/59 L 99 04/07/21 11:42 82 22 112/57 L 99 04/07/21 11:40 83 22 107/56 L 04/07/21 11:38 83 22 109/57 L 99 04/07/21 11:36 85 22 104/53 L 04/07/21 11:34 86 22 108/55 L 99 04/07/21 11:32 89 22 105/55 L 99 04/07/21 11:30 90 22 105/57 L 04/07/21 11:28 96 H 0 L 116/74 99 04/07/21 11:26 99 H 22 117/71 100 04/07/21 11:24 87 26 H 103/69 04/07/21 11:22 88 23 119/63 89 L 04/07/21 11:20 82 19 130/64 86 L 04/07/21 11:18 89 44 H 92 04/07/21 11:16 108 H 21 92 04/07/21 11:14 93 H 35 H 99 04/07/21 11:12 90 31 H 98 04/07/21 11:10 91 H 41 H 99 04/07/21 11:08 93 H 33 H 100 04/07/21 11:06 37.2 C 91 H 91 H 30 H 140/64 140/64 91 04/07/21 11:04 92 H 28 H 98 04/07/21 11:02 97 H 32 H 100 04/07/21 11:00 89 30 H 127/65 100 04/07/21 10:58 94 H 37 H 98 04/07/21 10:56 96 H 37 H 100 04/07/21 10:54 93 H 29 H 100 04/07/21 10:45 93 H 31 H 98 04/07/21 07:55 102 H 33 H 99 04/07/21 07:50 96 H 33 H 98 04/07/21 06:00 93 H 37 H 131/64 97 04/07/21 05:30 91 H 27 H 135/68 97 04/07/21 04:00 36.8 C 94 H 33 H 129/67 94 04/07/21 03:27 94 H 33 H 94 04/07/21 03:00 108 H 41 H 129/64 92 04/07/21 02:00 103 H 27 H 134/65 98 Coding Level of Care Code Critical Care 1st 30-74 mins Diagnoses ARDS (adult respiratory distress syndrome) J80 Acute hypoxemic respiratory failure J96.01 Pneumonia due to COVID-19 virus U07.1; J12.82
--- NOTE | 2021-04-07 14:17 | Procedure Note ---
Procedure Note Date of Service April 07, 2021 Note Conscious sedation for PEG tube. Provider: Dr. Mcmanus Indication: Patient requiring PEG tube. Needs conscious sedation during procedure. Medications: 50 mL propofol, 100 mcg fentanyl Sedation start: 11 AM Sedation end: 11:30 AM Procedure: Conscious sedation was administered for this patient to assist in placement of a PEG tube. He has an existing tracheostomy tube and was on the ventilator. Vital signs were monitored. He is placed on high percent FiO2 on the ventilator. Small doses of intermittent propofol and fentanyl were used to achieve adequate sedation to allow for Dr. Jones to proceed with percutaneous endoscopic gastrostomy tube. Please see his procedure note. The patient tolerated the procedure well. No evidence of hemodynamic instability or ventilatory or oxygenation compromise during the procedure. He continued to be monitored by nursing post procedure. Coding CPT Codes Sedation/Anesthesia - Sedation/Anesthesia: 85406 Mod Sedation by the same physician;Init15 Min Child Age 5 & Up ([id number]) Sedation/Anesthesia - Sedation/Anesthesia: 44113 Mod Sedation by the same physician; Ea [id number] Minutes ([id number]) [facility] Procedure Codes (Charges) Sedation/Anesthesia Procedure 1: Sedation/Anesthesia: 77694 Mod Sedation by the same physician;Init15 Min Child Age 5 & Up Total Sedation Time (minutes): 30 Procedure 2: Sedation/Anesthesia: 16964 Mod Sedation by the same physician; Ea [id number] Minutes
--- NOTE | 2021-04-07 16:54 | Hospitalist Progress Note ---
Date of Service April 07, 2021 Assessment & Plan (1) Acute hypoxemic respiratory failure: (2) ARDS (adult respiratory distress syndrome): (3) Pneumonia due to COVID-19 virus: Plan: 2/2 covid pneumonia, remains on vent 2/2 ARDS. S/p trach and PEG. CTA-no evidence of PE. Completed dexamethasone 10 days course Got baricitinib given for 6 days but discontinued due to acute DVTs (03/06/21) Had completed abx with cefepime and doxycycline for 7 days Remdesivir discontinued by pulmonary service (4) Acute DVT (deep venous thrombosis): Plan: Deep venous thrombosis posterior tibial and peroneal veins In the setting of COVID-19 infection & baricitinib use Patient reported family history of blood clots Lovenox held post procedurally. (5) Atrial fibrillation: Plan: Per cardiology.....received amiodarone 200 mg via NG tube am of 04/06/21, then when sedation reduced, AF rates increased from 60s to 150s. Received two doses of metoprolol 5 mg , in afternoon , and then at 13:20 converted to SR without conversion pause. Remains in sinus rhythm. Lovenox on hold for PEG tube today. Continue amiodarone 200 mg BID. Cardiology with plans to add back metoprolol soon. Plan: Lovenox on hold Full Code Dispo-LTAC Heaven Castillo DO [facility] Hospitalist Admission and Anticipated Discharge Date Admission Date: March 01, 2021 Subjective 60 yo M admitted for acute respiratory failure 2/2 covid 19 pneumonia s/p trach and PEG this admission with PEG placed today. holding tube feeds and Lovenox for 24 hours post procedure He is unable to speak because of the trach He is squinting his eyes and not participating in any nonverbal communication he was able to follow instruction and squeeze my hand. Review of Systems Review of Systems: ROS could not be performed 2/2 trach and confusion Physical Exam Physical Exam: CONSTITUTIONAL: WNWD, vitals as above, NAD EYES: normal conjunctivae, no scleral icterus, ENT: external ear and nose normal, dry mucous membranes, crusting on lips, trach in place, vented. NECK: trachea midline RESPIRATORY: clear to auscultation bilaterally, no crackles, rales or wheezes, limited exam as patient is large and on vent, difficult to get behind him. CARDIOVASCULAR: regular rate and rhythm, S1 and 2 heard without murmurs, gallops or rubs, no JVD, trace peripheral edema, 1+ edema on right hand. CHEST: inspection of chest was normal GASTROINTESTINAL: soft, ND, no guarding, protuberant, some slight bruising. PEG in place, MUSCULOSKELETAL: appears to move all extremities equally, however, this is a limited assessment 2/2 vented and confused. SKIN: warm and dry NEUROLOGIC: CN 2-12 grossly intact, unable to speak 2/2 trach and vent. Appears confused. Could not assess orientation. Results & Data Results & Data ([facility]) Vital Signs (Past 12 Hours) Vital Signs Temp Pulse Pulse Resp BP BP Pulse Ox 04/07/21 14:45 82 28 H 99 04/07/21 11:54 93 H 39 H 99 04/07/21 11:52 87 31 H 114/70 99 04/07/21 11:50 81 29 H 108/66 04/07/21 11:48 87 48 H 108/72 99 04/07/21 11:46 82 22 114/59 L 04/07/21 11:44 85 22 113/59 L 99 04/07/21 11:42 82 22 112/57 L 99 04/07/21 11:40 83 22 107/56 L 04/07/21 11:38 83 22 109/57 L 99 04/07/21 11:36 85 22 104/53 L 04/07/21 11:34 86 22 108/55 L 99 04/07/21 11:32 89 22 105/55 L 99 04/07/21 11:30 90 22 105/57 L 04/07/21 11:28 96 H 0 L 116/74 99 04/07/21 11:26 99 H 22 117/71 100 04/07/21 11:24 87 26 H 103/69 04/07/21 11:22 88 23 119/63 89 L 04/07/21 11:20 82 19 130/64 86 L 04/07/21 11:18 89 44 H 92 04/07/21 11:16 108 H 21 92 04/07/21 11:14 93 H 35 H 99 04/07/21 11:12 90 31 H 98 04/07/21 11:10 91 H 41 H 99 04/07/21 11:08 93 H 33 H 100 04/07/21 11:06 37.2 C 91 H 91 H 30 H 140/64 140/64 91 04/07/21 11:04 92 H 28 H 98 04/07/21 11:02 97 H 32 H 100 04/07/21 11:00 89 30 H 127/65 100 04/07/21 10:58 94 H 37 H 98 04/07/21 10:56 96 H 37 H 100 04/07/21 10:54 93 H 29 H 100 04/07/21 10:45 93 H 31 H 98 04/07/21 07:55 102 H 33 H 99 04/07/21 07:50 96 H 33 H 98 04/07/21 06:00 93 H 37 H 131/64 97 04/07/21 05:30 91 H 27 H 135/68 97 Laboratory Results [facility] 04/07/21 04:43 Sodium 143 Potassium 3.7 Chloride 106 Carbon Dioxide 31 BUN 45 H Creatinine 0.95 Glucose 119 H Calcium 7.9 L Medications Administered Current Inpatient Medications Acetaminophen (Acetaminophen Susp 325 Mg/10.15 Ml Udc) 650 mg NG Q6H PRN PRN Reason: Fever or headache Stop: 05/01/21 15:28 Amiodarone HCl (Amiodarone 200 Mg Tab) 200 mg PO BID17 [facility] Stop: 05/05/21 16:59 Last Admin: 04/07/21 16:08 Dose: 200 mg Documented by: Bupropion HCl (Bupropion Hcl 100 Mg Tablet) 100 mg PO TID [facility] Stop: 04/22/21 13:59 Last Admin: 03/30/21 08:49 Dose: 100 mg Documented by: Docusate Sodium (Docusate Sodium Syrup 100 Mg/10 Ml Udc) 100 mg PO BID [facility] Stop: 04/24/21 09:44 Last Admin: 04/07/21 07:30 Dose: Not Given Documented by: Enoxaparin Sodium (Enoxaparin Inj 120 Mg/0.8 Ml Syr) 111 mg SQ Q12H [facility] Stop: 04/24/21 20:59 Last Admin: 04/06/21 07:56 Dose: 111 mg Documented by: Fentanyl Citrate (Fentanyl Citrate 100 Mcg/2 Ml Vial) 50 mcg IV Q2H PRN PRN Reason: pain Stop: 04/16/21 10:34 Last Admin: 04/07/21 03:05 Dose: 50 mcg Documented by: Gabapentin (Gabapentin 250 Mg/5 Ml 470 Ml Btl) 400 mg PO TID [facility] Stop: 04/23/21 08:59 Last Admin: 04/07/21 14:13 Dose: Not Given Documented by: Piperacillin Sod/Tazobactam (Sod 4.5 gm/ Dextrose) 120 mls @ 30 mls/hr IV Q8H [facility]; Protocol Stop: 04/07/21 23:59 Last Admin: 04/07/21 14:17 Dose: 30 mls/hr Documented by: Pantoprazole Sodium 40 mg/ (Syringe) 10 mls @ 5 mls/min IV QAM [facility] Stop: 05/07/21 08:59 Last Admin: 04/07/21 12:10 Dose: 5 mls/min Documented by: Lorazepam (Ativan) 2 mg in 4 mls @ 4 mls/min IV Q6 PRN PRN Reason: Anxiety Stop: 05/06/21 14:01 Last Admin: 04/07/21 14:17 Dose: 4 mls/min Documented by: Insulin Aspart (Insulin Aspart Per Unit) 0 units SC Q4 [facility] Stop: 04/24/21 11:59 Last Admin: 04/07/21 15:50 Dose: Not Given Documented by: Metoprolol Tartrate (Metoprolol Tartrate 1 Mg/Ml Vial) 5 mg IV Q5M PRN PRN Reason: Tachycardia Miscellaneous (Icu Electrolyte Replacement Protocol) 1 ea N/A BID@06,18 [facility]; Protocol Stop: 04/12/21 17:59 Last Admin: 04/07/21 15:32 Dose: 1 ea Documented by: Miscellaneous Information (Piperacill/Tazobac Consult Active) 1 ea N/A UD PRN PRN Reason: Consult Stop: 04/30/21 10:23 Miscellaneous Information (Pharmacy Glycemic Mgmt Consult) 1 ea N/A UD PRN PRN Reason: Consult Stop: 05/01/21 09:50 Nutritional Formula (Peptamen Intense Vhp 1.0 Nelson 1,000 Ml Bag) 1,000 ml OG UD [facility]; Protocol Stop: 05/05/21 11:14 Last Admin: 04/06/21 17:07 Dose: 1,000 ml Documented by: Olanzapine (Olanzapine 5 Mg Tablet) 5 mg PO BID [facility] Stop: 05/05/21 12:59 Last Admin: 04/07/21 12:10 Dose: 5 mg Documented by: Oxycodone HCl (Oxycodone Hcl Ir 5 Mg Tab (Immediate Release)) 10 mg PO Q8H [facility] Stop: 04/18/21 19:29 Last Admin: 04/07/21 12:09 Dose: 10 mg Documented by: Sennosides (Sennosides 8.8 Mg/5 Ml Udc) 17.6 mg PO QAM [facility] Stop: 04/22/21 08:59 Last Admin: 04/07/21 07:30 Dose: Not Given Documented by: Sterile Water (Tube Feeding Water Flush) 30 ml OG Q4H [facility] Stop: 04/20/21 15:59 Last Admin: 04/07/21 15:27 Dose: Not Given Documented by:
[2021-04-08] MEDS: INSULIN ASPART PER UNIT SC SCH ×6 (00:23→20:23)
[2021-04-08] MEDS: TUBE FEEDING WATER FLUSH OG SCH ×6 (00:24→20:11)
[2021-04-08] MEDS: LORazepam 2 MG/4 ML VIAL IV PRN ×2 (00:26→11:21)
[2021-04-08] MEDS: fentaNYL citrate 100 MCG/2 ML VIAL IV PRN (03:25)
[2021-04-08] MEDS: oxyCODONE HCL IR 5 MG TAB (IMMEDIATE RELEASE) PO SCH ×2 (04:20→11:21)
[2021-04-08 06:41] LABS: BUN Creatinine Ratio 38.8 (10-20); Creatinine Clr Calc Pharmacy 105.9 ml/min; Est GFR (African American) 98.1 ml/min; Est GFR (Non-African American) 84.6 ml/min; Magnesium 2.3 mg/dl (1.7-2.4); Phosphorus 3.2 mg/dl (2.5-4.9); Potassium 3.5 mmol/L (3.5-5.1)
[2021-04-08] MEDS: ICU ELECTROLYTE REPLACEMENT PROTOCOL SCH ×2 (06:59→18:01)
[2021-04-08] MEDS ORDERED: POTASSIUM CHLORIDE 20 MEQ/15 ML UDC PO STA ×2 (07:10→14:17)
[2021-04-08] MEDS: DOCUSATE SODIUM SYRUP 100 MG/10 ML UDC PO SCH ×2 (08:18→20:11)
[2021-04-08] MEDS: AMIODARONE 200 MG TAB PO SCH ×2 (08:18→16:56)
[2021-04-08] MEDS: OLANZapine 5 MG TABLET PO SCH ×2 (08:18→20:15)
[2021-04-08] MEDS: SENNOSIDES 8.8 MG/5 ML UDC PO SCH (08:19)
[2021-04-08] MEDS: PANTOprazole 40 MG in SYRINGE 0 ML IV SCH (08:19)
[2021-04-08] MEDS: GABAPENTIN 250 MG/5 ML 470 ML BTL PO SCH ×3 (08:20→20:15)
--- NOTE | 2021-04-08 10:51 | Communication Note ---
Date of Service: April 08, 2021 Telemetry and vital signs reviewed, reviewed recent progress with patient's nurse. Patient remains in sinus rhythm with rates in the range of 80 to 90 bpm. Tolerated PEG tube placement well yesterday. Blood pressures much improved, most recent measurement 138/80. Paroxysmal Atrial fibrillation / flutter: anticpate improvement in atrial arrhythmia burden as lungs improve. * Rhythm control: Amiodarone 200 mg two times per ( as noted benefits felt to outweight risk, perhaps short term 3 month course) * Add metoprolol tartrate 25 mg two times per day (this replaces outpatient treatment with carvedilol). * Full anticoagulation dose lovenox, had been on hold for PEG tube. Would recommend resuming anticoagulation for stroke prophylaxis and treatment of DVt noted 03/05/21, as well as for ongoing VTE prophylaxis. Can consider transition to Eliquis 5 mg two times perday at [facility]. I I have reached out to clinical pharmacy with regards to advice as to if this can be administered via PEG tube and if any dose adjustments necessary , or if there are concerns of reduced efficacy. Further research in progress.
[2021-04-08] MEDS: METOPROLOL TARTRATE 25 MG TAB PO SCH ×2 (11:21→20:13)
--- NOTE | 2021-04-08 12:02 | Gastroenterology Progress Note ---
Date of Service April 08, 2021 Assessment & Plan (1) Dysphagia: Plan: Due to trach/ventilator. Will need custodial nutritional support. Plan: May wash around site gently with soap/water, then redress. No dressing between the bumper and skin. Please apply antibiotic ointment around the base of the bumper. May use tube for meds, flushes and feeds. Feeding type/volume etc per dietitian. May restart Lovenox. GI will sign off. Admission and Anticipated Discharge Date Admission Date: March 01, 2021 Supervising Physician Co-Signing Physician Notes Attg add: I interviewed and examined pt, reviewed chart and labs. PEG bumper loosened, site looks well. OK to use. Recommendations as above. Please call with questions. 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 Pt unable to talk but follows with eyes. Review of Systems Review of Systems: Unable to obtain ROS from the pt. Physical Exam Constitutional: + ill appearing, + obese (mildly), + physical limitations (extremly weak, minimal ability to move his extremities) and cooperative; no acute distress (not currently sedated) Eyes: PERRL, conjunctivae normal, anicteric sclerae ENMT: external ear and nose normal, oropharynx normal Neck: trachea midline, no thyromegaly (Trach in place) Respiratory: normal respiratory effort (with trach/ventilator) Cardiovascular: Rate/Rhythm: regular rate and regular rhythm Extremities: + edema (mild, bilat hands, ankles/feet) Gastrointestinal (Abdomen): normal bowel sounds, soft, nontender, no hepatosplenomegaly PEG tube site inspected. Bumper was very snug - loosened to 3.5. Very minimal clotted blood at insertion site. No redness. No leaking around insertion site. Dressing was dry. Skin: no rashes, warm and dry Psychiatric: Orientation: alert and cooperative Eye Contact: good eye contact Lymphatic: no cervical or axillary lymphadenopathy Results & Data ([facility]) Vital Signs (Past 12 Hours) Vital Signs Pulse Resp BP Pulse Ox Pulse Ox 04/08/21 11:29 93 04/08/21 10:13 87 30 H 96 04/08/21 09:00 91 H 34 H 94 04/08/21 08:30 87 18 94 04/08/21 08:01 88 24 138/80 95 04/08/21 08:00 99 H 36 H 94 93 04/08/21 07:50 99 H 40 H 94 04/08/21 07:30 90 23 94 04/08/21 07:00 94 H 9 L 97 04/08/21 06:30 92 H 22 95 04/08/21 06:00 91 H 22 164/72 H 100 04/08/21 05:00 83 27 H 97 04/08/21 04:54 91 H 30 H 99 04/08/21 04:01 96 H 24 148/73 H 98 04/08/21 03:00 87 32 H 96 04/08/21 02:00 88 33 H 129/80 94 04/08/21 01:00 85 24 99 04/08/21 00:00 91 H 24 130/72 04/07/21 23:59 91 H Laboratory Results Na 144, K 3.5, Cl 107, BUN 38, Cr 0.98, glucose 110. Diagnostic Findings CTAP no acute abnormalities
[2021-04-08] MEDS: PEPTAMEN INTENSE VHP 1.0 CAL 1,000 ML BAG OG SCH (12:17)
--- NOTE | 2021-04-08 17:49 | Hospitalist Progress Note ---
Date of Service April 08, 2021 Assessment & Plan (1) Acute hypoxemic respiratory failure: (2) ARDS (adult respiratory distress syndrome): (3) Pneumonia due to COVID-19 virus: Plan: 2/2 covid pneumonia, remains on vent 2/2 ARDS. S/p trach and PEG. CTA-no evidence of PE. Completed dexamethasone 10 days course Got baricitinib given for 6 days but discontinued due to acute DVTs (03/06/21) Had completed abx with cefepime and doxycycline for 7 days Remdesivir discontinued by pulmonary service (4) Acute DVT (deep venous thrombosis): Plan: Deep venous thrombosis posterior tibial and peroneal veins In the setting of COVID-19 infection & baricitinib use Patient reported family history of blood clots Lovenox held post procedurally-restarted today (5) Atrial fibrillation: Plan: Sinus rhythm. Cont with amiodarone and metoprolol. Anticoagulation with Lovenox. (6) Anxiety: Plan: has h/o PTSD per records, exhibiting anxiety requiring ativan with good response per nurse and per . This is likely the reason for his somnolence today. Plan: Lovenox Full Code Dispo-LTAC, was at bedside and has been updated with his care plan. Heaven Castillo DO [facility] Ad[facility] and Anticipated Discharge Date Admission Date: March 01, 2021 Subjective 60 yo M admitted for acute respiratory failure 2/2 covid 19 pneumonia s/p trach and PEG this admission with PEG placed 1/12 Tube feeds restarted through PEG He is unable to speak because of the trach Not participating in any nonverbal communication Not following instructions and prefers to sleep at this time at bedside-she is updated CPAP/PSV trial this am for 45 minutes resumed vent 2/2 tachypnea thought 2/2 anxiety component Review of Systems Review of Systems: ROS could not be performed 2/2 trach and vent and lethargy Physical Exam Physical Exam: CONSTITUTIONAL: WNWD, vitals as above, somnolent. EYES: normal conjunctivae, no scleral icterus, ENT: external ear and nose normal, vented. NECK: trachea midline, tracheostomy in place RESPIRATORY: coarse breath sounds throughout,no rales or wheezes CARDIOVASCULAR: regular rate and rhythm, S1 and 2 heard without murmurs, gallops or rubs, no JVD, trace peripheral edema, 1+ edema on right hand. CHEST: inspection of chest was normal GASTROINTESTINAL: soft, ND, no guarding, protuberant, some slight bruising. PEG in place, MUSCULOSKELETAL: somnolent, unable to assess. SKIN: warm and dry NEUROLOGIC: CN 2-12 grossly intact, unable to speak 2/2 trach and vent. Appears confused. Could not assess orientation. Results & Data Results & Data ([facility]) Vital Signs (Past 12 Hours) Vital Signs Pulse Resp BP Pulse Ox Pulse Ox 04/08/21 16:30 70 26 H 98 04/08/21 16:00 69 25 H 118/53 L 97 04/08/21 15:43 71 23 98 04/08/21 15:30 68 15 96 04/08/21 15:00 96 H 21 93 04/08/21 14:30 99 H 33 H 90 04/08/21 14:00 83 26 H 124/82 91 04/08/21 13:30 66 36 H 98 04/08/21 13:00 61 22 100 04/08/21 12:30 66 19 94 04/08/21 12:00 115/62 04/08/21 11:30 77 17 90 04/08/21 11:29 93 04/08/21 11:00 91 H 27 H 88 L 04/08/21 10:30 84 38 H 87 L 04/08/21 10:13 87 30 H 96 04/08/21 10:00 79 23 136/65 04/08/21 09:30 83 19 95 04/08/21 09:00 91 H 34 H 94 04/08/21 08:30 87 18 94 04/08/21 08:01 88 24 138/80 95 04/08/21 08:00 99 H 36 H 94 93 04/08/21 07:50 99 H 40 H 94 04/08/21 07:30 90 23 94 04/08/21 07:00 94 H 9 L 97 04/08/21 06:30 92 H 22 95 04/08/21 06:00 91 H 22 164/72 H 100 Laboratory Results BMP 04/08/21 04:52 Sodium 144 Potassium 3.5 Chloride 107 Carbon Dioxide 29 BUN 38 H Creatinine 0.98 Glucose 107 H Calcium 8.0 L Medications Administered Current Inpatient Medications Acetaminophen (Acetaminophen Susp 325 Mg/10.15 Ml Udc) 650 mg NG Q6H PRN PRN Reason: Fever or headache Stop: 05/01/21 15:28 Amiodarone HCl (Amiodarone 200 Mg Tab) 200 mg PO BID17 [facility] Stop: 05/05/21 16:59 Last Admin: 04/08/21 16:56 Dose: 200 mg Documented by: Bupropion HCl (Bupropion Hcl 100 Mg Tablet) 100 mg PO TID [facility] Stop: 04/22/21 13:59 Last Admin: 03/30/21 08:49 Dose: 100 mg Documented by: Docusate Sodium (Docusate Sodium Syrup 100 Mg/10 Ml Udc) 100 mg PO BID [facility] Stop: 04/24/21 09:44 Last Admin: 04/08/21 08:18 Dose: 100 mg Documented by: Enoxaparin Sodium (Enoxaparin Inj 120 Mg/0.8 Ml Syr) 111 mg SQ Q12H [facility] Stop: 04/24/21 20:59 Last Admin: 04/06/21 07:56 Dose: 111 mg Documented by: Fentanyl Citrate (Fentanyl Citrate 100 Mcg/2 Ml Vial) 50 mcg IV Q2H PRN PRN Reason: pain Stop: 04/16/21 10:34 Last Admin: 04/08/21 03:25 Dose: 50 mcg Documented by: Gabapentin (Gabapentin 250 Mg/5 Ml 470 Ml Btl) 400 mg PO TID [facility] Stop: 04/23/21 08:59 Last Admin: 04/08/21 13:20 Dose: 400 mg Documented by: Pantoprazole Sodium 40 mg/ (Syringe) 10 mls @ 5 mls/min IV QAM [facility] Stop: 05/07/21 08:59 Last Admin: 04/08/21 08:19 Dose: 5 mls/min Documented by: Lorazepam (Ativan) 2 mg in 4 mls @ 4 mls/min IV Q6 PRN PRN Reason: Anxiety Stop: 05/06/21 14:01 Last Admin: 04/08/21 11:21 Dose: 4 mls/min Documented by: Insulin Aspart (Insulin Aspart Per Unit) 0 units SC Q4 [facility] Stop: 04/24/21 11:59 Last Admin: 04/08/21 15:35 Dose: Not Given Documented by: Metoprolol Tartrate (Metoprolol Tartrate 1 Mg/Ml Vial) 5 mg IV Q5M PRN PRN Reason: Tachycardia Metoprolol Tartrate (Metoprolol Tartrate 25 Mg Tab) 25 mg PO BID [facility] Stop: 05/08/21 10:59 Last Admin: 04/08/21 11:21 Dose: 25 mg Documented by: Miscellaneous (Icu Electrolyte Replacement Protocol) 1 ea N/A BID@06,18 [facility]; Protocol Stop: 04/12/21 17:59 Last Admin: 04/08/21 06:59 Dose: 1 ea Documented by: Miscellaneous Information (Pharmacy Glycemic Mgmt Consult) 1 ea N/A UD PRN PRN Reason: Consult Stop: 05/01/21 09:50 Nutritional Formula (Peptamen Intense Vhp 1.0 Nelson 1,000 Ml Bag) 1,000 ml OG UD [facility]; Protocol Stop: 05/05/21 11:14 Last Admin: 04/08/21 12:17 Dose: 1,000 ml Documented by: Olanzapine (Olanzapine 5 Mg Tablet) 5 mg PO BID [facility] Stop: 05/05/21 12:59 Last Admin: 04/08/21 08:18 Dose: 5 mg Documented by: Oxycodone HCl (Oxycodone Hcl Ir 5 Mg Tab (Immediate Release)) 10 mg PO Q8H [facility] Stop: 04/18/21 19:29 Last Admin: 04/08/21 11:21 Dose: 10 mg Documented by: Sennosides (Sennosides 8.8 Mg/5 Ml Udc) 17.6 mg PO QAM [facility] Stop: 04/22/21 08:59 Last Admin: 04/08/21 08:19 Dose: 17.6 mg Documented by: Sterile Water (Tube Feeding Water Flush) 30 ml OG Q4H [facility] Stop: 04/20/21 15:59 Last Admin: 04/08/21 15:36 Dose: 30 ml Documented by:
--- NOTE | 2021-04-08 18:25 | Critical Care Progress Note ---
Date of Service April 08, 2021 Assessment & Plan (1) ARDS (adult respiratory distress syndrome): (2) Acute hypoxemic respiratory failure: (3) Pneumonia due to COVID-19 virus: Plan: Impression: 60-year-old male acute hypoxic respiratory failure secondary to COVID-19 pneumonia. Patient was admitted to the facility 03/01/2021. He was transferred to the ICU 03/19/2021 where he was intubated. Tracheostomy performed 03/23/2021 24-hour events: Tolerated about 30 minutes of pressure support trials earlier today. He is currently somewhat sleepy currently. Hemodynamically stable. Apparently his insurance does not cover long-term acute care Recommendations: Neuro: Continue oral oxycodone and Zyprexa, will initiate de-escalation. Precedex weaned to off. Continue Neurontin for chronic back pain. Continue Prozac and Wellbutrin given prior history of PTSD/mood disorder. Will monitor QTC Resp: Intubated 03/19/2021, tracheostomy 03/23/2021. Trach exchanged 04/05 for XLT. Continue vent weaning process. Completed antibiotics as well as dexamethasone and baricitinib. Placement is going to be an issue secondary to payers. No evidence of recurrent pneumothorax. Hematoma around trach site appears stable. Continue to follow. Pressure support ventilation as tolerated CV: A. fib/flutter with rapid ventricular response. Status post cardioversion. Appreciate cardiology consultation. Fully anticoagulated with Lovenox. Continue amiodarone. Currently rate controlled and in sinus. Oral metoprolol as tolerated. If continued issues, may need to discuss ablation. ID: Fevers appear resolved. White count decreasing. Central lines out. Completed course of Zosyn for Serratia in sputum. Continue to follow clinically Renal: No current issues. Continue electrolyte replacement. Hypercalcemia appears resolved. Initiate ICU replacement protocol GI/Nutrition: Tube feeding per nutrition, currently on hold for 24 hours due to PEG tube placement. Can restart tomorrow morning. Continue bowel protocol Heme: DVTs: Lovenox, therapeutic. Mild anemia. No indication for transfusion currently. Continue to trend. Endocrine: Glycemic control per protocol Full Code Patient needs aggressive therapy. Working with PT and OT. Continue pressure support trials as tolerated. Anticipate the patient may have prolonged hospitalization due to issues with disposition. Continue ICU until the patient is able to tolerate trach collar --Prophylaxis VTE: Therapeutic Lovenox GI: Protonix twice daily Lines: Right arm PICC 03/29/2021, peripherals, positive Hernandez, positive trach 03/23/2021 Diet: Tube feeds Patient's Mellissa [phone] CRITICAL CARE TIME - I have personally spent 40 minutes of critical care time in the direct management of this patient. This is a life/limb threatening event. This includes time spent evaluating patient, direct bedside care, chart review, placing orders, interpretation of diagnostic studies, discussion with consultants, patient, and family members, as well as other required patient management activities. This time is exclusive of all separately billable procedures, and teaching time and separate from and in addition to any other critical care service time. Please note the above document was generated using voice recognition software. It may contain grammatical, syntax or spelling errors. Admission and Anticipated Discharge Date Admission Date: March 01, 2021 Subjective Patient seen and examined. He is somewhat more somnolent this evening. He tolerated trach collar trial for about 40 minutes this morning. Review of Systems Review of Systems: All systems reviewed & are unremarkable except as noted in Subjective Physical Exam Constitutional: WD/WN, vitals as above Neck: Trach site clean dry and intact Respiratory: normal respiratory effort; no respiratory distress, no labored breathing and not tachypneic Auscultation: + crackles and + wheezes Cardiovascular: RRR, no murmur, no edema Gastrointestinal (Abdomen): normal bowel sounds, soft, nontender, no hepatosplenomegaly PEG site looks good Musculoskeletal: Extremities: extremities normal to inspection Skin: no rashes, warm and dry Lymphatic: no cervical lymphadenopathy Results & Data Results & Data ([facility]) Vital Signs (Past 12 Hours) Vital Signs Pulse Resp BP Pulse Ox Pulse Ox 04/08/21 16:30 70 26 H 98 04/08/21 16:00 69 25 H 118/53 L 97 04/08/21 15:43 71 23 98 04/08/21 15:30 68 15 96 04/08/21 15:00 96 H 21 93 04/08/21 14:30 99 H 33 H 90 04/08/21 14:00 83 26 H 124/82 91 04/08/21 13:30 66 36 H 98 04/08/21 13:00 61 22 100 04/08/21 12:30 66 19 94 04/08/21 12:00 115/62 04/08/21 11:30 77 17 90 04/08/21 11:29 93 04/08/21 11:00 91 H 27 H 88 L 04/08/21 10:30 84 38 H 87 L 04/08/21 10:13 87 30 H 96 04/08/21 10:00 79 23 136/65 04/08/21 09:30 83 19 95 04/08/21 09:00 91 H 34 H 94 04/08/21 08:30 87 18 94 04/08/21 08:01 88 24 138/80 95 04/08/21 08:00 99 H 36 H 94 93 04/08/21 07:50 99 H 40 H 94 04/08/21 07:30 90 23 94 04/08/21 07:00 94 H 9 L 97 04/08/21 06:30 92 H 22 95 Critical Care Results & Data Vital Signs (Past 12 Hours) Vital Signs Pulse Resp BP Pulse Ox Pulse Ox 04/08/21 16:30 70 26 H 98 04/08/21 16:00 69 25 H 118/53 L 97 04/08/21 15:43 71 23 98 04/08/21 15:30 68 15 96 04/08/21 15:00 96 H 21 93 04/08/21 14:30 99 H 33 H 90 04/08/21 14:00 83 26 H 124/82 91 04/08/21 13:30 66 36 H 98 04/08/21 13:00 61 22 100 04/08/21 12:30 66 19 94 04/08/21 12:00 115/62 04/08/21 11:30 77 17 90 04/08/21 11:29 93 04/08/21 11:00 91 H 27 H 88 L 04/08/21 10:30 84 38 H 87 L 04/08/21 10:13 87 30 H 96 04/08/21 10:00 79 23 136/65 04/08/21 09:30 83 19 95 04/08/21 09:00 91 H 34 H 94 04/08/21 08:30 87 18 94 04/08/21 08:01 88 24 138/80 95 04/08/21 08:00 99 H 36 H 94 93 04/08/21 07:50 99 H 40 H 94 04/08/21 07:30 90 23 94 04/08/21 07:00 94 H 9 L 97 04/08/21 06:30 92 H 22 95 Lab & Micro Results (Past 24 Hours) No Data to Display Na 144 mmol/L (136-145) 04/08/21 K 3.5 mmol/L (3.5-5.1) 04/08/21 Cl 107 mmol/L (98-107) 04/08/21 CO2 29 mmol/L (21-32) 04/08/21 Anion Gap 8 (3-11) 04/08/21 BUN 38 mg/dl (6-23) H 04/08/21 Creatinine 0.98 mg/dl (0.6-1.4) 04/08/21 Estimated GFR ( Amer) 98.1 ml/min 04/08/21 Estimated GFR (Non-Af Amer) 84.6 ml/min 04/08/21 BUN/Creatinine Ratio 38.8 (10-20) H 04/08/21 Glu 107 mg/dl (70-99) H 04/08/21 Ca 8.0 mg/dl (8.5-10.1) L 04/08/21 Phosphorus Level 3.2 mg/dl (2.5-4.9) 04/08/21 Mg 2.3 mg/dl (1.7-2.4) 04/08/21 04:52 04/08/21 Calcium Level 8.0 mg/dl (8.5-10.1) L 04/08/21 04:52 04/08/21 I & O Totals 24 Hours 04/07/21 04/08/21 04/09/21 06:59 06:59 06:59 Intake Total 1568.43 / 1568.43 360 / 360 Output Total 851 / 851 875 / 875 525 / 525 Balance 717.43 / 717.43 -515 / -515 -525 / -525 Cumulative 02/28/21 20:05 thru 04/08/21 17:57 Intake Total 18763.618 Output Total 39632 Balance 4434.618 RT Ventilator Mngmt (Last Documented) Ventilator Ordered Settings Ventilator Support Mode PRVC 04/08/21 16:00 Respiratory Rate 26 04/08/21 16:30 Ventilator Tidal Volume 400 04/08/21 16:00 Setting Minute Ventilation 11.5 04/08/21 15:43 Ventilator Positive Pressure 12 04/08/21 08:00 Support Setting Positive End Expiratory 5 04/08/21 16:00 Pressure Fraction of Inspired Oxygen 30 04/08/21 16:00 Peak Inspiratory Flow 42 03/25/21 16:49 Machine Comment found on RR 04/07/21 14:45 Ventilator - PT Measurements Respiratory Rate 26 Exhaled Tidal Volume 369 Minute Ventilation 11.5 Peak Inspiratory Airway 25 Pressure Plateau Pressure 23.8 Respiratory Cycle Inspiratory: 1:1.5 Expiratory Ratio Inspiratory Phase Time 0.80 End-Tidal CO2 28 Static Lung Compliance 19.63 Dynamic Lung Compliance 18.45 Normal Static Lung Compliance 45.00 Patient Measurements Comment Pateint have peg placed Coding Level of Care Code Critical Care 1st 30-74 mins Diagnoses ARDS (adult respiratory distress syndrome) J80 Acute hypoxemic respiratory failure J96.01 Pneumonia due to COVID-19 virus U07.1; J12.82
[2021-04-08] MEDS: ENOXAPARIN INJ 120 MG/0.8 ML SYR SQ SCH (20:12)
[2021-04-08] MEDS ORDERED: oxyCODONE HCL IR 5 MG TAB (IMMEDIATE RELEASE) PO SCH (21:00)
[2021-04-09] MEDS: INSULIN ASPART PER UNIT SC SCH ×3 (00:09→09:57)
[2021-04-09] MEDS: TUBE FEEDING WATER FLUSH OG SCH ×6 (00:11→19:25)
[2021-04-09] MEDS: fentaNYL citrate 100 MCG/2 ML VIAL IV PRN ×4 (03:20→23:41)
[2021-04-09] MEDS ORDERED: LORazepam 0.5 MG/1 ML VIAL IV STA (03:31)
[2021-04-09] MEDS ORDERED: LORazepam 2 MG/4 ML VIAL ONE (03:34)
[2021-04-09 04:42] LABS: iSTAT Allen Test Pass; iSTAT Art Bld Gas pCO2 Correct 38 mmHg (35-46); iSTAT Art Bld Gas pH Corrected 7.469 (7.35-7.45); iSTAT Arterial Blood Gas HCO3 28 meg/L (19-24); iSTAT Arterial Blood Gas pCO2 38 mmHg (35-46); iSTAT Arterial Blood Gas pH 7.47 (7.35-7.45); iSTAT Arterial Blood Gas pO2 66 mmHg (80-95); iSTAT Arterial Blood Gas pO2 C 67; iSTAT Carbon Dioxide 29 mmol/L (24-31); iSTAT Hematocrit 20 % (42-52); iSTAT Hemoglobin 6.8 g/dl (14.0-18.0); iSTAT Potassium 3.4 mmol/L (3.3-5.0); iSTAT Site R Radial; iSTAT Sodium 142 mmol/L (135-144)
[2021-04-09 05:05] LABS: Basophils # (auto) 0.01 K/uL (0-0.2); Basophils % (auto) 0.1 %; Eosinophils # (auto) 0.18 K/uL (0-0.5); Hematocrit (blood only) 23.9 % (42-52); Hemoglobin 7.3 g/dL (14.0-18.0); Immature Granulocytes # (auto) 0.19 K/uL (0.00-0.02); Lymphocytes # (auto) 2.17 K/uL (1.2-3.4); Lymphocytes % (auto) 11.7 %; Mean Corpuscular Hemoglobin 29.2 pg (25-34); Mean Corpuscular Hgb Conc 30.5 g/dL (32-36); Mean Corpuscular Volume 95.6 fL (80-100); Mean Platelet Volume 9.4 fL (7.4-10.4); Monocytes # (auto) 0.97 K/uL (0.11-0.59); Monocytes % (auto) 5.2 %; Nucleated RBC # (auto) 0.04 K/uL (0-0); Nucleated RBC % (auto) 0.2 %; Platelet Count 600 K/uL (130-400); RDW Coefficient of Variation 16.1 % (11.5-14.5); White Blood Count 18.52 K/uL (4.8-10.8)
[2021-04-09 05:28] LABS: BUN Creatinine Ratio 40.8 (10-20); Calcium 7.7 mg/dl (8.5-10.1); Creatinine Clr Calc Pharmacy 136.6 ml/min; Est GFR (African American) 116.6 ml/min; Est GFR (Non-African American) 100.6 ml/min; Magnesium 2.3 mg/dl (1.7-2.4); Phosphorus 3.1 mg/dl (2.5-4.9); Potassium 3.8 mmol/L (3.5-5.1)
[2021-04-09 05:52] LABS: Polychromasia 1+
[2021-04-09] MEDS: ICU ELECTROLYTE REPLACEMENT PROTOCOL SCH ×2 (06:24→22:07)
[2021-04-09] MEDS: POTASSIUM CHLORIDE 20 MEQ/15 ML UDC PO SCH ×3 (06:27→22:33)
--- NOTE | 2021-04-09 08:04 | XRay Report ---
XR chest 1V portable CLINICAL HISTORY: Respiratory failure. COMPARISON STUDY: Chest radiograph April 06, 2021. FINDINGS: Tracheostomy tube and right PICC are in place. There is no pneumothorax or pleural effusion . Cardiomegaly is unchanged. Lung aeration is slightly improved. There are persistent bilateral airsp [place] opacities with interstitial thickening. IMPRESSION: 1. Bilateral airspace opacities suggestive of viral pneumonia. Interval improvement in lung aeration. 2. No pneumothorax. ACT 112: Negative or not required by law. Electronically signed by: Joseph Hurley M.D. 04/09/2021 8:03 AM
[2021-04-09] MEDS: DOCUSATE SODIUM SYRUP 100 MG/10 ML UDC PO SCH ×2 (08:10→20:05)
[2021-04-09] MEDS: oxyCODONE HCL SOLN 5 MG/5 ML UDC PO SCH ×2 (08:10→20:09)
[2021-04-09] MEDS: METOPROLOL TARTRATE 25 MG TAB PO SCH ×2 (08:11→20:07)
[2021-04-09] MEDS: OLANZapine 5 MG TABLET PO SCH ×2 (08:11→20:07)
[2021-04-09] MEDS: SENNOSIDES 8.8 MG/5 ML UDC PO SCH (08:11)
[2021-04-09] MEDS: ENOXAPARIN INJ 120 MG/0.8 ML SYR SQ SCH ×2 (08:11→20:05)
[2021-04-09] MEDS: AMIODARONE 200 MG TAB PO SCH ×2 (08:11→18:30)
[2021-04-09] MEDS: GABAPENTIN 250 MG/5 ML 470 ML BTL PO SCH ×3 (08:12→20:10)
[2021-04-09] MEDS: PANTOprazole 40 MG in SYRINGE 0 ML IV SCH (08:12)
[2021-04-09] MEDS ORDERED: LIDOCAINE 4% INH SOLN 4 ML BTL INH ONE (10:05)
--- NOTE | 2021-04-09 11:05 | Cardiology Progress Note ---
Date of Service April 09, 2021 Assessment & Plan (1) Atrial fibrillation: (2) Atrial flutter: (3) ARDS (adult respiratory distress syndrome): (4) Hypoxia: (5) Pneumonia due to COVID-19 virus: (6) Anemia: (7) PTSD (post-traumatic stress disorder): Plan: Prolonged hospital stay and ventilator course, hospital day 39 Patient follows with the undersigned as an outpatient due to his history of hypertension and dyslipidemia. 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 Atrial flutter first observed 03/29/2021, subsequently noted to have atrial fibrillation With occasional pauses noted. Treatment also limited by relative hypotension while in atrial flutter/atrial fibrillation. Received amiodarone 200 mg via NG tube am of 04/06/21, then when sedation reduced, AF rates increased from 60s to 150s with associated hypotension, de leon iting ability to make progress in terms of weaning ventilator support. Received two doses of metoprolol 5 mg , in afternoon , and then at 13:20 (04/06/2021) converted to SR without conversion pause. Remains in sinus rhythm, in the 60s, 04/09/2021 Post PEG tube, metoprolol tartrate 25 twice daily added to oral amiodarone 200 twice daily. No pauses, bradycardia, or recurrent hypotension while in sinus rhythm. Continue full dose subcutaneous Lovenox for stroke prophylaxis and treatment of DVT noted on 03/05/2022. Hemoglobin low, but relatively stable. It appears that ongoing treatment with full anticoagulation dose lovenox 111 mg SQ Q 12 may be most effective option in terms of anticoagulation effect and ease of administration without need for INR measurements. - Of the DOACs, Eliquis is likely the best option however bioavailability may be reduced when administerd via PEG tube. If transitioned to Eliquis, 5 mg two times per day , crushed tablet suspended in D5W, is preferred to mixing or flushing with nutrition supplement. With regards to his history of treatment with pseudoephedrine extended release, would avoid given atrial arrhythmias. With regards to his posttraumatic stress disorder, outpatient treatment with fluoxetine discontinued due to need for amiodarone treatment. Consider adding back bupropion (short acting formulation via PEG tube) as this does not interact with the amiodarone. As previously noted, amiodarone of course is not an ideal medication given the patient's SARS-CoV-2 pneumonia and hypoxia, but as per previous discussion between the undersigned and Dr. Mcmanus, benefits of short-term course are felt to outweigh the risk at present, with plans to perhaps complete a 3-month course of amiodarone and discontinue with anticipation that his atrial arrhythmia burden will decrease as his pulmonary status improves. Admission and Anticipated Discharge Date Admission Date: March 01, 2021 Subjective Patient seen and examined in ICU room 109. He remains on the mechanical ventilator, via his tracheostomy, FiO2 30%. Is responsive, shows me 2 fingers on command, and appears to recognize me. Telemetry reveals ongoing sinus rhythm in the 60s. Blood pressure stable. Review of Systems Review of Systems: Other (Comprehensive review of systems unobtainable as patient has tracheostomy.) Physical Exam Constitutional: no acute distress Neck: Tracheostomy in place, no apparent current drainage around site Cardiovascular: Rate/Rhythm: + irregularly irregular Heart Sounds: no murmur Extremities: no edema Gastrointestinal (Abdomen): PEG tube site inspected, no drainage, skin is nonerythematous Neurologic: Follows commands, shows me 2 fingers on both hands, moves toes spontaneously upon request. Genitourinary: Hernandez catheter in place draining clear yellow urine Results & Data ([facility]) Vital Signs (Past 12 Hours) Vital Signs Pulse Resp BP Pulse Ox 04/09/21 07:40 85 39 H 96 04/09/21 06:01 78 21 137/64 100 04/09/21 05:00 78 31 H 94 04/09/21 04:28 75 30 H 95 04/09/21 04:01 76 30 H 145/62 H 98 04/09/21 03:00 70 26 H 93 04/09/21 02:00 62 23 119/57 L 98 04/09/21 01:00 60 26 H 95 04/09/21 00:00 59 L 21 112/56 L 97 04/08/21 23:00 67 22 97 04/08/21 22:52 59 L 25 H 94 Laboratory Results CBC 04/09/21 Range/Units 04:32 WBC 18.52 H (4.8-10.8) K/uL RBC 2.50 L (4.7-6.1) M/uL Hgb 7.3 L (14.0-18.0) g/dL Hct 23.9 L (42-52) % Plt Count 600 H (130-400) K/uL Neut # (Auto) 15.00 H (1.4-6.5) K/uL Lymph # (Auto) 2.17 (1.2-3.4) K/uL [place] # (Auto) 0.97 H (0.11-0.59) K/uL Eos # (Auto) 0.18 (0-0.5) K/uL Baso # (Auto) 0.01 (0-0.2) K/uL Comprehensive Metabolic Panel 04/09/21 Range/Units 04:32 Sodium 141 (136-145) mmol/L Potassium 3.8 (3.5-5.1) mmol/L Chloride 109 H (98-107) mmol/L Carbon Dioxide 26 (21-32) mmol/L BUN 31 H (6-23) mg/dl Creatinine 0.76 (0.6-1.4) mg/dl Glucose 93 (70-99) mg/dl Calcium 7.7 L (8.5-10.1) mg/dl Intake and Output 04/08/21 04/09/21 04/09/21 22:59 06:59 14:59 Output Total 350 / 975 300 / 975 Balance -350 / -975 -300 / -975 Output: Urine Amount (Catheter) 350 / 975 300 / 975 Hernandez/Indwelling 350 / 975 300 / 975 Other: Weight 108 kg
--- NOTE | 2021-04-09 11:34 | Pharmacy Report ---
Pharmacy Glycemic Short Note 2 - Date of Service April 09, 2021 - Glycemic Short BSG Results (Last 24 hours): 04/08/21 04/08/21 04/08/21 15:33 20:09 23:26 Glucose POC Glucose 88 101 H 108 H 04/09/21 04/09/21 04/09/21 04:02 04:32 07:41 Glucose 93 POC Glucose 98 92 OUTPATIENT ANTIDIABETIC REGIMEN: * N/A * A1c = ? ASSESSMENT: 04/09 * TF restarted yesterday 24 hours after PEG placement, BSGs have been in the 90s without insulin. Will switch to q6H checks with regular insulin and loosen carb ratio for now, may need to d/c altogether. Will monitor as TF increase. 04/05: * Patient well controlled on novolog coverage alone over the past 24 hours. TF formula to change today, will monitor for any significant changes in BSG. 04/02 * BSGs reasonably well controlled over last 24 hrs. Phenylephrine has been weaned off. Novasource Renal tube feeds were held this am, but have been resumed and are currently running at 35cc/hr. Dexamethasone 2.5mg IV Q AM continues, however no further doses are ordered after tomorrow's dose. Will continue w/ current insulin doses another 24 hrs. 04/01 * Patient currently admitted to ICU for multiple medical issues. He was initially admitted for resp failure due to COVID19 viral pna. He remains vent dependent s/p trach. He is receiving abx for serratia VAP. Dexamethasone IV continues however the dose is being tapered (he received a lesser dose today vs yesterday). A flutter has led to initiation of verapamil IV along w/ pheny.ephrine for pressor support. He has been receiving Novasource Renal tube feeds at 20cc/hr continuous. * BSGs checked via iSTAT tend to be much higher than those checked with Accuchek. iSTAT is preferred while receiving pressors. * Will adjust Novolog regimen to allow for greater doses to cover carbs in continous tube feeds. Will change base solution of pressors to NS to minimize IV dextrose. Will give a single dose of Lantus x 1 today. PLAN FOR INPATIENT GLYCEMIC CONTROL: * Basal insulin * none * Bolus insulin * Regular per scale Q 6 hrs * Goal Range: Low 110 mg/dL - High 140 mg/dL * Correction Factor: 20 mg/dL/unit * Nutritional / Prandial insulin per carb ratio of 1 unit per 12 grams CHO consumed PLAN FOR DISCHARGE: * to be determined
[2021-04-09] MEDS ORDERED: MIDAZOLAM HCL 1 MG/ML 2ML VIAL IV STA (11:48)
[2021-04-09] MEDS: INSULIN HUMAN REGULAR SC SCH ×2 (13:21→18:09)
[2021-04-09] MEDS: buPROPion HCl 100 MG TABLET PO SCH ×2 (14:57→20:04)
--- NOTE | 2021-04-09 16:28 | Critical Care Progress Note ---
Date of Service April 09, 2021 Assessment & Plan (1) ARDS (adult respiratory distress syndrome): (2) Acute hypoxemic respiratory failure: (3) Pneumonia due to COVID-19 virus: Plan: Impression: 60-year-old male acute hypoxic respiratory failure secondary to COVID-19 pneumonia. Patient was admitted to the facility 03/01/2021. He was transferred to the ICU 03/19/2021 where he was intubated. Tracheostomy performed 03/23/2021 24-hour events: No acute events overnight. Continues to tolerate intermittent bouts of pressure support ventilation Recommendations: Neuro: Continue oral oxycodone and Zyprexa, will initiate de-escalation. Precedex weaned to off. Continue Neurontin for chronic back pain. Restart Prozac and Wellbutrin given prior history of PTSD/mood disorder. Will monitor QTC Resp: Intubated 03/19/2021, tracheostomy 03/23/2021. Trach exchanged 04/05 for XLT. Continue vent weaning process. Completed antibiotics as well as dexamethasone and baricitinib. Placement is going to be an issue secondary to payers. No evidence of recurrent pneumothorax. Continue to follow. Pressure support ventilation as tolerated CV: A. fib/flutter with rapid ventricular response. Status post cardioversion. Appreciate cardiology consultation. Fully anticoagulated with Lovenox. Continue amiodarone. Currently rate controlled and in sinus. Oral metoprolol as tolerated. If continued issues, may need to discuss ablation. ID: Fevers appear resolved. White count decreasing. Central lines out. Completed course of Zosyn for Serratia in sputum. Continue to follow clinically Renal: No current issues. Continue electrolyte replacement. Hypercalcemia appears resolved. Initiate ICU replacement protocol GI/Nutrition: Tube feeding per nutrition, currently on hold for 24 hours due to PEG tube placement. Can restart tomorrow morning. Continue bowel protocol Heme: DVTs: Lovenox, therapeutic. Mild anemia. No indication for transfusion currently. Continue to trend. Endocrine: Glycemic control per protocol Full Code Patient needs aggressive therapy. Working with PT and OT. Continue pressure support trials as tolerated. Anticipate the patient may have prolonged hos pitalization due to issues with disposition. Continue ICU until the patient is able to tolerate trach collar --Prophylaxis VTE: Therapeutic Lovenox GI: Protonix twice daily Lines: Right arm PICC 03/29/2021, peripherals, positive Hernandez, positive trach 03/23/2021 Diet: Tube feeds Patient's Mellissa [phone] CRITICAL CARE TIME - I have personally spent 36 minutes of critical care time in the direct management of this patient. This is a life/limb threatening event. This includes time spent evaluating patient, direct bedside care, chart review, placing orders, interpretation of diagnostic studies, discussion with consultants, patient, and family members, as well as other required patient management activities. This time is exclusive of all separately billable procedures, and teaching time and separate from and in addition to any other critical care service time. Please note the above document was generated using voice recognition software. It may contain grammatical, syntax or spelling errors. Admission and Anticipated Discharge Date Admission Date: March 01, 2021 Subjective Seen and examined. tolerating PSV intermitently. Review of Systems Review of Systems: All systems reviewed & are unremarkable except as noted in Subjective Physical Exam Constitutional: WD/WN, vitals as above Neck: trachea midline, no thyromegaly Respiratory: normal respiratory effort; no respiratory distress, no labored breathing and not tachypneic Auscultation: + crackles and + wheezes Cardiovascular: RRR, no murmur, no edema Gastrointestinal (Abdomen): normal bowel sounds, soft, nontender, no hepatosplenomegaly Musculoskeletal: Extremities: extremities normal to inspection Skin: no rashes, warm and dry Lymphatic: no cervical lymphadenopathy Results & Data Results & Data ([facility]) Vital Signs (Past 12 Hours) Vital Signs Pulse Pulse Resp BP Pulse Ox 04/09/21 14:40 79 48 H 93 04/09/21 12:00 73 47 H 126/56 L 88 L 04/09/21 11:35 103 H 40 H 94 04/09/21 11:19 71 38 H 96 04/09/21 11:13 71 38 H 96 04/09/21 11:00 69 38 H 96 04/09/21 10:00 66 44 H 138/66 98 04/09/21 09:00 69 38 H 99 04/09/21 08:00 79 24 138/65 98 04/09/21 07:40 85 39 H 96 04/09/21 07:00 83 33 H 98 04/09/21 06:01 78 21 137/64 100 04/09/21 05:00 78 31 H 94 04/09/21 04:28 75 30 H 95 Critical Care Results & Data Vital Signs (Past 12 Hours) Vital Signs Pulse Pulse Resp BP Pulse Ox 04/09/21 14:40 79 48 H 93 04/09/21 12:00 73 47 H 126/56 L 88 L 04/09/21 11:35 103 H 40 H 94 04/09/21 11:19 71 38 H 96 04/09/21 11:13 71 38 H 96 04/09/21 11:00 69 38 H 96 04/09/21 10:00 66 44 H 138/66 98 04/09/21 09:00 69 38 H 99 04/09/21 08:00 79 24 138/65 98 04/09/21 07:40 85 39 H 96 04/09/21 07:00 83 33 H 98 04/09/21 06:01 78 21 137/64 100 04/09/21 05:00 78 31 H 94 Lab & Micro Results (Past 24 Hours) RBC 2.50 M/uL (4.7-6.1) L 04/09/21 WBC 18.52 K/uL (4.8-10.8) H 04/09/21 Hgb 7.3 g/dL (14.0-18.0) L 04/09/21 Hct 23.9 % (42-52) L 04/09/21 MCV 95.6 fL (80-100) 04/09/21 MCH 29.2 pg (25-34) 04/09/21 MCHC 30.5 g/dL (32-36) L 04/09/21 RDW Standard Deviation 52.0 fL (36.4-46.3) H 04/09/21 RDW Coefficient of Variation 16.1 % (11.5-14.5) H 04/09/21 Plt Count 600 K/uL (130-400) H 04/09/21 MPV 9.4 fL (7.4-10.4) 04/09/21 Nucleated Red Blood Cells % (auto) 0.2 % 04/09/21 Nucleated RBC Absolute Count (auto) 0.04 K/uL (0-0) H 04/09/21 Neutrophils (%) (Auto) 81.0 % 04/09/21 Lymphocytes (%) (Auto) 11.7 % 04/09/21 Monocytes # (Auto) 0.97 K/uL (0.11-0.59) H 04/09/21 Eosinophils # (Auto) 0.18 K/uL (0-0.5) 04/09/21 Immature Granulocyte % (Auto) 1.0 % 04/09/21 Neutrophils # (Auto) 15.00 K/uL (1.4-6.5) H 04/09/21 Lymphocytes # (Auto) 2.17 K/uL (1.2-3.4) 04/09/21 Monocytes # (Auto) 0.97 K/uL (0.11-0.59) H 04/09/21 Eosinophils # (Auto) 0.18 K/uL (0-0.5) 04/09/21 Basophils # (Auto) 0.01 K/uL (0-0.2) 04/09/21 Immature Granulocyte # (Auto) 0.19 K/uL (0.00-0.02) H 04/09/21 Polychromasia 1+ 04/09/21 Na 141 mmol/L (136-145) 04/09/21 K 3.8 mmol/L (3.5-5.1) 04/09/21 Cl 109 mmol/L (98-107) H 04/09/21 CO2 26 mmol/L (21-32) 04/09/21 Anion Gap 6 (3-11) 04/09/21 BUN 31 mg/dl (6-23) H 04/09/21 Creatinine 0.76 mg/dl (0.6-1.4) 04/09/21 Estimated GFR ( Amer) 116.6 ml/min 04/09/21 Estimated GFR (Non-Af Amer) 100.6 ml/min 04/09/21 BUN/Creatinine Ratio 40.8 (10-20) H 04/09/21 Glu 93 mg/dl (70-99) 04/09/21 Ca 7.7 mg/dl (8.5-10.1) L 04/09/21 Phosphorus Level 3.1 mg/dl (2.5-4.9) 04/09/21 Mg 2.3 mg/dl (1.7-2.4) 04/09/21 04:32 04/09/21 Calcium Level 7.7 mg/dl (8.5-10.1) L 04/09/21 04:32 04/09/21 Rafa Test Pass 04/09/21 04:29 04/09/21 Diagnostic Findings (Past 24 Hours) Chest X-Ray 04/09/21 07:00 XR chest 1V portable CLINICAL HISTORY: Respiratory failure. COMPARISON STUDY: Chest radiograph April 06, 2021. FINDINGS: Tracheostomy tube and right PICC are in place. There is no pneumothorax or pleural effusion. Cardiomegaly is unchanged. Lung aeration is slightly improved. There are persistent bilateral airspace opacities with interstitial thickening. IMPRESSION: 1. Bilateral airspace opacities suggestive of viral pneumonia. Interval improvement in lung aeration. 2. No pneumothorax. ACT 112: Negative or not required by law. Electronically signed by: Joseph Hurley M.D. 04/09/2021 8:03 AM I & O Totals 24 Hours 04/08/21 04/09/21 04/10/21 06:59 06:59 06:59 Intake Total 360 / 360 Output Total 875 / 875 975 / 975 Balance -515 / -515 -975 / -975 Cumulative 02/28/21 20:05 thru 04/09/21 05:07 Intake Total 32263.618 Output Total 24684 Balance 5804.618 RT Ventilator Mngmt (Last Documented) Ventilator Ordered Settings Ventilator Support Mode [facility] 04/09/21 14:40 Respiratory Rate 48 04/09/21 14:40 Ventilator Tidal Volume 400 04/09/21 14:40 Setting Minute Ventilation 22 04/09/21 14:40 Ventilator Positive Pressure 12 04/09/21 11:19 Support Setting Positive End Expiratory 5 04/09/21 14:40 Pressure Fraction of Inspired Oxygen 45 04/09/21 14:40 Peak Inspiratory Flow 42 03/25/21 16:49 Machine Comment found on RR 22 04/07/21 14:45 Ventilator - PT Measurements Respiratory Rate 48 Exhaled Tidal Volume 375 Minute Ventilation 22 Peak Inspiratory Airway 28 Pressure Plateau Pressure 22 Respiratory Cycle Inspiratory: 1:2.1 Expiratory Ratio Inspiratory Phase Time 0.80 End-Tidal CO2 28 Static Lung Compliance 22.06 Dynamic Lung Compliance 16.30 Normal Static Lung Compliance 44.00 Patient Measurements Comment Back to [facility] at this time. Pt anxious and coughing continuously. Increased RR and low SPO2 . Coding Level of Care Code Critical Care 1st 30-74 mins Diagnoses ARDS (adult respiratory distress syndrome) J80 Acute hypoxemic respiratory failure J96.01 Pneumonia due to COVID-19 virus U07.1; J12.82 Time Spent (min) 36
--- NOTE | 2021-04-09 17:54 | Hospitalist Progress Note ---
Date of Service April 09, 2021 Assessment & Plan (1) Acute hypoxemic respiratory failure: (2) ARDS (adult respiratory distress syndrome): (3) Pneumonia due to COVID-19 virus: Plan: 2/2 covid pneumonia, remains on vent 2/2 ARDS. S/p trach and PEG. CTA-no evidence of PE. Remdesivir discontinued by pulmonary service Completed dexamethasone 10 days course Baricitinib given for 6 days but discontinued due to acute DVTs (03/06/21) Had completed abx with cefepime and doxycycline for 7 days in Dec Received an additional 7 day course of Zosyn for serratia in the sputum-early Mar (4) Acute DVT (deep venous thrombosis): Plan: Deep venous thrombosis posterior tibial and peroneal veins Likely provoked by COVID-19 infection & baricitinib use Patient reported family history of blood clots Lovenox held post procedurally-restarted today (5) Atrial fibrillation: Plan: Sinus rhythm. Cont with amiodarone and metoprolol. Anticoagulation with Lovenox. (6) Anxiety: Plan: has h/o PTSD per records, exhibiting anxiety requiring ativan with good response per nurse and per . This is likely the reason for his somnolence today. Plan: Lovenox Full Code Dispo-LTAC Heaven Castillo DO [facility] Hospitalist Admission and Anticipated Discharge Date Admission Date: March 01, 2021 Subjective 60 yo M admitted for acute respiratory failure 2/2 covid 19 pneumonia s/p trach and PEG this admission with PEG placed 1/12 Tube feeds running at goal Appears more oriented today participating in some nonverbal communication CPAP trial this am stopped 2/2 tachypnea. Review of Systems Review of Systems: Denies any pain or difficulty breathing. All other systems were reviewed and negative except as indicated above. Physical Exam Physical Exam: CONSTITUTIONAL: WNWD, vitals as above, NAD EYES: normal conjunctivae, no scleral icterus, ENT: external ear and nose normal, vented. NECK: trachea midline, tracheostomy in place RESPIRATORY: coarse breath sounds throughout,no rales or wheezes CARDIOVASCULAR: regular rate and rhythm, S1 and 2 heard without murmurs, gallops or rubs, no JVD, trace peripheral edema, 1+ edema on right hand. CHEST: inspection of chest was normal GASTROINTESTINAL: soft, ND, no guarding, protuberant, some slight bruising. PEG in place MUSCULOSKELETAL: generalized weakness, moves all extremities equally. SKIN: warm and dry NEUROLOGIC: CN 2-12 grossly intact, No gross focal deficit. Results & Data Results & Data ([facility]) Vital Signs (Past 12 Hours) Vital Signs Pulse Pulse Resp BP Pulse Ox 04/09/21 14:40 79 48 H 93 04/09/21 12:00 73 47 H 126/56 L 88 L 04/09/21 11:35 103 H 40 H 94 04/09/21 11:19 71 38 H 96 04/09/21 11:13 71 38 H 96 04/09/21 11:00 69 38 H 96 04/09/21 10:00 66 44 H 138/66 98 04/09/21 09:00 69 38 H 99 04/09/21 08:00 79 24 138/65 98 04/09/21 07:40 85 39 H 96 04/09/21 07:00 83 33 H 98 04/09/21 06:01 78 21 137/64 100 Laboratory Results Short CBC 04/09/21 Range/Units 04:32 WBC 18.52 H (4.8-10.8) K/uL Hgb 7.3 L (14.0-18.0) g/dL Hct 23.9 L (42-52) % Plt Count 600 H (130-400) K/uL BMP 04/09/21 04:32 Sodium 141 Potassium 3.8 Chloride 109 H Carbon Dioxide 26 BUN 31 H Creatinine 0.76 Glucose 93 Calcium 7.7 L Diagnostic Findings Chest X-Ray 04/09/21 07:00 XR chest 1V portable CLINICAL HISTORY: Respiratory failure. COMPARISON STUDY: Chest radiograph April 06, 2021. FINDINGS: Tracheostomy tube and right PICC are in place. There is no pneumothora x or pleural effusion. Cardiomegaly is unchanged. Lung aeration is slightly improved. There are persistent bilateral airspace opacities with interstitial thickening. IMPRESSION: 1. Bilateral airspace opacities suggestive of viral pneumonia. Interval improvement in lung aeration. 2. No pneumothorax. ACT 112: Negative or not required by law. Electronically signed by: Joseph Hurley M.D. 04/09/2021 8:03 AM Medications Administered Current Inpatient Medications Acetaminophen (Acetaminophen Susp 325 Mg/10.15 Ml Udc) 650 mg NG Q6H PRN PRN Reason: Fever or headache Stop: 05/01/21 15:28 Amiodarone HCl (Amiodarone 200 Mg Tab) 200 mg PO BID17 [facility] Stop: 05/05/21 16:59 Last Admin: 04/09/21 08:11 Dose: 200 mg Documented by: Bupropion HCl (Bupropion Hcl 100 Mg Tablet) 100 mg PO TID [facility] Stop: 04/22/21 13:59 Last Admin: 04/09/21 14:57 Dose: 100 mg Documented by: Docusate Sodium (Docusate Sodium Syrup 100 Mg/10 Ml Udc) 100 mg PO BID [facility] Stop: 04/24/21 09:44 Last Admin: 04/09/21 08:10 Dose: 100 mg Documented by: Enoxaparin Sodium (Enoxaparin Inj 120 Mg/0.8 Ml Syr) 111 mg SQ Q12H [facility] Stop: 04/24/21 20:59 Last Admin: 04/09/21 08:11 Dose: 111 mg Documented by: Fentanyl Citrate (Fentanyl Citrate 100 Mcg/2 Ml Vial) 50 mcg IV Q2H PRN PRN Reason: pain Stop: 04/16/21 10:34 Last Admin: 04/09/21 14:56 Dose: 50 mcg Documented by: Gabapentin (Gabapentin 250 Mg/5 Ml 470 Ml Btl) 400 mg PO TID [facility] Stop: 04/23/21 08:59 Last Admin: 04/09/21 14:58 Dose: 400 mg Documented by: Guaifenesin/Codeine Phosphate (Guaifenesin/Codeine 100mg/10mg 5ml Udc) 5 ml PO Q6H PRN PRN Reason: Cough Stop: 05/09/21 14:24 Insulin Human Regular (Insulin Human Regular) 0 units SC Q6 [facility] Stop: 05/09/21 11:59 Last Admin: 04/09/21 13:21 Dose: Not Given Documented by: Lansoprazole (Lansoprazole 30 Mg Soltab) 30 mg NG DAILY [facility] Stop: 05/10/21 08:59 Metoprolol Tartrate (Metoprolol Tartrate 1 Mg/Ml Vial) 5 mg IV Q5M PRN PRN Reason: Tachycardia Metoprolol Tartrate (Metoprolol Tartrate 25 Mg Tab) 25 mg PO BID [facility] Stop: 05/08/21 10:59 Last Admin: 04/09/21 08:11 Dose: 25 mg Documented by: Miscellaneous (Icu Electrolyte Replacement Protocol) 1 ea N/A BID@06,18 [facility]; Protocol Stop: 04/12/21 17:59 Last Admin: 04/09/21 06:24 Dose: 1 ea Documented by: Miscellaneous Information (Pharmacy Glycemic Mgmt Consult) 1 ea N/A UD PRN PRN Reason: Consult Stop: 05/01/21 09:50 Nutritional Formula (Peptamen Intense Vhp 1.0 Nelson 1,000 Ml Bag) 1,000 ml OG UD [facility]; Protocol Stop: 05/05/21 11:14 Last Admin: 04/08/21 12:17 Dose: 1,000 ml Documented by: Olanzapine (Olanzapine 5 Mg Tablet) 5 mg PO BID [facility] Stop: 05/05/21 12:59 Last Admin: 04/09/21 08:11 Dose: 5 mg Documented by: Oxycodone HCl (Oxycodone Hcl Soln 5 Mg/5 Ml Udc) 5 mg PO BID [facility] Stop: 04/23/21 08:59 Last Admin: 04/09/21 08:10 Dose: 5 mg Documented by: Sennosides (Sennosides 8.8 Mg/5 Ml Udc) 17.6 mg PO QAM [facility] Stop: 04/22/21 08:59 Last Admin: 04/09/21 08:11 Dose: 17.6 mg Documented by: Sterile Water (Tube Feeding Water Flush) 30 ml OG Q4H [facility] Stop: 04/20/21 15:59 Last Admin: 04/09/21 13:23 Dose: 30 ml Documented by:
[2021-04-09] MEDS: PEPTAMEN INTENSE VHP 1.0 CAL 1,000 ML BAG OG SCH (19:25)
[2021-04-09 21:50] LABS: BUN Creatinine Ratio 36.4 (10-20); Calcium 7.6 mg/dl (8.5-10.1); Creatinine Clr Calc Pharmacy 157.3 ml/min; Est GFR (African American) 123.5 ml/min; Est GFR (Non-African American) 106.6 ml/min; Potassium 3.4 mmol/L (3.5-5.1)
[2021-04-09 22:03] LABS: Magnesium 2.2 mg/dl (1.7-2.4); Phosphorus 2.9 mg/dl (2.5-4.9)
[2021-04-09] MEDS: guaiFENesin/CODEINE 100MG/10MG 5ML UDC PO PRN (22:56)
[2021-04-10] MEDS: INSULIN HUMAN REGULAR SC SCH ×5 (00:53→23:03)
[2021-04-10] MEDS: TUBE FEEDING WATER FLUSH OG SCH ×7 (00:54→23:04)
[2021-04-10] MEDS: POTASSIUM CHLORIDE 20 MEQ/15 ML UDC PO SCH (02:41)
[2021-04-10] MEDS: fentaNYL citrate 100 MCG/2 ML VIAL IV PRN ×3 (05:01→14:53)
[2021-04-10] MEDS: guaiFENesin/CODEINE 100MG/10MG 5ML UDC PO PRN (05:01)
[2021-04-10 05:29] LABS: Basophils # (auto) 0.01 K/uL (0-0.2); Basophils % (auto) 0.1 %; Eosinophils # (auto) 0.17 K/uL (0-0.5); Eosinophils % (auto) 0.9 %; Hematocrit (blood only) 24.5 % (42-52); Hemoglobin 7.4 g/dL (14.0-18.0); Immature Granulocytes # (auto) 0.08 K/uL (0.00-0.02); Immature Granulocytes % (auto) 0.4 %; Lymphocytes # (auto) 1.64 K/uL (1.2-3.4); Lymphocytes % (auto) 8.7 %; Mean Corpuscular Hemoglobin 28.8 pg (25-34); Mean Corpuscular Hgb Conc 30.2 g/dL (32-36); Mean Corpuscular Volume 95.3 fL (80-100); Mean Platelet Volume 9.3 fL (7.4-10.4); Monocytes # (auto) 1.07 K/uL (0.11-0.59); Monocytes % (auto) 5.7 %; Neutrophils # (auto) 15.96 K/uL (1.4-6.5); Neutrophils % (auto) 84.2 %; Platelet Count 616 K/uL (130-400); RDW Coefficient of Variation 16.4 % (11.5-14.5); RDW Standard Deviation 53.6 fL (36.4-46.3); Red Blood Count 2.57 M/uL (4.7-6.1); White Blood Count 18.93 K/uL (4.8-10.8)
[2021-04-10 05:44] LABS: Polychromasia 1+
[2021-04-10 05:48] LABS: BUN Creatinine Ratio 41.1 (10-20); Calcium 7.6 mg/dl (8.5-10.1); Creatinine Clr Calc Pharmacy 185.4 ml/min; Est GFR (African American) 132.1 ml/min; Magnesium 2.1 mg/dl (1.7-2.4); Phosphorus 2.5 mg/dl (2.5-4.9)
[2021-04-10] MEDS: ICU ELECTROLYTE REPLACEMENT PROTOCOL SCH ×2 (06:32→17:26)
[2021-04-10] MEDS ORDERED: SODIUM PHOSPHATE 3 MMOL/1 ML INFUSION IV STA (06:33)
[2021-04-10] MEDS ORDERED: SODIUM PHOSPHATE 15 MMOL in DEXTROSE 5% 250 ML IV ONE (07:15)
--- NOTE | 2021-04-10 07:22 | XRay Report ---
XR chest 1V portable CLINICAL HISTORY: Respiratory failure. COMPARISON STUDY: Chest radiograph April 09, 2021. FINDINGS: Small amount of gas within the right neck is noted. Tracheostomy tube and right PICC are in place. Cardiomegaly is unchanged. There is a possible trace right apical pneumothorax. Bilateral air space opacities are similar to prior exam. IMPRESSION: 1. Tracheostomy tube in place. 2. Small amount of gas within the right neck. Possible trace right apical pneumothorax. 3. No significant change in bilateral airspace opacities. ACT 112: Negative or not required by law. Electronically signed by: Joseph Hurley M.D. 04/10/2021 7:20 AM
[2021-04-10] MEDS: oxyCODONE HCL SOLN 5 MG/5 ML UDC PO SCH ×2 (07:51→20:05)
[2021-04-10] MEDS: SENNOSIDES 8.8 MG/5 ML UDC PO SCH (07:51)
[2021-04-10] MEDS: DOCUSATE SODIUM SYRUP 100 MG/10 ML UDC PO SCH ×2 (07:51→20:02)
[2021-04-10] MEDS: ENOXAPARIN INJ 120 MG/0.8 ML SYR SQ SCH ×2 (07:51→20:02)
[2021-04-10] MEDS: buPROPion HCl 100 MG TABLET PO SCH ×3 (07:52→20:02)
[2021-04-10] MEDS: METOPROLOL TARTRATE 25 MG TAB PO SCH ×2 (07:52→20:03)
[2021-04-10] MEDS: OLANZapine 5 MG TABLET PO SCH (07:52)
[2021-04-10] MEDS: LANSOPRAZOLE 30 MG SOLTAB NG SCH (07:52)
[2021-04-10] MEDS: AMIODARONE 200 MG TAB PO SCH ×2 (07:52→16:51)
[2021-04-10] MEDS: GABAPENTIN 250 MG/5 ML 470 ML BTL PO SCH ×3 (07:52→20:05)
--- NOTE | 2021-04-10 08:40 | Critical Care Progress Note ---
Date of Service April 10, 2021 Assessment & Plan (1) ARDS (adult respiratory distress syndrome): (2) Acute hypoxemic respiratory failure: (3) Pneumonia due to COVID-19 virus: Plan: Impression: 60-year-old male acute hypoxic respiratory failure secondary to COVID-19 pneumonia. Patient was admitted to the facility 03/01/2021. He was transferred to the ICU 03/19/2021 where he was intubated. Tracheostomy performed 03/23/2021 24-hour events: Transition to trach collar this morning. Has had episodes of paroxysms of cough which have failed lidocaine nebs, narcotics, benzodiazepines. He is already on Neurontin. Lidocaine neb was ineffectual. Recommendations: Neuro: Discontinue Zyprexa. Continue Neurontin for chronic back pain. Continue Prozac and Wellbutrin given prior history of PTSD/mood disorder. Will monitor QTC Resp: Intubated 03/19/2021, tracheostomy 03/23/2021. Trach exchanged 04/05 for XLT. Proceed to trach collar trials as tolerated. If he tolerates trach collar greater than 24 hours, can likely transfer out of the intensive care unit.. Okay to deflate cuff. Speech therapy evaluation. Passy-Willi valve evaluation. May need to downsize his trach and transition to fenestrated trach at some point. We will increase codeine for cough to see if this is beneficial CV: A. fib/flutter with rapid ventricular response. Status post cardioversion. Appreciate cardiology consultation. Fully anticoagulated with Lovenox. Continue amiodarone. Currently rate controlled and in sinus. Oral metoprolol as tolerated. If continued issues, may need to discuss ablation. ID: Fevers resolved. White count stable at 18,000. Central lines out. Completed course of Zosyn for Serratia in sputum. Continue to follow clinically. Reculture should he be febrile Renal: No current issues. Continue electrolyte replacement. Hypercalcemia appears resolved. Initiate ICU replacement protocol GI/Nutrition: Tube feeding per nutrition via PEG tube. Continue bowel protocol Heme: DVTs: Lovenox, therapeutic. Mild anemia. No indication for transfusion currently. Continue to trend. Endocrine: Glycemic control per protocol Full Code Patient needs aggressive therapy. Working with PT and OT. Continue pressure support trials as tolerated. Anticipate the patient may have prolonged hospitalization due to issues with disposition. Continue ICU until the patient is able to tolerate trach collar --Prophylaxis VTE: Therapeutic Lovenox GI: Protonix twice daily Lines: Right arm PICC 03/29/2021, peripherals, positive Hernandez, positive trach 03/23/2021 Diet: Tube feeds Patient's Mellissa [phone] CRITICAL CARE TIME - I have personally spent 36 minutes of critical care time in the direct management of this patient. This is a life/limb threatening event. This includes time spent evaluating patient, direct bedside care, chart review, placing orders, interpretation of diagnostic studies, discussion with consultants, patient, and family members, as well as other required patient management activities. This time is exclusive of all separately billable procedures, and teaching time and separate from and in addition to any other critical care service time. Please note the above document was generated using voice recognition software. It may contain grammatical, syntax or spelling errors. Admission and Anticipated Discharge Date Admission Date: March 01, 2021 Subjective Patient seen and examined. He is awake and alert. He does appear confused. He is trying to communicate. He is having paroxysms of cough. Review of Systems Review of Systems: Unobtainable due to cognitive status Physical Exam Constitutional: WD/WN, vitals as above Neck: trachea midline, no thyromegaly Trach site clean dry and intact Respiratory: normal respiratory effort; no respiratory distress, no labored breathing and not tachypneic Auscultation: + crackles and + wheezes Cardiovascular: RRR, no murmur, no edema Gastrointestinal (Abdomen): normal bowel sounds, soft, nontender, no hepatosplenomegaly Musculoskeletal: Extremities: extremities normal to inspection Skin: no rashes, warm and dry Lymphatic: no cervical lymphadenopathy Results & Data Results & Data ([facility]) Vital Signs (Past 12 Hours) Vital Signs Pulse Resp BP Pulse Ox 04/10/21 06:00 97 H 30 H 153/69 H 95 04/10/21 05:36 73 39 H 96 04/10/21 05:00 88 38 H 88 L 04/10/21 04:00 74 33 H 130/58 L 93 04/10/21 03:00 71 23 97 04/10/21 02:00 78 39 H 142/71 H 93 04/10/21 01:00 84 33 H 100 04/10/21 00:00 64 19 128/59 L 99 01/14/22 23:59 71 04/09/21 23:20 62 33 H 95 04/09/21 23:00 65 31 H 93 04/09/21 22:00 61 18 113/48 L 98 04/09/21 21:00 55 L 25 H 93 04/09/21 20:53 67 Critical Care Results & Data Vital Signs (Past 12 Hours) Vital Signs Pulse Resp BP Pulse Ox 04/10/21 06:00 97 H 30 H 153/69 H 95 04/10/21 05:36 73 39 H 96 04/10/21 05:00 88 38 H 88 L 04/10/21 04:00 74 33 H 130/58 L 93 04/10/21 03:00 71 23 97 04/10/21 02:00 78 39 H 142/71 H 93 04/10/21 01:00 84 33 H 100 04/10/21 00:00 64 19 128/59 L 99 04/09/21 23:59 71 04/09/21 23:20 62 33 H 95 04/09/21 23:00 65 31 H 93 04/09/21 22:00 61 18 113/48 L 98 04/09/21 21:00 55 L 25 H 93 04/09/21 20:53 67 Lab & Micro Results (Past 24 Hours) RBC 2.57 M/uL (4.7-6.1) L 04/10/21 WBC 18.93 K/uL (4.8-10.8) H 04/10/21 Hgb 7.4 g/dL (14.0-18.0) L 04/10/21 Hct 24.5 % (42-52) L 04/10/21 MCV 95.3 fL (80-100) 04/10/21 MCH 28.8 pg (25-34) 04/10/21 MCHC 30.2 g/dL (32-36) L 04/10/21 RDW Standard Deviation 53.6 fL (36.4-46.3) H 04/10/21 RDW Coefficient of Variation 16.4 % (11.5-14.5) H 04/10/21 Plt Count 616 K/uL (130-400) H 04/10/21 MPV 9.3 fL (7.4-10.4) 04/10/21 Neutrophils (%) (Auto) 84.2 % 04/10/21 Lymphocytes (%) (Auto) 8.7 % 04/10/21 Monocytes # (Auto) 1.07 K/uL (0.11-0.59) H 04/10/21 Eosinophils # (Auto) 0.17 K/uL (0-0.5) 04/10/21 Immature Granulocyte % (Auto) 0.4 % 04/10/21 Neutrophils # (Auto) 15.96 K/uL (1.4-6.5) H 04/10/21 Lymphocytes # (Auto) 1.64 K/uL (1.2-3.4) 04/10/21 Monocytes # (Auto) 1.07 K/uL (0.11-0.59) H 04/10/21 Eosinophils # (Auto) 0.17 K/uL (0-0.5) 04/10/21 Basophils # (Auto) 0.01 K/uL (0-0.2) 04/10/21 Immature Granulocyte # (Auto) 0.08 K/uL (0.00-0.02) H 04/10/21 Polychromasia 1+ 04/10/21 Na 137 mmol/L (136-145) 04/10/21 K 4.0 mmol/L (3.5-5.1) 04/10/21 Cl 107 mmol/L (98-107) 04/10/21 CO2 26 mmol/L (21-32) 04/10/21 Anion Gap 4 (3-11) 04/10/21 BUN 23 mg/dl (6-23) 04/10/21 Creatinine 0.56 mg/dl (0.6-1.4) L 04/10/21 Estimated GFR ( Amer) 132.1 ml/min 04/10/21 Estimated GFR (Non-Af Amer) 114.0 ml/min 04/10/21 BUN/Creatinine Ratio 41.1 (10-20) H 04/10/21 Glu 100 mg/dl (70-99) H 04/10/21 Ca 7.6 mg/dl (8.5-10.1) L 04/10/21 Phosphorus Level 2.5 mg/dl (2.5-4.9) 04/10/21 Mg 2.1 mg/dl (1.7-2.4) 04/10/21 04:55 04/10/21 Calcium Level 7.6 mg/dl (8.5-10.1) L 04/10/21 04:55 04/10/21 Diagnostic Findings (Past 24 Hours) Chest X-Ray 04/10/21 07:00 XR chest 1V portable CLINICAL HISTORY: Respiratory failure. COMPARISON STUDY: Chest radiograph April 09, 2021. FINDINGS: Small amount of gas within the right neck is noted. Tracheostomy tube and right PICC are in place. Cardiomegaly is unchanged. There is a possible trace right apical pneumothorax. Bilateral airspace opacities are similar to prior exam. IMPRESSION: 1. Tracheostomy tube in place. 2. Small amount of gas within the right neck. Possible trace right apical pneumothorax. 3. No significant change in bilateral airspace opacities. ACT 112: Negative or not required by law. Electronically signed by: Joseph Hurley M.D. 04/10/2021 7:20 AM I & O Totals 24 Hours 04/09/21 04/10/21 04/11/21 06:59 06:59 06:59 Intake Total 360 / 360 Output Total 975 / 975 1000 / 1000 Balance -975 / -975 -640 / -640 Cumulative 02/28/21 20:05 thru 04/10/21 06:00 Intake Total 92235.618 Output Total 19091 Balance 5164.618 RT Ventilator Mngmt (Last Documented) Ventilator Ordered Settings Ventilator Support Mode PRVC 04/10/21 05:36 Respiratory Rate 30 04/10/21 06:00 Ventilator Tidal Volume 400 04/10/21 05:36 Setting Minute Ventilation 16 04/10/21 05:36 Ventilator Positive Pressure 12 04/09/21 11:19 Support Setting Positive End Expiratory 5 04/10/21 05:36 Pressure Fraction of Inspired Oxygen 30 04/10/21 05:36 Peak Inspiratory Flow 42 03/25/21 16:49 Machine Comment found on RR 04/07/21 14:45 Ventilator - PT Measurements Respiratory Rate 30 Exhaled Tidal Volume 405 Minute Ventilation 16 Peak Inspiratory Airway 25 Pressure Plateau Pressure 14.5 Respiratory Cycle Inspiratory: 1:1.5 Expiratory Ratio Inspiratory Phase Time 0.8 End-Tidal CO2 24 Static Lung Compliance 42.63 Dynamic Lung Compliance 20.25 Normal Static Lung Compliance 46.00 Patient Measurements Comment Back to PRVC at this time. Pt anxious and coughing continuously. Increased RR and low SPO2 . Coding Level of Care Code 86722 Subseq Hosp Care Lvl 3 Diagnoses ARDS (adult respiratory distress syndrome) J80 Acute hypoxemic respiratory failure J96.01 Pneumonia due to COVID-19 virus U07.1; J12.82
[2021-04-10] MEDS ORDERED: guaiFENesin/CODEINE 100MG/10MG 5ML UDC PO PRN (08:42)
[2021-04-10] MEDS ORDERED: ALTEPLASE, RECOMBINANT 1 MG/ML 2ML VIAL INSTIL ONE (09:09)
[2021-04-10] MEDS: PEPTAMEN INTENSE VHP 1.0 CAL 1,000 ML BAG OG SCH (16:51)
[2021-04-11] MEDS: TUBE FEEDING WATER FLUSH OG SCH ×5 (03:53→20:51)
[2021-04-11 05:18] LABS: Eosinophils # (auto) 0.07 K/uL (0-0.5); Eosinophils % (auto) 0.4 %; Hematocrit (blood only) 24.9 % (42-52); Hemoglobin 7.6 g/dL (14.0-18.0); Immature Granulocytes # (auto) 0.09 K/uL (0.00-0.02); Immature Granulocytes % (auto) 0.5 %; Lymphocytes # (auto) 1.36 K/uL (1.2-3.4); Mean Corpuscular Hemoglobin 29.6 pg (25-34); Mean Corpuscular Hgb Conc 30.5 g/dL (32-36); Mean Corpuscular Volume 96.9 fL (80-100); Mean Platelet Volume 8.9 fL (7.4-10.4); Monocytes # (auto) 1.16 K/uL (0.11-0.59); Neutrophils # (auto) 16.71 K/uL (1.4-6.5); Neutrophils % (auto) 86.1 %; Platelet Count 547 K/uL (130-400); RDW Coefficient of Variation 16.8 % (11.5-14.5); RDW Standard Deviation 56.7 fL (36.4-46.3); Red Blood Count 2.57 M/uL (4.7-6.1); White Blood Count 19.39 K/uL (4.8-10.8)
[2021-04-11] MEDS: fentaNYL citrate 100 MCG/2 ML VIAL IV PRN (05:43)
[2021-04-11 05:45] LABS: BUN Creatinine Ratio 34.6 (10-20); Calcium 8.1 mg/dl (8.5-10.1); Creatinine Clr Calc Pharmacy 199.6 ml/min; Est GFR (African American) 136.2 ml/min; Est GFR (Non-African American) 117.5 ml/min; Magnesium 2.2 mg/dl (1.7-2.4); Phosphorus 2.9 mg/dl (2.5-4.9); Potassium 3.8 mmol/L (3.5-5.1)
[2021-04-11] MEDS: INSULIN HUMAN REGULAR SC SCH ×3 (05:51→17:01)
[2021-04-11 05:54] LABS: Polychromasia 1+
[2021-04-11] MEDS ORDERED: INSULIN ASPART PER UNIT ONE (05:57)
[2021-04-11] MEDS ORDERED: POTASSIUM CHLORIDE 20 MEQ/15 ML UDC PO STA (06:48)
[2021-04-11] MEDS: ICU ELECTROLYTE REPLACEMENT PROTOCOL SCH (06:51)
[2021-04-11] MEDS: DOCUSATE SODIUM SYRUP 100 MG/10 ML UDC PO SCH ×2 (07:51→20:51)
[2021-04-11] MEDS: ENOXAPARIN INJ 120 MG/0.8 ML SYR SQ SCH ×2 (07:51→20:52)
[2021-04-11] MEDS: GABAPENTIN 250 MG/5 ML 470 ML BTL PO SCH ×3 (07:51→20:54)
[2021-04-11] MEDS: SENNOSIDES 8.8 MG/5 ML UDC PO SCH (07:51)
[2021-04-11] MEDS: METOPROLOL TARTRATE 25 MG TAB PO SCH ×2 (07:52→20:52)
[2021-04-11] MEDS: oxyCODONE HCL SOLN 5 MG/5 ML UDC PO SCH ×2 (07:52→20:54)
[2021-04-11] MEDS: AMIODARONE 200 MG TAB PO SCH ×2 (07:52→17:01)
[2021-04-11] MEDS: buPROPion HCl 100 MG TABLET PO SCH ×3 (07:52→20:52)
[2021-04-11] MEDS: LANSOPRAZOLE 30 MG SOLTAB NG SCH (07:52)
--- NOTE | 2021-04-11 08:26 | Hospitalist Progress Note ---
Date of Service April 10, 2021 Assessment & Plan (1) Acute hypoxemic respiratory failure: (2) ARDS (adult respiratory distress syndrome): (3) Pneumonia due to COVID-19 virus: Plan: 2/2 covid pneumonia, remains on vent 2/2 ARDS. S/p trach and PEG. CTA-no evidence of PE. Remdesivir discontinued by pulmonary service Completed dexamethasone 10 days course Baricitinib given for 6 days but discontinued due to acute DVTs (03/06/21) Had completed abx with cefepime and doxycycline for 7 days in Dec Received an additional 7 day course of Zosyn for serratia in the sputum-early Mar (4) Acute DVT (deep venous thrombosis): Plan: Deep venous thrombosis posterior tibial and peroneal veins Likely provoked by COVID-19 infection & baricitinib use Patient reported family history of blood clots Lovenox held post procedurally and has been restarted. (5) Atrial fibrillation: Plan: Sinus rhythm. Cont with amiodarone and metoprolol. Anticoagulation with Lovenox. (6) Anxiety: Plan: has h/o PTSD per records, exhibiting anxiety requiring ativan with good response per nurse and per . This is likely the reason for his somnolence today. Plan: Lovenox Full Code Dispo-LTAC Heaven Castillo DO [facility] Hospitalist Admission and Anticipated Discharge Date Admission Date: March 01, 2021 Subjective 60 yo M admitted for acute respiratory failure 2/2 covid 19 pneumonia s/p trach and PEG this admission with PEG placed 1/12 Tube feeds running at goal transitioned off vent this am to trach collar still having coughing spells-noted bronchospasm episodes refractory to lidocaine nebs in ICU note appears slightly confused today with some anxiety Review of Systems Review of Systems: ROS was unable to be obtained 2/2 confusion. Physical Exam Physical Exam: CONSTITUTIONAL: WNWD, vitals as above, slightly anxious EYES: normal conjunctivae, no scleral icterus, ENT: external ear and nose normal, MMM, trach collar. Productive sputum out of trach with coughing spells noted. NECK: trachea midline, tracheostomy in place RESPIRATORY: coarse breath sounds throughout,no rales or wheezes CARDIOVASCULAR: regular rate and rhythm, S1 and 2 heard without murmurs, gallops or rubs, no JVD, trace peripheral edema, 1+ edema on right hand. CHEST: inspection of chest was normal GASTROINTESTINAL: soft, ND, no guarding, protuberant, some slight bruising. PEG in place MUSCULOSKELETAL: generalized weakness, moves all extremities equally. SKIN: warm and dry NEUROLOGIC: CN 2-12 grossly intact, No gross focal deficit. Results & Data Results & Data ([facility]) Vital Signs (Past 12 Hours) Vital Signs Temp Pulse Resp BP Pulse Ox Pulse Ox 04/11/21 08:00 37.1 C 80 92 04/11/21 06:00 80 22 147/63 H 90 04/11/21 05:00 84 46 H 136/73 92 04/11/21 04:00 37.3 C 150/65 H 04/11/21 03:00 76 28 H 128/66 96 04/11/21 02:00 37.4 C 77 30 H 130/61 96 04/11/21 01:00 83 29 H 134/91 94 04/11/21 00:15 79 04/11/21 00:00 37.4 C 78 30 H 140/66 95 04/10/21 23:00 87 36 H 129/88 90 04/10/21 22:00 37.4 C 73 38 H 137/71 90 04/10/21 21:00 76 39 H 129/65 90
--- NOTE | 2021-04-11 09:07 | XRay Report ---
XR chest 1V portable CLINICAL HISTORY: Resp failure. Follow-up bilateral airspace opacities COMPARISON STUDY: 04/10/2021 TECHNIQUE: 1 view of the chest FINDINGS: Single frontal view of the chest demonstrates the cardiomediastinal silhouette to be within normal li mits. Tracheostomy tube is again seen. Compared to the previous examination, there is no significant interval change in bilateral interstitial and alveolar opacities. There is no evidence for pleural ef fusion. There is no evidence for vascular congestion. There is no acute osseous pathology. Very minim al subcutaneous emphysema is again seen in the right neck. IMPRESSION: No significant interval change in bilateral interstitial and alveolar opacities. ACT 112: Negative or not required by law. Electronically signed by: Jose Emerson M.D. 04/11/2021 9:06 AM
--- NOTE | 2021-04-11 09:18 | Critical Care Progress Note ---
Date of Service April 11, 2021 Assessment & Plan (1) ARDS (adult respiratory distress syndrome): (2) Acute hypoxemic respiratory failure: (3) Pneumonia due to COVID-19 virus: Plan: 24-hour events: Transition to trach collar 04/10/21 has remained on trach collar overnight with cuff down. Has had episodes of paroxysms of cough which have failed lidocaine nebs, narcotics, benzodiazepines, but has some improvement with guaifenesin with codeine. He is already on Neurontin. Lidocaine neb reported as not effective and he did not notice a difference. Up to chair mode in bed this morning Neuro: PTSD Discontinue Zyprexa. Continue Neurontin for chronic back pain. Continue Prozac and Wellbutrin given prior history of PTSD/mood disorder. Will monitor QTC Resp: ARDS, COVID, VDFR, - Intubated 03/19/2021, tracheostomy 03/23/2021. Trach exchanged 04/05 for XLT. Proceed to trach collar trials as tolerated. Has tolerated trach collar at .70 FIO2 with cuff deflated. No tachypnea, tachycardia or hypoxia. Speech therapy evaluation. Passy-Somerset valve evaluation. We will increase codeine for cough to see if this is beneficial - Down size trach if he continues to improve and following speech therapy eval- This can also be done at [facility] - Can downgrade to Medical Surgical floor. - If hypoxia- re-inflate cuff and CPAP if needed CV: A. fib/flutter with rapid ventricular response. Status post cardioversion. Appreciate cardiology consultation. Fully anticoagulated with Lovenox. Continue amiodarone. Currently rate controlled and in sinus. Oral metoprolol as tolerated. If continued issues, may need to discuss ablation. ID: Fevers resolved. - WBC stable, Continue to follow clinically. Reculture should he be febrile - Central lines out. - Completed course of Zosyn for Serratia in sputum. Renal: No current issues. Continue electrolyte replacement. Hypercalcemia appears resolved. Initiate ICU replacement protocol - Cartagena removed today- bladder scan and straight cath as needed - Tolerating tube feeds GI/Nutrition: Tube feeding per nutrition via PEG tube. Continue bowel protocol- could increase free water - Can transition PPI to down PEG tube if continued need Heme: DVTs: Lovenox, therapeutic. Mild anemia. No indication for transfusion currently. Continue to trend. Endocrine: Glycemic control per protocol Full Code Patient needs aggressive therapy. Working with PT and OT. Continue pressure support trials as tolerated. Anticipate the patient may have prolonged hospitalization due to issues with disposition. Continue ICU until the patient is able to tolerate trach collar --Prophylaxis VTE: Therapeutic Lovenox GI: Protonix twice daily Lines: Right arm PICC 03/29/2021, peripherals, positive [place], positive trach 03/23/2021 Diet: Tube feeds CRITICAL CARE TIME - I have personally spent 40 minutes of critical care time in the direct management of this patient. This is a life/limb threatening event. This includes time spent evaluating patient, direct bedside care, chart review, placing orders, interpretation of diagnostic studies, discussion with consultants, patient, and family members, as well as other required patient management activities. This time is exclusive of all separately billable procedures, and teaching time and separate from and in addition to any other critical care service time. Please note the above document was generated using voice recognition software. It may contain grammatical, syntax or spelling errors. Admission and Anticipated Discharge Date Admission Date: March 01, 2021 Supervising Physician Co-Signing Physician Notes Seen and examined. discussed with OLE and with bedside switch repairer. >24 hours on trach collar and doing well. discontinue cartagena. OOB as tolerated. Continue PT and OT. Cuff deflated today - speech therapy eval for swallow. Cont TF for now. Ok to transfer out of ICU. May need trach downsized in next few days - possible transition to cuffless fenestrated based on clinical response. wean sedatives to off. Continue wound care. CC to sign off. call if issues. Subjective 60-year-old male acute hypoxic respiratory failure secondary to COVID-19 pneumonia. Patient was admitted to the facility 03/01/2021. He was transferred to the ICU 03/19/2021 where he was intubated. Tracheostomy performed 03/23/2021. Has progressed to 24 hours on trach collar with cuff deflated. Remains with paroxysmal coughing with most benefit reported from the guaifenesin with codeine. He is maintaining on 70% FIo2, remains weak. Hopeful to progress his PT this week, he is currently sitting up in chair mode in the bed. Awake, appropriate, and communicating as best he can while getting used to his trach, attempting to write but to weak. Will have nursing find sign board to assist in meeting his needs. From ICU perspective patient can be downgraded. Will discuss with his admitting team. - Notify ICU/PULM for downsizing trach or for any difficulties/questions regarding tracheostomy. Review of Systems Review of Systems: REVIEW OF SYSTEMS: Generalized: Awake conversant, feels tired Eyes: No diplopia, no worsening or blurred vision ENT: Cough no pain at trach site Respiratory: (+) cough, dyspneic on exertion Cardiovascular: No chest pain, tightness or palpitations Abdomen: No pain, nausea, vomiting, diarrhea or constipation Musculoskeletal: (+) back and sacral pain, Neurologic: (+) overall muscle weakness, NO numbness/tingling, or balance problems Psychiatric: No anxiety or depression Skin: No rash or itch Physical Exam Physical Exam: General: Awake alert, re-oriented to date and time today, EYES: normal conjunctivae, no scleral icterus, ENT: PPERLA, no drainage from nose, XLT trach in place with trach collar, no hematoma or blood around site RESPIRATORY: coarse breath sounds throughout, no wheeze, cough with position change or trying to talk CARDIOVASCULAR: regular rate and rhythm, S1 and 2 heard without murmurs, gallops or rubs, trace peripheral edema, right hand more than left hand GASTROINTESTINAL: soft, ND, no guarding, protuberant, some slight bruising. PEG in place with site intact, no pain MUSCULOSKELETAL: generalized weakness, moves all extremities equally, attempting to write and communicate SKIN: warm and dry Results & Data Results & Data ([facility]) Vital Signs (Past 12 Hours) Vital Signs Temp Pulse Resp BP Pulse Ox Pulse Ox 04/11/21 08:00 37.1 C 80 92 04/11/21 06:00 80 22 147/63 H 90 04/11/21 05:00 84 46 H 136/73 92 04/11/21 04:00 37.3 C 150/65 H 04/11/21 03:00 76 28 H 128/66 96 04/11/21 02:00 37.4 C 77 30 H 130/61 96 04/11/21 01:00 83 29 H 134/91 94 04/11/21 00:15 79 04/11/21 00:00 37.4 C 78 30 H 140/66 95 04/10/21 23:00 87 36 H 129/88 90 04/10/21 22:00 37.4 C 73 38 H 137/71 90 Laboratory Results Abnormal lab results 04/10/21 04/10/21 04/10/21 Range/Units 10:55 16:36 23:02 WBC (4.8-10.8) K/uL RBC (4.7-6.1) M/uL Hgb (14.0-18.0) g/dL Hct (42-52) % MCHC (32-36) g/dL RDW Std Deviation (36.4-46.3) fL RDW Coeff of Natali (11.5-14.5) % Plt Count (130-400) K/uL Neut # (Auto) (1.4-6.5) K/uL [place] # (Auto) (0.11-0.59) K/uL Immature Gran # (Auto) (0.00-0.02) K/uL Chloride (98-107) mmol/L Creatinine (0.6-1.4) mg/dl BUN/Creatinine Ratio (10-20) Glucose (70-99) mg/dl POC Glucose 102 H 102 H 115 H (70-99) mg/dl Calcium (8.5-10.1) mg/dl 04/11/21 04/11/21 04/11/21 Range/Units 03:51 05:10 05:10 WBC 19.39 H (4.8-10.8) K/uL RBC 2.57 L (4.7-6.1) M/uL Hgb 7.6 L (14.0-18.0) g/dL Hct 24.9 L (42-52) % MCHC 30.5 L (32-36) g/dL RDW Std Deviation 56.7 H (36.4-46.3) fL RDW Coeff of Natali 16.8 H (11.5-14.5) % Plt Count 547 H (130-400) K/uL Neut # (Auto) 16.71 H (1.4-6.5) K/uL [place] # (Auto) 1.16 H (0.11-0.59) K/uL Immature Gran # (Auto) 0.09 H (0.00-0.02) K/uL Chloride 109 H (98-107) mmol/L Creatinine 0.52 L (0.6-1.4) mg/dl BUN/Creatinine Ratio 34.6 H (10-20) Glucose 112 H (70-99) mg/dl POC Glucose 108 H (70-99) mg/dl Calcium 8.1 L (8.5-10.1) mg/dl 04/11/21 Range/Units 05:46 WBC (4.8-10.8) K/uL RBC (4.7-6.1) M/uL Hgb (14.0-18.0) g/dL Hct (42-52) % MCHC (32-36) g/dL RDW Std Deviation (36.4-46.3) fL RDW Coeff of Natali (11.5-14.5) % Plt Count (130-400) K/uL Neut # (Auto) (1.4-6.5) K/uL [place] # (Auto) (0.11-0.59) K/uL Immature Gran # (Auto) (0.00-0.02) K/uL Chloride (98-107) mmol/L Creatinine (0.6-1.4) mg/dl BUN/Creatinine Ratio (10-20) Glucose (70-99) mg/dl POC Glucose 118 H (70-99) mg/dl Calcium (8.5-10.1) mg/dl Diagnostic Findings Chest X-Ray 04/11/21 07:00 XR chest 1V portable CLINICAL HISTORY: Resp failure. Follow-up bilateral airspace opacities COMPARISON STUDY: 04/10/2021 TECHNIQUE: 1 view of the chest FINDINGS: Single frontal view of the chest demonstrates the cardiomediastinal silhouette to be within normal limits. Tracheostomy tube is again seen. Compared to the previous examination, there is no significant interval change in bilateral interstitial and alveolar opacities. There is no evidence for pleural effusion. There is no evidence for vascular congestion. There is no acute osseous pathology. Very minimal subcutaneous emphysema is again seen in the right neck. IMPRESSION: No significant interval change in bilateral interstitial and alveolar opacities. ACT 112: Negative or not required by law. Electronically signed by: Jose Emerson M.D. 04/11/2021 9:06 AM Coding Level of Care Code Critical Care 1st 30-74 mins Diagnoses ARDS (adult respiratory distress syndrome) J80 Acute hypoxemic respiratory failure J96.01 Pneumonia due to COVID-19 virus U07.1; J12.82
[2021-04-11] MEDS: PEPTAMEN INTENSE VHP 1.0 CAL 1,000 ML BAG OG SCH (10:33)
[2021-04-11] MEDS ORDERED: POTASSIUM CHLORIDE 20 MEQ/15 ML UDC PO ONE (11:00)
[2021-04-11] MEDS ORDERED: PIPERACILL/TAZOBAC CONSULT ACTIVE PRN (11:53)
[2021-04-11] MEDS ORDERED: PIPERACILLIN/TAZOBACTAM 4.5 GM in DEXTROSE 5% 100 ML IV ONE (12:30)
--- NOTE | 2021-04-11 15:39 | Hospitalist Progress Note ---
Date of Service April 11, 2021 Assessment & Plan (1) Acute hypoxemic respiratory failure: (2) ARDS (adult respiratory distress syndrome): (3) Pneumonia due to COVID-19 virus: Plan: 2/2 covid pneumonia, remains on vent 2/2 ARDS. S/p trach and PEG. CTA-no evidence of PE. Remdesivir discontinued by pulmonary service Completed dexamethasone 10 days course Baricitinib given for 6 days but discontinued due to acute DVTs (03/06/21) Had completed abx with cefepime and doxycycline for 7 days in Dec Received an additional 7 day course of Zosyn for serratia in the sputum-early Hong Leukocytosis increasing, remains afebrile. Repeat sputum culture sent growing GNB. May be persistent serratia, but sensitivities pending. Zosyn restarted (04/11). Will follow culture. (4) Acute DVT (deep venous thrombosis): Plan: Deep venous thrombosis posterior tibial and peroneal veins Likely provoked by COVID-19 infection & baricitinib use Patient reported family history of blood clots Cont Lovenox (5) Atrial fibrillation: Plan: Sinus rhythm. Cont with amiodarone and metoprolol. Anticoagulation with Lovenox. (6) Anxiety: Plan: has h/o PTSD per records, exhibits understandable frustration with current limitations. Doesn't appear overtly anxious today. Plan: Lovenox Full Code Dispo-LTAC Heaven Castillo DO [facility] Hospitalist Admission and Anticipated Discharge Date Admission Date: March 01, 2021 Subjective 60 yo M admitted for acute respiratory failure 2/2 covid 19 pneumonia s/p trach and PEG this admission with PEG placed / Tube feeds running at goal reports some LUQ pain in abdomen that is tender to palpation nurse mentioned some tenderness around his PEG site earlier nurse also mentioned desaturation episodes into the low 80s with repositioning and some increased time to recruit him back to baseline when he does this. frequent suctioning on trach collar weakness still present and where he can follow instructions, he cannot yet write or communicate well per who is at the bedside he is frustrated. Review of Systems Review of Systems: All systems were reviewed and negative except as indicated above. Notably communication is limited as patient has a trach in place so is unable to speak, and he is weak and unable to write yet. Physical Exam Physical Exam: CONSTITUTIONAL: WNWD, vitals as above, NAD EYES: normal conjunctivae, no scleral icterus, ENT: external ear and nose normal, MMM, trach collar. Productive sputum out of trach with coughing spells noted. NECK: trachea midline, tracheostomy in place RESPIRATORY: coarse breath sounds throughout, no rales or wheezes CARDIOVASCULAR: regular rate and rhythm, S1 and 2 heard without murmurs, gallops or rubs, no JVD, trace peripheral edema in bilateral lower extremities, 1+ edema on right hand. CHEST: inspection of chest was normal GASTROINTESTINAL: soft, ND, TTP in LUQ area, no guarding, protuberant, some slight bruising present. PEG in place, clean and dry without surrounding redness or drainage. MUSCULOSKELETAL: generalized weakness, moves all extremities equally. SKIN: warm and dry NEUROLOGIC: CN 2-12 grossly intact, No gross focal deficit. Results & Data Results & Data ([facility]) Vital Signs (Past 12 Hours) Vital Signs Temp Pulse Resp BP Pulse Ox Pulse Ox 04/11/21 12:01 72 31 H 127/61 94 04/11/21 12:00 69 33 H 92 04/11/21 11:01 74 30 H 143/87 H 88 L 04/11/21 11:00 78 30 H 87 L 04/11/21 10:00 37.3 C 72 32 H 120/72 92 04/11/21 09:01 69 25 H 125/63 04/11/21 09:00 70 27 H 94 04/11/21 08:00 37.1 C 89 25 H 140/65 93 92 04/11/21 07:00 94 H 29 H 129/65 98 04/11/21 06:59 94 H 38 H 125/62 98 04/11/21 06:00 80 22 147/63 H 90 04/11/21 05:00 84 46 H 136/73 92 04/11/21 04:00 37.3 C 150/65 H Laboratory Results Short CBC 04/11/21 Range/Units 05:10 WBC 19.39 H (4.8-10.8) K/uL Hgb 7.6 L (14.0-18.0) g/dL Hct 24.9 L (42-52) % Plt Count 547 H (130-400) K/uL BMP 04/11/21 05:10 Sodium 141 Potassium 3.8 Chloride 109 H Carbon Dioxide 28 BUN 18 Creatinine 0.52 L Glucose 112 H Calcium 8.1 L Diagnostic Findings Chest X-Ray 04/11/21 07:00 XR chest 1V portable CLINICAL HISTORY: Resp failure. Follow-up bilateral airspace opacities COMPARISON STUDY: 04/10/2021 TECHNIQUE: 1 view of the chest FINDINGS: Single frontal view of the chest demonstrates the cardiomediastinal silhouette to be within normal limits. Tracheostomy tube is again seen. Compared to the previous examination, there is no significant interval change in bilateral interstitial and alveolar opacities. There is no evidence for pleural effusion. There is no evidence for vascular congestion. There is no acute osseous pathology. Very minimal subcutaneous emphysema is again seen in the right neck. IMPRESSION: No significant interval change in bilateral interstitial and alveolar opacities. ACT 112: Negative or not required by law. Electronically signed by: Jose Emerson M.D. 04/11/2021 9:06 AM Medications Administered Current Inpatient Medications Acetaminophen (Acetaminophen Susp 325 Mg/10.15 Ml Udc) 650 mg NG Q6H PRN PRN Reason: Fever or headache Stop: 05/01/21 15:28 Amiodarone HCl (Amiodarone 200 Mg Tab) 200 mg PO BID17 COUNTS INCLUDE 234 BEDS AT [facility] Stop: 05/05/21 16:59 Last Admin: 04/11/21 07:52 Dose: 200 mg Documented by: Bupropion HCl (Bupropion Hcl 100 Mg Tablet) 100 mg PO TID COUNTS INCLUDE 234 BEDS AT THE [facility] Stop: 04/22/21 13:59 Last Admin: 04/11/21 13:24 Dose: 100 mg Documented by: Docusate Sodium (Docusate Sodium Syrup 100 Mg/10 Ml Udc) 100 mg PO BID COUNTS INCLUDE 234 BEDS AT THE [facility] Stop: 04/24/21 09:44 Last Admin: 04/11/21 07:51 Dose: 100 mg Documented by: Enoxaparin Sodium (Enoxaparin Inj 120 Mg/0.8 Ml Syr) 111 mg SQ Q12H [facility] Stop: 04/24/21 20:59 Last Admin: 04/11/21 07:51 Dose: 111 mg Documented by: Gabapentin (Gabapentin 250 Mg/5 Ml 470 Ml Btl) 400 mg PO TID [facility] Stop: 04/23/21 08:59 Last Admin: 04/11/21 13:24 Dose: 400 mg Documented by: Guaifenesin/Codeine Phosphate (Guaifenesin/Codeine 200mg/20mg 10ml Udc) 10 ml PO Q6H PRN PRN Reason: Cough Stop: 05/10/21 15:01 Last Admin: 04/11/21 14:49 Dose: 10 ml Documented by: Heparin Sodium (Beef Lung) (Heparin 10 Unit/Ml 5 Ml Flush) 5 ml FLUSH PRN PRN PRN Reason: Flush Stop: 05/10/21 11:48 Last Admin: 04/10/21 12:13 Dose: 10 ml Documented by: Piperacillin Sod/Tazobactam (Sod 4.5 gm/ Dextrose) 120 mls @ 30 mls/hr IV Q8H COUNTS INCLUDE 234 BEDS AT THE [facility]; Protocol Stop: 04/18/21 17:59 Insulin Human Regular (Insulin Human Regular) 0 units SC Q6 [facility] Stop: 05/09/21 11:59 Last Admin: 04/11/21 11:50 Dose: 2 units Documented by: Lansoprazole (Lansoprazole 30 Mg Soltab) 30 mg NG DAILY COUNTS INCLUDE 234 BEDS AT THE [facility] Stop: 05/10/21 08:59 Last Admin: 04/11/21 07:52 Dose: 30 mg Documented by: Metoprolol Tartrate (Metoprolol Tartrate 25 Mg Tab) 25 mg PO BID COUNTS INCLUDE 234 BEDS AT THE [facility] Stop: 05/08/21 10:59 Last Admin: 04/11/21 07:52 Dose: 25 mg Documented by: Miscellaneous Information (Pharmacy Glycemic Mgmt Consult) 1 ea N/A UD PRN PRN Reason: Consult Stop: 05/01/21 09:50 Miscellaneous Information (Piperacill/Tazobac Consult Active) 1 ea N/A UD PRN PRN Reason: Consult Stop: 05/11/21 11:52 Nutritional Formula (Peptamen Intense Vhp 1.0 Nelson 1,000 Ml Bag) 1,000 ml OG UD COUNTS INCLUDE 234 BEDS AT THE [facility]; Protocol Stop: 05/05/21 11:14 Last Admin: 04/11/21 10:33 Dose: 1,000 ml Documented by: Oxycodone HCl (Oxycodone Hcl Soln 5 Mg/5 Ml Udc) 5 mg PO BID COUNTS INCLUDE 234 BEDS AT THE [facility] Stop: 04/23/21 08:59 Last Admin: 04/11/21 07:52 Dose: 5 mg Documented by: Sennosides (Sennosides 8.8 Mg/5 Ml Udc) 17.6 mg PO QAM COUNTS INCLUDE 234 BEDS AT THE [facility] Stop: 04/22/21 08:59 Last Admin: 04/11/21 07:51 Dose: 17.6 mg Documented by: Sterile Water (Tube Feeding Water Flush) 30 ml OG Q4H COUNTS INCLUDE 234 BEDS AT [facility] Stop: 04/20/21 15:59 Last Admin: 04/11/21 11:50 Dose: 30 ml Documented by:
[2021-04-11] MEDS: PIPERACILLIN/TAZOBACTAM 4.5 GM in DEXTROSE 5% 100 ML IV SCH (18:14)
[2021-04-12] MEDS: INSULIN HUMAN REGULAR SC SCH ×4 (00:53→18:21)
[2021-04-12] MEDS: TUBE FEEDING WATER FLUSH OG SCH ×6 (00:53→20:12)
[2021-04-12] MEDS: ACETAMINOPHEN SUSP 325 MG/10.15 ML UDC NG PRN (02:44)
[2021-04-12] MEDS: PIPERACILLIN/TAZOBACTAM 4.5 GM in DEXTROSE 5% 100 ML IV SCH ×3 (02:44→18:20)
[2021-04-12] MEDS: PEPTAMEN INTENSE VHP 1.0 CAL 1,000 ML BAG OG SCH ×2 (02:44→21:38)
[2021-04-12 05:11] LABS: Basophils # (auto) 0.01 K/uL (0-0.2); Basophils % (auto) 0.1 %; Eosinophils # (auto) 0.19 K/uL (0-0.5); Eosinophils % (auto) 1.2 %; Hemoglobin 7.4 g/dL (14.0-18.0); Immature Granulocytes # (auto) 0.06 K/uL (0.00-0.02); Immature Granulocytes % (auto) 0.4 %; Lymphocytes # (auto) 1.48 K/uL (1.2-3.4); Lymphocytes % (auto) 9.2 %; Mean Corpuscular Hemoglobin 29.8 pg (25-34); Mean Corpuscular Hgb Conc 30.8 g/dL (32-36); Mean Corpuscular Volume 96.8 fL (80-100); Mean Platelet Volume 9.2 fL (7.4-10.4); Monocytes # (auto) 1.15 K/uL (0.11-0.59); Monocytes % (auto) 7.2 %; Neutrophils # (auto) 13.17 K/uL (1.4-6.5); Neutrophils % (auto) 81.9 %; Platelet Count 533 K/uL (130-400); RDW Coefficient of Variation 16.9 % (11.5-14.5); RDW Standard Deviation 57.9 fL (36.4-46.3); Red Blood Count 2.48 M/uL (4.7-6.1); White Blood Count 16.06 K/uL (4.8-10.8)
[2021-04-12 05:32] LABS: Calcium 8.2 mg/dl (8.5-10.1); Creatinine Clr Calc Pharmacy 207.6 ml/min; Est GFR (African American) 138.5 ml/min; Est GFR (Non-African American) 119.5 ml/min; Magnesium 2.2 mg/dl (1.7-2.4); Phosphorus 2.4 mg/dl (2.5-4.9); Potassium 4.1 mmol/L (3.5-5.1)
[2021-04-12 05:39] LABS: Polychromasia 1+
[2021-04-12] MEDS: GABAPENTIN 250 MG/5 ML 470 ML BTL PO SCH ×3 (10:02→20:24)
[2021-04-12] MEDS: ENOXAPARIN INJ 120 MG/0.8 ML SYR SQ SCH ×2 (10:02→20:21)
[2021-04-12] MEDS: METOPROLOL TARTRATE 25 MG TAB PO SCH ×2 (10:03→20:23)
[2021-04-12] MEDS: LANSOPRAZOLE 30 MG SOLTAB NG SCH (10:03)
[2021-04-12] MEDS: buPROPion HCl 100 MG TABLET PO SCH ×3 (10:03→20:21)
[2021-04-12] MEDS: AMIODARONE 200 MG TAB PO SCH ×2 (10:04→18:20)
[2021-04-12] MEDS: oxyCODONE HCL SOLN 5 MG/5 ML UDC PO SCH ×2 (10:05→20:20)
[2021-04-12] MEDS: SENNOSIDES 8.8 MG/5 ML UDC PO SCH (10:11)
[2021-04-12] MEDS: DOCUSATE SODIUM SYRUP 100 MG/10 ML UDC PO SCH ×2 (10:11→20:13)
--- NOTE | 2021-04-12 11:53 | Hospitalist Progress Note ---
Date of Service April 12, 2021 Assessment & Plan (1) Acute hypoxemic respiratory failure: (2) ARDS (adult respiratory distress syndrome): (3) Pneumonia due to COVID-19 virus: Plan: 2/2 covid pneumonia, remains on vent 2/2 ARDS. S/p trach and PEG. CTA-no evidence of PE. Remdesivir discontinued by pulmonary service Completed dexamethasone 10 days course Baricitinib given for 6 days but discontinued due to acute DVTs (03/06/21) Had completed abx with cefepime and doxycycline for 7 days in Dec Received an additional 7 day course of Zosyn for serratia in the sputum-early Hong Leukocytosis increasing, remains afebrile. Repeat sputum culture sent growing GNB. May be persistent serratia, but sensitivities pending. Zosyn restarted (04/11). Repeat serratia in culture Will consult ID for recs. (4) Acute DVT (deep venous thrombosis): Plan: Deep venous thrombosis posterior tibial and peroneal veins Likely provoked by COVID-19 infection & baricitinib use Patient reported family history of blood clots Cont Lovenox (5) Atrial fibrillation: Plan: Sinus rhythm. Cont with amiodarone and metoprolol. Anticoagulation with Lovenox. (6) Anxiety: Plan: has h/o PTSD per records, exhibits understandable frustration with current limitations. Doesn't appear overtly anxious today. Plan: Lovenox Full Code Dispo-LTAC Heaven Castillo DO [facility] Hospitalist Admission and Anticipated Discharge Date Admission Date: March 01, 2021 Subjective 60 yo M admitted for acute respiratory failure 2/2 covid 19 pneumonia s/p trach and PEG this admission with PEG placed 1/ Tube feeds running at goal some persistent LUQ pain in abdomen that is tender to palpation nurse mentioned some tenderness around his PEG site earlier nurse also mentioned desaturation episodes into the low 80s with repositioning and some increased time to recruit him back to baseline when he does this. Review of Systems Review of Systems: All systems were reviewed and negative except as indicated above. Physical Exam Physical Exam: CONSTITUTIONAL: WNWD, vitals as above, NAD EYES: normal conjunctivae, no scleral icterus, ENT: external ear and nose normal, MMM, trach collar. Productive sputum out of trach with coughing spells noted. NECK: trachea midline, tracheostomy in place RESPIRATORY: coarse breath sounds throughout, no rales or wheezes CARDIOVASCULAR: regular rate and rhythm, S1 and 2 heard without murmurs, gallops or rubs, no JVD, trace peripheral edema in bilateral lower extremities CHEST: inspection of chest was normal GASTROINTESTINAL: soft, ND, TTP in LUQ area, no guarding, protuberant, some slight bruising present. PEG in place, clean and dry without surrounding redness or drainage. MUSCULOSKELETAL: generalized weakness, moves all extremities equally. SKIN: warm and dry NEUROLOGIC: CN 2-12 grossly intact, No gross focal deficit. Results & Data Results & Data ([facility]) Vital Signs (Past 12 Hours) Vital Signs Temp Pulse Pulse Resp BP Pulse Ox 04/12/21 08:00 36.9 C 84 32 H 134/68 94 04/12/21 05:29 37.0 C 80 26 H 131/67 97 04/12/21 00:45 37.1 C 74 30 H 122/62 94 Laboratory Results Short CBC 04/12/21 Range/Units 04:38 WBC 16.06 H (4.8-10.8) K/uL Hgb 7.4 L (14.0-18.0) g/dL Hct 24.0 L (42-52) % Plt Count 533 H (130-400) K/uL BMP 04/12/21 04:38 Sodium 140 Potassium 4.1 Chloride 109 H Carbon Dioxide 29 BUN 23 Creatinine 0.50 L Glucose 101 H Calcium 8.2 L Medications Administered Current Inpatient Medications Acetaminophen (Acetaminophen Susp 325 Mg/10.15 Ml Udc) 650 mg NG Q6H PRN PRN Reason: Fever or headache Stop: 05/01/21 15:28 Last Admin: 04/12/21 02:44 Dose: 650 mg Documented by: Amiodarone HCl (Amiodarone 200 Mg Tab) 200 mg PO BID17 [facility] Stop: 05/05/21 16:59 Last Admin: 04/12/21 10:04 Dose: 200 mg Documented by: Bupropion HCl (Bupropion Hcl 100 Mg Tablet) 100 mg PO TID [facility] Stop: 04/22/21 13:59 Last Admin: 04/12/21 10:03 Dose: 100 mg Documented by: Docusate Sodium (Docusate Sodium Syrup 100 Mg/10 Ml Udc) 100 mg PO BID [facility] Stop: 04/24/21 09:44 Last Admin: 04/12/21 10:11 Dose: Not Given Documented by: Enoxaparin Sodium (Enoxaparin Inj 120 Mg/0.8 Ml Syr) 111 mg SQ Q12H [facility] Stop: 04/24/21 20:59 Last Admin: 04/12/21 10:02 Dose: 111 mg Documented by: Gabapentin (Gabapentin 250 Mg/5 Ml 470 Ml Btl) 400 mg PO TID [facility] Stop: 04/23/21 08:59 Last Admin: 04/12/21 10:02 Dose: 400 mg Documented by: Guaifenesin/Codeine Phosphate (Guaifenesin/Codeine 200mg/20mg 10ml Udc) 10 ml PO Q6H PRN PRN Reason: Cough Stop: 05/10/21 15:01 Last Admin: 04/12/21 02:45 Dose: 10 ml Documented by: Heparin Sodium (Beef Lung) (Heparin 10 Unit/Ml 5 Ml Flush) 5 ml FLUSH PRN PRN PRN Reason: Flush Stop: 05/10/21 11:48 Last Admin: 04/10/21 12:13 Dose: 10 ml Documented by: Piperacillin Sod/Tazobactam (Sod 4.5 gm/ Dextrose) 120 mls @ 30 mls/hr IV Q8H [facility]; Protocol Stop: 04/18/21 17:59 Last Admin: 04/12/21 10:03 Dose: 30 mls/hr Documented by: Insulin Human Regular (Insulin Human Regular) 0 units SC Q6 [facility] Stop: 05/09/21 11:59 Last Admin: 04/12/21 06:33 Dose: 2 units Documented by: Lansoprazole (Lansoprazole 30 Mg Soltab) 30 mg NG DAILY [facility] Stop: 05/10/21 08:59 Last Admin: 04/12/21 10:03 Dose: 30 mg Documented by: Metoprolol Tartrate (Metoprolol Tartrate 25 Mg Tab) 25 mg PO BID [facility] Stop: 05/08/21 10:59 Last Admin: 04/12/21 10:03 Dose: 25 mg Documented by: Miscellaneous Information (Pharmacy Glycemic Mgmt Consult) 1 ea N/A UD PRN PRN Reason: Consult Stop: 05/01/21 09:50 Miscellaneous Information (Piperacill/Tazobac Consult Active) 1 ea N/A UD PRN PRN Reason: Consult Stop: 05/11/21 11:52 Nutritional Formula (Peptamen Intense Vhp 1.0 Nelson 1,000 Ml Bag) 1,000 ml OG UD [facility]; Protocol Stop: 05/05/21 11:14 Last Admin: 04/12/21 02:44 Dose: 1,000 ml Documented by: Oxycodone HCl (Oxycodone Hcl Soln 5 Mg/5 Ml Udc) 5 mg PO BID [facility] Stop: 04/23/21 08:59 Last Admin: 04/12/21 10:05 Dose: 5 mg Documented by: Sennosides (Sennosides 8.8 Mg/5 Ml Udc) 17.6 mg PO QAM [facility] Stop: 04/22/21 08:59 Last Admin: 04/12/21 10:11 Dose: Not Given Documented by: Sterile Water (Tube Feeding Water Flush) 30 ml OG Q4H [facility] Stop: 04/20/21 15:59 Last Admin: 04/12/21 08:00 Dose: 30 ml Documented by:
[2021-04-13] MEDS: INSULIN HUMAN REGULAR SC SCH ×4 (00:08→18:13)
[2021-04-13] MEDS: TUBE FEEDING WATER FLUSH OG SCH ×6 (00:10→20:32)
[2021-04-13] MEDS: PIPERACILLIN/TAZOBACTAM 4.5 GM in DEXTROSE 5% 100 ML IV SCH ×3 (01:50→17:42)
[2021-04-13] MEDS: GABAPENTIN 250 MG/5 ML 470 ML BTL PO SCH ×3 (08:29→20:35)
[2021-04-13] MEDS: ENOXAPARIN INJ 120 MG/0.8 ML SYR SQ SCH ×2 (08:30→20:32)
[2021-04-13] MEDS: DOCUSATE SODIUM SYRUP 100 MG/10 ML UDC PO SCH ×2 (08:30→20:35)
[2021-04-13] MEDS: LANSOPRAZOLE 30 MG SOLTAB NG SCH (08:31)
[2021-04-13] MEDS: AMIODARONE 200 MG TAB PO SCH ×2 (08:31→17:45)
[2021-04-13] MEDS: METOPROLOL TARTRATE 25 MG TAB PO SCH ×2 (08:31→20:31)
[2021-04-13] MEDS: buPROPion HCl 100 MG TABLET PO SCH ×3 (08:31→20:31)
[2021-04-13] MEDS: SENNOSIDES 8.8 MG/5 ML UDC PO SCH (08:32)
[2021-04-13] MEDS: oxyCODONE HCL SOLN 5 MG/5 ML UDC PO SCH ×2 (08:33→20:31)
--- NOTE | 2021-04-13 10:36 | Communication Note ---
Date of Service: April 13, 2021 GI asked to evaluate PEG as it was reported he had some discomfort Pt appear comfortable, denies issues with PEG tube Discussed with nursing, Clayton, who denies any report of discomfort or PEG issues. If pain w/ PEG usage returns can consider KUB w/ Gastrografin to ensure good placement Recall GI as needed Thank you for allowing us to participate in the care of this patient. Please call with any acute changes, questions or concerns. Please see addendum below with additional recommendation from my supervising physician.
--- NOTE | 2021-04-13 13:40 | Pharmacy Report ---
Pharmacy Glycemic Sign Off Nt - Date of Service April 13, 2021 - Assessment & Plan ASSESSMENT: * Pharmacy was consulted by Dr Rowland on 04/01 for glycemic control and to write orders per [facility] inpatient glycemic control protocol. * Patient has been receiving/requiring ~ 11 units of insulin per day for adequate glycemic control * BSGs ranging 109-125 mg/dl * Regimen has only required minor adjustments over the past 48hrs to achieve this level of control * Do not anticipate further changes in patient status that would quickly deteriorate glycemic control (i.e. patient to be NPO for upcoming procedure, steroids tapering, starting tube feedings, etc). * Please see recommendations for outpatient antidiabetic regimen below. PLAN FOR INPATIENT GLYCEMIC CONTROL: No changes needed to current regimen. * Continue Regular Insulin per [id number] while covering for TF * Goal range = 110 140 mg/dl * CF = 20 mg/dl/unit * CR = 1 unit for ever 12 g CHO consumed * Pharmacy is signing off of glycemic consult and will no longer be making adjustments to inpatient regimen. Please feel free to re-consult if needed. Thank you.
[2021-04-13] MEDS: PEPTAMEN INTENSE VHP 1.0 CAL 1,000 ML BAG OG SCH (14:39)
--- NOTE | 2021-04-13 15:45 | Hospitalist Progress Note ---
Date of Service April 13, 2021 Assessment & Plan (1) Acute hypoxemic respiratory failure: (2) ARDS (adult respiratory distress syndrome): (3) Pneumonia due to COVID-19 virus: Plan: 2/2 covid pneumonia, remains on vent 2/2 ARDS. S/p trach and PEG. CTA-no evidence of PE. Remdesivir discontinued by pulmonary service Completed dexamethasone 10 days course Baricitinib given for 6 days but discontinued due to acute DVTs (03/06/21) Had completed abx with cefepime and doxycycline for 7 days in Dec Received an additional 7 day course of Zosyn for serratia in the sputum-early Hong Leukocytosis increasing, remains afebrile. Repeat sputum culture sent growing GNB. May be persistent serratia, but sensitivities pending. Zosyn restarted (04/11). Culture revealed repeat serratia ID consulted-recommends monitoring patient off abx, Zosyn stopped If he worsens, could consider adding Merrem and while on abx, exchanging the tracheostomy. (4) Acute DVT (deep venous thrombosis): Plan: Deep venous thrombosis posterior tibial and peroneal veins Likely provoked by COVID-19 infection & baricitinib use Patient reported family history of blood clots Cont Lovenox (5) Atrial fibrillation: Plan: Sinus rhythm. Cont with amiodarone and metoprolol. Anticoagulation with Lovenox. (6) Anxiety: Plan: has h/o PTSD per records, exhibits understandable frustration with current limitations. Doesn't appear overtly anxious today. Plan: Lovenox Full Code Dispo-LTAC Heaven Castillo DO [facility] Hospitalist Admission and Anticipated Discharge Date Admission Date: March 01, 2021 Subjective 60 yo M admitted for acute respiratory failure 2/2 covid 19 pneumonia s/p trach and PEG this admission with PEG placed 1/12 Tube feeds running at goal reports some LUQ pain in abdomen that is tender to palpation nurse mentioned some tenderness around his PEG site earlier nurse also mentioned desaturation episodes into the low 80s with repositioning and some increased time to recruit him back to baseline when he does this. frequent suctioning on trach collar weakness still present and where he can follow instructions, he cannot yet write or communicate well per who is at the bedside he is frustrated. Review of Systems Review of Systems: All systems were reviewed and negative except as indicated above. Physical Exam Physical Exam: CONSTITUTIONAL: WNWD, vitals as above, NAD EYES: normal conjunctivae, no scleral icterus, ENT: external ear and nose normal, MMM, trach collar. Productive sputum out of trach with coughing spells noted. NECK: trachea midline, tracheostomy in place RESPIRATORY: coarse breath sounds throughout, no rales or wheezes CARDIOVASCULAR: regular rate and rhythm, S1 and 2 heard without murmurs, gallops or rubs, no JVD, trace peripheral edema in bilateral lower extremities CHEST: inspection of chest was normal GASTROINTESTINAL: soft, ND, NT, no guarding, protuberant, some slight bruising present. PEG in place, clean and dry without surrounding redness or drainage. MUSCULOSKELETAL: generalized weakness, moves all extremities equally. SKIN: warm and dry NEUROLOGIC: CN 2-12 grossly intact, No gross focal deficit. Results & Data Results & Data ([facility]) Vital Signs (Past 12 Hours) Vital Signs Temp Pulse Resp BP Pulse Ox 04/13/21 14:00 84 32 H 98 04/13/21 13:00 83 44 H 87 L 04/13/21 12:01 36.9 C 74 36 H 159/97 H 86 L 04/13/21 12:00 74 34 H 88 L 04/13/21 11:00 77 17 93 04/13/21 10:00 80 34 H 95 04/13/21 09:00 94 H 41 H 04/13/21 08:00 36.5 C 95 H 36 H 160/84 H 98 04/13/21 07:00 92 H 37 H 96 04/13/21 06:00 37.5 C 04/13/21 04:00 91 H 31 H 163/85 H 91 Medications Administered Current Inpatient Medications Acetaminophen (Acetaminophen Susp 325 Mg/10.15 Ml Udc) 650 mg NG Q6H PRN PRN Reason: Fever or headache Stop: 05/01/21 15:28 Last Admin: 04/12/21 02:44 Dose: 650 mg Documented by: Amiodarone HCl (Amiodarone 200 Mg Tab) 200 mg PO BID17 [facility] Stop: 05/05/21 16:59 Last Admin: 04/13/21 08:31 Dose: 200 mg Documented by: Bupropion HCl (Bupropion Hcl 100 Mg Tablet) 100 mg PO TID [facility] Stop: 04/22/21 13:59 Last Admin: 04/13/21 14:43 Dose: 100 mg Documented by: Docusate Sodium (Docusate Sodium Syrup 100 Mg/10 Ml Udc) 100 mg PO BID [facility] Stop: 04/24/21 09:44 Last Admin: 04/13/21 08:30 Dose: Not Given Documented by: Enoxaparin Sodium (Enoxaparin Inj 120 Mg/0.8 Ml Syr) 111 mg SQ Q12H [facility] Stop: 04/24/21 20:59 Last Admin: 04/13/21 08:30 Dose: 111 mg Documented by: Gabapentin (Gabapentin 250 Mg/5 Ml 470 Ml Btl) 400 mg PO TID [facility] Stop: 04/23/21 08:59 Last Admin: 04/13/21 14:42 Dose: 400 mg Documented by: Guaifenesin/Codeine Phosphate (Guaifenesin/Codeine 200mg/20mg 10ml Udc) 10 ml PO Q6H PRN PRN Reason: Cough Stop: 05/10/21 15:01 Last Admin: 04/12/21 20:20 Dose: 10 ml Documented by: Heparin Sodium (Beef Lung) (Heparin 10 Unit/Ml 5 Ml Flush) 5 ml FLUSH PRN PRN PRN Reason: Flush Stop: 05/10/21 11:48 Last Admin: 04/10/21 12:13 Dose: 10 ml Documented by: Piperacillin Sod/Tazobactam (Sod 4.5 gm/ Dextrose) 120 mls @ 30 mls/hr IV Q8H [facility]; Protocol Stop: 04/18/21 17:59 Last Admin: 04/13/21 13:10 Dose: 30 mls/hr Documented by: Insulin Human Regular (Insulin Human Regular) 0 units SC Q6 [facility] Stop: 05/09/21 11:59 Last Admin: 04/13/21 12:34 Dose: 2 units Documented by: Lansoprazole (Lansoprazole 30 Mg Soltab) 30 mg NG DAILY [facility] Stop: 05/10/21 08:59 Last Admin: 04/13/21 08:31 Dose: 30 mg Documented by: Metoprolol Tartrate (Metoprolol Tartrate 25 Mg Tab) 25 mg PO BID [facility] Stop: 05/08/21 10:59 Last Admin: 04/13/21 08:31 Dose: 25 mg Documented by: Miscellaneous Information (Piperacill/Tazobac Consult Active) 1 ea N/A UD PRN PRN Reason: Consult Stop: 05/11/21 11:52 Nutritional Formula (Peptamen Intense Vhp 1.0 Nelson 1,000 Ml Bag) 1,000 ml OG UD [facility]; Protocol Stop: 05/05/21 11:14 Last Admin: 04/13/21 14:39 Dose: 1,000 ml Documented by: Oxycodone HCl (Oxycodone Hcl Soln 5 Mg/5 Ml Udc) 5 mg PO BID [facility] Stop: 04/23/21 08:59 Last Admin: 04/13/21 08:33 Dose: 5 mg Documented by: Sennosides (Sennosides 8.8 Mg/5 Ml Udc) 17.6 mg PO QAM [facility] Stop: 04/22/21 08:59 Last Admin: 04/13/21 08:32 Dose: Not Given Documented by: Sterile Water (Tube Feeding Water Flush) 30 ml OG Q4H [facility] Stop: 04/20/21 15:59 Last Admin: 04/13/21 12:35 Dose: 30 ml Documented by:
[2021-04-13] MEDS: guaiFENesin SUGAR FREE 200 MG/10 ML UDC PO SCH ×2 (20:32→23:41)
[2021-04-14] MEDS: TUBE FEEDING WATER FLUSH OG SCH ×6 (00:05→20:12)
[2021-04-14] MEDS: INSULIN HUMAN REGULAR SC SCH ×4 (00:14→18:12)
[2021-04-14 05:42] LABS: Hematocrit (blood only) 26.6 % (42-52); Hemoglobin 7.8 g/dL (14.0-18.0); Mean Corpuscular Hemoglobin 28.6 pg (25-34); Mean Corpuscular Hgb Conc 29.3 g/dL (32-36); Mean Corpuscular Volume 97.4 fL (80-100); Platelet Count 488 K/uL (130-400); RDW Coefficient of Variation 16.2 % (11.5-14.5); RDW Standard Deviation 56.6 fL (36.4-46.3); Red Blood Count 2.73 M/uL (4.7-6.1); White Blood Count 12.06 K/uL (4.8-10.8)
[2021-04-14] MEDS ORDERED: METOPROLOL TARTRATE 1 MG/ML VIAL IV STA ×2 (05:43→17:43)
[2021-04-14] MEDS ORDERED: METOPROLOL TARTRATE 1 MG/ML VIAL IV ONE ×2 (05:47→17:56)
[2021-04-14] MEDS: AMIODARONE 200 MG TAB PO SCH ×2 (05:57→17:27)
[2021-04-14] MEDS ORDERED: ALBUMIN 25% 12.5 GM/50 ML VIAL IV ONE (06:00)
[2021-04-14 06:05] LABS: BUN Creatinine Ratio 58.1 (10-20); Calcium 8.6 mg/dl (8.5-10.1); Creatinine Clr Calc Pharmacy 241.4 ml/min; Est GFR (African American) 147.3 ml/min; Est GFR (Non-African American) 127.1 ml/min; Potassium 3.9 mmol/L (3.5-5.1)
[2021-04-14] MEDS ORDERED: dilTIAZem HCl 5 MG/ML 5 ML VIAL IV STA ×2 (06:16→19:04)
[2021-04-14] MEDS ORDERED: POTASSIUM CHLORIDE / WTR 10 MEQ/100 ML PLCT IV ONE (06:20)
[2021-04-14] MEDS: METOPROLOL TARTRATE 25 MG TAB PO SCH ×2 (06:30→20:14)
[2021-04-14 06:57] LABS: Magnesium 2.1 mg/dl (1.7-2.4)
--- NOTE | 2021-04-14 07:13 | XRay Report ---
SINGLE VIEW CHEST CLINICAL HISTORY: Pneumonia. FINDINGS: 2 AP, portable, upright chest radiographs are compared to study dated 04/11/2021. Correlatio n is made with chest CT dated 03/30/2021. The examination is degraded by portable technique and patient rotation. A tracheostomy and right-sided PICC line are unchanged in position. The heart is enlarge d. Extensive/diffuse multifocal airspace consolidation is again seen throughout both lungs. There are small pleural effusions. No pneumothorax is seen. The bony thorax is grossly intact. Subcutaneous ga s is noted in the right lower neck. IMPRESSION: 1. Stable lines and tubes. 2. Extensive/confluent multifocal airspace consolidation is not appreciably changed from previous. 3. Cardiomegaly and small pleural effusions. ACT 112: Negative or not required by law. Electronically signed by: Jesse Peguero M.D. 04/14/2021 7:11 AM
[2021-04-14] MEDS: SENNOSIDES 8.8 MG/5 ML UDC PO SCH (07:39)
[2021-04-14] MEDS: DOCUSATE SODIUM SYRUP 100 MG/10 ML UDC PO SCH ×2 (07:39→20:12)
[2021-04-14] MEDS: PEPTAMEN INTENSE VHP 1.0 CAL 1,000 ML BAG OG SCH (07:40)
[2021-04-14] MEDS: guaiFENesin SUGAR FREE 200 MG/10 ML UDC PO SCH ×3 (07:42→20:11)
[2021-04-14] MEDS: ENOXAPARIN INJ 120 MG/0.8 ML SYR SQ SCH ×2 (07:43→20:12)
[2021-04-14] MEDS: buPROPion HCl 100 MG TABLET PO SCH ×3 (07:44→20:51)
[2021-04-14] MEDS: LANSOPRAZOLE 30 MG SOLTAB NG SCH (07:44)
[2021-04-14] MEDS: oxyCODONE HCL SOLN 5 MG/5 ML UDC PO SCH ×2 (07:46→20:16)
[2021-04-14] MEDS: GABAPENTIN 250 MG/5 ML 470 ML BTL PO SCH ×3 (07:47→20:15)
--- NOTE | 2021-04-14 11:44 | Hospitalist Progress Note ---
Date of Service April 14, 2021 Assessment & Plan (1) Acute hypoxemic respiratory failure: (2) ARDS (adult respiratory distress syndrome): (3) Pneumonia due to COVID-19 virus: Plan: 2/2 covid pneumonia, remains on vent 2/2 ARDS. S/p trach and PEG. CTA-no evidence of PE. Remdesivir discontinued by pulmonary service Completed dexamethasone 10 days course Baricitinib given for 6 days but discontinued due to acute DVTs (03/06/21) Had completed abx with cefepime and doxycycline for 7 days in Dec Received an additional 7 day course of Zosyn for serratia in the sputum-early Mar Leukocytosis down from yesterday, remains afebrile. Repeat sputum culture sent growing serratia Zosyn restarted (04/11), Stopped (04/13). Repeat serratia in culture noted ID recs monitoring off abx (4) Acute DVT (deep venous thrombosis): Plan: Deep venous thrombosis posterior tibial and peroneal veins Likely provoked by COVID-19 infection & baricitinib use Patient reported family history of blood clots Cont Lovenox (5) Atrial fibrillation: Plan: Sinus rhythm. Cont with amiodarone and metoprolol. Anticoagulation with Lovenox. (6) Anxiety: Plan: has h/o PTSD per records, exhibits understandable frustration with current limitations. Doesn't appear overtly anxious today. Plan: Lovenox Full Code Dispo-LTAC ROS-No Headache, No Visual Changes, No Nausea, No Vomiting, No Fever, No Chills, No Neck Pain or Stiffness, No Chest Pain, No Palpitations, No SOB, No MOON, No Cough, No Sputum, No Wheezing, No Abdominal Pain, No Diarrhea, No Hematemesis, No Hemoptysis, No Unexpected Weight Loss, No Flank pain, No Melena, No Hematochezia, No Frequency, No Urgency, No Burning, No Hematuria, No Rashes, No Diaphoresis. Appetite is Poor, Physical Exam Gen-AAO x 3, NAD, Afebrile, +Trach Head-NCAT, EOMI, PERRLA, Anicteric Sclera, No Posterior Pharyngeal Erythema Neck-Supple, No JVD, No Thyromegaly, No Masses, No LAD, No Bruits Lungs-Clear to Auscultation Bilaterally, No Rales, No Rhonchi, No Wheezing, No Crepitus Chest-No S4, +S1, +S2, No S3, No Murmurs, No Rubs, No Gallops, No Ectopy Abdomen-Soft, Bowel Sounds Present, Non Tender, Non Distended, No Hepatomegaly, No Splenomegaly, No Palpable Masses, No Rebound, No Rigidity, No Guarding Musculoskeletal-Full Range of Motion Bilaterally, No CVAT Extremities-No Cyanosis, No Clubbing, + B/L LE Edema 2-3+ Nuero-Cranial Nerves II-XII grossly intact, Motor WNL, DTRs WNL, Strength WNL, Non Focal Psych-Normal Mood Admission and Anticipated Discharge Date Admission Date: March 01, 2021 Subjective 60 yo M admitted for acute respiratory failure 2/2 covid 19 pneumonia s/p trach and PEG this admission with PEG placed 1/12 Tube feeds running at goal some persistent LUQ pain in abdomen that is tender to palpation nurse mentioned some tenderness around his PEG site nurse also mentioned desaturation episodes into the low 80s with repositioning and some increased time to recruit him back to baseline when he does this. Doing better than yesterday, tries to eat the protein Results & Data Results & Data ([facility]) Vital Signs (Past 12 Hours) Vital Signs Temp Pulse Resp BP Pulse Ox 04/14/21 11:00 81 33 H 162/94 H 97 04/14/21 10:30 82 34 H 150/94 H 98 04/14/21 10:00 88 33 H 169/93 H 94 04/14/21 09:31 82 36 H 158/92 H 96 04/14/21 09:01 74 31 H 164/93 H 84 L 04/14/21 09:00 97 H 23 91 04/14/21 08:30 86 38 H 141/91 H 97 04/14/21 08:01 86 39 H 153/96 H 04/14/21 08:00 36.8 C 83 35 H 04/14/21 07:30 144 H 33 H 139/108 H 98 04/14/21 07:01 145 H 24 117/81 99 04/14/21 07:00 145 H 38 H 99 04/14/21 06:45 154 H 39 H 97 04/14/21 06:31 146 H 40 H 148/116 H 97 04/14/21 06:30 146 H 38 H 97 04/14/21 06:15 142 H 36 H 92 04/14/21 06:00 148 H 37 H 155/94 H 93 04/14/21 05:59 148 H 38 H 156/105 H 93 04/14/21 05:51 150 H 133/104 H 04/14/21 05:45 147 H 40 H 91 04/14/21 05:30 146 H 38 H 133/104 H 93 04/14/21 00:00 73 32 H 98 04/13/21 23:59 76 Laboratory Results Reviewed
--- NOTE | 2021-04-14 13:52 | Electrocardiogram Report ---
Test Reason : Blood Pressure : / mmHG Vent. Rate : 146 BPM Atrial Rate : 292 BPM P-R Int : 000 ms QRS Dur : 080 ms QT Int : 232 ms P-R-T Axes : 258 018 178 degrees QTc Int : 361 ms Atrial flutter with 2:1 A-V conduction Nonspecific ST and T wave abnormality Abnormal ECG When compared with ECG of 06-APR-2021 18:18, Atrial flutter has replaced Sinus rhythm Vent. rate has increased BY [address] now depressed in Anterolateral leads T wave inversion now evident in Inferior leads T wave inversion no longer evident in Anterior leads T wave inversion now evident in Lateral leads Confirmed by Xavi Madden ([id number]) on 04/14/2021 1:52:01 PM Referred By: REFERRED SELF Confirmed By:Xavi Madden
--- NOTE | 2021-04-14 15:01 | Pulmonary Consultation ---
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 His oxygen requirements have improved, but he still is needing 50% FiO2 via tracheostomy collar. His chest x-ray demonstrates persistent bilateral infiltrates. He does appear volume overloaded on physical exam and based on his input/output. Will initiate 40 mg twice daily of IV Lasix and monitor urine output. Prior echo from earlier this hospitalization reviewed which demonstrated pulmonary hypertension based on his elevated RVSP. It should be noted that he had a DVT earlier in this course. It is conceivable that he may have had a pulmonary embolism as well. However, CT chest from 03/30/21 did now show PE. He is currently on anticoagulation, but remains anemic. His pulmonary hypertension may be multifactorial related to high-output cardiac failure given his anemia, a history of MADINA, ARDS related to COVID-19 viral pneumonia and fluid overload. We will recommend a repeat echocardiogram once patient is more euvolemic. Continue to wean FiO2 as able. Can consider downgrading the tracheostomy to a size 6 fenestrated trach in the next few days once his FiO2 requirements improve and tachypnea improves. I would recommend better control of his anxiety given his history of PTSD. CT of his neck on 03/30/2021 did reflect a possible hematoma. Subcutaneous emphysema was noted. No clinical evidence of bacterial pneumonia at this time. Procalcitonin is 0.11 ng/mL. WBC count downtrending. Secretions are improved from his tracheostomy. We will start the patient on percussive vest therapy 4 times daily to help promote mucociliary clearance. Discussed with patient's RN and RT at bedside. Thank you for the consultation. We will continue to follow along with you. History of Present Illness Reason for Consultation: Hypoxemic respiratory failure and trach dependent respiratory failure Attending Physician: Sg Lang DO History of Present Illness 60-year-old male with COVID-19 viral pneumonia who presented to the emergency department on 03/01/2021 with complaint of dry cough. During this hospitalization he was intubated for respiratory failure and ultimately underwent a tracheostomy. He received baricitinib early in the hospital course and Decadron. Tracheostomy was completed on 03/23/2021. It is difficult to u nderstand the patient as he is not able to phonate due to the tracheostomy. He denies any significant chest pain or shortness of breath at present. He does appear anxious. Per discussing with nursing and respiratory therapy, anxiety has been a significant component to his overall symptoms. He is currently on 50% FiO2 via tracheostomy collar. His respiratory rate is in the high 20s and low 30s. Pulmonary was ultimately reconsulted due to increased secretions from his tracheostomy. A virtual infectious disease consult was completed by the [facility] providers on 04/12/2021. It was not felt that the patient clearly had a superimposed infection. He did have Serratia noted from the sputum cultures and it was felt that this may be a colonizer. It was recommended to monitor the patient off antibiotics. Procalcitonin level ordered by sc resulted as 0.11 ng/mL. White count trending down to 12,000. Last ABG on 04/09/2021 was notable for evidence of respiratory alkalosis with a pH of 7.47, PCO2 of 38 and PO2 of 66. Bicarbonate 28. Chest x-ray with multifocal airspace opacities which appears relatively unchanged compared to the previous x-ray from 04/11/2021. Echo from 03/31/2021 with an LVEF of 55 to 60%. Right ventricle moderately to severely dilated. RVSP of 45 to 50 mmHg. Input and output suggests positive fluid balance of 9.519 L since admission. Hospital course was also complicated by a DVT seen in the right calf within the posterior tibial peroneal veins. Superficial venous thrombosis is present in the bilateral lower extremities as well. Allergies Allergy/AdvReac Type Severity Reaction Status Date / Time lisinopril Allergy Intermediate Angioedema Verified 02/28/21 21:58 pentazocine [From [place]] AdvReac Mild Vomiting Verified 02/28/21 21:58 Home Medications Medication Instructions Recorded Confirmed Type amlodipine 5 mg tablet (Norvasc) 5 mg PO QAM 01/14/21 02/28/21 History bupropion HCl 300 mg 24 hr tablet, 300 mg PO PM 01/14/21 02/28/21 History extended release carvedilol 6.25 mg tablet 6.25 mg PO BID 01/14/21 02/28/21 History cholecalciferol (vitamin D3) 25 25 mcg PO HS 01/14/21 02/28/21 History mcg (1,000 unit) capsule cyanocobalamin (vitamin B-12) 1,000 mcg PO HS 01/14/21 02/28/21 History 1,000 mcg capsule ezetimibe 10 mg tablet 10 mg PO QAM 01/14/21 02/28/21 History fluoxetine 40 mg capsule (Prozac) 40 mg PO QAM 01/14/21 02/28/21 History fluticasone propionate 50 2 spray INTRANASAL DAILY 01/14/21 02/28/21 History mcg/actuation nasal spray,suspension (Children's Flonase Allergy Relief) gabapentin 400 mg capsule 400 mg PO TID 01/14/21 02/28/21 History hydrochlorothiazide 25 mg tablet 25 mg PO QAM 01/14/21 02/28/21 History ketoconazole 2 % shampoo 1 applic TOPICAL Q14D 01/14/21 02/28/21 History lansoprazole 30 mg capsule,delayed 30 mg PO BID 01/14/21 02/28/21 History release hydrocodone bitartrate 10 mg 10 mg PO Q12H PRN 01/15/21 02/28/21 History capsule, oral only, extended rel 12 hr ibuprofen 200 mg tablet (Motrin IB) 200 mg PO Q6H PRN 01/15/21 02/28/21 History pseudoephedrine HCl 120 mg 120 mg PO Q12H PRN 01/15/21 02/28/21 History tablet,extended release (Sudafed 12 Hour) Patient History Medical History (Updated 04/14/21 @ 15:13 by Royce Muniz MD) Acoustic neuroma Left ear Anxiety Anxiety 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 intermittent migraines Depression GERD (gastroesophageal reflux disease) Herniated disc Lumbar/cervical > partially limitation cervical ROM per pt Hyperlipidemia Hypertension Obesity Osteoarthritis PTSD (post-traumatic stress disorder) Hx PTSD (work-related) Pulmonary hypertension Sleep apnea No device Spinal stenosis Surgical History H/O colonoscopy H/O excision of dermoid cyst H/O knee surgery Left x1, right x2 H/O shoulder surgery Right x2 History of anesthesia reaction Difficulty with anesthesia induction with prior colonoscopies per pt History of carpal tunnel release R/L History of esophagogastroduodenoscopy (EGD) + dilation History of tooth extraction Hx laparoscopic cholecystectomy (02/01/21) Laparoscopic cholecystectomy Dr. 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 He does appear anxious. Physical Exam Physical Exam: Constitutional: Patient appears to be of their stated age. Patient is in no apparent distress. Patient is well-developed. Eyes: Pupils are equal round and reactive to light. Conjunctivae are normal. Anicteric sclera. Ears nose, mouth and throat: Tracheostomy in place. Neck: Trachea is midline. Visual inspection is normal. Respiratory: Coarse breath sounds bilaterally. Tachypneic. Cardiovascular: Regular rate and rhythm. No murmurs. 2+ pitting edema in the lower extremities bilaterally. Gastrointestinal: Normal bowel sounds, soft, nontender and nondistended. No hepatosplenomegaly noted. Musculoskeletal: No cyanosis. Patient is able to move all extremities. Skin: No rashes, warm dry and intact. Neurologic: No obvious focal neurological deficits seen. Psychiatric: Anxious appearing. Results & Data Results & Data ([facility]) Vital Signs (Past 12 Hours) Vital Signs Temp Pulse Resp BP Pulse Ox 04/14/21 11:00 81 33 H 162/94 H 97 04/14/21 10:30 82 34 H 150/94 H 98 04/14/21 10:00 88 33 H 169/93 H 94 04/14/21 09:31 82 36 H 158/92 H 96 04/14/21 09:01 74 31 H 164/93 H 84 L 04/14/21 09:00 97 H 23 91 04/14/21 08:30 86 38 H 141/91 H 97 04/14/21 08:01 86 39 H 153/96 H 04/14/21 08:00 36.8 C 83 35 H 04/14/21 07:30 144 H 33 H 139/108 H 98 04/14/21 07:01 145 H 24 117/81 99 04/14/21 07:00 145 H 38 H 99 04/14/21 06:45 154 H 39 H 97 04/14/21 06:31 146 H 40 H 148/116 H 97 04/14/21 06:30 146 H 38 H 97 04/14/21 06:15 142 H 36 H 92 04/14/21 06:00 148 H 37 H 155/94 H 93 04/14/21 05:59 148 H 38 H 156/105 H 93 04/14/21 05:51 150 H 133/104 H 04/14/21 05:45 147 H 40 H 91 04/14/21 05:30 146 H 38 H 133/104 H 93 Imaging and labs reviewed as noted above. PG Care Time/CCT Total # of Minutes Spent Total Time Spent with Patient: Total time spent is greater than 50% in coordination of care (as documented) at patient's floor/unit and/or counseling patient: Coding Level of Care Code 18051 Initial Inpt Care Lvl 3 Diagnoses ARDS (adult respiratory distress syndrome) J80 Acute hypoxemic respiratory failure J96.01 Pneumonia due to COVID-19 virus U07.1; J12.82 Pulmonary hypertension I27.20 Acute DVT (deep venous thrombosis) I82.409 Anxiety F41.9 Time Spent (min) 63
[2021-04-14] MEDS ORDERED: dilTIAZem HCl 5 MG/ML 5 ML VIAL IV ONE (18:31)
[2021-04-14] MEDS ORDERED: Nursing to Pharmacy Communication SCH (18:45)
[2021-04-14] MEDS: dilTIAZem HCL 125 MG in DEXTROSE 5% 100 ML IV SCH (20:06)
[2021-04-14] MEDS: FUROSEMIDE 40 MG/4 ML VIAL IV SCH (20:13)
[2021-04-15] MEDS: INSULIN HUMAN REGULAR SC SCH ×5 (00:54→23:39)
[2021-04-15] MEDS: PEPTAMEN INTENSE VHP 1.0 CAL 1,000 ML BAG OG SCH ×2 (00:55→16:54)
[2021-04-15] MEDS: TUBE FEEDING WATER FLUSH OG SCH ×7 (00:55→23:40)
[2021-04-15] MEDS: guaiFENesin SUGAR FREE 200 MG/10 ML UDC PO SCH ×4 (00:58→20:15)
[2021-04-15 05:05] LABS: Hematocrit (blood only) 25.3 % (42-52); Hemoglobin 7.5 g/dL (14.0-18.0); Mean Corpuscular Hemoglobin 28.8 pg (25-34); Mean Corpuscular Hgb Conc 29.6 g/dL (32-36); Mean Corpuscular Volume 97.3 fL (80-100); Mean Platelet Volume 8.8 fL (7.4-10.4); Platelet Count 404 K/uL (130-400); RDW Coefficient of Variation 16.4 % (11.5-14.5); RDW Standard Deviation 57.4 fL (36.4-46.3); White Blood Count 9.03 K/uL (4.8-10.8)
[2021-04-15 05:22] LABS: Albumin Globulin Ratio 0.8 (0.9-2); Albumin Level 2.6 gm/dl (3.4-5.0); BUN Creatinine Ratio 58.1 (10-20); Bilirubin,Total 0.3 mg/dl (0.2-1.0); Calcium 8.4 mg/dl (8.5-10.1); Creatinine Clr Calc Pharmacy 240.1 ml/min; Est GFR (African American) 147.3 ml/min; Est GFR (Non-African American) 127.1 ml/min; Globulin 3.2 gm/dl (2.5-4.0); Potassium 3.6 mmol/L (3.5-5.1); Total Protein 5.8 gm/dl (6.0-8.3)
[2021-04-15] MEDS: SENNOSIDES 8.8 MG/5 ML UDC PO SCH (07:52)
[2021-04-15] MEDS: DOCUSATE SODIUM SYRUP 100 MG/10 ML UDC PO SCH ×2 (07:52→20:16)
[2021-04-15] MEDS: AMIODARONE 200 MG TAB PO SCH ×2 (08:11→16:55)
[2021-04-15] MEDS: METOPROLOL TARTRATE 25 MG TAB PO SCH ×3 (08:11→20:16)
[2021-04-15] MEDS: LANSOPRAZOLE 30 MG SOLTAB NG SCH (08:12)
[2021-04-15] MEDS: ENOXAPARIN INJ 120 MG/0.8 ML SYR SQ SCH ×2 (08:13→20:15)
[2021-04-15] MEDS: FUROSEMIDE 40 MG/4 ML VIAL IV SCH ×2 (08:13→20:17)
[2021-04-15] MEDS: buPROPion HCl 100 MG TABLET PO SCH ×3 (08:14→20:17)
[2021-04-15] MEDS: GABAPENTIN 250 MG/5 ML 470 ML BTL PO SCH ×3 (08:14→20:19)
[2021-04-15] MEDS: oxyCODONE HCL SOLN 5 MG/5 ML UDC PO SCH ×2 (08:15→20:19)
--- NOTE | 2021-04-15 10:08 | Hospitalist Progress Note ---
Date of Service April 15, 2021 Assessment & Plan (1) Acute hypoxemic respiratory failure: (2) ARDS (adult respiratory distress syndrome): (3) Pneumonia due to COVID-19 virus: Plan: 2/2 covid pneumonia, remains on vent 2/2 ARDS. s/p trach and PEG. CTA-no evidence of PE. Remdesivir discontinued by pulmonary service Completed dexamethasone 10 days course Baricitinib given for 6 days but discontinued due to acute DVTs (03/06/21) Had completed abx with cefepime and doxycycline for 7 days in Dec Received an additional 7 day course of Zosyn for serratia in the sputum-early [place] Leukocytosis now normal, remains afebrile. Repeat sputum culture sent growing serratia Zosyn restarted (04/11), Stopped (04/13). Repeat serratia in culture noted ID recs monitoring off abx (4) Acute DVT (deep venous thrombosis): Plan: Deep venous thrombosis posterior tibial and peroneal veins Likely provoked by COVID-19 infection & baricitinib use Patient reported family history of blood clots Cont Lovenox (5) Atrial fibrillation: Plan: Sinus rhythm. Cont with amiodarone and metoprolol. Anticoagulation with Lovenox. (6) Anxiety: Plan: has h/o PTSD per records, exhibits understandable frustration with current limitations. Doesn't appear overtly anxious today. Plan: Lovenox Full Code Dispo-LTAC ROS-No Headache, No Visual Changes, No Nausea, No Vomiting, No Fever, No Chills, No Neck Pain or Stiffness, No Chest Pain, No Palpitations, No SOB, No MOON, No Cough, No Sputum, No Wheezing, No Abdominal Pain, No Diarrhea, No Hematemesis, No Hemoptysis, No Unexpected Weight Loss, No Flank pain, No Melena, No Hematochezia, No Frequency, No Urgency, No Burning, No Hematuria, No Rashes, No Diaphoresis. Appetite is Poor, Physical Exam Gen-AAO x 3, NAD, Afebrile, +Trach Head-NCAT, EOMI, PERRLA, Anicteric Sclera, No Posterior Pharyngeal Erythema Neck-Supple, No JVD, No Thyromegaly, No Masses, No LAD, No Bruits Lungs-Clear to Auscultation Bilaterally, No Rales, No Rhonchi, No Wheezing, No Crepitus Chest-No S4, +S1, +S2, No S3, No Murmurs, No Rubs, No Gallops, No Ectopy Abdomen-Soft, Bowel Sounds Present, Non Tender, Non Distended, No Hepatomegaly, No Splenomegaly, No Palpable Masses, No Rebound, No Rigidity, No Guarding, +Peg Musculoskeletal-Full Range of Motion Bilaterally, No CVAT Extremities-No Cyanosis, No Clubbing, + B/L LE Edema 2-3+ Nuero-Cranial Nerves II-XII grossly intact, Motor WNL, DTRs WNL, Strength WNL, Non Focal Psych-Normal Mood Admission and Anticipated Discharge Date Admission Date: March 01, 2021 Subjective 60 yo M admitted for acute respiratory failure 2/2 covid 19 pneumonia s/p trach and PEG this admission with PEG placed 1/12 Tube feeds running at goal persistent LUQ pain in abdomen that is tender to palpation weaning now Doing better than yesterday Results & Data Results & Data ([facility]) Vital Signs (Past 12 Hours) Vital Signs Temp Pulse Resp BP Pulse Ox 04/15/21 09:00 67 22 94 04/15/21 08:21 32.8 C L 04/15/21 08:00 77 23 126/69 100 04/15/21 07:18 76 16 142/76 H 100 04/15/21 07:00 79 24 100 04/15/21 04:00 142/71 H 100 04/15/21 03:56 36.6 C 04/15/21 03:30 78 26 H 132/85 100 04/15/21 01:30 71 22 126/65 97 04/15/21 01:00 75 26 H 141/70 H 97 04/15/21 00:30 36.9 C 75 25 H 136/68 98 04/15/21 00:00 75 28 H 144/70 H 97 04/14/21 23:59 66 04/14/21 23:30 67 27 H 124/68 96 04/14/21 23:00 63 24 128/57 L 95 04/14/21 22:30 66 28 H 124/64 96
--- NOTE | 2021-04-15 10:12 | Cardiology Progress Note ---
Date of Service April 15, 2021 Assessment & Plan (1) Atrial flutter: (2) Atrial fibrillation: (3) Hypoxia: (4) Pneumonia due to COVID-19 virus: Plan: Recurrent atrial flutter with rapid ventricular response, 150 bpm, recorded yesterday. Patient currently sinus rhythm overnight. Continue metoprolol tartrate 25 mg twice daily. Patient anticoagulated with Lovenox due to right lower extremity DVT initially diagnosed 03/05/2021 and confirmed per venous duplex 04/01/2021. Consider transition to DOAC via PEG tube. Eliquis is likely the best option of the DOACs however, bioavailability may be reduced when administerd via PEG tube. If transitioned to Eliquis, 5 mg two times per day , crushed tablet suspended in D5W, is preferred to mixing or flushing with nutrition supplement. Admission and Anticipated Discharge Date Admission Date: March 01, 2021 Subjective Patient seen and examined at the bedside. Responsive, however, unable to talk due to presence of tracheostomy. Denies any palpitations or chest discomfort. Poor historian. Episode of atrial flutter recorded yesterday. Spontaneously converted to sinus rhythm after 5 mg of intravenous Lopressor, and 20 mg of intravenous Cardizem. Oral metoprolol, 25 mg twice daily initiated 04/14/2021. Review of Systems Review of Systems: Unobtainable due to mental health condition Physical Exam Constitutional: + ill appearing and + obese Respiratory: normal respiratory effort; no retractions Auscultation: no crackles, no rales, no rhonchi and no wheezes Cardiovascular: Rate/Rhythm: regular rate and regular rhythm; not tachycardic Heart Sounds: normal S1 and normal S2; no murmur Vessels: no JVD Gastrointestinal (Abdomen): Inspection/Auscultation: normal bowel sounds; abdomen not distended Percussion/Palpation: abdomen soft; abdomen nontender, no guarding and abdomen not rigid Results & Data ([facility]) Vital Signs (Past 12 Hours) Vital Signs Temp Pulse Resp BP Pulse Ox 04/15/21 09:00 67 22 94 04/15/21 08:21 32.8 C L 04/15/21 08:00 77 23 126/69 100 04/15/21 07:18 76 16 142/76 H 100 04/15/21 07:00 79 24 100 04/15/21 04:00 142/71 H 100 04/15/21 03:56 36.6 C 04/15/21 03:30 78 26 H 132/85 100 04/15/21 01:30 71 22 126/65 97 04/15/21 01:00 75 26 H 141/70 H 97 04/15/21 00:30 36.9 C 75 25 H 136/68 98 04/15/21 00:00 75 28 H 144/70 H 97 04/14/21 23:59 66 04/14/21 23:30 67 27 H 124/68 96 04/14/21 23:00 63 24 128/57 L 95 04/14/21 22:30 66 28 H 124/64 96
[2021-04-15] MEDS ORDERED: POTASSIUM CHLORIDE 20 MEQ/15 ML UDC PO STA (12:55)
[2021-04-15] MEDS ORDERED: POTASSIUM CHLORIDE 20 MEQ/15 ML UDC PO SCH (12:55)
[2021-04-15] MEDS ORDERED: MIDAZOLAM HCL 1 MG/ML 2ML VIAL ONE (14:04)
[2021-04-15] MEDS ORDERED: LORazepam 1 MG/2 ML VIAL IV PRN ×2 (17:57→19:14)
[2021-04-15] MEDS: dilTIAZem HCL 125 MG in DEXTROSE 5% 100 ML IV SCH (20:12)
--- NOTE | 2021-04-15 22:44 | Pulmonology Progress Note ---
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 O2 requirements continue to come down. I believe he is responding well to diurese. Continue with 40 mg IV lasix BID for now. I replaced his K today with 40 meq of K elixir. RVSP elevated on echo likely from volume overload and a possible component of group III phtn. Recommend repeat echo in a month or two. Will consider downgrading trach to fenestrated size 6 in the next day or two if O2 requirements and respiratory secretions remain stable and improved. Will ask speech therapy to see. Continue vest QID. No clear indications of bacterial pna at present. CXR findings likely residual covid related and volume overload. Thank you for the consultation. We will continue to follow along with you. Admission and Anticipated Discharge Date Admission Date: March 01, 2021 Subjective Continues to do well on trach collar and decreased to 35% fio2 this afternoon. Urine output difficult to assess as the patient does not have a [place]. Patient denies compliant. Appears less anxious today. Review of Systems Review of Systems: Review of systems is limited due to the patient's tracheostomy status, but the patient denies any obvious complaints of pain. Physical Exam Physical Exam: Constitutional: Patient appears to be of their stated age. Patient is in no apparent distress. Patient is well-developed. Eyes: Pupils are equal round and reactive to light. Conjunctivae are normal. Anicteric sclera. Ears nose, mouth and throat: Tracheostomy in place. Neck: Trachea is midline. Visual inspection is normal. Respiratory: Coarse breath sounds bilaterally. Tachypneic. Cardiovascular: Regular rate and rhythm. No murmurs. 2+ pitting edema in the lower extremities bilaterally. Gastrointestinal: Normal bowel sounds, soft, nontender and nondistended. No hepatosplenomegaly noted. Musculoskeletal: No cyanosis. Patient is able to move all extremities. Skin: No rashes, warm dry and intact. Neurologic: No obvious focal neurological deficits seen. Psychiatric: Good eye contact. Mood is good. Results & Data Results & Data ([facility]) Vital Signs (Past 12 Hours) Vital Signs Temp Pulse Resp BP Pulse Ox 04/15/21 22:00 53 L 24 114/60 98 04/15/21 21:00 37.0 C 61 22 106/68 99 04/15/21 20:30 70 24 111/66 95 04/15/21 20:00 76 22 126/69 94 04/15/21 19:00 65 26 H 131/68 93 04/15/21 18:30 66 33 H 116/65 95 04/15/21 18:00 61 26 H 95/65 L 91 04/15/21 17:30 59 L 31 H 115/57 L 84 L 04/15/21 17:00 58 L 24 108/52 L 90 04/15/21 16:30 64 28 H 99/59 L 90 04/15/21 16:15 63 28 H 91 04/15/21 16:10 37.0 C 04/15/21 16:00 67 23 107/59 L 93 04/15/21 15:45 78 28 H 86 L 04/15/21 15:30 86 30 H 111/65 90 04/15/21 15:15 85 27 H 91 04/15/21 15:01 89 25 H 107/62 93 04/15/21 15:00 87 31 H 95 04/15/21 14:45 89 30 H 90 04/15/21 14:30 86 31 H 110/67 93 04/15/21 14:15 153 H 29 H 84 L 04/15/21 14:13 150 H 59 H 124/55 L 81 L 04/15/21 14:00 142 H 33 H 76 L 04/15/21 13:45 147 H 34 H 76 L 04/15/21 13:30 137 H 55 H 118/93 98 04/15/21 13:15 157 H 25 H 96 04/15/21 13:00 153 H 23 116/81 97 04/15/21 12:45 152 H 28 H 94 04/15/21 12:30 153 H 26 H 92 04/15/21 12:15 86 20 04/15/21 12:00 73 23 129/79 96 04/15/21 11:09 36.6 C 04/15/21 11:00 69 22 96 vital signs, labs and imaging reviewed. PG Care Time/CCT Total # of Minutes Spent Total Time Spent with Patient: Total time spent is greater than 50% in coordination of care (as documented) at patient's floor/unit and/or counseling patient: Coding Level of Care Code 93580 Subseq Hosp Care Lvl 3 Diagnoses ARDS (adult respiratory distress syndrome) J80 Acute hypoxemic respiratory failure J96.01 Pneumonia due to COVID-19 virus U07.1; J12.82 Pulmonary hypertension I27.20 Acute DVT (deep venous thrombosis) I82.409 Anxiety F41.9
[2021-04-16] MEDS: guaiFENesin SUGAR FREE 200 MG/10 ML UDC PO SCH ×3 (02:23→13:09)
[2021-04-16] MEDS: TUBE FEEDING WATER FLUSH OG SCH ×5 (04:24→20:34)
[2021-04-16 05:24] LABS: Hematocrit (blood only) 25.1 % (42-52); Hemoglobin 7.4 g/dL (14.0-18.0); Mean Corpuscular Hemoglobin 28.7 pg (25-34); Mean Corpuscular Hgb Conc 29.5 g/dL (32-36); Mean Corpuscular Volume 97.3 fL (80-100); Mean Platelet Volume 9.1 fL (7.4-10.4); Platelet Count 374 K/uL (130-400); RDW Coefficient of Variation 16.6 % (11.5-14.5); RDW Standard Deviation 57.7 fL (36.4-46.3); Red Blood Count 2.58 M/uL (4.7-6.1); White Blood Count 7.78 K/uL (4.8-10.8)
[2021-04-16 05:42] LABS: Albumin Globulin Ratio 0.8 (0.9-2); Albumin Level 2.5 gm/dl (3.4-5.0); BUN Creatinine Ratio 70.5 (10-20); Bilirubin,Total 0.3 mg/dl (0.2-1.0); Calcium 8.2 mg/dl (8.5-10.1); Creatinine Clr Calc Pharmacy 234.7 ml/min; Est GFR (African American) 145.9 ml/min; Est GFR (Non-African American) 125.9 ml/min; Globulin 3.2 gm/dl (2.5-4.0); Potassium 3.4 mmol/L (3.5-5.1); Total Protein 5.7 gm/dl (6.0-8.3)
[2021-04-16] MEDS: INSULIN HUMAN REGULAR SC SCH ×3 (05:54→18:07)
--- NOTE | 2021-04-16 07:41 | Critical Care Progress Note ---
Date of Service April 16, 2021 Assessment & Plan (1) ARDS (adult respiratory distress syndrome): Plan: PLAN: Neuro: ICU encephalopathy -Likely secondary to recent critical illness Depression -Mental health consult to optimize antidepressants -Continue Wellbutrin 100 mg 3 times daily -Add liquid Prozac 20mg x1 week and then increase to 40mg daily -If patient engages in self injures behavior such as discontinuing oxygen would place one-to-one sitter -Attempt to avoid restraints to help with mental reorientation Resp: Acute hypoxic respiratory failure secondary to COVID-19 pneumonia -Decreasing oxygen requirements, maintaining on 40% FiO2 or less -Decreased trach to 6 fenestrated -Speech consult today CV: Atrial fibrillation atrial flutter -Currently normal sinus rhythm -Think there is likelihood for this to recur when the patient becomes hypoxic -Metoprolol 25 mg twice daily -Amiodarone 200 mg twice daily -Systemic anticoagulation Lovenox 111 mg every 12 hours -Patient will be in monitored setting, acute DVTs likely provoked secondary to critical illness versus baricitinib will transition to warfarin secondary to concerns of bioavailability with current enteral administration limitations -Cardiology recommendations reviewed Fluids/Renal: Goal to remain net negative ID: Afebrile, white count within normal limits continue off antibiotics at this time GI/Nutrition: Continue tube feedings -Monitor LFTs weekly especially with addition of oxandrolone ICU cachexia -Discussed risks and benefits including thrombosis, neuropsychiatric implications, concerns for prostate malignancy with -Given degree of illness and patient's focus on avoiding disability and functional recovery, benefits outweigh risk -10 mg oxandrolone daily Bowel regimen -Docusate Heme: Anemia -Starting iron and vitamin C -Previously on B12 reports he had significant deficiency will add weekly B12 DVT prophylaxis: Lovenox twice daily transitioning to Coumadin Endocrine: ICU hyperglycemia protocol Vascular access: Peripheral IVs Code Status: Full code Disposition: Stable for downgrade to med telemetry. I believe the patient is stable for transfer to LTAC should open bed arise. (2) Acute hypoxemic respiratory failure: (3) Pneumonia due to COVID-19 virus: (4) Pulmonary hypertension: (5) Acute DVT (deep venous thrombosis): (6) Anxiety: Admission and Anticipated Discharge Date Admission Date: March 01, 2021 Supervising Physician Co-Signing Physician Notes Dr. López was resident physician during care of patient. I separately evaluated patient for rosa portions of the history and the exam. I was present during the critical portion of medical decision making, and I discussed the case with the resident. I generally agree with the findings and plan. Had extensive discussion with the patient's regarding goals of care and current trajectory. All in agreement with current treatment plan as outlined above. Specifically discussed risk benefits of oxandrolone. We will have mental health evaluate patient to optimize antidepressant medication. Also had extensive discussion with the patient who seem to understand and appreciate severity of illness and likelihood for reasonable functional recovery. Shook his head yes that he was initially desiring to discontinue medical care. I do feel that the patient is likely depressed at this time. reports that he has positively responded to the patient's daughter and we will hopefully utilize her moving forward in motivating the patient to continue with aggressive therapies. Patient's critical care needs have largely resolved [facility] and I believe it is reasonable to transfer to LTAC should a open bed arise. Subjective Yesterday patient was expressing wishes to discontinue care self discontinuing oxygen. Treatment team also discussed with , who felt he was not in normal mental state i.e. depressed or delirious. She reported patient was unaware of reason for hospitalization had not had to be reoriented to the last 7 weeks of hospital course. Review of Systems Review of Systems: Denies pain Physical Exam Physical Exam: General: Alert. nontoxic. Following simple commands Skin: Warm, dry, Head: Atraumatic Ears, nose, mouth and throat: airway patent, tracheostomy in place Cardiovascular: Normal peripheral perfusion, normal sinus rhythm Respiratory: no respiratory distress, strong cough Gastrointestinal: Non distended Musculoskeletal: No deformity Results & Data Results & Data ([facility]) Vital Signs (Past 12 Hours) Vital Signs Temp Pulse Resp BP Pulse Ox 04/16/21 06:00 79 19 125/87 99 04/16/21 05:00 68 19 128/75 99 04/16/21 04:00 37 C 66 19 125/74 100 04/16/21 03:00 66 20 132/66 100 04/16/21 02:00 58 L 22 129/68 93 04/16/21 01:00 67 21 127/70 98 04/16/21 00:00 36.8 C 61 20 119/66 94 04/15/21 23:00 60 22 110/67 98 04/15/21 22:00 53 L 24 114/60 98 04/15/21 21:00 37.0 C 61 22 106/68 99 04/15/21 20:30 70 24 111/66 95 04/15/21 20:00 76 22 126/69 94 Critical Care Results & Data Vital Signs (Past 12 Hours) Vital Signs Temp Pulse Resp BP Pulse Ox 04/16/21 06:00 79 19 125/87 99 04/16/21 05:00 68 19 128/75 99 04/16/21 04:00 37 C 66 19 125/74 100 04/16/21 03:00 66 20 132/66 100 04/16/21 02:00 58 L 22 129/68 93 04/16/21 01:00 67 21 127/70 98 04/16/21 00:00 36.8 C 61 20 119/66 94 04/15/21 23:00 60 22 110/67 98 04/15/21 22:00 53 L 24 114/60 98 04/15/21 21:00 37.0 C 61 22 106/68 99 04/15/21 20:30 70 24 111/66 95 04/15/21 20:00 76 22 126/69 94 Lab & Micro Results (Past 24 Hours) RBC 2.58 M/uL (4.7-6.1) L 04/16/21 WBC 7.78 K/uL (4.8-10.8) 04/16/21 Hgb 7.4 g/dL (14.0-18.0) L 04/16/21 Hct 25.1 % (42-52) L 04/16/21 MCV 97.3 fL (80-100) 04/16/21 MCH 28.7 pg (25-34) 04/16/21 MCHC 29.5 g/dL (32-36) L 04/16/21 RDW Standard Deviation 57.7 fL (36.4-46.3) H 04/16/21 RDW Coefficient of Variation 16.6 % (11.5-14.5) H 04/16/21 Plt Count 374 K/uL (130-400) 04/16/21 MPV 9.1 fL (7.4-10.4) 04/16/21 Na 140 mmol/L (136-145) 04/16/21 K 3.4 mmol/L (3.5-5.1) L 04/16/21 Cl 101 mmol/L (98-107) 04/16/21 CO2 38 mmol/L (21-32) H 04/16/21 Anion Gap 1 (3-11) L 04/16/21 BUN 31 mg/dl (6-23) H 04/16/21 Creatinine 0.44 mg/dl (0.6-1.4) L 04/16/21 Estimated GFR ( Amer) 145.9 ml/min 04/16/21 Estimated GFR (Non-Af Amer) 125.9 ml/min 04/16/21 BUN/Creatinine Ratio 70.5 (10-20) H 04/16/21 Glu 94 mg/dl (70-99(Fasting)) 04/16/21 Ca 8.2 mg/dl (8.5-10.1) L 04/16/21 Total Bilirubin 0.3 mg/dl (0.2-1.0) 04/16/21 AST 13 U/L (13-39) 04/16/21 ALT 17 U/L (7-52) 04/16/21 Alkaline Phosphatase 53 U/L (34-104) 04/16/21 TP 5.7 gm/dl (6.0-8.3) L 04/16/21 Albumin 2.5 gm/dl (3.4-5.0) L 04/16/21 Globulin 3.2 gm/dl (2.5-4.0) 04/16/21 Albumin/Globulin Ratio 0.8 (0.9-2) L 04/16/21 Calcium Level 8.2 mg/dl (8.5-10.1) L 04/16/21 05:00 04/16/21 I & O Totals 24 Hours 04/15/21 04/16/21 04/17/21 06:59 06:59 06:59 Intake Total 1891.916 / 4094.306 1620.750 / 6635.750 Output Total 902 / 902 Balance 1888.916 / 7692.264 0099.750 / 5733.750 Cumulative 02/28/21 20:05 thru 04/16/21 06:00 Intake Total 38394.284 Output Total 94753 Balance 60115.284 RT Ventilator Mngmt (Last Documented) Ventilator Ordered Settings Ventilator Support Mode PRVC 04/10/21 08:00 Respiratory Rate 19 04/16/21 06:00 Ventilator Tidal Volume 400 04/10/21 08:00 Setting Minute Ventilation 16 04/10/21 05 :36 Ventilator Positive Pressure 12 04/09/21 11:19 Support Setting Positive End Expiratory 5 04/10/21 08:00 Pressure Fraction of Inspired Oxygen 50 04/16/21 06:00 Peak Inspiratory Flow 42 03/25/21 16:49 Machine Comment found on RR 04/07/21 14:45 Ventilator - PT Measurements Respiratory Rate 19 Exhaled Tidal Volume 405 Minute Ventilation 16 Peak Inspiratory Airway 25 Pressure Plateau Pressure 14.5 Respiratory Cycle Inspiratory: 1:1.5 Expiratory Ratio Inspiratory Phase Time 0.8 End-Tidal CO2 24 Static Lung Compliance 42.63 Dynamic Lung Compliance 20.25 Normal Static Lung Compliance 46.00 Patient Measurements Comment Back to [facility] at this time. Pt anxious and coughing continuously. Increased RR and low SPO2 . Resident Activity Tracking Resident Involvement: Resident Care Provided Care Provided: Adult Hospital Medicine
--- NOTE | 2021-04-16 07:44 | XRay Report ---
XR chest 1V portable CLINICAL HISTORY: post diuresis. Follow-up alveolar opacities COMPARISON STUDY: 04/14/2021 TECHNIQUE: 1 view of the chest FINDINGS: Single frontal view of the chest demonstrates the cardiomediastinal silhouette to be within normal li mits. Tracheostomy tube is again seen. Compared to previous examination, there has been interval impr ovement of diffuse interstitial and alveolar opacities bilaterally, right greater than left. There is again evidence for small left pleural effusion. There is no evidence for vascular congestion. There is no acute osseous pathology. IMPRESSION: Compared to the previous examination, there has been interval improvement of diffuse inte rstitial and alveolar opacities bilaterally. Small left pleural effusion is again seen. ACT 112: Negative or not required by law. Electronically signed by: Jose Emerson M.D. 04/16/2021 7:42 AM
[2021-04-16] MEDS ORDERED: CYANOCOBALAMIN IM STA (08:16)
[2021-04-16] MEDS ORDERED: CONSULT PHARMACY STA ×2 (08:16)
[2021-04-16] MEDS ORDERED: WARFARIN SOD 5 MG TAB PO ONE (08:32)
--- NOTE | 2021-04-16 08:46 | Billing Data ---
Date of Service April 16, 2021 Coding Level of Care Code 07418 Subseq Hosp Care Lvl 3
--- NOTE | 2021-04-16 08:48 | Procedure Note ---
Procedure Note Date of Service April 16, 2021 Note Procedure Date: Noted above Procedure: tracheostomy change Pre-procedure Diagnosis: Tracheostomy management Post-procedure Diagnosis: same as above Prior to Procedure: Attending Staff: Miko Singh DO The identity of the patient was confirmed and a bedside time out was performed. Description of Procedure: Patient was evaluated and required a tracheostomy tube change. The patient was position in the usual fashion. The tracheostomy ties were loosened. The cuff was already deflated and the old 8 DCT tracheostomy tube with removed without difficultly. The new 6 fenestrated Shiley tracheostomy tube was inserted into the tracheal opening, obturator removed. Chest rise was bilateral. Bilateral breath sounds were heard without air sounds in the abdomen. Complications: Patient tolerated the procedure well without complications. Findings: not applicable Specimens: not applicable Estimated blood loss: Zero Coding CPT Codes Pulmonary/Thoracic - Pulmonary and Thoracic: 91567 Tracheotomy tube change ([id number]) [facility] Procedure Codes (Charges) Pulmonary/Thoracic Procedure 1: Pulmonary and Thoracic: 66107 Tracheotomy tube change
--- NOTE | 2021-04-16 09:15 | Psychiatric Consultation ---
Date of Consultation April 16, 2021 Impression / Recommendations Impression 60 yo male with ARDS secondary to COVID pneumonia with prolonged ICU course with resolving encephalopathy, increasingly anxious over past few days coinciding with confusion over his hospitalization/health status and limited ability to communicate needs. timing also coincides with >1 week off Prozac. (1) Anxiety: continue Wellbutrin, agree with switch to shorter acting given peg admin restart Prozac liquid--will defer to ICU team for order given amiodarone is also a cy inhibitor. Would recommend Prozac 20 mg for 1 week then 40 mg previous dose if able. Would not push dose to 60 mg until further in recovery if at all given drug -drug interactions with amiodarone and hx of thrombosis. Would still prefer Prozac to Zoloft or Lexapro if able as has failed 3 prior antidepressants and this has done well for him for years. would benefit from resuming with [facility] when able to step down to outpatient services. Psych History Identifying Data 60 yo male with a history of non specific anxiety admit on 03/01/21 for complications of COVID pneumonia, progressed to ARDS, now with trach collar and peg tube feeds awaiting subacute placement. Chief Complaint consult is for optimization of psych meds per Dr. Singh. History of Present Illness The patient has had a complicated medical course with ICU encephalopathy in addition to respiratory issues, had an EEG consistent with encephalopathy on 04/05/20. At one point his Prozac was stopped after transitioning to liquid for peg earlier this month, likely due to concerns for AMS, polypharmacy, and potential drug drug interactions. Since 04/13/21 the patient has seemed more anxious, ringing call oseguera alot, throwing pillows seemingly as more alert but not remembering or understanding why he is here. At times he was removing his oxygen, now has a trach and was cooperative with procedure to switch to a smaller size this am. 02 requirements have been decreasing. He is able to nod and write simple words at this point and indicates he was frustrated. reports he believed he was waking up from back surgery. IV Ativan is ordered but I don't see any recent administration. He indicates his depression has increased but today he is feeling OK, good. 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 He has been tried on Paxil (increased HR) and 2 SNRIs (Effexor and Cymbalta) which were not helpful. He has been stable on Wellbutrin and Prozac for years and this has been the "best combination". He did benefit from 6 sessions with a [facility] psychologist, states insurance would not pay to continue so sounds like may have been through employee assistance program. She indicates they would be willing to pay peñaloza to be seen again. Occasionally has also taken prn Ativan under the direction of Dr. Dodge. Past Psychiatric History Outpatient Services: none currently other than PCP Previous Psych Admissions: none History of Previous Suicide Attempt: No Past Medication Trials: as above Allergies Allergy/AdvReac Type Severity Reaction Status Date / Time lisinopril Allergy Intermediate Angioedema Verified 02/28/21 21:58 pentazocine [From [place]] AdvReac Mild Vomiting Verified 02/28/21 21:58 Home Medications Medication Instructions Recorded Confirmed Type amlodipine 5 mg tablet (Norvasc) 5 mg PO QAM 01/14/21 02/28/21 History bupropion HCl 300 mg 24 hr tablet, 300 mg PO PM 01/14/21 02/28/21 History extended release carvedilol 6.25 mg tablet 6.25 mg PO BID 01/14/21 02/28/21 History cholecalciferol (vitamin D3) 25 25 mcg PO HS 01/14/21 02/28/21 History mcg (1,000 unit) capsule cyanocobalamin (vitamin B-12) 1,000 mcg PO HS 01/14/21 02/28/21 History 1,000 mcg capsule ezetimibe 10 mg tablet 10 mg PO QAM 01/14/21 02/28/21 History fluoxetine 40 mg capsule (Prozac) 40 mg PO QAM 01/14/21 02/28/21 History fluticasone propionate 50 2 spray INTRANASAL DAILY 01/14/21 02/28/21 History mcg/actuation nasal spray,suspension (Children's Flonase Allergy Relief) gabapentin 400 mg capsule 400 mg PO TID 01/14/21 02/28/21 History hydrochlorothiazide 25 mg tablet 25 mg PO QAM 01/14/21 02/28/21 History ketoconazole 2 % shampoo 1 applic TOPICAL Q14D 01/14/21 02/28/21 History lansoprazole 30 mg capsule,delayed 30 mg PO BID 01/14/21 02/28/21 History release hydrocodone bitartrate 10 mg 10 mg PO Q12H PRN 01/15/21 02/28/21 History capsule, oral only, extended rel 12 hr ibuprofen 200 mg tablet (Motrin IB) 200 mg PO Q6H PRN 01/15/21 02/28/21 History pseudoephedrine HCl 120 mg 120 mg PO Q12H PRN 01/15/21 02/28/21 History tablet,extended release (Sudafed 12 Hour) Personal History Highest Grade Completed: College Beliefs That Will Affect Care: None Patient History Medical History Acoustic neuroma Left ear Anxiety Anxiety 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 intermittent migraines Depression GERD (gastroesophageal reflux disease) Herniated disc Lumbar/cervical > partially limitation cervical ROM per pt Hyperlipidemia Hypertension Obesity Osteoarthritis PTSD (post-traumatic stress disorder) Hx PTSD (work-related) Pulmonary hypertension Sleep apnea No device Spinal stenosis Surgical History H/O colonoscopy H/O excision of dermoid cyst H/O knee surgery Left x1, right x2 H/O shoulder surgery Right x2 History of anesthesia reaction Difficulty with anesthesia induction with prior colonoscopies per pt History of carpal tunnel release R/L History of esophagogastroduodenoscopy (EGD) + dilation History of tooth extraction Hx laparoscopic cholecystectomy (02/01/21) Laparoscopic cholecystectomy Dr. Lorenzo 02/01/2021 Family History Mother Colorectal cancer Father Diabetes Hypertension Social History Smoking Status: Never smoker Second Hand Exposure: No; Hx Alcohol Use: Yes Alcohol type: beer and hard liquor Hx Substance Use: No Preferred Language: Serbian Communication Ability: Effective Can Sealer Required: No Beliefs That Will Affect Care: None marital status: Current Living Situation: Spouse current occupational status: employed and retired How many Children do You have: 2 Feels Safe at Home: Yes during the past year weight has: remained stable Assistive Devices: Oxygen - Continuous Physical Exam Psychiatric: Orientation: alert, oriented to person and oriented to place Eye Contact: + fair eye contact Motor Behavior: no abnormal motor movements Speech: + abnormal rate/rhythm/volume of speech Affect: no depressed affect Mood: + depressed mood Thought Process: + concrete thought process Thought Content: reality based without delusions (good receptive language and responds appropriately to yes/no questions) Suicidal Thoughts: denies suicidal thoughts Homicidal Thoughts: denies homicidal thoughts Hallucinations: no auditory hallucinations and no visual hallucinations Cognition: attention grossly intact Insight: + limited insight Vital Signs (Past 24 Hours): Last Vital Signs Temp 37 C 04/16/21 04:00 Pulse 73 04/16/21 08:00 Resp 19 04/16/21 06:00 BP 125/87 04/16/21 06:00 Pulse Ox 99 04/16/21 06:00 Review of Systems All systems reviewed & are unremarkable except as noted in HPI & below Results & Data (PSY) Laboratory Results 04/16/21 04/16/21 04/16/21 Range/Units 05:52 05:00 05:00 WBC 7.78 (4.8-10.8) K/uL RBC 2.58 L (4.7-6.1) M/uL Hgb 7.4 L (14.0-18.0) g/dL Hct 25.1 L (42-52) % MCV 97.3 (80-100) fL MCH 28.7 (25-34) pg MCHC 29.5 L (32-36) g/dL RDW Std Deviation 57.7 H (36.4-46.3) fL RDW Coeff of Natali 16.6 H (11.5-14.5) % Plt Count 374 (130-400) K/uL MPV 9.1 (7.4-10.4) fL Sodium 140 (136-145) mmol/L Potassium 3.4 L (3.5-5.1) mmol/L Chloride 101 (98-107) mmol/L Carbon Dioxide 38 H (21-32) mmol/L Anion Gap 1 L (3-11) BUN 31 H (6-23) mg/dl Creatinine 0.44 L (0.6-1.4) mg/dl Est Cr Clr Drug Dosing 234.7 ml/min Est GFR ( Amer) 145.9 ml/min Est GFR (Non-Af Amer) 125.9 ml/min BUN/Creatinine Ratio 70.5 H (10-20) Glucose 94 (70-99(Fasting)) mg/dl POC Glucose 116 H (70-99) mg/dl Calcium 8.2 L (8.5-10.1) mg/dl Total Bilirubin 0.3 (0.2-1.0) mg/dl AST 13 (13-39) U/L ALT 17 (7-52) U/L Alkaline Phosphatase 53 (34-104) U/L Total Protein 5.7 L (6.0-8.3) gm/dl Albumin 2.5 L (3.4-5.0) gm/dl Globulin 3.2 (2.5-4.0) gm/dl Albumin/Globulin Ratio 0.8 L (0.9-2) 04/15/21 04/15/21 04/15/21 Range/Units 23:31 18:01 16:06 WBC (4.8-10.8) K/uL RBC (4.7-6.1) M/uL Hgb (14.0-18.0) g/dL Hct (42-52) % MCV (80-100) fL MCH (25-34) pg MCHC (32-36) g/dL RDW Std Deviation (36.4-46.3) fL RDW Coeff of Natali (11.5-14.5) % Plt Count (130-400) K/uL MPV (7.4-10.4) fL Sodium (136-145) mmol/L Potassium (3.5-5.1) mmol/L Chloride (98-107) mmol/L Carbon Dioxide (21-32) mmol/L Anion Gap (3-11) BUN (6-23) mg/dl Creatinine (0.6-1.4) mg/dl Est Cr Clr Drug Dosing ml/min Est GFR ( Amer) ml/min Est GFR (Non-Af Amer) ml/min BUN/Creatinine Ratio (10-20) Glucose (70-99(Fasting)) mg/dl POC Glucose 114 H 106 H 122 H (70-99) mg/dl Calcium (8.5-10.1) mg/dl Total Bilirubin (0.2-1.0) mg/dl AST (13-39) U/L ALT (7-52) U/L Alkaline Phosphatase (34-104) U/L Total Protein (6.0-8.3) gm/dl Albumin (3.4-5.0) gm/dl Globulin (2.5-4.0) gm/dl Albumin/Globulin Ratio (0.9-2) 04/15/21 Range/Units 11:54 WBC (4.8-10.8) K/uL RBC (4.7-6.1) M/uL Hgb (14.0-18.0) g/dL Hct (42-52) % MCV (80-100) fL MCH (25-34) pg MCHC (32-36) g/dL RDW Std Deviation (36.4-46.3) fL RDW Coeff of Natali (11.5-14.5) % Plt Count (130-400) K/uL MPV (7.4-10.4) fL Sodium (136-145) mmol/L Potassium (3.5-5.1) mmol/L Chloride (98-107) mmol/L Carbon Dioxide (21-32) mmol/L Anion Gap (3-11) BUN (6-23) mg/dl Creatinine (0.6-1.4) mg/dl Est Cr Clr Drug Dosing ml/min Est GFR ( Amer) ml/min Est GFR (Non-Af Amer) ml/min BUN/Creatinine Ratio (10-20) Glucose (70-99(Fasting)) mg/dl POC Glucose 115 H (70-99) mg/dl Calcium (8.5-10.1) mg/dl Total Bilirubin (0.2-1.0) mg/dl AST (13-39) U/L ALT (7-52) U/L Alkaline Phosphatase (34-104) U/L Total Protein (6.0-8.3) gm/dl Albumin (3.4-5.0) gm/dl Globulin (2.5-4.0) gm/dl Albumin/Globulin Ratio (0.9-2) Diagnostic Findings nl Qtc Medications Administered Acetaminophen (Acetaminophen Susp 325 Mg/10.15 Ml Udc) 650 mg NG Q6H PRN PRN Reason: Fever or headache Stop: 05/01/21 15:28 Last Admin: 04/12/21 02:44 Dose: 650 mg Documented by: [id number] Amiodarone HCl (Amiodarone 200 Mg Tab) 200 mg PO BID17 RICARDO Stop: 05/14/21 05:44 Last Admin: 04/15/21 16:55 Dose: 200 mg Documented by: [id number] Admin: 04/15/21 08:11 Dose: 200 mg Documented by: [id number] Admin: 04/14/21 17:27 Dose: 200 mg Documented by: [id number] Admin: 04/14/21 05:57 Dose: 200 mg Documented by: [id number] Bupropion HCl (Bupropion Hcl 100 Mg Tablet) 100 mg PO TID RICARDO Stop: 04/22/21 13:59 Last Admin: 04/15/21 20:17 Dose: 100 mg Documented by: [id number] Admin: 04/15/21 15:00 Dose: 100 mg Documented by: [id number] Admin: 04/15/21 08:14 Dose: 100 mg Documented by: [id number] Admin: 04/14/21 20:51 Dose: 100 mg Documented by: [id number] Admin: 04/14/21 13:50 Dose: 100 mg Documented by: [id number] Admin: 04/14/21 07:44 Dose: 100 mg Documented by: [id number] Admin: 04/13/21 20:31 Dose: 100 mg Documented by: [id number] Admin: 04/13/21 14:43 Dose: 100 mg Documented by: [id number] Admin: 04/13/21 08:31 Dose: 100 mg Documented by: [id number] Admin: 04/12/21 20:21 Dose: 100 mg Documented by: [id number] Admin: 04/12/21 13:42 Dose: 100 mg Documented by: [id number] Admin: 04/12/21 10:03 Dose: 100 mg Documented by: [id number] Admin: 04/11/21 20:52 Dose: 100 mg Documented by: [id number] Admin: 04/11/21 13:24 Dose: 100 mg Documented by: [id number] Admin: 04/11/21 07:52 Dose: 100 mg Documented by: [id number] Admin: 04/10/21 20:02 Dose: 100 mg Documented by: [id number] Admin: 04/10/21 15:13 Dose: 100 mg Documented by: [id number] Admin: 04/10/21 07:52 Dose: 100 mg Documented by: [id number] Admin: 04/09/21 20:04 Dose: 100 mg Documented by: [id number] Admin: 04/09/21 14:57 Dose: 100 mg Documented by: [id number] Admin: 03/30/21 08:49 Dose: 100 mg Documented by: [id number] Admin: 03/29/21 20:46 Dose: 100 mg Documented by: [id number] Admin: 03/29/21 13:10 Dose: 100 mg Documented by: [id number] Admin: 03/29/21 08:00 Dose: 100 mg Documented by: [id number] Admin: 03/28/21 20:32 Dose: 100 mg Documented by: [id number] Admin: 03/28/21 14:19 Dose: 100 mg Documented by: [id number] Admin: 03/28/21 09:11 Dose: 100 mg Documented by: [id number] Admin: 03/27/21 20:05 Dose: 100 mg Documented by: [id number] Admin: 03/27/21 16:23 Dose: 100 mg Documented by: [id number] Admin: 03/27/21 08:22 Dose: 100 mg Documented by: [id number] Admin: 03/26/21 20:20 Dose: 100 mg Documented by: [id number] Admin: 03/26/21 14:43 Dose: 100 mg Documented by: [id number] Admin: 03/26/21 08:15 Dose: 100 mg Documented by: [id number] Admin: 03/25/21 19:59 Dose: 100 mg Documented by: [id number] Admin: 03/25/21 15:05 Dose: 100 mg Documented by: [id number] Admin: 03/25/21 09:01 Dose: 100 mg Documented by: [id number] Admin: 03/24/21 19:58 Dose: 100 mg Documented by: [id number] Admin: 03/24/21 14:56 Dose: 100 mg Documented by: [id number] Admin: 03/24/21 08:20 Dose: 100 mg Documented by: [id number] Admin: 03/23/21 20:01 Dose: 100 mg Documented by: [id number] Admin: 03/23/21 15:07 Dose: 100 mg Documented by: [id number] Docusate Sodium (Docusate Sodium Syrup 100 Mg/10 Ml Udc) 100 mg PO BID RICARDO Stop: 04/24/21 09:44 Last Admin: 04/15/21 20:16 Dose: 100 mg Documented by: [id number] Admin: 04/15/21 07:52 Dose: Not Given Documented by: [id number] Admin: 04/14/21 20:12 Dose: Not Given Documented by: [id number] Admin: 04/14/21 07:39 Dose: Not Given Documented by: [id number] Admin: 04/13/21 20:35 Dose: Not Given Documented by: [id number] Admin: 04/13/21 08:30 Dose: Not Given Documented by: [id number] Admin: 04/12/21 20:13 Dose: Not Given Documented by: [id number] Admin: 04/12/21 10:11 Dose: Not Given Documented by: [id number] Admin: 04/11/21 20:51 Dose: 100 mg Documented by: [id number] Admin: 04/11/21 07:51 Dose: 100 mg Documented by: [id number] Admin: 04/10/21 20:02 Dose: 100 mg Documented by: [id number] Admin: 04/10/21 07:51 Dose: 100 mg Documented by: [id number] Admin: 04/09/21 20:05 Dose: 100 mg Documented by: [id number] Admin: 04/09/21 08:10 Dose: 100 mg Documented by: [id number] Admin: 04/08/21 20:11 Dose: 100 mg Documented by: [id number] Admin: 04/08/21 08:18 Dose: 100 mg Documented by: [id number] Admin: 04/07/21 20:57 Dose: 100 mg Documented by: [id number] Admin: 04/07/21 07:30 Dose: Not Given Documented by: [id number] Admin: 04/06/21 20:14 Dose: 100 mg Documented by: [id number] Admin: 04/06/21 07:55 Dose: 100 mg Documented by: [id number] Admin: 04/05/21 20:47 Dose: 100 mg Documented by: [id number] Admin: 04/05/21 08:33 Dose: 100 mg Documented by: [id number] Admin: 04/04/21 20:21 Dose: 100 mg Documented by: [id number] Admin: 04/04/21 07:42 Dose: 100 mg Documented by: [id number] Admin: 04/03/21 20:20 Dose: 100 mg Documented by: [id number] Admin: 04/03/21 10:11 Dose: 100 mg Documented by: [id number] Admin: 04/02/21 19:18 Dose: 100 mg Documented by: [id number] Admin: 04/02/21 10:25 Dose: 100 mg Documented by: [id number] Admin: 04/01/21 20:22 Dose: 100 mg Documented by: [id number] Admin: 04/01/21 08:42 Dose: 100 mg Documented by: [id number] Admin: 03/31/21 20:14 Dose: 100 mg Documented by: [id number] Admin: 03/31/21 07:57 Dose: 100 mg Documented by: [id number] Admin: 03/30/21 20:12 Dose: 100 mg Documented by: [id number] Admin: 03/30/21 08:48 Dose: 100 mg Documented by: [id number] Admin: 03/29/21 20:45 Dose: 100 mg Documented by: [id number] Admin: 03/29/21 07:59 Dose: 100 mg Documented by: [id number] Admin: 03/28/21 20:32 Dose: 100 mg Documented by: [id number] Admin: 03/28/21 09:08 Dose: 100 mg Documented by: [id number] Admin: 03/27/21 20:05 Dose: 100 mg Documented by: [id number] Admin: 03/27/21 08:21 Dose: 100 mg Documented by: [id number] Admin: 03/26/21 20:21 Dose: 100 mg Documented by: [id number] Admin: 03/26/21 08:14 Dose: 100 mg Documented by: [id number] Admin: 03/25/21 19:59 Dose: 100 mg Documented by: [id number] Admin: 03/25/21 10:49 Dose: 100 mg Documented by: [id number] Enoxaparin Sodium (Enoxaparin Inj 120 Mg/0.8 Ml Syr) 111 mg SQ Q12H RICARDO Stop: 04/24/21 20:59 Last Admin: 04/15/21 20:15 Dose: 111 mg Documented by: [id number] Admin: 04/15/21 08:13 Dose: 111 mg Documented by: [id number] Admin: 04/14/21 20:12 Dose: 111 mg Documented by: [id number] Admin: 04/14/21 07:43 Dose: 111 mg Documented by: [id number] Admin: 04/13/21 20:32 Dose: 111 mg Documented by: [id number] Admin: 04/13/21 08:30 Dose: 111 mg Documented by: [id number] Admin: 04/12/21 20:21 Dose: 111 mg Documented by: [id number] Admin: 04/12/21 10:02 Dose: 111 mg Documented by: [id number] Admin: 04/11/21 20:52 Dose: 111 mg Documented by: [id number] Admin: 04/11/21 07:51 Dose: 111 mg Documented by: [id number] Admin: 04/10/21 20:02 Dose: 111 mg Documented by: [id number] Admin: 04/10/21 07:51 Dose: 120 mg Documented by: [id number] Admin: 04/09/21 20:05 Dose: 111 mg Documented by: [id number] Admin: 04/09/21 08:11 Dose: 111 mg Documented by: [id number] Admin: 04/08/21 20:12 Dose: 111 mg Documented by: [id number] Admin: 04/06/21 07:56 Dose: 111 mg Documented by: [id number] Admin: 04/05/21 20:48 Dose: 111 mg Documented by: [id number] Admin: 04/05/21 08:32 Dose: 111 mg Documented by: [id number] Admin: 04/04/21 20:21 Dose: 111 mg Documented by: [id number] Admin: 04/04/21 07:42 Dose: 111 mg Documented by: [id number] Admin: 04/03/21 20:19 Dose: 111 mg Documented by: [id number] Admin: 04/03/21 12:21 Dose: 111 mg Documented by: [id number] Admin: 04/02/21 19:50 Dose: 111 mg Documented by: [id number] Admin: 04/02/21 08:01 Dose: 111 mg Documented by: [id number] Admin: 04/01/21 20:22 Dose: 111 mg Documented by: [id number] Admin: 03/29/21 20:44 Dose: 111 mg Documented by: [id number] Admin: 03/29/21 07:59 Dose: 111 mg Documented by: [id number] Admin: 03/28/21 20:33 Dose: 111 mg Documented by: [id number] Admin: 03/28/21 09:09 Dose: 111 mg Documented by: [id number] Admin: 03/27/21 20:06 Dose: 111 mg Documented by: [id number] Admin: 03/27/21 08:20 Dose: 111 mg Documented by: [id number] Admin: 03/26/21 20:21 Dose: 111 mg Documented by: [id number] Admin: 03/26/21 08:15 Dose: 111 mg Documented by: [id number] Admin: 03/25/21 19:58 Dose: 111 mg Documented by: [id number] Furosemide (Furosemide 40 Mg/4 Ml Vial) 40 mg IV BID RICARDO Stop: 05/14/21 20:59 Last Admin: 04/15/21 20:17 Dose: 40 mg Documented by: [id number] Admin: 04/15/21 08:13 Dose: 40 mg Documented by: [id number] Admin: 04/14/21 20:13 Dose: 40 mg Documented by: [id number] Gabapentin (Gabapentin 250 Mg/5 Ml 470 Ml Btl) 400 mg PO TID RICARDO Stop: 04/23/21 08:59 Last Admin: 04/15/21 20:19 Dose: 400 mg Documented by: [id number] Admin: 04/15/21 15:06 Dose: 400 mg Documented by: [id number] Admin: 04/15/21 08:14 Dose: 400 mg Documented by: [id number] Admin: 04/14/21 20:15 Dose: 400 mg Documented by: [id number] Admin: 04/14/21 13:50 Dose: 400 mg Documented by: [id number] Admin: 04/14/21 07:47 Dose: 400 mg Documented by: [id number] Admin: 04/13/21 20:35 Dose: 400 mg Documented by: [id number] Admin: 04/13/21 14:42 Dose: 400 mg Documented by: [id number] Admin: 04/13/21 08:29 Dose: 400 mg Documented by: [id number] Admin: 04/12/21 20:24 Dose: 400 mg Documented by: [id number] Admin: 04/12/21 13:42 Dose: 400 mg Documented by: [id number] Admin: 04/12/21 10:02 Dose: 400 mg Documented by: [id number] Admin: 04/11/21 20:54 Dose: 400 mg Documented by: [id number] Admin: 04/11/21 13:24 Dose: 400 mg Documented by: [id number] Admin: 04/11/21 07:51 Dose: 400 mg Documented by: [id number] Admin: 04/10/21 20:05 Dose: 400 mg Documented by: [id number] Admin: 04/10/21 13:39 Dose: 400 mg Documented by: [id number] Admin: 04/10/21 07:52 Dose: 400 mg Documented by: [id number] Admin: 04/09/21 20:10 Dose: 400 mg Documented by: [id number] Admin: 04/09/21 14:58 Dose: 400 mg Documented by: [id number] Admin: 04/09/21 08:12 Dose: 400 mg Documented by: [id number] Admin: 04/08/21 20:15 Dose: 400 mg Documented by: [id number] Admin: 04/08/21 13:20 Dose: 400 mg Documented by: [id number] Admin: 04/08/21 08:20 Dose: 400 mg Documented by: [id number] Admin: 04/07/21 21:04 Dose: 400 mg Documented by: [id number] Admin: 04/07/21 14:13 Dose: Not Given Documented by: [id number] Admin: 04/07/21 12:06 Dose: Not Given Documented by: [id number] Admin: 04/06/21 20:13 Dose: 400 mg Documented by: [id number] Admin: 04/06/21 13:55 Dose: 400 mg Documented by: [id number] Admin: 04/06/21 07:55 Dose: 400 mg Documented by: [id number] Admin: 04/05/21 20:47 Dose: 400 mg Documented by: [id number] Admin: 04/05/21 14:06 Dose: 400 mg Documented by: [id number] Admin: 04/05/21 08:33 Dose: 400 mg Documented by: [id number] Admin: 04/04/21 20:21 Dose: 400 mg Documented by: [id number] Admin: 04/04/21 13:23 Dose: 400 mg Documented by: [id number] Admin: 04/04/21 07:50 Dose: 400 mg Documented by: [id number] Admin: 04/03/21 20:18 Dose: 400 mg Documented by: [id number] Admin: 04/03/21 12:58 Dose: 400 mg Documented by: [id number] Admin: 04/03/21 10:10 Dose: 400 mg Documented by: [id number] Admin: 04/02/21 19:16 Dose: 400 mg Documented by: [id number] Admin: 04/02/21 15:05 Dose: 400 mg Documented by: [id number] Admin: 04/02/21 10:26 Dose: 400 mg Documented by: [id number] Admin: 04/01/21 20:26 Dose: 400 mg Documented by: [id number] Admin: 04/01/21 13:25 Dose: 400 mg Documented by: [id number] Admin: 04/01/21 08:42 Dose: 400 mg Documented by: [id number] Admin: 03/31/21 20:13 Dose: 400 mg Documented by: [id number] Admin: 03/31/21 13:21 Dose: 400 mg Documented by: [id number] Admin: 03/31/21 08:21 Dose: 400 mg Documented by: [id number] Admin: 03/30/21 20:14 Dose: 400 mg Documented by: [id number] Admin: 03/30/21 13:54 Dose: 400 mg Documented by: [id number] Admin: 03/30/21 08:46 Dose: 400 mg Documented by: [id number] Admin: 03/29/21 20:43 Dose: 400 mg Documented by: [id number] Admin: 03/29/21 13:09 Dose: 400 mg Documented by: [id number] Admin: 03/29/21 08:13 Dose: 400 mg Documented by: [id number] Admin: 03/28/21 20:36 Dose: 400 mg Documented by: [id number] Admin: 03/28/21 14:17 Dose: 400 mg Documented by: [id number] Admin: 03/28/21 09:10 Dose: 400 mg Documented by: [id number] Admin: 03/27/21 20:08 Dose: 400 mg Documented by: [id number] Admin: 03/27/21 13:37 Dose: 400 mg Documented by: [id number] Admin: 03/27/21 08:19 Dose: 400 mg Documented by: [id number] Admin: 03/26/21 20:23 Dose: 400 mg Documented by: [id number] Admin: 03/26/21 14:41 Dose: 400 mg Documented by: [id number] Admin: 03/26/21 08:17 Dose: 400 mg Documented by: [id number] Admin: 03/25/21 20:01 Dose: 400 mg Documented by: [id number] Admin: 03/25/21 15:05 Dose: 400 mg Documented by: [id number] Admin: 03/25/21 09:00 Dose: 400 mg Documented by: [id number] Admin: 03/24/21 20:00 Dose: 400 mg Documented by: [id number] Admin: 03/24/21 14:57 Dose: 400 mg Documented by: [id number] Admin: 03/24/21 11:19 Dose: 400 mg Documented by: [id number] Guaifenesin (Guaifenesin Sugar Free 200 Mg/10 Ml Udc) 600 mg PO Q6H [facility] Stop: 05/13/21 19:59 Last Admin: 04/16/21 07:53 Dose: 600 mg Documented by: [id number] Admin: 04/16/21 02:23 Dose: 600 mg Documented by: [id number] Admin: 04/15/21 20:15 Dose: 600 mg Documented by: [id number] Admin: 04/15/21 15:02 Dose: 600 mg Documented by: [id number] Admin: 04/15/21 08:10 Dose: 600 mg Documented by: [id number] Admin: 04/15/21 00:58 Dose: 600 mg Documented by: [id number] Admin: 04/14/21 20:11 Dose: 600 mg Documented by: [id number] Admin: 04/14/21 13:50 Dose: 600 mg Documented by: [id number] Admin: 04/14/21 07:42 Dose: 600 mg Documented by: [id number] Admin: 04/13/21 23:41 Dose: 600 mg Documented by: [id number] Admin: 04/13/21 20:32 Dose: Not Given Documented by: [id number] Heparin Sodium (Beef Lung) (Heparin 10 Unit/Ml 5 Ml Flush) 5 ml FLUSH PRN PRN PRN Reason: Flush Stop: 05/10/21 11:48 Last Admin: 04/10/21 12:13 Dose: 10 ml Documented by: [id number] Insulin Human Regular (Insulin Human Regular) 0 units SC Q6 RICARDO Stop: 05/09/21 11:59 Last Admin: 04/16/21 05:54 Dose: 1 units Documented by: [id number] Cosigned by: [id number] Admin: 04/15/21 23:39 Dose: 2 units Documented by: [id number] Cosigned by: [id number] Admin: 04/15/21 18:07 Dose: 2 units Documented by: [id number] Cosigned by: [id number] Admin: 04/15/21 12:32 Dose: 3 units Documented by: [id number] Cosigned by: [id number] Admin: 04/15/21 05:09 Dose: 2 units Documented by: [id number] Cosigned by: [id number] Admin: 04/15/21 00:54 Dose: 2 units Documented by: [id number] Cosigned by: [id number] Admin: 04/14/21 18:12 Dose: 3 units Documented by: [id number] Cosigned by: [id number] Admin: 04/14/21 11:43 Dose: 3 units Documented by: [id number] Cosigned by: [id number] Admin: 04/14/21 05:54 Dose: 3 units Documented by: [id number] Cosigned by: [id number] Admin: 04/14/21 00:14 Dose: 2 units Documented by: [id number] Cosigned by: [id number] Admin: 04/13/21 18:13 Dose: 3 units Documented by: [id number] Cosigned by: [id number] Admin: 04/13/21 12:34 Dose: 2 units Documented by: [id number] Cosigned by: [id number] Admin: 04/13/21 05:52 Dose: 3 units Documented by: [id number] Cosigned by: [id number] Admin: 04/13/21 00:08 Dose: 2 units Documented by: [id number] Cosigned by: [id number] Admin: 04/12/21 18:21 Dose: 3 units Documented by: [id number] Cosigned by: [id number] Admin: 04/12/21 12:35 Dose: 3 units Documented by: [id number] Cosigned by: [id number] Admin: 04/12/21 06:33 Dose: 2 units Documented by: [id number] Cosigned by: [id number] Admin: 04/12/21 00:53 Dose: 3 units Documented by: [id number] Cosigned by: [id number] Admin: 04/11/21 17:01 Dose: 3 units Documented by: [id number] Cosigned by: [id number] Admin: 04/11/21 11:50 Dose: 2 units Documented by: [id number] Cosigned by: [id number] Admin: 04/11/21 05:51 Dose: 3 units Documented by: [id number] Cosigned by: [id number] Admin: 04/10/21 23:03 Dose: 3 units Documented by: [id number] Cosigned by: [id number] Admin: 04/10/21 17:25 Dose: 3 units Documented by: [id number] Cosigned by: [id number] Admin: 04/10/21 11:29 Dose: 2 units Documented by: [id number] Cosigned by: [id number] Admin: 04/10/21 06:36 Dose: 1 units Documented by: [id number] Cosigned by: [id number] Admin: 04/10/21 00:53 Dose: 1 units Documented by: [id number] Cosigned by: [id number] Admin: 04/09/21 18:09 Dose: Not Given Documented by: [id number] Admin: 04/09/21 13:21 Dose: Not Given Documented by: [id number] Lansoprazole (Lansoprazole 30 Mg Soltab) 30 mg NG DAILY RICARDO Stop: 05/10/21 08:59 Last Admin: 04/15/21 08:12 Dose: 30 mg Documented by: [id number] Admin: 04/14/21 07:44 Dose: 30 mg Documented by: [id number] Admin: 04/13/21 08:31 Dose: 30 mg Documented by: [id number] Admin: 04/12/21 10:03 Dose: 30 mg Documented by: [id number] Admin: 04/11/21 07:52 Dose: 30 mg Documented by: [id number] Admin: 04/10/21 07:52 Dose: 30 mg Documented by: [id number] Metoprolol Tartrate (Metoprolol Tartrate 25 Mg Tab) 25 mg PO TID RICARDO Stop: 05/15/21 13:59 Last Admin: 04/15/21 20:16 Dose: 25 mg Documented by: [id number] Admin: 04/15/21 15:00 Dose: 25 mg Documented by: [id number] Nutritional Formula (Peptamen Intense Vhp 1.0 Nelson 1,000 Ml Bag) 1,000 ml OG UD [facility]; Protocol Stop: 05/05/21 11:14 Last Admin: 04/15/21 16:54 Dose: 1,000 ml Documented by: [id number] Admin: 04/15/21 00:55 Dose: 1,000 ml Documented by: [id number] Admin: 04/14/21 07:40 Dose: 1,000 ml Documented by: [id number] Admin: 04/13/21 14:39 Dose: 1,000 ml Documented by: [id number] Admin: 04/12/21 21:38 Dose: 1,000 ml Documented by: [id number] Admin: 04/12/21 02:44 Dose: 1,000 ml Documented by: [id number] Admin: 04/11/21 10:33 Dose: 1,000 ml Documented by: [id number] Admin: 04/10/21 16:51 Dose: 1,000 ml Documented by: [id number] Admin: 04/09/21 19:25 Dose: 1,000 ml Documented by: [id number] Admin: 04/08/21 12:17 Dose: 1,000 ml Documented by: [id number] Admin: 04/06/21 17:07 Dose: 1,000 ml Documented by: [id number] Admin: 04/05/21 11:55 Dose: 1,000 ml Documented by: [id number] Oxycodone HCl (Oxycodone Hcl Soln 5 Mg/5 Ml Udc) 5 mg PO BID RICARDO Stop: 04/23/21 08:59 Last Admin: 04/15/21 20:19 Dose: 5 mg Documented by: [id number] Admin: 04/15/21 08:15 Dose: 5 mg Documented by: [id number] Admin: 04/14/21 20:16 Dose: 5 mg Documented by: [id number] Admin: 04/14/21 07:46 Dose: 5 mg Documented by: [id number] Admin: 04/13/21 20:31 Dose: 5 mg Documented by: [id number] Admin: 04/13/21 08:33 Dose: 5 mg Documented by: [id number] Admin: 04/12/21 20:20 Dose: 5 mg Documented by: [id number] Admin: 04/12/21 10:05 Dose: 5 mg Documented by: [id number] Admin: 04/11/21 20:54 Dose: 5 mg Documented by: [id number] Admin: 04/11/21 07:52 Dose: 5 mg Documented by: [id number] Admin: 04/10/21 20:05 Dose: 5 mg Documented by: [id number] Admin: 04/10/21 07:51 Dose: 5 mg Documented by: [id number] Admin: 04/09/21 20:09 Dose: 5 mg Documented by: [id number] Admin: 04/09/21 08:10 Dose: 5 mg Documented by: [id number] Sennosides (Sennosides 8.8 Mg/5 Ml Udc) 17.6 mg PO QAM RICARDO Stop: 04/22/21 08:59 Last Admin: 04/15/21 07:52 Dose: Not Given Documented by: [id number] Admin: 04/14/21 07:39 Dose: Not Given Documented by: [id number] Admin: 04/13/21 08:32 Dose: Not Given Documented by: [id number] Admin: 04/12/21 10:11 Dose: Not Given Documented by: [id number] Admin: 04/11/21 07:51 Dose: 17.6 mg Documented by: [id number] Admin: 04/10/21 07:51 Dose: 17.6 mg Documented by: [id number] Admin: 04/09/21 08:11 Dose: 17.6 mg Documented by: [id number] Admin: 04/08/21 08:19 Dose: 17.6 mg Documented by: [id number] Admin: 04/07/21 07:30 Dose: Not Given Documented by: [id number] Admin: 04/06/21 07:56 Dose: 17.6 mg Documented by: [id number] Admin: 04/05/21 08:33 Dose: 17.6 mg Documented by: [id number] Admin: 04/04/21 07:42 Dose: 17.6 mg Documented by: [id number] Admin: 04/03/21 10:09 Dose: 17.6 mg Documented by: [id number] Admin: 04/02/21 10:25 Dose: 17.6 mg Documented by: [id number] Admin: 04/01/21 08:42 Dose: 17.6 mg Documented by: [id number] Admin: 03/31/21 07:57 Dose: 17.6 mg Documented by: [id number] Admin: 03/30/21 08:48 Dose: 17.6 mg Documented by: [id number] Admin: 03/29/21 08:01 Dose: 17.6 mg Documented by: [id number] Admin: 03/28/21 09:08 Dose: 17.6 mg Documented by: [id number] Admin: 03/27/21 08:21 Dose: 17.6 mg Documented by: [id number] Admin: 03/26/21 08:14 Dose: 17.6 mg Documented by: [id number] Admin: 03/25/21 09:00 Dose: 17.6 mg Documented by: [id number] Admin: 03/24/21 08:21 Dose: 17.6 mg Documented by: [id number] Admin: 03/23/21 08:54 Dose: 17.6 mg Documented by: [id number] Sterile Water (Tube Feeding Water Flush) 30 ml OG Q4H RICARDO Stop: 04/20/21 15:59 Last Admin: 04/16/21 07:53 Dose: 30 ml Documented by: [id number] Admin: 04/16/21 04:24 Dose: 30 ml Documented by: [id number] Admin: 04/15/21 23:40 Dose: 30 ml Documented by: [id number] Admin: 04/15/21 20:15 Dose: 30 ml Documented by: [id number] Admin: 04/15/21 16:10 Dose: 30 ml Documented by: [id number] Admin: 04/15/21 12:26 Dose: 30 ml Documented by: [id number] Admin: 04/15/21 08:10 Dose: 30 ml Documented by: [id number] Admin: 04/15/21 05:09 Dose: 30 ml Documented by: [id number] Admin: 04/15/21 00:55 Dose: 30 ml Documented by: [id number] Admin: 04/14/21 20:12 Dose: 30 ml Documented by: [id number] Admin: 04/14/21 17:27 Dose: 30 ml Documented by: [id number] Admin: 04/14/21 11:42 Dose: 30 ml Documented by: [id number] Admin: 04/14/21 07:40 Dose: 30 ml Documented by: [id number] Admin: 04/14/21 03:05 Dose: 30 ml Documented by: [id number] Admin: 04/14/21 00:05 Dose: 30 ml Documented by: [id number] Admin: 04/13/21 20:32 Dose: 30 ml Documented by: [id number] Admin: 04/13/21 17:39 Dose: 30 ml Documented by: [id number] Admin: 04/13/21 12:35 Dose: 30 ml Documented by: [id number] Admin: 04/13/21 08:29 Dose: 30 ml Documented by: [id number] Admin: 04/13/21 01:51 Dose: 30 ml Documented by: [id number] Admin: 04/13/21 00:10 Dose: 30 ml Documented by: [id number] Admin: 04/12/21 20:12 Dose: 30 ml Documented by: [id number] Admin: 04/12/21 16:00 Dose: 30 ml Documented by: [id number] Admin: 04/12/21 12:56 Dose: 30 ml Documented by: [id number] Admin: 04/12/21 08:00 Dose: 30 ml Documented by: [id number] Admin: 04/12/21 04:44 Dose: 30 ml Documented by: [id number] Admin: 04/12/21 00:53 Dose: 30 ml Documented by: [id number] Admin: 04/11/21 20:51 Dose: 30 ml Documented by: [id number] Admin: 04/11/21 17:01 Dose: 30 ml Documented by: [id number] Admin: 04/11/21 11:50 Dose: 30 ml Documented by: [id number] Admin: 04/11/21 07:52 Dose: 30 ml Documented by: [id number] Admin: 04/11/21 03:53 Dose: 30 ml Documented by: [id number] Admin: 04/10/21 23:04 Dose: 30 ml Documented by: [id number] Admin: 04/10/21 20:01 Dose: 30 ml Documented by: [id number] Admin: 04/10/21 16:51 Dose: 30 ml Documented by: [id number] Admin: 04/10/21 11:29 Dose: 30 ml Documented by: [id number] Admin: 04/10/21 07:53 Dose: 30 ml Documented by: [id number] Admin: 04/10/21 03:21 Dose: 30 ml Documented by: [id number] Admin: 04/10/21 00:54 Dose: 30 ml Documented by: [id number] Admin: 04/09/21 19:25 Dose: 30 ml Documented by: [id number] Admin: 04/09/21 16:10 Dose: 30 ml Documented by: [id number] Admin: 04/09/21 13:23 Dose: 30 ml Documented by: [id number] Admin: 04/09/21 08:05 Dose: 30 ml Documented by: [id number] Admin: 04/09/21 05:05 Dose: 30 ml Documented by: [id number] Admin: 04/09/21 00:11 Dose: 30 ml Documented by: [id number] Admin: 04/08/21 20:11 Dose: 30 ml Documented by: [id number] Admin: 04/08/21 15:36 Dose: 30 ml Documented by: [id number] Admin: 04/08/21 11:22 Dose: 30 ml Documented by: [id number] Admin: 04/08/21 08:20 Dose: 30 ml Documented by: [id number] Admin: 04/08/21 03:54 Dose: 30 ml Documented by: [id number] Admin: 04/08/21 00:24 Dose: 30 ml Documented by: [id number] Admin: 04/07/21 20:59 Dose: Not Given Documented by: [id number] Admin: 04/07/21 15:27 Dose: Not Given Documented by: [id number] Admin: 04/07/21 12:09 Dose: Not Given Documented by: [id number] Admin: 04/07/21 07:29 Dose: Not Given Documented by: [id number] Admin: 04/07/21 00:57 Dose: Not Given Documented by: [id number] Admin: 04/07/21 00:34 Dose: 30 ml Documented by: [id number] Admin: 04/06/21 20:13 Dose: 30 ml Documented by: [id number] Admin: 04/06/21 16:11 Dose: 30 ml Documented by: [id number] Admin: 04/06/21 10:51 Dose: 30 ml Documented by: [id number] Admin: 04/06/21 07:56 Dose: 30 ml Documented by: [id number] Admin: 04/06/21 03:23 Dose: 30 ml Documented by: [id number] Admin: 04/06/21 01:04 Dose: 30 ml Documented by: [id number] Admin: 04/05/21 20:47 Dose: 30 ml Documented by: [id number] Admin: 04/05/21 16:21 Dose: 30 ml Documented by: [id number] Admin: 04/05/21 11:55 Dose: 30 ml Documented by: [id number] Admin: 04/05/21 07:36 Dose: 30 ml Documented by: [id number] Admin: 04/05/21 03:09 Dose: 30 ml Documented by: [id number] Admin: 04/04/21 23:18 Dose: 30 ml Documented by: [id number] Admin: 04/04/21 20:21 Dose: 30 ml Documented by: [id number] Admin: 04/04/21 17:10 Dose: 30 ml Documented by: [id number] Admin: 04/04/21 11:44 Dose: 30 ml Documented by: [id number] Admin: 04/04/21 07:39 Dose: 30 ml Documented by: [id number] Admin: 04/04/21 03:17 Dose: 30 ml Documented by: [id number] Admin: 04/03/21 23:47 Dose: 30 ml Documented by: [id number] Admin: 04/03/21 20:19 Dose: 30 ml Documented by: [id number] Admin: 04/03/21 16:25 Dose: 30 ml Documented by: [id number] Admin: 04/03/21 12:23 Dose: 30 ml Documented by: [id number] Admin: 04/03/21 08:06 Dose: 30 ml Documented by: [id number] Admin: 04/03/21 03:37 Dose: 30 ml Documented by: [id number] Admin: 04/02/21 23:13 Dose: 30 ml Documented by: [id number] Admin: 04/02/21 19:15 Dose: 30 ml Documented by: [id number] Admin: 04/02/21 15:27 Dose: 30 ml Documented by: [id number] Admin: 04/02/21 12:08 Dose: 30 ml Documented by: [id number] Admin: 04/02/21 08:02 Dose: Not Given Documented by: [id number] Admin: 04/02/21 03:30 Dose: 30 ml Documented by: [id number] Admin: 04/02/21 00:29 Dose: 30 ml Documented by: [id number] Admin: 04/01/21 20:21 Dose: 30 ml Documented by: [id number] Admin: 04/01/21 15:27 Dose: 30 ml Documented by: [id number] Admin: 04/01/21 12:09 Dose: 30 ml Documented by: [id number] Admin: 04/01/21 10:36 Dose: 30 ml Documented by: [id number] Admin: 04/01/21 03:45 Dose: 30 ml Documented by: [id number] Admin: 03/31/21 23:52 Dose: 30 ml Documented by: [id number] Admin: 03/31/21 20:16 Dose: 30 ml Documented by: [id number] Admin: 03/31/21 15:30 Dose: 30 ml Documented by: [id number] Admin: 03/31/21 11:17 Dose: 30 ml Documented by: [id number] Admin: 03/31/21 07:55 Dose: 30 ml Documented by: [id number] Admin: 03/31/21 05:34 Dose: 30 ml Documented by: [id number] Admin: 03/31/21 00:21 Dose: 30 ml Documented by: [id number] Admin: 03/30/21 20:33 Dose: 30 ml Documented by: [id number] Admin: 03/30/21 16:39 Dose: 30 ml Documented by: [id number] Admin: 03/30/21 11:45 Dose: 30 ml Documented by: [id number] Admin: 03/30/21 08:47 Dose: 30 ml Documented by: [id number] Admin: 03/30/21 05:56 Dose: 30 ml Documented by: [id number] Admin: 03/30/21 00:49 Dose: 30 ml Documented by: [id number] Admin: 03/29/21 20:46 Dose: 30 ml Documented by: [id number] Admin: 03/29/21 17:15 Dose: 30 ml Documented by: [id number] Admin: 03/29/21 12:56 Dose: 30 ml Documented by: [id number] Admin: 03/29/21 07:59 Dose: 30 ml Documented by: [id number] Admin: 03/29/21 05:11 Dose: 30 ml Documented by: [id number] Admin: 03/29/21 05:10 Dose: 30 ml Documented by: [id number] Admin: 03/29/21 00:27 Dose: 30 ml Documented by: [id number] Admin: 03/28/21 16:00 Dose: 30 ml Documented by: [id number] Admin: 03/28/21 11:46 Dose: 30 ml Documented by: [id number] Admin: 03/28/21 09:00 Dose: 30 ml Documented by: [id number] Admin: 03/28/21 04:28 Dose: 30 ml Documented by: [id number] Admin: 03/28/21 01:22 Dose: 30 ml Documented by: [id number] Admin: 03/27/21 20:11 Dose: 30 ml Documented by: [id number] Admin: 03/27/21 16:23 Dose: 30 ml Documented by: [id number] Admin: 03/27/21 12:28 Dose: 30 ml Documented by: [id number] Admin: 03/27/21 08:17 Dose: 30 ml Documented by: [id number] Admin: 03/27/21 04:58 Dose: 30 ml Documented by: [id number] Admin: 03/27/21 00:13 Dose: 30 ml Documented by: [id number] Admin: 03/26/21 20:25 Dose: 30 ml Documented by: [id number] Admin: 03/26/21 14:44 Dose: 30 ml Documented by: [id number] Admin: 03/26/21 13:42 Dose: 30 ml Documented by: [id number] Admin: 03/26/21 07:31 Dose: 30 ml Documented by: [id number] Admin: 03/26/21 04:11 Dose: 30 ml Documented by: [id number] Admin: 03/25/21 22:18 Dose: 30 ml Documented by: [id number] Admin: 03/25/21 22:18 Dose: 30 ml Documented by: [id number] Admin: 03/25/21 17:55 Dose: 30 ml Documented by: [id number] Admin: 03/25/21 12:45 Dose: 30 ml Documented by: [id number] Admin: 03/25/21 09:01 Dose: 30 ml Documented by: [id number] Admin: 03/25/21 03:45 Dose: 30 ml Documented by: [id number] Admin: 03/25/21 00:00 Dose: 30 ml Documented by: [id number] Admin: 03/24/21 19:46 Dose: 30 ml Documented by: [id number] Admin: 03/24/21 16:57 Dose: 30 ml Documented by: [id number] Admin: 03/24/21 16:09 Dose: 30 ml Documented by: [id number] Admin: 03/24/21 07:58 Dose: 30 ml Documented by: [id number] Admin: 03/24/21 04:41 Dose: 30 ml Documented by: [id number] Admin: 03/24/21 00:49 Dose: 30 ml Documented by: [id number] Admin: 03/23/21 20:01 Dose: 30 ml Documented by: [id number] Admin: 03/23/21 16:16 Dose: 30 ml Documented by: [id number] Admin: 03/23/21 11:25 Dose: Not Given Documented by: [id number] Admin: 03/23/21 08:49 Dose: 30 ml Documented by: [id number] Admin: 03/23/21 04:24 Dose: 30 ml Documented by: [id number] Admin: 03/23/21 00:15 Dose: 30 ml Documented by: [id number] Admin: 03/22/21 21:56 Dose: 30 ml Documented by: [id number] Admin: 03/22/21 16:14 Dose: 30 ml Documented by: [id number] Admin: 03/22/21 11:18 Dose: 30 ml Documented by: [id number] Admin: 03/22/21 08:01 Dose: 30 ml Documented by: [id number] Admin: 03/22/21 04:03 Dose: 30 ml Documented by: [id number] Admin: 03/21/21 23:50 Dose: 30 ml Documented by: [id number] Admin: 03/21/21 19:45 Dose: 30 ml Documented by: [id number] Admin: 03/21/21 18:09 Dose: 30 ml Documented by: [id number] Coding Level of Care Code 10566 Inpt Consult Level 4 Diagnoses Anxiety F41.9 Time Spent (min) 80 Comment coordination with ICU, hx, extensive chart review, communication difficulties,complex
[2021-04-16] MEDS: MULTI VIT W/MINERALS LIQUID 15 ML UDP PO SCH (09:32)
[2021-04-16] MEDS: ASCORBIC ACID 500 MG TAB PO SCH (09:32)
[2021-04-16] MEDS: FERROUS SULFATE 325 MG/7.4 ML UDP PO SCH (09:32)
[2021-04-16] MEDS: buPROPion HCl 100 MG TABLET PO SCH ×3 (09:33→20:34)
[2021-04-16] MEDS: METOPROLOL TARTRATE 25 MG TAB PO SCH ×3 (09:33→20:34)
[2021-04-16] MEDS: LANSOPRAZOLE 30 MG SOLTAB NG SCH (09:34)
[2021-04-16] MEDS: AMIODARONE 200 MG TAB PO SCH ×2 (09:34→18:08)
[2021-04-16] MEDS: SENNOSIDES 8.8 MG/5 ML UDC PO SCH (09:36)
[2021-04-16] MEDS: ENOXAPARIN INJ 120 MG/0.8 ML SYR SQ SCH ×2 (09:37→20:35)
[2021-04-16] MEDS: DOCUSATE SODIUM SYRUP 100 MG/10 ML UDC PO SCH ×2 (09:37→20:34)
[2021-04-16] MEDS: FUROSEMIDE 40 MG/4 ML VIAL IV SCH ×2 (09:38→20:35)
[2021-04-16] MEDS: oxyCODONE HCL SOLN 5 MG/5 ML UDC PO SCH ×2 (09:48→20:33)
[2021-04-16] MEDS ORDERED: OXANDROLONE 10 MG TABLET PO SCH (10:00)
[2021-04-16] MEDS ORDERED: WHISKEY 1 DOSE PO SCH (10:00)
--- NOTE | 2021-04-16 10:47 | Hospitalist Progress Note ---
Date of Service April 16, 2021 Assessment & Plan (1) Acute hypoxemic respiratory failure: (2) ARDS (adult respiratory distress syndrome): (3) Pneumonia due to COVID-19 virus: Plan: 2/2 covid pneumonia, remains on vent 2/2 ARDS. s/p trach and PEG. CTA-no evidence of PE. Remdesivir discontinued by pulmonary service Completed dexamethasone 10 days course Baricitinib given for 6 days but discontinued due to acute DVTs (03/06/21) Had completed abx with cefepime and doxycycline for 7 days in Dec Received an additional 7 day course of Zosyn for serratia in the sputum-early [place] Leukocytosis now normal, remains afebrile. Repeat sputum culture sent growing serratia Zosyn restarted (04/11), Stopped (04/13). Repeat serratia in culture noted ID recs monitoring off abx Trach exchanged (4) Acute DVT (deep venous thrombosis): Plan: Deep venous thrombosis posterior tibial and peroneal veins Likely provoked by COVID-19 infection & baricitinib use Patient reported family history of blood clots Cont Lovenox (5) Atrial fibrillation: Plan: Sinus rhythm. Cont with amiodarone and metoprolol. Anticoagulation with Lovenox. (6) Anxiety: Plan: has h/o PTSD per records, exhibits understandable frustration with current limitations. Less anxious today. Plan: Lovenox Full Code Dispo-LTAC ROS-No Headache, No Visual Changes, No Nausea, No Vomiting, No Fever, No Chills, No Neck Pain or Stiffness, No Chest Pain, No Palpitations, No SOB, No MOON, No Cough, No Sputum, No Wheezing, No Abdominal Pain, No Diarrhea, No Hematemesis, No Hemoptysis, No Unexpected Weight Loss, No Flank pain, No Melena, No Hematochezia, No Frequency, No Urgency, No Burning, No Hematuria, No Rashes, No Diaphoresis. Appetite is Poor, Physical Exam Gen-AAO x 3, NAD, Afebrile, +Trach Head-NCAT, EOMI, PERRLA, Anicteric Sclera, No Posterior Pharyngeal Erythema Neck-Supple, No JVD, No Thyromegaly, No Masses, No LAD, No Bruits Lungs-Clear to Auscultation Bilaterally, No Rales, No Rhonchi, No Wheezing, No Crepitus Chest-No S4, +S1, +S2, No S3, No Murmurs, No Rubs, No Gallops, No Ectopy Abdomen-Soft, Bowel Sounds Present, Non Tender, Non Distended, No Hepatomegaly, No Splenomegaly, No Palpable Masses, No Rebound, No Rigidity, No Guarding, +Peg Musculoskeletal-Full Range of Motion Bilaterally, No CVAT Extremities-No Cyanosis, No Clubbing, + B/L LE Edema 2-3+ Nuero-Cranial Nerves II-XII grossly intact, Motor WNL, DTRs WNL, Strength WNL, Non Focal Psych-Normal Mood Admission and Anticipated Discharge Date Admission Date: March 01, 2021 Subjective Yesterday patient was expressing wishes to discontinue care self discontinuing oxygen. Treatment team also discussed with , who felt he was not in normal mental state i.e. depressed, Hypoxic or delirious. She reported patient was unaware of reason for hospitalization had not had to be reoriented to the last 7 weeks of hospital course. Patient more calm today. Results & Data Results & Data ([facility]) Vital Signs (Past 12 Hours) Vital Signs Temp Pulse Resp BP Pulse Ox 04/16/21 08:00 73 04/16/21 06:00 79 19 125/87 99 04/16/21 05:00 68 19 128/75 99 04/16/21 04:00 37 C 66 19 125/74 100 04/16/21 03:00 66 20 132/66 100 04/16/21 02:00 58 L 22 129/68 93 04/16/21 01:00 67 21 127/70 98 04/16/21 00:00 36.8 C 61 20 119/66 94 04/15/21 23:00 60 22 110/67 98 Laboratory Results reviewed
[2021-04-16] MEDS: PEPTAMEN INTENSE VHP 1.0 CAL 1,000 ML BAG OG SCH (11:20)
[2021-04-16] MEDS: GABAPENTIN 250 MG/5 ML 470 ML BTL PO SCH ×3 (11:34→21:06)
--- NOTE | 2021-04-16 12:08 | Cardiology Progress Note ---
Date of Service April 16, 2021 Assessment & Plan (1) Atrial flutter: (2) Atrial fibrillation: (3) Hypoxia: (4) Pneumonia due to COVID-19 virus: Plan: Continue current medications including metoprolol and amiodarone. Reduce dose of amiodarone to 200 mg daily if no recurrent dysrhythmia over the next 48 hours. Anticoagulated with Lovenox due to right lower extremity DVT initially diagnosed 03/05/2021 and confirmed per venous duplex 04/01/2021. Consider transition to DOAC via PEG tube. Eliquis is likely the best option of the DOACs however, bioavailability may be reduced when administerd via PEG tube. If transitioned to Eliquis, 5 mg two times per day, crush tablet suspended in D5W, is preferred to mixing or flushing with nutrition supplement. Admission and Anticipated Discharge Date Admission Date: March 01, 2021 Subjective Patient seen and examined at the bedside. No recurrent atrial fibrillation/flutter over the past 24 hours. Tolerating amiodarone plus metoprolol tartrate. Metoprolol titrated to 25 mg 3 times daily yesterday. Patient more alert today. Unable to speak due to presence of tracheostomy. Attempting to communicate however frustrated. Review of Systems Review of Systems: Limited review of systems due to presence of tracheostomy. Positives noted per HPI. Physical Exam Constitutional: + ill appearing and + obese Respiratory: normal respiratory effort; no retractions Auscultation: no crackles, no rales, no rhonchi and no wheezes Cardiovascular: Rate/Rhythm: regular rate and regular rhythm; not tachycardic Heart Sounds: normal S1 and normal S2; no murmur Vessels: no JVD Gastrointestinal (Abdomen): Inspection/Auscultation: normal bowel sounds; abdomen not distended Percussion/Palpation: abdomen soft; abdomen nontender, no guarding and abdomen not rigid Results & Data ([facility]) Vital Signs (Past 12 Hours) Vital Signs Temp Pulse Resp BP Pulse Ox 04/16/21 08:00 73 04/16/21 06:00 79 19 125/87 99 04/16/21 05:00 68 19 128/75 99 04/16/21 04:00 37 C 66 19 125/74 100 04/16/21 03:00 66 20 132/66 100 01/21/22 02:00 58 L 22 129/68 93 04/16/21 01:00 67 21 127/70 98
[2021-04-16] MEDS: CYANOCOBALAMIN 1000 MCG/ML VIAL IM SCH (13:00)
--- NOTE | 2021-04-16 13:38 | Pulmonology Progress Note ---
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 O2 requirements continue to come down. He has responded well to diuresis, can likely transition to p.o. diuretic therapy. X-ray appears improved, but with continued alveolar and interstitial opacities. We will recommend a repeat chest x-ray in 4 to 6 weeks to ensure continued improvement. Continue vest therapy on an as-needed basis to help promote mucociliary clearance. No signs of active bacterial pneumonia at this time. Tracheostomy downsized to a size 6 fenestrated trach by the critical care team. Appreciate their assistance. Recommend Passy-Tea trials. Patient has not required the ventilator for several days. Hopefully, he may be decannulated in the next week or 2 if he has continued improvement. Pulmonary will sign off at this time. Please call with questions. Agree with discharge to [facility] facility or LTAC. Thank you for the consult. Admission and Anticipated Discharge Date Admission Date: March 01, 2021 Subjective Patient had increasing delirium yesterday and this morning. He was placed back on the ICU service and a psychiatric consult was placed. He is doing much better at this late morning. ICU team changed out his size 8 tracheostomy to a size 6 fenestrated tracheostomy. He has been doing quite well from a pulmonary perspective. No new complaints of pain or discomfort at this present time. Review of Systems Review of Systems: All systems reviewed & are unremarkable except as noted in HPI & below Physical Exam Physical Exam: Constitutional: Patient appears to be of their stated age. Patient is in no apparent distress. Patient is well-developed. Eyes: Pupils are equal round and reactive to light. Conjunctivae are normal. Anicteric sclera. Ears nose, mouth and throat: Tracheostomy in place. Neck: Trachea is midline. Visual inspection is normal. Respiratory: Coarse breath sounds bilaterally. Tachypneic. Cardiovascular: Regular rate and rhythm. No murmurs. 2+ pitting edema in the lower extremities bilaterally. Gastrointestinal: Normal bowel sounds, soft, nontender and nondistended. No hepatosplenomegaly noted. Musculoskeletal: No cyanosis. Patient is able to move all extremities. Skin: No rashes, warm dry and intact. Neurologic: No obvious focal neurological deficits seen. Psychiatric: Good eye contact. Mood is good. Results & Data Results & Data ([facility]) Vital Signs (Past 12 Hours) Vital Signs Temp Pulse Resp BP Pulse Ox 04/16/21 08:00 73 04/16/21 06:00 79 19 125/87 99 04/16/21 05:00 68 19 128/75 99 04/16/21 04:00 37 C 66 19 125/74 100 04/16/21 03:00 66 20 132/66 100 04/16/21 02:00 58 L 22 129/68 93 Chest x-ray with improved aeration, but persistent bilateral infiltrates. PG Care Time/CCT Total # of Minutes Spent Total Time Spent with Patient: Total time spent is greater than 50% in coordination of care (as documented) at patient's floor/unit and/or counseling patient: Coding Level of Care Code 29248 Subseq Hosp Care Lvl 2 Diagnoses ARDS (adult respiratory distress syndrome) J80 Acute hypoxemic respiratory failure J96.01 Pneumonia due to COVID-19 virus U07.1; J12.82 Pulmonary hypertension I27.20 Acute DVT (deep venous thrombosis) I82.409 Anxiety F41.9
[2021-04-17] MEDS: INSULIN HUMAN REGULAR SC SCH ×5 (00:05→23:28)
[2021-04-17] MEDS: TUBE FEEDING WATER FLUSH OG SCH ×7 (00:05→23:30)
[2021-04-17] MEDS: PEPTAMEN INTENSE VHP 1.0 CAL 1,000 ML BAG OG SCH (03:49)
[2021-04-17 06:09] LABS: Hematocrit (blood only) 26.3 % (42-52); Hemoglobin 8.1 g/dL (14.0-18.0); Mean Corpuscular Hemoglobin 28.9 pg (25-34); Mean Corpuscular Hgb Conc 30.8 g/dL (32-36); Mean Corpuscular Volume 93.9 fL (80-100); Mean Platelet Volume 9.6 fL (7.4-10.4); Platelet Count 350 K/uL (130-400); RDW Coefficient of Variation 16.6 % (11.5-14.5); RDW Standard Deviation 56.5 fL (36.4-46.3)
[2021-04-17 06:24] LABS: INR 1.1 (0.9-1.1); Prothrombin Time 11.1 Seconds (9.0-12.0)
[2021-04-17 06:38] LABS: BUN Creatinine Ratio 65.1 (10-20); Calcium 8.3 mg/dl (8.5-10.1); Est GFR (African American) 147.3 ml/min; Est GFR (Non-African American) 127.1 ml/min; Magnesium 1.9 mg/dl (1.7-2.4); Phosphorus 2.7 mg/dl (2.5-4.9); Potassium 3.3 mmol/L (3.5-5.1)
[2021-04-17] MEDS: SENNOSIDES 8.8 MG/5 ML UDC PO SCH (08:36)
[2021-04-17] MEDS: DOCUSATE SODIUM SYRUP 100 MG/10 ML UDC PO SCH ×2 (08:36→20:08)
[2021-04-17] MEDS ORDERED: MoRPHine SULFATE 2 MG/ML CARP IV PRN (08:40)
[2021-04-17] MEDS ORDERED: MoRPHine SULFATE 2 MG/ML CARP ONE (08:42)
[2021-04-17] MEDS: oxyCODONE HCL SOLN 5 MG/5 ML UDC PO SCH ×2 (08:45→20:09)
[2021-04-17] MEDS: MULTI VIT W/MINERALS LIQUID 15 ML UDP PO SCH (08:45)
[2021-04-17] MEDS: ASCORBIC ACID 500 MG TAB PO SCH (08:45)
[2021-04-17] MEDS: FERROUS SULFATE 325 MG/7.4 ML UDP PO SCH (08:45)
[2021-04-17] MEDS: buPROPion HCl 100 MG TABLET PO SCH ×3 (08:46→20:11)
[2021-04-17] MEDS: ENOXAPARIN INJ 120 MG/0.8 ML SYR SQ SCH ×2 (08:46→20:10)
[2021-04-17] MEDS: GABAPENTIN 250 MG/5 ML 470 ML BTL PO SCH ×3 (08:46→20:08)
[2021-04-17] MEDS: AMIODARONE 200 MG TAB PO SCH ×2 (08:46→17:22)
[2021-04-17] MEDS: METOPROLOL TARTRATE 25 MG TAB PO SCH ×3 (08:46→20:11)
[2021-04-17] MEDS: FUROSEMIDE 40 MG/4 ML VIAL IV SCH ×2 (08:46→20:10)
--- NOTE | 2021-04-17 10:18 | Hospitalist Progress Note ---
Date of Service April 17, 2021 Assessment & Plan (1) Acute hypoxemic respiratory failure: (2) ARDS (adult respiratory distress syndrome): (3) Pneumonia due to COVID-19 virus: Plan: 2/2 covid pneumonia, remains on vent 2/2 ARDS. s/p trach and PEG. CTA-no evidence of PE. Remdesivir discontinued by pulmonary service Completed dexamethasone 10 days course Baricitinib given for 6 days but discontinued due to acute DVTs (03/06/21) Had completed abx with cefepime and doxycycline for 7 days in Dec Received an additional 7 day course of Zosyn for serratia in the sputum-early Hong Leukocytosis now normal, remains afebrile. Repeat sputum culture sent growing serratia Zosyn restarted (04/11), Stopped (04/13). Repeat serratia in culture noted ID recs monitoring off abx Trach exchanged (4) Acute DVT (deep venous thrombosis): Plan: Deep venous thrombosis posterior tibial and peroneal veins Likely provoked by COVID-19 infection & baricitinib use Patient reported family history of blood clots Cont full dose Lovenox (5) Atrial fibrillation: Plan: Sinus rhythm. Cont with amiodarone and metoprolol. Anticoagulation with L ovenox. (6) Anxiety: Plan: has h/o PTSD per records, exhibits understandable frustration with current limitations. Less anxious today. Plan: Lovenox Full Code Dispo-LTAC ROS-No Headache, No Visual Changes, No Nausea, No Vomiting, No Fever, No Chills, No Neck Pain or Stiffness, No Chest Pain, No Palpitations, positive SOB, No MOON, positive cough, positive sputum, No Wheezing, No Abdominal Pain, No Diarrhea, No Hematemesis, No Hemoptysis, No Unexpected Weight Loss, No Flank pain, No Melena, No Hematochezia, No Frequency, No Urgency, No Burning, No Hematuria, No Rashes, No Diaphoresis. Appetite is Poor Physical Exam Gen-AA severe respiratory distressresolved after suctioning yellow mucus from trach, afebrile, +Trach, Head-NCAT, EOMI, PERRLA, Anicteric Sclera, No Posterior Pharyngeal Erythema Neck-Supple, No JVD, No Thyromegaly, No Masses, No LAD, No Bruits Lungs-Clear to Auscultation Bilaterally, No Rales, No Rhonchi, No Wheezing, No Crepitus Chest-No S4, +S1, +S2, No S3, No Murmurs, No Rubs, No Gallops, No Ectopy Abdomen-Soft, Bowel Sounds Present, Non Tender, Non Distended, No Hepatomegaly, No Splenomegaly, No Palpable Masses, No Rebound, No Rigidity, No Guarding, +Peg Musculoskeletal-Full Range of Motion Bilaterally, No CVAT Extremities-No Cyanosis, No Clubbing, + B/L LE Edema 2-3+ Nuero-Cranial Nerves II-XII grossly intact, Motor WNL, DTRs WNL, Strength WNL, Non Focal Psych-Normal Mood Admission and Anticipated Discharge Date Admission Date: March 01, 2021 Subjective Patient severe respiratory distress and pulse ox was dropping this morning. He is doing much better now after suctioning. ICU team changed out his size 8 t racheostomy to a size 6 fenestrated tracheostomy on April 16. Results & Data Results & Data ([facility]) Vital Signs (Past 12 Hours) Vital Signs Temp Pulse Resp BP Pulse Ox 04/17/21 07:26 37.0 C 82 24 156/84 H 96 04/17/21 04:15 36.8 C 72 22 121/61 96 04/17/21 00:00 36.5 C 60 20 120/56 L 93 Laboratory Results Reviewed
[2021-04-17] MEDS: POTASSIUM CHLORIDE 20 MEQ/15 ML UDC PO SCH ×2 (12:02→20:13)
[2021-04-18] MEDS: TUBE FEEDING WATER FLUSH OG SCH ×5 (03:34→19:55)
[2021-04-18 05:52] LABS: INR 1.1 (0.9-1.1); Prothrombin Time 11.1 Seconds (9.0-12.0)
[2021-04-18] MEDS: INSULIN HUMAN REGULAR SC SCH ×3 (06:21→18:20)
[2021-04-18] MEDS: GABAPENTIN 250 MG/5 ML 470 ML BTL PO SCH ×3 (08:38→19:55)
[2021-04-18] MEDS: ASCORBIC ACID 500 MG TAB PO SCH (08:38)
[2021-04-18] MEDS: FUROSEMIDE 40 MG/4 ML VIAL IV SCH ×2 (08:39→20:11)
[2021-04-18] MEDS: buPROPion HCl 100 MG TABLET PO SCH ×3 (08:39→20:12)
[2021-04-18] MEDS: METOPROLOL TARTRATE 25 MG TAB PO SCH ×3 (08:39→20:12)
[2021-04-18] MEDS: FERROUS SULFATE 325 MG/7.4 ML UDP PO SCH (08:40)
[2021-04-18] MEDS: DOCUSATE SODIUM SYRUP 100 MG/10 ML UDC PO SCH ×2 (08:40→19:55)
[2021-04-18] MEDS: MULTI VIT W/MINERALS LIQUID 15 ML UDP PO SCH (08:40)
[2021-04-18] MEDS: ENOXAPARIN INJ 120 MG/0.8 ML SYR SQ SCH ×2 (08:40→20:12)
[2021-04-18] MEDS: SENNOSIDES 8.8 MG/5 ML UDC PO SCH (08:40)
[2021-04-18] MEDS: AMIODARONE 200 MG TAB PO SCH ×2 (08:40→16:26)
--- NOTE | 2021-04-18 09:34 | Hospitalist Progress Note ---
Date of Service April 18, 2021 Assessment & Plan (1) Acute hypoxemic respiratory failure: (2) ARDS (adult respiratory distress syndrome): (3) Pneumonia due to COVID-19 virus: Plan: 2/2 covid pneumonia, remains on vent 2/2 ARDS. s/p trach and PEG. CTA-no evidence of PE. Remdesivir discontinued by pulmonary service Completed dexamethasone 10 days course Baricitinib given for 6 days but discontinued due to acute DVTs (03/06/21) Had completed abx with cefepime and doxycycline for 7 days in Dec Received an additional 7 day course of Zosyn for serratia in the sputum-early Hong Leukocytosis now normal, remains afebrile. Repeat sputum culture sent growing serratia Zosyn restarted (04/11), Stopped (04/13). Repeat serratia in culture noted ID recs monitoring off abx Trach exchanged (4) Acute DVT (deep venous thrombosis): Plan: Deep venous thrombosis posterior tibial and peroneal veins Likely provoked by COVID-19 infection & baricitinib use Patient reported family history of blood clots Cont full dose Lovenox (5) Atrial fibrillation: Plan: Sinus rhythm. Cont with amiodarone and metoprolol. Anticoagulation with L ovenox. (6) Anxiety: Plan: has h/o PTSD per records, exhibits understandable frustration with current limitations. Less anxious today. Plan: Lovenox Full Code Dispo-LTAC when bed available ROS-No Headache, No Visual Changes, No Nausea, No Vomiting, No Fever, No Chills, No Neck Pain or Stiffness, No Chest Pain, No Palpitations, positive SOB, No MOON, positive cough, positive sputum, No Wheezing, No Abdominal Pain, No Diarrhea, No Hematemesis, No Hemoptysis, No Unexpected Weight Loss, No Flank pain, No Melena, No Hematochezia, No Frequency, No Urgency, No Burning, No Hematuria, No Rashes, No Diaphoresis. Appetite is Poor Physical Exam Gen-AA severe respiratory distressresolved after suctioning yellow mucus from trach, afebrile, +Trach, Head-NCAT, EOMI, PERRLA, Anicteric Sclera, No Posterior Pharyngeal Erythema Neck-Supple, No JVD, No Thyromegaly, No Masses, No LAD, No Bruits Lungs-Clear to Auscultation Bilaterally, No Rales, No Rhonchi, No Wheezing, No Crepitus Chest-No S4, +S1, +S2, No S3, No Murmurs, No Rubs, No Gallops, No Ectopy Abdomen-Soft, Bowel Sounds Present, Non Tender, Non Distended, No Hepatomegaly, No Splenomegaly, No Palpable Masses, No Rebound, No Rigidity, No Guarding, +Peg Musculoskeletal-Full Range of Motion Bilaterally, No CVAT Extremities-No Cyanosis, No Clubbing, + B/L LE Edema 2-3+ Nuero-Cranial Nerves II-XII grossly intact, Motor WNL, DTRs WNL, Strength WNL, N on Focal Psych-Normal Mood Admission and Anticipated Discharge Date Admission Date: March 01, 2021 Subjective Patient resting comfortably today compared to yesterday. Since his episode yesterday has been great. ICU team changed out his size 8 tracheostomy to a size 6 fenestrated tracheostomy on April 16. Results & Data Results & Data ([facility]) Vital Signs (Past 12 Hours) Vital Signs Temp Pulse Resp BP Pulse Ox 04/18/21 04:05 36.7 C 70 19 133/67 100 04/18/21 00:40 36.6 C 64 17 117/60 96 Laboratory Results Reviewed
[2021-04-18] MEDS: oxyCODONE HCL SOLN 5 MG/5 ML UDC PO SCH ×2 (09:41→20:12)
[2021-04-18] MEDS: POTASSIUM CHLORIDE 20 MEQ/15 ML UDC PO SCH ×2 (09:41→20:12)
[2021-04-18] MEDS: PEPTAMEN INTENSE VHP 1.0 CAL 1,000 ML BAG OG SCH (16:25)
[2021-04-18] MEDS: LANSOPRAZOLE 30 MG SOLTAB PO SCH (20:12)
[2021-04-19] MEDS: INSULIN HUMAN REGULAR SC SCH ×5 (01:10→23:38)
[2021-04-19] MEDS: TUBE FEEDING WATER FLUSH OG SCH ×7 (01:11→23:39)
[2021-04-19 04:49] LABS: Hematocrit (blood only) 28.4 % (42-52); Hemoglobin 8.6 g/dL (14.0-18.0); Mean Corpuscular Hemoglobin 28.8 pg (25-34); Mean Corpuscular Hgb Conc 30.3 g/dL (32-36); Mean Platelet Volume 9.2 fL (7.4-10.4); Platelet Count 294 K/uL (130-400); RDW Coefficient of Variation 17.4 % (11.5-14.5); RDW Standard Deviation 59.9 fL (36.4-46.3); Red Blood Count 2.99 M/uL (4.7-6.1); White Blood Count 9.12 K/uL (4.8-10.8)
[2021-04-19 04:58] LABS: Prothrombin Time 10.4 Seconds (9.0-12.0)
[2021-04-19 05:12] LABS: Anion Gap 4 (3-11); BUN Creatinine Ratio 73.2 (10-20); Blood Urea Nitrogen 30 mg/dl (6-23); Calcium 8.4 mg/dl (8.5-10.1); Carbon Dioxide 36 mmol/L (21-32); Chloride 96 mmol/L (98-107); Creatinine Clr Calc Pharmacy 251.1 ml/min; Est GFR (African American) > 150.0 ml/min; Est GFR (Non-African American) 129.6 ml/min; Glucose 110 mg/dl (70-99(Fasting)); Phosphorus 3.1 mg/dl (2.5-4.9); Potassium 3.4 mmol/L (3.5-5.1); Sodium 136 mmol/L (136-145)
--- NOTE | 2021-04-19 09:15 | Hospitalist Progress Note ---
Date of Service April 19, 2021 Assessment & Plan (1) Acute hypoxemic respiratory failure: (2) ARDS (adult respiratory distress syndrome): (3) Pneumonia due to COVID-19 virus: Plan: 2/2 covid pneumonia, remains on vent 2/2 ARDS. s/p trach and PEG. CTA-no evidence of PE. Remdesivir discontinued by pulmonary service Completed dexamethasone 10 days course Baricitinib given for 6 days but discontinued due to acute DVTs (03/06/21) Had completed abx with cefepime and doxycycline for 7 days in Dec Received an additional 7 day course of Zosyn for serratia in the sputum-early Hong Leukocytosis now normal, remains afebrile. Repeat sputum culture sent growing serratia Zosyn restarted (04/11), Stopped (04/13). Repeat serratia in culture noted ID recs monitoring off abx Trach exchanged Start regular food if able today, (4) Acute DVT (deep venous thrombosis): Plan: Deep venous thrombosis posterior tibial and peroneal veins Likely provoked by COVID-19 infection & baricitinib use Patient reported family history of blood clots Cont full dose Lovenox (5) Atrial fibrillation: Plan: Sinus rhythm. Cont with amiodarone and metoprolol. Anticoagulation with Lovenox. (6) Anxiety: Plan: has h/o PTSD per records, exhibits understandable frustration with current limitations. Less anxious today. Plan: Lovenox Full Code Dispo-LTAC when bed available DC PEG tube when eating better ROS-No Headache, No Visual Changes, No Nausea, No Vomiting, No Fever, No Chills, No Neck Pain or Stiffness, No Chest Pain, No Palpitations, positive SOB, No MOON, positive cough, positive sputum, No Wheezing, No Abdominal Pain, No Diarrhea, No Hematemesis, No Hemoptysis, No Unexpected Weight Loss, No Flank pain, No Melena, No Hematochezia, No Frequency, No Urgency, No Burning, No Hematuria, No Rashes, No Diaphoresis. Appetite is very good Physical Exam Gen-awake alert noted x3, not in acute distress, afebrile, +Trach, Head-NCAT, EOMI, PERRLA, Anicteric Sclera, No Posterior Pharyngeal Erythema Neck-Supple, No JVD, No Thyromegaly, No Masses, No LAD, No Bruits Lungs-Clear to Auscultation Bilaterally, No Rales, No Rhonchi, No Wheezing, No Crepitus Chest-No S4, +S1, +S2, No S3, No Murmurs, No Rubs, No Gallops, No Ectopy Abdomen-Soft, Bowel Sounds Present, Non Tender, Non Distended, No Hepatomegaly, No Splenomegaly, No Palpable Masses, No Rebound, No Rigidity, No Guarding, +Peg Musculoskeletal-Full Range of Motion Bilaterally, No CVAT Extremities-No Cyanosis, No Clubbing, + B/L LE Edema 2-3+ Nuero-Cranial Nerves II-XII grossly intact, Motor WNL, DTRs WNL, Strength WNL, Non Focal Psych-Normal Mood Admission and Anticipated Discharge Date Admission Date: March 01, 2021 Subjective Patient resting comfortably today. Results & Data Results & Data ([facility]) Vital Signs (Past 12 Hours) Vital Signs Temp Pulse Resp BP Pulse Ox 04/19/21 04:24 36.9 C 71 22 126/71 94 04/18/21 23:40 36.4 C L 61 18 123/67 94 Laboratory Results Reviewed
[2021-04-19] MEDS: buPROPion HCl 100 MG TABLET PO SCH ×3 (10:00→20:23)
[2021-04-19] MEDS: ASCORBIC ACID 500 MG TAB PO SCH (10:00)
[2021-04-19] MEDS: AMIODARONE 200 MG TAB PO SCH ×2 (10:00→17:08)
[2021-04-19] MEDS: MULTI VIT W/MINERALS LIQUID 15 ML UDP PO SCH (10:01)
[2021-04-19] MEDS: FERROUS SULFATE 325 MG/7.4 ML UDP PO SCH (10:01)
[2021-04-19] MEDS: LANSOPRAZOLE 30 MG SOLTAB PO SCH ×2 (10:01→20:24)
[2021-04-19] MEDS: GABAPENTIN 250 MG/5 ML 470 ML BTL PO SCH ×3 (10:01→20:24)
[2021-04-19] MEDS: DOCUSATE SODIUM SYRUP 100 MG/10 ML UDC PO SCH ×2 (10:01→20:23)
[2021-04-19] MEDS: METOPROLOL TARTRATE 25 MG TAB PO SCH ×3 (10:01→20:24)
[2021-04-19] MEDS: ENOXAPARIN INJ 120 MG/0.8 ML SYR SQ SCH ×2 (10:01→20:23)
[2021-04-19] MEDS: FUROSEMIDE 40 MG TAB PO SCH ×2 (10:02→17:08)
[2021-04-19] MEDS: oxyCODONE HCL SOLN 5 MG/5 ML UDC PO SCH ×2 (10:02→20:23)
[2021-04-19] MEDS: POTASSIUM CHLORIDE 20 MEQ/15 ML UDC PO SCH ×2 (10:02→20:24)
[2021-04-19] MEDS: SENNOSIDES 8.8 MG/5 ML UDC PO SCH (10:02)
[2021-04-19] MEDS: FUROSEMIDE 40 MG/4 ML VIAL IV SCH (10:03)
[2021-04-20] MEDS: TUBE FEEDING WATER FLUSH OG SCH ×3 (04:59→12:31)
[2021-04-20 05:02] LABS: Hemoglobin 8.8 g/dL (14.0-18.0); Mean Corpuscular Hemoglobin 28.9 pg (25-34); Mean Corpuscular Hgb Conc 30.3 g/dL (32-36); Mean Corpuscular Volume 95.4 fL (80-100); Mean Platelet Volume 9.3 fL (7.4-10.4); Platelet Count 276 K/uL (130-400); RDW Coefficient of Variation 17.8 % (11.5-14.5); RDW Standard Deviation 60.8 fL (36.4-46.3); Red Blood Count 3.04 M/uL (4.7-6.1); White Blood Count 8.67 K/uL (4.8-10.8)
[2021-04-20] MEDS: INSULIN HUMAN REGULAR SC SCH ×3 (05:25→17:22)
[2021-04-20] MEDS: AMIODARONE 200 MG TAB PO SCH ×2 (08:14→17:52)
[2021-04-20] MEDS: buPROPion HCl 100 MG TABLET PO SCH ×3 (08:15→20:37)
[2021-04-20] MEDS: METOPROLOL TARTRATE 25 MG TAB PO SCH ×3 (08:15→20:37)
[2021-04-20] MEDS: FUROSEMIDE 40 MG TAB PO SCH ×2 (08:15→17:52)
[2021-04-20] MEDS: ASCORBIC ACID 500 MG TAB PO SCH (08:15)
[2021-04-20] MEDS: LANSOPRAZOLE 30 MG SOLTAB PO SCH ×2 (08:15→20:37)
[2021-04-20] MEDS: DOCUSATE SODIUM SYRUP 100 MG/10 ML UDC PO SCH ×2 (08:16→20:35)
[2021-04-20] MEDS: ENOXAPARIN INJ 120 MG/0.8 ML SYR SQ SCH ×2 (08:16→20:35)
[2021-04-20] MEDS: FERROUS SULFATE 325 MG/7.4 ML UDP PO SCH (08:17)
[2021-04-20] MEDS: MULTI VIT W/MINERALS LIQUID 15 ML UDP PO SCH (08:19)
[2021-04-20] MEDS: SENNOSIDES 8.8 MG/5 ML UDC PO SCH (08:19)
[2021-04-20] MEDS: GABAPENTIN 250 MG/5 ML 470 ML BTL PO SCH ×3 (08:22→20:36)
[2021-04-20] MEDS: oxyCODONE HCL SOLN 5 MG/5 ML UDC PO SCH ×2 (08:22→20:39)
--- NOTE | 2021-04-20 09:34 | Hospitalist Progress Note ---
Date of Service April 20, 2021 Assessment & Plan (1) Acute hypoxemic respiratory failure: (2) ARDS (adult respiratory distress syndrome): (3) Pneumonia due to COVID-19 virus: Plan: 2/2 covid pneumonia, remains on vent 2/2 ARDS. s/p trach and PEG. CTA-no evidence of PE. Remdesivir discontinued by pulmonary service Completed dexamethasone 10 days course Baricitinib given for 6 days but discontinued due to acute DVTs (03/06/21) Had completed abx with cefepime and doxycycline for 7 days in Dec Received an additional 7 day course of Zosyn for serratia in the sputum-early Hong Leukocytosis now normal, remains afebrile. Repeat sputum culture sent growing serratia Zosyn restarted (04/11), Stopped (04/13). Repeat serratia in culture noted ID recs monitoring off abx Trach exchanged Advance diet, full PEG if tolerating diet in the next few days Oxygen requirements are going down (4) Acute DVT (deep venous thrombosis): Plan: Deep venous thrombosis posterior tibial and peroneal veins Likely provoked by COVID-19 infection & baricitinib use Patient reported family history of blood clots Cont full dose Lovenox (5) Atrial fibrillation: Plan: Sinus rhythm. Cont with amiodarone and metoprolol. Anticoagulation with Lovenox. (6) Anxiety: Plan: has h/o PTSD per records, exhibits understandable frustration with current limitations. Less anxious today. Plan: Lovenox Full Code Dispo-LTAC when bed available DC PEG tube when eating better ROS-No Headache, No Visual Changes, No Nausea, No Vomiting, No Fever, No Chills, No Neck Pain or Stiffness, No Chest Pain, No Palpitations, positive SOB, No MOON, positive cough, positive sputum, No Wheezing, No Abdominal Pain, No Diarrhea, No Hematemesis, No Hemoptysis, No Unexpected Weight Loss, No Flank pain, No Melena, No Hematochezia, No Frequency, No Urgency, No Burning, No Hematuria, No Rashes, No Diaphoresis. Appetite is very good Physical Exam Gen-awake alert noted x3, not in acute distress, afebrile, +Trach, Head-NCAT, EOMI, PERRLA, Anicteric Sclera, No Posterior Pharyngeal Erythema Neck-Supple, No JVD, No Thyromegaly, No Masses, No LAD, No Bruits Lungs-Clear to Auscultation Bilaterally, No Rales, No Rhonchi, No Wheezing, No Crepitus Chest-No S4, +S1, +S2, No S3, No Murmurs, No Rubs, No Gallops, No Ectopy Abdomen-Soft, Bowel Sounds Present, Non Tender, Non Distended, No Hepatomegaly, No Splenomegaly, No Palpable Masses, No Rebound, No Rigidity, No Guarding, +Peg Musculoskeletal-Full Range of Motion Bilaterally, No CVAT Extremities-No Cyanosis, No Clubbing, + B/L LE Edema improved Nuero-Cranial Nerves II-XII grossly intact, Motor WNL, DTRs WNL, Strength WNL, Non Focal Psych-Normal Mood Admission and Anticipated Discharge Date Admission Date: March 01, 2021 Subjective Patient resting comfortably today. Looking better each day Results & Data Results & Data ([facility]) Vital Signs (Past 12 Hours) Vital Signs Temp Pulse Resp BP Pulse Ox 04/20/21 07:47 37.3 C 87 24 126/72 93 04/20/21 04:00 36.9 C 67 20 133/63 95 04/20/21 00:12 36.9 C 66 22 112/63 95 Laboratory Results Reviewed
[2021-04-20] MEDS: POTASSIUM CHLORIDE 20 MEQ/15 ML UDC PO SCH ×2 (10:42→20:35)
[2021-04-20] MEDS ORDERED: PEPTAMEN INTENSE VHP 1.0 CAL 1,000 ML BAG OG SCH (19:00)
[2021-04-21] MEDS: INSULIN HUMAN REGULAR SC SCH ×6 (00:16→21:11)
[2021-04-21 06:04] LABS: Hematocrit (blood only) 29.8 % (42-52); Hemoglobin 9.1 g/dL (14.0-18.0); Mean Corpuscular Hemoglobin 29.2 pg (25-34); Mean Corpuscular Hgb Conc 30.5 g/dL (32-36); Mean Corpuscular Volume 95.5 fL (80-100); Mean Platelet Volume 9.6 fL (7.4-10.4); Platelet Count 283 K/uL (130-400); RDW Coefficient of Variation 17.9 % (11.5-14.5); RDW Standard Deviation 61.6 fL (36.4-46.3); Red Blood Count 3.12 M/uL (4.7-6.1); White Blood Count 10.33 K/uL (4.8-10.8)
[2021-04-21 06:23] LABS: Albumin Globulin Ratio 0.8 (0.9-2); Albumin Level 2.7 gm/dl (3.4-5.0); Bilirubin,Total 0.3 mg/dl (0.2-1.0); Calcium 8.1 mg/dl (8.5-10.1); Creatinine Clr Calc Pharmacy 199.7 ml/min; Est GFR (African American) 137.3 ml/min; Est GFR (Non-African American) 118.5 ml/min; Globulin 3.2 gm/dl (2.5-4.0); Phosphorus 2.7 mg/dl (2.5-4.9); Total Protein 5.9 gm/dl (6.0-8.3)
[2021-04-21] MEDS: LANSOPRAZOLE 30 MG SOLTAB PO SCH ×2 (08:03→20:42)
[2021-04-21] MEDS: AMIODARONE 200 MG TAB PO SCH ×2 (08:03→17:04)
[2021-04-21] MEDS: buPROPion HCl 100 MG TABLET PO SCH ×3 (08:03→20:41)
[2021-04-21] MEDS: POTASSIUM CHLORIDE 20 MEQ/15 ML UDC PO SCH ×2 (08:04→20:43)
[2021-04-21] MEDS: METOPROLOL TARTRATE 25 MG TAB PO SCH ×3 (08:04→20:42)
[2021-04-21] MEDS: FERROUS SULFATE 325 MG/7.4 ML UDP PO SCH (08:05)
[2021-04-21] MEDS: DOCUSATE SODIUM SYRUP 100 MG/10 ML UDC PO SCH ×2 (08:06→20:43)
[2021-04-21] MEDS: MULTI VIT W/MINERALS LIQUID 15 ML UDP PO SCH (08:06)
[2021-04-21] MEDS: SENNOSIDES 8.8 MG/5 ML UDC PO SCH (08:06)
[2021-04-21] MEDS: oxyCODONE HCL SOLN 5 MG/5 ML UDC PO SCH ×2 (08:07→20:47)
[2021-04-21] MEDS: FUROSEMIDE 40 MG TAB PO SCH ×2 (08:07→17:04)
[2021-04-21] MEDS: ENOXAPARIN INJ 120 MG/0.8 ML SYR SQ SCH ×2 (08:08→20:41)
[2021-04-21] MEDS: ASCORBIC ACID 500 MG TAB PO SCH (08:10)
[2021-04-21] MEDS: GABAPENTIN 250 MG/5 ML 470 ML BTL PO SCH ×3 (08:42→20:47)
[2021-04-21] MEDS ORDERED: Nursing to Pharmacy Communication SCH (10:30)
--- NOTE | 2021-04-21 17:49 | Hospitalist Progress Note ---
Date of Service April 21, 2021 Assessment & Plan (1) Pneumonia due to COVID-19 virus: (2) Acute hypoxemic respiratory failure: (3) Atrial fibrillation: Plan: (1) Acute hypoxemic respiratory failure: (2) ARDS (adult respiratory distress syndrome): (3) Pneumonia due to COVID-19 virus: 2/2 covid pneumonia, remains on vent 2/2 ARDS. s/p trach and PEG. Admitting CTA-no evidence of PE. Remdesivir discontinued by pulmonary service Completed dexamethasone 10 days course Baricitinib given for 6 days but discontinued due to acute DVTs (03/06/21) Had completed abx with cefepime and doxycycline for 7 days in Dec Received an additional 7 day course of Zosyn for serratia in the sputum-early Hong Leukocytosis now normal, remains afebrile. Repeat sputum culture sent growing serratia Zosyn restarted (04/11), Stopped (04/13). Repeat serratia in culture noted ID recs monitoring off abx Trach exchanged Advance diet, pull PEG if tolerating diet in the next few days Oxygen requirements are going down Repeat CXR in 4-6 weeks to ensure resolution. c/w vest therapy prn to help w/ mucociliary clearance. Will need OP eval for decanulation of trach, f/u Pulm as OP. (4) Acute DVT (deep venous thrombosis): Plan: Deep venous thrombosis posterior tibial and peroneal veins; initially noted 03/05/21 Likely provoked by COVID-19 infection & baricitinib use No family history of blood clots per patient's , no personal history of cancer or prior blood clots, patient is non-smoker. Cont full dose Lovenox --> warfarin started at 5 mg daily 04/21 Stop Lovenox once patient therapeutic. (5) Atrial fibrillation: Plan: Sinus rhythm. Cont with amiodarone and metoprolol. Anticoagulation with Lovenox ---> warfarin (6) Anxiety: Plan: has h/o PTSD per records Less anxious today. Plan: Lovenox --> warfarin Full Code Dispo-LTAC when bed available DC PEG tube when eating better 04/21 --> discussed with at bedside regarding pros and cons of different types of anticoagulation, given he has history of acoustic neuroma left ear and has balance problem, the decision was made to use anticoagulation that could be easily reversed (in case he falls) and hence it was decided to go with warfarin at this point. Admission and Anticipated Discharge Date Admission Date: March 01, 2021 Subjective Patient lying in bed, on 10 L via trach collar, NAD, no new acute events overnight. Patient reports eating okay and also has PEG tube. Patient denies any fever/chills/chest pain/palpitations/belly pain/other review of symptoms. Physical Exam Physical Exam: GENERAL: Alert and oriented x3. NAD, on 10L via Oxymask. HEENT: No pallor, no icterus. Pupils equal, round and reactive to light. Oral mucosa moist. NECK: No JVD, no neck masses. Trach collar and trach tube in situ. HEART: S1 and S2 heard. Regular rate and rhythm. No murmur, no gallop. RESPIRATORY SYSTEM: Normal AP diameter. No accessory muscle use. No wheezing, occasional crackles. ABDOMEN: Soft, bowel sounds present, nontender, no distention. PEG tube in situ. CENTRAL NERVOUS SYSTEM: No facial droop. Speech is clear. Obeys simple commands. Moves extremities. EXTREMITIES: trace ble edema, no erythema seen. Results & Data Results & Data ([facility]) Vital Signs (Past 12 Hours) Vital Signs Temp Pulse Pulse Resp BP BP Pulse Ox 04/21/21 16:00 67 04/21/21 15:48 37.0 C 65 18 112/69 94 04/21/21 10:59 36.6 C 63 20 108/64 99 04/21/21 08:00 70 04/21/21 07:00 37.1 C 71 20 123/73 99
[2021-04-21] MEDS: WARFARIN SOD 5 MG TAB PO SCH (18:42)
[2021-04-21] MEDS: PEPTAMEN INTENSE VHP 1.0 CAL 1,000 ML BAG OG SCH (19:26)
[2021-04-22] MEDS: METOPROLOL TARTRATE 25 MG TAB PO SCH ×3 (04:43→20:03)
[2021-04-22 06:00] LABS: Hematocrit (blood only) 29.5 % (42-52); Hemoglobin 9.1 g/dL (14.0-18.0); Mean Corpuscular Hemoglobin 29.9 pg (25-34); Mean Corpuscular Hgb Conc 30.8 g/dL (32-36); Mean Platelet Volume 9.6 fL (7.4-10.4); Platelet Count 269 K/uL (130-400); RDW Coefficient of Variation 17.9 % (11.5-14.5); RDW Standard Deviation 63.2 fL (36.4-46.3); Red Blood Count 3.04 M/uL (4.7-6.1); White Blood Count 10.98 K/uL (4.8-10.8)
[2021-04-22 06:16] LABS: Prothrombin Time 10.6 Seconds (9.0-12.0)
[2021-04-22 06:35] LABS: BUN Creatinine Ratio 43.2 (10-20); Creatinine Clr Calc Pharmacy 231.5 ml/min; Est GFR (African American) 145.9 ml/min; Est GFR (Non-African American) 125.9 ml/min; Potassium 4.1 mmol/L (3.5-5.1)
[2021-04-22] MEDS: INSULIN HUMAN REGULAR SC SCH ×4 (08:30→20:38)
[2021-04-22] MEDS: POTASSIUM CHLORIDE 20 MEQ/15 ML UDC PO SCH ×2 (09:35→20:03)
[2021-04-22] MEDS: oxyCODONE HCL SOLN 5 MG/5 ML UDC PO SCH ×2 (09:35→20:02)
[2021-04-22] MEDS: LANSOPRAZOLE 30 MG SOLTAB PO SCH ×2 (09:36→20:02)
[2021-04-22] MEDS: DOCUSATE SODIUM SYRUP 100 MG/10 ML UDC PO SCH ×2 (09:36→20:01)
[2021-04-22] MEDS: ASCORBIC ACID 500 MG TAB PO SCH (09:36)
[2021-04-22] MEDS: buPROPion HCl 100 MG TABLET PO SCH (09:37)
[2021-04-22] MEDS: GABAPENTIN 250 MG/5 ML 470 ML BTL PO SCH ×3 (09:37→20:01)
[2021-04-22] MEDS: MULTI VIT W/MINERALS LIQUID 15 ML UDP PO SCH (09:37)
[2021-04-22] MEDS: FERROUS SULFATE 325 MG/7.4 ML UDP PO SCH (09:37)
[2021-04-22] MEDS: FUROSEMIDE 40 MG TAB PO SCH ×2 (09:37→17:11)
[2021-04-22] MEDS: ENOXAPARIN INJ 120 MG/0.8 ML SYR SQ SCH ×2 (09:37→20:01)
[2021-04-22] MEDS: AMIODARONE 200 MG TAB PO SCH ×2 (09:38→17:11)
[2021-04-22] MEDS: WARFARIN SOD 5 MG TAB PO SCH (17:10)
--- NOTE | 2021-04-22 17:39 | Hospitalist Progress Note ---
Date of Service April 22, 2021 Assessment & Plan (1) Pneumonia due to COVID-19 virus: (2) Acute hypoxemic respiratory failure: (3) Atrial fibrillation: Plan: (1) Acute hypoxemic respiratory failure: (2) ARDS (adult respiratory distress syndrome): (3) Pneumonia due to COVID-19 virus: 2/2 covid pneumonia, remains on vent 2/2 ARDS. s/p trach and PEG. Admitting CTA-no evidence of PE. Remdesivir discontinued by pulmonary service Completed dexamethasone 10 days course Baricitinib given for 6 days but discontinued due to acute DVTs (03/06/21) Had completed abx with cefepime and doxycycline for 7 days in Dec Received an additional 7 day course of Zosyn for serratia in the sputum-early Hong Leukocytosis now normal, remains afebrile. Repeat sputum culture sent growing serratia Zosyn restarted (04/11), Stopped (04/13). Repeat serratia in culture noted ID recs monitoring off abx Trach exchanged Advance diet, pull PEG if tolerating diet in the next few days Oxygen requirements has stayed stable around 10L via trach Repeat CXR in 4-6 weeks to ensure resolution. c/w vest therapy prn to help w/ mucociliary clearance. Will need OP eval for decanulation of trach, f/u Pulm as OP. (4) Acute DVT (deep venous thrombosis): Plan: Deep venous thrombosis posterior tibial and peroneal veins; initially noted 03/05/21 Likely provoked by COVID-19 infection & baricitinib use No family history of blood clots per patient's , no personal history of cancer or prior blood clots, patient is non-smoker. Cont full dose Lovenox --> warfarin started at 5 mg daily 04/21. INR 1.0 today. Stop Lovenox once patient therapeutic. (5) Atrial fibrillation: Plan: Sinus rhythm. Cont with amiodarone and metoprolol. Anticoagulation with Lovenox ---> warfarin (6) Anxiety: Plan: has h/o PTSD per records Less anxious today. Plan: Lovenox --> warfarin Full Code Dispo-LTAC when bed available DC PEG tube when eating better 04/21 --> discussed with at bedside regarding pros and cons of different types of anticoagulation, given he has history of acoustic neuroma left ear and has balance problem, the decision was made to use anticoagulation that could be easily reversed (in case he falls) and hence it was decided to go with warfarin at this point. Admission and Anticipated Discharge Date Admission Date: March 01, 2021 Subjective Patient seen and examined for acute respiratory failure secondary to pneumonia secondary to COVID-19 virus infection. Patient lying in bed, on 10 L via trach collar, NAD, no new acute events overnight. Patient reports eating okay and also has PEG tube. Patient reports moving bowels okay. Patient denies any fever/chills/chest pain/palpitations/belly pain/other review of symptoms. Physical Exam Physical Exam: GENERAL: Alert and oriented x3. NAD, on 10L via Oxymask. HEENT: No pallor, no icterus. Pupils equal, round and reactive to light. Oral mucosa moist. NECK: No JVD, no neck masses. Trach collar and trach tube in situ. HEART: S1 and S2 heard. Regular rate and rhythm. No murmur, no gallop. RESPIRATORY SYSTEM: Normal AP diameter. No accessory muscle use. No wheezing, occasional crackles. ABDOMEN: Soft, bowel sounds present, nontender, no distention. PEG tube in situ. CENTRAL NERVOUS SYSTEM: No facial droop. Speech is clear. Obeys simple commands. Moves extremities. EXTREMITIES: 1+ ble edema, no erythema seen. Results & Data Results & Data ([facility]) Vital Signs (Past 12 Hours) Vital Signs Temp Pulse Pulse Resp BP Pulse Ox 04/22/21 17:09 62 117/68 04/22/21 15:00 70 04/22/21 14:36 36.8 C 72 18 106/66 99 04/22/21 11:09 36.3 C L 67 20 112/71 99 04/22/21 09:35 67 04/22/21 07:00 36.6 C 59 L 61 20 126/71 98
[2021-04-22] MEDS: PEPTAMEN INTENSE VHP 1.0 CAL 1,000 ML BAG OG SCH (19:00)
[2021-04-23 07:40] LABS: INR 1.1 (0.9-1.1); Prothrombin Time 11.3 Seconds (9.0-12.0)
[2021-04-23] MEDS: INSULIN HUMAN REGULAR SC SCH ×4 (10:03→21:38)
[2021-04-23] MEDS: POTASSIUM CHLORIDE 20 MEQ/15 ML UDC PO SCH ×2 (10:04→21:15)
[2021-04-23] MEDS: ASCORBIC ACID 500 MG TAB PO SCH (10:05)
[2021-04-23] MEDS: FERROUS SULFATE 325 MG/7.4 ML UDP PO SCH (10:06)
[2021-04-23] MEDS: AMIODARONE 200 MG TAB PO SCH (10:07)
[2021-04-23] MEDS: METOPROLOL TARTRATE 25 MG TAB PO SCH ×3 (10:07→21:15)
[2021-04-23] MEDS: MULTI VIT W/MINERALS LIQUID 15 ML UDP PO SCH (10:07)
[2021-04-23] MEDS: LANSOPRAZOLE 30 MG SOLTAB PO SCH ×2 (10:08→21:14)
[2021-04-23] MEDS: DOCUSATE SODIUM SYRUP 100 MG/10 ML UDC PO SCH (10:08)
[2021-04-23] MEDS: FUROSEMIDE 40 MG TAB PO SCH ×2 (10:09→17:38)
[2021-04-23] MEDS: ENOXAPARIN INJ 120 MG/0.8 ML SYR SQ SCH ×2 (10:09→21:08)
[2021-04-23] MEDS ORDERED: HYDROCODONE BITARTRATE PO PRN (11:40)
[2021-04-23] MEDS ORDERED: ONLY PO PRN (11:40)
[2021-04-23] MEDS ORDERED: Nursing to Pharmacy Communication SCH (12:00)
[2021-04-23] MEDS: buPROPion HCl 100 MG TABLET PO SCH ×2 (13:17→21:16)
[2021-04-23] MEDS: CYANOCOBALAMIN 1000 MCG/ML VIAL IM SCH (13:18)
[2021-04-23] MEDS: GABAPENTIN 250 MG/5 ML 470 ML BTL PO SCH ×2 (13:18→21:08)
--- NOTE | 2021-04-23 14:47 | Hospitalist Progress Note ---
Date of Service April 23, 2021 Assessment & Plan (1) Pneumonia due to COVID-19 virus: (2) Acute hypoxemic respiratory failure: (3) Atrial fibrillation: Plan: (1) Acute hypoxemic respiratory failure: (2) ARDS (adult respiratory distress syndrome): (3) Pneumonia due to COVID-19 virus: 2/2 covid pneumonia, remains on vent 2/2 ARDS. s/p trach and PEG. Admitting CTA-no evidence of PE. Remdesivir discontinued by pulmonary service Completed dexamethasone 10 days course Baricitinib given for 6 days but discontinued due to acute DVTs (03/06/21) Had completed abx with cefepime and doxycycline for 7 days in Dec Received an additional 7 day course of Zosyn for serratia in the sputum-early Hong Leukocytosis now normal, remains afebrile. Repeat sputum culture sent growing serratia Zosyn restarted (04/11), Stopped (04/13). Repeat serratia in culture noted ID recs monitoring off abx Trach exchanged Advance diet, pull PEG if tolerating diet well, reached out to Dermatology Physician Assistant for suggestion Oxygen requirements has stayed stable around 10L via trach Repeat CXR in 4-6 weeks to ensure resolution. c/w vest therapy prn to help w/ mucociliary clearance. Will need OP eval for decanulation of trach, f/u Pulm as OP. (4) Acute DVT (deep venous thrombosis): Plan: Deep venous thrombosis posterior tibial and peroneal veins; initially noted 02/24 Likely provoked by COVID-19 infection & baricitinib use No family history of blood clots per patient's , no personal history of cancer or prior blood clots, patient is non-smoker. Cont full dose Lovenox --> warfarin started at 5 mg daily 04/21. INR 1.1 today. Extra 2.5 mg dose today, 04/23 d/w pharmacy. Stop Lovenox once patient therapeutic. (5) Atrial fibrillation: Plan: Sinus rhythm. Cont with amiodarone and metoprolol. Anticoagulation with Lovenox ---> warfarin REached out to [facility] 04/23 for reconfirmation of his home meds, now that he is more stable and awaiting placement. Any DC recs from [facility]? (6) Anxiety: Plan: has h/o PTSD per records Less anxious today. Plan: Lovenox --> warfarin Full Code Dispo-LTAC when bed available DC PEG tube when eating better 04/21 --> discussed with at bedside regarding pros and cons of different types of anticoagulation, given he has history of acoustic neuroma left ear and has balance problem, the decision was made to use anticoagulation that could be easily reversed (in case he falls) and hence it was decided to go with warfarin at this point. Admission and Anticipated Discharge Date Admission Date: March 01, 2021 Subjective Patient seen and examined for acute respiratory failure secondary to pneumonia secondary to COVID-19 virus infection. Patient lying in bed, on 10 L via trach collar, NAD, no new acute events overnight. Patient reports eating okay/moving bowels okay and also has PEG tube. Patient denies any fever/chills/chest pain/palpitations/belly pain/other review of symptoms. Per RN, he was feeling "weird/spacey" late in the morning, due to automatic discontinuation of his gabapentin and oxycodone, he did not get his medications in the morning, his home doses restarted. Physical Exam Physical Exam: GENERAL: Alert and oriented x3. NAD, on 10L via Oxymask. HEENT: No pallor, no icterus. Pupils equal, round and reactive to light. Oral mucosa moist. NECK: No JVD, no neck masses. Trach collar and trach tube in situ. HEART: S1 and S2 heard. Regular rate and rhythm. No murmur, no gallop. RESPIRATORY SYSTEM: Normal AP diameter. No accessory muscle use. No wheezing, occasional crackles. ABDOMEN: Soft, bowel sounds present, nontender, no distention. PEG tube in situ. CENTRAL NERVOUS SYSTEM: No facial droop. Speech is clear. Obeys simple commands. Moves extremities. EXTREMITIES: 1+ ble edema, no erythema seen. Results & Data Results & Data ([facility]) Vital Signs (Past 12 Hours) Vital Signs Temp Pulse Pulse Resp BP Pulse Ox 04/23/21 11:09 36.7 C 84 20 138/79 91 04/23/21 07:45 73 04/23/21 07:00 37.4 C 73 18 133/77 97 04/23/21 03:17 36.9 C 64 18 113/66 97
[2021-04-23] MEDS ORDERED: WARFARIN SOD 2.5 MG TAB PO ONE (16:00)
[2021-04-23] MEDS: WARFARIN SOD 5 MG TAB PO SCH (17:38)
[2021-04-23] MEDS: ACETAMINOPHEN SUSP 325 MG/10.15 ML UDC NG PRN (17:52)
[2021-04-23] MEDS ORDERED: DOCUSATE SODIUM SYRUP 100 MG/10 ML UDC PO PRN (20:22)
[2021-04-23] MEDS: PEPTAMEN INTENSE VHP 1.0 CAL 1,000 ML BAG OG SCH (21:29)
[2021-04-24 07:39] LABS: INR 1.5 (0.9-1.1); Prothrombin Time 14.6 Seconds (9.0-12.0)
[2021-04-24] MEDS: buPROPion HCl 100 MG TABLET PO SCH ×3 (08:08→20:11)
[2021-04-24] MEDS: FUROSEMIDE 40 MG TAB PO SCH ×2 (08:08→17:04)
[2021-04-24] MEDS: LANSOPRAZOLE 30 MG SOLTAB PO SCH ×2 (08:08→20:12)
[2021-04-24] MEDS: ASCORBIC ACID 500 MG TAB PO SCH (08:08)
[2021-04-24] MEDS: METOPROLOL TARTRATE 25 MG TAB PO SCH ×3 (08:08→20:15)
[2021-04-24] MEDS: AMIODARONE 200 MG TAB PO SCH (08:08)
[2021-04-24] MEDS: MULTI VIT W/MINERALS LIQUID 15 ML UDP PO SCH (08:09)
[2021-04-24] MEDS: GABAPENTIN 250 MG/5 ML 470 ML BTL PO SCH ×3 (08:09→20:11)
[2021-04-24] MEDS: FERROUS SULFATE 325 MG/7.4 ML UDP PO SCH (08:09)
[2021-04-24] MEDS: FLUoxetine HCL 20 MG/5 ML 120ML BTL PO SCH (08:09)
[2021-04-24] MEDS: POTASSIUM CHLORIDE 20 MEQ/15 ML UDC PO SCH ×2 (08:09→20:16)
[2021-04-24] MEDS: ENOXAPARIN INJ 120 MG/0.8 ML SYR SQ SCH (08:09)
[2021-04-24] MEDS: INSULIN HUMAN REGULAR SC SCH ×4 (08:30→20:25)
--- NOTE | 2021-04-24 10:32 | XRay Report ---
XR chest 1V portable HISTORY: 60 years-old Male r/o infxn, inc cough acute cough COMPARISON: Chest radiograph 04/16/2021 TECHNIQUE: Portable AP view of the chest FINDINGS: Tracheostomy cannula overlies the midline. The cardiomediastinal and hilar silhouettes are unchanged. A right-sided PICC distal tip projects over the right atrium. No pneumothorax. The lungs are hypoinf lated. Unchanged blunting of the costophrenic angles. Bilateral mixed interstitial and alveolar opaci ties have slightly improved. Degenerative changes of the shoulders and spine. Mild gaseous distention of the stomach. IMPRESSION: 1. Mixed interstitial and alveolar opacities have mildly improved from the 04/16/2021 study. 2. Cardiomegaly. 3. Unchanged positioning of the tracheostomy cannula and right-sided PICC. ACT 112: Negative or not required by law. The above report was generated using voice recognition software. It may contain grammatical, syntax o r spelling errors. Electronically signed by: Omer Coto M.D. 04/24/2021 10:31 AM
[2021-04-24 10:43] LABS: Basophils # (auto) 0.03 K/uL (0-0.2); Basophils % (auto) 0.2 %; Eosinophils # (auto) 0.49 K/uL (0-0.5); Eosinophils % (auto) 4.1 %; Hematocrit (blood only) 34.2 % (42-52); Hemoglobin 10.5 g/dL (14.0-18.0); Immature Granulocytes # (auto) 0.38 K/uL (0.00-0.02); Immature Granulocytes % (auto) 3.2 %; Lymphocytes # (auto) 2.35 K/uL (1.2-3.4); Lymphocytes % (auto) 19.5 %; Mean Corpuscular Hemoglobin 29.4 pg (25-34); Mean Corpuscular Hgb Conc 30.7 g/dL (32-36); Mean Corpuscular Volume 95.8 fL (80-100); Mean Platelet Volume 9.7 fL (7.4-10.4); Monocytes # (auto) 1.42 K/uL (0.11-0.59); Monocytes % (auto) 11.8 %; Neutrophils # (auto) 7.39 K/uL (1.4-6.5); Neutrophils % (auto) 61.2 %; Platelet Count 377 K/uL (130-400); RDW Coefficient of Variation 18.1 % (11.5-14.5); RDW Standard Deviation 62.7 fL (36.4-46.3); Red Blood Count 3.57 M/uL (4.7-6.1); White Blood Count 12.06 K/uL (4.8-10.8)
[2021-04-24 11:12] LABS: Troponin I < 0.03 ng/ml (0-0.04)
[2021-04-24 11:15] LABS: Alanine Aminotransferase 52 U/L (7-52); Alkaline Phosphatase 93 U/L (34-104); Anion Gap 5 (3-11); Aspartate Aminotransferase 21 U/L (13-39); BUN Creatinine Ratio 36.7 (10-20); Bilirubin,Total 0.3 mg/dl (0.2-1.0); Blood Urea Nitrogen 18 mg/dl (6-23); Calcium 8.4 mg/dl (8.5-10.1); Carbon Dioxide 28 mmol/L (21-32); Chloride 102 mmol/L (98-107); Creatinine Clr Calc Pharmacy 204.9 ml/min; Est GFR (African American) 139.6 ml/min; Est GFR (Non-African American) 120.5 ml/min; Globulin 3.1 gm/dl (2.5-4.0); Glucose 111 mg/dl (70-99(Fasting)); Magnesium 1.9 mg/dl (1.7-2.4); Phosphorus 3.4 mg/dl (2.5-4.9); Potassium 4.2 mmol/L (3.5-5.1); Sodium 135 mmol/L (136-145); Total Protein 6.1 gm/dl (6.0-8.3)
--- NOTE | 2021-04-24 11:40 | Electrocardiogram Report ---
Test Reason : Blood Pressure : / mmHG Vent. Rate : 063 BPM Atrial Rate : 063 BPM P-R Int : 176 ms QRS Dur : 088 ms QT Int : 414 ms P-R-T Axes : 018 019 041 degrees QTc Int : 423 ms Normal sinus rhythm Normal ECG When compared with ECG of 14-APR-2021 05:38, Significant changes have occurred Confirmed by Bowen Woods ([id number]) on 04/24/2021 11:39:46 AM Referred By: REFERRED SELF Confirmed By:Bowen Woods
[2021-04-24 12:28] LABS: Influenza A virus by PCR Negative (Negative); Influenza B virus by PCR Negative (Negative)
[2021-04-24 12:39] LABS: Appearance Urine Clear (Clear); Bilirubin Urine Negative (Negative); Blood Urine Negative (Negative); Color Urine Yellow; Glucose Urine UA Negative (Negative); Ketones Urine Negative (Negative); Leukocyte Esterase Urine Negative (Negative); Nitrite Urine Negative (Negative); Protein Urine Negative (Negative); Specific Gravity Urine 1.014 (1.000-1.030); Urobilinogen Urine Negative (Negative)
[2021-04-24] MEDS: CALCIUM CARBONATE 500 MG CHEWABLE TAB PO SCH ×2 (14:53→20:10)
--- NOTE | 2021-04-24 15:40 | Hospitalist Progress Note ---
Date of Service April 24, 2021 Assessment & Plan (1) Pneumonia due to COVID-19 virus: (2) Acute hypoxemic respiratory failure: (3) Atrial fibrillation: Plan: (1) Acute hypoxemic respiratory failure: (2) ARDS (adult respiratory distress syndrome): (3) Pneumonia due to COVID-19 virus: 2/2 covid pneumonia, remains on vent 2/2 ARDS. s/p trach and PEG. Admitting CTA-no evidence of PE. Remdesivir discontinued by pulmonary service Completed dexamethasone 10 days course Baricitinib given for 6 days but discontinued due to acute DVTs (03/06/21) Had completed abx with cefepime and doxycycline for 7 days in Dec Received an additional 7 day course of Zosyn for serratia in the sputum-early Hong Leukocytosis now normal, remains afebrile. Repeat sputum culture sent growing serratia Zosyn restarted (04/11), Stopped (04/13). Repeat serratia in culture noted ID recs monitoring off abx Trach exchanged Advance diet, pull PEG if tolerating diet well, d/w databases software consultant--> will need to to be in place for 4 to 6 weeks and evaluation at that point. Oxygen requirements has stayed stable around 10L via trach Repeat CXR in 4-6 weeks to ensure resolution. c/w vest therapy prn to help w/ mucociliary clearance. Will need OP eval for decanulation of trach, f/u Pulm as OP. #. Not feeling well Patient reports feeling tired/feverish feeling today morning, associated upper belly pain. Patient afebrile according to records. Urinalysis, CBC, CMP, troponin, magnesium, phosphorus, CXR, EKG, procalcitonin sent and reviewed. Also discussed the case with 2 other colleagues and no cause/problem could be appreciated at this point in time. All the labs fairly WNL with minimal elevation of WBC, EKG WNL, chest x-ray infact minimally better than the priors Blood culture sent, awaiting results, will continue to monitor with daily CBC and electrolytes, will give a dose of melatonin and see if it helps with his sleeping. Patient is updated about his labs sent today and his was present at the bedside. Answered all his and his 's questions. They voiced understanding and were agreeable to the plan of care. Patient reports feeling better during the afternoon round. (4) Acute DVT (deep venous thrombosis): Plan: Deep venous thrombosis posterior tibial and peroneal veins; initially noted 03/05/21 Likely provoked by COVID-19 infection & baricitinib use No family history of blood clots per patient's , no personal history of cancer or prior blood clots, patient is non-smoker. Cont full dose Lovenox --> warfarin started at 5 mg daily 04/21. INR 1.5 today. 04/23 d/w pharmacy. Stop Lovenox once patient therapeutic. (5) Atrial fibrillation: Plan: Sinus rhythm. Cont with amiodarone and metoprolol. Anticoagulation with Lovenox ---> warfarin REached out to [facility] 04/23 for reconfirmation of his home meds, now that he is more stable and awaiting placement. Appreciate any DC recs from [facility]? (6) Anxiety: Plan: has h/o PTSD per records Less anxious today. Plan: Lovenox --> warfarin Full Code Dispo-LTAC when bed available DC PEG tube when eating better 04/21 --> discussed with at bedside regarding pros and cons of different types of anticoagulation, given he has history of acoustic neuroma left ear and has balance problem, the decision was made to use anticoagulation that could be easily reversed (in case he falls) and hence it was decided to go with warfarin at this point. 04/23 and 04/24: Updated patient's at the bedside with the current status of the patient. Answered all her questions. She voiced understanding and was agreeable to the plan of care. Admission and Anticipated Discharge Date Admission Date: March 01, 2021 Subjective Patient seen and examined for acute respiratory failure secondary to pneumonia secondary to COVID-19 virus infection. Patient lying in bed, on 10 L via trach collar, NAD, not able to sleep overnight but no acute events. Patient reports eating okay/moving bowels okay and also has PEG tube. Patient reports feverish feeling in the morning and feeling tired. Also reports upper belly pain. Patient denies any chills/chest pain/palpitations/other belly pain/other review of symptoms. Physical Exam Physical Exam: GENERAL: Alert and oriented x3. NAD, on 10L via Oxymask. HEENT: No pallor, no icterus. Pupils equal, round and reactive to light. Oral mucosa moist. NECK: No JVD, no neck masses. Trach collar and trach tube in situ. HEART: S1 and S2 heard. Regular rate and rhythm. No murmur, no gallop. RESPIRATORY SYSTEM: Normal AP diameter. No accessory muscle use. No wheezing, occasional crackles. ABDOMEN: Soft, bowel sounds present, nontender, no distention. PEG tube in situ. CENTRAL NERVOUS SYSTEM: No facial droop. Speech is clear. Obeys simple comma nds. Moves extremities. EXTREMITIES: 1+ ble edema, no erythema seen. Results & Data Results & Data ([facility]) Vital Signs (Past 12 Hours) Vital Signs Temp Pulse Pulse Resp BP Pulse Ox 04/24/21 15:00 67 04/24/21 13:52 67 115/63 04/24/21 11:14 36.3 C L 64 18 119/74 98 04/24/21 08:06 36.9 C 67 18 107/62 96 04/24/21 08:00 65 04/24/21 07:15 36.9 C 67 18 107/62 96 04/24/21 04:24 36.4 C L 61 16 126/77 100
[2021-04-24] MEDS: WARFARIN SOD 5 MG TAB PO SCH (17:04)
[2021-04-24] MEDS: PEPTAMEN INTENSE VHP 1.0 CAL 1,000 ML BAG OG SCH (19:12)
[2021-04-24] MEDS ORDERED: MELATONIN 3 MG TAB PO ONE (21:00)
[2021-04-25 06:21] LABS: INR 2.5 (0.9-1.1); Prothrombin Time 23.5 Seconds (9.0-12.0)
[2021-04-25 06:27] LABS: Hematocrit (blood only) 32.1 % (42-52); Hemoglobin 9.9 g/dL (14.0-18.0); Mean Corpuscular Hemoglobin 29.5 pg (25-34); Mean Corpuscular Hgb Conc 30.8 g/dL (32-36); Mean Corpuscular Volume 95.5 fL (80-100); Mean Platelet Volume 9.5 fL (7.4-10.4); Platelet Count 346 K/uL (130-400); RDW Coefficient of Variation 18.5 % (11.5-14.5); RDW Standard Deviation 64.4 fL (36.4-46.3); Red Blood Count 3.36 M/uL (4.7-6.1); White Blood Count 10.35 K/uL (4.8-10.8)
[2021-04-25 06:44] LABS: Magnesium 1.9 mg/dl (1.7-2.4); Phosphorus 4.1 mg/dl (2.5-4.9)
[2021-04-25] MEDS: INSULIN HUMAN REGULAR SC SCH ×4 (08:30→22:33)
[2021-04-25] MEDS: MULTI VIT W/MINERALS LIQUID 15 ML UDP PO SCH (08:45)
[2021-04-25] MEDS: LANSOPRAZOLE 30 MG SOLTAB PO SCH ×2 (08:46→19:41)
[2021-04-25] MEDS: FLUoxetine HCL 20 MG/5 ML 120ML BTL PO SCH (08:46)
[2021-04-25] MEDS: GABAPENTIN 250 MG/5 ML 470 ML BTL PO SCH ×3 (08:46→19:49)
[2021-04-25] MEDS: POTASSIUM CHLORIDE 20 MEQ/15 ML UDC PO SCH ×2 (08:46→19:43)
[2021-04-25] MEDS: ASCORBIC ACID 500 MG TAB PO SCH (08:46)
[2021-04-25] MEDS: FERROUS SULFATE 325 MG/7.4 ML UDP PO SCH (08:46)
[2021-04-25] MEDS: buPROPion HCl 100 MG TABLET PO SCH ×3 (08:46→19:42)
[2021-04-25] MEDS: CALCIUM CARBONATE 500 MG CHEWABLE TAB PO SCH ×2 (08:46→19:42)
[2021-04-25] MEDS: FUROSEMIDE 40 MG TAB PO SCH ×2 (08:58→17:47)
[2021-04-25] MEDS: AMIODARONE 200 MG TAB PO SCH (08:58)
[2021-04-25] MEDS: METOPROLOL TARTRATE 25 MG TAB PO SCH ×3 (08:58→19:41)
--- NOTE | 2021-04-25 11:03 | Cardiology Progress Note ---
Date of Service April 25, 2021 Assessment & Plan (1) Atrial fibrillation: (2) Atrial flutter: (3) Pneumonia due to COVID-19 virus: Plan: -Prolonged hospital stay, today's hospital day 55. He is status post tracheostomy and PEG tube placement. Patient follows with the undersigned from a cardiology perspective as an outpatient due to his history of hypertension and dyslipidemia. He developed paroxysmal atrial fibrillation/atrial flutter in the setting of ventilator dependent respiratory failure, ARDS from SARS-CoV-2 pneumonia. He also has a history of posttraumatic stress disorder and anxiety. I previously specifically discontinued his fluoxetine due to potential for interaction with amiodarone (additive QT prolonging effect). It appears this medication was resumed on 04/24/2021. EKG 04/24/2019 reviewed independently, sinus rhythm at 63 bpm, normal corrected QT interval 423 ms. We will continue both medications with caution. Atrial fibrillation/atrial flutter: Patient remains in sinus rhythm, without any recent breakthrough atrial arrhythmias, or bradycardia, pauses. Continue metoprolol 25 mg 3 times daily, amiodarone 200 mg daily. As previously noted, amiodarone is not an ideal agent with regards to potential for lung toxicity, however given the patient's significant tachycardia which was associated hypotension, rhythm control strategy felt to be indicated, and per my previous discussion with pulmonary medicine, benefits of amiodarone have been felt to outweigh the risks. INR at goal, 2.5, on Coumadin. Admission and Anticipated Discharge Date Admission Date: March 01, 2021 Subjective Patient seen in cardiology follow-up. He is in room 286-2, is no longer on isolation. He is on trach collar support, with oxygen supplementation at 10 L/min, and is awake and conversant. He has improved significantly since my most recent in person follow-up visit with him on 04/09/2021. Telemetry reveals sinus rhythm in the 70s. Physical Exam Physical Exam: Temp Pulse Resp BP Pulse Ox 37.0 C 83 20 129/72 100 04/25/21 06:44 04/25/21 08:55 04/25/21 06:44 04/25/21 08:55 04/25/21 06:44 Constitutional: no acute distress Respiratory: Mildly reduced breath sounds the bases Cardiovascular: RRR, no murmur, no edema Neurologic: Conversant, moves all 4 extremities Results & Data ([facility]) Vital Signs (Past 12 Hours) Vital Signs Temp Pulse Pulse Resp BP Pulse Ox 04/25/21 08:55 83 129/72 04/25/21 07:00 65 04/25/21 06:44 37.0 C 65 20 130/77 100 04/25/21 04:01 36.8 C 62 20 122/75 100 04/24/21 23:13 36.9 C 59 L 20 115/69 98 Laboratory Results Cardiac Enzymes 04/24/21 Range/Units 10:12 AST 21 (13-39) U/L Troponin I < 0.03 (0-0.04) ng/ml Coagulation 04/25/21 Range/Units 05:46 PT 23.5 H (9.0-12.0) Seconds CBC 04/25/21 Range/Units 05:46 WBC 10.35 (4.8-10.8) K/uL RBC 3.36 L (4.7-6.1) M/uL Hgb 9.9 L (14.0-18.0) g/dL Hct 32.1 L (42-52) % Plt Count 346 (130-400) K/uL Comprehensive Metabolic Panel 04/24/21 Range/Units 10:12 Sodium 135 L (136-145) mmol/L Potassium 4.2 (3.5-5.1) mmol/L Chloride 102 (98-107) mmol/L Carbon Dioxide 28 (21-32) mmol/L BUN 18 (6-23) mg/dl Creatinine 0.49 L (0.6-1.4) mg/dl Glucose 111 H (70-99(Fasting)) mg/dl Calcium 8.4 L (8.5-10.1) mg/dl AST 21 (13-39) U/L ALT 52 (7-52) U/L Alkaline Phosphatase 93 (34-104) U/L Total Protein 6.1 (6.0-8.3) gm/dl Albumin 3.0 L (3.4-5.0) gm/dl Intake and Output 04/24/21 04/25/21 04/25/21 22:59 06:59 14:59 Output Total 750 / 1700 550 / 1700 Balance -750 / -1700 -550 / -1700 Output: Urine 750 / 1700 550 / 1700 Other: Weight 98.9 kg Weight Measurement Method Built in [facility]
--- NOTE | 2021-04-25 15:04 | Hospitalist Progress Note ---
Date of Service April 25, 2021 Assessment & Plan (1) Pneumonia due to COVID-19 virus: (2) Acute hypoxemic respiratory failure: (3) Atrial fibrillation: Plan: (1) Acute hypoxemic respiratory failure: (2) ARDS (adult respiratory distress syndrome): (3) Pneumonia due to COVID-19 virus: 2/2 covid pneumonia, remains on vent 2/2 ARDS. s/p trach and PEG. Admitting CTA-no evidence of PE. Remdesivir discontinued by pulmonary service Completed dexamethasone 10 days course Baricitinib given for 6 days but discontinued due to acute DVTs (03/06/21) Had completed abx with cefepime and doxycycline for 7 days in Dec Received an additional 7 day course of Zosyn for serratia in the sputum-early Hong Leukocytosis now normal, remains afebrile. Repeat sputum culture sent growing serratia Zosyn restarted (04/11), Stopped (04/13). Repeat serratia in culture noted ID recs monitoring off abx Trach exchanged Advance diet, pull PEG if tolerating diet well, d/w auditing coder--> will need to to be in place for 4 to 6 weeks and evaluation at that point. Oxygen requirements has stayed stable around 10L via trach Repeat CXR in 4-6 weeks to ensure resolution. c/w vest therapy prn to help w/ mucociliary clearance. Will need OP eval for decanulation of trach, f/u Pulm as OP. #. Not feeling well - resolved Patient reports feeling tired/feverish feeling 04/24 morning, associated upper belly pain. Patient afebrile according to records. Urinalysis, CBC, CMP, troponin, magnesium, phosphorus, CXR, EKG, procalcitonin sent and reviewed. Also discussed the case with 2 other colleagues and no cause/problem could be appreciated at this point in time. All the labs fairly WNL with minimal elevation of WBC, EKG WNL, chest x-ray infact minimally better than the priors Blood culture sent, awaiting results, will continue to monitor with daily CBC and electrolytes as needed, patient slept well overnight with melatonin and wants melatonin Patient reports feeling better, no feeling of tiredness or loopy or feverish or belly pain. (4) Acute DVT (deep venous thrombosis): Plan: Deep venous thrombosis posterior tibial and peroneal veins; initially noted 03/05/21 Likely provoked by COVID-19 infection & baricitinib use No family history of blood clots per patient's , no personal history of cancer or prior blood clots, patient is non-smoker. warfarin started at 5 mg daily 04/21. INR 1.5 today. 04/23 d/w pharmacy --> INR 2.5, Lovenox stopped. Continue to monitor INR. (5) Atrial fibrillation: Plan: Sinus rhythm. Cont with amiodarone and metoprolol. Anticoagulation with Lovenox ---> warfarin REached out to [facility] 04/23 for reconfirmation of his home meds, now that he is more stable and awaiting placement. Appreciate any DC recs from [facility]? (6) Anxiety: Plan: has h/o PTSD per records Less anxious today. Plan: Lovenox --> warfarin Full Code Dispo-LTAC when bed available DC PEG tube when eating better 04/21 --> discussed with at bedside regarding pros and cons of different types of anticoagulation, given he has history of acoustic neuroma left ear and has balance problem, the decision was made to use anticoagulation that could be easily reversed (in case he falls) and hence it was decided to go with warfarin at this point. 04/23 and 04/24: Updated patient's at the bedside with the current status of the patient. Answered all her questions. She voiced understanding and was agreeable to the plan of care. Admission and Anticipated Discharge Date Admission Date: March 01, 2021 Subjective Patient seen and examined for acute respiratory failure secondary to pneumonia secondary to COVID-19 virus infection. Patient lying in bed, on 10 L via trach collar, NAD, no new acute events overnight, patient is feeling better and slept well overnight, wants melatonin. Patient reports eating okay/moving bowels okay and also has PEG tube. Patient denies any chills/chest pain/palpitations/belly pain/other review of symptoms. Physical Exam Physical Exam: GENERAL: Alert and oriented x3. NAD, on 10L via Oxymask. HEENT: No pallor, no icterus. Pupils equal, round and reactive to light. Oral mucosa moist. NECK: No JVD, no neck masses. Trach collar and trach tube in situ. HEART: S1 and S2 heard. Regular rate and rhythm. No murmur, no gallop. RESPIRATORY SYSTEM: Normal AP diameter. No accessory muscle use. No wheezing, occasional crackles. ABDOMEN: Soft, bowel sounds present, nontender, no distention. PEG tube in situ. CENTRAL NERVOUS SYSTEM: No facial droop. Speech is clear. Obeys simple commands. Moves extremities. EXTREMITIES: 1+ ble edema, no erythema seen. Results & Data Results & Data ([facility]) Vital Signs (Past 12 Hours) Vital Signs Temp Pulse Pulse Resp BP Pulse Ox 04/25/21 14:45 68 04/25/21 13:33 69 121/79 04/25/21 11:45 37.2 C 63 16 118/75 96 04/25/21 08:55 83 129/72 04/25/21 07:00 65 04/25/21 06:44 37.0 C 65 20 130/77 100 04/25/21 04:01 36.8 C 62 20 122/75 100
[2021-04-25] MEDS: WARFARIN SOD 5 MG TAB PO SCH (17:47)
[2021-04-25] MEDS: ADVANCED PROBIOTIC 1250 MG CAPSULE PO SCH (17:48)
[2021-04-25] MEDS: PEPTAMEN INTENSE VHP 1.0 CAL 1,000 ML BAG OG SCH (19:40)
[2021-04-25] MEDS ORDERED: MELATONIN 3 MG TAB PO ONE (19:47)
[2021-04-25] MEDS: MELATONIN 3 MG TAB PO SCH (19:49)
[2021-04-26] MEDS ORDERED: guaiFENesin 600 MG TABCR PO SCH (01:10)
[2021-04-26 07:39] LABS: INR 2.2 (0.9-1.1); Prothrombin Time 21.2 Seconds (9.0-12.0)
[2021-04-26 07:42] LABS: Chol HDL Ratio 6.3 (0-5)
[2021-04-26] MEDS: BENZONATATE 100 MG CAPSULE PO PRN ×2 (08:11→14:59)
[2021-04-26] MEDS: GABAPENTIN 250 MG/5 ML 470 ML BTL PO SCH ×3 (09:22→20:11)
[2021-04-26] MEDS: FERROUS SULFATE 325 MG/7.4 ML UDP PO SCH (09:25)
[2021-04-26] MEDS: FLUoxetine HCL 20 MG/5 ML 120ML BTL PO SCH (09:25)
[2021-04-26] MEDS: CALCIUM CARBONATE 500 MG CHEWABLE TAB PO SCH ×2 (09:26→20:05)
[2021-04-26] MEDS: POTASSIUM CHLORIDE 20 MEQ/15 ML UDC PO SCH ×2 (09:26→20:04)
[2021-04-26] MEDS: MULTI VIT W/MINERALS LIQUID 15 ML UDP PO SCH (09:26)
[2021-04-26] MEDS: buPROPion HCl 100 MG TABLET PO SCH ×3 (09:26→20:05)
[2021-04-26] MEDS: METOPROLOL TARTRATE 25 MG TAB PO SCH ×3 (09:27→20:05)
[2021-04-26] MEDS: AMIODARONE 200 MG TAB PO SCH (09:27)
[2021-04-26] MEDS: LANSOPRAZOLE 30 MG SOLTAB PO SCH ×2 (09:27→20:04)
[2021-04-26] MEDS: ASCORBIC ACID 500 MG TAB PO SCH (09:27)
[2021-04-26] MEDS: ADVANCED PROBIOTIC 1250 MG CAPSULE PO SCH (09:27)
[2021-04-26] MEDS: INSULIN HUMAN REGULAR SC SCH ×4 (09:28→20:18)
[2021-04-26] MEDS: FUROSEMIDE 40 MG TAB PO SCH ×2 (09:28→17:04)
[2021-04-26] MEDS: guaiFENesin SUGAR FREE 200 MG/10 ML UDC PO PRN (12:22)
--- NOTE | 2021-04-26 12:43 | Hospitalist Progress Note ---
Date of Service April 26, 2021 Assessment & Plan (1) Pneumonia due to COVID-19 virus: (2) Acute hypoxemic respiratory failure: (3) Atrial fibrillation: Plan: (1) Acute hypoxemic respiratory failure: (2) ARDS (adult respiratory distress syndrome): (3) Pneumonia due to COVID-19 virus: 2/2 covid pneumonia, remains on vent 2/2 ARDS. s/p trach and PEG. Admitting CTA-no evidence of PE. Remdesivir discontinued by pulmonary service Completed dexamethasone 10 days course Baricitinib given for 6 days but discontinued due to acute DVTs (03/06/21) Had completed abx with cefepime and doxycycline for 7 days in Dec Received an additional 7 day course of Zosyn for serratia in the sputum-early Hong Leukocytosis now normal, remains afebrile. Repeat sputum culture sent growing serratia Zosyn restarted (04/11), Stopped (04/13). Repeat serratia in culture noted ID recs monitoring off abx Trach exchanged Advance diet, pull PEG if tolerating diet well, d/w child day care provider--> will need to to be in place for 4 to 6 weeks and evaluation at that point. Oxygen requirements has stayed stable around 10L via trach Repeat CXR in 4-6 weeks to ensure resolution. c/w vest therapy prn to help w/ mucociliary clearance. Will need OP eval for decannulation of trach, f/u Pulm as OP. #. Not feeling well - resolved Patient reports feeling tired/feverish feeling 04/24 morning, associated upper belly pain. Patient afebrile according to records. Urinalysis, CBC, CMP, troponin, magnesium, phosphorus, CXR, EKG, procalcitonin sent and reviewed. Also discussed the case with 2 other colleagues and no cause/problem could be appreciated at this point in time. All the labs fairly WNL with minimal elevation of WBC, EKG WNL, chest x-ray infact minimally better than the priors Blood culture sent, no growth after 48 hours,, will continue to monitor with daily CBC and electrolytes as needed, Patient reports feeling better, no feeling of tiredness or loopy or feverish or belly pain. (4) Acute DVT (deep venous thrombosis): Plan: Deep venous thrombosis posterior tibial and peroneal veins; initially noted 01/14 Likely provoked by COVID-19 infection & baricitinib use No family history of blood clots per patient's , no personal history of cancer or prior blood clots, patient is non-smoker. warfarin started at 5 mg daily 04/21. INR 2.2 today. 04/23 d/w pharmacy. Off of Lovenox. Continue to monitor INR. (5) Atrial fibrillation: Plan: Sinus rhythm. Cont with amiodarone and metoprolol. Anticoagulation with Lovenox ---> warfarin REached out to [facility] 04/23 for reconfirmation of his home meds, now that he is more stable and awaiting placement --> continue with metoprolol 25 mg 3 times daily, amiodarone 200 mg daily. Patient will need outpatient cardiology follow-up in a month or so upon DC. (6) Anxiety: Plan: has h/o PTSD per records Less anxious today. Plan: Lovenox --> warfarin Full Code Dispo-LTAC when bed available, DC PEG tube when eating better 04/21 --> discussed with at bedside regarding pros and cons of different types of anticoagulation, given he has history of acoustic neuroma left ear and has balance problem, the decision was made to use anticoagulation that could be easily reversed (in case he falls) and hence it was decided to go with warfarin at this point. 04/23 and 04/24: Updated patient's at the bedside with the current status of the patient. Answered all her questions. She voiced understanding and was agreeable to the plan of care. Admission and Anticipated Discharge Date Admission Date: March 01, 2021 Subjective Patient seen and examined for acute respiratory failure secondary to pneumonia secondary to COVID-19 virus infection. Patient lying in bed, on 10 L via trach collar, NAD, no new acute events overnight, patient feels doing better. Patient had loose bowel movements yesterday and C. difficile has been sent, await results. Patient reports improvement in his diarrheal movements today. Patient reports eating okay okay and also has PEG tube. Patient denies any chills/chest pain/palpitations/belly pain/other review of symptoms. Physical Exam Physical Exam: GENERAL: Alert and oriented x3. NAD, on 10L via Oxymask. HEENT: No pallor, no icterus. Pupils equal, round and reactive to light. Oral mucosa moist. NECK: No JVD, no neck masses. Trach collar and trach tube in situ. HEART: S1 and S2 heard. Regular rate and rhythm. No murmur, no gallop. RESPIRATORY SYSTEM: Normal AP diameter. No accessory muscle use. No wheezing, occasional crackles. ABDOMEN: Soft, bowel sounds present, nontender, no distention. PEG tube in situ. CENTRAL NERVOUS SYSTEM: No facial droop. Speech is clear. Obeys simple commands. Moves extremities. EXTREMITIES: 1+ ble edema, no erythema seen. Results & Data Results & Data ([facility]) Vital Signs (Past 12 Hours) Vital Signs Temp Pulse Pulse Resp BP Pulse Ox 04/26/21 11:46 36.5 C 82 18 137/82 95 04/26/21 07:43 70 04/26/21 07:19 37.0 C 60 16 122/78 96 04/26/21 03:45 37.1 C 64 20 129/75 93
[2021-04-26] MEDS: WARFARIN SOD 5 MG TAB PO SCH (17:04)
[2021-04-26] MEDS: MELATONIN 3 MG TAB PO SCH (20:12)
[2021-04-26] MEDS: PEPTAMEN INTENSE VHP 1.0 CAL 1,000 ML BAG OG SCH (20:15)
[2021-04-27 08:50] LABS: Hematocrit (blood only) 35.7 % (42-52); Hemoglobin 11.1 g/dL (14.0-18.0); Mean Corpuscular Hemoglobin 29.8 pg (25-34); Mean Corpuscular Hgb Conc 31.1 g/dL (32-36); Mean Platelet Volume 9.7 fL (7.4-10.4); Platelet Count 427 K/uL (130-400); RDW Coefficient of Variation 18.4 % (11.5-14.5); RDW Standard Deviation 64.2 fL (36.4-46.3); Red Blood Count 3.72 M/uL (4.7-6.1); White Blood Count 12.08 K/uL (4.8-10.8)
[2021-04-27 08:51] LABS: INR 2.5 (0.9-1.1); Prothrombin Time 23.6 Seconds (9.0-12.0)
[2021-04-27 09:13] LABS: Calcium 8.5 mg/dl (8.5-10.1); Creatinine Clr Calc Pharmacy 164.8 ml/min; Est GFR (African American) 128.5 ml/min; Est GFR (Non-African American) 110.8 ml/min; Potassium 3.9 mmol/L (3.5-5.1)
[2021-04-27] MEDS: BENZONATATE 100 MG CAPSULE PO PRN ×2 (09:13→19:16)
[2021-04-27] MEDS: AMIODARONE 200 MG TAB PO SCH (09:19)
[2021-04-27] MEDS: buPROPion HCl 100 MG TABLET PO SCH ×3 (09:20→20:55)
[2021-04-27] MEDS: ASCORBIC ACID 500 MG TAB PO SCH (09:20)
[2021-04-27] MEDS: CALCIUM CARBONATE 500 MG CHEWABLE TAB PO SCH ×2 (09:21→20:55)
[2021-04-27] MEDS: FERROUS SULFATE 325 MG/7.4 ML UDP PO SCH (09:22)
[2021-04-27] MEDS: FLUoxetine HCL 20 MG/5 ML 120ML BTL PO SCH (09:22)
[2021-04-27] MEDS: ADVANCED PROBIOTIC 1250 MG CAPSULE PO SCH (09:23)
[2021-04-27] MEDS: FUROSEMIDE 40 MG TAB PO SCH ×2 (09:23→17:40)
[2021-04-27] MEDS: POTASSIUM CHLORIDE 20 MEQ/15 ML UDC PO SCH ×2 (09:24→20:59)
[2021-04-27] MEDS: MULTI VIT W/MINERALS LIQUID 15 ML UDP PO SCH (09:24)
[2021-04-27] MEDS: METOPROLOL TARTRATE 25 MG TAB PO SCH ×3 (09:24→20:56)
[2021-04-27] MEDS: LANSOPRAZOLE 30 MG SOLTAB PO SCH ×2 (09:24→20:56)
[2021-04-27] MEDS: GABAPENTIN 250 MG/5 ML 470 ML BTL PO SCH ×2 (09:27→14:24)
[2021-04-27] MEDS: INSULIN HUMAN REGULAR SC SCH ×4 (09:31→20:59)
--- NOTE | 2021-04-27 13:20 | Hospitalist Progress Note ---
Date of Service April 27, 2021 Assessment & Plan (1) Pneumonia due to COVID-19 virus: (2) Acute hypoxemic respiratory failure: (3) Atrial fibrillation: Plan: (1) Acute hypoxemic respiratory failure: (2) ARDS (adult respiratory distress syndrome): (3) Pneumonia due to COVID-19 virus: 2/2 covid pneumonia, remains on vent 2/2 ARDS. s/p trach and PEG. Admitting CTA-no evidence of PE. Remdesivir discontinued by pulmonary service Completed dexamethasone 10 days course Baricitinib given for 6 days but discontinued due to acute DVTs (03/06/21) Had completed abx with cefepime and doxycycline for 7 days in Dec Received an additional 7 day course of Zosyn for serratia in the sputum-early Hong Leukocytosis now normal, remains afebrile. Repeat sputum culture sent growing serratia Zosyn restarted (04/11), Stopped (04/13). Repeat serratia in culture noted ID recs monitoring off abx Trach exchanged Advance diet, pull PEG if tolerating diet well, d/w human resources recruiter--> will need to to be in place for 4 to 6 weeks and evaluation at that point. Oxygen requirements has stayed stable around 10L via trach Repeat CXR in 4-6 weeks to ensure resolution. c/w vest therapy prn to help w/ mucociliary clearance. Will need OP eval for decannulation of trach, f/u Pulm as OP. #. Not feeling well - resolved Patient reports feeling tired/feverish feeling 04/24 morning, associated upper belly pain. Patient afebrile according to records. Urinalysis, CBC, CMP, troponin, magnesium, phosphorus, CXR, EKG, procalcitonin sent and reviewed. Also discussed the case with 2 other colleagues and no cause/problem could be appreciated at this point in time. All the labs fairly WNL with minimal elevation of WBC, EKG WNL, chest x-ray infact minimally better than the priors Blood culture sent, no growth after 48 hours, will continue to monitor with daily CBC and electrolytes as needed, Patient reports feeling better, no feeling of tiredness or loopy or feverish or belly pain. (4) Acute DVT (deep venous thrombosis): Plan: Deep venous thrombosis posterior tibial and peroneal veins; initially noted 02/24 Likely provoked by COVID-19 infection & baricitinib use No family history of blood clots per patient's , no personal history of cancer or prior blood clots, patient is non-smoker. warfarin started at 5 mg daily 04/21. INR 2.5 today. 04/23 d/w pharmacy. Off of Lovenox. Continue to monitor INR. (5) Atrial fibrillation: Plan: Sinus rhythm. Cont with amiodarone and metoprolol. Anticoagulation with Lovenox ---> warfarin REached out to [facility] 04/23 for reconfirmation of his home meds, now that he is more stable and awaiting placement --> continue with metoprolol 25 mg 3 times daily, amiodarone 200 mg daily. Patient will need outpatient cardiology follow-up in a month or so upon DC. (6) Anxiety: Plan: has h/o PTSD per records Less anxious today. Plan: Lovenox --> warfarin Full Code Dispo-LTAC when bed available, DC PEG tube when eating better 04/21 --> discussed with at bedside regarding pros and cons of different types of anticoagulation, given he has history of acoustic neuroma left ear and has balance problem, the decision was made to use anticoagulation that could be easily reversed (in case he falls) and hence it was decided to go with warfarin at this point. 04/23 and 04/24: Updated patient's at the bedside with the current status of the patient. Answered all her questions. She voiced understanding and was agreeable to the plan of care. Admission and Anticipated Discharge Date Admission Date: March 01, 2021 Subjective Patient seen and examined for acute respiratory failure secondary to pneumonia secondary to COVID-19 virus infection. Patient lying in bed, on 10 L via trach collar, NAD, no new acute events overnight, patient feels doing better. Pt reports no further loose bowels. Patient reports improvement in his diarrheal movements today. Patient reports eating okay and also has PEG tube. Patient denies any chills/chest pain/palpitations/belly pain/other review of symptoms. Physical Exam Physical Exam: GENERAL: Alert and oriented x3. NAD, on 10L via Oxymask. HEENT: No pallor, no icterus. Pupils equal, round and reactive to light. Oral mucosa moist. NECK: No JVD, no neck masses. Trach collar and trach tube in situ. HEART: S1 and S2 heard. Regular rate and rhythm. No murmur, no gallop. RESPIRATORY SYSTEM: Normal AP diameter. No accessory muscle use. No wheezing, occasional crackles. ABDOMEN: Soft, bowel sounds present, nontender, no distention. PEG tube in situ. CENTRAL NERVOUS SYSTEM: No facial droop. Speech is clear. Obeys simple commands. Moves extremities. EXTREMITIES: 1+ ble edema, no erythema seen. Knee high stocking in place. Results & Data Results & Data ([facility]) Vital Signs (Past 12 Hours) Vital Signs Temp Pulse Pulse Resp BP Pulse Ox 04/27/21 12:00 37.0 C 70 20 127/78 99 04/27/21 07:00 36.7 C 70 20 129/76 98 04/27/21 05:36 98 04/27/21 02:53 37.0 C 66 20 109/64 98 04/27/21 01:35 60
[2021-04-27] MEDS: WARFARIN SOD 5 MG TAB PO SCH (16:21)
[2021-04-27] MEDS: DOCUSATE SODIUM 100 MG CAP PO PRN (18:39)
[2021-04-27] MEDS: MELATONIN 3 MG TAB PO SCH (20:58)
[2021-04-27] MEDS ORDERED: GABAPENTIN 400 MG CAP PO SCH (21:00)
[2021-04-27] MEDS: TUBE FEEDING WATER FLUSH GT SCH (21:00)
[2021-04-27] MEDS: GABAPENTIN 400 MG CAP PO SCH (22:12)
[2021-04-28] MEDS: GABAPENTIN 400 MG CAP PO SCH ×3 (07:47→20:11)
[2021-04-28] MEDS: ASCORBIC ACID 500 MG TAB PO SCH (07:48)
[2021-04-28] MEDS: CALCIUM CARBONATE 500 MG CHEWABLE TAB PO SCH ×2 (07:48→20:13)
[2021-04-28] MEDS: ADVANCED PROBIOTIC 1250 MG CAPSULE PO SCH (07:49)
[2021-04-28] MEDS: LANSOPRAZOLE 30 MG SOLTAB PO SCH ×2 (07:49→20:10)
[2021-04-28] MEDS: buPROPion HCl 100 MG TABLET PO SCH ×3 (07:49→20:11)
[2021-04-28] MEDS: AMIODARONE 200 MG TAB PO SCH (07:49)
[2021-04-28] MEDS: FUROSEMIDE 40 MG TAB PO SCH ×2 (07:49→16:18)
[2021-04-28] MEDS: METOPROLOL TARTRATE 25 MG TAB PO SCH ×3 (07:49→20:12)
[2021-04-28] MEDS: MULTI VIT W/MINERALS LIQUID 15 ML UDP PO SCH (07:50)
[2021-04-28] MEDS: POTASSIUM CHLORIDE 20 MEQ/15 ML UDC PO SCH ×2 (07:50→20:11)
[2021-04-28] MEDS: FERROUS SULFATE 325 MG/7.4 ML UDP PO SCH (07:50)
[2021-04-28] MEDS: FLUoxetine HCL 20 MG/5 ML 120ML BTL PO SCH (07:51)
[2021-04-28] MEDS: TUBE FEEDING WATER FLUSH GT SCH ×3 (07:58→20:18)
[2021-04-28] MEDS: INSULIN HUMAN REGULAR SC SCH ×4 (07:58→21:17)
[2021-04-28 08:07] LABS: INR 2.5 (0.9-1.1); Prothrombin Time 23.6 Seconds (9.0-12.0)
--- NOTE | 2021-04-28 10:17 | Hospitalist Progress Note ---
Date of Service April 28, 2021 Assessment & Plan (1) Pneumonia due to COVID-19 virus: (2) Acute hypoxemic respiratory failure: (3) Atrial fibrillation: Plan: (1) Acute hypoxemic respiratory failure: (2) ARDS (adult respiratory distress syndrome): (3) Pneumonia due to COVID-19 virus: 2/2 covid pneumonia, remains on vent 2/2 ARDS. s/p trach and PEG. Admitting CTA-no evidence of PE. Remdesivir discontinued by pulmonary service Completed dexamethasone 10 days course Baricitinib given for 6 days but discontinued due to acute DVTs (03/06/21) Had completed abx with cefepime and doxycycline for 7 days in Dec Received an additional 7 day course of Zosyn for serratia in the sputum-early Hong Leukocytosis resolved, remains afebrile. Repeat sputum culture sent growing serratia Zosyn restarted (04/11), Stopped (04/13). Repeat serratia in culture noted ID recs monitoring off abx Trach exchanged Tolerating diet well Plan to remove PEG if tolerating diet well after eval in about 4-6 weeks Currently on trach collar at 8l/min Repeat CXR in 4-6 weeks to ensure resolution. Continue with vest therapy prn to help w/ mucociliary clearance. Will need OP eval for decannulation of trach, f/u Pulm as OP. (4) Acute DVT (deep venous thrombosis): Plan: Deep venous thrombosis posterior tibial and peroneal veins; initially noted 03/05/21 Likely provoked by COVID-19 infection & baricitinib use No family history of blood clots per patient's , no personal history of cancer or prior blood clots, patient is non-smoker. Was initially on lovenox, now on warfarin started at 5 mg daily 04/21. INR 2.5 today. 04/23 d/w pharmacy. Monitor INR Needs f/u anticoagulation clinic (5) Atrial fibrillation: Plan: Sinus rhythm. Cont with amiodarone and metoprolol. Anticoagulation with Lovenox ---> warfarin Previous Provider discussed with Cards 04/23 for reconfirmation of his home meds, now that he is more stable and awaiting placement --> continue with metoprolol 25 mg 3 times daily, amiodarone 200 mg daily. Patient will need outpatient cardiology follow-up in a month or so upon DC. (6) Anxiety: Plan: has h/o PTSD per records Currently on fluoxetin which has been resumed EKG recheck to monitor QTc today is 429 Plan: Full Code Dispo-LTAC when bed available.CM working on this Admission and Anticipated Discharge Date Admission Date: March 01, 2021 Subjective Patient seen and examined. Reports occasional cough. Currently on trach collar with oxygen at 8 L/min. PEG tube feeding nocturnal, discontinued yesterday. Patient tolerating p.o. diet well per Patient and RN. Denies any chest pain, nausea, vomiting, diarrhea, abdominal pain Denies dysuria, frequency, urgency Denies fevers or chills Physical Exam Constitutional: + well hydrated; no acute distress Eyes: PERRL, conjunctivae normal, anicteric sclerae ENMT: external ear and nose normal, oropharynx normal Neck: Trach collar in situ 8 L/min Respiratory: On trach collar, diminished breath sounds, scattered basilar crackles Cardiovascular: Rate/Rhythm: regular rate and regular rhythm S1-S2 Gastrointestinal (Abdomen): normal bowel sounds, soft, nontender, no hepatosplenomegaly PEG tube in situ Musculoskeletal: No pedal edema Neurologic: PERRL, EOMI, accommodation nl, no face palsy, no dysarthria Psychiatric: A+Ox3, euthymic affect Results & Data Results & Data ([facility]) Vital Signs (Past 12 Hours) Vital Signs Temp Pulse Pulse Resp BP Pulse Ox 04/28/21 09:35 60 04/28/21 07:32 36.9 C 62 20 123/63 96 04/28/21 04:21 36.9 C 62 18 104/62 92 04/28/21 00:00 36.8 C 70 18 110/61 92 04/27/21 23:39 58 L 04/27/21 23:36 18 94 Laboratory Results Abnormal lab results 04/27/21 04/27/21 04/27/21 Range/Units 11:22 16:49 20:42 PT (9.0-12.0) Seconds INR (0.9-1.1) POC Glucose 118 H 108 H 116 H (70-99) mg/dl 04/28/21 04/28/21 Range/Units 07:30 07:39 PT 23.6 H (9.0-12.0) Seconds INR 2.5 H (0.9-1.1) POC Glucose 103 H (70-99) mg/dl
--- NOTE | 2021-04-28 11:58 | Electrocardiogram Report ---
Test Reason : Blood Pressure : / mmHG Vent. Rate : 073 BPM Atrial Rate : 073 BPM P-R Int : 166 ms QRS Dur : 092 ms QT Int : 390 ms P-R-T Axes : 020 019 043 degrees QTc Int : 429 ms Normal sinus rhythm Normal ECG When compared with ECG of 24-APR-2021 09:37, No significant change was found Confirmed by Bowen Woods ([id number]) on 04/28/2021 11:58:23 AM Referred By: REFERRED SELF Confirmed By:Bowen Woods
[2021-04-28] MEDS: BENZONATATE 100 MG CAPSULE PO PRN ×2 (11:59→20:17)
[2021-04-28] MEDS: WARFARIN SOD 5 MG TAB PO SCH (16:17)
[2021-04-28] MEDS: MELATONIN 3 MG TAB PO SCH (20:17)
[2021-04-29 07:53] LABS: INR 3.2 (0.9-1.1); Prothrombin Time 29.7 Seconds (9.0-12.0)
[2021-04-29 08:08] LABS: BUN Creatinine Ratio 33.3 (10-20); Calcium 8.5 mg/dl (8.5-10.1); Creatinine Clr Calc Pharmacy 166.7 ml/min; Est GFR (African American) 128.5 ml/min; Est GFR (Non-African American) 110.8 ml/min; Potassium 3.5 mmol/L (3.5-5.1)
[2021-04-29] MEDS: AMIODARONE 200 MG TAB PO SCH (08:08)
[2021-04-29] MEDS: GABAPENTIN 400 MG CAP PO SCH ×3 (08:08→21:28)
[2021-04-29] MEDS: ASCORBIC ACID 500 MG TAB PO SCH (08:08)
[2021-04-29] MEDS: FUROSEMIDE 40 MG TAB PO SCH ×2 (08:08→16:27)
[2021-04-29] MEDS: METOPROLOL TARTRATE 25 MG TAB PO SCH ×3 (08:09→21:27)
[2021-04-29] MEDS: buPROPion HCl 100 MG TABLET PO SCH ×3 (08:09→21:28)
[2021-04-29] MEDS: ADVANCED PROBIOTIC 1250 MG CAPSULE PO SCH (08:09)
[2021-04-29] MEDS: LANSOPRAZOLE 30 MG SOLTAB PO SCH ×2 (08:09→21:32)
[2021-04-29] MEDS: FERROUS SULFATE 325 MG/7.4 ML UDP PO SCH (08:10)
[2021-04-29] MEDS: FLUoxetine HCL 20 MG/5 ML 120ML BTL PO SCH (08:10)
[2021-04-29] MEDS: POTASSIUM CHLORIDE 20 MEQ/15 ML UDC PO SCH ×2 (08:11→21:29)
[2021-04-29] MEDS: MULTI VIT W/MINERALS LIQUID 15 ML UDP PO SCH (08:11)
[2021-04-29] MEDS: TUBE FEEDING WATER FLUSH GT SCH ×3 (08:12→21:38)
[2021-04-29] MEDS: INSULIN HUMAN REGULAR SC SCH ×4 (08:13→21:26)
--- NOTE | 2021-04-29 11:38 | Hospitalist Progress Note ---
Date of Service April 29, 2021 Assessment & Plan (1) Pneumonia due to COVID-19 virus: (2) Acute hypoxemic respiratory failure: (3) Atrial fibrillation: Plan: (1) Acute hypoxemic respiratory failure: (2) ARDS (adult respiratory distress syndrome): (3) Pneumonia due to COVID-19 virus: 2/2 covid pneumonia, remains on vent 2/2 ARDS. s/p trach and PEG. Admitting CTA-no evidence of PE. Remdesivir discontinued by pulmonary service Completed dexamethasone 10 days course Baricitinib given for 6 days but discontinued due to acute DVTs (03/06/21) Had completed abx with cefepime and doxycycline for 7 days in Dec Received an additional 7 day course of Zosyn for serratia in the sputum-early Hong Leukocytosis resolved, remains afebrile. Repeat sputum culture sent growing serratia Zosyn restarted (04/11), Stopped (04/13). Repeat serratia in culture noted ID recs monitoring off abx Trach exchanged Tolerating diet well Plan to remove PEG if tolerating diet well after eval in about 4-6 weeks Currently on trach collar at 8l/min Repeat CXR in 4-6 weeks to ensure resolution. Continue with vest therapy prn to help w/ mucociliary clearance. Will need OP eval for decannulation of trach, f/u Pulm as OP. (4) Acute DVT (deep venous thrombosis): Plan: Deep venous thrombosis posterior tibial and peroneal veins; initially noted 03/05/21 Likely provoked by COVID-19 infection & baricitinib use No family history of blood clots per patient's , no personal history of cancer or prior blood clots, patient is non-smoker. Was initially on lovenox, now on warfarin started at 5 mg daily 04/21. INR is 3.2 today.Hold warfarin for today and monitor Monitor INR Needs f/u anticoagulation clinic (5) Atrial fibrillation: Plan: Sinus rhythm. Cont with amiodarone and metoprolol. Anticoagulation with Lovenox ---> warfarin Previous Provider discussed with Cards 04/23 for reconfirmation of his home meds, now that he is more stable and awaiting placement --> continue with metoprolol 25 mg 3 times daily, amiodarone 200 mg daily. Patient will need outpatient cardiology follow-up in a month or so upon DC. (6) Anxiety: Plan: has h/o PTSD per records Currently on fluoxetin which has been resumed Plan: Full Code Dispo-LTAC when bed available.CM working on this Admission and Anticipated Discharge Date Admission Date: March 01, 2021 Subjective Patient seen and examined. Reports occasional cough, unchanged Currently on trach collar. Denies any chest pain, nausea, vomiting, diarrhea, abdominal pain Denies dysuria, frequency, urgency Denies fevers or chills Physical Exam Constitutional: + well hydrated; no acute distress Eyes: PERRL, conjunctivae normal, anicteric sclerae ENMT: external ear and nose normal, oropharynx normal Respiratory: On trach collar Diminished breath sounds Cardiovascular: Rate/Rhythm: regular rate and regular rhythm S1 S2 Gastrointestinal (Abdomen): normal bowel sounds, soft, nontender, no hepatosplenomegaly Musculoskeletal: no cyanosis or clubbing, extremities motor strength 5/5 Neurologic: PERRL, EOMI, accommodation nl, no face palsy, no dysarthria Psychiatric: A+Ox3, euthymic affect Results & Data Results & Data ([facility]) Vital Signs (Past 12 Hours) Vital Signs Temp Pulse Pulse Resp BP Pulse Ox 04/29/21 07:36 36.9 C 64 18 112/69 98 04/29/21 07:17 59 L 04/29/21 03:30 36.5 C 62 20 117/71 94 Laboratory Results Abnormal lab results 04/28/21 04/28/21 04/29/21 Range/Units 11:36 16:42 07:25 PT 29.7 H (9.0-12.0) Seconds INR 3.2 H (0.9-1.1) Sodium (136-145) mmol/L BUN/Creatinine Ratio (10-20) POC Glucose 141 H 69 L* (70-99) mg/dl 04/29/21 Range/Units 07:25 PT (9.0-12.0) Seconds INR (0.9-1.1) Sodium 135 L (136-145) mmol/L BUN/Creatinine Ratio 33.3 H (10-20) POC Glucose (70-99) mg/dl
[2021-04-29] MEDS: ACETAMINOPHEN SUSP 325 MG/10.15 ML UDC NG PRN (16:27)
[2021-04-29] MEDS ORDERED: LORATADINE 10 MG TAB PO ONE (17:10)
[2021-04-29] MEDS: BENZONATATE 100 MG CAPSULE PO PRN (21:38)
[2021-04-29] MEDS: MELATONIN 3 MG TAB PO SCH (21:38)
[2021-04-29] MEDS: guaiFENesin SUGAR FREE 200 MG/10 ML UDC PO PRN (23:13)
[2021-04-30 07:02] LABS: INR 2.4 (0.9-1.1)
[2021-04-30] MEDS: INSULIN HUMAN REGULAR SC SCH ×4 (08:10→20:37)
[2021-04-30] MEDS: FLUoxetine HCL 20 MG/5 ML 120ML BTL PO SCH (08:13)
[2021-04-30] MEDS: POTASSIUM CHLORIDE 20 MEQ/15 ML UDC PO SCH ×2 (08:13→20:14)
[2021-04-30] MEDS: GABAPENTIN 400 MG CAP PO SCH ×3 (08:14→20:12)
[2021-04-30] MEDS: LANSOPRAZOLE 30 MG SOLTAB PO SCH ×2 (08:14→20:13)
[2021-04-30] MEDS: FERROUS SULFATE 325 MG/7.4 ML UDP PO SCH (08:15)
[2021-04-30] MEDS: ASCORBIC ACID 500 MG TAB PO SCH (08:15)
[2021-04-30] MEDS: METOPROLOL TARTRATE 25 MG TAB PO SCH ×3 (08:15→20:13)
[2021-04-30] MEDS: CYANOCOBALAMIN 1000 MCG/ML VIAL IM SCH (08:15)
[2021-04-30] MEDS: buPROPion HCl 100 MG TABLET PO SCH ×3 (08:15→20:12)
[2021-04-30] MEDS: TUBE FEEDING WATER FLUSH GT SCH ×3 (08:16→20:14)
[2021-04-30] MEDS: ADVANCED PROBIOTIC 1250 MG CAPSULE PO SCH (08:16)
[2021-04-30] MEDS: MULTI VIT W/MINERALS LIQUID 15 ML UDP PO SCH (08:16)
[2021-04-30] MEDS: LORATADINE 10 MG TAB PO SCH (08:17)
[2021-04-30] MEDS: FUROSEMIDE 40 MG TAB PO SCH ×2 (08:17→16:11)
[2021-04-30] MEDS: AMIODARONE 200 MG TAB PO SCH (08:18)
--- NOTE | 2021-04-30 11:16 | Hospitalist Progress Note ---
Date of Service April 30, 2021 Assessment & Plan (1) Pneumonia due to COVID-19 virus: (2) Acute hypoxemic respiratory failure: (3) Atrial fibrillation: Plan: (1) Acute hypoxemic respiratory failure: (2) ARDS (adult respiratory distress syndrome): (3) Pneumonia due to COVID-19 virus: 2/2 covid pneumonia, remains on vent 2/2 ARDS. s/p trach and PEG. Admitting CTA-no evidence of PE. Remdesivir discontinued by pulmonary service Completed dexamethasone 10 days course Baricitinib given for 6 days but discontinued due to acute DVTs (03/06/21) Had completed abx with cefepime and doxycycline for 7 days in Dec Received an additional 7 day course of Zosyn for serratia in the sputum-early Hong Leukocytosis resolved, remains afebrile. Repeat sputum culture sent growing serratia Zosyn restarted (04/11), Stopped (04/13). Repeat serratia in culture noted ID recs monitoring off abx Trach exchanged Tolerating diet well Plan to remove PEG if tolerating diet well after eval in about 4-6 weeks (end of the month) Currently on trach collar at 8l/min Repeat CXR in 4-6 weeks to ensure resolution. Continue with vest therapy prn to help w/ mucociliary clearance. Will need OP eval for decannulation of trach, f/u Pulm as OP. (4) Acute DVT (deep venous thrombosis): Plan: Deep venous thrombosis posterior tibial and peroneal veins; initially noted 03/05/21 Likely provoked by COVID-19 infection & baricitinib use No family history of blood clots per patient's , no personal history of cancer or prior blood clots, patient is non-smoker. Was initially on lovenox, now on warfarin started at 5 mg daily 04/21. INR is 2.4 today. Continue warfarin Monitor INR Needs f/u anticoagulation clinic (5) Atrial fibrillation: Plan: Sinus rhythm. Cont with amiodarone and metoprolol. Anticoagulation with Lovenox ---> warfarin Previous Provider discussed with Cards 04/23 for reconfirmation of his home meds, now that he is more stable and awaiting placement --> continue with metoprolol 25 mg 3 times daily, amiodarone 200 mg daily. Patient will need outpatient cardiology follow-up in a month or so upon DC. (6) Anxiety: Plan: has h/o PTSD per records Currently on fluoxetin Plan: Full Code Dispo-LTAC when bed available.CM working on this Admission and Anticipated Discharge Date Admission Date: March 01, 2021 Subjective Patient seen and examined. Reports occasional cough, unchanged Reported some cough bouts yesterday Reported some left ear ache yesterday evening associated with left throat ache. Was started on loratadine. Got tylenol Patient reports ear ache is significantly improved. No throat ache today Currently on trach collar. Denies any chest pain, nausea, vomiting, diarrhea, abdominal pain Denies dysuria, frequency, urgency Denies fevers or chills Physical Exam Constitutional: + well hydrated; no acute distress Eyes: PERRL, conjunctivae normal, anicteric sclerae ENMT: external ear and nose normal, oropharynx normal Left ear TM not fully visualized due to ear wax No tragal tenderness Respiratory: On trach collar Diminished breath sounds Cardiovascular: Rate/Rhythm: regular rate and regular rhythm S1 S2 Gastrointestinal (Abdomen): normal bowel sounds, soft, nontender, no hepatosplenomegaly Musculoskeletal: No pedal edema Neurologic: PERRL, EOMI, accommodation nl, no face palsy, no dysarthria Psychiatric: A+Ox3, euthymic affect Results & Data Results & Data ([facility]) Vital Signs (Past 12 Hours) Vital Signs Temp Pulse Pulse Resp BP Pulse Ox 04/30/21 11:03 36.7 C 68 20 110/67 91 04/30/21 07:28 36.9 C 63 20 117/72 95 04/30/21 03:40 36.8 C 60 20 111/74 96 04/30/21 00:48 65 Laboratory Results Abnormal lab results 04/29/21 04/30/21 Range/Units 19:35 06:25 PT 23.0 H (9.0-12.0) Seconds INR 2.4 H (0.9-1.1) POC Glucose 120 H (70-99) mg/dl
[2021-04-30] MEDS: WARFARIN SOD 5 MG TAB PO SCH (16:12)
[2021-04-30] MEDS: guaiFENesin SUGAR FREE 200 MG/10 ML UDC PO PRN (20:12)
[2021-04-30] MEDS: MELATONIN 3 MG TAB PO SCH (20:16)
[2021-05-01 06:13] LABS: INR 2.3 (0.9-1.1)
[2021-05-01] MEDS: INSULIN HUMAN REGULAR SC SCH ×4 (09:08→22:43)
[2021-05-01] MEDS: buPROPion HCl 100 MG TABLET PO SCH ×3 (09:12→21:52)
[2021-05-01] MEDS: FERROUS SULFATE 325 MG/7.4 ML UDP PO SCH (09:12)
[2021-05-01] MEDS: POTASSIUM CHLORIDE 20 MEQ/15 ML UDC PO SCH ×2 (09:13→21:52)
[2021-05-01] MEDS: METOPROLOL TARTRATE 25 MG TAB PO SCH ×3 (09:14→21:51)
[2021-05-01] MEDS: LANSOPRAZOLE 30 MG SOLTAB PO SCH ×2 (09:14→21:51)
[2021-05-01] MEDS: GABAPENTIN 400 MG CAP PO SCH ×3 (09:14→21:51)
[2021-05-01] MEDS: MULTI VIT W/MINERALS LIQUID 15 ML UDP PO SCH (09:15)
[2021-05-01] MEDS: FLUoxetine HCL 20 MG/5 ML 120ML BTL PO SCH (09:15)
[2021-05-01] MEDS: ADVANCED PROBIOTIC 1250 MG CAPSULE PO SCH (09:15)
[2021-05-01] MEDS: ASCORBIC ACID 500 MG TAB PO SCH (09:15)
[2021-05-01] MEDS: AMIODARONE 200 MG TAB PO SCH (09:15)
[2021-05-01] MEDS: TUBE FEEDING WATER FLUSH GT SCH ×3 (09:16→22:17)
[2021-05-01] MEDS: LORATADINE 10 MG TAB PO SCH (09:16)
[2021-05-01] MEDS: FUROSEMIDE 40 MG TAB PO SCH ×2 (09:16→17:25)
--- NOTE | 2021-05-01 10:04 | Hospitalist Progress Note ---
Date of Service May 01, 2021 Assessment & Plan (1) Pneumonia due to COVID-19 virus: (2) Acute hypoxemic respiratory failure: (3) Atrial fibrillation: Plan: (1) Acute hypoxemic respiratory failure: (2) ARDS (adult respiratory distress syndrome): (3) Pneumonia due to COVID-19 virus: 2/2 covid pneumonia, remains on vent 2/2 ARDS. s/p trach and PEG. Admitting CTA-no evidence of PE. Remdesivir discontinued by pulmonary service Completed dexamethasone 10 days course Baricitinib given for 6 days but discontinued due to acute DVTs (03/06/21) Had completed abx with cefepime and doxycycline for 7 days in Dec Received an additional 7 day course of Zosyn for serratia in the sputum-early Hong Leukocytosis resolved, remains afebrile. Repeat sputum culture sent growing serratia Zosyn restarted (04/11), Stopped (04/13). Repeat serratia in culture noted ID recs monitoring off abx Trach exchanged Tolerating diet well Plan to remove PEG if tolerating diet well after eval in about 4 weeks (end of the month) Currently on trach collar at 8-10l/min Repeat CXR in 4-6 weeks to ensure resolution. Continue with vest therapy prn to help w/ mucociliary clearance. Will need OP eval for decannulation of trach, f/u Pulm as OP. (4) Acute DVT (deep venous thrombosis): Plan: Deep venous thrombosis posterior tibial and peroneal veins; initially noted 03/05/21 Likely provoked by COVID-19 infection & baricitinib use No family history of blood clots per patient's , no personal history of cancer or prior blood clots, patient is non-smoker. Was initially on lovenox, now on warfarin started at 5 mg daily 04/21. INR is 2.3 today. Continue warfarin Monitor INR Needs f/u anticoagulation clinic (5) Atrial fibrillation: Plan: Sinus rhythm. Cont with amiodarone and metoprolol. Anticoagulation with Lovenox ---> warfarin Previous Provider discussed with Cards 04/23 for reconfirmation of his home meds, now that he is more stable and awaiting placement --> continue with metoprolol 25 mg 3 times daily, amiodarone 200 mg daily. Patient will need outpatient cardiology follow-up in a month or so upon DC. (6) Anxiety: Plan: has h/o PTSD per records Currently on fluoxetin Plan: Full Code Dispo-LTAC when bed available.CM working on this Admission and Anticipated Discharge Date Admission Date: March 01, 2021 Subjective Patient seen and examined. Reports occasional cough, unchanged Reported some left ear ache 2 days ago almost resolved Currently on trach collar. Denies any chest pain, nausea, vomiting, diarrhea, abdominal pain Denies dysuria, frequency, urgency Denies fevers or chills Physical Exam Constitutional: + well hydrated; no acute distress Eyes: PERRL, conjunctivae normal, anicteric sclerae ENMT: external ear and nose normal, oropharynx normal Respiratory: On trach collar Diminished breath sounds Cardiovascular: Rate/Rhythm: regular rate and regular rhythm S1 S2 Gastrointestinal (Abdomen): normal bowel sounds, soft, nontender, no hepatosplenomegaly Musculoskeletal: no cyanosis or clubbing, extremities motor strength 5/5 Neurologic: PERRL, EOMI, accommodation nl, no face palsy, no dysarthria Psychiatric: A+Ox3, euthymic affect Results & Data Results & Data ([facility]) Vital Signs (Past 12 Hours) Vital Signs Temp Pulse Pulse Resp BP Pulse Ox 05/01/21 08:25 36.7 C 62 18 124/71 97 05/01/21 07:26 57 L 05/01/21 03:58 36.7 C 57 L 18 122/74 99 04/30/21 23:45 61 04/30/21 23:08 36.6 C 64 18 144/70 H 95 Laboratory Results Abnormal lab results 04/30/21 05/01/21 Range/Units 20:10 05:44 PT 22.0 H (9.0-12.0) Seconds INR 2.3 H (0.9-1.1) POC Glucose 142 H (70-99) mg/dl
[2021-05-01] MEDS: WARFARIN SOD 5 MG TAB PO SCH (17:25)
[2021-05-01] MEDS: MELATONIN 3 MG TAB PO SCH (21:50)
[2021-05-02 07:32] LABS: INR 2.5 (0.9-1.1); Prothrombin Time 23.4 Seconds (9.0-12.0)
[2021-05-02] MEDS: INSULIN HUMAN REGULAR SC SCH ×4 (08:26→23:13)
[2021-05-02] MEDS: ASCORBIC ACID 500 MG TAB PO SCH (08:36)
[2021-05-02] MEDS: LANSOPRAZOLE 30 MG SOLTAB PO SCH ×2 (08:36→21:36)
[2021-05-02] MEDS: METOPROLOL TARTRATE 25 MG TAB PO SCH ×3 (08:36→21:36)
[2021-05-02] MEDS: ADVANCED PROBIOTIC 1250 MG CAPSULE PO SCH (08:36)
[2021-05-02] MEDS: POTASSIUM CHLORIDE 20 MEQ/15 ML UDC PO SCH ×2 (08:36→21:41)
[2021-05-02] MEDS: LORATADINE 10 MG TAB PO SCH (08:36)
[2021-05-02] MEDS: AMIODARONE 200 MG TAB PO SCH (08:36)
[2021-05-02] MEDS: FUROSEMIDE 40 MG TAB PO SCH ×2 (08:36→17:03)
[2021-05-02] MEDS: FLUoxetine HCL 20 MG/5 ML 120ML BTL PO SCH (08:37)
[2021-05-02] MEDS: buPROPion HCl 100 MG TABLET PO SCH ×3 (08:37→21:36)
[2021-05-02] MEDS: MULTI VIT W/MINERALS LIQUID 15 ML UDP PO SCH (08:37)
[2021-05-02] MEDS: FERROUS SULFATE 325 MG/7.4 ML UDP PO SCH (08:38)
[2021-05-02] MEDS: TUBE FEEDING WATER FLUSH GT SCH ×3 (08:38→21:57)
[2021-05-02] MEDS: GABAPENTIN 400 MG CAP PO SCH ×3 (08:38→21:36)
--- NOTE | 2021-05-02 10:54 | Hospitalist Progress Note ---
Date of Service May 02, 2021 Assessment & Plan (1) Pneumonia due to COVID-19 virus: (2) Acute hypoxemic respiratory failure: (3) Atrial fibrillation: Plan: (1) Acute hypoxemic respiratory failure: (2) ARDS (adult respiratory distress syndrome): (3) Pneumonia due to COVID-19 virus: 2/2 covid pneumonia, remains on vent 2/2 ARDS. s/p trach and PEG. Admitting CTA-no evidence of PE. Remdesivir discontinued by pulmonary service Completed dexamethasone 10 days course Baricitinib given for 6 days but discontinued due to acute DVTs (03/06/21) Had completed abx with cefepime and doxycycline for 7 days in Dec Received an additional 7 day course of Zosyn for serratia in the sputum-early Hong Leukocytosis resolved, remains afebrile. Repeat sputum culture sent growing serratia Zosyn restarted (04/11), Stopped (04/13). Repeat serratia in culture noted ID recs monitoring off abx Trach exchanged Tolerating diet well Plan to remove PEG if tolerating diet well after eval in about 4 weeks (end of the month) Currently on trach collar at 8-10l/min Repeat CXR in 4-6 weeks to ensure resolution. Continue with vest therapy prn to help w/ mucociliary clearance. Will need OP eval for decannulation of trach, f/u Pulm as OP. (4) Acute DVT (deep venous thrombosis): Plan: Deep venous thrombosis posterior tibial and peroneal veins; initially noted 03/05/21 Likely provoked by COVID-19 infection & baricitinib use No family history of blood clots per patient's , no personal history of cancer or prior blood clots, patient is non-smoker. Was initially on lovenox, now on warfarin started at 5 mg daily 04/21. INR is 2.5 today. Continue warfarin Monitor INR Needs f/u anticoagulation clinic (5) Atrial fibrillation: Plan: Sinus rhythm. Cont with amiodarone and metoprolol. Anticoagulation with Lovenox ---> warfarin Previous Provider discussed with Cards 04/23 for reconfirmation of his home meds, now that he is more stable and awaiting placement --> continue with metoprolol 25 mg 3 times daily, amiodarone 200 mg daily. Patient will need outpatient cardiology follow-up in a month or so upon DC. (6) Anxiety: Plan: has h/o PTSD per records Currently on fluoxetin Plan: Full Code Dispo-LTAC when bed available.CM working on this Admission and Anticipated Discharge Date Admission Date: March 01, 2021 Subjective Patient seen and examined. Reports occasional cough, unchanged Currently on trach collar. Denies any chest pain, nausea, vomiting, diarrhea, abdominal pain Denies dysuria, frequency, urgency Denies fevers or chills Physical Exam Constitutional: + well hydrated; no acute distress Eyes: PERRL, conjunctivae normal, anicteric sclerae ENMT: external ear and nose normal, oropharynx normal Respiratory: On trach collar. Diminished breath sounds Cardiovascular: Rate/Rhythm: regular rate and regular rhythm S1 S2 Gastrointestinal (Abdomen): normal bowel sounds, soft, nontender, no hepatosplenomegaly Neurologic: PERRL, EOMI, accommodation nl, no face palsy, no dysarthria Psychiatric: A+Ox3, euthymic affect Results & Data Results & Data ([facility]) Vital Signs (Past 12 Hours) Vital Signs Temp Pulse Resp BP Pulse Ox 05/02/21 07:10 36.7 C 60 16 129/68 98 05/02/21 03:24 36.5 C 75 18 116/57 L 96 Laboratory Results Abnormal lab results 05/01/21 05/01/21 05/02/21 Range/Units 16:37 20:02 07:04 PT 23.4 H (9.0-12.0) Seconds INR 2.5 H (0.9-1.1) POC Glucose 122 H 125 H (70-99) mg/dl
[2021-05-02] MEDS: WARFARIN SOD 5 MG TAB PO SCH (17:03)
[2021-05-02] MEDS: guaiFENesin SUGAR FREE 200 MG/10 ML UDC PO PRN (19:31)
[2021-05-02] MEDS: MELATONIN 3 MG TAB PO SCH (21:35)
[2021-05-03] MEDS: ASCORBIC ACID 500 MG TAB PO SCH (08:55)
[2021-05-03] MEDS: buPROPion HCl 100 MG TABLET PO SCH ×3 (08:55→21:27)
[2021-05-03] MEDS: AMIODARONE 200 MG TAB PO SCH (08:55)
[2021-05-03] MEDS: FERROUS SULFATE 325 MG/7.4 ML UDP PO SCH (08:56)
[2021-05-03] MEDS: FLUoxetine HCL 20 MG/5 ML 120ML BTL PO SCH (08:56)
[2021-05-03] MEDS: GABAPENTIN 400 MG CAP PO SCH ×3 (08:57→21:27)
[2021-05-03] MEDS: LORATADINE 10 MG TAB PO SCH (08:57)
[2021-05-03] MEDS: FUROSEMIDE 40 MG TAB PO SCH ×2 (08:57→17:17)
[2021-05-03] MEDS: METOPROLOL TARTRATE 25 MG TAB PO SCH ×3 (08:57→21:27)
[2021-05-03] MEDS: LANSOPRAZOLE 30 MG SOLTAB PO SCH ×2 (08:57→21:27)
[2021-05-03] MEDS: ADVANCED PROBIOTIC 1250 MG CAPSULE PO SCH (08:57)
[2021-05-03] MEDS: MULTI VIT W/MINERALS LIQUID 15 ML UDP PO SCH (08:58)
[2021-05-03] MEDS: POTASSIUM CHLORIDE 20 MEQ/15 ML UDC PO SCH ×2 (08:58→21:27)
[2021-05-03] MEDS: INSULIN HUMAN REGULAR SC SCH ×4 (09:15→21:28)
[2021-05-03] MEDS: TUBE FEEDING WATER FLUSH GT SCH ×3 (09:18→21:40)
--- NOTE | 2021-05-03 11:33 | Hospitalist Progress Note ---
Date of Service May 03, 2021 Assessment & Plan (1) Pneumonia due to COVID-19 virus: (2) Acute hypoxemic respiratory failure: (3) Atrial fibrillation: Plan: (1) Acute hypoxemic respiratory failure: (2) ARDS (adult respiratory distress syndrome): (3) Pneumonia due to COVID-19 virus: 2/2 covid pneumonia, remains on vent 2/2 ARDS. s/p trach and PEG. Admitting CTA-no evidence of PE. Remdesivir discontinued by pulmonary service Completed dexamethasone 10 days course Baricitinib given for 6 days but discontinued due to acute DVTs (03/06/21) Had completed abx with cefepime and doxycycline for 7 days in Dec Received an additional 7 day course of Zosyn for serratia in the sputum-early Hong Leukocytosis resolved, remains afebrile. Repeat sputum culture sent growing serratia Zosyn restarted (04/11), Stopped (04/13). Repeat serratia in culture noted ID recs monitoring off abx Trach exchanged Tolerating diet well Plan to remove PEG if tolerating diet well after eval in about 4 weeks (end of the month) Currently on trach collar at 8-10l/min Repeat CXR in 4-6 weeks to ensure resolution. Continue with vest therapy prn to help w/ mucociliary clearance. Will need OP eval for decannulation of trach, f/u Pulm as OP. (4) Acute DVT (deep venous thrombosis): Plan: Deep venous thrombosis posterior tibial and peroneal veins; initially noted 03/05/21 Likely provoked by COVID-19 infection & baricitinib use No family history of blood clots per patient's , no personal history of cancer or prior blood clots, patient is non-smoker. Was initially on lovenox, now on warfarin started at 5 mg daily 04/21. Continue warfarin Monitor INR Needs f/u anticoagulation clinic (5) Atrial fibrillation: Plan: Sinus rhythm. Cont with amiodarone and metoprolol. Anticoagulation with Lovenox ---> warfarin Previous Provider discussed with Cards 04/23 for reconfirmation of his home meds, now that he is more stable and awaiting placement --> continue with metoprolol 25 mg 3 times daily, amiodarone 200 mg daily. Patient will need outpatient cardiology follow-up in a month or so upon DC. (6) Anxiety: Plan: has h/o PTSD per records Currently on fluoxetin Plan: Full Code Dispo-LTAC when bed available.CM working on this Admission and Anticipated Discharge Date Admission Date: March 01, 2021 Subjective Patient seen and examined. Reports cough Currently on trach collar. Denies any chest pain, nausea, vomiting, diarrhea, abdominal pain Denies dysuria, frequency, urgency Denies fevers or chills Physical Exam Constitutional: + well hydrated; no acute distress Eyes: PERRL, conjunctivae normal, anicteric sclerae ENMT: external ear and nose normal, oropharynx normal Respiratory: On trach collar Diminished breath sounds No crackles Cardiovascular: Rate/Rhythm: regular rate and regular rhythm S1 S2 Gastrointestinal (Abdomen): normal bowel sounds, soft, nontender, no hepatosplenomegaly Musculoskeletal: No pedal edema Neurologic: PERRL, EOMI, accommodation nl, no face palsy, no dysarthria Psychiatric: A+Ox3, euthymic affect Results & Data Results & Data ([facility]) Vital Signs (Past 12 Hours) Vital Signs Temp Pulse Pulse Resp BP Pulse Ox 05/03/21 08:16 36.7 C 55 L 18 112/67 99 05/03/21 07:45 55 L 05/03/21 04:03 37.1 C 57 L 18 118/74 99 Laboratory Results Abnormal lab results 05/03/21 Range/Units 11:45 POC Glucose 115 H (70-99) mg/dl
[2021-05-03] MEDS: BENZONATATE 100 MG CAPSULE PO PRN (15:32)
[2021-05-03] MEDS: WARFARIN SOD 5 MG TAB PO SCH (15:33)
[2021-05-03] MEDS: MELATONIN 3 MG TAB PO SCH (21:30)
[2021-05-04 06:30] LABS: INR 3.5 (0.9-1.1); Prothrombin Time 32.4 Seconds (9.0-12.0)
[2021-05-04] MEDS: GABAPENTIN 400 MG CAP PO SCH ×3 (08:33→20:42)
[2021-05-04] MEDS: ASCORBIC ACID 500 MG TAB PO SCH (08:33)
[2021-05-04] MEDS: LANSOPRAZOLE 30 MG SOLTAB PO SCH ×2 (08:33→20:41)
[2021-05-04] MEDS: FLUoxetine HCL 20 MG CAP PO SCH (08:34)
[2021-05-04] MEDS: FUROSEMIDE 40 MG TAB PO SCH ×2 (08:34→17:27)
[2021-05-04] MEDS: AMIODARONE 200 MG TAB PO SCH (08:36)
[2021-05-04] MEDS: guaiFENesin SUGAR FREE 200 MG/10 ML UDC PO PRN (08:36)
[2021-05-04] MEDS: buPROPion HCl 100 MG TABLET PO SCH ×3 (08:37→20:42)
[2021-05-04] MEDS: LORATADINE 10 MG TAB PO SCH (08:37)
[2021-05-04] MEDS: METOPROLOL TARTRATE 25 MG TAB PO SCH ×3 (08:37→20:42)
[2021-05-04] MEDS: FERROUS SULFATE 325 MG TAB PO SCH (08:37)
[2021-05-04] MEDS: CEROVITE ADV FORMULA TAB PO SCH (08:37)
[2021-05-04] MEDS: ADVANCED PROBIOTIC 1250 MG CAPSULE PO SCH (08:37)
[2021-05-04] MEDS: POTASSIUM CHLORIDE 20 MEQ/15 ML UDC PO SCH ×2 (08:38→20:43)
[2021-05-04] MEDS: INSULIN HUMAN REGULAR SC SCH ×4 (08:49→20:43)
[2021-05-04] MEDS: TUBE FEEDING WATER FLUSH GT SCH ×3 (08:54→20:43)
--- NOTE | 2021-05-04 10:54 | Hospitalist Progress Note ---
Date of Service May 04, 2021 Assessment & Plan (1) Pneumonia due to COVID-19 virus: (2) Acute hypoxemic respiratory failure: (3) Atrial fibrillation: Plan: (1) Acute hypoxemic respiratory failure: (2) ARDS (adult respiratory distress syndrome): (3) Pneumonia due to COVID-19 virus: 2/2 covid pneumonia, remains on vent 2/2 ARDS. s/p trach and PEG. Admitting CTA-no evidence of PE. Remdesivir discontinued by pulmonary service Completed dexamethasone 10 days course Baricitinib given for 6 days but discontinued due to acute DVTs (03/06/21) Had completed abx with cefepime and doxycycline for 7 days in Dec Received an additional 7 day course of Zosyn for serratia in the sputum-early Hong Leukocytosis resolved, remains afebrile. Repeat sputum culture sent growing serratia Zosyn restarted (04/11), Stopped (04/13). Repeat serratia in culture noted ID recs monitoring off abx Trach exchanged Tolerating diet well Plan to remove PEG if tolerating diet well after eval in about 4 weeks (end of the month) Currently on trach collar at 8-10l/min Repeat CXR in 4-6 weeks to ensure resolution. Continue with vest therapy prn to help w/ mucociliary clearance. Will need OP eval for decannulation of trach, f/u Pulm as OP. (4) Acute DVT (deep venous thrombosis): Plan: Deep venous thrombosis posterior tibial and peroneal veins; initially noted 03/05/21 Likely provoked by COVID-19 infection & baricitinib use No family history of blood clots per patient's , no personal history of cancer or prior blood clots, patient is non-smoker. Was initially on lovenox, now on warfarin started at 5 mg daily 04/21. INR is supratherapeutic today at 3.5 Will hold today's warfarin dose and reduce to 4mg daily from tomorrow Needs f/u anticoagulation clinic (5) Atrial fibrillation: Plan: Sinus rhythm. Cont with amiodarone and metoprolol. Anticoagulation with Lovenox ---> warfarin Previous Provider discussed with Cards 04/23 for reconfirmation of his home meds, now that he is more stable and awaiting placement --> continue with metoprolol 25 mg 3 times daily, amiodarone 200 mg daily. Patient will need outpatient cardiology follow-up in a month or so upon DC. (6) Anxiety: Plan: Has h/o PTSD per records Currently on fluoxetin Full Code Dispo-LTAC when bed available.CM working on this Admission and Anticipated Discharge Date Admission Date: March 01, 2021 Subjective Patient seen and examined. Reports occasional cough Currently on trach collar. Denies any chest pain, nausea, vomiting, diarrhea, abdominal pain Denies dysuria, frequency, urgency Denies fevers or chills Physical Exam Constitutional: + well hydrated; no acute distress Eyes: PERRL, conjunctivae normal, anicteric sclerae ENMT: external ear and nose normal, oropharynx normal Respiratory: On trach collar, diminished breath sounds Cardiovascular: Rate/Rhythm: regular rate and regular rhythm S1 S2 Gastrointestinal (Abdomen): normal bowel sounds, soft, nontender, no hepatosplenomegaly Musculoskeletal: No pedal edema Neurologic: PERRL, EOMI, accommodation nl, no face palsy, no dysarthria Psychiatric: A+Ox3, euthymic affect Results & Data Results & Data ([facility]) Vital Signs (Past 12 Hours) Vital Signs Temp Pulse Pulse Resp BP BP Pulse Ox 05/04/21 09:02 59 L 05/04/21 08:35 71 20 118/65 97 05/04/21 07:50 36.7 C 59 L 18 117/62 98 05/04/21 03:08 37 C 69 18 146/74 H 97 Laboratory Results Abnormal lab results 05/03/21 05/03/21 05/04/21 Range/Units 16:46 20:22 05:46 PT 32.4 H (9.0-12.0) Seconds INR 3.5 H (0.9-1.1) POC Glucose 103 H 125 H (70-99) mg/dl 05/04/21 05/04/21 Range/Units 07:29 11:09 PT (9.0-12.0) Seconds INR (0.9-1.1) POC Glucose 105 H 105 H (70-99) mg/dl
[2021-05-04] MEDS: BENZONATATE 100 MG CAPSULE PO PRN ×2 (14:15→17:37)
[2021-05-04] MEDS ORDERED: diphenhydrAMINE Capsule 25 MG CAP PO ONE (20:20)
[2021-05-04] MEDS: MELATONIN 3 MG TAB PO SCH (20:41)
[2021-05-04] MEDS: CALCIUM CARBONATE 500 MG CHEWABLE TAB PO PRN (21:28)
[2021-05-05] MEDS: CEROVITE ADV FORMULA TAB PO SCH (08:20)
[2021-05-05] MEDS: BENZONATATE 100 MG CAPSULE PO PRN ×2 (08:20→12:12)
[2021-05-05] MEDS: ADVANCED PROBIOTIC 1250 MG CAPSULE PO SCH (08:21)
[2021-05-05] MEDS: FERROUS SULFATE 325 MG TAB PO SCH (08:21)
[2021-05-05] MEDS: buPROPion HCl 100 MG TABLET PO SCH ×3 (08:21→20:31)
[2021-05-05] MEDS: FLUoxetine HCL 20 MG CAP PO SCH (08:21)
[2021-05-05] MEDS: AMIODARONE 200 MG TAB PO SCH (08:21)
[2021-05-05] MEDS: LANSOPRAZOLE 30 MG SOLTAB PO SCH ×2 (08:21→20:31)
[2021-05-05] MEDS: GABAPENTIN 400 MG CAP PO SCH ×3 (08:22→20:27)
[2021-05-05] MEDS: ASCORBIC ACID 500 MG TAB PO SCH (08:22)
[2021-05-05] MEDS: METOPROLOL TARTRATE 25 MG TAB PO SCH ×3 (08:22→20:28)
[2021-05-05] MEDS: FUROSEMIDE 40 MG TAB PO SCH ×2 (08:22→16:37)
[2021-05-05] MEDS: TUBE FEEDING WATER FLUSH GT SCH ×2 (08:23→20:35)
[2021-05-05] MEDS: POTASSIUM CHLORIDE 20 MEQ/15 ML UDC PO SCH ×2 (08:23→20:35)
[2021-05-05] MEDS: INSULIN HUMAN REGULAR SC SCH ×4 (08:26→20:24)
[2021-05-05] MEDS: guaiFENesin SUGAR FREE 200 MG/10 ML UDC PO PRN ×2 (09:30→21:39)
[2021-05-05] MEDS: DOCUSATE SODIUM 100 MG CAP PO PRN ×2 (12:12→18:11)
--- NOTE | 2021-05-05 12:19 | Hospitalist Progress Note ---
Date of Service May 05, 2021 Assessment & Plan (1) Pneumonia due to COVID-19 virus: (2) Acute hypoxemic respiratory failure: (3) Atrial fibrillation: Plan: (1) Acute hypoxemic respiratory failure: (2) ARDS (adult respiratory distress syndrome): (3) Pneumonia due to COVID-19 virus: 2/2 covid pneumonia, Trach Collar. s/p trach and PEG. Admitting CTA-no evidence of PE. Completed dexamethasone 10 days course Baricitinib given Had completed abx with cefepime and doxycycline for 7 days in Dec Received an additional 7 day course of Zosyn for serratia in the sputum-early Hong Leukocytosis resolved, remains afebrile. Repeat sputum culture sent growing serratia Zosyn restarted (04/11), Stopped (04/13). Repeat serratia in culture noted ID recs monitoring off abx Trach exchanged Tolerating diet well Plan to remove PEG if tolerating diet well after eval in about 4 weeks (end of the month) Currently on trach collar at 8-10L/min Repeat CXR in 4-6 weeks to ensure resolution. Continue with vest therapy prn to help w/ mucociliary clearance. Will need OP eval for decannulation of trach, f/u Pulm as OP. (4) Acute DVT (deep venous thrombosis): Plan: Deep venous thrombosis posterior tibial and peroneal veins; initially noted 03/05/21 Likely provoked by COVID-19 infection & baricitinib use No family history of blood clots per patient's , no personal history of cancer or prior blood clots, patient is non-smoker. Was initially on lovenox, now on warfarin started at 5 mg daily 04/21. INR is supratherapeutic today at 3.5 Will hold today's warfarin dose and reduce to 4mg daily from tomorrow Needs f/u anticoagulation clinic (5) Atrial fibrillation: Plan: Sinus rhythm. Cont with amiodarone and metoprolol. Anticoagulation with Lovenox ---> warfarin Previous Provider discussed with Cards 04/23 for reconfirmation of his home meds, now that he is more stable and awaiting placement --> continue with metoprolol 25 mg 3 times daily, amiodarone 200 mg daily. Patient will need outpatient cardiology follow-up in a month or so upon DC. (6) Anxiety: Plan: Has h/o PTSD per records Currently on fluoxetine Full Code Labs Checked Dispo-LTAC when bed available.CM working on this ROS-No Headache, No Visual Changes, No Nausea, No Vomiting, No Fever, No Chills, No Neck Pain or Stiffness, No Chest Pain, No Palpitations, No SOB, No MOON, +Cough, No Sputum, No Wheezing, No Abdominal Pain, No Diarrhea, No Hematemesis, No Hemoptysis, No Unexpected Weight Loss, No Flank pain, No Melena, No Hematochezia, No Frequency, No Urgency, No Burning, No Hematuria, No Rashes, No Diaphoresis. Appetite is great, hates trach and Peg Physical Exam Gen-AAO x 3, NAD, Afebrile, trach/peg Head-NCAT, EOMI, PERRLA, Anicteric Sclera, No Posterior Pharyngeal Erythema Neck-Supple, No JVD, No Thyromegaly, No Masses, No LAD, No Bruits Lungs-Clear to Auscultation Bilaterally, No Rales, No Rhonchi, No Wheezing, No Crepitus Chest-No S4, +S1, +S2, No S3, No Murmurs, No Rubs, No Gallops, No Ectopy Abdomen-Soft, Bowel Sounds Present, Non Tender, Non Distended, No Hepatomegaly, No Splenomegaly, No Palpable Masses, No Rebound, No Rigidity, No Guarding Musculoskeletal-Full Range of Motion Bilaterally, No CVAT Extremities-No Cyanosis, No Clubbing, No Edema Nuero-Cranial Nerves II-XII grossly intact, Motor WNL, DTRs WNL, Strength WNL, Non Focal Psych-Normal Mood Admission and Anticipated Discharge Date Admission Date: March 01, 2021 Subjective Patient seen and examined. Reports occasional cough Currently on trach collar. Slowly getting better Results & Data Results & Data ([facility]) Vital Signs (Past 12 Hours) Vital Signs Temp Pulse Pulse Resp BP Pulse Ox 05/05/21 11:18 36.6 C 66 22 108/62 96 05/05/21 07:49 36.6 C 61 18 112/67 100 05/05/21 06:55 78 05/05/21 03:10 36.9 C 56 L 18 111/67 96 Laboratory Results Labs checked
[2021-05-05] MEDS ORDERED: WARFARIN SOD 4 MG TAB PO SCH (16:00)
[2021-05-05] MEDS ORDERED: WARFARIN SOD 3 MG TAB PO SCH (16:30)
[2021-05-05] MEDS: CALCIUM CARBONATE 500 MG CHEWABLE TAB PO PRN (20:17)
[2021-05-05] MEDS: MELATONIN 3 MG TAB PO SCH (20:42)
[2021-05-06 06:27] LABS: INR 2.1 (0.9-1.1); Prothrombin Time 19.7 Seconds (9.0-12.0)
[2021-05-06] MEDS: INSULIN HUMAN REGULAR SC SCH ×4 (08:36→20:16)
[2021-05-06] MEDS: ASCORBIC ACID 500 MG TAB PO SCH (08:41)
[2021-05-06] MEDS: buPROPion HCl 100 MG TABLET PO SCH ×3 (08:43→20:11)
[2021-05-06] MEDS: FLUoxetine HCL 20 MG CAP PO SCH (08:44)
[2021-05-06] MEDS: FERROUS SULFATE 325 MG TAB PO SCH (08:44)
[2021-05-06] MEDS: FUROSEMIDE 40 MG TAB PO SCH ×2 (08:45→17:37)
[2021-05-06] MEDS: GABAPENTIN 400 MG CAP PO SCH ×3 (08:46→20:10)
[2021-05-06] MEDS: ADVANCED PROBIOTIC 1250 MG CAPSULE PO SCH (08:47)
[2021-05-06] MEDS: LANSOPRAZOLE 30 MG SOLTAB PO SCH ×2 (08:48→20:12)
[2021-05-06] MEDS: METOPROLOL TARTRATE 25 MG TAB PO SCH ×3 (08:49→20:12)
[2021-05-06] MEDS: CEROVITE ADV FORMULA TAB PO SCH (08:49)
[2021-05-06] MEDS: POTASSIUM CHLORIDE 20 MEQ/15 ML UDC PO SCH ×2 (08:50→20:13)
[2021-05-06] MEDS: TUBE FEEDING WATER FLUSH GT SCH ×2 (08:50→20:13)
[2021-05-06] MEDS: AMIODARONE 200 MG TAB PO SCH (08:51)
[2021-05-06] MEDS: BENZONATATE 100 MG CAPSULE PO PRN (11:14)
--- NOTE | 2021-05-06 12:47 | Hospitalist Progress Note ---
Date of Service May 06, 2021 Assessment & Plan (1) Pneumonia due to COVID-19 virus: (2) Acute hypoxemic respiratory failure: (3) Atrial fibrillation: Plan: (1) Acute hypoxemic respiratory failure: (2) ARDS (adult respiratory distress syndrome): (3) Pneumonia due to COVID-19 virus: 2/2 covid pneumonia, Trach Collar. s/p trach and PEG. Admitting CTA-no evidence of PE. Completed dexamethasone 10 days course Baricitinib given Had completed abx with cefepime and doxycycline for 7 days in Dec Received an additional 7 day course of Zosyn for serratia in the sputum-early Hong Leukocytosis resolved, remains afebrile. Repeat sputum culture sent growing serratia Zosyn restarted (04/11), Stopped (04/13). Repeat serratia in culture noted ID recs monitoring off abx Trach exchanged Tolerating diet well Plan to remove PEG if tolerating diet well after eval in about 4 weeks (end of the month) Currently on trach collar at 8-10L/min Repeat CXR in 4-6 weeks to ensure resolution. Continue with vest therapy prn to help w/ mucociliary clearance. Will need OP eval for decannulation of trach, f/u Pulm as OP. (4) Acute DVT (deep venous thrombosis): Plan: Deep venous thrombosis posterior tibial and peroneal veins; initially noted 03/05/21 Likely provoked by COVID-19 infection & baricitinib use No family history of blood clots per patient's , no personal history of cancer or prior blood clots, patient is non-smoker. Was initially on lovenox, now on warfarin started at 5 mg daily 04/21. INR is supratherapeutic today at 3.5 Will hold today's warfarin dose and reduce to 4mg daily from tomorrow Needs f/u anticoagulation clinic (5) Atrial fibrillation: Plan: Sinus rhythm. Cont with amiodarone and metoprolol. Anticoagulation with Lovenox ---> warfarin Previous Provider discussed with Cards 04/23 for reconfirmation of his home meds, now that he is more stable and awaiting placement --> continue with metoprolol 25 mg 3 times daily, amiodarone 200 mg daily. Patient will need outpatient cardiology follow-up in a month or so upon DC. (6) Anxiety: Plan: Has h/o PTSD per records Currently on fluoxetine Full Code Labs Checked Dispo-LTAC when bed available.CM working on this ROS-No Headache, No Visual Changes, No Nausea, No Vomiting, No Fever, No Chills, No Neck Pain or Stiffness, No Chest Pain, No Palpitations, No SOB, No MOON, +Cough, No Sputum, No Wheezing, No Abdominal Pain, No Diarrhea, No Hematemesis, No Hemoptysis, No Unexpected Weight Loss, No Flank pain, No Melena, No Hematochezia, No Frequency, No Urgency, No Burning, No Hematuria, No Rashes, No Diaphoresis. Appetite is great, hates trach and Peg Physical Exam Gen-AAO x 3, NAD, Afebrile, trach/peg Head-NCAT, EOMI, PERRLA, Anicteric Sclera, No Posterior Pharyngeal Erythema Neck-Supple, No JVD, No Thyromegaly, No Masses, No LAD, No Bruits Lungs-Clear to Auscultation Bilaterally, No Rales, No Rhonchi, No Wheezing, No Crepitus Chest-No S4, +S1, +S2, No S3, No Murmurs, No Rubs, No Gallops, No Ectopy Abdomen-Soft, Bowel Sounds Present, Non Tender, Non Distended, No Hepatomegaly, No Splenomegaly, No Palpable Masses, No Rebound, No Rigidity, No Guarding Musculoskeletal-Full Range of Motion Bilaterally, No CVAT Extremities-No Cyanosis, No Clubbing, No Edema Nuero-Cranial Nerves II-XII grossly intact, Motor WNL, DTRs WNL, Strength WNL, Non Focal Psych-Normal Mood Admission and Anticipated Discharge Date Admission Date: March 01, 2021 Subjective Patient seen and examined. Looks better each day, very pleasant Reports occasional cough Currently on trach collar. Slowly getting better, Peg can come out after 3 months Results & Data Results & Data ([facility]) Vital Signs (Past 12 Hours) Vital Signs Temp Pulse Pulse Resp BP Pulse Ox 05/06/21 11:00 36.8 C 62 20 111/64 95 05/06/21 07:52 60 05/06/21 07:18 36.6 C 64 18 118/69 100 05/06/21 04:09 36.7 C 62 20 109/63 99 Laboratory Results Reviewed
[2021-05-06] MEDS: WARFARIN SOD 4 MG TAB PO SCH (16:31)
[2021-05-06] MEDS: MELATONIN 3 MG TAB PO SCH (20:16)
[2021-05-07 06:40] LABS: Hematocrit (blood only) 32.9 % (42-52); Hemoglobin 10.3 g/dL (14.0-18.0); Mean Corpuscular Hemoglobin 29.9 pg (25-34); Mean Corpuscular Hgb Conc 31.3 g/dL (32-36); Mean Corpuscular Volume 95.4 fL (80-100); Mean Platelet Volume 9.3 fL (7.4-10.4); Platelet Count 337 K/uL (130-400); RDW Coefficient of Variation 17.4 % (11.5-14.5); RDW Standard Deviation 60.6 fL (36.4-46.3); Red Blood Count 3.45 M/uL (4.7-6.1); White Blood Count 8.48 K/uL (4.8-10.8)
[2021-05-07 07:01] LABS: BUN Creatinine Ratio 26.3 (10-20); Calcium 8.5 mg/dl (8.5-10.1); Creatinine Clr Calc Pharmacy 175.9 ml/min; Est GFR (African American) 131.2 ml/min; Est GFR (Non-African American) 113.2 ml/min; Potassium 3.4 mmol/L (3.5-5.1)
[2021-05-07] MEDS: AMIODARONE 200 MG TAB PO SCH (08:51)
[2021-05-07] MEDS: ASCORBIC ACID 500 MG TAB PO SCH (08:51)
[2021-05-07] MEDS: FERROUS SULFATE 325 MG TAB PO SCH (08:53)
[2021-05-07] MEDS: FUROSEMIDE 40 MG TAB PO SCH ×2 (08:53→17:10)
[2021-05-07] MEDS: ADVANCED PROBIOTIC 1250 MG CAPSULE PO SCH (08:53)
[2021-05-07] MEDS: LANSOPRAZOLE 30 MG SOLTAB PO SCH ×2 (08:53→20:50)
[2021-05-07] MEDS: buPROPion HCl 100 MG TABLET PO SCH ×3 (08:53→20:49)
[2021-05-07] MEDS: FLUoxetine HCL 20 MG CAP PO SCH (08:53)
[2021-05-07] MEDS: GABAPENTIN 400 MG CAP PO SCH ×3 (08:53→20:51)
[2021-05-07] MEDS: CEROVITE ADV FORMULA TAB PO SCH (08:54)
[2021-05-07] MEDS: POTASSIUM CHLORIDE 20 MEQ/15 ML UDC PO SCH ×2 (08:54→20:52)
[2021-05-07] MEDS: METOPROLOL TARTRATE 25 MG TAB PO SCH ×3 (08:54→20:51)
[2021-05-07] MEDS: TUBE FEEDING WATER FLUSH GT SCH ×2 (08:55→20:50)
[2021-05-07] MEDS: INSULIN HUMAN REGULAR SC SCH ×4 (09:00→20:49)
[2021-05-07] MEDS: CYANOCOBALAMIN 1000 MCG/ML VIAL IM SCH (12:37)
--- NOTE | 2021-05-07 13:39 | Hospitalist Progress Note ---
Date of Service May 07, 2021 Assessment & Plan (1) Pneumonia due to COVID-19 virus: (2) Acute hypoxemic respiratory failure: (3) Atrial fibrillation: Plan: (1) Acute hypoxemic respiratory failure: (2) ARDS (adult respiratory distress syndrome): (3) Pneumonia due to COVID-19 virus: 2/2 covid pneumonia, Trach Collar. s/p trach and PEG. Admitting CTA-no evidence of PE. Completed dexamethasone 10 days course Baricitinib given Had completed abx with cefepime and doxycycline for 7 days in Dec Received an additional 7 day course of Zosyn for serratia in the sputum-early Hong Leukocytosis resolved, remains afebrile. Repeat sputum culture sent growing serratia Zosyn restarted (04/11), Stopped (04/13). Repeat serratia in culture noted Trach exchanged Tolerating diet well Plan to remove PEG if tolerating diet June 05 (3 months after Placed per GI) Currently on trach collar at 31% Repeat CXR in 2-3 months after home to ensure resolution of PNA. Continue with vest therapy prn to help w/ mucociliary clearance. [facility] in [place] Monday (4) Acute DVT (deep venous thrombosis): Plan: Deep venous thrombosis posterior tibial and peroneal veins; initially noted 03/05/21 Likely provoked by COVID-19 infection & baricitinib use No family history of blood clots per patient's , no personal history of cancer or prior blood clots, patient is non-smoker. Was initially on lovenox, now on warfarin started at 5 mg daily 04/21. Warfarin as per INR (5) Atrial fibrillation: Plan: Sinus rhythm. Cont with amiodarone and metoprolol. Anticoagulation warfarin Previous Provider discussed with Cards 04/23 for reconfirmation of his home meds, now that he is more stable and awaiting placement --> continue with metoprolol 25 mg 3 times daily, amiodarone 200 mg daily. Patient will need outpatient cardiology follow-up in a month or so upon DC. (6) Anxiety: Plan: Has h/o PTSD per records Currently on fluoxetine Full Code Labs Checked Dispo-LTAC Monday, [facility] in [place] ROS-No Headache, No Visual Changes, No Nausea, No Vomiting, No Fever, No Chills, No Neck Pain or Stiffness, No Chest Pain, No Palpitations, No SOB, No MOON, +Cough, No Sputum, No Wheezing, No Abdominal Pain, No Diarrhea, No Hematemesis, No Hemoptysis, No Unexpected Weight Loss, No Flank pain, No Melena, No Hematochezia, No Frequency, No Urgency, No Burning, No Hematuria, No Rashes, No Diaphoresis. Appetite is great, hates trach and Peg Physical Exam Gen-AAO x 3, NAD, Afebrile, trach/peg, Occ bronchospasm Head-NCAT, EOMI, PERRLA, Anicteric Sclera, No Posterior Pharyngeal Erythema Neck-Supple, No JVD, No Thyromegaly, No Masses, No LAD, No Bruits Lungs-Clear to Auscultation Bilaterally, No Rales, No Rhonchi, No Wheezing, No Crepitus Chest-No S4, +S1, +S2, No S3, No Murmurs, No Rubs, No Gallops, No Ectopy Abdomen-Soft, Bowel Sounds Present, Non Tender, Non Distended, No Hepatomegaly, No Splenomegaly, No Palpable Masses, No Rebound, No Rigidity, No Guarding Musculoskeletal-Full Range of Motion Bilaterally, No CVAT Extremities-No Cyanosis, No Clubbing, No Edema Nuero-Cranial Nerves II-XII grossly intact, Motor WNL, DTRs WNL, Strength WNL, Non Focal Psych-Normal Mood Admission and Anticipated Discharge Date Admission Date: March 01, 2021 Subjective Patient seen and examined. Looks great, very pleasant Reports occasional cough, Cough worse when talking a lot Currently on trach collar. Slowly getting better, Peg can come out after 3 months (July 06) Results & Data Results & Data ([facility]) Vital Signs (Past 12 Hours) Vital Signs Temp Pulse Pulse Resp BP Pulse Ox 05/07/21 12:57 36.7 C 61 16 98/62 L 100 05/07/21 08:05 56 L 05/07/21 07:47 85 19 99 05/07/21 04:22 36.3 C L 59 L 18 117/58 L 97 05/07/21 04:10 61
[2021-05-07] MEDS: WARFARIN SOD 4 MG TAB PO SCH (17:00)
[2021-05-07] MEDS: BENZONATATE 100 MG CAPSULE PO PRN (18:35)
[2021-05-07] MEDS: MELATONIN 3 MG TAB PO SCH (20:54)
[2021-05-08 06:46] LABS: Hematocrit (blood only) 32.9 % (42-52); Hemoglobin 10.2 g/dL (14.0-18.0); Mean Corpuscular Hemoglobin 29.4 pg (25-34); Mean Corpuscular Volume 94.8 fL (80-100); Mean Platelet Volume 9.4 fL (7.4-10.4); Platelet Count 324 K/uL (130-400); RDW Standard Deviation 59.3 fL (36.4-46.3); Red Blood Count 3.47 M/uL (4.7-6.1); White Blood Count 8.65 K/uL (4.8-10.8)
[2021-05-08 06:52] LABS: INR 1.8 (0.9-1.1)
[2021-05-08 07:02] LABS: BUN Creatinine Ratio 27.3 (10-20); Calcium 8.6 mg/dl (8.5-10.1); Creatinine Clr Calc Pharmacy 182.3 ml/min; Est GFR (African American) 133.1 ml/min; Est GFR (Non-African American) 114.9 ml/min; Potassium 3.6 mmol/L (3.5-5.1)
--- NOTE | 2021-05-08 07:18 | Hospitalist Progress Note ---
Date of Service May 08, 2021 Assessment & Plan (1) Pneumonia due to COVID-19 virus: (2) Acute hypoxemic respiratory failure: (3) Atrial fibrillation: Plan: (1) Acute hypoxemic respiratory failure: (2) ARDS (adult respiratory distress syndrome): (3) Pneumonia due to COVID-19 virus: 2/2 covid pneumonia, Trach Collar. s/p trach and PEG. Admitting CTA-no evidence of PE. Completed dexamethasone 10 days course Baricitinib given Had completed abx with cefepime and doxycycline for 7 days in Dec Received an additional 7 day course of Zosyn for serratia in the sputum-early Hong Leukocytosis resolved, remains afebrile. Repeat sputum culture sent growing serratia Zosyn restarted (04/11), Stopped (04/13). Repeat serratia in culture noted Trach exchanged Tolerating diet well Plan to remove PEG if tolerating diet June 05 (3 months after Placed per GI) Currently on trach collar at 31% Repeat CXR in 2-3 months after home to ensure resolution of PNA. Continue with vest therapy prn to help w/ mucociliary clearance. [facility] in [place] Monday (4) Acute DVT (deep venous thrombosis): Plan: Deep venous thrombosis posterior tibial and peroneal veins; initially noted 03/05/21 Likely provoked by COVID-19 infection & baricitinib use No family history of blood clots per patient's , no personal history of cancer or prior blood clots, patient is non-smoker. Was initially on lovenox, now on warfarin started at 5 mg daily 04/21. Warfarin as per INR (5) Atrial fibrillation: Plan: Sinus rhythm. Cont with amiodarone and metoprolol. Anticoagulation warfarin Previous Provider discussed with Cards 04/23 for reconfirmation of his home meds, now that he is more stable and awaiting placement --> continue with metoprolol 25 mg 3 times daily, amiodarone 200 mg daily. Patient will need outpatient cardiology follow-up in a month or so upon DC. (6) Anxiety: Plan: Has h/o PTSD per records Currently on fluoxetine Full Code Labs Checked Dispo-LT[facility] Monday, [facility] in [place] ROS-No Headache, No Visual Changes, No Nausea, No Vomiting, No Fever, No Chills, No Neck Pain or Stiffness, No Chest Pain, No Palpitations, No SOB, No MOON, +Cough, No Sputum, No Wheezing, No Abdominal Pain, No Diarrhea, No Hematemesis, No Hemoptysis, No Unexpected Weight Loss, No Flank pain, No Melena, No Hematochezia, No Frequency, No Urgency, No Burning, No Hematuria, No Rashes, No Diaphoresis. Appetite is great, hates trach and Peg Physical Exam Gen-AAO x 3, NAD, Afebrile, trach/peg, Occ bronchospasm Head-NCAT, EOMI, PERRLA, Anicteric Sclera, No Posterior Pharyngeal Erythema Neck-Supple, No JVD, No Thyromegaly, No Masses, No LAD, No Bruits Lungs-Clear to Auscultation Bilaterally, No Rales, No Rhonchi, No Wheezing, No Crepitus Chest-No S4, +S1, +S2, No S3, No Murmurs, No Rubs, No Gallops, No Ectopy Abdomen-Soft, Bowel Sounds Present, Non Tender, Non Distended, No Hepatomegaly, No Splenomegaly, No Palpable Masses, No Rebound, No Rigidity, No Guarding Musculoskeletal-Full Range of Motion Bilaterally, No CVAT Extremities-No Cyanosis, No Clubbing, No Edema Nuero-Cranial Nerves II-XII grossly intact, Motor WNL, DTRs WNL, Strength WNL, Non Focal Psych-Normal Mood Admission and Anticipated Discharge Date Admission Date: March 01, 2021 Subjective Patient seen and examined. Looks great, very pleasant Reports occasional cough, Cough worse when talking a lot Currently on trach collar. Slowly getting better, Peg can come out after 3 months (July 06) Results & Data Results & Data ([facility]) Vital Signs (Past 12 Hours) Vital Signs Temp Pulse Pulse Resp BP Pulse Ox 05/08/21 04:00 36.7 C 85 20 113/72 98 05/08/21 03:53 68 05/07/21 22:00 36.7 C 71 20 120/67 99
[2021-05-08] MEDS: FERROUS SULFATE 325 MG TAB PO SCH (08:02)
[2021-05-08] MEDS: CEROVITE ADV FORMULA TAB PO SCH (08:03)
[2021-05-08] MEDS: FUROSEMIDE 40 MG TAB PO SCH ×2 (08:03→17:05)
[2021-05-08] MEDS: buPROPion HCl 100 MG TABLET PO SCH ×3 (08:04→21:32)
[2021-05-08] MEDS: LANSOPRAZOLE 30 MG SOLTAB PO SCH ×2 (08:04→21:28)
[2021-05-08] MEDS: GABAPENTIN 400 MG CAP PO SCH ×3 (08:04→21:28)
[2021-05-08] MEDS: METOPROLOL TARTRATE 25 MG TAB PO SCH ×3 (08:05→21:33)
[2021-05-08] MEDS: ADVANCED PROBIOTIC 1250 MG CAPSULE PO SCH (08:06)
[2021-05-08] MEDS: POTASSIUM CHLORIDE 20 MEQ/15 ML UDC PO SCH ×2 (08:06→21:30)
[2021-05-08] MEDS: TUBE FEEDING WATER FLUSH GT SCH ×2 (08:06→21:33)
[2021-05-08] MEDS: FLUoxetine HCL 20 MG CAP PO SCH (08:07)
[2021-05-08] MEDS: ASCORBIC ACID 500 MG TAB PO SCH (08:08)
[2021-05-08] MEDS: AMIODARONE 200 MG TAB PO SCH (08:08)
[2021-05-08] MEDS: INSULIN HUMAN REGULAR SC SCH ×4 (08:20→21:27)
[2021-05-08] MEDS: BENZONATATE 100 MG CAPSULE PO PRN (12:03)
[2021-05-08] MEDS: WARFARIN SOD 4 MG TAB PO SCH (17:07)
[2021-05-08] MEDS: MELATONIN 3 MG TAB PO SCH (21:26)
[2021-05-08] MEDS: guaiFENesin SUGAR FREE 200 MG/10 ML UDC PO PRN (23:20)
[2021-05-09] MEDS: INSULIN HUMAN REGULAR SC SCH ×4 (08:06→22:23)
[2021-05-09] MEDS: ASCORBIC ACID 500 MG TAB PO SCH (08:09)
[2021-05-09] MEDS: FERROUS SULFATE 325 MG TAB PO SCH (08:09)
[2021-05-09] MEDS: METOPROLOL TARTRATE 25 MG TAB PO SCH ×3 (08:10→20:41)
[2021-05-09] MEDS: AMIODARONE 200 MG TAB PO SCH (08:10)
[2021-05-09] MEDS: FLUoxetine HCL 20 MG CAP PO SCH (08:10)
[2021-05-09] MEDS: GABAPENTIN 400 MG CAP PO SCH ×3 (08:11→20:39)
[2021-05-09] MEDS: LANSOPRAZOLE 30 MG SOLTAB PO SCH ×2 (08:12→20:40)
--- NOTE | 2021-05-09 08:12 | Hospitalist Progress Note ---
Date of Service May 09, 2021 Assessment & Plan (1) Pneumonia due to COVID-19 virus: (2) Acute hypoxemic respiratory failure: (3) Atrial fibrillation: Plan: (1) Acute hypoxemic respiratory failure: (2) ARDS (adult respiratory distress syndrome): (3) Pneumonia due to COVID-19 virus: 2/2 covid pneumonia, Trach Collar. s/p trach and PEG. Admitting CTA-no evidence of PE. Completed dexamethasone 10 days course s/p Baricitinib Had completed abx with cefepime and doxycycline for 7 days in Dec Received an additional 7 day course of Zosyn for serratia in the sputum-early Hong Leukocytosis resolved, remains afebrile. Repeat sputum culture sent growing serratia Zosyn restarted (04/11), Stopped (04/13). Repeat serratia in culture noted Trach exchanged Tolerating diet well Plan to remove PEG if tolerating diet June 05 (3 months after Placed per GI) Currently on trach collar at 31% Repeat CXR in 2-3 months after home to ensure resolution of PNA. Continue with vest therapy prn to help w/ mucociliary clearance. [facility] in [place] 05/10 (4) Acute DVT (deep venous thrombosis): Plan: Deep venous thrombosis posterior tibial and peroneal veins; initially noted 02/24 Likely provoked by COVID-19 infection & baricitinib use No family history of blood clots per patient's , no personal history of cancer or prior blood clots, patient is non-smoker. Was initially on lovenox, now on warfarin started at 5 mg daily 04/21. Warfarin as per INR (5) Atrial fibrillation: Plan: Sinus rhythm. Cont with amiodarone and metoprolol. Anticoagulation warfarin Previous Provider discussed with Cards 04/23 for reconfirmation of his home meds, now that he is more stable and awaiting placement --> continue with metoprolol 25 mg 3 times daily, amiodarone 200 mg daily. Patient will need outpatient cardiology follow-up in a month or so upon DC. (6) Anxiety: Plan: Has h/o PTSD per records Currently on fluoxetine Full Code Labs Checked Dispo-LTAC Monday, [facility] in [place] ROS-No Headache, No Visual Changes, No Nausea, No Vomiting, No Fever, No Chills, No Neck Pain or Stiffness, No Chest Pain, No Palpitations, No SOB, No MOON, +Cough, No Sputum, No Wheezing, No Abdominal Pain, No Diarrhea, No Hematemesis, No Hemoptysis, No Unexpected Weight Loss, No Flank pain, No Melena, No Hematochezia, No Frequency, No Urgency, No Burning, No Hematuria, No Rashes, No Diaphoresis. Appetite is great, hates trach and Peg Physical Exam Gen-AAO x 3, NAD, Afebrile, trach/peg, Occ bronchospasm Head-NCAT, EOMI, PERRLA, Anicteric Sclera, No Posterior Pharyngeal Erythema Neck-Supple, No JVD, No Thyromegaly, No Masses, No LAD, No Bruits Lungs-Clear to Auscultation Bilaterally, No Rales, No Rhonchi, No Wheezing, No Crepitus Chest-No S4, +S1, +S2, No S3, No Murmurs, No Rubs, No Gallops, No Ectopy Abdomen-Soft, Bowel Sounds Present, Non Tender, Non Distended, No Hepatomegaly, No Splenomegaly, No Palpable Masses, No Rebound, No Rigidity, No Guarding Musculoskeletal-Full Range of Motion Bilaterally, No CVAT Extremities-No Cyanosis, No Clubbing, No Edema Nuero-Cranial Nerves II-XII grossly intact, Motor WNL, DTRs WNL, Strength WNL, Non Focal Psych-Normal Mood Admission and Anticipated Discharge Date Admission Date: March 01, 2021 Subjective Patient seen and examined. Looks great, very pleasant Reports occasional cough, Cough worse when talking a lot Currently on trach collar. Slowly getting better, Peg can come out after 3 months (July 06) Results & Data Results & Data ([facility]) Vital Signs (Past 12 Hours) Vital Signs Temp Pulse Pulse Resp BP Pulse Ox 05/09/21 06:07 68 05/09/21 03:50 36.6 C 58 L 18 116/64 98 05/08/21 23:01 36.8 C 67 18 115/66 95
[2021-05-09] MEDS: FUROSEMIDE 40 MG TAB PO SCH ×2 (08:13→15:41)
[2021-05-09] MEDS: ADVANCED PROBIOTIC 1250 MG CAPSULE PO SCH (08:13)
[2021-05-09] MEDS: buPROPion HCl 100 MG TABLET PO SCH ×3 (08:15→20:38)
[2021-05-09] MEDS: TUBE FEEDING WATER FLUSH GT SCH ×2 (08:15→20:53)
[2021-05-09] MEDS: CEROVITE ADV FORMULA TAB PO SCH (08:15)
[2021-05-09] MEDS: POTASSIUM CHLORIDE 20 MEQ/15 ML UDC PO SCH ×2 (08:18→20:41)
[2021-05-09] MEDS ORDERED: WARFARIN SOD 5 MG TAB PO SCH (16:00)
[2021-05-09] MEDS: guaiFENesin SUGAR FREE 200 MG/10 ML UDC PO PRN (22:20)
[2021-05-09] MEDS: MELATONIN 3 MG TAB PO SCH (22:20)
[2021-05-10 04:03] VITALS: TEMP 97.9; O2SAT 98
[2021-05-10] MEDS: METOPROLOL TARTRATE 25 MG TAB PO SCH (07:09)
[2021-05-10] MEDS: AMIODARONE 200 MG TAB PO SCH (07:10)
[2021-05-10 07:19] LABS: Hematocrit (blood only) 32.6 % (42-52); Hemoglobin 10.2 g/dL (14.0-18.0); Mean Corpuscular Hemoglobin 29.6 pg (25-34); Mean Corpuscular Hgb Conc 31.3 g/dL (32-36); Mean Corpuscular Volume 94.5 fL (80-100); Platelet Count 294 K/uL (130-400); RDW Coefficient of Variation 16.7 % (11.5-14.5); RDW Standard Deviation 58.4 fL (36.4-46.3); Red Blood Count 3.45 M/uL (4.7-6.1); White Blood Count 7.51 K/uL (4.8-10.8)
[2021-05-10 07:36] LABS: BUN Creatinine Ratio 20.4 (10-20); Calcium 8.5 mg/dl (8.5-10.1); Creatinine Clr Calc Pharmacy 185.6 ml/min; Est GFR (African American) 134.1 ml/min; Est GFR (Non-African American) 115.7 ml/min; Potassium 3.8 mmol/L (3.5-5.1)
[2021-05-10 07:38] LABS: INR 1.7 (0.9-1.1); Prothrombin Time 16.4 Seconds (9.0-12.0)
[2021-05-10] MEDS: ASCORBIC ACID 500 MG TAB PO SCH (09:16)
[2021-05-10] MEDS: FLUoxetine HCL 20 MG CAP PO SCH (09:16)
[2021-05-10] MEDS: GABAPENTIN 400 MG CAP PO SCH (09:16)
[2021-05-10] MEDS: CEROVITE ADV FORMULA TAB PO SCH (09:18)
[2021-05-10] MEDS: buPROPion HCl 100 MG TABLET PO SCH (09:18)
[2021-05-10] MEDS: ADVANCED PROBIOTIC 1250 MG CAPSULE PO SCH (09:18)
[2021-05-10] MEDS: FUROSEMIDE 40 MG TAB PO SCH (09:19)
[2021-05-10] MEDS: FERROUS SULFATE 325 MG TAB PO SCH (09:19)
[2021-05-10] MEDS: LANSOPRAZOLE 30 MG SOLTAB PO SCH (09:19)
[2021-05-10] MEDS: POTASSIUM CHLORIDE 20 MEQ/15 ML UDC PO SCH (09:20)
[2021-05-10] MEDS: TUBE FEEDING WATER FLUSH GT SCH (09:20)
--- NOTE | 2021-05-10 10:32 | Discharge Summary ---
Date of Service May 10, 2021 Admission HPI Per Admitting Provider History obtained from patient and records. Medical history significant for hypertension, hyperlipidemia, chronic back pain, mood disorder/PTSD, past tobacco abuse. Patient noted dry cough symptoms and shortness of breath about 8 days ago. Not sure about sick contacts but patient got sick at the same time as patient. Has not received COVID-19 vaccination. Chest pain with coughing. Fever chills at home poor appetite. O2 sats 70s upon arrival at the ER. Decadron administered at the ER. 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 Admission Exam Per Admitting Provider GENERAL: Slightly uncomfortable, obese, pleasant, no respiratory distress SKIN: Normal color, warm HEENT: Alopecia, [place] palpebral conjunctivae, no ptosis, dry buccal mucosa, nasal cannula in place NECK : Supple, short neck, no tenderness CHEST : Decreased breath sounds, no tenderness HEART : RRR, no obvious murmurs ABDOMEN: Some distention, nontender EXTREMITIES : No LE swelling/tenderness, no other conspicuous deformities noted NEUROLOGIC : Coherent, no facial asymmetry, no other gross focality Principal Diagnosis (1) Acute hypoxemic respiratory failure: (2) ARDS (adult respiratory distress syndrome): (3) Pneumonia due to COVID-19 virus: (4) Acute DVT (deep venous thrombosis): (5) Atrial fibrillation: (6) Anxiety/Hx PTSD Discharge Exam See below Discharge Data Allergies Allergy/AdvReac Type Severity Reaction Status Date / Time lisinopril Allergy Intermediate Angioedema Verified 02/28/21 21:58 pentazocine [From [facility]] AdvReac Mild Vomiting Verified 02/28/21 21:58 Consultations 02/28/21 21:50 ED Decision to Admit Stat 03/02/21 13:23 Consult Pulmonology Routine 03/30/21 13:32 Consult Cardiology Routine 04/05/21 12:49 Consult Gastroenterology Routine 04/12/21 12:56 Consult Infectious Diseases Routine 04/16/21 08:21 Consult Psychiatry Routine Procedures Performed Operation Date: 04/07/21 16:30 Actual Procedures p EGD Gastric Tube Placement - Noah Jones MD Ordered Studies 02/28/21 20:22 CT angio chest PE protocol Urgent 03/04/21 17:51 US liver Routine 03/05/21 21:58 US venous doppler LE RT Urgent 03/30/21 08:20 CT abd pelvis IV con only Routine CT chest diagnostic w con Routine CT soft tissue neck w con Routine 04/01/21 09:48 US venous doppler LE BI Routine 04/02/21 17:35 CT head/brain wo con Routine Current Diagnoses Anemia, unspecified (03/01/21) Anxiety disorder, unspecified (03/01/21) Post-traumatic stress disorder, unspecified (03/01/21) Pulmonary hypertension, unspecified (03/01/21) Unspecified atrial fibrillation (03/01/21) Unspecified atrial flutter (03/01/21) Acute embolism and thrombosis of unspecified deep veins of unspecified lower extremity (03/01/21) Pneumonia due to coronavirus disease 2019 (03/01/21) Acute respiratory distress syndrome (03/01/21) Acute respiratory failure with hypoxia (03/01/21) Hypoxemia (03/01/21) Dysphagia, unspecified (03/01/21) COVID-19 (03/01/21) Allergies lisinopril Allergy (Intermediate, Verified 02/28/21 21:58) Angioedema pentazocine [From [facility]win] Adverse Reaction (Mild, Verified 02/28/21 21:58) Vomiting Height/Weight/Isolation Height 6 ft 1 in Weight 100.2 kg Isolation Type Removed Precautions Chemistry 05/10/21 06:56 Sodium 140 Potassium 3.8 Chloride 105 Carbon Dioxide 29 Anion Gap 6 BUN 11 Creatinine 0.54 L Glucose 84 Hospital Course (1) Pneumonia due to COVID-19 virus: (2) Acute hypoxemic respiratory failure: (3) Atrial fibrillation: (1) Acute hypoxemic respiratory failure: (2) ARDS (adult respiratory distress syndrome): (3) Pneumonia due to COVID-19 virus: 2/2 covid pneumonia, Trach Collar. s/p trach 03/23 and PEG 04/07. Admitting CTA- no evidence of PE. Completed dexamethasone 10 days course Remdisivir 5 day course s/p Baricitinib Had completed abx with cefepime and doxycycline for 7 days in Dec Received an additional 7 day course of Zosyn for serratia in the sputum-early Hong Leukocytosis resolved, remains afebrile. Repeat sputum culture sent growing serratia Zosyn restarted (04/11), Stopped (04/13). Repeat serratia in culture noted Trach exchanged Tolerating diet well Plan to remove PEG if tolerating diet June 05 (3 months after Placed per GI) Currently on trach collar at 31% Repeat CXR in 2-3 months after home to ensure resolution of PNA. Continue with vest therapy prn to help w/ mucociliary clearance. [facility] today (4) Acute DVT (deep venous thrombosis): Plan: Deep venous thrombosis posterior tibial and peroneal veins; initially noted 03/05/21 Likely provoked by COVID-19 infection & baricitinib use No family history of blood clots per patient's , no personal history of cancer or prior blood clots, patient is non-smoker. Was initially on lovenox, now on warfarin started 04/21. Warfarin as per INR (5) Atrial fibrillation: Plan: Sinus rhythm. Cont with amiodarone and metoprolol. Anticoagulation warfarin Previous Provider discussed with Cards 04/23 for reconfirmation of his home meds, now that he is more stable and awaiting placement --> continue with metoprolol 25 mg 3 times daily, amiodarone 200 mg daily. Patient will need outpatient cardiology follow-up in a month or so upon DC. 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 Appetite is great. Physical Exam Gen-AAO x 3, NAD, Afebrile, trach/peg, Occ bronchospasm Head-NCAT, EOMI, PERRLA, Anicteric Sclera, No Posterior Pharyngeal Erythema Neck-Supple, No JVD, No Thyromegaly, No Masses, No LAD, No Bruits Lungs-Clear to Auscultation Bilaterally, No Rales, No Rhonchi, No Wheezing, No Crepitus Chest-No S4, +S1, +S2, No S3, No Murmurs, No Rubs, No Gallops, No Ectopy Abdomen-Soft, Bowel Sounds Present, Non Tender, Non Distended, No Hepatomegaly, No Splenomegaly, No Palpable Masses, No Rebound, No Rigidity, No Guarding Musculoskeletal-Full Range of Motion Bilaterally, No CVAT Extremities-No Cyanosis, No Clubbing, No Edema Nuero-Cranial Nerves II-XII grossly intact, Motor WNL, DTRs WNL, Strength WNL, Non Focal Psych-Normal Mood Total Time Total Time Spent Total Time Spent (In Minutes): 45 mins Total Time Includes: Examination of the Patient, Discharge Planning, Medication Reconciliation and Communication With Other Providers Discharge Plan Discharge Items Patient Disposition: Transfer to LTAC Reason For Visit: RESPIRATORY FAILURE, COVID Discharge Diagnosis: (1) Acute hypoxemic respiratory failure: (2) ARDS (adult respiratory distress syndrome): (3) Pneumonia due to COVID-19 virus: (4) Acute DVT (deep venous thrombosis): (5) Atrial fibrillation: (6) Anxiety/Hx PTSD Condition on Discharge: Good Activity: Per Instructions section Activity Comment: As tolerated Lifting: Gradually increase as tolerated Bathing: Keep incision dry Bathing Comment: Keep Peg and Trach dry Sexual Activity: When tolerated Exercise/Sports: Gradually increase as tolerated Driving/Machine Use: Resume 3 days after discharge Weightbearing: Full weightbearing Non-emergency contact: Primary Care Provider, Manager Validation and Adult Daycare Coordinator Call non-emergency contact if: you have any medication questions Follow-up/Referrals: Fidel Dodge MD [Primary Care Provider] - Noah Jones MD [Physician] - (Call for appointment to remove PEG tube in May (On or about the )) Jason Samuel DO [Manager Validation] - (Call for first opening when discharged from [facility]) Mateo Mcmanus MD [Physician] - (Follow appointment to remove Trach down the road) Diet: Regular Addtl Attending Provider Instructions: Wean oxygen and goal to remove Peg in May Pending Studies at Discharge: No Stand-Alone Forms: My [facility] Skilled Items Patient informed of condition?: Yes DNR: No Discharge Level of Care: Acute rehab Communicable Disease: No Discharge Prognosis: Improving Lines: None Urinary Catheter: No Medications and DC Order Prescriptions: No Action fluoxetine [Prozac] 40 mg capsule 40 mg PO QAM RF: 0 bupropion HCl 300 mg tablet extended release 24 hr 300 mg PO PM RF: 0 lansoprazole 30 mg capsule,delayed release(DR/EC) 30 mg PO BID RF: 0 carvedilol 6.25 mg tablet 6.25 mg PO BID RF: 0 ezetimibe 10 mg tablet 10 mg PO QAM RF: 0 hydrochlorothiazide 25 mg tablet 25 mg PO QAM RF: 0 amlodipine [Norvasc] 5 mg tablet 5 mg PO QAM RF: 0 gabapentin 400 mg capsule 400 mg PO TID RF: 0 cyanocobalamin (vitamin B-12) 1,000 mcg capsule 1,000 mcg PO HS RF: 0 ketoconazole 2 % shampoo 1 applic topical Q14D RF: 0 fluticasone propionate [Children's Flonase Allergy Rlf] 50 mcg/actuation spray,suspension 2 spray intranasal DAILY RF: 0 cholecalciferol (vitamin D3) 25 mcg (1,000 unit) capsule 25 mcg PO HS RF: 0 pseudoephedrine HCl [Sudafed 12 Hour] 120 mg tablet extended release 120 mg PO Q12H PRN (Reason: nasal congestion) RF: 0 hydrocodone bitartrate 10 mg capsule, oral only, ER 12hr 10 mg PO Q12H PRN (Reason: Pain) RF: 0 ibuprofen [Motrin IB] 200 mg tablet 200 mg PO Q6H PRN (Reason: Pain) RF: 0 Admission Data Admit Date/Time: 03/01/21 01:01 Attending Provider: Sg Lang Admit Provider: Jennifer Paris I. Primary Care Provider: Fidel Dodge Other Providers: Luis Manuel Mata ; Herlinda,Specialty [place] ; Crow Tuttle ; Shaun Becker ; Mateo Mcmanus ; Jason Samuel ; Carmen Sousa ; Alicia Mendoza ; Arturo Aguilar ; Marguerite Han ; Parth James ; Marie Richards ; Noah Jones ; Marshall Tobias ; Soha Boyer ; Sanjuana Barksdale ; Sangeeta Kinsey ; Freda Ambrose ; Renetta Sagastume ; Anton Ellington ; Amish Garzon ; Shiva Shelton I. ; Marko Root II ; Ama Matthews ; Carl Cabrera ; Joesph Katz ; Cristal Borges ; Emilia Marcelino ; Sisi Posada ; Hunter Turner
[2021-05-10 11:40] VITALS: BP 118/65; PULSE 70
== END 2021-05-10 14:38 | DRG 4 ==
LOC: ED 20:05 → EDINP 03-01 01:01 → SUATTDRO 03-01 01:01 → 2W 03-01 20:30 → 2S 03-02 01:47 → 1E 03-19 10:48 → 2N 04-20 14:23